=== PATIENT | female | born 1945 | race Caucasian/White ===

== ENCOUNTER 2017-07-11 16:09 | Inpatient (IN) | payer OTHER ==
[~2017-07-11] VITALS: Ht 157.5 cm; Wt 78.7 kg
[~2017-07-11 16:09] MED LIST: CIPR-255 PO; METR-163 PO; PRLSR20 PO; RANI300T2 PO
[2017-07-11] MEDS ORDERED: DILTIAZEM HCL 5 MG/ML 5 ML VIAL IV STA (16:34)
[2017-07-11] MEDS ORDERED: ALBUT/IPRATROP 3MG/0.5MG NEB 3 ML VIAL INH STA ×2 (16:34→17:53)
[2017-07-11] MEDS ORDERED: SODIUM CHLORIDE 0.9% 500ML 500 ML IV STA ×2 (16:34→17:53)
[2017-07-11] MEDS ORDERED: AZITHROMYCIN 250 MG TAB PO STA (16:34)
--- NOTE | 2017-07-11 16:36 | EMERGENCY ROOM VISIT NOTE ---
History Report prepared by Jeri: Corona Ruby Under the Supervision of: Dr. Eder Del Cid M.D. First contact with patient: 16:23 Chief Complaint: SHORTNESS OF BREATH Stated Complaint: OTHER Nursing Triage Summary: Patient presents to triage via wheelchair, states "Two weeks ago, I had a bacterial infection in my sinuses. I was on an antibiotic, I think amoxicillin, and it gave me the diarrhea. I finished that and started coughing and feeling short of breath. I saw my doctor on Monday a week ago, and he put me on steriods and cough medication. I took all of that and I still don't feel good. I am still short of breath. I am bringing up white phlegm when I cough. I am nauseated and burping a lot. I have a headache, body aches and my chest feels very heavy. Sometimes, when I am coughing or moving around, I almost feel like I could pass out." EKG completed in triage; patient is in A.Fib. Patient denies a history of A.Fib. History of Present Illness The patient is a 72 year old white female with a past medical history of an abdominal aneurysm, diverticulosis, GERD, hypokalemia, tobacco abuse who presents to the ED with a cc of worsening shortness of breath beginning earlier today. Positive nausea, headache, dizziness, cough. Negative abdominal pain, vomiting, bowel movement problems, urinary symptoms, leg swelling. She notes that she has been short of breath "for days", but today the shortness of breath got much worse and has been constant, and she is short of breath with laying flat. The patient states that her breathing difficulties are not worsened with exertion. She adds that she has been having a cough with white phlegm. She notes that she was on an antibiotic recently for a sinus infection, and was on a regiment of steroids that she just finished a few days ago. The patient notes no recent travels, or any history of blood clots in her legs or lungs. She states that she only takes reflux medications daily. She has smoked for most of her life, and states that she smokes a pack a day, but over the past week she has decreased her number of cigarettes. Source of History: patient Onset: Earlier today Position: other (global) Symptom Intensity: "can't breathe" Quality: other (shortness of breath) Timing: worsening Associated Symptoms: + headache, + nausea, No vomiting, No abdominal pain, No urinary symptoms Note: Positive dizziness. Negative leg swelling, bowel movement problems. Review of Systems See HPI for pertinent positives and negatives. A total of ten systems were reviewed and were otherwise negative. Past Medical & Surgical Medical Problems: (1) Abdominal aneurysm (2) Carpal tunnel syndrome (3) Colon polyp (4) Diverticulosis (5) GERD (gastroesophageal reflux disease) (6) Sciatica (7) Tobacco abuse Surgical Problems: (1) H/O tubal ligation Family History Diabetes mellitus FATHER SISTER FH: colon cancer MOTHER FH: heart disease FATHER SISTER Social History Smoking Status: Current Every Day Smoker Marital Status: Housing Status: lives with significant other Occupation Status: retired Current/Historical Medications Scheduled Omeprazole (Prilosec), 20 MG PO BID Ranitidine (Zantac), 300 MG PO HS Allergies Coded Allergies: Adhesives (Verified Allergy, Mild, BLISTERS, 07/11/17) NO KNOWN DRUG ALLERGIES (Verified Allergy, Mild, ., 07/11/17) Physical Exam Vital Signs Date Time Temp Pulse Resp B/P (MAP) Pulse Ox O2 Delivery O2 Flow Rate FiO2 07/11/17 18:34 118 23 114/63 93 Room Air 07/11/17 16:50 104 29 119/72 100 Mask 6.0 Nebulizer 07/11/17 16:47 100 Mask 6.0 07/11/17 16:20 95 Room Air 07/11/17 16:11 36.7 137 20 104/71 95 Room Air Physical Exam GENERAL: Awake, alert, well-appearing, mild distress, wearing glasses HENT: Normocephalic, atraumatic. Edentulous. EYES: Normal conjunctiva. Sclera non-icteric. NECK: Supple. No nuchal rigidity. FROM. RESPIRATORY: Diffuse inspiratory and expiratory wheezing throughout. Mild tachypnea. CARDIAC: Tachy and irregular, no MRG ABDOMEN: Soft, NTND, BS+ MSK: No chest wall TTP, no LE edema. Negative Homans sign, no calf pain. NEURO: GCS 15, CN 2-12 intact, moves all 4s on command SKIN: No rash or jaundice noted. Medical Decision & Procedures ER Provider Diagnostic Interpretation: X-ray: Per my interpretation, radiologist review. CHEST ONE VIEW PORTABLE CLINICAL HISTORY: EVALUATE RESPIRATORY DISTRESS.DYSPNEA COMPARISON STUDY: Chest radiograph June 05, 2015. FINDINGS: Lung volumes are normal. No pneumothorax or pleural effusion is noted. There is no consolidation or evidence for pulmonary edema. Cardiac size is normal. Mediastinal contours are normal. IMPRESSION: No acute cardiopulmonary findings. Electronically signed by: Sunil Kramer M.D. 07/11/2017 5:05 PM Dictated Date/Time: 07/11/2017 5:05 PM Laboratory Results 07/11/17 16:47 Red Blood Count 5.60, Mean Corpuscular Volume 85.2, Mean Corpuscular Hemoglobin 29.6, Mean Corpuscular Hemoglobin Concent 34.8, Mean Platelet Volume 11.4, Neutrophils (%) (Auto) 55.4, Lymphocytes (%) (Auto) 33.9, Monocytes (%) (Auto) 8.1, Eosinophils (%) (Auto) 2.0, Basophils (%) (Auto) 0.2, Neutrophils # (Auto) 6.97, Lymphocytes # (Auto) 4.26, Monocytes # (Auto) 1.02, Eosinophils # (Auto) 0.25, Basophils # (Auto) 0.02 07/11/17 16:47 Test 07/11/17 16:47 07/11/17 18:11 White Blood Count 12.57 K/uL (4.8-10.8) Red Blood Count 5.60 M/uL (4.2-5.4) Hemoglobin 16.6 g/dL (12.0-16.0) Hematocrit 47.7 % (37-47) Mean Corpuscular Volume 85.2 fL (80-100) Mean Corpuscular Hemoglobin 29.6 pg (25-34) Mean Corpuscular Hemoglobin Concent 34.8 g/dl (32-36) Platelet Count 303 K/uL (130-400) Mean Platelet Volume 11.4 fL (7.4-10.4) Neutrophils (%) (Auto) 55.4 % Lymphocytes (%) (Auto) 33.9 % Monocytes (%) (Auto) 8.1 % Eosinophils (%) (Auto) 2.0 % Basophils (%) (Auto) 0.2 % Neutrophils # (Auto) 6.97 K/uL (1.4-6.5) Lymphocytes # (Auto) 4.26 K/uL (1.2-3.4) Monocytes # (Auto) 1.02 K/uL (0.11-0.59) Eosinophils # (Auto) 0.25 K/uL (0-0.5) Basophils # (Auto) 0.02 K/uL (0-0.2) RDW Standard Deviation 42.8 fL (36.4-46.3) RDW Coefficient of Variation 13.7 % (11.5-14.5) Immature Granulocyte % (Auto) 0.4 % Immature Granulocyte # (Auto) 0.05 K/uL (0.00-0.02) Prothrombin Time 10.0 SECONDS (9.0-12.0) Prothromb Time International Ratio 1.0 (0.9-1.1) Activated Partial Thromboplast Time 25.2 SECONDS (21.0-31.0) Partial Thromboplastin Ratio 1.0 Anion Gap 9.0 mmol/L (3-11) Est Creatinine Clear Calc Drug Dose 53.3 ml/min Estimated GFR () 69.4 Estimated GFR (Non- 59.9 BUN/Creatinine Ratio 15.3 (10-20) Calcium Level 8.8 mg/dl (8.5-10.1) Phosphorus Level 2.9 mg/dl (2.5-4.9) Magnesium Level 2.3 mg/dl (1.8-2.4) Total Bilirubin 0.7 mg/dl (0.2-1) Aspartate Amino Transf (AST/SGOT) 22 U/L (15-37) Alanine Aminotransferase (ALT/SGPT) 47 U/L (12-78) Alkaline Phosphatase 155 U/L (45-117) Troponin I < 0.015 ng/ml (0-0.045) Pro-B-Type Natriuretic Peptide 268 pg/ml (0-900) Total Protein 7.4 gm/dl (6.4-8.2) Albumin 3.3 gm/dl (3.4-5.0) Globulin 4.1 gm/dl (2.5-4.0) Albumin/Globulin Ratio 0.8 (0.9-2) Venous Blood pH 7.45 (7.36-7.41) Venous Blood Partial Pressure CO2 34 mmHg (38.0-50.0) Venous Blood Partial Pressure O2 43 mmHg Venous Blood HCO3 23 mmol/L Venous Blood Oxygen Saturation 79.2 % Venous Blood Base Excess -0.2 mEq/L Laboratory results reviewed by me Medications Administered Medications (Trade) Dose Ordered Sig/Nataliya Route Start Time Stop Time Status Last Admin Dose Admin Albuterol/ Ipratropium (Duoneb) 6 ml NOW STAT INH 07/11/17 16:34 07/11/17 16:39 DC 07/11/17 16:46 6 ML Azithromycin (Zithromax Tab) 500 mg NOW STAT PO 07/11/17 16:34 07/11/17 16:39 DC 07/11/17 16:46 500 MG Sodium Chloride 500 ml @ 999 mls/hr Q31M STAT IV 07/11/17 16:34 07/11/17 17:04 DC 07/11/17 16:46 999 MLS/HR Diltiazem HCl (Cardizem Inj) 20 mg NOW STAT IV 07/11/17 16:34 07/11/17 16:39 DC 07/11/17 16:43 20 MG Potassium Chloride (Klor-Con Tab) 40 meq NOW STAT PO 07/11/17 17:34 07/11/17 17:35 DC 07/11/17 17:50 40 MEQ Sodium Chloride 500 ml @ 999 mls/hr Q31M STAT IV 07/11/17 17:53 07/11/17 18:23 DC 07/11/17 18:34 999 MLS/HR Albuterol/ Ipratropium (Duoneb) 6 ml ONE STAT INH 07/11/17 17:53 07/11/17 17:54 DC 07/11/17 18:33 6 ML Magnesium Sulfate (Magnesium Sulfate) 1 gm NOW STAT IV 07/11/17 17:53 07/11/17 17:54 DC 07/11/17 18:33 1 GM ECG Per My Interpretation Indication: SOB/dyspnea Rate (beats per minute): 134 Rhythm: atrial fibrillation (with RVR) Findings: other (normal qrs, normal axis, questionable twi in avl) ED Course 162: The patient was evaluated in room B8. A complete history and physical exam was performed. 1737: Upon reexamination, the patient is still wheezing but feels a little better. I discussed the test results and treatment plan with her. The patient will be evaluated for further management. 1747: Discussed the patient's case with Marge Guillen. The patient will be evaluated for further treatment and disposition. Medical Decision Nursing notes reviewed. Ancillary studies and prior records reviewed. The patient is a 72 year old white female with a past medical history of an abdominal aneurysm, diverticulosis, GERD, hypokalemia, tobacco abuse who presents to the ED with a cc of worsening shortness of breath beginning earlier today. Positive nausea, headache, dizziness, cough. Negative abdominal pain, vomiting, bowel movement problems, urinary symptoms, leg swelling. Differential diagnosis: Etiologies such as infections, reactive airway disease, pneumonia, pneumothorax , COPD, CHF, cardiac ischemia, pulmonary embolism, musculoskeletal, gastrointestinal, as well as others were entertained. Patient was seen and evaluated the bedside. She was presenting with some shortness of breath. Patient has had an upper respiratory infection for which she was being treated with antibiotics and then had finished a course of steroids for some respiratory issues. Patient does have a significant smoking history of approximately 50 pack years. Patient was counseled on smoking cessation. Patient was told that this along with likely undiagnosed COPD given her inspiratory and expiratory wheezing, as well as her irregular heart rate is rapid or probably all contributing. Patient does not have any lower extremity swelling patient and has no calf pain. Patient did have blood work completed, EKG, troponin, BNP, chest x-ray. Patient also had a VBG ordered. The patient was given to duo nebs. She was also given IV fluids as well as some diltiazem. Diltiazem was given instead of beta-debbie given her likely concomitant COPD exacerbation and need for beta agonist. Upon reassessment the patient is feeling mildly improved. Patient's tachycardia had improved. Patient does still have expiratory wheezes. The patient was ordered some additional duo nebs, IV fluids, and some magnesium. Patient does have a chads vascular score of 4. I did discuss that the patient would likely need to be anticoagulated given patient's A. fib. I am unsure as to when she would have started to have the A. fib and the patient is also unsure. Patient's blood work was otherwise fairly unremarkable. Patient blood cell count was at the high end of normal. Patient had normal kidney function although did have some likely prerenal azotemia. Patient was given fluids. Patient was given the azithromycin given the possible COPD exacerbation and productive sputum. Patient's troponin was undetectable. Patient's BNP was not elevated. I did discuss the patient's case with the on-call hospitalist who agreed to further evaluate and treat the patient. Medication Reconcilliation Current Medication List: was personally reviewed by me Blood Pressure Screening Patient's blood pressure: Normal blood pressure Consults Time Called: 1743 Consulting Physician: Marge Guillen Returned Call: [phone] Discussed the patient's case with Marge Guillen. The patient will be evaluated for further treatment and disposition. Impression Primary Impression: Atrial fibrillation with RVR Additional Impressions: COPD exacerbation Encounter for smoking cessation counseling Hypokalemia Critical Care I have personally spent greater than 50 minutes of critical care time in the direct management of this patient. This includes bedside care, interpretation of diagnostic studies, and testing, discussion with consultants, patient, and family members, and other required patient management activities. This 50 minutes is in excess of all separately billable procedures. Scribe Attestation The scribe's documentation has been prepared under my direction and personally reviewed by me in its entirety. I confirm that the note above accurately reflects all work, treatment, procedures, and medical decision making performed by me. Departure Information Dispostion Being Evaluated By Hospitalist Referrals No Doctor, Assigned (PCP) Patient Instructions My [facility] Problem Qualifiers
[2017-07-11 17:01] LABS: BASO % 0.2 %; BASO ABS # 0.02 K/uL (0-0.2); EOS ABS # 0.25 K/uL (0-0.5); HEMATOCRIT 47.7 % (37-47); HEMOGLOBIN 16.6 g/dL (12.0-16.0); IG# 0.05 K/uL (0.00-0.02); LYMPH % 33.9 %; LYMPH ABS # 4.26 K/uL (1.2-3.4); MEAN CELL VOLUME 85.2 fL (80-100); MEAN CORPUSCULAR HEMOGLOBIN 29.6 pg (25-34); MEAN CORPUSCULAR HGB CONC 34.8 g/dl (32-36); MEAN PLATELET VOLUME 11.4 fL (7.4-10.4); MONO % 8.1 %; MONO ABS # 1.02 K/uL (0.11-0.59); NEUT % 55.4 %; NEUT ABS # 6.97 K/uL (1.4-6.5); PLATELET COUNT 303 K/uL (130-400); RED CELL DISTRIBUTION WIDTH CV 13.7 % (11.5-14.5); RED CELL DISTRIBUTION WIDTH SD 42.8 fL (36.4-46.3); WHITE BLOOD COUNT 12.57 K/uL (4.8-10.8)
--- NOTE | 2017-07-11 17:06 | DIAGNOSTIC IMAGING REPORT ---
CHEST ONE VIEW PORTABLE CLINICAL HISTORY: EVALUATE RESPIRATORY DISTRESS.DYSPNEA COMPARISON STUDY: Chest radiograph June 05, 2015. FINDINGS: Lung volumes are normal. No pneumothorax or pleural effusion is noted. There is no consolidation or evidence for pulmonary edema. Cardiac size is normal. Mediastinal contours are normal. IMPRESSION: No acute cardiopulmonary findings. Electronically signed by: Sunil Kramer M.D. 07/11/2017 5:05 PM Dictated Date/Time: 07/11/2017 5:05 PM
[2017-07-11 17:07] LABS: PTT PATIENT 25.2 SECONDS (21.0-31.0)
[2017-07-11 17:18] LABS: ALBUMIN 3.3 gm/dl (3.4-5.0); AST/SGOT 22 U/L (15-37); BLOOD UREA NITROGEN 15 mg/dl (7-18); CALCIUM 8.8 mg/dl (8.5-10.1); CARBON DIOXIDE 22 mmol/L (21-32); CREATININE 0.96 mg/dl (0.60-1.20); GLUCOSE 185 mg/dl (70-99); POTASSIUM 3.4 mmol/L (3.5-5.1); SODIUM 137 mmol/L (136-145)
[2017-07-11 17:23] LABS: ALKALINE PHOSPHATASE 155 U/L (45-117); ALT/SGPT 47 U/L (12-78); PHOSPHORUS 2.9 mg/dl (2.5-4.9); TOTAL PROTEIN 7.4 gm/dl (6.4-8.2)
[2017-07-11] MEDS ORDERED: POTASSIUM CHLORIDE 20 MEQ TABCR PO STA (17:34)
[2017-07-11] MEDS ORDERED: MAGNESIUM SULFATE 1GM / D5W 1 GM BAG IV STA (17:53)
[2017-07-11] MEDS ORDERED: ACETAMINOPHEN 325 MG TAB PO PRN (19:15)
[2017-07-11] MEDS ORDERED: ONDANSETRON INJ 2 MG/ML 2 ML VIAL IV PRN (19:15)
[2017-07-11] MEDS ORDERED: NITROGLYCERIN 0.4 MG SL PER TAB CHARGE SL PRN (19:15)
[2017-07-11] MEDS ORDERED: ASPIRIN 81 MG ECTAB PO STA (19:34)
[2017-07-11] MEDS ORDERED: LEVALBUTEROL 0.63MG/3 ML NEB INH PRN (19:45)
[2017-07-11] MEDS ORDERED: METOPROLOL TARTRATE 1 MG/ML VIAL IV PRN (19:45)
[2017-07-11] MEDS ORDERED: LEVALBUTEROL/IPRATROPIUM NEB INH PRN (19:45)
[2017-07-11] MEDS ORDERED: IPRATROPIUM BROMIDE NEB SOLN 0.02% 2.5 ML VIAL INH PRN (19:45)
--- NOTE | 2017-07-11 20:07 | History and Physical ---
History & Physical Date & Time of Service: Jul 11, 2017 at 19:41 Chief Complaint: OTHER Primary Care Physician: Venu Olivera D.O. History of Present Illness Source: patient, clinic records, hospital records Pt is 72 y/o F with PMH diverticulitis s/p sigmoid colectomy, GERD, hiatal hernia presented to ER with c/o SOB x 1 week. States a couple of weeks ago had sinus congestion/MITCHELL and was treated for sinusitis. States was feeling a little better then one week ago started with nausea, SOB, anterior chest tightness and heaviness and cough productive white sputum. Hasn't been eating or drinking well past week. Seen at urgent care and was started on prednisone x 6 days. Pt states finished on 07/08/17. Symptoms of SOB, chest tightness worse today prompting ER visit. Seen by PCP 05/08/17 for chest pain with cough and had negative PE CT scan at that time and pt states was feeling well after until the sinus symptoms started. Pt denies previous dx COPD in past. Is 1ppd smoker x 30 years. Reports grandson had URI symptoms recently also. Denies fever/chills, diaphoresis, V/D/C, dizziness, syncope, vision changes, neck pain, orthopnea, palpitations, choking, abdominal pain, paresthesias, weakness, extremity weakness, extremity edema, rashes, urinary symptoms, or night sweats. In ER found to be in a-fib. HR in reported in 150's. Also reported significant wheezing. Was given Cardizem 20mg, 500ml bolus NSS, duoneb x 2 and additional NSS 500ml bolus, zithromax 500mg po. HR down to 104-118. Past Medical/Surgical History Medical Problems: (1) Abdominal aneurysm Status: Chronic (2) Carpal tunnel syndrome Status: Chronic (3) Colon polyp Status: Resolved (4) Colonic diverticular abscess Status: Resolved (5) Diverticulitis Status: Resolved (6) Diverticulosis Status: Chronic (7) Encounter for smoking cessation counseling Status: Resolved (8) GERD (gastroesophageal reflux disease) Status: Chronic (9) Sciatica Status: Chronic (10) Tobacco abuse Status: Chronic Surgical Problems: (1) H/O tubal ligation Status: Chronic (2) Hx of colectomy Permanent Comment: 12/2015 - diverticulitis - hx sigmoid colectomy - [facility] Status: Resolved Family History Diabetes mellitus FATHER SISTER FH: colon cancer MOTHER FH: heart disease FATHER SISTER Social History Smoking Status: Current Every Day Smoker (1ppd x 30 years) Smokeless Tobacco Use: No Alcohol Use: none Drug Use: none Marital Status: Housing status: lives with family Occupational Status: retired Allergies Coded Allergies: Adhesives (Verified Allergy, Mild, BLISTERS, 07/11/17) NO KNOWN DRUG ALLERGIES (Verified Allergy, Mild, ., 07/11/17) Home Medications Scheduled Omeprazole (Prilosec), 20 MG PO BID Ranitidine (Zantac), 300 MG PO HS Review of Systems See HPI for pertinent positives & negatives. All other systems reviewed and were otherwise negative Physical Exam Vital Signs Date Time Temp Pulse Resp B/P (MAP) Pulse Ox O2 Delivery O2 Flow Rate FiO2 07/11/17 18:34 118 23 114/63 93 Room Air 07/11/17 16:50 104 29 119/72 100 Mask 6.0 Nebulizer 07/11/17 16:47 100 Mask 6.0 07/11/17 16:20 95 Room Air 07/11/17 16:11 36.7 137 20 104/71 95 Room Air General Appearance: WD/WN, no apparent distress Head: normocephalic, atraumatic Eyes: normal inspection, sclerae normal ENT: hearing grossly normal, pharynx normal, + pertinent finding (mucous membranes dry) Neck: supple, trachea midline Respiratory/Chest: no respiratory distress, no accessory muscle use, + decreased breath sounds, + wheezing (scattered throughout) Cardiovascular: no murmur, + tachycardia, + irregularly irregular Abdomen/GI: normal bowel sounds, non tender, soft Extremities/Musculoskelatal: normal capillary refill, no pedal edema, non- tender Neurologic/Psych: alert, normal mood/affect, oriented x 3 Skin: normal color, warm/dry Diagnostics Laboratory Results Results Past 24 Hours Test 07/11/17 16:47 07/11/17 18:11 Range/Units White Blood Count 12.57 4.8-10.8 K/uL Red Blood Count 5.60 4.2-5.4 M/uL Hemoglobin 16.6 12.0-16.0 g/dL Hematocrit 47.7 37-47 % Mean Corpuscular Volume 85.2 80-100 fL Mean Corpuscular Hemoglobin 29.6 25-34 pg Mean Corpuscular Hemoglobin Concent 34.8 32-36 g/dl Platelet Count 303 130-400 K/uL Mean Platelet Volume 11.4 7.4-10.4 fL Neutrophils (%) (Auto) 55.4 % Lymphocytes (%) (Auto) 33.9 % Monocytes (%) (Auto) 8.1 % Eosinophils (%) (Auto) 2.0 % Basophils (%) (Auto) 0.2 % Neutrophils # (Auto) 6.97 1.4-6.5 K/uL Lymphocytes # (Auto) 4.26 1.2-3.4 K/uL Monocytes # (Auto) 1.02 0.11-0.59 K/uL Eosinophils # (Auto) 0.25 0-0.5 K/uL Basophils # (Auto) 0.02 0-0.2 K/uL RDW Standard Deviation 42.8 36.4-46.3 fL RDW Coefficient of Variation 13.7 11.5-14.5 % Immature Granulocyte % (Auto) 0.4 % Immature Granulocyte # (Auto) 0.05 0.00-0.02 K/uL Prothrombin Time 10.0 9.0-12.0 SECONDS Prothromb Time International Ratio 1.0 0.9-1.1 Activated Partial Thromboplast Time 25.2 21.0-31.0 SECONDS Partial Thromboplastin Ratio 1.0 Sodium Level 137 136-145 mmol/L Potassium Level 3.4 3.5-5.1 mmol/L Chloride Level 106 98-107 mmol/L Carbon Dioxide Level 22 21-32 mmol/L Anion Gap 9.0 3-11 mmol/L Blood Urea Nitrogen 15 7-18 mg/dl Creatinine 0.96 0.60-1.20 mg/dl Est Creatinine Clear Calc Drug Dose 53.3 ml/min Estimated GFR () 69.4 Estimated GFR (Non- 59.9 BUN/Creatinine Ratio 15.3 10-20 Random Glucose 185 70-99 mg/dl Calcium Level 8.8 8.5-10.1 mg/dl Phosphorus Level 2.9 2.5-4.9 mg/dl Magnesium Level 2.3 1.8-2.4 mg/dl Total Bilirubin 0.7 0.2-1 mg/dl Aspartate Amino Transf (AST/SGOT) 22 15-37 U/L Alanine Aminotransferase (ALT/SGPT) 47 12-78 U/L Alkaline Phosphatase 155 45-117 U/L Troponin I < 0.015 0-0.045 ng/ml Pro-B-Type Natriuretic Peptide 268 0-900 pg/ml Total Protein 7.4 6.4-8.2 gm/dl Albumin 3.3 3.4-5.0 gm/dl Globulin 4.1 2.5-4.0 gm/dl Albumin/Globulin Ratio 0.8 0.9-2 Venous Blood pH 7.45 7.36-7.41 Venous Blood Partial Pressure CO2 34 38.0-50.0 mmHg Venous Blood Partial Pressure O2 43 mmHg Venous Blood HCO3 23 mmol/L Venous Blood Oxygen Saturation 79.2 % Venous Blood Base Excess -0.2 mEq/L Diagnostic Radiology CXR: IMPRESSION: No acute cardiopulmonary findings. EKG EKG: a-fib rvr, rate 134, non-specific t-wave abnormality Impression Assessment and Plan A-FIB RVR New onset. In ER found to be in a-fib. HR in reported in 150's upon initial ER. Was given Cardizem 20mg, total 1L NSS. HR down to 104-118. Negative initial troponin. Pt was recently on prednisone for URI and cough symptoms. Pt clinically appears dehydrated. Probable secondary to dehydration, recent illness -TSH added -IVF -heparin IV -trend troponin -echo -lopressor 5mg IV HR>110 -metoprolol 25mg po BID -cardiology consult COPD EXACERBATION Pt finished 6 day course prednisone on 07/08/17. Pt with probable COPD with hx 1ppd x 30 year smoker. URI symptoms and diffuse wheezing on exam today. Afebrile. Given duoneb x 2 and Zithromax 500mg po in ER. -influenza swab -Xopenex/Atrovent -doxycycline -Prednisone 40mg po -O2 per protocol -IVF -repeat CBC, PRP in am LEUKOCYTOSIS WBC: 12. Pt finished prednisone 6 day course on 07/08/17. Probable elevation from steroids. Negative CXR -repeat CBC -doxycycline HYPOKALEMIA K: 3.4. Pt given 40meq K in ER. Probable secondary to poor oral intake. -monitor electrolytes HYPERGLYCEMIA Glucose: 185. No hx DM. probable steroid induced HA1c added -Novolog sliding scale GERD -continue PPI, H2 debbie Hx DIVERTICULITIS S/P SIGMOID COLECTOMY No diarrhea or abdominal pain DVT Prophylaxis -Heparin IV Disposition admit tele DNR/DNI as per discussion with pt Follows with Dr Olivera for routine care Pt was seen with Dr Loyola. See addendum Attending Note: Patient is a 72 yr female presents with history of SOB, nausea, dizziness, chest heaviness/tightness, poor appetite and productive cough as per HPI. Patient had recent URI and recently completed prednisone course. Patient was found to be in Atrial Fibrillation with HR in 140s. Please review HPI for complete details. Physical Exam: Vitals signs as noted above General Appearance:Moderately built and nourished, no apparent distress Head: normocephalic, Atraumatic Eyes: normal inspection, EOMI, PERRL Neck: supple, Trachea midline Respiratory/Chest: Coarse breath sounds, B/L wheezing Cardiovascular: Irregularly Irregular, No murmur Abdomen/GI:Soft, Non tender, Bowel sounds present Extremities/Musculoskelatal:normal inspection, no edema Neurologic/Psych:AAOX3, grossly no focal neurological deficits Skin:normal color,warm Assessment and Plan: New Onset Afib RVR: CHDS2 score:2 Started on IV Heparin ggt for anticoagulation TSH: normal Check ECHO CXR: no acte process Monitor electrolytes Start on metoprolol Lopressor PRN Cardiology consulted Trend cardiac enzymes replace electrolytes Acute on Chronic [employer] exacerbation: Agree with above management I personally reviewed the record. Patient is interviewed and examined at bedside. Patient's care is coordinated with Marge Blanchard PA-C. Please refer to the documentation above for details of patient's presentation and for discussion of other issues. Resuscitation Status DNR/DNI VTE Prophylaxis Will order VTE Prophylaxis: Yes Additional Copies To Venu Olivera D.O.
[2017-07-11] MEDS: IPRATROPIUM BROMIDE NEB SOLN 0.02% 2.5 ML VIAL INH SCH (20:11)
[2017-07-11] MEDS: LEVALBUTEROL 1.25MG/0.5ML NEB INH SCH (20:12)
[2017-07-11] MEDS ORDERED: GLUCOSE 40% GEL 15 GM TUBE PO PRN (20:15)
[2017-07-11] MEDS ORDERED: GLUCOSE 10 TABS/TUBE PO PRN (20:15)
[2017-07-11] MEDS ORDERED: DEXTROSE 50% 50 ML SYR IV PRN (20:15)
[2017-07-11] MEDS ORDERED: GLUCAGON FOR INJ 1 MG VIAL SQ PRN (20:15)
[2017-07-11] MEDS ORDERED: HEPARIN 25000 UNIT/500 ML D5W ONE (20:24)
[2017-07-11] MEDS ORDERED: HEPARIN SOD 5000 UNIT/0.5 ML CARP ONE (20:24)
[2017-07-11 20:38] VITALS: BP 119/78; PULSE 130; TEMP 36.4; O2SAT 98; Ht 157.5 cm; Wt 78.7 kg
[2017-07-11] MEDS ORDERED: LEVALBUTEROL/IPRATROPIUM NEB INH SCH (21:00)
[2017-07-11] MEDS ORDERED: SODIUM CHLORIDE 0.9% 1000ML 1,000 ML IV SCH (21:15)
[2017-07-11] MEDS ORDERED: HEPARIN IV BOLUS 5,000 UNIT in SYRINGE 0 ML IV ONE (21:30)
[2017-07-11] MEDS: PANTOprazole SOD 40 MG TAB PO SCH (21:39)
[2017-07-11] MEDS: METOPROLOL TARTRATE 25 MG TAB PO SCH (21:39)
[2017-07-11] MEDS: RANITIDINE HCL 150 MG TAB PO SCH (21:40)
[2017-07-11] MEDS: DOXYCYCLINE HYCLATE 100 MG CAP PO SCH (21:40)
[2017-07-11] MEDS: INSULIN ASPART 100 UNITS/ML 3 ML PEN SC SCH (21:42)
[2017-07-11] MEDS: HEPARIN 25,000 UNIT/500ML D5W 500 ML IV SCH (21:46)
[2017-07-11 22:54] LABS: INFLUENZA A PCR Neg for Influ A (NEG); INFLUENZA B PCR Neg for Influ B (NEG)
[2017-07-11] MEDS ORDERED: POTASSIUM CHLORIDE 10 MEQ TABCR PO STA (23:17)
[2017-07-11 23:20] VITALS: BP 97/60; PULSE 74; TEMP 37; O2SAT 96
[2017-07-12] VITALS (9 sets, daily range): BP systolic 98–115; BP diastolic 61–69; PULSE 60–85; TEMP 36.4–37; O2SAT 92–98
[2017-07-12] MEDS: IPRATROPIUM BROMIDE NEB SOLN 0.02% 2.5 ML VIAL INH SCH ×4 (01:58→19:55)
[2017-07-12] MEDS: LEVALBUTEROL 1.25MG/0.5ML NEB INH SCH ×4 (01:59→19:55)
[2017-07-12 02:50] LABS: HEMOGLOBIN 13.4 g/dL (12.0-16.0); MEAN CELL VOLUME 86.5 fL (80-100); MEAN CORPUSCULAR HEMOGLOBIN 29.7 pg (25-34); MEAN CORPUSCULAR HGB CONC 34.4 g/dl (32-36); MEAN PLATELET VOLUME 10.8 fL (7.4-10.4); PLATELET COUNT 242 K/uL (130-400); RED CELL DISTRIBUTION WIDTH CV 14.2 % (11.5-14.5); RED CELL DISTRIBUTION WIDTH SD 44.3 fL (36.4-46.3); WHITE BLOOD COUNT 11.57 K/uL (4.8-10.8)
[2017-07-12 03:04] LABS: CALCIUM 8.2 mg/dl (8.5-10.1); CREATININE 0.83 mg/dl (0.60-1.20); POTASSIUM 5.4 mmol/L (3.5-5.1)
[2017-07-12] MEDS ORDERED: INSULIN GLARGINE SOLOSTAR 100 UNITS/ML 3 ML PEN SC ONE (03:09)
[2017-07-12] MEDS: HEPARIN 25,000 UNIT/500ML D5W 500 ML IV SCH ×2 (04:07→18:59)
[2017-07-12 07:28] LABS: HEMOGLOBIN A1C 6.2 % (4.5-5.6)
[2017-07-12] MEDS: PANTOprazole SOD 40 MG TAB PO SCH ×2 (08:11→20:46)
[2017-07-12] MEDS: DOXYCYCLINE HYCLATE 100 MG CAP PO SCH ×2 (08:11→20:46)
[2017-07-12] MEDS: METOPROLOL TARTRATE 25 MG TAB PO SCH ×2 (08:11→20:46)
[2017-07-12] MEDS: INSULIN ASPART 100 UNITS/ML 3 ML PEN SC SCH ×4 (08:13→20:45)
--- NOTE | 2017-07-12 09:59 | Clinical Documentation Query ---
DINA Mata : CLINICAL DOCUMENTATION QUERY Patient is a 72 year old female admitted for evaluation and treatment of atrial fibrillation with RVR and COPD exacerbation. Initially treated with IV Cardizem and IVF boluses. Initial HR of 150's down to 110's with these measures. Heparin infusion was initiated. Serum troponin of 0.103 ng/ml, with 0.093 ng/ml this a.m. Admission EKG with non-specific T wave abnormality. Patient has since converted to NSR with resolution of T wave abnormality. As appropriate, consider documentation as suggested below. Thank you. In your clinical opinion is this patient being managed for: ( x ) (Possible/Suspected) Myocardial demand ischemia ( ) Not Agree ( ) Other explanation of clinical findings (Please Explain) ( ) Unable to determine (Please Define) ( ) Need to Discuss The medical record reflects the following clinical findings, treatment, and risk factors. Clinical Indicators: As above Treatment: Initially treated with IV Cardizem and IVF boluses. Initial HR of 150's down to 110's with these measures. Heparin infusion was initiated. Serial EKG's and troponin's. Cardiology consultation, telemetry Risk Factors: Age, atrial fibrillation with RVR. smoker Please clarify and document your clinical opinion in the progress notes and discharge summary. Terms such as "probable", "suspected", "likely", "questionable", "possible", or "still to be ruled out" are acceptable. IF IN AGREEMENT, YOU MUST DOCUMENT ABOVE DIAGNOSTIC STATEMENT IN DAILY PROGRESS NOTES AND DISCHARGE SUMMARY. This document is not part of the patient's record. Thank You, Rafy Bella, BAKARI [phone]
--- NOTE | 2017-07-12 10:15 | Cardiology Consultation ---
Cardiology Consultation Date of Consultation: Jul 12, 2017 Requesting Physician: Milla Attending [employer] Mechanic: Lloyd (Price De PA-C) History of Present Illness History of Present Illness: Ms. iSmmons is a 72-year-old female who is being seen at the request of Ms. Marge Blanchard PA-C/Dr. Kole Loyola MD. reason for consultation is atrial fibrillation. Patient describes having a recent sinus infection that was treated at the [facility]. A couple days later she developed what she describes as a severe chest cold that was treated with a 6 day course of prednisone (completed on Monday). Thereafter she continued to have a cough and feel poorly. She notes not being able to get her breath, nausea, no appetite. Yesterday she went to [facility] to pay her bills where she was very tired and dyspneic with minimal activity. She left [facility] and went back home to rest. She later returned to [facility] and continued to feel poorly. She then called her niece who transported her to the [facility] Emergency Room where she was seen and evaluated. EKG on presentation revealed new onset atrial fibrillation with rapid ventricular response. She was given 20 mg IV Cardizem, Duoneb x 2, fluid resuscitation, and zithromax. She was then admitted to telemetry. At 23:01:30 the patient converted from atrial fibrillation with a rapid ventricular response to sinus bradycardia with a 5.1 second conversion pause that was symptomatic. (Price De PA-C) Past Medical/Surgical History Problem List: Splenic artery aneurysm Colonic diverticular abscess status post partial colectomy. Chronic tobacco abuse GERD. Hiatal hernia Sciatica Carpal tunnel syndrome Tubal ligation (Price De PA-C) Family History Mother had a history of colon cancer, passing at the age of 81 with a myocardial infarction. Father with an CO at 69. Brother with an CO 53. Sister status post mitral valve surgery. (Price De PA-C) Diabetes mellitus FATHER SISTER FH: colon cancer MOTHER FH: heart disease FATHER SISTER (Irving Desai D.O.) Social History Smoker, currently 1 pack per day. She smoked for approximately 40 years. No significant alcohol use. No illegal drug use. . 2 children, 1 son and 1 daughter. Daughter with Retired, working for [employer] in [place] in the [employer] department. Resides in [place] (Price De PA-C) Review Of Systems Complete review of systems: Glasses. Cataracts. Floaters. GERD. Reflux. Hiatal hernia. Nausea. Vomiting last night 1. Diarrhea. Decreased appetite. History of colonic polyps. Partial colectomy for diverticulitis. Sciatica. Osteoarthritis. Diverticulosis. Carpal tunnel status post release. No current fevers or chills. No headaches. No head trauma. Stable exertional dyspnea. No orthopnea or PND. No lower extremity peripheral edema. No hemoptysis. No history of TIA, CVA, or seizure. The patient denies prior cardiac history. She specifically denies history of arrhythmias, heart murmur, rheumatic fever, scarlet fever, congestive heart failure, coronary artery disease, or myocardial infarction. Complete review of systems is otherwise as stated above, negative, noncontributory. (Price De PA-C) Allergies Coded Allergies: Adhesives (Verified Allergy, Mild, BLISTERS, 07/11/17) NO KNOWN DRUG ALLERGIES (Verified Allergy, Mild, ., 07/11/17) Medications Reported Home Medications Medications Dose Route/Sig Max Daily Dose Days Date Category Zantac (Ranitidine HCl) 300 Mg Tab 300 Mg PO HS 06/05/15 Reported Prilosec (Omeprazole) 20 Mg Capcr 20 Mg PO BID 06/05/15 Reported (Price De PA-C) Physical Exam Vital Signs (Last 8hrs): Last 8 Hrs Date Time Temp Pulse Resp B/P (MAP) Pulse Ox O2 Delivery O2 Flow Rate FiO2 07/12/17 08:00 Room Air 07/12/17 07:42 36.7 72 19 98/61 (73) 98 Nasal Cannula 2.0 07/12/17 07:20 69 18 98 Nasal Cannula 2.0 07/12/17 04:00 Nasal Cannula 07/12/17 03:38 37.0 61 17 103/62 (76) 95 Nasal Cannula 2.0 07/12/17 01:59 71 18 96 Nasal Cannula 2.0 General: Alert and Oriented x3. NAD. HEENT: Normocephalic Atraumatic. PER, EOMI, conjunctiva and sclera clear Neck: Supple. No carotid bruits noted. No JVD. No HJD. Respiratory: Decreased breath sounds. Diminished. Faint right upper expiratory wheeze. No rales. No rhonchi. Cardiovascular: Regular rate and rhythm, 74 bpm. Grade 2 systolic ejection murmur. No diastolic murmur. No rub. No gallop. PMI is nondisplaced. Abdomen: Normal bowel sounds, soft nontender. no abdominal bruits. Extremities: No edema, no clubbing or cyanosis. distal pulses 2/4 bilaterally. Neuro: No focal deficits. Psychiatric: Normal affect. (Price De PA-C) Data Last 24 Hours Test 07/11/17 16:47 07/11/17 18:11 07/11/17 21:36 07/11/17 21:53 White Blood Count 12.57 K/uL Red Blood Count 5.60 M/uL Hemoglobin 16.6 g/dL Hematocrit 47.7 % Mean Corpuscular Volume 85.2 fL Mean Corpuscular Hemoglobin 29.6 pg Mean Corpuscular Hemoglobin Concent 34.8 g/dl Platelet Count 303 K/uL Mean Platelet Volume 11.4 fL Neutrophils (%) (Auto) 55.4 % Lymphocytes (%) (Auto) 33.9 % Monocytes (%) (Auto) 8.1 % Eosinophils (%) (Auto) 2.0 % Basophils (%) (Auto) 0.2 % Neutrophils # (Auto) 6.97 K/uL Lymphocytes # (Auto) 4.26 K/uL Monocytes # (Auto) 1.02 K/uL Eosinophils # (Auto) 0.25 K/uL Basophils # (Auto) 0.02 K/uL RDW Standard Deviation 42.8 fL RDW Coefficient of Variation 13.7 % Immature Granulocyte % (Auto) 0.4 % Immature Granulocyte # (Auto) 0.05 K/uL Prothrombin Time 10.0 SECONDS Prothromb Time International Ratio 1.0 Activated Partial Thromboplast Time 25.2 SECONDS Partial Thromboplastin Ratio 1.0 Sodium Level 137 mmol/L Potassium Level 3.4 mmol/L Chloride Level 106 mmol/L Carbon Dioxide Level 22 mmol/L Anion Gap 9.0 mmol/L Blood Urea Nitrogen 15 mg/dl Creatinine 0.96 mg/dl Est Creatinine Clear Calc Drug Dose 53.3 ml/min Estimated GFR () 69.4 Estimated GFR (Non- 59.9 BUN/Creatinine Ratio 15.3 Random Glucose 185 mg/dl Calcium Level 8.8 mg/dl Phosphorus Level 2.9 mg/dl Magnesium Level 2.3 mg/dl Total Bilirubin 0.7 mg/dl Aspartate Amino Transf (AST/SGOT) 22 U/L Alanine Aminotransferase (ALT/SGPT) 47 U/L Alkaline Phosphatase 155 U/L Troponin I < 0.015 ng/ml Pro-B-Type Natriuretic Peptide 268 pg/ml Total Protein 7.4 gm/dl Albumin 3.3 gm/dl Globulin 4.1 gm/dl Albumin/Globulin Ratio 0.8 Thyroid Stimulating Hormone (TSH) 1.370 uIu/ml Venous Blood pH 7.45 Venous Blood Partial Pressure CO2 34 mmHg Venous Blood Partial Pressure O2 43 mmHg Venous Blood HCO3 23 mmol/L Venous Blood Oxygen Saturation 79.2 % Venous Blood Base Excess -0.2 mEq/L Bedside Glucose 172 mg/dl Influenza Type A (RT-PCR) Neg for Influ A Influenza Type B (RT-PCR) Neg for Influ B Test 07/11/17 23:04 07/12/17 02:17 07/12/17 03:21 07/12/17 06:13 Troponin I 0.103 ng/ml 0.093 ng/ml White Blood Count 11.57 K/uL Red Blood Count 4.51 M/uL Hemoglobin 13.4 g/dL Hematocrit 39.0 % Mean Corpuscular Volume 86.5 fL Mean Corpuscular Hemoglobin 29.7 pg Mean Corpuscular Hemoglobin Concent 34.4 g/dl RDW Standard Deviation 44.3 fL RDW Coefficient of Variation 14.2 % Platelet Count 242 K/uL Mean Platelet Volume 10.8 fL Activated Partial Thromboplast Time 106.0 SECONDS 69.0 SECONDS Partial Thromboplastin Ratio 4.1 2.7 Sodium Level 139 mmol/L Potassium Level 5.4 mmol/L Chloride Level 110 mmol/L Carbon Dioxide Level 23 mmol/L Anion Gap 6.0 mmol/L Blood Urea Nitrogen 11 mg/dl Creatinine 0.83 mg/dl Est Creatinine Clear Calc Drug Dose 61.3 ml/min Estimated GFR () 82.8 Estimated GFR (Non- 71.4 BUN/Creatinine Ratio 13.5 Random Glucose 167 mg/dl Lactic Acid Level 1.6 mmol/L Calcium Level 8.2 mg/dl Magnesium Level 2.4 mg/dl Bedside Glucose 166 mg/dl Estimated Average Glucose 131 mg/dl Hemoglobin A1c 6.2 % Test 07/12/17 07:17 Bedside Glucose 155 mg/dl Admission chest x-ray showed no acute cardiopulmonary findings. EKG on presentation revealed atrial fibrillation with a rapid ventricular response. Ventricular rate was 134 bpm. Nonspecific T-wave abnormality in the lateral leads. QTc 471 ms. EKG shortly after spontaneous conversion revealed normal sinus rhythm at 74 bpm with a first-degree AV block, low voltage QRS. QTC 444 ms. EKG this morning reveals sinus bradycardia with sinus arrhythmia, first-degree AV block. Ventricular rate is 55 bpm. PA interval is 240 ms. QTc is 438 ms. Continuous case monitor revealed atrial fibrillation with a rapid ventricular response until spontaneous conversion to sinus bradycardia at 23:01: 30 with a 5.1 second conversion pause. (Price De PA-C) Assessment & Plan Admission with new onset symptomatic atrial fibrillation with a rapid ventricular response of unknown duration status post spontaneous conversion back to sinus with 5.1 second symptomatic conversion pause. Recent COPD exacerbation. Mild hypokalemia and probable dehydration noted on presentation. [id number] Score of 4 points. Recommendations: Resting echocardiogram, RE: Mild elevated troponin (no symptoms suggestive of an ACS) and undiagnosed systolic ejection murmur Metoprolol tartrate 25 mg twice per day. Eliquis 5 mg twice a day Probable outpatient stress testing Outpatient ambulatory electrocardiogram. Further recommendations pending the above, evaluation by Dr. Desai, and her ongoing hospitalization. (Price De PA-C) Cardiology attending: Pt seen and examined, agree with findings and assessment as per Price Rachel. Pt spontaneously converted to sinus rhythm this AM with a profound sinus pause of 5.4 s. Currently asymptomatic, tolerating meds well. Would like to observe overnight given the continued pauses that she's been experiencing. (Irving Desai, Larry.O.)
[2017-07-12 10:25] LABS: PTT PATIENT 71.4 SECONDS (21.0-31.0)
--- NOTE | 2017-07-12 13:17 | ECHOCARDIOGRAM REPORT ---
*NOTICE TO RECEIVING CONSTITUTION PARTY AGENCY This information is strictly Confidential and protected under [place] law. [place] law prohibits you from making any further disclosure of this information unless further disclosure is expressly permitted by the written consent of the person to whom it pertains or is authorized by law. A general authorization for the release of medical or other information is not sufficient for this purpose. Hospital accepts no responsibility if the information is made available to any other person, INCLUDING THE PATIENT. Interpretation Summary * Name: MARLEE GALOLWAY Study Date: 07/12/2017 06:42 AM BP: 98/61 mmHg * Patient Location: C.2T\S\S239\S\1 HR: 63 * : 1945 (M/d/yyyy) Gender: Female Height: 62 in * Age: 72 yrs Ethnicity: CA Weight: 175 lb * Ordering Physician: Marge Blanchard * Referring Physician: Self, Referred * Performed By: Jaida Breen, [facility] * * Reason For Study: A-FIB * BSA: 1.8 m2 * -- Conclusions -- * Normal LV chamber size with mild concentric LVH. * Normal LV systolic function, EF 60-65%. * No segmental left ventricular wall motion abnormalities are noted. * Grade II diastolic dysfunction. * Aortic valve sclerosis mild, without significant aortic valvular stenosis. * Mild left atrial enlargement. Procedure Details * A complete two-dimensional transthoracic echocardiogram was performed (2D, M-mode, Doppler and color flow Doppler). Left Ventricle * The left ventricle is normal in size. * There is mild concentric left ventricular hypertrophy. * Left ventricular systolic function is normal. * No segmental left ventricular wall motion abnormalities are noted. * Ejection Fraction = 60-65%. * The left ventricular wall motion is normal. Right Ventricle * The right ventricular cavity size is normal (basal dimension <4.2 cm in right ventricular apical 4-chamber view). * The right ventricular systolic function is normal as assessed by tricuspid annular plane systolic excursion (TAPSE) (normal >1.5 cm). Atria * The left atrium is mildly dilated. * Right atrial size is normal. * No ASD detected; PFO is not assessed. Mitral Valve * There is mild mitral annular calcification. * There is no mitral valve stenosis. * There is no mitral regurgitation noted. Tricuspid Valve * The tricuspid valve is normal in structure and function. Aortic Valve * The aortic valve is trileaflet. * Aortic valve sclerosis mild, without significant aortic valvular stenosis. * There is no significant aortic regurgitation. Pulmonic Valve * The pulmonary valve is not well seen, but the Doppler examination is normal without significant regurgitation or stenosis. Great Vessels * The aortic root is normal size. Pericardium/Pleural * There is no pericardial effusion. Left Ventricular Diastolic Function * Diastolic dysfunction, Grade II (pseudonormalization pattern). MMode 2D Measurements and Calculations IVSd 1.4 cm IVSs 1.7 cm LVIDd 4.0 cm LVIDs 2.6 cm LVPWd 1.2 cm LVPWs 1.4 cm IVS/LVPW 1.1 FS 33.4 % EDV(Teich) 68.6 ml ESV(Teich) 25.6 ml EF(Teich) 62.7 % EDV(cubed) 62.4 ml ESV(cubed) 18.4 ml EF(cubed) 70.4 % % IVS thick 25.5 % % LVPW thick 11.0 % LV mass(C)d 183.5 grams LV mass(C)dI 101.6 grams/m\S\2 LV mass(C)s 140.8 grams LV mass(C)sI 78.0 grams/m\S\2 SV(Teich) 43.0 ml SI(Teich) 23.8 ml/m\S\2 SV(cubed) 43.9 ml SI(cubed) 24.3 ml/m\S\2 Ao root diam 3.0 cm Ao root area 6.9 cm\S\2 LA dimension 3.7 cm LA/Ao 1.3 LVOT diam 1.8 cm LVOT area 2.5 cm\S\2 LVAd ap4 26.9 cm\S\2 LVLd ap4 7.0 cm EDV(MOD-sp4) 83.2 ml EDV(sp4-el) 88.0 ml LVAs ap4 12.5 cm\S\2 LVLs ap4 5.0 cm ESV(MOD-sp4) 25.8 ml ESV(sp4-el) 26.3 ml EF(MOD-sp4) 69.0 % EF(sp4-el) 70.2 % LVAd ap2 28.1 cm\S\2 LVLd ap2 7.5 cm EDV(MOD-sp2) 87.5 ml EDV(sp2-el) 89.2 ml LVAs ap2 18.0 cm\S\2 LVLs ap2 6.7 cm ESV(MOD-sp2) 41.3 ml ESV(sp2-el) 40.9 ml EF(MOD-sp2) 52.7 % EF(sp2-el) 54.2 % LVLd %diff 7.0 % EDV(MOD-bp) 88.0 ml LVLs %diff 25.0 % ESV(MOD-bp) 37.4 ml EF(MOD-bp) 57.5 % SV(MOD-sp4) 57.4 ml SI(MOD-sp4) 31.8 ml/m\S\2 SV(MOD-sp2) 46.1 ml SI(MOD-sp2) 25.5 ml/m\S\2 SV(MOD-bp) 50.6 ml SI(MOD-bp) 28.0 ml/m\S\2 SV(sp4-el) 61.8 ml SI(sp4-el) 34.2 ml/m\S\2 SV(sp2-el) 48.3 ml SI(sp2-el) 26.8 ml/m\S\2 Doppler Measurements and Calculations MV E max am[place] 118.1 cm/sec MV A max am[place] 66.3 cm/sec MV E/A 1.8 MV dec time 0.30 sec Ao V2 max 187.3 cm/sec Ao max PG 14.0 mmHg Ao max PG (full) 9.6 mmHg CATRACHITO(V,A) 1.4 cm\S\2 CATRACHITO(V,D) 1.4 cm\S\2 AI max am[place] 379.0 cm/sec AI max PG 57.5 mmHg AI dec slope 302.2 cm/sec\S\2 AI P1/2t 367.3 msec LV V1 max PG 4.5 mmHg LV V1 max 105.7 cm/sec PA V2 max 81.1 cm/sec PA max PG 2.6 mmHg TR max america 248.5 cm/sec
[2017-07-12 18:05] LABS: PTT PATIENT 55.4 SECONDS (21.0-31.0)
--- NOTE | 2017-07-12 18:31 | Progress Note ---
Internal Med Progress Note Date of Service: Jul 12, 2017. Provider Documentation: SUBJECTIVE: Denies of any feeling of palpitation, no chest pain or discomfort, no shortness of breath Monitor shows normal sinus rhythm Patient had approximate 5 seconds of pause Mentions of having transient feeling of dizzy spell No syncope OBJECTIVE: Vital Signs-as noted below Exam: General-very pleasant, no sign of distress ENT--sclera nonicteric Neck-no JVD Lungs-clear to auscultate Heart-regular S1-S2 Abdomen-soft nontender Extremities-no lower extremity edema Neuro-alert awake oriented 3, no focal neurological deficit Lab data as noted below. ASSESSMENT & PLAN: NEW ONSET OF SYMPTOMATIC RAPID A. FIB: Presented with symptom of palpitation Found to be in rapid A. fib, no prior diagnosis Converted to sinus rhythm after 5.1 second of symptomatic conversions pause Appreciate input from cardiology Patient is continued with metoprolol tartrate 25 mg twice daily Will be observed in telemetry for another 24 hours Calculate [id number] score 4 Started with Eliquis for stroke prophylaxis Resting echo Will need continued outpatient cardiology follow-up Possible outpatient cardiac stress testing HYPOKALEMIA: Corrected MILD ELEVATION OF TROPONIN Possible demand ischemia due to rapid A. fib Echo shows no new wall motion abnormality RECENT COPD EXACERBATION Respiratory status improved to approximate baseline Continue orals prednisone, nebulizer treatment CODE STATUS: Full code DVT PROPHYLAXIS Eliquis DISPOSITION Expected to be discharged home tomorrow will need cardiology follow-up as outpatient Vital Signs: Date Time Temp Pulse Resp B/P (MAP) Pulse Ox O2 Delivery O2 Flow Rate FiO2 07/13/17 04:00 36.7 60 16 117/72 (87) 94 Room Air 07/13/17 04:00 Room Air 07/13/17 02:01 68 16 94 Room Air 07/13/17 00:16 36.5 70 16 111/62 (78) 96 Room Air 07/13/17 00:01 Room Air 07/12/17 20:00 Room Air 07/12/17 19:55 72 18 95 Room Air 07/12/17 19:07 36.4 69 22 115/67 (83) 92 Room Air 07/12/17 16:00 Room Air 07/12/17 14:55 36.5 85 18 114/66 (82) 93 Room Air 07/12/17 14:23 65 18 95 Room Air 07/12/17 12:00 Room Air 07/12/17 10:00 36.5 60 20 114/69 (84) 92 Room Air 07/12/17 08:00 Room Air 07/12/17 07:42 36.7 72 19 98/61 (73) 98 Nasal Cannula 2.0 07/12/17 07:20 69 18 98 Nasal Cannula 2.0 Lab Results: Results Past 24 Hours Test 07/12/17 07:17 07/12/17 09:55 07/12/17 11:31 07/12/17 16:14 Range/Units Bedside Glucose 155 133 160 70-90 mg/dl Activated Partial Thromboplast Time 71.4 21.0-31.0 SECONDS Partial Thromboplastin Ratio 2.7 Potassium Level 4.7 3.5-5.1 mmol/L Test 07/12/17 17:07 07/12/17 20:23 07/13/17 04:44 Range/Units Activated Partial Thromboplast Time 55.4 21.0-31.0 SECONDS Partial Thromboplastin Ratio 2.1 Bedside Glucose 161 70-90 mg/dl
[2017-07-12] MEDS: RANITIDINE HCL 150 MG TAB PO SCH (20:46)
[2017-07-13] VITALS (7 sets, daily range): BP systolic 107–119; BP diastolic 62–72; PULSE 56–70; TEMP 36.3–36.7; O2SAT 94–100
[2017-07-13] MEDS: IPRATROPIUM BROMIDE NEB SOLN 0.02% 2.5 ML VIAL INH SCH ×2 (02:01→07:20)
[2017-07-13] MEDS: LEVALBUTEROL 1.25MG/0.5ML NEB INH SCH ×2 (02:01→07:20)
[2017-07-13] MEDS ORDERED: ~HEPARIN DRIP~STOP ORDER SCH (07:10)
[2017-07-13 07:33] LABS: PTT PATIENT 63.6 SECONDS (21.0-31.0)
[2017-07-13] MEDS: PANTOprazole SOD 40 MG TAB PO SCH (08:19)
[2017-07-13] MEDS: METOPROLOL TARTRATE 25 MG TAB PO SCH (08:19)
[2017-07-13] MEDS: DOXYCYCLINE HYCLATE 100 MG CAP PO SCH (08:19)
[2017-07-13] MEDS: INSULIN ASPART 100 UNITS/ML 3 ML PEN SC SCH ×2 (08:22→12:57)
[2017-07-13] MEDS ORDERED: INSULIN GLARGINE SOLOSTAR 100 UNITS/ML 3 ML PEN SC SCH (09:00)
[2017-07-13] MEDS ORDERED: APIXABAN 2.5 MG TAB PO SCH (09:00)
--- NOTE | 2017-07-13 09:32 | Cardiology Follow-Up ---
Subjective General Date of Service: Jul 13, 2017. Chief Complaint: PAF Pt evaluation today including: conversation w/ patient, physical exam, chart review, lab review, review of studies, review of inpatient medication list History of Present Illness Patient seen and examined. She states that she feels 100% better than when she came in to the hospital. Denies chest pain, palpitations, dyspnea, orthopnea, PND, or peripheral edema. Telemetry: Currently since at 63 bpm. One short episode of sinus bradycardia down to 40 bpm early this morning. No significant pauses. No further atrial fibrillation since conversion. July 12, 2017 TTE Interpretation Summary ([facility], Dr. Desai): Normal LV chamber size with mild concentric LVH. Normal LV systolic function, EF 60-65%. No segmental left ventricular wall motion abnormalities are noted. Grade II diastolic dysfunction. Aortic valve sclerosis mild, without significant aortic valvular stenosis. Mild left atrial enlargement. Allergies Coded Allergies: Adhesives (Verified Allergy, Mild, BLISTERS, 07/11/17) NO KNOWN DRUG ALLERGIES (Verified Allergy, Mild, ., 07/11/17) Social History Hx Tobacco Use In Past Year?: Yes Hx Alcohol Use - Type And Amou: No Hx Substance Use - Type And Am: No Problem List Medical Problems: (1) Atrial fibrillation with RVR Status: Acute (2) COPD exacerbation Status: Acute (3) Hypokalemia Status: Acute Physical Exam Vital Signs Last Vital Signs Documentation Date Time Temp Pulse Resp B/P (MAP) Pulse Ox O2 Delivery O2 Flow Rate FiO2 07/13/17 08:00 Room Air 07/13/17 07:22 36.3 56 18 119/69 (86) 100 07/12/17 07:42 2.0 Physical Exam Constitutional: Level of Distress: NAD Psychiatric: Mental Status: active & alert Orientation: to time, to place, to person Memory: recent memory normal, remote memory normal Head: normocephalic, atraumatic Neck: pertinent finding (Normal JVP) Lungs: Auscultation: no wheezing, no rales/crackles, no rhonchi, deminished air movement, decreased breath sounds Cardiovascular: Heart Auscultation: RRR, normal S1, normal S2, no rubs, II/ AYESHA Peripheral Pulses: Radial Pulse: normal on the left, normal on the right Dorsalis Pedis Pulse: normal on the left, normal on the right Abdomen: Bowel Sounds: normal Inspection & Palpation: soft Extremities: no cyanosis, no edema, no clubbing Neurologic: Cranial Nerves: grossly intact Assessment and Plan Assessment and Plan Admission with new onset symptomatic atrial fibrillation with a rapid ventricular response of unknown duration Status post spontaneous conversion back to sinus with ~5.1 second symptomatic conversion pause at 23:01:30 on 07/11/2017. [id number] Score of 4 points. Recent COPD exacerbation. Mild hypokalemia and intravascular volume depletion noted on presentation. RECOMMENDATIONS: Metoprolol tartrate 25 mg twice per day. Eliquis 5 mg twice a day Outpatient ambulatory electrocardiogram. Probable outpatient stress testing, RE: Atrial fibrillation. Elevated troponin ( no symptoms suggestive of an ACS) Outpatient Cardiology follow-up at the [facility] on July at 9:45 AM Cardiology attending: Pt seen and examined, agree with findings and assessment as per Price Rachel. No symptom free. Anxious for discharge. Unfortunately, NOAC is cost prohibitive, will start coumadin. Since she is in sinus, no need for bridging. Cont metoprolol. F/u as above. Laboratory Results Last 24 Hours Test 07/12/17 09:55 07/12/17 11:31 07/12/17 16:14 07/12/17 17:07 Activated Partial Thromboplast Time 71.4 SECONDS 55.4 SECONDS Partial Thromboplastin Ratio 2.7 2.1 Potassium Level 4.7 mmol/L Bedside Glucose 133 mg/dl 160 mg/dl Test 07/12/17 20:23 07/13/17 06:28 07/13/17 06:47 Bedside Glucose 161 mg/dl 102 mg/dl Activated Partial Thromboplast Time 63.6 SECONDS Partial Thromboplastin Ratio 2.4
[2017-07-13] MEDS ORDERED: ELQ25 PO (10:57)
[2017-07-13] MEDS ORDERED: LPR25 PO (10:57)
--- NOTE | 2017-07-13 10:59 | Discharge Instructions ---
Discharge Instructions Date of Service Jul 13, 2017. Admission Reason for Admission: Atrial Fibrillation With Rvr, Copd Exacerbation Discharge Discharge Diagnosis / Problem: Afib RVR /COPD exacerbation Discharge Goals Goal(s): Increase independence, Improve disease control, Diagnostic testing, Therapeutic intervention Activity Recommendations Activity Limitations: resume your previous activity . Instructions / Follow-Up Instructions / Follow-Up HOSPITAL FOLLOW UP 07/18/2017 @ 1:15 PM Linda Diallo PA-C Internal Medicine [facility] CARDIOLOGY FOLLOW UP :07/20/2017 at 9:45 AM Price De PA-C Cardiology [facility] YOU ARE DISCHARGED ON COUMADIN 5 MG TABLET DAILY A BLOOD THINNER MEDICATION TO PREVENT YOU HAVE BLOOD CLOT IN YOUR HEART CHAMBER AND CAUSING STROKE TAKE THE MEDICATION SAME TIME EVERY DAY DO NOT TAKE EXTRA DOSE OR SKIP ONE DOSE UNTIL INSTRUCTED BY YOUR DOCTOR OR COUMADIN CLINIC YOU WILL NEED TO HAVE BLOOD WORK CHECKED PERIODICALLY TO ASSESS THE BLOOD LEVEL ( PRO TIME /PT/INR ) AND COUMADIN DOSE ADJUSTMENT YOUR NEXT BLOOD DRAW IN ON Monday07/17/17 PLEASE HAVE THE BLOOD WORK DONE AT THE [facility] COUMADIN WILL MAKE YOU HIGH RISK FOR BLEEDING EVEN FOR SMALL CUTS -NEED TO PUT EXTRA PRESSURE FOR LONGER TIME TO STOP BLEEDING IF YOU NOTICE NOSE BLEEDING, DARK STOOL , BLOOD IN YOUR URINE -THOSE COULD BE SERIOUS BLEEDING SIDE EFFECTS OF COUMADIN DO NOT TAKE COUMADIN CALL YOUR PHYSICIAN CLINIC IMMEDIATELY IF IT IS AFTER HOUR , PLEASE COME TO NEAREST EMERGENCY CENTER Current Hospital Diet Patient's current hospital diet: AHA Diet (Heart Healthy), Diabetes Type 2 Diet Discharge Diet Recommended Diet: AHA Diet (Heart Healthy), Diabetes Type 2 Diet Pending Studies Studies pending at discharge: yes List of pending studies: CARDIAC STRESS TEST [facility] Laboratory Results Hemoglobin A1c Test 07/12/17 06:13 Range/Units Estimated Average Glucose 131 mg/dl Hemoglobin A1c 6.2 H 4.5-5.6 % Medical Emergencies . Who to Call and When: Medical Emergencies: If at any time you feel your situation is an emergency, please call 911 immediately. . Non-Emergent Contact Non-Emergency issues call your: Primary Care Provider . . "Provider Documentation" section prepared by Eileen Reno. .
[2017-07-13] MEDS ORDERED: DXY100 PO (11:15)
[2017-07-13] MEDS ORDERED: PRD20 PO (11:15)
--- NOTE | 2017-07-13 11:35 | Progress Note ---
Progress Note Date of Service Jul 13, 2017. Progress Note ATTENDING NOTE: Per cardiology patient is stable to be discharged home today With Lopressor 25 mg twice daily Anticoagulation with Eliquis 5 mg twice daily Patient's pharmacy: [facility] [place] Co-pay for Eliquis is more than $300 Similar co-pay with Xarelto Patient's Medicare part D prescription -has a high co-pay for NOAC's D/w Cardiology pt will be discharged on Coumadin only will be followed at the Coag clinic for Coumadin dosing and PT/INR monitoring
[2017-07-13] MEDS ORDERED: CMD5 PO (13:33)
--- NOTE | 2017-07-13 13:36 | Discharge Summary ---
Discharge Summary Date of Service Jul 13, 2017. Discharge Summary Admission Date: Jul 11, 2017 at 19:05 Discharge Date: Jul 13, 2017 Discharge Disposition: Home Principal Diagnosis: Afib RVR /COPD exacerbation Consultations: [facility] CARDIOLOGY Medication Reconciliation New Medications: Warfarin Sod (Coumadin) 5 Mg Tab 1 TAB PO DAILY for 30 Days, #30 TABS 3 Refills Doxycycline Hyclate (Doxycycline Hyclate) 100 Mg Cap 100 MG PO BID for 1 Day, #2 CAP Metoprolol Tartrate (Lopressor) 25 Mg Tab 25 MG PO BID for 30 Days, #60 TAB 2 Refills Prednisone (Prednisone) 20 Mg Tab 40 MG PO DAILY for 2 Days, #4 TAB Continued Medications: Omeprazole (Prilosec) 20 Mg Capcr 20 MG PO BID, CAP Ranitidine (Zantac) 300 Mg Tab 300 MG PO HS, TAB Referrals At Discharge Follow up Referrals: Tour Consultant Referral - 07/20/17 with Price De PA-C Admission Information HPI (per Admitting provider): Pt is 72 y/o F with PMH diverticulitis s/p sigmoid colectomy, GERD, hiatal hernia presented to ER with c/o SOB x 1 week. States a couple of weeks ago had sinus congestion/MITCHELL and was treated for sinusitis. States was feeling a little better then one week ago started with nausea, SOB, anterior chest tightness and heaviness and cough productive white sputum. Hasn't been eating or drinking well past week. Seen at urgent care and was started on prednisone x 6 days. Pt states finished on 07/08/17. Symptoms of SOB, chest tightness worse today prompting ER visit. Seen by PCP 05/08/17 for chest pain with cough and had negative PE CT scan at that time and pt states was feeling well after until the sinus symptoms started. Pt denies previous dx COPD in past. Is 1ppd smoker x 30 years. Reports grandson had URI symptoms recently also. Denies fever/chills, diaphoresis, V/D/C, dizziness, syncope, vision changes, neck pain, orthopnea, palpitations, choking, abdominal pain, paresthesias, weakness, extremity weakness, extremity edema, rashes, urinary symptoms, or night sweats. In ER found to be in a-fib. HR in reported in 150's. Also reported significant wheezing. Was given Cardizem 20mg, 500ml bolus NSS, duoneb x 2 and additional NSS 500ml bolus, zithromax 500mg po. HR down to 104-118. Physical Exam (per Admitting): General Appearance: WD/WN, no apparent distress Head: normocephalic, atraumatic Eyes: normal inspection, sclerae normal ENT: hearing grossly normal, pharynx normal, + pertinent finding (mucous membranes dry) Neck: supple, trachea midline Respiratory/Chest: no respiratory distress, no accessory muscle use, + decreased breath sounds, + wheezing (scattered throughout) Cardiovascular: no murmur, + tachycardia, + irregularly irregular Abdomen/GI: normal bowel sounds, non tender, soft Extremities/Musculoskelatal: normal capillary refill, no pedal edema, non- tender Neurologic/Psych: alert, normal mood/affect, oriented x 3 Skin: normal color, warm/dry Hospital Course NEW ONSET OF SYMPTOMATIC RAPID A. FIB: Presented with symptom of palpitation Found to be in rapid A. fib, no prior diagnosis Converted to sinus rhythm after 5.1 second of symptomatic conversions pause Appreciate input from cardiology Patient is continued with metoprolol tartrate 25 mg twice daily Will be observed in telemetry for another 24 hours Calculate [id number] score 4 does not have adequate insurance coverage for NOAC's will be discharged with Coumadin stroke prophylaxis need to follow up with coag clinic as out pt Resting echo Will need continued outpatient cardiology follow-up Possible outpatient cardiac stress testing HYPOKALEMIA: Corrected MILD ELEVATION OF TROPONIN Possible demand ischemia due to rapid A. fib Echo shows no new wall motion abnormality RECENT COPD EXACERBATION Respiratory status improved to approximate baseline Continue orals prednisone, nebulizer treatment CODE STATUS: Full code DVT PROPHYLAXIS Coumadin DISPOSITION stable to be discharged home today scheduled for cardiology follow-up as outpatient Total time spent on discharge = 35 MINS This includes examination of the patient, discharge planning, medication reconciliation, and communication with other providers. Discharge Instructions Discharge Instructions Date of Service Jul 13, 2017. Admission Reason for Admission: Atrial Fibrillation With Rvr, Copd Exacerbation Discharge Discharge Diagnosis / Problem: Afib RVR /COPD exacerbation Discharge Goals Goal(s): Increase independence, Improve disease control, Diagnostic testing, Therapeutic intervention Activity Recommendations Activity Limitations: resume your previous activity . Instructions / Follow-Up Instructions / Follow-Up HOSPITAL FOLLOW UP 07/18/2017 @ 1:15 PM Linda Diallo PA-C Internal Medicine [facility] CARDIOLOGY FOLLOW UP :07/20/2017 at 9:45 AM Price De PA-C Cardiology [facility] YOU ARE DISCHARGED ON COUMADIN 5 MG TABLET DAILY A BLOOD THINNER MEDICATION TO PREVENT YOU HAVE BLOOD CLOT IN YOUR HEART CHAMBER AND CAUSING STROKE TAKE THE MEDICATION SAME TIME EVERY DAY DO NOT TAKE EXTRA DOSE OR SKIP ONE DOSE UNTIL INSTRUCTED BY YOUR DOCTOR OR COUMADIN CLINIC YOU WILL NEED TO HAVE BLOOD WORK CHECKED PERIODICALLY TO ASSESS THE BLOOD LEVEL ( PRO TIME /PT/INR ) AND COUMADIN DOSE ADJUSTMENT YOUR NEXT BLOOD DRAW IN ON Monday07/17/17 PLEASE HAVE THE BLOOD WORK DONE AT THE [facility] COUMADIN WILL MAKE YOU HIGH RISK FOR BLEEDING EVEN FOR SMALL CUTS -NEED TO PUT EXTRA PRESSURE FOR LONGER TIME TO STOP BLEEDING IF YOU NOTICE NOSE BLEEDING, DARK STOOL , BLOOD IN YOUR URINE -THOSE COULD BE SERIOUS BLEEDING SIDE EFFECTS OF COUMADIN DO NOT TAKE COUMADIN CALL YOUR PHYSICIAN CLINIC IMMEDIATELY IF IT IS AFTER HOUR , PLEASE COME TO NEAREST EMERGENCY CENTER Current Hospital Diet Patient's current hospital diet: AHA Diet (Heart Healthy), Diabetes Type 2 Diet Discharge Diet Recommended Diet: AHA Diet (Heart Healthy), Diabetes Type 2 Diet Pending Studies Studies pending at discharge: yes List of pending studies: CARDIAC STRESS TEST [facility] Laboratory Results Hemoglobin A1c Test 07/12/17 06:13 Range/Units Estimated Average Glucose 131 mg/dl Hemoglobin A1c 6.2 H 4.5-5.6 % Medical Emergencies . Who to Call and When: Medical Emergencies: If at any time you feel your situation is an emergency, please call 911 immediately. . Non-Emergent Contact Non-Emergency issues call your: Primary Care Provider . . "Provider Documentation" section prepared by Eileen Reno. .
[2017-07-13] MEDS ORDERED: WARFARIN SOD 10 MG TAB PO ONE (14:00)
== END 2017-07-13 15:00 | disposition home or self-care (01) | DRG 191 ==
LOC: C.EDB 16:10 → C.2T 19:05 → CANRESERV 19:33 → ENRESERV 19:33
PROVIDERS: ADMIT Internal Medicine; ATTEND Hospitalist
DX: J44.1 Chronic obstructive pulmonary disease with (acute) exacerbation (principal); I24.8 Other forms of acute ischemic heart disease; I48.91 Unspecified atrial fibrillation; R00.1 Bradycardia, unspecified; E86.0 Dehydration; E87.6 Hypokalemia; R73.9 Hyperglycemia, unspecified; D72.829 Elevated white blood cell count, unspecified; T38.0X5A Adverse effect of glucocorticoids and synthetic analogues, initial encounter; K21.9 Gastro-esophageal reflux disease without esophagitis; F17.210 Nicotine dependence, cigarettes, uncomplicated; Z66 Do not resuscitate; Z71.6 Tobacco abuse counseling; Z82.49 Family history of ischemic heart disease and other diseases of the circulatory system; Z79.899 Other long term (current) drug therapy; Z91.048 Other nonmedicinal substance allergy status

== ENCOUNTER 2017-08-08 01:19 | Emergency (ER) | payer OTHER ==
[~2017-08-08] VITALS: Ht 157.5 cm; Wt 83.6 kg
[~2017-08-08 01:19] MED LIST changes: -CIPR-255 PO; +CMD5 PO; +DXY100 PO; +LPR25 PO; -METR-163 PO; +PRD20 PO
[2017-08-08] MEDS ORDERED: ASPIRIN 81 MG CHEW PO STA (01:23)
[2017-08-08 01:29] VITALS: TEMP 36.6; Ht 157.5 cm; Wt 83.6 kg
[2017-08-08 01:34] VITALS: O2SAT 98
[2017-08-08 01:44] LABS: BASO % 0.2 %; BASO ABS # 0.03 K/uL (0-0.2); EOS % 1.6 %; EOS ABS # 0.21 K/uL (0-0.5); HEMATOCRIT 39.9 % (37-47); HEMOGLOBIN 13.2 g/dL (12.0-16.0); IG# 0.05 K/uL (0.00-0.02); LYMPH % 31.6 %; LYMPH ABS # 4.25 K/uL (1.2-3.4); MEAN CELL VOLUME 88.3 fL (80-100); MEAN CORPUSCULAR HEMOGLOBIN 29.2 pg (25-34); MEAN CORPUSCULAR HGB CONC 33.1 g/dl (32-36); MEAN PLATELET VOLUME 10.5 fL (7.4-10.4); MONO % 6.6 %; MONO ABS # 0.88 K/uL (0.11-0.59); NEUT % 59.6 %; NEUT ABS # 8.01 K/uL (1.4-6.5); PLATELET COUNT 407 K/uL (130-400); RED CELL DISTRIBUTION WIDTH CV 14.9 % (11.5-14.5); RED CELL DISTRIBUTION WIDTH SD 47.7 fL (36.4-46.3); WHITE BLOOD COUNT 13.43 K/uL (4.8-10.8)
[2017-08-08] MEDS ORDERED: WARF2TAB8 PO ×2 (01:49→01:51)
--- NOTE | 2017-08-08 01:50 | EMERGENCY ROOM VISIT NOTE ---
History Report prepared by Jeri: Yasmin Staton Under the Supervision of: Dr. Montserrat Monzon M.D. First contact with patient: 01:20 Chief Complaint: CARDIAC ASSESSMENT Stated Complaint: CHEST PAIN History of Present Illness The patient is a 72 year old female who presents to the Emergency Room brought in by EMS with complaints of resolved chest pain since 2099 yesterday. She states that she was sleeping on her couch and woke up with fluttering chest pain. She notes that she went into atrial fibrillation and is very familiar with the sensation. She denies any shortness of breath or sweating. She states that she took her medications after she developed the chest pain. She notes that she recorded her heart rate was 150 at 2300. She reports feeling dizzy. She notes the sensation in her chest went away before the ambulance arrived. She states EMS administered three baby Aspirin, though did not provide NTG. She denies any current chest pain or fluttering sensation. She notes the chest pain did not radiate. She notes that she was recently given Lasix for persistent ankle swelling that she had over the weekend, though reports the swelling went away. She notes that the swelling was new for her. She denies any new swelling. She is a current smoker of 1 ppd. Source of History: patient Onset: 2099 yesterday Position: chest Quality: other (fluttering) Timing: resolved Associated Symptoms: + LOC, + fevers, + chills, + headache, + sorethroat, + cough, + neck pain, + chest pain, + nausea, + vomiting, + abdominal pain, + back pain, + melena, + hematochezia, + diarrhea, + urinary symptoms, + fatigue, + weakness, + numbness, + rash, + lymphadenopathy, No diaphoresis (sweating), No SOB Note: Denies new swelling. Notes dizziness. Review of Systems See HPI for pertinent positives & negatives. A total of 10 systems reviewed and were otherwise negative. Past Medical & Surgical Medical Problems: (1) Abdominal aneurysm (2) Carpal tunnel syndrome (3) Colon polyp (4) Colonic diverticular abscess (5) Diverticulitis (6) Diverticulosis (7) Encounter for smoking cessation counseling (8) GERD (gastroesophageal reflux disease) (9) Sciatica (10) Tobacco abuse Surgical Problems: (1) H/O tubal ligation (2) Hx of colectomy Family History Diabetes mellitus FATHER SISTER FH: colon cancer MOTHER FH: heart disease FATHER SISTER Social History Smoking Status: Current Every Day Smoker Drug Use: none Marital Status: single Housing Status: lives with family Occupation Status: unemployed Current/Historical Medications Scheduled Metoprolol Succinate (Metoprolol Succinate ER), 12.5 MG PO DAILY Omeprazole (Prilosec), 20 MG PO BID Ranitidine (Zantac), 300 MG PO HS Warfarin Sod (Jantoven), 2 MG PO 5XWK Warfarin Sod (Jantoven), 1 MG PO 2XWK Allergies Coded Allergies: Adhesives (Verified Allergy, Mild, BLISTERS, 07/11/17) NO KNOWN DRUG ALLERGIES (Verified Allergy, Mild, ., 07/11/17) Physical Exam Vital Signs Date Time Temp Pulse Resp B/P (MAP) Pulse Ox O2 Delivery O2 Flow Rate FiO2 08/08/17 07:18 16 125/74 08/08/17 07:10 59 125/74 94 Room Air 08/08/17 05:58 61 18 120/64 94 Room Air 08/08/17 04:46 61 18 143/64 96 Room Air 08/08/17 03:20 57 18 117/66 94 Room Air 08/08/17 02:19 63 18 99/55 96 Room Air 08/08/17 01:39 63 08/08/17 01:34 98 Room Air 08/08/17 01:29 98 Room Air 08/08/17 01:29 36.6 98 20 120/63 98 Room Air Physical Exam Vital signs reviewed. General: Well-appearing, in no significant distress. HEENT: No scleral icterus, PERRLA, neck supple. Atraumatic. Edentulous. Cardiovascular: Regular rate and rhythm, no extra sounds. Pulmonary: Coarse breath sounds bilaterally, normal work of breathing. Abdomen: Soft, nontender, nondistended, positive bowel sounds. Musculoskeletal: Atraumatic, no peripheral edema. Neurologic: Patient awake alert and oriented x 3, full strength in all 4 extremities. Cranial nerves 2 through 12 grossly intact. Skin: Warm, dry, no rash Medical Decision & Procedures ER Provider Diagnostic Interpretation: Radiology results as stated below per my review and interpretation: CHEST XR: Slight interstitial prominence of right lower lung field. No focal consolidation. No failure. Normal mediastinal silhouette. Laboratory Results 08/08/17 00:54 Red Blood Count 4.52, Mean Corpuscular Volume 88.3, Mean Corpuscular Hemoglobin 29.2, Mean Corpuscular Hemoglobin Concent 33.1, Mean Platelet Volume 10.5, Neutrophils (%) (Auto) 59.6, Lymphocytes (%) (Auto) 31.6, Monocytes (%) (Auto) 6.6, Eosinophils (%) (Auto) 1.6, Basophils (%) (Auto) 0.2, Neutrophils # (Auto) 8.01, Lymphocytes # (Auto) 4.25, Monocytes # (Auto) 0.88, Eosinophils # (Auto) 0.21, Basophils # (Auto) 0.03 08/08/17 00:54 Test 08/08/17 00:54 08/08/17 03:15 White Blood Count 13.43 K/uL (4.8-10.8) Red Blood Count 4.52 M/uL (4.2-5.4) Hemoglobin 13.2 g/dL (12.0-16.0) Hematocrit 39.9 % (37-47) Mean Corpuscular Volume 88.3 fL (80-100) Mean Corpuscular Hemoglobin 29.2 pg (25-34) Mean Corpuscular Hemoglobin Concent 33.1 g/dl (32-36) Platelet Count 407 K/uL (130-400) Mean Platelet Volume 10.5 fL (7.4-10.4) Neutrophils (%) (Auto) 59.6 % Lymphocytes (%) (Auto) 31.6 % Monocytes (%) (Auto) 6.6 % Eosinophils (%) (Auto) 1.6 % Basophils (%) (Auto) 0.2 % Neutrophils # (Auto) 8.01 K/uL (1.4-6.5) Lymphocytes # (Auto) 4.25 K/uL (1.2-3.4) Monocytes # (Auto) 0.88 K/uL (0.11-0.59) Eosinophils # (Auto) 0.21 K/uL (0-0.5) Basophils # (Auto) 0.03 K/uL (0-0.2) RDW Standard Deviation 47.7 fL (36.4-46.3) RDW Coefficient of Variation 14.9 % (11.5-14.5) Immature Granulocyte % (Auto) 0.4 % Immature Granulocyte # (Auto) 0.05 K/uL (0.00-0.02) Anion Gap 8.0 mmol/L (3-11) Est Creatinine Clear Calc Drug Dose 65.6 ml/min Estimated GFR () 86.6 Estimated GFR (Non- 74.7 BUN/Creatinine Ratio 11.4 (10-20) Calcium Level 8.7 mg/dl (8.5-10.1) Total Bilirubin 0.3 mg/dl (0.2-1) Direct Bilirubin < 0.1 mg/dl (0-0.2) Aspartate Amino Transf (AST/SGOT) 15 U/L (15-37) Alanine Aminotransferase (ALT/SGPT) 14 U/L (12-78) Alkaline Phosphatase 161 U/L (45-117) Total Protein 7.2 gm/dl (6.4-8.2) Albumin 3.0 gm/dl (3.4-5.0) Troponin I < 0.015 ng/ml (0-0.045) Laboratory results per my review. ECG Per My Interpretation Indication: chest pain Rate (beats per minute): 66 Rhythm: normal sinus Findings: no acute ischemic change, no ectopy ED Course 0134: Past medical records reviewed. The patient was evaluated in room B7. A complete history and physical examination was performed. 0123: Ordered Aspirin 324 mg PO 0610: I reassessed the patient at this time. She is feeling better and resting comfortably. She is calling her niece to take her home. I discussed the results and treatment plan with the patient. I answered all pertaining questions that she had. She expressed understanding and verbalized agreement. The patient will be discharged home. 0725: I reassessed the patient at this time. She is awaiting for her niece to arrive. Medical Decision Differential diagnoses includes acute coronary syndrome, pulmonary embolus, aortic dissection, musculoskeletal pain, pneumonia, pleural effusion, pneumothorax, gastritis, peptic ulcer disease. This pt was evaluated and appeared to be in no distress. IV access was obtained and lab work was drawn. Pt was given aspirin 324 mg po. CXR was obtained and is clear to my interpretation. Patient's laboratory work is fairly unrevealing. Troponin is negative 2. I suspect the patient had an episode of atrial fibrillation with RVR that broke after her p.o. metoprolol. Patient is anticoagulated and has had no further recurrence. She will be discharged to follow-up with her PCP and waiter/waitress. The patient will return to the ER for worsening symptoms or any medical concerns. Medication Reconcilliation Current Medication List: was personally reviewed by me Blood Pressure Screening Patient's blood pressure: Normal blood pressure Impression Primary Impression: Chest pain Additional Impressions: Atrial fibrillation Heart palpitations Scribe Attestation The scribe's documentation has been prepared under my direction and personally reviewed by me in its entirety. I confirm that the note above accurately reflects all work, treatment, procedures, and medical decision making performed by me. Departure Information Dispostion Home / Self-Care Referrals Venu Olivera D.OYimi (PCP) Forms IMPORTANT VISIT INFORMATION Patient Instructions My [facility] Additional Instructions Diagnosis: Chest pain, atrial fibrillation, heart palpitations Please continue your medications as prescribed. Follow-up with your waiter/waitress and primary care physician this week if symptoms continue. Return to the emergency department for worsening of symptoms or any medical concerns. Problem Qualifiers
[2017-08-08] MEDS ORDERED: TPRSR/25 PO (01:53)
[2017-08-08 02:03] LABS: ALT/SGPT 14 U/L (12-78); AST/SGOT 15 U/L (15-37); BLOOD UREA NITROGEN 9 mg/dl (7-18); CALCIUM 8.7 mg/dl (8.5-10.1); CARBON DIOXIDE 25 mmol/L (21-32); GLUCOSE 95 mg/dl (70-99); POTASSIUM 3.7 mmol/L (3.5-5.1); SODIUM 141 mmol/L (136-145)
[2017-08-08 02:07] LABS: ALKALINE PHOSPHATASE 161 U/L (45-117); TOTAL PROTEIN 7.2 gm/dl (6.4-8.2)
--- NOTE | 2017-08-08 06:30 | DIAGNOSTIC IMAGING REPORT ---
CHEST ONE VIEW PORTABLE CLINICAL HISTORY: Chest pain. Atrial fibrillation. COMPARISON STUDY: Chest radiograph July 11, 2017. FINDINGS: Lung volumes are normal. Lungs are clear. No pneumothorax or pleural effusion is noted. There is no evidence for pulmonary edema. Cardiac size is normal. Mediastinal contours are normal. The appearance of the chest is unchanged. IMPRESSION: No acute cardiopulmonary findings. Electronically signed by: Sunil Kramer M.D. 08/08/2017 6:28 AM Dictated Date/Time: 08/08/2017 6:27 AM
[2017-08-08 07:10] VITALS: PULSE 59; O2SAT 94
[2017-08-08 07:18] VITALS: BP 125/74
== END 2017-08-08 07:19 | disposition home or self-care (01) ==
LOC: C.EDB 01:19 → EDBD 01:19 → C.EDB 07:19
DX: I48.91 Unspecified atrial fibrillation (principal); K08.109 Complete loss of teeth, unspecified cause, unspecified class; F17.200 Nicotine dependence, unspecified, uncomplicated; K21.9 Gastro-esophageal reflux disease without esophagitis; Z79.01 Long term (current) use of anticoagulants; Z91.048 Other nonmedicinal substance allergy status

== ENCOUNTER 2017-11-28 18:44 | Emergency (ER) | payer OTHER ==
[~2017-11-28] VITALS: Ht 157.5 cm; Wt 82.4 kg
[~2017-11-28 18:44] MED LIST changes: +AMIO200T4 PO; -CMD5 PO; -DXY100 PO; +FURO-85 PO; +LISI-725 PO; -LPR25 PO; +OXYC-57 PO; -PRD20 PO; +TPRSR/25 PO; +WARF2TAB8 PO; +albuterol inhaler PO
[2017-11-28 18:51] VITALS: TEMP 36.6; Ht 157.5 cm; Wt 82.4 kg
[2017-11-28 19:18] LABS: BASO % 0.6 %; BASO ABS # 0.06 K/uL (0-0.2); EOS % 4.7 %; EOS ABS # 0.48 K/uL (0-0.5); HEMATOCRIT 46.4 % (37-47); HEMOGLOBIN 15.5 g/dL (12.0-16.0); IG# 0.03 K/uL (0.00-0.02); LYMPH ABS # 2.75 K/uL (1.2-3.4); MEAN CELL VOLUME 87.4 fL (80-100); MEAN CORPUSCULAR HEMOGLOBIN 29.2 pg (25-34); MEAN CORPUSCULAR HGB CONC 33.4 g/dl (32-36); MEAN PLATELET VOLUME 10.2 fL (7.4-10.4); MONO % 10.4 %; MONO ABS # 1.06 K/uL (0.11-0.59); NEUT ABS # 5.82 K/uL (1.4-6.5); PLATELET COUNT 284 K/uL (130-400); RED CELL DISTRIBUTION WIDTH CV 15.3 % (11.5-14.5); RED CELL DISTRIBUTION WIDTH SD 48.9 fL (36.4-46.3)
--- NOTE | 2017-11-28 19:18 | EMERGENCY ROOM VISIT NOTE ---
History Report prepared by Jeri: Noemy Sher Under the Supervision of: Dr. Sam Almanzar M.D. First contact with patient: 18:59 Chief Complaint: ABNORMAL LABS Stated Complaint: POTASSIUM TOO HIGH History of Present Illness The patient is a 72 year old female who presents to the Emergency Room with a referral from [facility] with high potassium levels prior to arrival. The patient states that she was getting outpatient blood work done because of a pacemaker she got put in about two months ago. She states that she currently has an infection because of the pacemaker. The patient states that she was on 500 mg of Bactrim but is now on 800 mg to get rid of the infection. She denies any recent fevers but states that the area around the pacemaker is very painful. The patient denies any other pain, but states that she has had nausea, headaches, and her nose has been running constantly for the past few weeks. The patient states that she has been eating and drinking normally. She states that she takes lisinopril and metoprolol daily. Source of History: patient Onset: prior to arrival Position: other (generalized) Quality: other (high potassium levels) Associated Symptoms: + headache, + nausea Review of Systems See HPI for pertinent positives and negatives. A total of ten systems were reviewed and were otherwise negative. Past Medical & Surgical Medical Problems: (1) Abdominal aneurysm (2) Afib (3) Carpal tunnel syndrome (4) Colon polyp (5) Colonic diverticular abscess (6) COPD (chronic obstructive pulmonary disease) (7) Diverticulitis (8) Diverticulosis (9) Encounter for smoking cessation counseling (10) GERD (gastroesophageal reflux disease) (11) Hypertension (12) Sciatica (13) Tachy-silvestre syndrome (14) Tobacco abuse Surgical Problems: (1) H/O tubal ligation (2) Hx of colectomy Family History Diabetes mellitus FATHER SISTER FH: colon cancer MOTHER FH: heart disease FATHER SISTER Social History Smoking Status: Current Every Day Smoker Drug Use: none Marital Status: single Housing Status: lives with family Occupation Status: unemployed Current/Historical Medications Scheduled Amlodipine Besylate (Amlodipine Besylate), 5 MG PO DAILY Lisinopril (Zestril), 20 MG PO DAILY Metoprolol Succinate (Metoprolol Succinate ER), 25 MG PO DAILY Omeprazole (Prilosec), 40 MG PO DAILY Ranitidine (Zantac), 300 MG PO HS Sulfa/Trimethoprim (Bactrim Ds 800MG/160MG), 1 TAB PO BID Warfarin Sod (Jantoven), 1 MG PO DAILY Allergies Coded Allergies: Adhesives (Verified Allergy, Mild, BLISTERS, 10/04/17) NO KNOWN DRUG ALLERGIES (Verified Allergy, Mild, ., 10/04/17) Physical Exam Vital Signs Date Time Temp Pulse Resp B/P (MAP) Pulse Ox O2 Delivery O2 Flow Rate FiO2 11/28/17 20:28 63 16 108/62 98 Room Air 11/28/17 19:26 95 Room Air 11/28/17 19:26 96 Room Air 11/28/17 19:26 60 22 102/51 95 Room Air 11/28/17 19:07 73 11/28/17 18:51 36.6 69 18 97/63 97 Room Air Physical Exam GENERAL: Awake, alert, well-appearing, in no distress HENT: Normocephalic, atraumatic. Oropharynx unremarkable. EYES: Normal conjunctiva. Sclera non-icteric. NECK: Supple. No nuchal rigidity. RESPIRATORY: Clear to auscultation. No wheezes. Normal respiratory effort. CARDIAC: Normal rate. Normal rhythm. Extremities warm and well perfused. Right upper chest wall pacemaker wound with slight erythema, no discharge, mild tenderness. GI: Soft, non-distended. No tenderness to palpation. No rebound or guarding. RECTAL: Deferred. MUSCULOSKELETAL: Atraumatic. Chest examination reveals no tenderness. LOWER EXTREMITIES: Calves are equal size bilaterally and non-tender. No edema NEURO: Normal sensorium. No sensory or motor deficits noted. No facial droop. SKIN: Warm and dry. No rash or jaundice noted. Medical Decision & Procedures ER Provider Diagnostic Interpretation: Radiology results as stated below per my review and radiologist interpretation: SINGLE VIEW CHEST CLINICAL HISTORY: Atypical chest pain. FINDINGS: An AP, portable, upright chest radiograph is compared to study dated 10/05/2017 and correlated with chest CT dated 09/27/2017. The examination is degraded by portable technique and patient rotation. A 2-lead cardiac pacemaker is unchanged in position. The heart is top normal for projection and there is atherosclerotic calcification of the thoracic aorta. The pulmonary vasculature is noncongested. Emphysema and chronic interstitial thickening are similar to previous. There is mild bibasilar atelectasis. The lungs and pleural spaces are otherwise clear. No pneumothorax is seen. The skeletal structures are osteopenic. The bony thorax is grossly intact. IMPRESSION: No acute cardiopulmonary abnormality. Electronically signed by: Mayank Calvin M.D. 11/28/2017 7:35 PM Dictated Date/Time: 11/28/2017 7:33 PM Laboratory Results 11/28/17 19:07 Red Blood Count 5.31, Mean Corpuscular Volume 87.4, Mean Corpuscular Hemoglobin 29.2, Mean Corpuscular Hemoglobin Concent 33.4, Mean Platelet Volume 10.2, Neutrophils (%) (Auto) 57.0, Lymphocytes (%) (Auto) 27.0, Monocytes (%) (Auto) 10.4, Eosinophils (%) (Auto) 4.7, Basophils (%) (Auto) 0.6, Neutrophils # (Auto ) 5.82, Lymphocytes # (Auto) 2.75, Monocytes # (Auto) 1.06, Eosinophils # (Auto ) 0.48, Basophils # (Auto) 0.06 11/28/17 19:07 Test 11/28/17 19:07 White Blood Count 10.20 K/uL (4.8-10.8) Red Blood Count 5.31 M/uL (4.2-5.4) Hemoglobin 15.5 g/dL (12.0-16.0) Hematocrit 46.4 % (37-47) Mean Corpuscular Volume 87.4 fL (80-100) Mean Corpuscular Hemoglobin 29.2 pg (25-34) Mean Corpuscular Hemoglobin Concent 33.4 g/dl (32-36) Platelet Count 284 K/uL (130-400) Mean Platelet Volume 10.2 fL (7.4-10.4) Neutrophils (%) (Auto) 57.0 % Lymphocytes (%) (Auto) 27.0 % Monocytes (%) (Auto) 10.4 % Eosinophils (%) (Auto) 4.7 % Basophils (%) (Auto) 0.6 % Neutrophils # (Auto) 5.82 K/uL (1.4-6.5) Lymphocytes # (Auto) 2.75 K/uL (1.2-3.4) Monocytes # (Auto) 1.06 K/uL (0.11-0.59) Eosinophils # (Auto) 0.48 K/uL (0-0.5) Basophils # (Auto) 0.06 K/uL (0-0.2) RDW Standard Deviation 48.9 fL (36.4-46.3) RDW Coefficient of Variation 15.3 % (11.5-14.5) Immature Granulocyte % (Auto) 0.3 % Immature Granulocyte # (Auto) 0.03 K/uL (0.00-0.02) Anion Gap 10.0 mmol/L (3-11) Est Creatinine Clear Calc Drug Dose 37.7 ml/min Estimated GFR () 44.8 Estimated GFR (Non- 38.6 BUN/Creatinine Ratio 16.3 (10-20) Calcium Level 9.1 mg/dl (8.5-10.1) Magnesium Level 2.2 mg/dl (1.8-2.4) Total Bilirubin 0.3 mg/dl (0.2-1) Direct Bilirubin < 0.1 mg/dl (0-0.2) Aspartate Amino Transf (AST/SGOT) 20 U/L (15-37) Alanine Aminotransferase (ALT/SGPT) 28 U/L (12-78) Alkaline Phosphatase 211 U/L (45-117) Troponin I < 0.015 ng/ml (0-0.045) Total Protein 7.8 gm/dl (6.4-8.2) Albumin 3.9 gm/dl (3.4-5.0) Lipase 433 U/L (73-393) Laboratory results reviewed by me Medications Administered Medications (Trade) Dose Ordered Sig/Nataliya Route Start Time Stop Time Status Last Admin Dose Admin Sodium Chloride 500 ml @ 999 mls/hr Q31M ONCE IV 11/28/17 19:54 11/28/17 20:24 DC 11/28/17 19:58 999 MLS/HR ECG Per My Interpretation Indication: other (electrolyte abnormality ) Rate (beats per minute): 84 Rhythm: other (atrially paced ) Findings: other (normal QRS and QT interval, no peaked T waves, no ST elevation ) Comparison ECG Date: 10/04/2017 Change: no significant change ED Course 1904: The patient was evaluated in room C9. A complete history and physical exam was performed. 1953: Ordered Sodium Chloride 500 ml @ 999 mls/hr. I reevaluated the patient. Discussed results and discharge instructions: She verbalized understanding and agreement. The patient is ready for discharge. Medical Decision Possible differential diagnoses include: Hyperkalemia, SANDRA, lab abnormality, lab error, infection, others were also considered. Patient presents with report of elevated potassium of 6.3 and outpatient labs today. States that she is recovering from the pacemaker placement several months ago with a pacemaker pocket infection. Currently on Bactrim. Additionally on amlodipine and lisinopril. States little bit queasy earlier and mild headache with no other symptoms. Denies syncope. Denies decreased oral intake. Pacemaker infection reported improving and no signs of sepsis. EKG without acute signs of hyperkalemia. Likely lisinopril and bactrim interaction causing hyper K. Repeat labs here do show very mild hyperkalemia 5.3. Evidence of slight SANDRA with creatinine 1.3. Patient given some fluid rehydration. Had extensive discussion with her about discharge home versus observation. She wished to go home. Feel this is reasonable. Discussed with the importance of following up in the next 1-2 days with your regular doctor for repeat blood testing and to discuss her medications. She already has cardiology follow-up within the next week but again this needs to be take place first. Discussed return criteria. Medication Reconcilliation Current Medication List: was personally reviewed by me Blood Pressure Screening Patient's blood pressure: Normal blood pressure Impression Primary Impression: Hyperkalemia Additional Impression: SANDRA (acute kidney injury) Scribe Attestation The scribe's documentation has been prepared under my direction and personally reviewed by me in its entirety. I confirm that the note above accurately reflects all work, treatment, procedures, and medical decision making performed by me. Departure Information Dispostion Home / Self-Care Referrals Venu Olivera D.O. (PCP) Forms HOME CARE DOCUMENTATION FORM, IMPORTANT VISIT INFORMATION, WORK / SCHOOL INSTRUCTIONS Patient Instructions My [facility] [employer] Additional Instructions Please maintain good hydration. Call your doctor tomorrow to discuss repeat kidney and potassium level testing along with discussing your blood pressure medicine and antibiotic possibly interacting. If at any time you have concerns or new or concerning symptoms please return here for reevaluation sooner. Problem Qualifiers
[2017-11-28 19:26] VITALS: O2SAT 96
--- NOTE | 2017-11-28 19:36 | DIAGNOSTIC IMAGING REPORT ---
SINGLE VIEW CHEST CLINICAL HISTORY: Atypical chest pain. FINDINGS: An AP, portable, upright chest radiograph is compared to study dated 10/05/2017 and correlated with chest CT dated 09/27/2017. The examination is degraded by portable technique and patient rotation. A 2-lead cardiac pacemaker is unchanged in position. The heart is top normal for projection and there is atherosclerotic calcification of the thoracic aorta. The pulmonary vasculature is noncongested. Emphysema and chronic interstitial thickening are similar to previous. There is mild bibasilar atelectasis. The lungs and pleural spaces are otherwise clear. No pneumothorax is seen. The skeletal structures are osteopenic. The bony thorax is grossly intact. IMPRESSION: No acute cardiopulmonary abnormality. Electronically signed by: Mayank Calvin M.D. 11/28/2017 7:35 PM Dictated Date/Time: 11/28/2017 7:33 PM
[2017-11-28 19:51] LABS: ALBUMIN 3.9 gm/dl (3.4-5.0); ALKALINE PHOSPHATASE 211 U/L (45-117); ALT/SGPT 28 U/L (12-78); AST/SGOT 20 U/L (15-37); BLOOD UREA NITROGEN 23 mg/dl (7-18); CALCIUM 9.1 mg/dl (8.5-10.1); CARBON DIOXIDE 20 mmol/L (21-32); CREATININE 1.38 mg/dl (0.60-1.20); GLUCOSE 82 mg/dl (70-99); LIPASE 433 U/L (73-393); POTASSIUM 5.3 mmol/L (3.5-5.1); SODIUM 134 mmol/L (136-145); TOTAL PROTEIN 7.8 gm/dl (6.4-8.2)
[2017-11-28] MEDS ORDERED: SODIUM CHLORIDE 0.9% 1000ML 500 ML IV ONE (19:54)
[2017-11-28 20:28] VITALS: BP 108/62; PULSE 63; O2SAT 98
[2017-11-28] MEDS ORDERED: SULF800T23 PO (20:33)
[2017-11-28] MEDS ORDERED: NRV/5 PO (20:33)
[2017-12-03] MEDS ORDERED: NICO21DI4 TD (11:16)
[2017-12-03] MEDS ORDERED: DXY100 PO (11:16)
== END 2017-11-28 20:30 | disposition home or self-care (01) ==
LOC: C.EDB 18:46 → C.EDC 20:30
DX: E87.5 Hyperkalemia (principal); N17.9 Acute kidney failure, unspecified; T82.7XXA Infection and inflammatory reaction due to other cardiac and vascular devices, implants and grafts, initial encounter; Y71.0 Diagnostic and monitoring cardiovascular devices associated with adverse incidents; I48.91 Unspecified atrial fibrillation; I10 Essential (primary) hypertension; J44.9 Chronic obstructive pulmonary disease, unspecified; K21.9 Gastro-esophageal reflux disease without esophagitis; F17.200 Nicotine dependence, unspecified, uncomplicated; Z79.01 Long term (current) use of anticoagulants; Z79.899 Other long term (current) drug therapy; Z91.048 Other nonmedicinal substance allergy status; Z82.49 Family history of ischemic heart disease and other diseases of the circulatory system

== ENCOUNTER 2017-12-01 09:19 | Inpatient (IN) | payer OTHER ==
[~2017-12-01] VITALS: Ht 157.5 cm; Wt 81.3 kg
[~2017-12-01 09:19] MED LIST changes: -AMIO200T4 PO; -FURO-85 PO; +NRV/5 PO; -OXYC-57 PO; +SULF800T23 PO; -albuterol inhaler PO
--- NOTE | 2017-12-01 09:39 | EMERGENCY ROOM VISIT NOTE ---
History Report prepared by Jeri: Rafael Mancuso Under the Supervision of: Dr. Estiven Street M.D. First contact with patient: 09:35 Chief Complaint: ABNORMAL LABS Stated Complaint: 6.5 POTASSIUM History of Present Illness The patient is a 72 year old female who presents to the Emergency Room with complaints of abnormal potassium levels in her lab work. She states she had lab work done on Monday, 3 days ago, at the [facility] and her potassium was 6.3 so she was sent to [facility] for repeat lab work and her potassium came back at 5.3. She then had lab work done again and her potassium was 6.5, so she was sent here again today. The lab work also shows that her kidney function is up at 1.3, which is new for her. The patient is also experiencing a cough and diarrhea but denies chest pain, shortness of breath, and vomiting. Although she also reports that she does not feel any different overall than she did on Monday. She notes that she recently had a pacemaker implanted on October 04 of this year and it got infected. She is on 800mg of Bactrim for the infection, but it is still erythematous and has slight drainage. Source of History: patient Onset: 3 days ago Position: other (Genralized) Quality: other (Abnormal Lab Work) Timing: waxes/wanes (Potassium levels) Associated Symptoms: + cough, + diarrhea, No chest pain, No SOB, No vomiting Review of Systems See HPI for pertinent positives and negatives. A total of ten systems were reviewed and were otherwise negative. Past Medical & Surgical Medical Problems: (1) Abdominal aneurysm (2) Afib (3) Atrial fibrillation (4) Colon polyp (5) Colonic diverticular abscess (6) COPD (chronic obstructive pulmonary disease) (7) Diverticulitis (8) Diverticulosis (9) Encounter for smoking cessation counseling (10) GERD (gastroesophageal reflux disease) (11) Hypertension (12) Sciatica (13) Tachy-silvestre syndrome (14) Tobacco abuse Surgical Problems: (1) H/O tubal ligation (2) History of cardiac pacemaker (3) History of colonoscopy with polypectomy (4) History of lumpectomy of left breast (5) History of partial colectomy (6) History of tubal ligation (7) Hx of colectomy Family History Diabetes mellitus FATHER SISTER FH: colon cancer MOTHER FH: heart disease FATHER SISTER Social History Smoking Status: Current Every Day Smoker Drug Use: none Marital Status: single Housing Status: lives with family Occupation Status: unemployed Current/Historical Medications Scheduled Amiodarone HCl (Amiodarone HCl), 200 MG PO DAILY Amlodipine Besylate (Amlodipine Besylate), 5 MG PO DAILY Lisinopril (Zestril), 10 MG PO DAILY Metoprolol Succinate (Metoprolol Succinate ER), 12.5 MG PO DAILY Omeprazole (Prilosec), 40 MG PO DAILY Ranitidine (Zantac), 300 MG PO HS Sulfa/Trimethoprim (Bactrim Ds 800MG/160MG), 1 TAB PO BID Warfarin Sod (Jantoven), 1 MG PO DAILY Scheduled PRN Furosemide (Lasix), 20 MG PO DAILY PRN for Blood Pressure Allergies Coded Allergies: Adhesives (Verified Allergy, Mild, BLISTERS, 10/04/17) NO KNOWN DRUG ALLERGIES (Verified Allergy, Mild, ., 10/04/17) Physical Exam Vital Signs Date Time Temp Pulse Resp B/P (MAP) Pulse Ox O2 Delivery O2 Flow Rate FiO2 12/01/17 11:54 60 16 84/50 97 Room Air 12/01/17 10:30 96 18 91/56 97 Room Air 12/01/17 10:09 60 12/01/17 10:06 97 Room Air 12/01/17 09:26 36.7 79 20 110/75 98 Room Air Physical Exam GENERAL: Awake, alert, well-appearing, in no distress HENT: Normocephalic, atraumatic. Oropharynx unremarkable. Mucous membranes are dry. EYES: Normal conjunctiva. Sclera non-icteric. NECK: Supple. No nuchal rigidity. FROM. No JVD. RESPIRATORY: Clear to auscultation. CARDIAC: Regular rate, normal rhythm. Extremities warm and well perfused. Pulses equal. ABDOMEN: Soft, non-distended. No tenderness to palpation. No rebound or guarding. No masses. CHEST: Chronically healing pacemaker placement wound on left upper chest wall with no evidence of active infection, no erythema, warmth, or purulence RECTAL: Deferred. MUSCULOSKELETAL: Chest examination reveals no tenderness. The back is symmetrical on inspection without obvious abnormality. There is no CVA tenderness to palpation. No joint edema. LOWER EXTREMITIES: Calves are equal size bilaterally and non-tender. No edema. No discoloration. NEURO: Normal sensorium. No sensory or motor deficits noted. SKIN: No rash or jaundice noted. Medical Decision & Procedures ER Provider Diagnostic Interpretation: Radiology results as stated below per my review and radiologist interpretation: SINGLE VIEW CHEST CLINICAL HISTORY: Cough FINDINGS: An AP, portable, upright chest radiograph is compared to study dated 11/28/2017. The examination is degraded by portable technique and patient rotation. The heart is mildly enlarged and there is atherosclerotic calcification of the thoracic aorta. The pulmonary vasculature is noncongested. Emphysema and chronic interstitial thickening are similar to previous. There is no airspace consolidation or large pleural effusion. No pneumothorax is seen. The skeletal structures are osteopenic. The bony thorax is grossly intact. IMPRESSION: 1. Cardiomegaly and cardiac pacemaker. There is no radiographic evidence of congestive failure. 2. No airspace consolidation or pleural effusion is identified. Electronically signed by: Mayank Calvin M.D. 12/01/2017 10:08 AM Dictated Date/Time: 12/01/2017 10:04 AM Laboratory Results 12/01/17 10:20 Red Blood Count 5.08, Mean Corpuscular Volume 86.8, Mean Corpuscular Hemoglobin 28.9, Mean Corpuscular Hemoglobin Concent 33.3, Mean Platelet Volume 10.4, Neutrophils (%) (Auto) 70.0, Lymphocytes (%) (Auto) 18.5, Monocytes (%) (Auto) 7.5, Eosinophils (%) (Auto) 3.1, Basophils (%) (Auto) 0.6, Neutrophils # (Auto) 8.33, Lymphocytes # (Auto) 2.20, Monocytes # (Auto) 0.89, Eosinophils # (Auto) 0.37, Basophils # (Auto) 0.07 Test 12/01/17 10:05 12/01/17 10:20 12/01/17 10:36 Urine Color YELLOW Urine Appearance CLEAR (CLEAR) Urine pH 7.0 (4.5-7.5) Urine Specific [employer] 1.011 (1.000-1.030) Urine Protein NEG (NEG) Urine Glucose (UA) NEG (NEG) Urine Ketones NEG (NEG) Urine Occult Blood NEG (NEG) Urine Nitrite NEG (NEG) Urine Bilirubin NEG (NEG) Urine Urobilinogen NEG (NEG) Urine Leukocyte Esterase MODERATE (NEG) Urine WBC (Auto) 1-5 /hpf (0-5) Urine RBC (Auto) 0-4 /hpf (0-4) Urine Hyaline Casts (Auto) 1-5 /lpf (0-5) Urine Epithelial Cells (Auto) 20-30 /lpf (0-5) Urine Bacteria (Auto) NEG (NEG) White Blood Count 11.89 K/uL (4.8-10.8) Red Blood Count 5.08 M/uL (4.2-5.4) Hemoglobin 14.7 g/dL (12.0-16.0) Hematocrit 44.1 % (37-47) Mean Corpuscular Volume 86.8 fL (80-100) Mean Corpuscular Hemoglobin 28.9 pg (25-34) Mean Corpuscular Hemoglobin Concent 33.3 g/dl (32-36) Platelet Count 285 K/uL (130-400) Mean Platelet Volume 10.4 fL (7.4-10.4) Neutrophils (%) (Auto) 70.0 % Lymphocytes (%) (Auto) 18.5 % Monocytes (%) (Auto) 7.5 % Eosinophils (%) (Auto) 3.1 % Basophils (%) (Auto) 0.6 % Neutrophils # (Auto) 8.33 K/uL (1.4-6.5) Lymphocytes # (Auto) 2.20 K/uL (1.2-3.4) Monocytes # (Auto) 0.89 K/uL (0.11-0.59) Eosinophils # (Auto) 0.37 K/uL (0-0.5) Basophils # (Auto) 0.07 K/uL (0-0.2) RDW Standard Deviation 48.7 fL (36.4-46.3) RDW Coefficient of Variation 15.2 % (11.5-14.5) Immature Granulocyte % (Auto) 0.3 % Immature Granulocyte # (Auto) 0.03 K/uL (0.00-0.02) Phosphorus Level 3.7 mg/dl (2.5-4.9) Magnesium Level 2.1 mg/dl (1.8-2.4) Total Bilirubin 0.3 mg/dl (0.2-1) Direct Bilirubin 0.1 mg/dl (0-0.2) Aspartate Amino Transf (AST/SGOT) 22 U/L (15-37) Alanine Aminotransferase (ALT/SGPT) 27 U/L (12-78) Alkaline Phosphatase 210 U/L (45-117) Total Protein 8.0 gm/dl (6.4-8.2) Albumin 3.6 gm/dl (3.4-5.0) Lipase 966 U/L (73-393) Prothrombin Time 12.7 SECONDS (9.0-12.0) Prothromb Time International Ratio 1.2 (0.9-1.1) Laboratory results reviewed by me Medications Administered Medications (Trade) Dose Ordered Sig/Nataliya Route Start Time Stop Time Status Last Admin Dose Admin Calcium Gluconate 2000 mg/Sodium Chloride 70 ml @ 240 mls/hr NOW STAT IV 12/01/17 11:57 12/01/17 12:14 DC 12/01/17 12:21 240 MLS/HR Insulin Human Regular 10 units/ Syringe 10 ml @ 20 mls/min NOW STAT IV 12/01/17 11:57 12/01/17 12:00 DC 12/01/17 12:27 20 MLS/MIN Dextrose (Dextrose 50% 50ML Syringe) 50 ml NOW STAT IV 12/01/17 11:57 12/01/17 12:00 DC 12/01/17 12:22 50 ML Sodium Polystyrene Sulfonate (Kayexalate Susp) 15 gm NOW STAT PO 12/01/17 11:57 12/01/17 12:00 DC 12/01/17 11:57 15 GM Albuterol Sulfate (Ventolin 0.083% 2.5MG/3ML Neb) 2.5 mg NOW STAT INH 12/01/17 12:48 12/01/17 13:24 DC 12/01/17 12:48 2.5 MG ECG Per My Interpretation Indication: other (Abnormal Labs) Rate (beats per minute): 64 Rhythm: other (Atrial Paced) Findings: no acute ischemic change, other (Normal axis, No peaked T waves ) ED Course 0939: The patient was evaluated in room B10. A complete history and physical exam was performed. 1216: I reevaluated the patient and updated her on her test results. 1300: Upon reexamination, the patient was resting in bed. I discussed the test results and treatment plan with Samantha Guillen PA-C. The patient will be evaluated for further management. Medical Decision I reviewed the patient's past medical history, medications, and the nursing notes as described above. Differential diagnosis: Etiologies such as metabolic, infection, hypo/hyperglycemia, electrolyte abnormalities, cardiac sources, intracerebral event, toxicologic, neurologic, as well as others were entertained. The patient is a 72 y/o woman with a pmhx of afib on coumadin, s/p PPM 09/2017 complicated by infection on Bactrim presents to the emergency department for evaluation for potassium of 6.5 on outpatient labs in the setting of similar referral several days ago with repeat potassium ED of 5.1 and so d/c'd with outpatient f/u per HPI. Patient denies f/c, n/v, diarrhea, CP, SOB, urinary sx/ changes in output. On arrival the patient is relatively well-appearing in NAD, AFVSS. EKG shows atrial paced rhythm with no peaked TW. CXR unremarkable. K 7.9 in ED with Cr. 1.27 similar to several days ago. Lipase 900s but no sx c/w pancreatitis. WBC 11, nonspecific. Patient continued to appear well in ED however given patient's significant hyperkalemia of unclear etiology treatment/ admission is reasonable. Patient was given calcium, insulin dextrose, Kayexalate. INR subtherapeutic, will defer correction to admitting team. Case was d/w Wilmer Cardoza PAC who will evaluate the patient for admission. Medication Reconcilliation Current Medication List: was personally reviewed by me Blood Pressure Screening Patient's blood pressure: Normal blood pressure Consults Time Called: 1257 Consulting Physician: Samantha Guillen PA-C Returned Call: 1300 I discussed the patient with Samantha Guillen PA-C. She will evaluate the patient for further treatment. Impression Primary Impression: Hyperkalemia Critical Care I have personally spent greater than 35 minutes of critical care time in the direct management of this patient. This includes bedside care, interpretation of diagnostic studies, and testing, discussion with consultants, patient, and family members, and other required patient management activities. This 35 minutes is in excess of all separately billable procedures. Scribe Attestation The scribe's documentation has been prepared under my direction and personally reviewed by me in its entirety. I confirm that the note above accurately reflects all work, treatment, procedures, and medical decision making performed by me. Departure Information Dispostion Being Evaluated By Hospitalist Referrals Venu Olivera D.O. (PCP) Forms HOME CARE DOCUMENTATION FORM, IMPORTANT VISIT INFORMATION, WORK / SCHOOL INSTRUCTIONS Patient Instructions My [facility]
--- NOTE | 2017-12-01 10:09 | DIAGNOSTIC IMAGING REPORT ---
SINGLE VIEW CHEST CLINICAL HISTORY: Cough FINDINGS: An AP, portable, upright chest radiograph is compared to study dated 11/28/2017. The examination is degraded by portable technique and patient rotation. The heart is mildly enlarged and there is atherosclerotic calcification of the thoracic aorta. The pulmonary vasculature is noncongested. Emphysema and chronic interstitial thickening are similar to previous. There is no airspace consolidation or large pleural effusion. No pneumothorax is seen. The skeletal structures are osteopenic. The bony thorax is grossly intact. IMPRESSION: 1. Cardiomegaly and cardiac pacemaker. There is no radiographic evidence of congestive failure. 2. No airspace consolidation or pleural effusion is identified. Electronically signed by: Mayank Calvin M.D. 12/01/2017 10:08 AM Dictated Date/Time: 12/01/2017 10:04 AM
[2017-12-01 10:35] LABS: BASO % 0.6 %; BASO ABS # 0.07 K/uL (0-0.2); EOS % 3.1 %; EOS ABS # 0.37 K/uL (0-0.5); HEMATOCRIT 44.1 % (37-47); HEMOGLOBIN 14.7 g/dL (12.0-16.0); IG# 0.03 K/uL (0.00-0.02); LYMPH % 18.5 %; MEAN CELL VOLUME 86.8 fL (80-100); MEAN CORPUSCULAR HEMOGLOBIN 28.9 pg (25-34); MEAN CORPUSCULAR HGB CONC 33.3 g/dl (32-36); MEAN PLATELET VOLUME 10.4 fL (7.4-10.4); MONO % 7.5 %; MONO ABS # 0.89 K/uL (0.11-0.59); NEUT ABS # 8.33 K/uL (1.4-6.5); PLATELET COUNT 285 K/uL (130-400); RED CELL DISTRIBUTION WIDTH CV 15.2 % (11.5-14.5); RED CELL DISTRIBUTION WIDTH SD 48.7 fL (36.4-46.3); WHITE BLOOD COUNT 11.89 K/uL (4.8-10.8)
[2017-12-01 11:03] LABS: INR 1.2 (0.9-1.1)
[2017-12-01 11:54] LABS: ALBUMIN 3.6 gm/dl (3.4-5.0); CALCIUM 9.2 mg/dl (8.5-10.1); CREATININE 1.26 mg/dl (0.60-1.20); PHOSPHORUS 3.7 mg/dl (2.5-4.9); POTASSIUM 7.9 mmol/L (3.5-5.1)
[2017-12-01] MEDS ORDERED: SODIUM POLYST. SULF SUSP 15G/60ML PO STA (11:57)
[2017-12-01] MEDS ORDERED: DEXTROSE 50% 50 ML SYR IV STA (11:57)
[2017-12-01] MEDS ORDERED: INSULIN HUMAN REGULAR PER UNIT 10 UNITS in SYRINGE 9.9 ML IV STA (11:57)
[2017-12-01] MEDS ORDERED: CALCIUM GLUCONATE 10% 2,000 MG in SODIUM CHLORIDE 0.9% 50ML 50 ML IV STA (11:57)
[2017-12-01] MEDS ORDERED: ALBUTEROL 0.083% NEBU SOLN 3 ML VIAL INH STA (12:48)
[2017-12-01] MEDS ORDERED: SODIUM CHLORIDE 0.9% 1000ML 1,000 ML IV SCH (13:00)
[2017-12-01 13:12] VITALS: O2SAT 97; Ht 157.5 cm; Wt 81.3 kg
[2017-12-01 14:08] LABS: CALCIUM 9.7 mg/dl (8.5-10.1); CREATININE 1.27 mg/dl (0.60-1.20); POTASSIUM 5.2 mmol/L (3.5-5.1)
[2017-12-01] MEDS: ALBUTEROL 0.083% NEBU SOLN 3 ML VIAL INH SCH ×2 (15:00→19:04)
[2017-12-01 16:14] VITALS: BP 109/74; PULSE 66; TEMP 36.7; O2SAT 100
--- NOTE | 2017-12-01 16:23 | History and Physical ---
History & Physical Date & Time of Service: Dec 01, 2017 at ~11:30 Chief Complaint: 6.5 Potassium Primary Care Physician: Venu Olivera D.O. 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 She was recently seen in ED on 11/29/17 secondary to hyperkalemia found in outpatient setting, in ED K was noted to be 5.2. She presents today with potassium of 7.9. Her only complaint is paresthesias of hands and below knees 2 weeks, nausea, diarrhea 3 days resolved yesterday. She denies fever, chills, sweats, chest pain, shortness of breath, palpitations, emesis, abdominal pain. Of note she has recently been treated with Bactrim, initially single strength, for 2 week course postoperatively from pacemaker. She was off antibiotic for 2 weeks in which Bactrim was restarted at double strength secondary to continued pacemaker infection per Dr. De. In ED patient was given IV regular insulin 10 units , Kayexalate, calcium gluconate. She had no EKG changes. Lab work revealed leukocytosis 11.89, INR 1.2, BUN 18, creatinine 1.26, lipase 966. She is admitted for further evaluation and treatment of hyperkalemia. Past Medical/Surgical History Medical Problems: (1) Abdominal aneurysm Status: Chronic (2) Atrial fibrillation Status: Chronic (3) Colon polyp Status: Resolved (4) Colonic diverticular abscess Status: Resolved (5) COPD (chronic obstructive pulmonary disease) Status: Chronic (6) Diverticulitis Status: Resolved (7) Diverticulosis Status: Chronic (8) Encounter for smoking cessation counseling Status: Resolved (9) GERD (gastroesophageal reflux disease) Status: Chronic (10) Hypertension Status: Chronic (11) Sciatica Status: Chronic (12) Tachy-silvestre syndrome Status: Chronic (13) Tobacco abuse Status: Chronic Surgical Problems: (1) H/O tubal ligation Status: Chronic (2) History of cardiac pacemaker Permanent Comment: 10/04/17 Dr. De Status: Chronic (3) History of colonoscopy with polypectomy Status: Chronic (4) History of lumpectomy of left breast Status: Chronic (5) History of partial colectomy Permanent Comment: secondary to diverticulitis Status: Chronic (6) History of tubal ligation Status: Chronic (7) Hx of colectomy Permanent Comment: 12/2015 - diverticulitis - hx sigmoid colectomy - [facility] Status: Resolved Family History Diabetes mellitus FATHER SISTER FH: colon cancer MOTHER FH: heart disease FATHER SISTER Social History Smoking Status: Current Every Day Smoker (40 pack year history, "I will smoke til I , I don't care if I from it.") Smokeless Tobacco Use: No Drug Use: none Marital Status: single Housing status: lives with family (grandson) Immunizations History of Influenza Vaccine: Unknown History of Tetanus Vaccine?: Yes Tetanus Immunization Date: Apr 21, 2016 History of Pneumococcal: Unknown History of Hepatitis B Vaccine: Unknown Allergies Coded Allergies: Adhesives (Verified Allergy, Mild, BLISTERS, 10/04/17) NO KNOWN DRUG ALLERGIES (Verified Allergy, Mild, ., 10/04/17) Home Medications Scheduled Amiodarone HCl (Amiodarone HCl), 200 MG PO DAILY Amlodipine Besylate (Amlodipine Besylate), 5 MG PO DAILY Lisinopril (Zestril), 10 MG PO DAILY Metoprolol Succinate (Metoprolol Succinate ER), 12.5 MG PO DAILY Omeprazole (Prilosec), 40 MG PO DAILY Ranitidine (Zantac), 300 MG PO HS Sulfa/Trimethoprim (Bactrim Ds 800MG/160MG), 1 TAB PO BID Warfarin Sod (Jantoven), 1 MG PO DAILY Scheduled PRN Furosemide (Lasix), 20 MG PO DAILY PRN for Blood Pressure Review of Systems As noted per HPI, 10 systems reviewed and negative unless noted above. Physical Exam Vital Signs Date Time Temp Pulse Resp B/P (MAP) Pulse Ox O2 Delivery O2 Flow Rate FiO2 12/01/17 15:17 68 16 110/60 98 12/01/17 13:15 60 12 110/62 97 Room Air 12/01/17 13:12 97 Room Air 12/01/17 11:54 60 16 84/50 97 Room Air 12/01/17 10:30 96 18 91/56 97 Room Air 12/01/17 10:09 60 12/01/17 10:06 97 Room Air 12/01/17 09:26 36.7 79 20 110/75 98 Room Air General Appearance: WD/WN, no apparent distress, + obese Head: normocephalic, atraumatic Eyes: normal inspection, PERRL, sclerae normal ENT: normal ENT inspection, hearing grossly normal, pharynx normal, + pertinent finding (mild hoarseness) Neck: supple, no adenopathy, thyroid normal, no JVD Respiratory/Chest: chest non-tender, lungs clear, normal breath sounds, no respiratory distress, no accessory muscle use Cardiovascular: regular rate, rhythm, no edema, no gallop, no JVD, no murmur, normal peripheral pulses, + pertinent finding (+LACW Pacer incision with midline open wound. Around wound, no erythema or warmth. No drainage noted. She had dry dressing) Abdomen/GI: normal bowel sounds, non tender, soft, no organomegaly Back: normal inspection, no muscle spasm Extremities/Musculoskelatal: normal inspection, no calf tenderness, normal capillary refill, no pedal edema Neurologic/Psych: alert, normal mood/affect, oriented x 3 Skin: normal color, warm/dry, no rash Diagnostics Laboratory Results Results Past 24 Hours Test 12/01/17 10:05 12/01/17 10:20 12/01/17 10:36 12/01/17 13:32 Range/Units Urine Color YELLOW Urine Appearance CLEAR CLEAR Urine pH 7.0 4.5-7.5 Urine Specific [place] 1.011 1.000-1.030 Urine Protein NEG NEG Urine Glucose (UA) NEG NEG Urine Ketones NEG NEG Urine Occult Blood NEG NEG Urine Nitrite NEG NEG Urine Bilirubin NEG NEG Urine Urobilinogen NEG NEG Urine Leukocyte Esterase MODERATE NEG Urine WBC (Auto) 1-5 0-5 /hpf Urine RBC (Auto) 0-4 0-4 /hpf Urine Hyaline Casts (Auto) 1-5 0-5 /lpf Urine Epithelial Cells (Auto) 20-30 0-5 /lpf Urine Bacteria (Auto) NEG NEG White Blood Count 11.89 4.8-10.8 K/uL Red Blood Count 5.08 4.2-5.4 M/uL Hemoglobin 14.7 12.0-16.0 g/dL Hematocrit 44.1 37-47 % Mean Corpuscular Volume 86.8 80-100 fL Mean Corpuscular Hemoglobin 28.9 25-34 pg Mean Corpuscular Hemoglobin Concent 33.3 32-36 g/dl Platelet Count 285 130-400 K/uL Mean Platelet Volume 10.4 7.4-10.4 fL Neutrophils (%) (Auto) 70.0 % Lymphocytes (%) (Auto) 18.5 % Monocytes (%) (Auto) 7.5 % Eosinophils (%) (Auto) 3.1 % Basophils (%) (Auto) 0.6 % Neutrophils # (Auto) 8.33 1.4-6.5 K/uL Lymphocytes # (Auto) 2.20 1.2-3.4 K/uL Monocytes # (Auto) 0.89 0.11-0.59 K/uL Eosinophils # (Auto) 0.37 0-0.5 K/uL Basophils # (Auto) 0.07 0-0.2 K/uL RDW Standard Deviation 48.7 36.4-46.3 fL RDW Coefficient of Variation 15.2 11.5-14.5 % Immature Granulocyte % (Auto) 0.3 % Immature Granulocyte # (Auto) 0.03 0.00-0.02 K/uL Sodium Level 133 137 136-145 mmol/L Potassium Level 7.9 5.2 3.5-5.1 mmol/L Chloride Level 105 107 98-107 mmol/L Carbon Dioxide Level 23 23 21-32 mmol/L Anion Gap 5.0 7.0 3-11 mmol/L Blood Urea Nitrogen 18 18 7-18 mg/dl Creatinine 1.26 1.27 0.60-1.20 mg/dl Est Creatinine Clear Calc Drug Dose 41.2 40.9 ml/min Estimated GFR () 50.0 49.5 Estimated GFR (Non- 43.1 42.7 BUN/Creatinine Ratio 14.3 13.8 10-20 Random Glucose 93 62 70-99 mg/dl Calcium Level 9.2 9.7 8.5-10.1 mg/dl Phosphorus Level 3.7 2.5-4.9 mg/dl Magnesium Level 2.1 1.8-2.4 mg/dl Total Bilirubin 0.3 0.2-1 mg/dl Direct Bilirubin 0.1 0-0.2 mg/dl Aspartate Amino Transf (AST/SGOT) 22 15-37 U/L Alanine Aminotransferase (ALT/SGPT) 27 12-78 U/L Alkaline Phosphatase 210 45-117 U/L Total Protein 8.0 6.4-8.2 gm/dl Albumin 3.6 3.4-5.0 gm/dl Lipase 966 73-393 U/L Prothrombin Time 12.7 9.0-12.0 SECONDS Prothromb Time International Ratio 1.2 0.9-1.1 Microbiology Results 12/01/17 Blood Culture, Ordered Pending 12/01/17 Blood Culture, Ordered Pending Diagnostic Radiology CXR: 1. Cardiomegaly and cardiac pacemaker. There is no radiographic evidence of congestive failure. 2. No airspace consolidation or pleural effusion is identified. EKG Atrial paced rhythm, no St T wave changes, no change from previous Rate 64bpm Impression Assessment and Plan This is a 72-year-old white female with significant past medical history of PAF , history of tachy-silvestre syndrome status post PPM on 10/04/[address] De, COPD, Tobacco abuse, Gerd, diverticulosis, hx of diverticulitis s/p colectomy, chronic diastolic heart failure who presents to [facility] referred from PCP secondary to hyperkalemia, K of 6.5. She was on Bactrim single strength for 2 weeks due to, "pacer infection." She further required additional course of Bactrim at Double Strength two weeks later. She last took dose of bactrim in ER today. In ED patient was given IV regular insulin 10 units, Kayexalate, calcium gluconate. She had no EKG changes. Lab work revealed leukocytosis 11.89, INR 1.2, BUN 18, creatinine 1.26, lipase 966. Repeat K now 5.2. She is admitted for further evaluation and treatment of hyperkalemia. Hyperkalemia secondary to Bactrim -In ED received IV regular insulin 10 units, calcium gluconate, Kayexalate -Admit to telemetry to monitor for arrhythmia secondary to hyperkalemia -Stop Bactrim and Stop Lisinopril -Low K diet -Repeat K 5.2 -Kayexalate 3 times daily, can discontinue if 3rd K level WNL -Albuterol nebulizer treatment every 6 hours -Serial BMP every 8 hours -Consult nephrology Dr. Goyal -Per Dr. Goyal's recommendations we will start D5W with bicarb 150 at 100ml/ hr Elevated Lipase -Patient is asymptomatic, no abdominal pain -Trend lipase 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 De on 10/04 -spoke with Dr. De -Stop Bactrim, Start Doxycycline 100mg po bid -Blood cultures x 2 -Picture of wound sent to her via [employer] -She wishes to be updated on condition on Monday12/04/17 at phone number . She is out of hospital until Monday. Patient may need pacer extracted per Dr. De PAF -amiodarone, Metoprolol, and pacer for rate/rhythm control -INR sub therapeutic -Was taking 1mg coumadin daily -Will give 2mg this evening. Dose on daily basis. -INR in a.m. HTN -bp on low side. -hold amlodipine, lisinopril and lasix -continue metoprolol Chronic Diastolic CHF -continue BB. -ANGELA on hold secondary to hyperkalemia -Lasix on hold secondary to hypotension. -monitor volume status closely, currently euvolemic; however on IVF. -daily weights, I and Os. COPD Tobacco Abuse -add nicotine patch -albuterol nebs for hyperkalemia -not on any ICS/LABA GERD -asymptomatic -continue PPI, Zantac Dr. Adair attending physician addendum: I have seen and assessed the patient without our medical team's physician pest controller assistant and agree with the assessment and plan as above and would like to comment that patient's hyperkalemia likely secondary to bactrim use. Her repeat serum potassium level went down from 7.9 to 5.2. A third serum potassium level has been drawn and lab results pending. Will continue Kayexalate for now but if serum potassium remains in low 5 ranges or less then can likely discontinue Kayexalate. Also continuing with nebulizer treatments and Iv fluids with serum bicarbonate also as measures to reduce potassium levels. In place of Bactrim, will have patient on doxycycline. Will follow up blood culture results. On physical exam patient is not in distress Lungs are clear to auscultation Heart rate: bradycardic Abdomen: soft, nontender, positive bowel sounds Extremities: no edema, moves all extremities Advanced Directives Existing Living Will: No Existing Power of Employment Officer: No Resuscitation Status DNR Discussed with patient at bedside she wishes to be DNR VTE Prophylaxis Will order VTE Prophylaxis: Yes (SCDS, Coumadin currently on hold secondary to hyperkalemia, awaiting if further intervention needs to be done to remove K, like HD.)
[2017-12-01] MEDS ORDERED: FURO20TA PO (16:30)
[2017-12-01] MEDS ORDERED: CRD200 PO (16:30)
[2017-12-01] MEDS ORDERED: SODIUM POLYST. SULF SUSP 15G/60ML PO SCH (16:30)
[2017-12-01] MEDS: SODIUM BICARBONATE 8.4% INJ 150 MEQ in DEXTROSE 5% 1000ML 1,000 ML IV SCH (17:06)
[2017-12-01] MEDS: WARFARIN SOD 2 MG TAB PO SCH (18:11)
[2017-12-01 18:56] VITALS: BP 106/67; PULSE 60; TEMP 36.6; O2SAT 94
[2017-12-01 19:04] VITALS: PULSE 60; O2SAT 95
[2017-12-01 19:30] LABS: CALCIUM 8.9 mg/dl (8.5-10.1); CREATININE 1.49 mg/dl (0.60-1.20); POTASSIUM 5.7 mmol/L (3.5-5.1)
[2017-12-01 20:05] VITALS: O2SAT 95
--- NOTE | 2017-12-01 20:05 | Nephrology Consultation ---
Nephrology Consultation Date of Consultation: Dec 01, 2017. Attending Physician: Dr Adair Requesting Physician: Dr Adair Reason for Consultation: hyperkalemia History of Present Illness 72 year old female whom I'm asked to evaluate for presenting K of 7.9 today on bactrim as outpatient at 1020 this am. Her K was medically managed w/ IV insulin, kayexalate, calcium gluconate; repeat K at 1330 was 5.2. I discussed her care w/ Dr. Adair earlier this afternoon. PMH as below, including 09/2017 pacer placement for tachy/silvestre syndrome. She has had issues w/ infected pacer pocket, managed w/ bactrim which was recently changed to DS. She was seen here on 11/29 for elevated k 6.3 on outpt labs which was 5.2 on presentation to ER here. At PCP ER f/u visit yesterday, repeat K came back at 6.5 and she was sent here. Her baseline creatinine is 0.8-0.9. She also takes lisinopril 10 mg daily as outpt. She has been having ongoing diarrhea for past weeks and intermittent N as well. No f/c. She had a large bm w/ kayexalate and has had a second kayexalate dose at about 1700; has tid kayexalate ordered. BG after IV insulin earlier today was 62; on last check was 126. has been having MITCHELL recently as well but no nsaids to tx this. Past Medical/Surgical History -chronic diastolic HF -pAF and tachy/silvestre syndrome s/p pacer on 09/2017 -COPD -active tobacco abuse -GERD -diverticulitis s/p colectomy Family History Diabetes mellitus FATHER SISTER FH: colon cancer MOTHER FH: heart disease FATHER SISTER Social History Smoking Status: Current Every Day Smoker (40 pack year history, "I will smoke til I , I don't care if I from it.") Drug Use: none Marital Status: single Housing Status: lives with family Allergies Coded Allergies: Adhesives (Verified Allergy, Mild, BLISTERS, 10/04/17) NO KNOWN DRUG ALLERGIES (Verified Allergy, Mild, ., 10/04/17) Medications Current Inpatient Medications Medications (Trade) Dose Ordered Sig/Nataliya Route Start Time Stop Time Status Last Admin Dose Admin Albuterol Sulfate (Ventolin 0.083% 2.5MG/3ML Neb) 2.5 mg Q6R INH 12/01/17 15:00 12/31/17 14:59 Sodium Polystyrene Sulfonate (Kayexalate Susp) 15 gm TID PO 12/01/17 16:30 12/31/17 16:29 12/01/17 17:08 15 GM Sodium Bicarbonate 150 meq/Dextrose 1,150 ml @ 100 mls/hr [id number] IV 12/01/17 16:30 12/31/17 16:29 12/01/17 17:06 100 MLS/HR Doxycycline Hyclate (Vibramycin Cap) 100 mg BID PO 12/01/17 21:00 12/11/17 20:59 Nicotine (Nicoderm Cq 21MG Patch) 1 patch QAM TD 12/02/17 09:00 01/01/18 08:59 Miscellaneous (Remove Nicoderm Patch) 1 ea HS N/A 12/01/17 21:00 12/31/17 20:59 Warfarin Sodium (Coumadin Tab) 2 mg DAILY@16 PO 12/01/17 17:00 12/31/17 16:59 12/01/17 18:11 2 MG Amiodarone HCl (Cordarone Tab) 200 mg DAILY PO 12/02/17 09:00 01/01/18 08:59 Metoprolol Succinate (Toprol Xl Tab) 12.5 mg DAILY PO 12/02/17 09:00 01/01/18 08:59 Pantoprazole Sodium (Protonix Tab) 40 mg DAILY PO 12/02/17 09:00 01/01/18 08:59 Ranitidine HCl (zANTac TAB) 150 mg HS PO 12/01/17 21:00 12/31/17 20:59 Home Meds and Scripts Medications Dose Route/Sig Max Daily Dose Days Date Category Dose Instructions Lasix (Furosemide) 20 Mg Tab 20 Mg PO DAILY PRN 12/01/17 Reported for swelling Amiodarone HCl 200 Mg Tab 200 Mg PO DAILY 12/01/17 Reported Bactrim Ds 800MG/160MG (Trimethoprim/Sulfamethoxazole) Tab 1 Tab PO BID 11/28/17 Reported PRESCRIBED 11/23/2017, TAKE DIRECTED UNTIL GONE Amlodipine Besylate 5 Mg Tab 5 Mg PO DAILY 11/28/17 Reported Zestril (Lisinopril) 20 Mg Tab 10 Mg PO DAILY 09/08/17 Reported Metoprolol Succinate ER (Metoprolol Succinate) 25 Mg Tabcr 12.5 Mg PO DAILY 08/08/17 Reported Jantoven (Warfarin Sodium) 2 Mg Tab 1 Mg PO DAILY 08/08/17 Reported TAKE 1/2 TABLET (1 MG) EVERY DAY OR OTHERWISE DIRECTED TO TAKE BY ANTICOAGULATION CLINIC/MD Zantac (Ranitidine HCl) 300 Mg Tab 300 Mg PO HS 06/05/15 Reported Prilosec (Omeprazole) 20 Mg Capcr 40 Mg PO DAILY 06/05/15 Reported Review of Systems Constitutional: + fatigue, No fever, No weight loss, No weakness Eyes: No worsening of vision ENT: No hearing loss Respiratory: No cough, No shortness of breath Cardiac: + chest pain (some pain over pacer pocket), No edema, No palpitations Abdomen: + nausea (chronic past weeks), + diarrhea (chronic past weeks), No pain, No vomiting, No GI bleeding Musculoskeletal: No joint pain Female : No dysuria, No urinary frequency, No hematuria Neuro: No memory loss, No weakness, No numbness/tingling Psych: No depression symptoms, No anxiety Heme: No abnormal bleeding/bruising Endo: + fatigue Skin: No rash, No itch Physical Exam Date Time Temp Pulse Resp B/P (MAP) Pulse Ox O2 Delivery O2 Flow Rate FiO2 12/01/17 16:14 36.7 66 18 109/74 (86) 100 Room Air 12/01/17 15:17 68 16 110/60 98 12/01/17 13:15 60 12 110/62 97 Room Air 12/01/17 13:12 97 Room Air 12/01/17 11:54 60 16 84/50 97 Room Air 12/01/17 10:30 96 18 91/56 97 Room Air 12/01/17 10:09 60 12/01/17 10:06 97 Room Air 12/01/17 09:26 36.7 79 20 110/75 98 Room Air General Appearance: WD/WN, no apparent distress, + pertinent finding (on ra, maneuvers readily) Eyes: EOMI ENT: hearing grossly normal Neck: supple Respiratory/Chest: no respiratory distress, + wheezing (slight occasional insp ) Cardiovascular: regular rate, rhythm, no edema Abdomen: normal bowel sounds, non tender, soft, + pertinent finding (no mir) Extremities: no pedal edema Neurologic/Psych: no motor/sensory deficits, alert, normal mood/affect, oriented x 3 Skin: no jaundice, warm/dry, + pertinent finding (pacer pocket w/ eschar no pus ) Diagnostics Last 24 Hours Test 12/01/17 10:05 12/01/17 10:20 12/01/17 10:36 12/01/17 13:32 Urine Color YELLOW Urine Appearance CLEAR Urine pH 7.0 Urine Specific [place] 1.011 Urine Protein NEG Urine Glucose (UA) NEG Urine Ketones NEG Urine Occult Blood NEG Urine Nitrite NEG Urine Bilirubin NEG Urine Urobilinogen NEG Urine Leukocyte Esterase MODERATE Urine WBC (Auto) 1-5 /hpf Urine RBC (Auto) 0-4 /hpf Urine Hyaline Casts (Auto) 1-5 /lpf Urine Epithelial Cells (Auto) 20-30 /lpf Urine Bacteria (Auto) NEG White Blood Count 11.89 K/uL Red Blood Count 5.08 M/uL Hemoglobin 14.7 g/dL Hematocrit 44.1 % Mean Corpuscular Volume 86.8 fL Mean Corpuscular Hemoglobin 28.9 pg Mean Corpuscular Hemoglobin Concent 33.3 g/dl Platelet Count 285 K/uL Mean Platelet Volume 10.4 fL Neutrophils (%) (Auto) 70.0 % Lymphocytes (%) (Auto) 18.5 % Monocytes (%) (Auto) 7.5 % Eosinophils (%) (Auto) 3.1 % Basophils (%) (Auto) 0.6 % Neutrophils # (Auto) 8.33 K/uL Lymphocytes # (Auto) 2.20 K/uL Monocytes # (Auto) 0.89 K/uL Eosinophils # (Auto) 0.37 K/uL Basophils # (Auto) 0.07 K/uL RDW Standard Deviation 48.7 fL RDW Coefficient of Variation 15.2 % Immature Granulocyte % (Auto) 0.3 % Immature Granulocyte # (Auto) 0.03 K/uL Sodium Level 133 mmol/L 137 mmol/L Potassium Level 7.9 mmol/L 5.2 mmol/L Chloride Level 105 mmol/L 107 mmol/L Carbon Dioxide Level 23 mmol/L 23 mmol/L Anion Gap 5.0 mmol/L 7.0 mmol/L Blood Urea Nitrogen 18 mg/dl 18 mg/dl Creatinine 1.26 mg/dl 1.27 mg/dl Est Creatinine Clear Calc Drug Dose 41.2 ml/min 40.9 ml/min Estimated GFR () 50.0 49.5 Estimated GFR (Non- 43.1 42.7 BUN/Creatinine Ratio 14.3 13.8 Random Glucose 93 mg/dl 62 mg/dl Calcium Level 9.2 mg/dl 9.7 mg/dl Phosphorus Level 3.7 mg/dl Magnesium Level 2.1 mg/dl Total Bilirubin 0.3 mg/dl Direct Bilirubin 0.1 mg/dl Aspartate Amino Transf (AST/SGOT) 22 U/L Alanine Aminotransferase (ALT/SGPT) 27 U/L Alkaline Phosphatase 210 U/L Total Protein 8.0 gm/dl Albumin 3.6 gm/dl Lipase 966 U/L Prothrombin Time 12.7 SECONDS Prothromb Time International Ratio 1.2 Diagnostic Radiology: cxr 1. Cardiomegaly and cardiac pacemaker. There is no radiographic evidence of congestive failure. 2. No airspace consolidation or pleural effusion is identified. EKG: atrial paced; low voltage Assessment & Plan 72 y/o F w/ infected pacer pocket after 09/2017 placement and baseline creatinine 0.8 treated recently w/ DS bactrim and on outpt lisinopril with K 7.9 and creat 1.3 on presentation; her hyperkalemia improved w/ medical management to 5.2 at 1330 today. I discussed her care w/ Dr Adair earlier this afternoon and recommended bicarb gtt since she is not floridly overloaded or w/ DM. her urine sediment is bland. She does have elevated WBC > her abtx were changed to doxycycline. her other chemistries are acceptable except for low BG of 62 on 1330 labs. -cont to hold ACEI -continue bicarb gtt for now at 100 mL hourly -on RTC nebs for copd/wheeze -repeat labs ordered for now stat >> based on result will decide if she needs another lab before morning labs; she may well have rebound hyperkalemia after medical tx earlier today >> has had second kayexalate dose; will give dextrose and 5 units IV insulin w/ D50 as well for K 5.7; worsening harriett on labs also noted -bmp ordered for am -f/u pending blood cxs -agree w/ low K, low Na diet > may be able to liberalize soon in terms of K though Appreciate consult; will follow with you. Care coordinated w/ Dr. Adair
[2017-12-01] MEDS ORDERED: INSULIN HUMAN REGULAR PER UNIT 5 UNITS in SYRINGE 4.95 ML IV ONE (20:15)
[2017-12-01] MEDS ORDERED: DEXTROSE 50% 50 ML SYR IV ONE (20:15)
[2017-12-01] MEDS: DOXYCYCLINE HYCLATE 100 MG CAP PO SCH (20:53)
[2017-12-01] MEDS: RANITIDINE HCL 150 MG TAB PO SCH (20:53)
[2017-12-01 23:00] VITALS: BP 95/59; PULSE 59; TEMP 37; O2SAT 92
[2017-12-02] VITALS (8 sets, daily range): BP systolic 87–116; BP diastolic 55–66; PULSE 59–67; TEMP 36.3–37; O2SAT 94–95
[2017-12-02] MEDS: ALBUTEROL 0.083% NEBU SOLN 3 ML VIAL INH SCH ×2 (02:07→07:17)
[2017-12-02] MEDS: SODIUM BICARBONATE 8.4% INJ 150 MEQ in DEXTROSE 5% 1000ML 1,000 ML IV SCH (03:32)
[2017-12-02 08:52] LABS: HEMATOCRIT 40.1 % (37-47); HEMOGLOBIN 13.2 g/dL (12.0-16.0); MEAN CELL VOLUME 86.4 fL (80-100); MEAN CORPUSCULAR HEMOGLOBIN 28.4 pg (25-34); MEAN CORPUSCULAR HGB CONC 32.9 g/dl (32-36); MEAN PLATELET VOLUME 10.6 fL (7.4-10.4); PLATELET COUNT 206 K/uL (130-400); RED CELL DISTRIBUTION WIDTH CV 15.1 % (11.5-14.5); RED CELL DISTRIBUTION WIDTH SD 48.5 fL (36.4-46.3)
[2017-12-02 08:59] LABS: INR 1.2 (0.9-1.1)
[2017-12-02] MEDS: NICOTINE 21 MG/24 HR TDSY TD SCH (09:00)
[2017-12-02] MEDS: PANTOprazole SOD 40 MG TAB PO SCH (09:27)
[2017-12-02] MEDS: DOXYCYCLINE HYCLATE 100 MG CAP PO SCH ×2 (09:27→20:53)
[2017-12-02] MEDS: METOPROLOL SUCC 25MG EXT REL TAB PO SCH (09:28)
[2017-12-02] MEDS: AMIODARONE 200 MG TAB PO SCH (09:28)
[2017-12-02 09:50] LABS: CALCIUM 8.5 mg/dl (8.5-10.1); CREATININE 1.41 mg/dl (0.60-1.20); POTASSIUM 4.1 mmol/L (3.5-5.1)
--- NOTE | 2017-12-02 13:01 | Nephrology Progress Note ---
Nephrology Progress Note Date of Service: Dec 02, 2017. Subjective no interval events; K improved; not sob Objective Date Time Temp Pulse Resp B/P (MAP) Pulse Ox O2 Delivery O2 Flow Rate FiO2 12/02/17 11:09 36.3 61 18 106/63 (77) 94 Room Air 12/02/17 08:00 Room Air 12/02/17 07:17 63 18 94 Room Air 12/02/17 06:50 36.6 61 16 99/60 (73) 94 Room Air 12/02/17 03:40 67 97/64 (75) 12/02/17 02:50 37.0 65 16 87/55 (66) 94 Room Air 12/01/17 23:00 37.0 59 17 95/59 (71) 92 Room Air 12/01/17 20:05 95 Room Air 12/01/17 19:04 60 18 95 Room Air 12/01/17 18:56 36.6 60 18 106/67 (80) 94 Room Air 12/01/17 16:14 36.7 66 18 109/74 (86) 100 Room Air 12/01/17 15:17 68 16 110/60 98 12/01/17 13:15 60 12 110/62 97 Room Air 12/01/17 13:12 97 Room Air Physical Exam: General Appearance: WD/WN, no apparent distress, + pertinent finding (on ra, maneuvers readily for exam) Eyes: EOMI ENT: hearing grossly normal Neck: supple Respiratory/Chest: no respiratory distress, diminished air entry but clear Cardiovascular: regular rate, rhythm, no edema Abdomen: normal bowel sounds, non tender, soft, + pertinent finding (no mir) Extremities: no pedal edema Neurologic/Psych: no motor/sensory deficits, alert, normal mood/affect, oriented x 3 Skin: no jaundice, warm/dry, + pertinent finding (pacer pocket w/ eschar no pus ) Current Inpatient Medications Medications (Trade) Dose Ordered Sig/Nataliya Route Start Time Stop Time Status Last Admin Dose Admin Doxycycline Hyclate (Vibramycin Cap) 100 mg BID PO 12/01/17 21:00 12/11/17 20:59 12/02/17 09:27 100 MG Nicotine (Nicoderm Cq 21MG Patch) 1 patch QAM TD 12/02/17 09:00 01/01/18 08:59 Miscellaneous (Remove Nicoderm Patch) 1 ea HS N/A 12/01/17 21:00 12/31/17 20:59 Warfarin Sodium (Coumadin Tab) 2 mg DAILY@16 PO 12/01/17 17:00 12/31/17 16:59 12/01/17 18:11 2 MG Amiodarone HCl (Cordarone Tab) 200 mg DAILY PO 12/02/17 09:00 01/01/18 08:59 12/02/17 09:28 200 MG Metoprolol Succinate (Toprol Xl Tab) 12.5 mg DAILY PO 12/02/17 09:00 01/01/18 08:59 12/02/17 09:28 12.5 MG Pantoprazole Sodium (Protonix Tab) 40 mg DAILY PO 12/02/17 09:00 01/01/18 08:59 12/02/17 09:27 40 MG Ranitidine HCl (zANTac TAB) 150 mg HS PO 12/01/17 21:00 12/31/17 20:59 12/01/17 20:53 150 MG Last 24 Hours Test 12/01/17 13:32 12/01/17 18:52 12/02/17 08:24 Sodium Level 137 mmol/L 136 mmol/L 138 mmol/L Potassium Level 5.2 mmol/L 5.7 mmol/L 4.1 mmol/L Chloride Level 107 mmol/L 105 mmol/L 101 mmol/L Carbon Dioxide Level 23 mmol/L 21 mmol/L 25 mmol/L Anion Gap 7.0 mmol/L 9.0 mmol/L 12.0 mmol/L Blood Urea Nitrogen 18 mg/dl 20 mg/dl 18 mg/dl Creatinine 1.27 mg/dl 1.49 mg/dl 1.41 mg/dl Est Creatinine Clear Calc Drug Dose 40.9 ml/min 34.9 ml/min 37.1 ml/min Estimated GFR () 49.5 40.8 43.6 Estimated GFR (Non- 42.7 35.2 37.6 BUN/Creatinine Ratio 13.8 13.2 12.6 Random Glucose 62 mg/dl 126 mg/dl 190 mg/dl Calcium Level 9.7 mg/dl 8.9 mg/dl 8.5 mg/dl White Blood Count 10.90 K/uL Red Blood Count 4.64 M/uL Hemoglobin 13.2 g/dL Hematocrit 40.1 % Mean Corpuscular Volume 86.4 fL Mean Corpuscular Hemoglobin 28.4 pg Mean Corpuscular Hemoglobin Concent 32.9 g/dl RDW Standard Deviation 48.5 fL RDW Coefficient of Variation 15.1 % Platelet Count 206 K/uL Mean Platelet Volume 10.6 fL Prothrombin Time 12.8 SECONDS Prothromb Time International Ratio 1.2 Lipase 955 U/L Date/Time Source Procedure Growth Status 12/01/17 16:48 Blood Blood Culture Pending Received 12/01/17 16:41 Blood Blood Culture Pending Received Assessment & Plan 72 y/o F w/ infected pacer pocket after 09/2017 placement and baseline creatinine 0.8 treated recently w/ DS bactrim and on outpt lisinopril with K 7.9 and creat 1.3 on presentation 12/01; her hyperkalemia improved w/ medical management, including bicarb gtt now off Acute renal failure (atn versus prerenal from bm) and hyperkalemia (resolved) -urine sediment not inflamed -cont to hold ACEI until renal function normalizes -reasonable to hold bicarb gtt for now -on RTC nebs for copd/wheeze -repeat bmp for 1500 >>recommend repeat bmp early next week and following week as outpt; hold ACEI if d/c until renal function back to nl -no f/u in CKD clinic needed unless pt /providers desire -f/u pending blood cxs -agree w/ low K, low Na diet > may be able to liberalize soon in terms of K though Appreciate consult; will follow with you.
[2017-12-02] MEDS: WARFARIN SOD 2 MG TAB PO SCH (15:29)
--- NOTE | 2017-12-02 17:55 | Progress Note ---
Progress Note Date of Service Dec 02, 2017. Progress Note Subjective Patient denies chest pain or palpitations of shortness of breath. Patient denies abdominal pain. Physical exam General Appearance: no apparent distress Head: normocephalic, atraumatic Eyes: normal inspection, sclerae normal ENT: normal ENT inspection, hearing grossly normal, pharynx normal Neck: no JVD Respiratory/Chest: chest non-tender, lungs clear, normal breath sounds, no respiratory distress, no accessory muscle use Cardiovascular: bradycardia, dressing over LACW Pacer incision with midline open wound Abdomen/GI: normal bowel sounds, non tender, soft, no organomegaly Back: normal inspection, no muscle spasm Extremities/Musculoskelatal: normal inspection, no calf tenderness, normal capillary refill, no pedal edema Neurologic/Psych: alert, normal mood/affect, oriented x 3 Skin: normal color, warm/dry, no rash Assessment and Plan Hyperkalemia secondary to Bactrim -In ED received IV regular insulin 10 units, calcium gluconate, Kayexalate -during hospital course so fair she has received additional Kayexalate, insulin , albuterol nebulizer and D5W with bicarb 150 at 100ml/hr -potassium levels went down from 7.9 to 5.2 to 5.7 to 4.1 -repeat afternoon potassium after holding off treatments with potassium still within normal limits but rising to 4.6 -will repeat potassium level at 9PM on 12/02/17m if continues to be elevated then should resume Kayexalate and D5W with bicarb 150 at 100ml/hr -nephrology service continues to be following the patient Acute kidney injury on chronic kidney disease has received IV fluids during this amdission Elevated Lipase -Patient is asymptomatic, no abdominal pain 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 De on 10/04 -medical team contacted Dr. De on admission. She wishes to be updated on condition on Monday12/04/17 at phone number [phone]. She is out of hospital until Monday. Patient may need pacer extracted per Dr. De. -alternatively patient has original pacemaker clinic follow up appointment on 2:00 PM Pacer Clinic [facility], [facility] -off Bactrim -continue Doxycycline 100mg po bid -Blood cultures pending results PAF -amiodarone, Metoprolol, and pacer for rate/rhythm control -INR sub therapeutic -Was taking 1mg coumadin daily -Was given 2mg daily starting on admission date, continue coumadin dose HTN history however blood pressure low normotensive without blood pressure medications -continue holding the amlodipine, lisinopril and lasix -continue metoprolol Chronic Diastolic CHF -continue metoprolol -Lisinopril on hold secondary to hyperkalemia and low normotension -Lasix on hold secondary to hypotension. COPD Tobacco Abuse nicotine patch no respiratory exacerbations GERD -asymptomatic -continue PPI, Zantac DVT ppx
[2017-12-02] MEDS: RANITIDINE HCL 150 MG TAB PO SCH (20:53)
[2017-12-03 00:01] VITALS: BP 123/70; PULSE 61; TEMP 36.6; O2SAT 93
[2017-12-03 03:21] VITALS: BP 117/71; PULSE 63; TEMP 36.4; O2SAT 94
[2017-12-03 06:39] LABS: HEMOGLOBIN 13.8 g/dL (12.0-16.0); MEAN CELL VOLUME 86.2 fL (80-100); MEAN CORPUSCULAR HEMOGLOBIN 28.3 pg (25-34); MEAN CORPUSCULAR HGB CONC 32.9 g/dl (32-36); MEAN PLATELET VOLUME 10.4 fL (7.4-10.4); PLATELET COUNT 223 K/uL (130-400); RED CELL DISTRIBUTION WIDTH SD 48.2 fL (36.4-46.3); WHITE BLOOD COUNT 10.09 K/uL (4.8-10.8)
[2017-12-03 06:55] VITALS: BP 133/77; PULSE 62; TEMP 36.9; O2SAT 96
[2017-12-03 07:19] LABS: CALCIUM 8.7 mg/dl (8.5-10.1); CREATININE 1.22 mg/dl (0.60-1.20); POTASSIUM 4.5 mmol/L (3.5-5.1); TOTAL PROTEIN 6.9 gm/dl (6.4-8.2)
[2017-12-03] MEDS: NICOTINE 21 MG/24 HR TDSY TD SCH (08:26)
[2017-12-03] MEDS: AMIODARONE 200 MG TAB PO SCH (08:27)
[2017-12-03] MEDS: PANTOprazole SOD 40 MG TAB PO SCH (08:27)
[2017-12-03] MEDS: DOXYCYCLINE HYCLATE 100 MG CAP PO SCH (08:27)
[2017-12-03] MEDS: METOPROLOL SUCC 25MG EXT REL TAB PO SCH (08:27)
--- NOTE | 2017-12-03 08:53 | Progress Note ---
Internal Med Progress Note Date of Service: Dec 03, 2017. Provider Documentation: Patient denies chest pain or palpitations of shortness of breath. Patient denies abdominal pain. Patient's hyperkalemia appears resolved with repeated labs showing potassium levels within normal limits without interventions Physical exam General Appearance: no apparent distress Head: normocephalic, atraumatic Eyes: normal inspection, sclerae normal ENT: normal ENT inspection, hearing grossly normal, pharynx normal Neck: no JVD Respiratory/Chest: chest non-tender, lungs clear, normal breath sounds, no respiratory distress, no accessory muscle use Cardiovascular: bradycardia, dressing over LACW Pacer incision with midline open wound Abdomen/GI: normal bowel sounds, non tender, soft, no organomegaly Back: normal inspection, no muscle spasm Extremities/Musculoskelatal: normal inspection, no calf tenderness, normal capillary refill, no pedal edema Neurologic/Psych: alert, normal mood/affect, oriented x 3 Skin: normal color, warm/dry, no rash ASSESSMENT & PLAN: Hospital Course and Discharge Plans Bactrim induced hyperkalemia secondary to treatment of pacemaker incision site infection History of Tachy-silvestre syndrome with pacemaker and placement was done Dr. De on 10/04/17 and there was with incision infection for which patient from on chronic Bactrim Outpatient Culture & Susceptibility 10/20/17 for pansensitive ENTEROBACTER CLOACAE COMPLEX (sensitive to Cefepime, Ciprofloxacin, Gentamicin, Meropenem) Patient was found to have Hyperkalemia secondary to Bactrim -In ED received IV regular insulin 10 units, calcium gluconate, Kayexalate -during hospital course so fair she has received additional Kayexalate, insulin , albuterol nebulizer and D5W with bicarb 150 at 100ml/hr as assessed by nephrology service -potassium levels went down from 7.9 to 5.2 to 5.7 to 4.1 to 4.6 to 4.1 to 4.5 -On admission medical team contacted Dr. De in regards for switching antibiotic from bactrim to doxycycline during the hospital stay -Blood cultures have been negative; patient has been afebrile on admission and continues to be afebrile on doxycycline -at this time, it is unclear whether pacer needs to be extracted -with the hyperkalemia controlled, patient prefers for outpatient pacemaker clinic appointment on 12/05/2017 2:00 PM Pacer Clinic [facility], [facility] rather than to be assessed further as inpatient for possible pacer extraction -will plan on discharging patient with doxycycline prescription and have close follow up with primary care doctor and pacemaker clinic -patient will need to be re-assessed by primary care doctor for hyperkalemia labs and when to resume lisinopril which can also also induce hyperkalemia and when to resume amlodipine because patient's blood pressure has been low normotensive to normal without blood pressure medications Paroxysmal Atrial Fibrillation; heart rate is ventricular paced -amiodarone, Metoprolol, and pacer for rate/rhythm control -Was taking 1mg coumadin daily and INR sub therapeutic -Was given 2mg daily starting on admission date, and then daily however INR remains 1.2 -given that it is unclear whether pacer needs to be extracted, will have patient hold off on further coumadin until follow up with pacer clinic Acute kidney injury on chronic kidney disease has received IV fluids during this admission acute kidney injury resolving HTN history however blood pressure was low normotensive without blood pressure medications -blood pressure improving today -can resume home dose Lasix -hold off amlodipine and lisinopril until follow up with primary care doctor -patient will need to be re-assessed by primary care doctor for hyperkalemia labs and when to resume lisinopril which can also also induce hyperkalemia and when to resume amlodipine because patient's blood pressure has been low normotensive to normal without blood pressure medications -continue metoprolol Chronic Diastolic CHF -continue metoprolol -Lisinopril on hold secondary to hyperkalemia and low normotension -can resume home dose Lasix Elevated Lipase -Patient is asymptomatic, no abdominal pain -monitor as outpatient GERD -asymptomatic -continue PPI, Zantac COPD Tobacco Abuse nicotine patch no respiratory exacerbations Discharge Instructions hold off amlodipine and lisinopril until follow up with primary care doctor patient will need to be re-assessed by primary care doctor for hyperkalemia labs and when to resume lisinopril which can also also induce hyperkalemia and when to resume amlodipine because patient's blood pressure has been low normotensive to normal without blood pressure medications 12/04/2017 3:00 PM Fly Esteves MD Internal Medicine [facility] given that it is unclear whether pacer needs to be extracted, will have patient hold off on further coumadin until follow up with pacer clinic 12/05/2017 2:00 PM Pacer Clinic [facility] Card[facility], [facility] 12/14/2017 1:15 PM [facility] Clinic [facility], [facility] 01/04/2018 1:00 PM Venu Olivera, Internal Medicine [facility] Vital Signs: Date Time Temp Pulse Resp B/P (MAP) Pulse Ox O2 Delivery O2 Flow Rate FiO2 12/03/17 08:00 Room Air 12/03/17 06:55 36.9 62 19 133/77 (95) 96 Room Air 12/03/17 03:21 36.4 63 17 117/71 (86) 94 Room Air 12/03/17 00:01 Room Air 12/03/17 00:01 36.6 61 22 123/70 (87) 93 Room Air 12/02/17 19:55 36.6 59 17 116/66 (83) 94 Room Air 12/02/17 16:00 95 Room Air 12/02/17 15:34 36.5 60 19 114/66 (82) 95 Room Air Lab Results: Results Past 24 Hours Test 12/02/17 14:48 12/02/17 20:48 12/03/17 05:57 Range/Units Potassium Level 4.6 4.1 4.5 3.5-5.1 mmol/L White Blood Count 10.09 4.8-10.8 K/uL Red Blood Count 4.87 4.2-5.4 M/uL Hemoglobin 13.8 12.0-16.0 g/dL Hematocrit 42.0 37-47 % Mean Corpuscular Volume 86.2 80-100 fL Mean Corpuscular Hemoglobin 28.3 25-34 pg Mean Corpuscular Hemoglobin Concent 32.9 32-36 g/dl RDW Standard Deviation 48.2 36.4-46.3 fL RDW Coefficient of Variation 15.0 11.5-14.5 % Platelet Count 223 130-400 K/uL Mean Platelet Volume 10.4 7.4-10.4 fL Sodium Level 137 136-145 mmol/L Chloride Level 105 98-107 mmol/L Carbon Dioxide Level 23 21-32 mmol/L Anion Gap 9.0 3-11 mmol/L Blood Urea Nitrogen 22 7-18 mg/dl Creatinine 1.22 0.60-1.20 mg/dl Est Creatinine Clear Calc Drug Dose 42.4 ml/min Estimated GFR () 52.0 Estimated GFR (Non- 44.8 BUN/Creatinine Ratio 18.2 10-20 Random Glucose 105 70-99 mg/dl Calcium Level 8.7 8.5-10.1 mg/dl Total Bilirubin 0.2 0.2-1 mg/dl Aspartate Amino Transf (AST/SGOT) 14 15-37 U/L Alanine Aminotransferase (ALT/SGPT) 22 12-78 U/L Alkaline Phosphatase 163 45-117 U/L Total Protein 6.9 6.4-8.2 gm/dl Albumin 3.0 3.4-5.0 gm/dl Globulin 3.9 2.5-4.0 gm/dl Albumin/Globulin Ratio 0.8 0.9-2
[2017-12-03] MEDS ORDERED: NICO21DI4 TD (11:16)
[2017-12-03] MEDS ORDERED: DXY100 PO (11:16)
--- NOTE | 2017-12-03 11:35 | Discharge Instructions ---
Discharge Instructions Date of Service Dec 03, 2017. Admission Reason for Admission: Hyperkalmia Discharge Discharge Diagnosis / Problem: Bactrim induced hyperkalemia, pacemaker incision site infection Discharge Goals Goal(s): Improve disease control Activity Recommendations Activity Limitations: per Instructions/Follow-up section . Instructions / Follow-Up Instructions / Follow-Up Hospital Course and Discharge Plans Bactrim induced hyperkalemia secondary to treatment of pacemaker incision site infection History of Tachy-silvestre syndrome with pacemaker and placement was done Dr. De on 10/04/17 and there was with incision infection for which patient from on chronic Bactrim Outpatient Culture & Susceptibility 10/20/17 for pansensitive ENTEROBACTER CLOACAE COMPLEX (sensitive to Cefepime, Ciprofloxacin, Gentamicin, Meropenem) Patient was found to have Hyperkalemia secondary to Bactrim -In ED received IV regular insulin 10 units, calcium gluconate, Kayexalate -during hospital course so fair she has received additional Kayexalate, insulin , albuterol nebulizer and D5W with bicarb 150 at 100ml/hr as assessed by nephrology service -potassium levels went down from 7.9 to 5.2 to 5.7 to 4.1 to 4.6 to 4.1 to 4.5 -On admission medical team contacted Dr. De in regards for switching antibiotic from bactrim to doxycycline during the hospital stay -Blood cultures have been negative; patient has been afebrile on admission and continues to be afebrile on doxycycline -at this time, it is unclear whether pacer needs to be extracted -with the hyperkalemia controlled, patient prefers for outpatient pacemaker clinic appointment on 12/05/2017 2:00 PM Pacer Clinic [facility] Cardiology, [facility] rather than to be assessed further as inpatient for possible pacer extraction -will plan on discharging patient with doxycycline prescription and have close follow up with primary care doctor and pacemaker clinic -patient will need to be re-assessed by primary care doctor for hyperkalemia labs and when to resume lisinopril which can also also induce hyperkalemia and when to resume amlodipine because patient's blood pressure has been low normotensive to normal without blood pressure medications Paroxysmal Atrial Fibrillation; heart rate is ventricular paced -amiodarone, Metoprolol, and pacer for rate/rhythm control -Was taking 1mg coumadin daily and INR sub therapeutic -Was given 2mg daily starting on admission date, and then daily however INR remains 1.2 -given that it is unclear whether pacer needs to be extracted, will have patient hold off on further coumadin until follow up with pacer clinic Acute kidney injury on chronic kidney disease has received IV fluids during this admission acute kidney injury resolving HTN history however blood pressure was low normotensive without blood pressure medications -blood pressure improving today -can resume home dose Lasix -hold off amlodipine and lisinopril until follow up with primary care doctor -patient will need to be re-assessed by primary care doctor for hyperkalemia labs and when to resume lisinopril which can also also induce hyperkalemia and when to resume amlodipine because patient's blood pressure has been low normotensive to normal without blood pressure medications -continue metoprolol Chronic Diastolic CHF -continue metoprolol -Lisinopril on hold secondary to hyperkalemia and low normotension -can resume home dose Lasix Elevated Lipase -Patient is asymptomatic, no abdominal pain -monitor as outpatient GERD -asymptomatic -continue PPI, Zantac COPD Tobacco Abuse nicotine patch no respiratory exacerbations Discharge Instructions hold off amlodipine and lisinopril until follow up with primary care doctor patient will need to be re-assessed by primary care doctor for hyperkalemia labs and when to resume lisinopril which can also also induce hyperkalemia and when to resume amlodipine because patient's blood pressure has been low normotensive to normal without blood pressure medications 12/04/2017 3:00 PM Fly Esteves MD Internal Medicine [facility] given that it is unclear whether pacer needs to be extracted, will have patient hold off on further coumadin until follow up with pacer clinic 12/05/2017 2:00 PM Pacer Clinic [facility], [facility] 12/14/2017 1:15 PM [facility]/04/2018 1:00 PM Venu Olivera DO Internal Medicine [facility] Current Hospital Diet Patient's current hospital diet: Low Potassium Diet (2g K), Low Sodium Diet ( 2gm Na), AHA Diet (Heart Healthy) Discharge Diet Recommended Diet: AHA Diet (Heart Healthy), Low Sodium Diet (2gm Na), Low Potassium Diet (2g K) Pending Studies Studies pending at discharge: no Laboratory Results 12/03/17 05:57 12/03/17 05:57 Test 12/01/17 10:05 12/01/17 10:20 12/02/17 08:24 12/03/17 05:57 Urine Color YELLOW Urine Appearance CLEAR (CLEAR) Urine pH 7.0 (4.5-7.5) Urine Specific Tichnor 1.011 (1.000-1.030) Urine Protein NEG (NEG) Urine Glucose (UA) NEG (NEG) Urine Ketones NEG (NEG) Urine Occult Blood NEG (NEG) Urine Nitrite NEG (NEG) Urine Bilirubin NEG (NEG) Urine Urobilinogen NEG (NEG) Urine Leukocyte Esterase MODERATE (NEG) Urine WBC (Auto) 1-5 /hpf (0-5) Urine RBC (Auto) 0-4 /hpf (0-4) Urine Hyaline Casts (Auto) 1-5 /lpf (0-5) Urine Epithelial Cells (Auto) 20-30 /lpf (0-5) Urine Bacteria (Auto) NEG (NEG) Immature Granulocyte % (Auto) 0.3 % White Blood Count 11.89 K/uL (4.8-10.8) Red Blood Count 5.08 M/uL (4.2-5.4) 4.87 M/uL (4.2-5.4) Hemoglobin 14.7 g/dL (12.0-16.0) Hematocrit 44.1 % (37-47) Mean Corpuscular Volume 86.8 fL (80-100) 86.2 fL (80-100) Mean Corpuscular Hemoglobin 28.9 pg (25-34) 28.3 pg (25-34) Mean Corpuscular Hemoglobin Concent 33.3 g/dl (32-36) 32.9 g/dl (32-36) Platelet Count 285 K/uL (130-400) Mean Platelet Volume 10.4 fL (7.4-10.4) 10.4 fL (7.4-10.4) Neutrophils (%) (Auto) 70.0 % Lymphocytes (%) (Auto) 18.5 % Monocytes (%) (Auto) 7.5 % Eosinophils (%) (Auto) 3.1 % Basophils (%) (Auto) 0.6 % Neutrophils # (Auto) 8.33 K/uL (1.4-6.5) Lymphocytes # (Auto) 2.20 K/uL (1.2-3.4) Monocytes # (Auto) 0.89 K/uL (0.11-0.59) Eosinophils # (Auto) 0.37 K/uL (0-0.5) Basophils # (Auto) 0.07 K/uL (0-0.2) Immature Granulocyte # (Auto) 0.03 K/uL (0.00-0.02) Phosphorus Level 3.7 mg/dl (2.5-4.9) Magnesium Level 2.1 mg/dl (1.8-2.4) Direct Bilirubin 0.1 mg/dl (0-0.2) Prothrombin Time 12.8 SECONDS (9.0-12.0) Prothromb Time International Ratio 1.2 (0.9-1.1) Lipase 955 U/L (73-393) RDW Standard Deviation 48.2 fL (36.4-46.3) RDW Coefficient of Variation 15.0 % (11.5-14.5) Anion Gap 9.0 mmol/L (3-11) Est Creatinine Clear Calc Drug Dose 42.4 ml/min Estimated GFR () 52.0 Estimated GFR (Non- 44.8 BUN/Creatinine Ratio 18.2 (10-20) Calcium Level 8.7 mg/dl (8.5-10.1) Total Bilirubin 0.2 mg/dl (0.2-1) Aspartate Amino Transf (AST/SGOT) 14 U/L (15-37) Alanine Aminotransferase (ALT/SGPT) 22 U/L (12-78) Alkaline Phosphatase 163 U/L (45-117) Total Protein 6.9 gm/dl (6.4-8.2) Albumin 3.0 gm/dl (3.4-5.0) Globulin 3.9 gm/dl (2.5-4.0) Albumin/Globulin Ratio 0.8 (0.9-2) Date/Time Source Procedure Growth Status 12/01/17 16:48 Blood Blood Culture - Preliminary NO GROWTH TO DATE. Resulted Medical Emergencies . Who to Call and When: Medical Emergencies: If at any time you feel your situation is an emergency, please call 911 immediately. . Non-Emergent Contact Non-Emergency issues call your: Primary Care Provider, Technology Risk Intern Call Non-Emergent contact if: you have any medication questions . . "Provider Documentation" section prepared by Mika Adair. .
--- NOTE | 2017-12-03 11:38 | Discharge Summary ---
Discharge Summary Date of Service Dec 03, 2017. Discharge Summary Admission Date: Dec 01, 2017 at 12:54 Discharge Date: Dec 03, 2017 Discharge Disposition: Home Principal Diagnosis: Bactrim induced hyperkalemia secondary to treatment of pacemaker incision site infection Secondary Diagnoses/Problems: Paroxysmal Atrial Fibrillation; heart rate is ventricular paced acute kidney injury on chronic kidney disease elevated lipase Medication Reconciliation New Medications: Doxycycline Hyclate (Doxycycline Hyclate) 100 Mg Cap 100 MG PO BID for 14 Days, #28 CAP Nicotine (Nicoderm Cq) 21 Mg/24 Hr Dis 1 PATCH TD QAM for 30 Days, #30 PATCH Continued Medications: Amiodarone HCl (Amiodarone HCl) 200 Mg Tab 200 MG PO DAILY, TAB Furosemide (Lasix) 20 Mg Tab 20 MG PO DAILY PRN for Blood Pressure for swelling Metoprolol Succinate (Metoprolol Succinate ER) 25 Mg Tabcr 12.5 MG PO DAILY Omeprazole (Prilosec) 20 Mg Capcr 40 MG PO DAILY, CAP Ranitidine (Zantac) 300 Mg Tab 300 MG PO HS, TAB Discontinued Medications: Amlodipine Besylate (Amlodipine Besylate) 5 Mg Tab 5 MG PO DAILY Lisinopril (Zestril) 20 Mg Tab 10 MG PO DAILY Sulfa/Trimethoprim (Bactrim Ds 800MG/160MG) Tab 1 TAB PO BID, #20 TAB PRESCRIBED 11/23/2017, TAKE DIRECTED UNTIL GONE Warfarin Sod (Jantoven) 2 Mg Tab 1 MG PO DAILY, TAB TAKE 1/2 TABLET (1 MG) EVERY DAY OR OTHERWISE DIRECTED TO TAKE BY ANTICOAGULATION CLINIC/MD Admission Information HPI (per Admitting provider): This is a 72-year-old white female with significant past medical history of PAF , 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 She was recently seen in ED on 11/29/17 secondary to hyperkalemia found in outpatient setting, in ED K was noted to be 5.2. She presents today with potassium of 7.9. Her only complaint is paresthesias of hands and below knees 2 weeks, nausea, diarrhea 3 days resolved yesterday. She denies fever, chills, sweats, chest pain, shortness of breath, palpitations, emesis, abdominal pain. Of note she has recently been treated with Bactrim, initially single strength, for 2 week course postoperatively from pacemaker. She was off antibiotic for 2 weeks in which Bactrim was restarted at double strength secondary to continued pacemaker infection per Dr. De. In ED patient was given IV regular insulin 10 units , Kayexalate, calcium gluconate. She had no EKG changes. Lab work revealed leukocytosis 11.89, INR 1.2, BUN 18, creatinine 1.26, lipase 966. She is admitted for further evaluation and treatment of hyperkalemia. Physical Exam (per Admitting): General Appearance: WD/WN, no apparent distress, + obese Head: normocephalic, atraumatic Eyes: normal inspection, PERRL, sclerae normal ENT: normal ENT inspection, hearing grossly normal, pharynx normal, + pertinent finding (mild hoarseness) Neck: supple, no adenopathy, thyroid normal, no JVD Respiratory/Chest: chest non-tender, lungs clear, normal breath sounds, no respiratory distress, no accessory muscle use Cardiovascular: regular rate, rhythm, no edema, no gallop, no JVD, no murmur , normal peripheral pulses, + pertinent finding (+LACW Pacer incision with midline open wound. Around wound, no erythema or warmth. No drainage noted. She had dry dressing) Abdomen/GI: normal bowel sounds, non tender, soft, no organomegaly Back: normal inspection, no muscle spasm Extremities/Musculoskelatal: normal inspection, no calf tenderness, normal capillary refill, no pedal edema Neurologic/Psych: alert, normal mood/affect, oriented x 3 Skin: normal color, warm/dry, no rash Hospital Course Hospital Course and Discharge Plans Bactrim induced hyperkalemia secondary to treatment of pacemaker incision site infection History of Tachy-silvestre syndrome with pacemaker and placement was done Dr. De on 10/04/17 and there was with incision infection for which patient from on chronic Bactrim Outpatient Culture & Susceptibility 10/20/17 for pansensitive ENTEROBACTER CLOACAE COMPLEX (sensitive to Cefepime, Ciprofloxacin, Gentamicin, Meropenem) Patient was found to have Hyperkalemia secondary to Bactrim -In ED received IV regular insulin 10 units, calcium gluconate, Kayexalate -during hospital course so fair she has received additional Kayexalate, insulin , albuterol nebulizer and D5W with bicarb 150 at 100ml/hr as assessed by nephrology service -potassium levels went down from 7.9 to 5.2 to 5.7 to 4.1 to 4.6 to 4.1 to 4.5 -On admission medical team contacted Dr. De in regards for switching antibiotic from bactrim to doxycycline during the hospital stay -Blood cultures have been negative; patient has been afebrile on admission and continues to be afebrile on doxycycline -at this time, it is unclear whether pacer needs to be extracted -with the hyperkalemia controlled, patient prefers for outpatient pacemaker clinic appointment on 12/05/2017 2:00 PM Pacer Clinic [facility] rather than to be assessed further as inpatient for possible pacer extraction -will plan on discharging patient with doxycycline prescription and have close follow up with primary care doctor and pacemaker clinic -patient will need to be re-assessed by primary care doctor for hyperkalemia labs and when to resume lisinopril which can also also induce hyperkalemia and when to resume amlodipine because patient's blood pressure has been low normotensive to normal without blood pressure medications Paroxysmal Atrial Fibrillation; heart rate is ventricular paced -amiodarone, Metoprolol, and pacer for rate/rhythm control -Was taking 1mg coumadin daily and INR sub therapeutic -Was given 2mg daily starting on admission date, and then daily however INR remains 1.2 -given that it is unclear whether pacer needs to be extracted, will have patient hold off on further coumadin until follow up with pacer clinic Acute kidney injury on chronic kidney disease has received IV fluids during this admission acute kidney injury resolving HTN history however blood pressure was low normotensive without blood pressure medications -blood pressure improving today -can resume home dose Lasix -hold off amlodipine and lisinopril until follow up with primary care doctor -patient will need to be re-assessed by primary care doctor for hyperkalemia labs and when to resume lisinopril which can also also induce hyperkalemia and when to resume amlodipine because patient's blood pressure has been low normotensive to normal without blood pressure medications -continue metoprolol Chronic Diastolic CHF -continue metoprolol -Lisinopril on hold secondary to hyperkalemia and low normotension -can resume home dose Lasix Elevated Lipase -Patient is asymptomatic, no abdominal pain -monitor as outpatient GERD -asymptomatic -continue PPI, Zantac COPD Tobacco Abuse nicotine patch no respiratory exacerbations Discharge Instructions hold off amlodipine and lisinopril until follow up with primary care doctor patient will need to be re-assessed by primary care doctor for hyperkalemia labs and when to resume lisinopril which can also also induce hyperkalemia and when to resume amlodipine because patient's blood pressure has been low normotensive to normal without blood pressure medications 12/04/2017 3:00 PM Fly Esteves MD Internal Medicine [facility] given that it is unclear whether pacer needs to be extracted, will have patient hold off on further coumadin until follow up with pacer clinic 12/05/2017 2:00 PM Pacer Clinic [facility] 12/14/2017 1:15 PM [facility] 01/04/2018 1:00 PM Venu Olivera DO Internal Medicine [facility] Total time spent on discharge = 40 minutes This includes examination of the patient, discharge planning, medication reconciliation, and communication with other providers. Discharge Instructions see above
[2017-12-03 11:56] VITALS: BP 133/77; PULSE 62; TEMP 36.9; O2SAT 96
== END 2017-12-03 13:15 | disposition home or self-care (01) | DRG 641 ==
LOC: C.EDB 09:20 → C.2T 12:54 → ENRESERV 13:28
PROVIDERS: ADMIT Hospitalist; ATTEND Hospitalist
DX: E87.5 Hyperkalemia (principal); N17.9 Acute kidney failure, unspecified; I13.0 Hypertensive heart and chronic kidney disease with heart failure and stage 1 through stage 4 chronic kidney disease, or unspecified chronic kidney disease; I50.32 Chronic diastolic (congestive) heart failure; T36.8X5A Adverse effect of other systemic antibiotics, initial encounter; E87.6 Hypokalemia; I71.4 Abdominal aortic aneurysm, without rupture; I48.0 Paroxysmal atrial fibrillation; Z86.010 Personal history of colon polyps; J44.9 Chronic obstructive pulmonary disease, unspecified; K21.9 Gastro-esophageal reflux disease without esophagitis; F17.210 Nicotine dependence, cigarettes, uncomplicated; Z95.0 Presence of cardiac pacemaker; Y92.009 Unspecified place in unspecified non-institutional (private) residence as the place of occurrence of the external cause; N18.9 Chronic kidney disease, unspecified

== ENCOUNTER 2020-07-13 19:50 | Inpatient (IN) ==
--- OUTSIDE RECORDS SUMMARY | 2020-07-13 19:53 | External Medical Summary | Continuity of Care Document ---
:1945 Author Name Juan R Matthews, Provider Address Unavailable Unavailable , Care Team Providers Name Role Phone Unavailable Unavailable Unavailable PCP, UNKNOWN Unavailable Unavailable Assessments Assessed Problems:AfibHTN (hypertension)SnoringSmokerFamily history of malignant neoplasmFamily history of diabetes mellitus Problems Snoring (786.09) (R06.83) HTN (hypertension) (401.9) (I10) Afib (427.31) (I48.91) Allergies and Adverse Reactions Allergy history not documented Medications Amiodarone HCl - 200 MG Oral Tablet , M.DYimi Star t: 19-Oct-2017 Refills: 0 Warfarin Sodium 2 MG Oral Tablet; as Byron romeo Start: 19-Oct-2017 Refills: 0 Triamcinolone Acetonide 0.1 % External Ointment; as bertha pérez M.D. Start: 19-Oct-2017 Refills: 0 raNITIdine HCl 300 MG TABS; TAKE 1 TABLET DAILY DIRECTED. Byron Start: 19-Oct-2017 Refills: 0 Omeprazole 20 MG Oral Capsule Delayed Release; Take 1 tablet BID , M.DYimi Start: 19-Oct-2017 Refills: 5 Metoprolol Succinate ER 25 MG Oral Table t Extended Release 24 Hour; TAKE 1/2 TABLET DAILY. Byron Start: 19-Oct-2017 Refills: 0 100 Tablet Bottle Lisinopril 20 MG Oral Tablet; TAKE 1 TABLET DAILY. JustusDYimi Start: 19-Oct-2017 Refills: 0 15 Tablet Bottle Lactaid 3000 UNIT Oral Tablet; TAKE 1 TO 3 TABLETS WITH FIRST BITE OF DAIRY FOOD. Byron Start: 19-Oct-2017 Refills: 0 Ketoconazole 2 % External Shampoo; APPLY DIRECTED. Byron Start: 19-Oct-2017 Refills: 0 120 ML Bottle Furosemide 20 MG Oral Tablet; TAKE 1 TABLET DAILY NEEDED. Byron Start: 19-Oct-2017 Quantity: 90 Refills: 3 Clindagel 1 % External Gel; APPLY AND GE NTLY MASSAGE INTO AFFECTED AREA(S) TWICE DAILY. Byron Start: 19-Oct-2017 Refills: 0 75 ML Bottle Tessalon Perles 100 MG Oral Capsule; TAKE 1 CAPSULE 3 TIMES DAILY NEEDED. Clay.DYimi Start: 19-Oct-2017 Refills: 0 amLODIPine Besylate 5 MG Oral Tablet; TAKE 2 TABLETS DAILY. M.DYimi Start: 19-Oct-2017 Refills: 0 90 Tablet Bottle ProAir HFA 108 (90 Base) MCG/ACT Inhalat ion Aerosol Solution; INHALE 1 PUFF EVERY 4 HOURS NEEDED. M.DYimi Start: 19-Oct-2017 Refills: 0 8.5 GM Inhaler Procedures History of colonoscopy Status: Completed History of sigmoidectomy Status: Complet ed History of esophagogastroduodenoscopy St atus: Completed Immunizations Immunizations not documented Family History Father Family history of cardiac disorder (V17.49) (Z82.49) Status: Active Family history of diabetes mellitus (V18.0) (Z83.3) Status: Active Sister Family history of cardiac disorder (V17.49) (Z82.49) Status: Active Family history of diabetes mellitus (V18.0) (Z83.3) Status: Active Family history of malignant neoplasm (V16.9) (Z80.9) Status: Active Brother Family history of (799.9) (R99) Status: Active natural son Family history of gout (V18.19) (Z82.69) Status: Active Mother Family history of malignant neoplasm (V16.9) (Z80.9) Status: Active Plan of Treatment Planned Observations Planned Goals not documented Results No Known Results Results not documented
[2020-07-13] MEDS ORDERED: HYDROmorphone INJ 0.5 MG/0.5 ML SYR IV STA (19:58)
[2020-07-13] MEDS ORDERED: ONDANSETRON INJ 2 MG/ML 2 ML VIAL IV STA (19:58)
--- NOTE | 2020-07-13 20:04 | Emergency Department Note ---
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 She describes it as sharp. It started 2 days ago when she rolled in bed and felt a pop in her back. Her pain is worse when she moves. Today she went shopping but when she came home her back and leg hurt her so much that she could not walk and her son had to carry her in. She had some tingling intermittently of her toes but denies any numbness to the leg. She does not feel she has weakness other than from the pain. She denies any fecal urinary incontinence or saddle anesthesia. She denies fever, chest pain, abdominal pain, vomiting, or urinary symptoms. She did have some diarrhea 2 days ago. She does have a chronic cough and shortness of breath from her COPD. The symptoms are unchanged. Home Medications Medication Instructions Recorded Confirmed Type warfarin [Jantoven] See Rx Instructions .ROUTE .COMPLEX 12/12/17 07/13/20 History albuterol sulfate [Ventolin HFA] 1 - 2 puff INHALATION DIRECTED 07/13/20 07/13/20 History PRN amiodarone 200 mg PO DAILY 07/13/20 07/13/20 History amlodipine 2.5 mg PO QAM 07/13/20 07/13/20 History cyanocobalamin (vitamin B-12) 500 mcg PO DAILY 07/13/20 07/13/20 History [Vitamin B-12] famotidine 20 mg PO QAM 07/13/20 07/13/20 History fluticasone propionate [Flonase] 2 spray INTRANASAL DAILY PRN 07/13/20 07/13/20 History furosemide 20 mg PO QAM 07/13/20 07/13/20 History levothyroxine 50 mcg PO QAM 07/13/20 07/13/20 History metoprolol succinate 25 mg PO HS 07/13/20 07/13/20 History omeprazole 20 mg PO BID 07/13/20 07/13/20 History omeprazole 40 mg PO HS 07/13/20 07/13/20 History umeclidinium-vilanterol [Anoro 1 inh INHALATION BID 07/13/20 07/13/20 History Ellipta] Allergies Allergy/AdvReac Type Severity Reaction Status Date / Time sulfamethoxazole AdvReac Severe CAUSED Verified 07/13/20 21:53 [From Bactrim] KIDNEY PROBLEMS trimethoprim [From Bactrim] AdvReac Severe CAUSED Verified 07/13/20 21:53 KIDNEY PROBLEMS adhesive AdvReac Mild BLISTERS Verified 07/13/20 21:53 Past Med/Surg History Medical History Atrial fibrillation Diverticulosis Tachy-silvestre syndrome Social History Smoking Status: Current every day smoker Hx Alcohol Use: No Hx Substance Use: No Preferred Language: Citizen Of [place] Communication Ability: Effective Tester Regulator Required: No Beliefs That Will Affect Care: None Current Living Situation: Other Current Living Situation Comment: Grandson Feels Safe at Home: Yes Assistive Devices: Denture - Upper, Denture - Lower and Glasses Review of Systems See HPI for pertinent positives & negatives. and A total of 10 systems reviewed and were otherwise negative Physical Exam Vital Signs Vital Signs - 24 hr 07/13/20 20:01 Temperature 36.5 C Temperature Source Oral Pulse Rate 80 Pulse Rate [Apical] 80 Respiratory Rate 20 Respiratory Effort / Characteristics Non-Labored Spontaneous Respiratory Depth Normal Respiratory Pattern Regular Blood Pressure 142/71 H Blood Pressure [Right Arm] 142/71 H Blood Pressure Mean 94 Blood Pressure Mean [Right Arm] 94 Pulse Oximetry 97 Oxygen Delivery Method Room Air Sepsis Recent Fever Within 48 Hours No Sepsis New/Unexplained Change in Mental Status No Sepsis Action Taken by Nursing No Action Required Constitutional: Vital signs reviewed. Eyes: Pupils are equal round reactive to light. Conjunctiva are noninjected. ENT: Pharynx is clear without erythema or exudate. Mucous membranes are moist. Neck supple without meningeal signs. Respiratory: Clear to auscultation bilaterally. Breath sounds are equal bilaterally. Cardiovascular: Regular rate and rhythm. No rubs or gallops. GI: Soft, nondistended and nontender. Bowel sounds are present. Musculoskeletal: No peripheral edema. Mild calf tenderness. Left hip tenderness without deformity. No erythema or increased warmth. Integumentary: No cyanosis. or jaundice. Neurological: The patient is awake and alert. Sensation is intact throughout the lower extremities. Motor strength is 5 out of 5 in the left ankle. Cannot test approximately secondary to pain. Normal distal pulses bilaterally. Psychiatric: Normal affect. Not anxious appearing. Course Administered Medications Discontinued Medications Hydromorphone HCl (Hydromorphone Inj 0.5 Mg/0.5 Ml Syr) 0.5 mg IV NOW STA Stop: 07/13/20 19:59 Last Admin: 07/13/20 20:12 Dose: 0.5 mg Documented by: [id number] Ondansetron HCl (Ondansetron Inj 2 Mg/Ml 2 Ml Vial) 4 mg IV NOW STA Stop: 07/13/20 19:59 Last Admin: 07/13/20 20:12 Dose: 4 mg Documented by: [id number] Medical Decision Making Differential Diagnosis Lumbar disc disease, lumbar radiculopathy, pathologic fracture, DVT, strain Medical Records Attestation: I reviewed the patient's medical records. I did perform a limited focused review of portions of the patient's old chart on the electronic medical record. The patient has had no recent pertinent visits to this hospital. Home Medications Current Medication List: was personally reviewed by me Laboratory Data Attestation: I reviewed the patient's lab results. Result diagrams: 07/13/20 20:06 07/13/20 20:06 Lab Results 07/13/20 07/13/20 07/13/20 Range/Units 20:06 20:06 20:06 WBC 12.35 H (4.8-10.8) K/uL RBC 4.56 (4.2-5.4) M/uL Hgb 14.3 (12.0-16.0) g/dL Hct 42.2 (37-47) % MCV 92.5 (80-100) fL MCH 31.4 (25-34) pg MCHC 33.9 (32-36) g/dL RDW Std Deviation 50.3 H (36.4-46.3) fL RDW Coeff of Cindy 14.9 H (11.5-14.5) % Plt Count 299 (130-400) K/uL MPV 10.9 H (7.4-10.4) fL Immature Gran % (Auto) 0.2 % Neut % (Auto) 67.9 % Lymph % (Auto) 19.1 % [place] % (Auto) 10.7 % Eos % (Auto) 1.9 % Baso % (Auto) 0.2 % Neut # (Auto) 8.39 H (1.4-6.5) K/uL Lymph # (Auto) 2.36 (1.2-3.4) K/uL [place] # (Auto) 1.32 H (0.11-0.59) K/uL Eos # (Auto) 0.23 (0-0.5) K/uL Baso # (Auto) 0.03 (0-0.2) K/uL Immature Gran # (Auto) 0.02 (0.00-0.02) K/uL PT 23.1 H (9.0-12.0) Seconds INR 2.4 H (0.9-1.1) APTT 38.1 H (21.0-31.0) Seconds PTT Ratio 1.4 Sodium 141 (136-145) mmol/L Potassium 3.7 (3.5-5.1) mmol/L Chloride 110 H (98-107) mmol/L Carbon Dioxide 25 (21-32) mmol/L Anion Gap 6.0 (3-11) BUN 18 (7-18) mg/dl Creatinine 1.04 (0.6-1.2) mg/dl Est Cr Clr Drug Dosing 50.9 ml/min Est GFR ( Amer) 61.7 Est GFR (Non-Af Amer) 53.3 BUN/Creatinine Ratio 16.9 (10-20) Glucose 105 H (70-99) mg/dl Calcium 8.7 (8.5-10.1) mg/dl Total Bilirubin 0.3 (0.2-1) mg/dl AST 15 (15-37) U/L ALT 21 (12-78) U/L Alkaline Phosphatase 192 H (45-117) U/L Total Protein 7.1 (6.4-8.2) gm/dl Albumin 3.3 L (3.4-5.0) gm/dl Globulin 3.8 (2.5-4.0) gm/dl Albumin/Globulin Ratio 0.9 (0.9-2) COVID-19 Eval Order SARS-CoV-2 (PCR) (Negative) Influenza Type A (PCR) (Neg) Influenza Type B (PCR) (Neg) RSV (RT-PCR) (Neg) 07/13/20 07/13/20 Range/Units 21:27 21:27 WBC (4.8-10.8) K/uL RBC (4.2-5.4) M/uL Hgb (12.0-16.0) g/dL Hct (37-47) % MCV (80-100) fL MCH (25-34) pg MCHC (32-36) g/dL RDW Std Deviation (36.4-46.3) fL RDW Coeff of Cindy (11.5-14.5) % Plt Count (130-400) K/uL MPV (7.4-10.4) fL Immature Gran % (Auto) % Neut % (Auto) % Lymph % (Auto) % [place] % (Auto) % Eos % (Auto) % Baso % (Auto) % Neut # (Auto) (1.4-6.5) K/uL Lymph # (Auto) (1.2-3.4) K/uL [place] # (Auto) (0.11-0.59) K/uL Eos # (Auto) (0-0.5) K/uL Baso # (Auto) (0-0.2) K/uL Immature Gran # (Auto) (0.00-0.02) K/uL PT (9.0-12.0) Seconds INR (0.9-1.1) APTT (21.0-31.0) Seconds PTT Ratio Sodium (136-145) mmol/L Potassium (3.5-5.1) mmol/L Chloride (98-107) mmol/L Carbon Dioxide (21-32) mmol/L Anion Gap (3-11) BUN (7-18) mg/dl Creatinine (0.6-1.2) mg/dl Est Cr Clr Drug Dosing ml/min Est GFR ( Amer) Est GFR (Non-Af Amer) BUN/Creatinine Ratio (10-20) Glucose (70-99) mg/dl Calcium (8.5-10.1) mg/dl Total Bilirubin (0.2-1) mg/dl AST (15-37) U/L ALT (12-78) U/L Alkaline Phosphatase (45-117) U/L Total Protein (6.4-8.2) gm/dl Albumin (3.4-5.0) gm/dl Globulin (2.5-4.0) gm/dl Albumin/Globulin Ratio (0.9-2) COVID-19 Eval Order CovFluRsv at [facility] SARS-CoV-2 (PCR) NEGATIVE (Negative) Influenza Type A (PCR) Negative (Neg) Influenza Type B (PCR) Negative (Neg) RSV (RT-PCR) Negative (Neg) Imaging Data Attestation: I personally reviewed and interpreted this imaging study as follows: My Impression: X-ray of the lumbar spine demonstrates age-indeterminate compression deformity at L1 and L2. There is degenerative disc disease. X-ray of the pelvis and left hip per my interpretation shows no acute fracture or dislocation. Radiologist's Impression: Preliminary Findings Only See Final Report For Complete Findings US VENOUS LEFT LOWER EXTREMITY: No evidence of acute DVT. Radiologist: Melva Lora M.D. Study ready at 21:12 and initial results transmitted at 21:19 [facility] Narrative I did evaluate the patient as noted above. The patient is presenting with left- sided low back pain rating into her leg. She states it has been going on for 2 days but she has a prior history of lumbar disc disease. She denies any injury but states that today her pain got so bad she has been unable to walk since. IV access was established. I did place an order for continuous cardiac monitoring. The monitor showed normal sinus rhythm at a rate of 80 bpm. I did treat her with Dilaudid and Zofran IV. I did order and personally reviewed the images of the patient's left hip and pelvis and lumbar spine x-rays as described above. She has compression deformities at L1 and L2. No acute fracture dislocation in the pelvis or hip. I did order a urine analysis. I did order and review the patient's blood work as noted in the electronic medical record. Her white count is slightly elevated at 12.3. INR is 2.4. Electrolytes are unremarkable. I did order a Doppler ultrasound of the left lower extremity. I did review the images myself as well as the radiology report as described above. There is no evidence of DVT. I did reassess the patient. She states her pain is not significantly improved. She is, however, able to move her leg better. She is able to lift it off the bed. This does elicit significant pain. She is unable to go home due to the inability to ambulate. She declines any further pain medication at this time. I did order a screening Covid test. I did discuss the case with the hospitalist and manager wastewater. Impression & Plan Acute left lumbar radiculopathy, Ambulatory dysfunction, Intractable low back pain, Anticoagulated on warfarin Discharge Plan Visit Data Chief Complaint: Leg Injury/Pain Stated Complaint: LEG PAIN ED Provider: Avelino Rios Discharge Problem: Acute left lumbar radiculopathy, Ambulatory dysfunction, Intractable low back pain, Anticoagulated on warfarin Patient Disposition: Being Evaluated by Hospitalist Forms Stand Alone Forms: My [facility] Prescriptions Prescriptions: No Action warfarin [Jantoven] 2 mg Tablet See Rx Instructions .ROUTE .COMPLEX RF: 0 amiodarone 200 mg tablet 200 mg PO DAILY RF: 0 amlodipine 2.5 mg tablet 2.5 mg PO QAM RF: 0 omeprazole 40 mg capsule,delayed release(DR/EC) 40 mg PO HS RF: 0 famotidine 20 mg tablet 20 mg PO QAM RF: 0 levothyroxine 50 mcg tablet 50 mcg PO QAM RF: 0 omeprazole 20 mg capsule,delayed release(DR/EC) 20 mg PO BID RF: 0 furosemide 20 mg tablet 20 mg PO QAM RF: 0 metoprolol succinate 25 mg tablet extended release 24 hr 25 mg PO HS RF: 0 albuterol sulfate [Ventolin HFA] 90 mcg/actuation HFA aerosol inhaler 1 - 2 puff INHALATION DIRECTED PRN (Reason: Shortness Of Breath Or Wheezing) RF: 0 fluticasone propionate [Flonase] 50 mcg/actuation [place],Suspension 2 spray INTRANASAL DAILY PRN (Reason: Nasal Congestion) RF: 0 Anoro Ellipta 62.5-25 mcg/actuation blister with device 1 inh INHALATION BID RF: 0 cyanocobalamin (vitamin B-12) [Vitamin B-12] 500 mcg Tablet 500 mcg PO DAILY RF: 0 Referrals Referrals: Venu Olivera, [Primary Care Provider] -
[2020-07-13 20:23] LABS: Basophils # (auto) 0.03 K/uL (0-0.2); Basophils % (auto) 0.2 %; Eosinophils # (auto) 0.23 K/uL (0-0.5); Eosinophils % (auto) 1.9 %; Hematocrit (blood only) 42.2 % (37-47); Hemoglobin 14.3 g/dL (12.0-16.0); Immature Granulocytes # (auto) 0.02 K/uL (0.00-0.02); Immature Granulocytes % (auto) 0.2 %; Lymphocytes # (auto) 2.36 K/uL (1.2-3.4); Lymphocytes % (auto) 19.1 %; Mean Corpuscular Hemoglobin 31.4 pg (25-34); Mean Corpuscular Hgb Conc 33.9 g/dL (32-36); Mean Corpuscular Volume 92.5 fL (80-100); Mean Platelet Volume 10.9 fL (7.4-10.4); Monocytes # (auto) 1.32 K/uL (0.11-0.59); Monocytes % (auto) 10.7 %; Neutrophils # (auto) 8.39 K/uL (1.4-6.5); Neutrophils % (auto) 67.9 %; Platelet Count 299 K/uL (130-400); RDW Coefficient of Variation 14.9 % (11.5-14.5); RDW Standard Deviation 50.3 fL (36.4-46.3); Red Blood Count 4.56 M/uL (4.2-5.4); White Blood Count 12.35 K/uL (4.8-10.8)
[2020-07-13 20:36] LABS: INR 2.4 (0.9-1.1); Partial Thromboplastin Ratio 1.4; Partial Thromboplastin Time 38.1 Seconds (21.0-31.0); Prothrombin Time 23.1 Seconds (9.0-12.0)
[2020-07-13 20:47] LABS: Albumin Level 3.3 gm/dl (3.4-5.0); BUN Creatinine Ratio 16.9 (10-20); Calcium 8.7 mg/dl (8.5-10.1); Creatinine Clr Calc Pharmacy 50.9 ml/min; Est GFR (African American) 61.7; Est GFR (Non-African American) 53.3; Potassium 3.7 mmol/L (3.5-5.1)
[2020-07-13 20:49] LABS: Albumin Globulin Ratio 0.9 (0.9-2); Bilirubin,Total 0.3 mg/dl (0.2-1); Globulin 3.8 gm/dl (2.5-4.0); Total Protein 7.1 gm/dl (6.4-8.2)
[2020-07-13 22:12] LABS: Influenza A virus by PCR Negative (Neg); Influenza B virus by PCR Negative (Neg); RSV by PCR Negative (Neg); SARS CoV2 RNA(COVID-19) InHosp NEGATIVE (Negative)
[2020-07-13] MEDS ORDERED: HYDROmorphone INJ 0.5 MG/0.5 ML SYR IV PRN (23:33)
[2020-07-13] MEDS ORDERED: ACETAMINOPHEN 325 MG TAB PO PRN (23:33)
[2020-07-13] MEDS ORDERED: ALBUTEROL HFA 8 GM INHALER INH PRN (23:33)
[2020-07-13] MEDS ORDERED: FLUTICASONE PROPIONATE NA SPR 16 GM BTL PRN (23:33)
[2020-07-13] MEDS ORDERED: ONDANSETRON INJ 2 MG/ML 2 ML VIAL IV PRN (23:33)
[2020-07-13] MEDS ORDERED: POLYETHYLENE (MIRALAX) 17 GM PACK PO PRN (23:33)
[2020-07-14] MEDS: oxyCODONE HCL IR 5 MG TAB (IMMEDIATE RELEASE) PO PRN (00:03)
[2020-07-14] MEDS ORDERED: PANTOprazole 40 MG TAB PO SCH (00:15)
[2020-07-14] MEDS ORDERED: Nursing to Pharmacy Communication SCH (00:15)
[2020-07-14] MEDS ORDERED: dexAMETHasone 6 MG in SYRINGE 0 ML IV ONE (00:15)
[2020-07-14] MEDS: OMEPRAZOLE 20 MG CAPCR PO SCH ×3 (00:35→21:26)
[2020-07-14] MEDS: METOPROLOL SUCC 25MG EXT REL TAB PO SCH ×2 (00:36→21:27)
[2020-07-14] MEDS: AMIODARONE 200 MG TAB PO SCH ×2 (00:36→21:27)
--- NOTE | 2020-07-14 00:47 | History and Physical Report ---
DATE OF ADMISSION: 07/13/2020 CHIEF COMPLAINT: Severe back pain. HISTORY OF PRESENT ILLNESS: A 75-year-old female with past medical history significant for prediabetes, hypothyroidism, COPD, atrial fibrillation, tachybrady syndrome, diastolic dysfunction, paroxysmal atrial fibrillation, GERD, diverticulosis of colon, chronic kidney disease stage III, general osteoarthrosis, sciatica, carpal tunnel syndrome, family history of colon cancer, status post pacemaker, who lives with her grandson, comes with severe back pain. The patient states she has chronic back pain with sciatica, but 4 days ago it got severe. Two days ago, she went for shopping and when she came back she could not ambulate. She rested whole day yesterday and again she went for shopping for a couple of hours today. When she came home, she could not walk. Her grandson had to lift her up, help her into the house. That is the reason she came in. She is saying she could not put any weight on the leg because of severe pain in the left leg. No incontinence of urine or stool. Denies any other complaints. No headache, no blurred vision, no earache, no runny nose, no sore throat, no cough. She has chronic COPD cough. She gets on and off some shortness of breath from her COPD. Denies any chest pain. Appetite is okay. No dysphagia, no nausea, no vomiting, no abdominal pain. Normal bowel and bladder movements. ALLERGIES: BACTRIM. PAST MEDICAL HISTORY: As mentioned above. PAST SURGICAL HISTORY: Colonoscopy, EGDs, sigmoid colectomy, cataracts, sigmoidoscopy. MEDICATIONS: The patient is on albuterol 2 puffs inhalation p.r.n., amiodarone 200 mg p.o. daily, amlodipine 2.5 mg p.o. a.m., vitamin B12 500 mcg p.o. daily, famotidine 20 mg p.o. a.m., Flonase 2 sprays intranasal daily p.r.n., Lasix 20 mg p.o. a.m., levothyroxine 50 mcg p.o. a.m., metoprolol succinate 25 mg p.o. at bedtime, omeprazole 40 mg p.o. at bedtime, Anoro Ellipta 1 inhalation b.i.d., Coumadin as directed. FAMILY HISTORY: Significant for mother had colon cancer, sister has skin cancer, mother has heart attack. SOCIAL HISTORY: Lives with her grandson. Smokes half pack a day for last 50 years. No alcohol use, no drug use. REVIEW OF SYSTEMS: As per HPI. Rest of the review of systems negative. PHYSICAL EXAMINATION: GENERAL: The patient is of moderate build, not in acute distress. VITAL SIGNS: Temperature 36.5, pulse 68, respiratory rate 22, blood pressure 121/88, oxygen 94% on room air. HEENT: Pupils are equal, round, and reactive to light. Oral mucosa moist. NECK: No JVD, no neck masses. CARDIOVASCULAR: S1, S2 heard. Regular rate and rhythm, no murmur, no gallop. RESPIRATORY SYSTEM: Normal AP diameter. No accessory muscle use. No wheezing, no crackles. ABDOMEN: Soft, bowel sounds present, nontender. No distention. CENTRAL NERVOUS SYSTEM: Alert and oriented. Speech clear, no facial droop. Obeys commands. Moves extremities. EXTREMITIES: No edema, no erythema. MUSCULOSKELETAL: Painful movements of the left lower extremity. LABORATORY DATA: WBC 12.3, hemoglobin 14.3, hematocrit 42.1, platelets 299. PT 23.1, INR 2.4, APTT 38.1. Sodium 141, potassium 3.7, chloride 110, bicarbonate 25, BUN 18, creatinine 1.04, serum glucose 105, calcium 8.7, total bilirubin 0.3, AST 15, ALT 21, alkaline phosphatase 192. SARS-CoV-2 PCR negative. Influenza A and B PCR negative. RSV PCR negative. ASSESSMENT AND PLAN: This is a 75-year-old female who presents with severe back pain. 1. Severe back pain, ambulatory dysfunction: Imaging studies of lumbar spine x-ray and pelvis x-ray done. Await the results. Venous Doppler studies done. We will follow the results. The patient has history of sciatica. We will control pain with IV Dilaudid and p.o. oxycodone p.r.n. We will give a dose of Decadron. Admit to medical floor. Consult orthopedics in a.m. for further recommendations. 2. History of atrial fibrillation, tachybrady syndrome: Status post pacemaker, on Coumadin. INR is therapeutic at 2.4. We will follow the PT/INR. 3. History of chronic obstructive pulmonary disease: Currently not in exacerbation. Continue her home inhalers, currently stable. 4. History of hypothyroidism: Continue levothyroxine. 5. History of hypertension: Continue amlodipine, Toprol-XL. We will monitor the blood pressure. 6. Gastroesophageal reflux disease: On Pepcid and omeprazole. 7. Chronic diastolic congestive heart failure: On Toprol-XL and Lasix. We will monitor. 8. Prediabetes: Follow hemoglobin A1c levels. 9. Chronic kidney disease stage III: Baseline creatinine around 0.9 to 1, presently with creatinine of 1. We will follow the labs. 10. Deep venous thrombosis prophylaxis: On Coumadin. Follow PT/INR. DISPOSITION: Admit to medical floor. PT, OT prior to discharge. Social service to help with discharge planning. Level 1 full code. MTDD
[2020-07-14 04:09] LABS: Appearance Urine Cloudy (Clear); Bacteria Urine Automated 4+ (Negative); Bilirubin Urine Negative (Negative); Blood Urine Trace (Negative); Color Urine Yellow; Epithelial Cell Urine Auto >30 /lpf (0-5); Glucose Urine UA Negative (Negative); Ketones Urine Trace (Negative); Leukocyte Esterase Urine 2+ (Negative); Nitrite Urine Positive (Negative); Protein Urine Negative (Negative); Specific Gravity Urine 1.024 (1.000-1.030); Urobilinogen Urine Negative (Negative); WBC Urine Automated >30 /hpf (0-5)
[2020-07-14] MEDS: LEVOTHYROXINE SODIUM 50 MCG TABLET PO SCH (05:44)
[2020-07-14 06:01] LABS: Basophils # (auto) 0.01 K/uL (0-0.2); Basophils % (auto) 0.1 %; Eosinophils # (auto) 0.03 K/uL (0-0.5); Eosinophils % (auto) 0.2 %; Hematocrit (blood only) 42.4 % (37-47); Hemoglobin 13.7 g/dL (12.0-16.0); Immature Granulocytes # (auto) 0.04 K/uL (0.00-0.02); Immature Granulocytes % (auto) 0.3 %; Lymphocytes # (auto) 1.04 K/uL (1.2-3.4); Lymphocytes % (auto) 8.6 %; Mean Corpuscular Hemoglobin 30.4 pg (25-34); Mean Corpuscular Hgb Conc 32.3 g/dL (32-36); Monocytes # (auto) 0.17 K/uL (0.11-0.59); Monocytes % (auto) 1.4 %; Neutrophils # (auto) 10.75 K/uL (1.4-6.5); Neutrophils % (auto) 89.4 %; Platelet Count 265 K/uL (130-400); RDW Standard Deviation 51.7 fL (36.4-46.3); Red Blood Count 4.51 M/uL (4.2-5.4); White Blood Count 12.04 K/uL (4.8-10.8)
[2020-07-14 06:29] LABS: INR 2.5 (0.9-1.1)
[2020-07-14 06:38] LABS: BUN Creatinine Ratio 16.5 (10-20); Calcium 8.4 mg/dl (8.5-10.1); Creatinine Clr Calc Pharmacy 52.4 ml/min; Est GFR (African American) 65.5; Est GFR (Non-African American) 56.5; Magnesium 2.3 mg/dl (1.8-2.4); Potassium 4.9 mmol/L (3.5-5.1)
[2020-07-14 06:40] LABS: Estimated Average Glucose 128 mg/dl; Hemoglobin A1C 6.1 % (4.5-5.6)
--- NOTE | 2020-07-14 06:50 | Ultrasound Report ---
US venous doppler LE LT CLINICAL HISTORY: Left leg pain COMPARISON STUDY: No previous studies for comparison. FINDINGS: Real-time and color flow Doppler imaging were performed. Flow was seen within the femoral, popliteal and calf veins with no intraluminal thrombus demonstrated. The saphenous vein is patent. IMPRESSION: No evidence of left lower extremity DVT. ACT 112: Negative or not required by law. Electronically signed by: Vince Crane M.D. 07/14/2020 6:49 AM
--- NOTE | 2020-07-14 07:54 | XRay Report ---
LUMBAR SPINE 3 VIEWS CLINICAL HISTORY: Atraumatic low back pain. FINDINGS: 3 views of the lumbar spine are correlated with abdominal CT dated 06/10/2015. The skeletal s tructures are osteopenic. There is no radiographic evidence of acute fracture or malalignment. There is minimal anterolisthesis at L4-L5. Alignment is otherwise preserved. Anterior and lateral marginal osteophytes are seen throughout. The transverse and spinous processes appear intact. Advanced facet a rthropathy is seen in the mid to lower lumbar region. There is mild multilevel degenerative disc spac e narrowing with endplate sclerosis seen at L1-L2. The visualized bony pelvis appears intact. Surgica l clips and suture material project over the pelvis. No bowel obstruction is seen. There is moderate colonic fecal retention. A calcified splenic artery aneurysm is again seen in the left upper quadrant measuring up to 1.4 cm. IMPRESSION: 1. No acute bony abnormality is seen involving the lumbar spine. 2. Osteopenia and spondylotic change as above. Electronically signed by: Mayank Calvin M.D. 07/14/2020 7:53 AM
--- NOTE | 2020-07-14 07:54 | XRay Report ---
SINGLE VIEW PELVIS; 2 VIEWS LEFT HIP CLINICAL HISTORY: Atraumatic left hip pain. FINDINGS: 2 AP views of the pelvis with AP and frog-leg views of the left hip are correlated with pel jennifer CT dated 06/10/2015. The skeletal structures are osteopenic. There is no radiographic evidence of a cute fracture involving the hips or bony pelvis. Minimal degenerative joint space narrowing is seen i n the hips. Mild sclerosis is noted in the sacroiliac joints. Lumbosacral spondylosis is partially im aged. Large enthesophytes arise from the anterior superior iliac spines. There is a nonobstructed bow el gas pattern. Moderate fecal retention is seen throughout the colon. Surgical clips and suture mate rial project over the pelvis. The overlying soft tissues are normal as visualized. IMPRESSION: No acute bony abnormality is identified. Electronically signed by: Mayank Calvin M.D. 07/14/2020 7:53 AM
[2020-07-14] MEDS: amLODIPine BESYLATE 5 MG TAB PO SCH (08:16)
[2020-07-14] MEDS: FAMOTIDINE 20 MG TAB PO SCH (08:16)
[2020-07-14] MEDS: FUROSEMIDE 20 MG TAB PO SCH (08:16)
[2020-07-14] MEDS: CYANOCOBALAMIN 500 MCG TABLET (VITAMIN B-12) PO SCH (08:17)
[2020-07-14] MEDS: UMECLIDINIUM/VILANTEROL 62.5/25MCG 7 PUFFS/INHALER INH SCH (08:49)
[2020-07-14] MEDS ORDERED: UMECLIDINIUM/VILANTEROL 62.5/25MCG 7 PUFFS/INHALER INH SCH (09:00)
[2020-07-14] MEDS ORDERED: AMIODARONE 200 MG TAB PO SCH (09:00)
--- NOTE | 2020-07-14 11:06 | Consultation ---
Date of Consultation July 14, 2020 Assessment & Plan (1) Acute left lumbar radiculopathy: X-rays show a spondylolisthesis of L4-5. This certainly could be part of her left lower extremity pain acute. We do need further imaging though. Ideally we would get an MRI but she has a pacemaker therefore unable to obtain this study. Therefore we will pursue CT scan without contrast of the lumbar spine. We will make further recommendations based upon CT scan review. All questions were answered in detail. History of Present Illness This is a 75-year-old female that we are asked to see in consultation regarding acute left lower extremity pain. Symptoms started 5 days ago without specific accident, trauma, fall. A few days prior she did quite a bit of ambulating with her cane to do some shopping. This was uneventful. Normally she ambulates independently. Denies bowel or bladder dysfunction. Denies perineal numbness. Right leg is asymptomatic. Pain involves left lumbar area rating down the left groin, anterior lateral and posterior thigh, posterior calf to her foot. She has been taking ibuprofen only for pain control. Attending Physician: Aj Forman MD Allergies Allergy/AdvReac Type Severity Reaction Status Date / Time sulfamethoxazole AdvReac Severe CAUSED Verified 07/13/20 21:53 [From Bactrim] KIDNEY PROBLEMS trimethoprim [From Bactrim] AdvReac Severe CAUSED Verified 07/13/20 21:53 KIDNEY PROBLEMS adhesive AdvReac Mild BLISTERS Verified 07/13/20 21:53 Home Medications Medication Instructions Recorded Confirmed Type warfarin [Jantoven] See Rx Instructions .ROUTE .COMPLEX 12/12/17 07/13/20 History albuterol sulfate [Ventolin HFA] 1 - 2 puff INHALATION DIRECTED 07/13/20 07/13/20 History PRN amiodarone 200 mg PO HS 07/13/20 07/14/20 History amlodipine 2.5 mg PO QAM 07/13/20 07/13/20 History cyanocobalamin (vitamin B-12) 500 mcg PO DAILY 07/13/20 07/13/20 History [Vitamin B-12] famotidine 20 mg PO QAM 07/13/20 07/13/20 History fluticasone propionate [Flonase] 2 spray INTRANASAL DAILY PRN 07/13/20 07/13/20 History furosemide 20 mg PO QAM 07/13/20 07/13/20 History levothyroxine 50 mcg PO QAM 07/13/20 07/13/20 History metoprolol succinate 25 mg PO HS 07/13/20 07/13/20 History omeprazole 20 mg PO BID 07/13/20 07/13/20 History umeclidinium-vilanterol [Anoro 1 inh INHALATION DAILY 07/13/20 07/14/20 History Ellipta] Patient History Medical History Atrial fibrillation Diverticulosis Tachy-silvestre syndrome Social History Smoking Status: Current every day smoker Cigarettes Per Day: 10; Second Hand Exposure: Yes; Do You Dip or Chew Tobacco: No; Hx Alcohol Use: No Hx Substance Use: No Preferred Language: Turkmen Communication Ability: Effective Wire Communications Engineer Required: No Beliefs That Will Affect Care: None marital status: Current Living Situation: Alone and Family Current Living Situation Comment: Grandson and Son Other Information That Helps Us Care for You: No Feels Safe at Home: Yes Safety Concerns: Feels Safe At This Time Assistive Devices: Walker Review of Systems Review of Systems: All systems reviewed & are unremarkable except as noted in HPI & below Physical Exam Physical Exam: She is lying in bed in room 307. She is alert and oriented x3 no acute distress Cooperative with exam Tension sign on the left reproduces back pain only. Negative contralateral straight leg raise. She has positive left logroll. Negative on the right. Motor testing reveals breakaway weakness of the left EHL, hamstring, quadricep. Otherwise strength is intact bilaterally. In general left lower extremity does appear to be more edematous than right lower extremity. Constitutional: WD/WN, vitals as above Eyes: normal visual hardy by confrontation ENMT: external ear and nose normal, oropharynx normal Neck: normal visual inspection Respiratory: normal respiratory effort Cardiovascular: Extremities: normal capillary refill Chest (Breasts): Chest: normal inspection of chest Gastrointestinal (Abdomen): Inspection/Auscultation: abdomen normal to inspection Musculoskeletal: Extremities: + limited ROM of extremities Hip: + log roll test positive Skin: no rashes, warm and dry Neurologic: normal touch/pain/proprioception and moves all extremities Psychiatric: A+Ox3, euthymic affect Results & Data ([facility]) Vital Signs (Past 12 Hours) Vital Signs Temp Pulse Pulse Resp BP Pulse Ox 07/14/20 07:41 36.6 C 64 16 109/69 94 07/14/20 00:34 63 112/65 07/13/20 23:41 36.5 C 65 18 131/76 96
--- NOTE | 2020-07-14 15:21 | Magnetic Resonance Report ---
MRI OF THE LUMBAR SPINE WITHOUT IV CONTRAST CLINICAL HISTORY: Low back pain. Left lower extremity radiculopathy. COMPARISON STUDY: Radiographs of the lumbar spine dated 07/13/2020. Abdominal CT dated 06/10/2015. TECHNIQUE: MRI of the lumbar spine is performed utilizing various T1 and T2-weighted sequences in the axial and sagittal planes. IV contrast was not administered for this examination. FINDINGS: Lumbar spine: Marrow signal intensity is mildly heterogeneous. Vertebral body height and alignment ar e maintained throughout the lumbar spine. Tiny anterior osteophytes are seen throughout. The transver se and spinous processes appear intact. There is no evidence of spondylolysis. No destructive bony le mini is seen. Intervertebral discs: Degenerative disc desiccation and mild loss of height is seen throughout the cinda mbar spine. Loss of height is greatest at L1-L2. Spinal cord: The visualized spinal cord is normal in morphology and signal intensity. The conus medul bandar terminates at the L1-L2 interspace. The nerve roots of the cauda equina are normal in morpholog y. L1-L2: There is mild left lateral disc bulge. This contributes to mild subarticular stenosis and may abut the exiting left L1 nerve root. There is no acquired compromise of the central canal. The neural foramina are patent. L2-L3: There is minimal disc bulge with annular fissure. The central canal is clear, as are the neura l foramina. L3-L4: There is mild posterior disc bulge. In conjunction with hypertrophy of the ligamentum flavum t here is mild acquired compromise of the central canal at this level. The minimum AP diameter measures 7.5 mm. There is mild bilateral subarticular stenosis. Facet arthropathy is of no consequence. The n eural foramina are patent. L4-L5: There is minimal posterior disc bulge. In conjunction with hypertrophy of the ligamentum flavu m there is moderate central canal stenosis at this level with a minimum AP diameter of 5 mm. The disc bulge abuts the transiting nerve roots. Facet arthropathy is of no consequence. The neural foramina are patent. L5-S1: Mild facet arthropathy is of no consequence. The central canal and neural foramina are patent. Sacrum: The visualized sacrum is normal in morphology and signal intensity. Soft tissues: The paraspinous soft tissues are normal in appearance. The visualized retroperitoneal s tructures are grossly unremarkable but incompletely assessed. IMPRESSION: 1. There is moderate central canal stenosis at L4-L5 as detailed above. 2. Mild spondylotic change is seen at the remaining lumbar levels. See discussion for detailed level by level analysis. 3. No destructive bony process is identified. Dictated: 07/14/2020 2:50 PM Transcribed: 07/14/2020 3:14 PM Priscilla [id number] Marie Electronically signed by: Mayank Calvin M.D. 07/14/2020 3:20 PM
[2020-07-14] MEDS: WARFARIN SOD 2 MG TAB PO SCH (15:49)
[2020-07-14] MEDS ORDERED: dexAMETHasone 4 MG TAB PO ONE (17:30)
--- NOTE | 2020-07-14 18:11 | Hospitalist Progress Note ---
Date of Service July 14, 2020 Assessment & Plan (1) Ambulatory dysfunction: (2) Acute left lumbar radiculopathy: (3) Intractable low back pain: Present on admission with severe back pain radiated to left lower extremity MRI lumbar spine ordered by ortho, pt just had done Doppler of LLE obtained on admission, no evidence of DVT Continue pain control w/ opioids, also- received steroid in ED, will give decadron now again as pt is somewhat uncomfortable from MRI, will also provide lidoacine patch Ortho consulted PT/OT eval UTI Urine cx grew Ecoli on Rocephin IV daily started on 07/15 Atrial fibrillation Tachybrady syndrome Status post pacemaker Continue Toprol Continue Coumadin, INR is therapeutic Follow up with the [facility] History of chronic obstructive pulmonary disease: Continue her home inhalers Currently stable. History of hypothyroidism: Continue levothyroxine. Hypertension: Continue amlodipine and Toprol-XL. Gastroesophageal reflux disease: Continue pepcid and omeprazole. Chronic diastolic congestive heart failure: Continue Toprol-XL and Lasix. DVT px On Coumadin Dispo: depends on ortho eval, PT/OT Admission and Anticipated Discharge Date Admission Date: July 13, 2020 Subjective Pt was seen and examined for follow up back pain and left leg pain Lying in bed in no acute distress but reports back and L leg discomfort She just underwent MRI Denies any chest pain, palpitation, dizziness, dysuria and fever Review of Systems Review of Systems: All systems reviewed & are unremarkable except as noted in HPI & below Constitutional: no fever and no chills Respiratory: no cough and no dyspnea Cardiovascular: no chest pain and no palpitations Gastrointestinal: no abdominal pain, no nausea and no vomiting Musculoskeletal: + back pain (radiating to LLE) Physical Exam Physical Exam: GENERAL: The patient is of moderate build, not in acute distress. HEENT: NC/AT, Pupils are equal, round, and reactive to light. Oral mucosa moist. NECK: No JVD, no neck masses. CARDIOVASCULAR: S1, S2 heard. Regular rate and rhythm, no murmur, no gallop. RESPIRATORY SYSTEM: Normal AP diameter. No accessory muscle use. No wheezing, no crackles. ABDOMEN: Soft, bowel sounds present, nontender. No distention. NEURO: Alert and oriented and answering questions appropriately, Speech clear, no facial droop. Moves extremities. EXTREMITIES: No edema, no erythema. MUSCULOSKELETAL: Painful movements of the left lower extremity. Results & Data Results & Data ([facility]) Vital Signs (Past 12 Hours) Vital Signs Temp Pulse Resp BP Pulse Ox 07/14/20 07:41 36.6 C 64 16 109/69 94 Laboratory Results 07/14/20 07/14/20 07/14/20 Range/Units 05:30 05:30 05:30 WBC 12.04 H (4.8-10.8) K/uL RBC 4.51 (4.2-5.4) M/uL Hgb 13.7 (12.0-16.0) g/dL Hct 42.4 (37-47) % MCV 94.0 (80-100) fL MCH 30.4 (25-34) pg MCHC 32.3 (32-36) g/dL RDW Std Deviation 51.7 H (36.4-46.3) fL RDW Coeff of Cindy 15.0 H (11.5-14.5) % Plt Count 265 (130-400) K/uL MPV 11.0 H (7.4-10.4) fL Immature Gran % (Auto) 0.3 % Neut % (Auto) 89.4 % Lymph % (Auto) 8.6 % Meriwether % (Auto) 1.4 % Eos % (Auto) 0.2 % Baso % (Auto) 0.1 % Neut # (Auto) 10.75 H (1.4-6.5) K/uL Lymph # (Auto) 1.04 L (1.2-3.4) K/uL Meriwether # (Auto) 0.17 (0.11-0.59) K/uL Eos # (Auto) 0.03 (0-0.5) K/uL Baso # (Auto) 0.01 (0-0.2) K/uL Immature Gran # (Auto) 0.04 H (0.00-0.02) K/uL PT (9.0-12.0) Seconds INR (0.9-1.1) APTT (21.0-31.0) Seconds PTT Ratio Sodium 140 (136-145) mmol/L Potassium 4.9 D (3.5-5.1) mmol/L Chloride 110 H (98-107) mmol/L Carbon Dioxide 27 (21-32) mmol/L Anion Gap 3.0 (3-11) BUN 16 (7-18) mg/dl Creatinine 0.99 (0.6-1.2) mg/dl Est Cr Clr Drug Dosing 52.4 ml/min Est GFR ( Amer) 65.5 Est GFR (Non-Af Amer) 56.5 BUN/Creatinine Ratio 16.5 (10-20) Glucose 145 H (70-99) mg/dl Estimat Average Glucose 128 mg/dl Hemoglobin A1c 6.1 H (4.5-5.6) % Calcium 8.4 L (8.5-10.1) mg/dl Magnesium 2.3 (1.8-2.4) mg/dl Total Bilirubin (0.2-1) mg/dl AST (15-37) U/L ALT (12-78) U/L Alkaline Phosphatase (45-117) U/L Total Protein (6.4-8.2) gm/dl Albumin (3.4-5.0) gm/dl Globulin (2.5-4.0) gm/dl Albumin/Globulin Ratio (0.9-2) Urine Color Urine Appearance (Clear) Urine pH (4.5-7.5) Ur Specific [place] (1.000-1.030) Urine Protein (Negative) Urine Glucose (UA) (Negative) Urine Ketones (Negative) Urine Blood (Negative) Urine Nitrite (Negative) Urine Bilirubin (Negative) Urine Urobilinogen (Negative) Ur Leukocyte Esterase (Negative) Urine WBC (Auto) (0-5) /hpf Urine RBC (Auto) (0-4) /hpf U Hyaline Cast (Auto) (0-5) /lpf U Epithel Cells (Auto) (0-5) /lpf Urine Bacteria (Auto) (Negative) COVID-19 Eval Order SARS-CoV-2 (PCR) (Negative) Influenza Type A (PCR) (Neg) Influenza Type B (PCR) (Neg) RSV (RT-PCR) (Neg) 07/14/20 07/14/20 07/13/20 Range/Units 05:30 03:50 21:27 WBC (4.8-10.8) K/uL RBC (4.2-5.4) M/uL Hgb (12.0-16.0) g/dL Hct (37-47) % MCV (80-100) fL MCH (25-34) pg MCHC (32-36) g/dL RDW Std Deviation (36.4-46.3) fL RDW Coeff of Cindy (11.5-14.5) % Plt Count (130-400) K/uL MPV (7.4-10.4) fL Immature Gran % (Auto) % Neut % (Auto) % Lymph % (Auto) % Meriwether % (Auto) % Eos % (Auto) % Baso % (Auto) % Neut # (Auto) (1.4-6.5) K/uL Lymph # (Auto) (1.2-3.4) K/uL [place] # (Auto) (0.11-0.59) K/uL Eos # (Auto) (0-0.5) K/uL Baso # (Auto) (0-0.2) K/uL Immature Gran # (Auto) (0.00-0.02) K/uL PT 24.0 H (9.0-12.0) Seconds INR 2.5 H (0.9-1.1) APTT (21.0-31.0) Seconds PTT Ratio Sodium (136-145) mmol/L Potassium (3.5-5.1) mmol/L Chloride (98-107) mmol/L Carbon Dioxide (21-32) mmol/L Anion Gap (3-11) BUN (7-18) mg/dl Creatinine (0.6-1.2) mg/dl Est Cr Clr Drug Dosing ml/min Est GFR ( Amer) Est GFR (Non-Af Amer) BUN/Creatinine Ratio (10-20) Glucose (70-99) mg/dl Estimat Average Glucose mg/dl Hemoglobin A1c (4.5-5.6) % Calcium (8.5-10.1) mg/dl Magnesium (1.8-2.4) mg/dl Total Bilirubin (0.2-1) mg/dl AST (15-37) U/L ALT (12-78) U/L Alkaline Phosphatase (45-117) U/L Total Protein (6.4-8.2) gm/dl Albumin (3.4-5.0) gm/dl Globulin (2.5-4.0) gm/dl Albumin/Globulin Ratio (0.9-2) Urine Color Yellow Urine Appearance Cloudy A (Clear) Urine pH 5.0 (4.5-7.5) Ur Specific [place] 1.024 (1.000-1.030) Urine Protein Negative (Negative) Urine Glucose (UA) Negative (Negative) Urine Ketones Trace H (Negative) Urine Blood Trace H (Negative) Urine Nitrite Positive A (Negative) Urine Bilirubin Negative (Negative) Urine Urobilinogen Negative (Negative) Ur Leukocyte Esterase 2+ H (Negative) Urine WBC (Auto) >30 H (0-5) /hpf Urine RBC (Auto) 5-10 H (0-4) /hpf U Hyaline Cast (Auto) 5-10 H (0-5) /lpf U Epithel Cells (Auto) >30 H (0-5) /lpf Urine Bacteria (Auto) 4+ H (Negative) COVID-19 Eval Order SARS-CoV-2 (PCR) NEGATIVE (Negative) Influenza Type A (PCR) Negative (Neg) Influenza Type B (PCR) Negative (Neg) RSV (RT-PCR) Negative (Neg) 07/13/20 07/13/20 07/13/20 Range/Units 21:27 20:06 20:06 WBC 12.35 H (4.8-10.8) K/uL RBC 4.56 (4.2-5.4) M/uL Hgb 14.3 (12.0-16.0) g/dL Hct 42.2 (37-47) % MCV 92.5 (80-100) fL MCH 31.4 (25-34) pg MCHC 33.9 (32-36) g/dL RDW Std Deviation 50.3 H (36.4-46.3) fL RDW Coeff of Cindy 14.9 H (11.5-14.5) % Plt Count 299 (130-400) K/uL MPV 10.9 H (7.4-10.4) fL Immature Gran % (Auto) 0.2 % Neut % (Auto) 67.9 % Lymph % (Auto) 19.1 % Meriwether % (Auto) 10.7 % Eos % (Auto) 1.9 % Baso % (Auto) 0.2 % Neut # (Auto) 8.39 H (1.4-6.5) K/uL Lymph # (Auto) 2.36 (1.2-3.4) K/uL [place] # (Auto) 1.32 H (0.11-0.59) K/uL Eos # (Auto) 0.23 (0-0.5) K/uL Baso # (Auto) 0.03 (0-0.2) K/uL Immature Gran # (Auto) 0.02 (0.00-0.02) K/uL PT (9.0-12.0) Seconds INR (0.9-1.1) APTT (21.0-31.0) Seconds PTT Ratio Sodium 141 (136-145) mmol/L Potassium 3.7 (3.5-5.1) mmol/L Chloride 110 H (98-107) mmol/L Carbon Dioxide 25 (21-32) mmol/L Anion Gap 6.0 (3-11) BUN 18 (7-18) mg/dl Creatinine 1.04 (0.6-1.2) mg/dl Est Cr Clr Drug Dosing 50.9 ml/min Est GFR ( Amer) 61.7 Est GFR (Non-Af Amer) 53.3 BUN/Creatinine Ratio 16.9 (10-20) Glucose 105 H (70-99) mg/dl Estimat Average Glucose mg/dl Hemoglobin A1c (4.5-5.6) % Calcium 8.7 (8.5-10.1) mg/dl Magnesium (1.8-2.4) mg/dl Total Bilirubin 0.3 (0.2-1) mg/dl AST 15 (15-37) U/L ALT 21 (12-78) U/L Alkaline Phosphatase 192 H (45-117) U/L Total Protein 7.1 (6.4-8.2) gm/dl Albumin 3.3 L (3.4-5.0) gm/dl Globulin 3.8 (2.5-4.0) gm/dl Albumin/Globulin Ratio 0.9 (0.9-2) Urine Color Urine Appearance (Clear) Urine pH (4.5-7.5) Ur Specific [place] (1.000-1.030) Urine Protein (Negative) Urine Glucose (UA) (Negative) Urine Ketones (Negative) Urine Blood (Negative) Urine Nitrite (Negative) Urine Bilirubin (Negative) Urine Urobilinogen (Negative) Ur Leukocyte Esterase (Negative) Urine WBC (Auto) (0-5) /hpf Urine RBC (Auto) (0-4) /hpf U Hyaline Cast (Auto) (0-5) /lpf U Epithel Cells (Auto) (0-5) /lpf Urine Bacteria (Auto) (Negative) COVID-19 Eval Order [facility]FluRsv at [facility] SARS-CoV-2 (PCR) (Negative) Influenza Type A (PCR) (Neg) Influenza Type B (PCR) (Neg) RSV (RT-PCR) (Neg) 07/13/20 Range/Units 20:06 WBC (4.8-10.8) K/uL RBC (4.2-5.4) M/uL Hgb (12.0-16.0) g/dL Hct (37-47) % MCV (80-100) fL MCH (25-34) pg MCHC (32-36) g/dL RDW Std Deviation (36.4-46.3) fL RDW Coeff of Cindy (11.5-14.5) % Plt Count (130-400) K/uL MPV (7.4-10.4) fL Immature Gran % (Auto) % Neut % (Auto) % Lymph % (Auto) % [place] % (Auto) % Eos % (Auto) % Baso % (Auto) % Neut # (Auto) (1.4-6.5) K/uL Lymph # (Auto) (1.2-3.4) K/uL [place] # (Auto) (0.11-0.59) K/uL Eos # (Auto) (0-0.5) K/uL Baso # (Auto) (0-0.2) K/uL Immature Gran # (Auto) (0.00-0.02) K/uL PT 23.1 H (9.0-12.0) Seconds INR 2.4 H (0.9-1.1) APTT 38.1 H (21.0-31.0) Seconds PTT Ratio 1.4 Sodium (136-145) mmol/L Potassium (3.5-5.1) mmol/L Chloride (98-107) mmol/L Carbon Dioxide (21-32) mmol/L Anion Gap (3-11) BUN (7-18) mg/dl Creatinine (0.6-1.2) mg/dl Est Cr Clr Drug Dosing ml/min Est GFR ( Amer) Est GFR (Non-Af Amer) BUN/Creatinine Ratio (10-20) Glucose (70-99) mg/dl Estimat Average Glucose mg/dl Hemoglobin A1c (4.5-5.6) % Calcium (8.5-10.1) mg/dl Magnesium (1.8-2.4) mg/dl Total Bilirubin (0.2-1) mg/dl AST (15-37) U/L ALT (12-78) U/L Alkaline Phosphatase (45-117) U/L Total Protein (6.4-8.2) gm/dl Albumin (3.4-5.0) gm/dl Globulin (2.5-4.0) gm/dl Albumin/Globulin Ratio (0.9-2) Urine Color Urine Appearance (Clear) Urine pH (4.5-7.5) Ur Specific [place] (1.000-1.030) Urine Protein (Negative) Urine Glucose (UA) (Negative) Urine Ketones (Negative) Urine Blood (Negative) Urine Nitrite (Negative) Urine Bilirubin (Negative) Urine Urobilinogen (Negative) Ur Leukocyte Esterase (Negative) Urine WBC (Auto) (0-5) /hpf Urine RBC (Auto) (0-4) /hpf U Hyaline Cast (Auto) (0-5) /lpf U Epithel Cells (Auto) (0-5) /lpf Urine Bacteria (Auto) (Negative) COVID-19 Eval Order SARS-CoV-2 (PCR) (Negative) Influenza Type A (PCR) (Neg) Influenza Type B (PCR) (Neg) RSV (RT-PCR) (Neg) Medications Administered Current Inpatient Medications Acetaminophen (Acetaminophen 325 Mg Tab) 650 mg PO Q4H PRN PRN Reason: pain/fever Stop: 08/12/20 23:32 Albuterol (Albuterol Hfa 8 Gm Inhaler) 1 - 2 puffs INH Q6H PRN PRN Reason: Shortness Of Breath Or Wheezing Stop: 08/12/20 23:32 Amiodarone HCl (Amiodarone 200 Mg Tab) 200 mg PO HS [facility] Stop: 08/13/20 00:29 Last Admin: 07/14/20 00:36 Dose: 200 mg Documented by: Amlodipine Besylate (Amlodipine Besylate 5 Mg Tab) [facility] Stop: 08/13/20 08:59 Last Admin: 07/14/20 08:16 Dose: 2.5 mg Documented by: Cyanocobalamin (Cyanocobalamin 500 Mcg Tablet (Vitamin B-12)) 500 mcg PO DAILY [facility] Stop: 08/13/20 08:59 Last Admin: 07/14/20 08:17 Dose: 500 mcg Documented by: Famotidine (Famotidine 20 Mg Tab) 20 mg PO QAM [facility] Stop: 08/13/20 08:59 Last Admin: 07/14/20 08:16 Dose: 20 mg Documented by: Fluticasone Propionate (Fluticasone Propionate Na Spr 16 Gm Btl) 2 sprays NA DAILY PRN PRN Reason: Nasal Congestion Stop: 08/12/20 23:32 Furosemide (Furosemide 20 Mg Tab) [facility] Stop: 08/13/20 08:59 Last Admin: 07/14/20 08:16 Dose: 20 mg Documented by: Hydromorphone HCl (Hydromorphone Inj 0.5 Mg/0.5 Ml Syr) 0.5 mg IV Q3H PRN PRN Reason: Pain Stop: 07/27/20 23:32 Last Admin: 07/14/20 00:41 Dose: 0.5 mg Documented by: Levothyroxine Sodium (Levothyroxine Sodium 50 Mcg Tablet) 50 mcg PO DAILYBB [facility] Stop: 08/13/20 06:29 Last Admin: 07/14/20 05:44 Dose: 50 mcg Documented by: Metoprolol Succinate (Metoprolol Succ 25mg Ext Rel Tab) 25 mg PO HS [facility] Stop: 08/13/20 00:14 Last Admin: 07/14/20 00:36 Dose: 25 mg Documented by: Omeprazole (Omeprazole 20 Mg Capcr) 20 mg PO BID [facility] Stop: 08/13/20 00:29 Last Admin: 07/14/20 08:17 Dose: 20 mg Documented by: Ondansetron HCl (Ondansetron Inj 2 Mg/Ml 2 Ml Vial) 4 mg IV Q6H PRN PRN Reason: Nausea Stop: 08/12/20 23:32 Oxycodone HCl (Oxycodone Hcl Ir 5 Mg Tab (Immediate Release)) 5 mg PO Q6H PRN PRN Reason: Pain Stop: 07/27/20 23:32 Last Admin: 07/14/20 00:03 Dose: 5 mg Documented by: Polyethylene Glycol (Polyethylene (Miralax) 17 Gm Pack) 17 gm PO DAILY PRN PRN Reason: Constipation Stop: 08/12/20 23:32 Umeclidinium/Vilanterol (Umeclidinium/Vilanterol 62.5/25mcg 7 Puffs/Inhaler) 1 puffs INH DAILY [facility] Stop: 08/13/20 08:59 Last Admin: 07/14/20 08:49 Dose: 1 puffs Documented by: Warfarin Sodium (Warfarin Sod 2 Mg Tab) 2 mg PO [id number]@1600 [facility] Stop: 08/13/20 15:59 Last Admin: 07/14/20 15:49 Dose: 2 mg Documented by: Warfarin Sodium (Warfarin Sod 1 Mg Tab) 1 mg PO [id number]@1600 [facility] Stop: 08/14/20 15:59
[2020-07-15] MEDS: LEVOTHYROXINE SODIUM 50 MCG TABLET PO SCH (05:53)
[2020-07-15 06:03] LABS: Hematocrit (blood only) 40.5 % (37-47); Hemoglobin 13.2 g/dL (12.0-16.0); Mean Corpuscular Hemoglobin 30.3 pg (25-34); Mean Corpuscular Hgb Conc 32.6 g/dL (32-36); Mean Corpuscular Volume 92.9 fL (80-100); Platelet Count 276 K/uL (130-400); RDW Coefficient of Variation 14.5 % (11.5-14.5); RDW Standard Deviation 49.3 fL (36.4-46.3); Red Blood Count 4.36 M/uL (4.2-5.4); White Blood Count 14.41 K/uL (4.8-10.8)
[2020-07-15 06:09] LABS: Prothrombin Time 27.7 Seconds (9.0-12.0)
[2020-07-15 06:39] LABS: BUN Creatinine Ratio 16.3 (10-20); Calcium 8.5 mg/dl (8.5-10.1); Creatinine Clr Calc Pharmacy 47.6 ml/min; Est GFR (African American) 58.3; Est GFR (Non-African American) 50.3; Potassium 4.4 mmol/L (3.5-5.1)
--- NOTE | 2020-07-15 07:03 | XRay Report ---
XR knee LT 1 or 2V routine CLINICAL HISTORY: Left knee pain COMPARISON: None. DISCUSSION: No acute fractures or dislocations are visualized. There is quadriceps insertional calcif ication into the patella. There are mild degenerative changes. There are no erosive or destructive ch anges. IMPRESSION: 1. Mild degenerative change 2. No fractures identified ACT 112: Negative or not required by law. Electronically signed by: Vince Crane M.D. 07/15/2020 7:01 AM
[2020-07-15] MEDS: amLODIPine BESYLATE 5 MG TAB PO SCH (09:14)
[2020-07-15] MEDS: FUROSEMIDE 20 MG TAB PO SCH (09:14)
[2020-07-15] MEDS: FAMOTIDINE 20 MG TAB PO SCH (09:14)
[2020-07-15] MEDS: CYANOCOBALAMIN 500 MCG TABLET (VITAMIN B-12) PO SCH (09:14)
[2020-07-15] MEDS: OMEPRAZOLE 20 MG CAPCR PO SCH ×2 (09:14→20:34)
[2020-07-15] MEDS: UMECLIDINIUM/VILANTEROL 62.5/25MCG 7 PUFFS/INHALER INH SCH (09:15)
--- NOTE | 2020-07-15 11:30 | Orthopedic Progress Note ---
Date of Service July 15, 2020 Assessment & Plan (1) Acute left lumbar radiculopathy: Dr. Cruz has reviewed MRI as well as her clinical findings. While it is possible that her left lower extremity pain is radicular from her spondylolisthesis at the L4-5 level, MRI shows only modest findings. No significant degree of stenosis noted. Would therefore not recommend any type of urgent surgical intervention. This can be managed conservatively. If pain is unable to be controlled with oral/IV medication would consider consult with pain management. Gali is on anticoagulation which would obviously have to be held if going to pursue epidural injections. I will leave this up to the pain management team if they end up being consulted. Activity is as tolerated. Admission and Anticipated Discharge Date Admission Date: July 13, 2020 Supervising Physician Co-Signing Physician Notes Dr. Kalen Cruz Subjective Patient is resting this morning. I did not disturb. Appears to have had an uneventful evening. MRI was completed yesterday. Knee x-rays were also performed. Hip x-rays were performed on initial admission. Both rather benign. Review of Systems Review of Systems: All systems reviewed & are unremarkable except as noted in HPI & below Physical Exam Physical Exam: Unchanged Results & Data [facility]) Vital Signs (Past 12 Hours) Vital Signs Temp Pulse Resp BP Pulse Ox 07/15/20 08:01 36.5 C 62 16 115/65 96 Diagnostic Findings [facility], [id number] Magnetic Resonance Report Patient: GALI GALLOWAY Date: 07/13/20#: [id number]: [id number] [facility] ID:[id number]: Date: 1945[facility] Zip: [place], [place] [address]Frt: 75Location: 3ESex: FRoom/Bed: [id number] Phy: Aj Forman, MDDiagnosis: Back pain, Ambulatory DysfunctionPri Phy: Venu Olivera, DOService Date: 07/14/20Fam Phy:Interpreting Phy: Mayank Calvin [facility] Phy: Michael Barone MD Ordering Phy: Shelbi Reardon cc: ~ MRI OF THE LUMBAR SPINE WITHOUT IV CONTRAST CLINICAL HISTORY: Low back pain. Left lower extremity radiculopathy. COMPARISON STUDY: Radiographs of the lumbar spine dated 07/13/2020. Abdominal CT dated 06/10/2015. TECHNIQUE: MRI of the lumbar spine is performed utilizing various T1 and T2- weighted sequences in the axial and sagittal planes. IV contrast was not administered for this examination. FINDINGS: Lumbar spine: Marrow signal intensity is mildly heterogeneous. Vertebral body height and alignment are maintained throughout the lumbar spine. Tiny anterior osteophytes are seen throughout. The transverse and spinous processes appear intact. There is no evidence of spondylolysis. No destructive bony lesion is seen. Intervertebral discs: Degenerative disc desiccation and mild loss of height is seen throughout the lumbar spine. Loss of height is greatest at L1-L2. Spinal cord: The visualized spinal cord is normal in morphology and signal intensity. The conus medullaris terminates at the L1-L2 interspace. The nerve roots of the cauda equina are normal in morphology. L1-L2: There is mild left lateral disc bulge. This contributes to mild subarticular stenosis and may abut the exiting left L1 nerve root. There is no acquired compromise of the central canal. The neural foramina are patent. L2-L3: There is minimal disc bulge with annular fissure. The central canal is clear, as are the neural foramina. L3-L4: There is mild posterior disc bulge. In conjunction with hypertrophy of the ligamentum flavum there is mild acquired compromise of the central canal at this level. The minimum AP diameter measures 7.5 mm. There is mild bilateral subarticular stenosis. Facet arthropathy is of no consequence. The neural foramina are patent. L4-L5: There is minimal posterior disc bulge. In conjunction with hypertrophy of the ligamentum flavum there is moderate central canal stenosis at this level with a minimum AP diameter of 5 mm. The disc bulge abuts the transiting nerve roots. Facet arthropathy is of no consequence. The neural foramina are patent. L5-S1: Mild facet arthropathy is of no consequence. The central canal and neural foramina are patent. Sacrum: The visualized sacrum is normal in morphology and signal intensity. Soft tissues: The paraspinous soft tissues are normal in appearance. The visualized retroperitoneal structures are grossly unremarkable but incompletely assessed. IMPRESSION: 1. There is moderate central canal stenosis at L4-L5 as detailed above. 2. Mild spondylotic change is seen at the remaining lumbar levels. See discussion for detailed level by level analysis. 3. No destructive bony process is identified. Dictated: 07/14/2020 2:50 PM Transcribed: 07/14/2020 3:14 PM Priscilla [id number] [id number] Marie Electronically signed by: Mayank Calvin M.D. 07/14/2020 3:20 PM Dictated: 07/14/20 1450Transcribed: 07/14/20 1514
--- NOTE | 2020-07-15 13:42 | Hospitalist Progress Note ---
Date of Service July 15, 2020 Assessment & Plan (1) Ambulatory dysfunction: (2) Acute left lumbar radiculopathy: (3) Intractable low back pain: Present on admission with severe back pain radiated to left lower extremity MRI lumbar spine showed moderate central canal stenosis at L4-L5 Doppler of LLE showed no evidence of DVT Ortho on board - No surgical intervention at this time Recommended conservative management Continue pain control Pt is not interested in epidural injection since he had 2 injection in the past PT/OT eval UTI Urine cx grew Ecoli Started on Rocephin IV daily Will follow urine sensitivity . Atrial fibrillation Tachybrady syndrome Status post pacemaker Continue Coumadin, INR is therapeutic at 3. History of chronic obstructive pulmonary disease: Continue her home inhalers Currently stable. History of hypothyroidism: Continue levothyroxine. Hypertension: Continue amlodipine, Toprol-XL. Gastroesophageal reflux disease: Continue pepcid and omeprazole. Chronic diastolic congestive heart failure: Continue Toprol-XL and Lasix. DVT px On Coumadin Admission and Anticipated Discharge Date Admission Date: July 13, 2020 Subjective Pt was seen and examined for follow up of left leg pain Lying in bed comfortable with no distress Pt said that pain improves Denies any chest pain, palpitation, dizziness, dysuria and fever Review of Systems Review of Systems: All systems reviewed & are unremarkable except as noted in Subjective Physical Exam Physical Exam: General- No acute distress Head- atraumatic Eyes- PERRL, EOMI, ENT- oropharynx clear Neck- supple, no JVD Lungs- clear to auscultation Heart- regular rhythm Abdomen- normal bowel sounds, soft, nontender Extremities- no calf tenderness, left lower extremities weakness Neuro- alert, oriented x 3; PERRL, EOMI; no facial palsy; no dysarthria Skin- warm & dry Results & Data Results & Data ([facility]) Vital Signs (Past 12 Hours) Vital Signs Temp Pulse Resp BP Pulse Ox 07/15/20 08:01 36.5 C 62 16 115/65 96
[2020-07-15] MEDS ORDERED: WARFARIN SOD 1 MG TAB PO SCH (16:00)
[2020-07-15] MEDS: WARFARIN SOD 2 MG TAB PO SCH (16:03)
[2020-07-15] MEDS: oxyCODONE HCL IR 5 MG TAB (IMMEDIATE RELEASE) PO PRN (19:21)
[2020-07-15] MEDS: cefTRIAXone SODIUM 2,000 MG in DEXTROSE 5% 50 ML IV SCH (20:28)
[2020-07-15] MEDS: AMIODARONE 200 MG TAB PO SCH (20:33)
[2020-07-15] MEDS: METOPROLOL SUCC 25MG EXT REL TAB PO SCH (20:34)
[2020-07-16] MEDS: LEVOTHYROXINE SODIUM 50 MCG TABLET PO SCH (04:52)
[2020-07-16 06:19] LABS: Hematocrit (blood only) 41.6 % (37-47); Hemoglobin 13.6 g/dL (12.0-16.0); Mean Corpuscular Hemoglobin 30.2 pg (25-34); Mean Corpuscular Hgb Conc 32.7 g/dL (32-36); Mean Corpuscular Volume 92.2 fL (80-100); Mean Platelet Volume 11.1 fL (7.4-10.4); Platelet Count 308 K/uL (130-400); RDW Coefficient of Variation 14.6 % (11.5-14.5); RDW Standard Deviation 49.5 fL (36.4-46.3); Red Blood Count 4.51 M/uL (4.2-5.4); White Blood Count 13.47 K/uL (4.8-10.8)
[2020-07-16] MEDS: FAMOTIDINE 20 MG TAB PO SCH (08:56)
[2020-07-16] MEDS: FUROSEMIDE 20 MG TAB PO SCH (08:56)
[2020-07-16] MEDS: CYANOCOBALAMIN 500 MCG TABLET (VITAMIN B-12) PO SCH (08:56)
[2020-07-16] MEDS: amLODIPine BESYLATE 5 MG TAB PO SCH (08:56)
[2020-07-16] MEDS: UMECLIDINIUM/VILANTEROL 62.5/25MCG 7 PUFFS/INHALER INH SCH (08:56)
[2020-07-16] MEDS: OMEPRAZOLE 20 MG CAPCR PO SCH ×2 (08:57→17:19)
[2020-07-16] MEDS: oxyCODONE HCL IR 5 MG TAB (IMMEDIATE RELEASE) PO PRN (09:00)
[2020-07-16] MEDS ORDERED: LIDOCAINE 4% CREAM 15 GM TUBE EXT SCH (13:00)
[2020-07-16] MEDS: WARFARIN SOD 2 MG TAB PO SCH (15:14)
[2020-07-16] MEDS: cefTRIAXone SODIUM 2,000 MG in DEXTROSE 5% 50 ML IV SCH (18:01)
--- NOTE | 2020-07-16 18:58 | Hospitalist Progress Note ---
Date of Service July 16, 2020 Assessment & Plan (1) Ambulatory dysfunction: (2) Acute left lumbar radiculopathy: (3) Intractable low back pain: Present on admission with severe back pain radiated to left lower extremity MRI lumbar spine showed moderate central canal stenosis at L4-L5 Doppler of LLE showed no evidence of DVT Ortho on board - No surgical intervention at this time Recommended conservative management Continue pain control Pt is not interested in epidural injection since he had 2 injection in the past PT/OT eval UTI Urine cx grew Ecoli on Rocephin IV daily Will transition to PO Keflex . Atrial fibrillation Tachybrady syndrome Status post pacemaker Continue Coumadin, INR is therapeutic at 3. History of chronic obstructive pulmonary disease: Continue her home inhalers Currently stable. History of hypothyroidism: Continue levothyroxine. Hypertension: Continue amlodipine, Toprol-XL. Gastroesophageal reflux disease: Continue pepcid and omeprazole. Chronic diastolic congestive heart failure: Continue Toprol-XL and Lasix. DVT px On Coumadin Disposition Possible discharge tomorrow with services Admission and Anticipated Discharge Date Admission Date: July 13, 2020 Subjective Pt was seen and examined for follow up of left leg pain Sitting at the edge of the bed with no distress Pt said that she continues to have the knee pain Denies any chest pain, palpitation, dizziness, dysuria and fever Physical Exam Physical Exam: General- No acute distress Head- atraumatic Eyes- PERRL, EOMI, ENT- oropharynx clear Neck- supple, no JVD Lungs- clear to auscultation Heart- regular rhythm Abdomen- normal bowel sounds, soft, nontender Extremities- no calf tenderness, left lower extremities weakness Neuro- alert, oriented x 3; PERRL, EOMI; no facial palsy; no dysarthria Skin- warm & dry Results & Data Results & Data ([facility]) Vital Signs (Past 12 Hours) Vital Signs Temp Pulse Resp BP Pulse Ox 07/16/20 15:00 36.5 C 74 16 148/79 H 95 07/16/20 07:57 36.5 C 60 16 125/72 98
[2020-07-16] MEDS: METOPROLOL SUCC 25MG EXT REL TAB PO SCH (20:35)
[2020-07-16] MEDS: AMIODARONE 200 MG TAB PO SCH (20:35)
[2020-07-17 06:27] LABS: Hematocrit (blood only) 45.9 % (37-47); Hemoglobin 15.5 g/dL (12.0-16.0); Mean Corpuscular Hemoglobin 30.9 pg (25-34); Mean Corpuscular Hgb Conc 33.8 g/dL (32-36); Mean Corpuscular Volume 91.4 fL (80-100); Mean Platelet Volume 11.1 fL (7.4-10.4); Platelet Count 319 K/uL (130-400); RDW Coefficient of Variation 14.7 % (11.5-14.5); RDW Standard Deviation 49.6 fL (36.4-46.3); Red Blood Count 5.02 M/uL (4.2-5.4); White Blood Count 12.89 K/uL (4.8-10.8)
[2020-07-17 06:41] LABS: INR 2.8 (0.9-1.1); Prothrombin Time 26.4 Seconds (9.0-12.0)
[2020-07-17] MEDS: LEVOTHYROXINE SODIUM 50 MCG TABLET PO SCH (06:43)
[2020-07-17] MEDS: CYANOCOBALAMIN 500 MCG TABLET (VITAMIN B-12) PO SCH (08:10)
[2020-07-17] MEDS: UMECLIDINIUM/VILANTEROL 62.5/25MCG 7 PUFFS/INHALER INH SCH (08:10)
[2020-07-17] MEDS: FAMOTIDINE 20 MG TAB PO SCH (08:10)
[2020-07-17] MEDS: FUROSEMIDE 20 MG TAB PO SCH (08:10)
[2020-07-17] MEDS: amLODIPine BESYLATE 5 MG TAB PO SCH (08:10)
[2020-07-17] MEDS: OMEPRAZOLE 20 MG CAPCR PO SCH (08:11)
[2020-07-17] MEDS ORDERED: LIDOCAINE 5% 1 PATCH TD SCH (09:00)
--- NOTE | 2020-07-17 13:55 | Hospitalist Progress Note ---
Date of Service July 17, 2020 Assessment & Plan (1) Ambulatory dysfunction: (2) Acute left lumbar radiculopathy: (3) Intractable low back pain: Present on admission with severe back pain radiated to left lower extremity MRI lumbar spine showed moderate central canal stenosis at L4-L5 Doppler of LLE showed no evidence of DVT Ortho on board - No surgical intervention at this time Recommended conservative management Continue pain control Pt is not interested in epidural injection since he had 2 injection in the past Not interested to go to rehab PT/OT eval UTI Urine cx grew Ecoli on Rocephin IV daily started on 07/15 Will transition to PO Keflex on discharge . Atrial fibrillation Tachybrady syndrome Status post pacemaker Continue Tprolol Continue Coumadin, INR is therapeutic at 2.8 Follow up with the coag clinic History of chronic obstructive pulmonary disease: Continue her home inhalers Currently stable. History of hypothyroidism: Continue levothyroxine. Hypertension: Continue amlodipine and Toprol-XL. Gastroesophageal reflux disease: Continue pepcid and omeprazole. Chronic diastolic congestive heart failure: Continue Toprol-XL and Lasix. DVT px On Coumadin Disposition Discharge today with services Admission and Anticipated Discharge Date Admission Date: July 13, 2020 Subjective Pt was seen and examined for follow up of left leg pain Lying in bed with no acute distress watching TV She said that her pain improves with the lidocaine patch She is not interested to go to rehab She said that her family just got a walker waiting for her to use once discharge from the hospital Denies any chest pain, palpitation, dizziness, dysuria and fever Review of Systems Review of Systems: All systems reviewed & are unremarkable except as noted in Subjective Physical Exam Physical Exam: General- No acute distress Head- atraumatic Eyes- PERRL, EOMI, ENT- oropharynx clear Neck- supple, no JVD Lungs- clear to auscultation Heart- regular rhythm Abdomen- normal bowel sounds, soft, nontender Extremities- no calf tenderness, left lower extremities weakness Neuro- alert, oriented x 3; PERRL, EOMI; no facial palsy; no dysarthria Skin- warm & dry Results & Data Results & Data ([facility]) Vital Signs (Past 12 Hours) Vital Signs Temp Pulse Resp BP Pulse Ox 07/17/20 06:23 36.4 C L 65 16 121/76 96
[2020-07-17] MEDS ORDERED: WARFARIN SOD 1 MG TAB PO SCH (16:00)
--- NOTE | 2020-07-20 08:50 | Discharge Summary ---
Date of Service July 17, 2020 Admission HPI Per Admitting Provider CHIEF COMPLAINT: Severe back pain. HISTORY OF PRESENT ILLNESS: A 75-year-old female with past medical history significant for prediabetes, hypothyroidism, COPD, atrial fibrillation, tachybrady syndrome, diastolic dysfunction, paroxysmal atrial fibrillation, GERD, diverticulosis of colon, chronic kidney disease stage III, general osteoarthrosis, sciatica, carpal tunnel syndrome, family history of colon cancer, status post pacemaker, who lives with her grandson, comes with severe back pain. The patient states she has chronic back pain with sciatica, but 4 days ago it got severe. Two days ago, she went for shopping and when she came back she could not ambulate. She rested whole day yesterday and again she went for shopping for a couple of hours today. When she came home, she could not walk. Her grandson had to lift her up, help her into the house. That is the reason she came in. She is saying she could not put any weight on the leg because of severe pain in the left leg. No incontinence of urine or stool. Denies any other complaints. No headache, no blurred vision, no earache, no runny nose, no sore throat, no cough. She has chronic COPD cough. She gets on and off some shortness of breath from her COPD. Denies any chest pain. Appetite is okay. No dysphagia, no nausea, no vomiting, no abdominal pain. Normal bowel and bladder movements. Admission Exam Per Admitting Provider GENERAL: The patient is of moderate build, not in acute distress. VITAL SIGNS: Temperature 36.5, pulse 68, respiratory rate 22, blood pressure 121/88, oxygen 94% on room air. HEENT: Pupils are equal, round, and reactive to light. Oral mucosa moist. NECK: No JVD, no neck masses. CARDIOVASCULAR: S1, S2 heard. Regular rate and rhythm, no murmur, no gallop. RESPIRATORY SYSTEM: Normal AP diameter. No accessory muscle use. No wheezing, no crackles. ABDOMEN: Soft, bowel sounds present, nontender. No distention. CENTRAL NERVOUS SYSTEM: Alert and oriented. Speech clear, no facial droop. Obeys commands. Moves extremities. EXTREMITIES: No edema, no erythema. MUSCULOSKELETAL: Painful movements of the left lower extremity. Principal Diagnosis Ambulatory dysfunction: Acute left lumbar radiculopathy: Intractable low back pain: Urinary tract infection Atrial fibrillation Tachybrady syndrome History of chronic obstructive pulmonary disease: History of hypothyroidism: Hypertension: Gastroesophageal reflux disease: Chronic diastolic congestive heart failure: Discharge Exam General- No acute distress Head- atraumatic Eyes- PERRL, EOMI, ENT- oropharynx clear Neck- supple, no JVD Lungs- clear to auscultation Heart- regular rhythm Abdomen- normal bowel sounds, soft, nontender Extremities- no calf tenderness, left lower extremities weakness Neuro- alert, oriented x 3; PERRL, EOMI; no facial palsy; no dysarthria Skin- warm & dry Discharge Data Allergies Allergy/AdvReac Type Severity Reaction Status Date / Time sulfamethoxazole AdvReac Severe CAUSED Verified 07/18/20 01:19 [From Bactrim] KIDNEY PROBLEMS trimethoprim [From Bactrim] AdvReac Severe CAUSED Verified 07/18/20 01:19 KIDNEY PROBLEMS adhesive AdvReac Mild BLISTERS Verified 07/18/20 01:19 Consultations 07/13/20 21:24 ED Decision to Admit Stat 07/14/20 08:00 Consult Orthopedic Surgery Routine Ordered Studies 07/13/20 19:58 US venous doppler LE LT Urgent 07/14/20 13:11 MR lumbar spine wo con Routine XR knee LT 1 or 2V routine CLINICAL HISTORY: Left knee pain COMPARISON: None. DISCUSSION: No acute fractures or dislocations are visualized. There is quadriceps insertional calcification into the patella. There are mild degenerative changes. There are no erosive or destructive changes. IMPRESSION: 1. Mild degenerative change 2. No fractures identified ACT 112: Negative or not required by law. Electronically signed by: Vince Crane M.D. 07/15/2020 7:01 AM Dictated: 07/15/20 0701Transcribed: 07/15/20 0701 MRI OF THE LUMBAR SPINE WITHOUT IV CONTRAST CLINICAL HISTORY: Low back pain. Left lower extremity radiculopathy. COMPARISON STUDY: Radiographs of the lumbar spine dated 07/13/2020. Abdominal CT dated 06/10/2015. TECHNIQUE: MRI of the lumbar spine is performed utilizing various T1 and T2- weighted sequences in the axial and sagittal planes. IV contrast was not administered for this examination. FINDINGS: Lumbar spine: Marrow signal intensity is mildly heterogeneous. Vertebral body height and alignment are maintained throughout the lumbar spine. Tiny anterior osteophytes are seen throughout. The transverse and spinous processes appear intact. There is no evidence of spondylolysis. No destructive bony lesion is seen. Intervertebral discs: Degenerative disc desiccation and mild loss of height is seen throughout the lumbar spine. Loss of height is greatest at L1-L2. Spinal cord: The visualized spinal cord is normal in morphology and signal intensity. The conus medullaris terminates at the L1-L2 interspace. The nerve roots of the cauda equina are normal in morphology. L1-L2: There is mild left lateral disc bulge. This contributes to mild subarticular stenosis and may abut the exiting left L1 nerve root. There is no acquired compromise of the central canal. The neural foramina are patent. L2-L3: There is minimal disc bulge with annular fissure. The central canal is clear, as are the neural foramina. L3-L4: There is mild posterior disc bulge. In conjunction with hypertrophy of the ligamentum flavum there is mild acquired compromise of the central canal at this level. The minimum AP diameter measures 7.5 mm. There is mild bilateral subarticular stenosis. Facet arthropathy is of no consequence. The neural foramina are patent. L4-L5: There is minimal posterior disc bulge. In conjunction with hypertrophy of the ligamentum flavum there is moderate central canal stenosis at this level with a minimum AP diameter of 5 mm. The disc bulge abuts the transiting nerve roots. Facet arthropathy is of no consequence. The neural foramina are patent. L5-S1: Mild facet arthropathy is of no consequence. The central canal and neural foramina are patent. Sacrum: The visualized sacrum is normal in morphology and signal intensity. Soft tissues: The paraspinous soft tissues are normal in appearance. The visualized retroperitoneal structures are grossly unremarkable but incompletely assessed. IMPRESSION: 1. There is moderate central canal stenosis at L4-L5 as detailed above. 2. Mild spondylotic change is seen at the remaining lumbar levels. See discussion for detailed level by level analysis. 3. No destructive bony process is identified. Dictated: 07/14/2020 2:50 PM Transcribed: 07/14/2020 3:14 PM Priscilla [id number] VAIBHAV_Jean Marie Electronically signed by: Mayank Calvin M.D. 07/14/2020 3:20 PM Dictated: 07/14/20 1450Transcribed: 07/14/20 1514 US venous doppler LE CLINICAL HISTORY: Left leg pain COMPARISON STUDY: No previous studies for comparison. FINDINGS: Real-time and color flow Doppler imaging were performed. Flow was seen within the femoral, popliteal and calf veins with no intraluminal thrombus demonstrated. The saphenous vein is patent. IMPRESSION: No evidence of left lower extremity DVT. ACT 112: Negative or not required by law. Electronically signed by: Vince Crane M.D. 07/14/2020 6:49 AM Dictated: 07/14/20 0649Transcribed: 07/14/20 0649 LUMBAR SPINE 3 VIEWS CLINICAL HISTORY: Atraumatic low back pain. FINDINGS: 3 views of the lumbar spine are correlated with abdominal CT dated 06/10/2015. The skeletal structures are osteopenic. There is no radiographic evidence of acute fracture or malalignment. There is minimal anterolisthesis at L4-L5. Alignment is otherwise preserved. Anterior and lateral marginal osteophytes are seen throughout. The transverse and spinous processes appear intact. Advanced facet arthropathy is seen in the mid to lower lumbar region. There is mild multilevel degenerative disc space narrowing with endplate sclerosis seen at L1-L2. The visualized bony pelvis appears intact. Surgical clips and suture material project over the pelvis. No bowel obstruction is seen. There is moderate colonic fecal retention. A calcified splenic artery aneurysm is again seen in the left upper quadrant measuring up to 1.4 cm. IMPRESSION: 1. No acute bony abnormality is seen involving the lumbar spine. 2. Osteopenia and spondylotic change as above. Electronically signed by: Mayank Calvin M.D. 07/14/2020 7:53 AM Dictated: 07/14/20 0724Transcribed: 07/14/20 0724 SINGLE VIEW PELVIS; 2 VIEWS LEFT HIP CLINICAL HISTORY: Atraumatic left hip pain. FINDINGS: 2 AP views of the pelvis with AP and frog-leg views of the left hip are correlated with pelvic CT dated 06/10/2015. The skeletal structures are osteopenic. There is no radiographic evidence of acute fracture involving the hips or bony pelvis. Minimal degenerative joint space narrowing is seen in the hips. Mild sclerosis is noted in the sacroiliac joints. Lumbosacral spondylosis is partially imaged. Large enthesophytes arise from the anterior superior iliac spines. There is a nonobstructed bowel gas pattern. Moderate fecal retention is seen throughout the colon. Surgical clips and suture material project over the pelvis. The overlying soft tissues are normal as visualized. IMPRESSION: No acute bony abnormality is identified. Electronically signed by: Mayank Calvin M.D. 07/14/2020 7:53 AM Dictated: 07/14/20750Transcribed: 07/14/20750 Hospital Course (1) Ambulatory dysfunction: (2) Acute left lumbar radiculopathy: (3) Intractable low back pain: Present on admission with severe back pain radiated to left lower extremity MRI lumbar spine ordered by ortho, pt just had done Doppler of LLE obtained on admission, no evidence of DVT Continue pain control w/ opioids, also- received steroid in ED, will give decadron now again as pt is somewhat uncomfortable from MRI, will also provide lidoacine patch Ortho consulted PT/OT eval UTI Urine cx grew Ecoli on Rocephin IV daily started on 07/15 Atrial fibrillation Tachybrady syndrome Status post pacemaker Continue Toprol Continue Coumadin, INR is therapeutic Follow up with the coag clinic History of chronic obstructive pulmonary disease: Continue her home inhalers Currently stable. History of hypothyroidism: Continue levothyroxine. Hypertension: Continue amlodipine and Toprol-XL. Gastroesophageal reflux disease: Continue pepcid and omeprazole. Chronic diastolic congestive heart failure: Continue Toprol-XL and Lasix. DVT px On Coumadin Dispo: depends on ortho eval, PT/OT Total Time Total Time Spent Total Time Spent (In Minutes): 35 minutes Total Time Includes: Examination of the Patient, Discharge Planning, Medication Reconciliation, Communication With Other Providers and Other Discharge Plan Discharge Items Patient Disposition: Home - Home Health Services Reason For Visit: Back pain, Ambulatory Dysfunction Discharge Diagnosis: Ambulatory dysfunction: Acute left lumbar radiculopathy: Intractable low back pain: Urinary tract infection Atrial fibrillation Tachybrady syndrome History of chronic obstructive pulmonary disease: History of hypothyroidism: Hypertension: Gastroesophageal reflux disease: Chronic diastolic congestive heart failure: Activity: Resume your previous activity Non-emergency contact: Primary Care Provider Call non-emergency contact if: you have any medication questions Follow-up/Referrals: Venu Olivera DO [Primary Care Provider] - (Date & Time 07/22/2020 3:00 PM Provider Fly Esteves MD Department Internal Medicine [facility] ) Diet: Heart Healthy [facility] Attending Provider Instructions: Follow up with your primary care provider Dr. Esteves on 07/22/2020 at 3:00 PM Continue physical and occupational therapy with home health services Follow up with the coumadin clinic to monitor your PT/INR Activity as tolerate and use a walker to ambulate fall precaution Complete the course of the antibiotic with keflex Do not drive or operate any machine after taking the oxycodone Please hold the next dose if you become drowsy and lethargy Pending Studies at Discharge: No Stand-Alone Forms: My [facility] [employer], Smoking Cessation Medications and DC Order Prescriptions: New lidocaine 5 % Adhesive Patch,Medicated 1 patch transdermal QAM PRN (Reason: pain ) Qty: 10 RF: 0 oxycodone 5 mg Tablet 2.5 mg PO Q12H PRN (Reason: pain, severe) Qty: 10 RF: 0 Continued warfarin [Jantoven] 2 mg Tablet See Rx Instructions .ROUTE .COMPLEX RF: 0 amiodarone 200 mg tablet 200 mg PO HS RF: 0 amlodipine 2.5 mg tablet 2.5 mg PO QAM RF: 0 famotidine 20 mg tablet 20 mg PO QAM RF: 0 levothyroxine 50 mcg tablet 50 mcg PO QAM RF: 0 omeprazole 20 mg capsule,delayed release(DR/EC) 20 mg PO BID RF: 0 furosemide 20 mg tablet 20 mg PO QAM RF: 0 metoprolol succinate 25 mg tablet extended release 24 hr 25 mg PO HS RF: 0 albuterol sulfate [Ventolin HFA] 90 mcg/actuation HFA aerosol inhaler 1 - 2 puff INHALATION DIRECTED PRN (Reason: Shortness Of Breath Or Wheezing) RF: 0 fluticasone propionate 50 mcg/actuation [place],Suspension 2 spray INTRANASAL DAILY PRN (Reason: Nasal Congestion) RF: 0 Anoro Ellipta 62.5-25 mcg/actuation blister with device 1 inh INHALATION DAILY RF: 0 cyanocobalamin (vitamin B-12) [Vitamin B-12] 500 mcg Tablet 500 mcg PO DAILY RF: 0 No Action ciprofloxacin HCl 500 mg tablet 500 mg PO BID Qty: 10 RF: 0 Discharge Orders: Discharge Order (Routine); Ordered 07/17/20 Ordered By: Tanya Arthur/Other Patient Handouts: Prediabetes, What to Know When TakingWarfarin, 5 Steps for Eating Healthier, A1C Admission Data Admit Date/Time: 07/13/20 22:45 Attending Provider: Tanya Moffett Admit Provider: Michael Barone Primary Care Provider: Venu Olivera Other Providers: Michael Barone ; Kalen Cruz ; Aj Forman ; Karrie Walnut ShadeGraciela ; Nawaf Kulkarni [facility] Other Interventions: Discharge Summary Assessment (RN) Last Done: 07/17/20 14:49
== END 2020-07-17 15:46 | disposition home health service (06) | DRG 552 ==
LOC: ED 19:50 → 3E 22:45 → SUATTDRO 22:45 → 3E 23:16

== ENCOUNTER 2021-03-13 11:47 | Inpatient (IN) ==
[2021-03-13] MEDS ORDERED: ALUMINUM/MAGNESIUM SUSP 50 ML, diphenhydrAMINE Syrup 125 MG, LIDOCAINE VISCOUS 2% SOLN ... PO PRN (12:17)
[2021-03-13] MEDS ORDERED: SODIUM CHLORIDE 0.9% 500 ML IV SCH (12:30)
--- NOTE | 2021-03-13 12:41 | XRay Report ---
XR chest 1V portable CLINICAL HISTORY: weakness COMPARISON STUDY: Chest CT September 08, 2017. Chest radiograph December 01, 2017. FINDINGS: Dual lead left subclavian pacemaker is in place. There is no pneumothorax or pleural effusi on. Cardiomediastinal silhouette is stable. Moderate right upper lung airspace opacity is present. Th ere is mild right lower lung opacity. IMPRESSION: Moderate right lung airspace opacities which favor an infectious process. Radiographic f ollow-up to ensure resolution is recommended. ACT 112: Negative or not required by law. Electronically signed by: Sunil Kramer M.D. 03/13/2021 12:39 PM
--- NOTE | 2021-03-13 12:41 | Emergency Department Note ---
Impression & Plan Pneumonia due to COVID-19 virus, Transaminitis, Hypoxia, Acute UTI ED Provider Note Provider: Sma Almanzar MD DATE OF SERVICE: 03/13/2021 CHIEF COMPLAINT: Weakness, shortness of breath HISTORY OF PRESENT ILLNESS: Patient is a 75-year-old female history of COPD, CKD, and atrial fibrillation with pacemaker on warfarin and amiodarone presenting here via ambulance from home reporting increased weakness and shortness of breath. Not vaccinated for Covid. Several illnesses at home with family members. Evidently was desatting on room air and been placed on oxygen but does normally wear. Patient does have a history of smoking. Denies significant chest pain or abdominal pain at this point. States she has had decreased appetite and her taste and smell have been affected. No trauma or falls reported. Patient states she took her medicines till a day or 2 ago as then she just could not eat much since then. Reports feeling short of breath. Denies significant leg swelling at this time. Patient states her illness started approximately 1 week ago. REVIEW OF SYSTEMS: A total of 10 review of systems was obtained and negative except as stated above in the HPI. PAST MEDICAL HISTORY: As noted above MEDICATIONS: Reviewed home medications SOCIAL HISTORY: Smoker, lives at home PHYSICAL EXAM: GENERAL: alert and oriented in no acute distress on stretcher fatigued in appearance Head: normocephalic and atraumatic EYES: No injection, discharge or icterus. NECK: Trachea midline. ENT: Mucous membranes pink and moist. LUNGS: Airway patent. No retractions. Breath sounds clear HEART: Regular rate and rhythm. No chest wall tenderness ABDOMEN: Soft and non-tender, without guarding or rebound. SKIN: Acyanotic, warm, dry, without rashes EXTREMITIES: Without swelling, tenderness or deformity NEUROLOGICAL: No focal deficits. No aphasia. No facial droop or slurred speech. EK bpm atrially paced rhythm without PVC or PAC. Some baseline artifact but no acute ST segment elevation or depression. QTC 482 CONTINUOUS CARDIAC MONITORING: was ordered and showed a heart rate of 60-80s bpm in atrially paced rhythm Patient's laboratory studies and imaging reviewed. Differential includes Infection, dehydration, metabolic abnormality, hypo/hyperglycemia, electrolyte disturbance, anemia, hypoxia, cardiac sources, intracerebral event, toxicologic, neurologic, as well as other pathologies. IMPRESSION/MEDICAL DECISION MAKING: Patient with increased fatigue and weakness and URI symptoms. Covid test returns positive and she is not vaccinated. No significant leukocytosis or anemia. INR subtherapeutic at 1.5. No troponin elevation. Transaminitis noted without bilirubin elevation likely related to her viral illness. Urinalysis is somewhat concerning for infection especially with positive nitrates. Negative influenza testing. Covered empirically with Rocephin. Oxygen supplemented here. Lower suspicion for acute PE given the use of warfarin although she is slightly subtherapeutic at this point; will defer to hospitalist bridging anticoagulation. Does have some significant oropharyngeal erythema but not clearly the white plaques consistent with thrush on my evaluation. Given some topical treatment to help soothe this. Given dose of steroids with hypoxic Covid presentation. Advised patient is a finding and she is agree with the plan to stay for further care here. Hospitalist team alerted. DIAGNOSIS: Hypoxia, COVID-19 pneumonia, weakness, UTI, transaminitis DISPOSITION: Hospitalist will evaluate Patient was agreeable with this plan. Past Med/Surg History Medical History Abdominal aneurysm Acute left lumbar radiculopathy Ambulatory dysfunction Anticoagulated on warfarin Atrial fibrillation CKD (chronic kidney disease) stage 3, GFR 30-59 ml/min Colonic diverticular abscess COPD (chronic obstructive pulmonary disease) Diverticulosis GERD (gastroesophageal reflux disease) Hypertension Intractable low back pain Tachy-silvestre syndrome Tobacco abuse Surgical History H/O tubal ligation History of cardiac pacemaker "10/04/17 Dr. De" History of colonoscopy with polypectomy History of lumpectomy of left breast History of partial colectomy "secondary to diverticulitis" History of tubal ligation Family History Mother Colorectal cancer Myocardial infarction Diabetes Father Diabetes Sister Skin cancer Social History (Updated 03/13/21 @ 15:11 by Samantha Freeman PA-C) Smoking Status: Current every day smoker Tobacco Type: Cigarettes Years Smoked: 60; Cigarettes Per Day: 10; Second Hand Exposure: Yes; Hx Alcohol Use: No Hx Substance Use: No Preferred Language: Sinhala Communication Ability: Effective Stopping Builder Required: No Beliefs That Will Affect Care: None marital status: Current Living Situation: Family Current Living Situation Comment: Grandson and Son Feels Safe at Home: Yes Assistive Devices: Denture - Upper, Denture - Lower, Glasses and Walker Allergies Allergies Allergy/AdvReac Type Severity Reaction Status Date / Time ciprofloxacin Allergy Severe Itching Unverified 03/13/21 13:13 sulfamethoxazole AdvReac Severe CAUSED Verified 07/18/20 01:19 [From Bactrim] KIDNEY PROBLEMS trimethoprim [From Bactrim] AdvReac Severe CAUSED Verified 07/18/20 01:19 KIDNEY PROBLEMS adhesive AdvReac Mild BLISTERS Verified 07/18/20 01:19 Home Meds Home Medications Medication Instructions Recorded Confirmed warfarin 2 mg tablet (Jantoven) See Rx Instructions .ROUTE .COMPLEX 12/12/17 03/13/21 albuterol sulfate 90 mcg/actuation 1 - 2 puff INHALATION DIRECTED 07/13/20 03/13/21 aerosol inhaler (Ventolin HFA) PRN amiodarone 200 mg tablet 200 mg PO HS 07/13/20 03/13/21 amlodipine 2.5 mg tablet 2.5 mg PO QAM 07/13/20 03/13/21 cyanocobalamin (vitamin B-12) 500 500 mcg PO QAM 07/13/20 03/13/21 mcg tablet (Vitamin B-12) famotidine 20 mg tablet 20 mg PO QAM 07/13/20 03/13/21 fluticasone propionate 50 2 spray INTRANASAL DAILY PRN 07/13/20 03/13/21 mcg/actuation nasal spray,suspension furosemide 20 mg tablet 20 mg PO QAM PRN 07/13/20 03/13/21 levothyroxine 50 mcg tablet 50 mcg PO QAM 07/13/20 03/13/21 metoprolol succinate 25 mg 25 mg PO HS 07/13/20 03/13/21 tablet,extended release 24 hr omeprazole 20 mg capsule,delayed 20 mg PO BID 07/13/20 03/13/21 release umeclidinium 62.5 mcg-vilanterol 1 inh INHALATION QAM 07/13/20 03/13/21 25 mcg/actuation powdr for inhalation (Anoro Ellipta) Results & Data (ED) Vital Signs Vital Signs - 24 hr 03/13/21 12:01 03/13/21 12:05 03/13/21 12:30 Temperature 36.6 C Temperature Source Oral Pulse Rate 68 68 62 Pulse Rate [Apical] Pulse Rate from SpO2 Sensor 68 61 Pulse Rhythm [Apical] Respiratory Rate 16 25 H 15 Respiratory Effort / Characteristics Respiratory Depth Respiratory Pattern Blood Pressure 114/55 L Blood Pressure [Left Arm] Blood Pressure Mean 74 Blood Pressure Mean [Left Arm] Pulse Oximetry 94 94 96 Oxygen Delivery Method Nasal Cannula Oxygen Flow Rate 2 Sepsis Recent Fever Within 48 Hours No Sepsis New/Unexplained Change in Mental Status No Sepsis Action Taken by Nursing No Action Required 03/13/21 12:57 03/13/21 13:00 03/13/21 13:04 Temperature Temperature Source Pulse Rate 83 Pulse Rate [Apical] Pulse Rate from SpO2 Sensor Pulse Rhythm [Apical] Respiratory Rate 29 H Respiratory Effort / Characteristics Non-Labored Spontaneous Respiratory Depth Normal Respiratory Pattern Regular Blood Pressure 110/64 Blood Pressure [Left Arm] Blood Pressure Mean 79 Blood Pressure Mean [Left Arm] Pulse Oximetry 96 Oxygen Delivery Method Room Air Nasal Cannula Oxygen Flow Rate 2 Sepsis Recent Fever Within 48 Hours Sepsis New/Unexplained Change in Mental Status Sepsis Action Taken by Nursing 03/13/21 13:30 03/13/21 14:00 03/13/21 14:30 Temperature Temperature Source Pulse Rate 60 60 60 Pulse Rate [Apical] Pulse Rate from SpO2 Sensor 60 60 60 Pulse Rhythm [Apical] Respiratory Rate 22 24 24 Respiratory Effort / Characteristics Respiratory Depth Respiratory Pattern Blood Pressure 98/56 L Blood Pressure [Left Arm] Blood Pressure Mean 70 Blood Pressure Mean [Left Arm] Pulse Oximetry 94 93 93 Oxygen Delivery Method Oxygen Flow Rate Sepsis Recent Fever Within 48 Hours Sepsis New/Unexplained Change in Mental Status Sepsis Action Taken by Nursing 03/13/21 15:00 03/13/21 15:30 03/13/21 16:53 Temperature Temperature Source Pulse Rate 60 60 72 Pulse Rate [Apical] 68 Pulse Rate from SpO2 Sensor 60 60 Pulse Rhythm [Apical] Regular Respiratory Rate 23 21 28 H Respiratory Effort / Characteristics Respiratory Depth Normal Respiratory Pattern Blood Pressure Blood Pressure [Left Arm] 121/59 L Blood Pressure Mean Blood Pressure Mean [Left Arm] 79 Pulse Oximetry 94 96 94 Oxygen Delivery Method Nasal Cannula Oxygen Flow Rate 3 Sepsis Recent Fever Within 48 Hours Sepsis New/Unexplained Change in Mental Status Sepsis Action Taken by Nursing Laboratory Data Result diagrams: 03/13/21 12:50 03/13/21 14:01 Lab Results 03/13/21 03/13/21 03/13/21 Range/Units 12:50 12:50 12:50 WBC 8.37 (4.8-10.8) K/uL RBC 5.29 (4.2-5.4) M/uL Hgb 16.2 H (12.0-16.0) g/dL Hct 47.5 H (37-47) % MCV 89.8 (80-100) fL MCH 30.6 (25-34) pg MCHC 34.1 (32-36) g/dL RDW Std Deviation 49.2 H (36.4-46.3) fL RDW Coeff of Cindy 14.8 H (11.5-14.5) % Plt Count 195 (130-400) K/uL MPV 11.9 H (7.4-10.4) fL Immature Gran % (Auto) 0.2 % Neut % (Auto) 81.1 % Lymph % (Auto) 13.0 % [facility] % (Auto) 5.6 % Eos % (Auto) 0.0 % Baso % (Auto) 0.1 % Neut # (Auto) 6.78 H (1.4-6.5) K/uL Lymph # (Auto) 1.09 L (1.2-3.4) K/uL [facility] # (Auto) 0.47 (0.11-0.59) K/uL Eos # (Auto) 0.00 (0-0.5) K/uL Baso # (Auto) 0.01 (0-0.2) K/uL Immature Gran # (Auto) 0.02 (0.00-0.02) K/uL PT Cancelled INR Cancelled Sodium Cancelled Potassium Cancelled Chloride Cancelled Carbon Dioxide Cancelled Anion Gap Cancelled BUN Cancelled Creatinine Cancelled Est Cr Clr Drug Dosing Cancelled Est GFR ( Amer) Cancelled Est GFR (Non-Af Amer) Cancelled BUN/Creatinine Ratio Cancelled Glucose Cancelled Lactate (0.4-2.0) mmol/L Calcium Cancelled Magnesium Cancelled Total Bilirubin Cancelled AST Cancelled ALT Cancelled Alkaline Phosphatase Cancelled Total Creatine Kinase Cancelled Troponin I Cancelled C-Reactive Protein Cancelled Total Protein Cancelled Albumin Cancelled Globulin Cancelled Albumin/Globulin Ratio Cancelled Procalcitonin (0-0.5) ng/ml TSH Cancelled Urine Color Urine Appearance (Clear) Urine pH (4.5-7.5) Ur Specific [place] (1.000-1.030) Urine Protein (Negative) Urine Glucose (UA) (Negative) Urine Ketones (Negative) Urine Blood (Negative) Urine Nitrite (Negative) Urine Bilirubin (Negative) Urine Urobilinogen (Negative) Ur Leukocyte Esterase (Negative) Urine WBC (Auto) (0-5) /hpf Urine RBC (Auto) (0-4) /hpf U Hyaline Cast (Auto) (0-5) /lpf U Epithel Cells (Auto) (0-5) /lpf Urine Bacteria (Auto) (Negative) WBC Casts (0) /lpf SARS-CoV-2 (PCR) (Negative) Influenza Type A (PCR) (Neg) Influenza Type B (PCR) (Neg) RSV (RT-PCR) (Neg) 03/13/21 03/13/21 03/13/21 Range/Units 12:50 12:50 12:50 WBC (4.8-10.8) K/uL RBC (4.2-5.4) M/uL Hgb (12.0-16.0) g/dL Hct (37-47) % MCV (80-100) fL MCH (25-34) pg MCHC (32-36) g/dL RDW Std Deviation (36.4-46.3) fL RDW Coeff of Cindy (11.5-14.5) % Plt Count (130-400) K/uL MPV (7.4-10.4) fL Immature Gran % (Auto) % Neut % (Auto) % Lymph % (Auto) % [facility] % (Auto) % Eos % (Auto) % Baso % (Auto) % Neut # (Auto) (1.4-6.5) K/uL Lymph # (Auto) (1.2-3.4) K/uL [facility] # (Auto) (0.11-0.59) K/uL Eos # (Auto) (0-0.5) K/uL Baso # (Auto) (0-0.2) K/uL Immature Gran # (Auto) (0.00-0.02) K/uL PT INR Sodium Potassium Chloride Carbon Dioxide Anion Gap BUN Creatinine Est Cr Clr Drug Dosing Est GFR ( Amer) Est GFR (Non-Af Amer) BUN/Creatinine Ratio Glucose Lactate (0.4-2.0) mmol/L Calcium Magnesium Total Bilirubin AST ALT Alkaline Phosphatase Total Creatine Kinase Troponin I C-Reactive Protein Cancelled Total Protein Albumin Globulin Albumin/Globulin Ratio Procalcitonin 0.07 (0-0.5) ng/ml TSH Urine Color Urine Appearance (Clear) Urine pH (4.5-7.5) Ur Specific [place] (1.000-1.030) Urine Protein (Negative) Urine Glucose (UA) (Negative) Urine Ketones (Negative) Urine Blood (Negative) Urine Nitrite (Negative) Urine Bilirubin (Negative) Urine Urobilinogen (Negative) Ur Leukocyte Esterase (Negative) Urine WBC (Auto) (0-5) /hpf Urine RBC (Auto) (0-4) /hpf U Hyaline Cast (Auto) (0-5) /lpf U Epithel Cells (Auto) (0-5) /lpf Urine Bacteria (Auto) (Negative) WBC Casts (0) /lpf SARS-CoV-2 (PCR) POSITIVE A* (Negative) Influenza Type A (PCR) Negative (Neg) Influenza Type B (PCR) Negative (Neg) RSV (RT-PCR) Negative (Neg) 03/13/21 03/13/21 03/13/21 Range/Units 14:01 14:01 14:01 WBC (4.8-10.8) K/uL RBC (4.2-5.4) M/uL Hgb (12.0-16.0) g/dL Hct (37-47) % MCV (80-100) fL MCH (25-34) pg MCHC (32-36) g/dL RDW Std Deviation (36.4-46.3) fL RDW Coeff of Cindy (11.5-14.5) % Plt Count (130-400) K/uL MPV (7.4-10.4) fL Immature Gran % (Auto) % Neut % (Auto) % Lymph % (Auto) % [facility] % (Auto) % Eos % (Auto) % Baso % (Auto) % Neut # (Auto) (1.4-6.5) K/uL Lymph # (Auto) (1.2-3.4) K/uL [facility] # (Auto) (0.11-0.59) K/uL Eos # (Auto) (0-0.5) K/uL Baso # (Auto) (0-0.2) K/uL Immature Gran # (Auto) (0.00-0.02) K/uL PT 14.8 H INR 1.5 H Sodium 133 L Potassium 4.0 Chloride 104 Carbon Dioxide 21 Anion Gap 8.0 BUN 25 H Creatinine 1.00 Est Cr Clr Drug Dosing 50.4 Est GFR ( Amer) 64.7 Est GFR (Non-Af Amer) 55.8 BUN/Creatinine Ratio 25.3 H Glucose 109 H Lactate 1.7 (0.4-2.0) mmol/L Calcium 8.4 L Magnesium 2.4 Total Bilirubin 0.9 AST 344 H ALT 149 H Alkaline Phosphatase 160 H Total Creatine Kinase 283 H Troponin I < 0.015 C-Reactive Protein 9.89 H Total Protein 6.9 Albumin 2.6 L Globulin 4.3 H Albumin/Globulin Ratio 0.6 L Procalcitonin (0-0.5) ng/ml TSH 1.190 Urine Color Urine Appearance (Clear) Urine pH (4.5-7.5) Ur Specific [place] (1.000-1.030) Urine Protein (Negative) Urine Glucose (UA) (Negative) Urine Ketones (Negative) Urine Blood (Negative) Urine Nitrite (Negative) Urine Bilirubin (Negative) Urine Urobilinogen (Negative) Ur Leukocyte Esterase (Negative) Urine WBC (Auto) (0-5) /hpf Urine RBC (Auto) (0-4) /hpf U Hyaline Cast (Auto) (0-5) /lpf U Epithel Cells (Auto) (0-5) /lpf Urine Bacteria (Auto) (Negative) WBC Casts (0) /lpf SARS-CoV-2 (PCR) (Negative) Influenza Type A (PCR) (Neg) Influenza Type B (PCR) (Neg) RSV (RT-PCR) (Neg) 03/13/21 Range/Units 15:55 WBC (4.8-10.8) K/uL RBC (4.2-5.4) M/uL Hgb (12.0-16.0) g/dL Hct (37-47) % MCV (80-100) fL MCH (25-34) pg MCHC (32-36) g/dL RDW Std Deviation (36.4-46.3) fL RDW Coeff of Cindy (11.5-14.5) % Plt Count (130-400) K/uL MPV (7.4-10.4) fL Immature Gran % (Auto) % Neut % (Auto) % Lymph % (Auto) % [facility] % (Auto) % Eos % (Auto) % Baso % (Auto) % Neut # (Auto) (1.4-6.5) K/uL Lymph # (Auto) (1.2-3.4) K/uL [facility] # (Auto) (0.11-0.59) K/uL Eos # (Auto) (0-0.5) K/uL Baso # (Auto) (0-0.2) K/uL Immature Gran # (Auto) (0.00-0.02) K/uL PT INR Sodium Potassium Chloride Carbon Dioxide Anion Gap BUN Creatinine Est Cr Clr Drug Dosing Est GFR ( Amer) Est GFR (Non-Af Amer) BUN/Creatinine Ratio Glucose Lactate (0.4-2.0) mmol/L Calcium Magnesium Total Bilirubin AST ALT Alkaline Phosphatase Total Creatine Kinase Troponin I C-Reactive Protein Total Protein Albumin Globulin Albumin/Globulin Ratio Procalcitonin (0-0.5) ng/ml TSH Urine Color Dark Yellow Urine Appearance Cloudy A (Clear) Urine pH 5.5 (4.5-7.5) Ur Specific [place] 1.023 (1.000-1.030) Urine Protein 1+ H (Negative) Urine Glucose (UA) Negative (Negative) Urine Ketones 2+ H (Negative) Urine Blood Negative (Negative) Urine Nitrite Positive A (Negative) Urine Bilirubin Negative (Negative) Urine Urobilinogen Positive H (Negative) Ur Leukocyte Esterase Trace H (Negative) Urine WBC (Auto) 5-10 H (0-5) /hpf Urine RBC (Auto) 0-4 (0-4) /hpf U Hyaline Cast (Auto) 0 (0-5) /lpf U Epithel Cells (Auto) >30 H (0-5) /lpf Urine Bacteria (Auto) 4+ H (Negative) WBC Casts 5-10 H (0) /lpf SARS-CoV-2 (PCR) (Negative) Influenza Type A (PCR) (Neg) Influenza Type B (PCR) (Neg) RSV (RT-PCR) (Neg) Administered Medications Discontinued Medications Dexamethasone Sodium Phosphate (DexamethasonePf 10 Mg/Ml Vial) 6 mg IV NOW ONE Stop: 03/13/21 14:13 Last Admin: 03/13/21 15:33 Dose: 6 mg Documented by: [id number] Sodium Chloride (Nss) 500 mls @ 999 mls/hr IV .Q31M [place] Stop: 03/13/21 13:00 Last Infusion: 03/13/21 17:03 Dose: 0 mls/hr Documented by: [id number] Admin: 03/13/21 13:06 Dose: 999 mls/hr Documented by: [id number] Imaging Data Radiologist's Impression: Chest X-Ray 03/13/21 12:18 XR chest 1V portable CLINICAL HISTORY: weakness COMPARISON STUDY: Chest CT September 08, 2017. Chest radiograph December 01, 2017. FINDINGS: Dual lead left subclavian pacemaker is in place. There is no pneumothorax or pleural effusion. Cardiomediastinal silhouette is stable. Moderate right upper lung airspace opacity is present. There is mild right lower lung opacity. IMPRESSION: Moderate right lung airspace opacities which favor an infectious process. Radiographic follow-up to ensure resolution is recommended. ACT 112: Negative or not required by law. Electronically signed by: Sunil Kramer M.D. 03/13/2021 12:39 PM Discharge Plan Visit Data Chief Complaint: Shortness of Breath/Dyspnea ED Provider: Sam Almanzar Discharge Problem: Pneumonia due to COVID-19 virus, Transaminitis, Hypoxia, Acute UTI Patient Disposition: Being Evaluated by Hospitalist Forms Stand Alone Forms: My [facility] Prescriptions Prescriptions: No Action warfarin [Jantoven] 2 mg Tablet See Rx Instructions .ROUTE .COMPLEX RF: 0 amiodarone 200 mg tablet 200 mg PO HS RF: 0 amlodipine 2.5 mg tablet 2.5 mg PO QAM RF: 0 famotidine 20 mg tablet 20 mg PO QAM RF: 0 levothyroxine 50 mcg tablet 50 mcg PO QAM RF: 0 omeprazole 20 mg capsule,delayed release(DR/EC) 20 mg PO BID RF: 0 furosemide 20 mg tablet 20 mg PO QAM PRN (Reason: Edema) RF: 0 metoprolol succinate 25 mg tablet extended release 24 hr 25 mg PO HS RF: 0 albuterol sulfate [Ventolin HFA] 90 mcg/actuation HFA aerosol inhaler 1 - 2 puff INHALATION DIRECTED PRN (Reason: Shortness Of Breath Or Wheezing) RF: 0 fluticasone propionate 50 mcg/actuation [place],Suspension 2 spray INTRANASAL DAILY PRN (Reason: Nasal Congestion) RF: 0 Anoro Ellipta 62.5-25 mcg/actuation blister with device 1 inh INHALATION QAM RF: 0 cyanocobalamin (vitamin B-12) [Vitamin B-12] 500 mcg Tablet 500 mcg PO QAM RF: 0 Referrals Referrals: Venu Olivera DO [Physician] -
[2021-03-13 13:09] LABS: Basophils # (auto) 0.01 K/uL (0-0.2); Basophils % (auto) 0.1 %; Hematocrit (blood only) 47.5 % (37-47); Hemoglobin 16.2 g/dL (12.0-16.0); Immature Granulocytes # (auto) 0.02 K/uL (0.00-0.02); Immature Granulocytes % (auto) 0.2 %; Lymphocytes # (auto) 1.09 K/uL (1.2-3.4); Mean Corpuscular Hemoglobin 30.6 pg (25-34); Mean Corpuscular Hgb Conc 34.1 g/dL (32-36); Mean Corpuscular Volume 89.8 fL (80-100); Mean Platelet Volume 11.9 fL (7.4-10.4); Monocytes # (auto) 0.47 K/uL (0.11-0.59); Monocytes % (auto) 5.6 %; Neutrophils # (auto) 6.78 K/uL (1.4-6.5); Neutrophils % (auto) 81.1 %; Platelet Count 195 K/uL (130-400); RDW Coefficient of Variation 14.8 % (11.5-14.5); RDW Standard Deviation 49.2 fL (36.4-46.3); Red Blood Count 5.29 M/uL (4.2-5.4); White Blood Count 8.37 K/uL (4.8-10.8)
[2021-03-13 13:44] LABS: Influenza A virus by PCR Negative (Neg); Influenza B virus by PCR Negative (Neg); RSV by PCR Negative (Neg)
[2021-03-13] MEDS ORDERED: dexAMETHasone**PF** 10 MG/ML VIAL IV ONE (14:12)
[2021-03-13 14:32] LABS: INR 1.5 (0.9-1.1); Prothrombin Time 14.8 Seconds (9.0-12.0)
[2021-03-13 14:49] LABS: Alanine Aminotransferase 149 (12-78); Albumin Level 2.6 gm/dl (3.4-5.0); Aspartate Aminotransferase 344 U/L (15-37); BUN Creatinine Ratio 25.3 (10-20); Blood Urea Nitrogen 25 mg/dl (7-18); Calcium 8.4 mg/dl (8.5-10.1); Carbon Dioxide 21 mmol/L (21-32); Chloride 104 mmol/L (98-107); Creatinine Clr Calc Pharmacy 50.4 ml/min; Est GFR (African American) 64.7 ml/min; Est GFR (Non-African American) 55.8 ml/min; Glucose 109 mg/dl (70-99); Magnesium 2.4 mg/dl (1.8-2.4); Sodium 133 mmol/L (136-145)
[2021-03-13 14:57] LABS: Albumin Globulin Ratio 0.6 (0.9-2); Alkaline Phosphatase 160 U/L (45-117); Bilirubin,Total 0.9 mg/dl (0.2-1); C Reactive Protein 9.89 mg/dl (0-0.29); Creatine Kinase 283 U/L (26-192); Globulin 4.3 gm/dl (2.5-4.0); Total Protein 6.9 gm/dl (6.4-8.2); Troponin I < 0.015 ng/ml (0-0.045)
--- NOTE | 2021-03-13 15:07 | History & Physical Report ---
Date of Service March 13, 2021 Assessment & Plan (1) Hypoxia: (2) Pneumonia due to COVID-19 virus: (3) COPD (chronic obstructive pulmonary disease): (4) Transaminitis: (5) Thrush: (6) Atrial fibrillation: (7) Tachy-silvestre syndrome: (8) Hypertension: (9) Tobacco abuse: (10) CKD (chronic kidney disease) stage 3, GFR 30-59 ml/min: Plan: This is a 75-year-old female who has known past medical history of atrial fibrillation anticoagulated on warfarin, TBS status post PPM, chronic diastolic CHF, COPD, chronic tobacco abuse here, aortic valve stenosis, CKD stage III who presents to ED secondary to ill feeling and short of breath x1 week. Hypoxia Pneumonia due to COVID-19 COPD Admit to medical Dexamethasone IV 6 mg daily Does not meet criteria for remdesivir secondary to LFTs No acute COPD exacerbation Pulmonary toilet with incentive spirometry, flutter valve and nebs Encourage frequent position change in self proning, patient states unable to lie on belly Covid precautions CRP 9.89, pro-Bharathi 0.07 give gentle IVF x 1 L due to dehydration Transaminitis AST 344, ALT 149, alkaline phosphatase 160, CK 283 Possibly in setting of Covid No GI complaints Repeat LFT in a.m., monitor closely in setting of amiodarone use Hepatitis panel Thrush clotrimazole troch prn magic swizzle swish and spit for pain Afib TBS s/p ppm continue amio, metoprolol INR subtherapeutic Supplement with Lovenox 1mg/kg twice daily until INR greater than 2 Give warfarin 2 mg daily Home regimen is 1mg mwf, 2mg all other days; has not taken in 2 days due to ill feeling Abnormal UA pt is w/o symptoms, wbc wnl received rocephin in ED follow urine culture HTN continue metoprolol hold amlodipine given lower bp, resume when able Hx of DCHF Aortic valve stenosis monitor daily weight, strict intake/outpt takes lasix prn at home currently on dry side monitor closely CKD-3 baseline cr stable monitor give 1L gentle IVF due to appearing dry Tobacco abuse has not smoked in 1-1.5 week due to ill feeling does not require nicotine patch DVT ppx: SQ Lovenox 1mg/kg q12hr and warfarin until INR > 2 Dispo:admit to med/surg PCP: [facility] Conditional code: no CPR/mech vent; cpap/bipap ok Pt was seen and examined in collaboration with Dr. Ramirez, please see addendum The chart was completed utilizing [employer] Speech voice recognition software. Grammatical errors, random word insertions, pronoun errors, and incomplete sentences are an occasional consequence of this system due to software limitations, ambient noise, and hardware issues. Any formal questions or concerns about the content, text, or information contained within the body of this dictation should be directly addressed to the provider for clarification.. History of Present Illness Chief Complaint: Ill feeling and SOB x 1 week. Primary Care Provider: Fly Esteves MD This is a 75-year-old female who has known past medical history of atrial fibrillation anticoagulated on warfarin, TBS status post PPM, chronic diastolic CHF, COPD, chronic tobacco abuse here, aortic valve stenosis, CKD stage III who presents to ED secondary to ill feeling and short of breath x1 week. She began to develop symptoms of dry cough, chills, shortness of breath, poor appetite, sore tongue and mouth and lightheadedness approximately 1 week ago. Her symptoms persistently worsen especially her shortness of breath. Today she had difficulty catching breath and therefore presented to ED. She is unvaccinated. Known sick contacts at home with son and grandson. Denies documented fever, sweats, dizziness, syncope, chest pain, palpitations, abdominal pain, dysuria, increased urgency or frequency of urination, melena or hematochezia. When symptoms first started she did have episode of diarrhea as well as nausea and vomiting but this has since resolved. In ED patient was hypoxic requiring 2 to 3 L of oxygen. Her lab work was significant for H&H 16.2 and 47.5, platelet 195, INR 1.5, sodium 133, BUN 25, creatinine 1.0, AST 344, ALT 149, alk phos 160, CK 283, CRP 9.89 and positive for SARS-CoV-2.Her chest x-ray was consistent with moderate right lung airspace opacities favoring an infectious process. She received IV fluids, oral Magic swizzle and IV dexamethasone. Allergies Allergy/AdvReac Type Severity Reaction Status Date / Time ciprofloxacin Allergy Severe Itching Unverified 03/13/21 13:13 sulfamethoxazole AdvReac Severe CAUSED Verified 07/18/20 01:19 [From Bactrim] KIDNEY PROBLEMS trimethoprim [From Bactrim] AdvReac Severe CAUSED Verified 07/18/20 01:19 KIDNEY PROBLEMS adhesive AdvReac Mild BLISTERS Verified 07/18/20 01:19 Home Medications Medication Instructions Recorded Confirmed Type warfarin 2 mg tablet (Jantoven) See Rx Instructions .ROUTE .COMPLEX 12/12/17 03/13/21 History albuterol sulfate 90 mcg/actuation 1 - 2 puff INHALATION DIRECTED 07/13/20 03/13/21 History aerosol inhaler (Ventolin HFA) PRN amiodarone 200 mg tablet 200 mg PO HS 07/13/20 03/13/21 History amlodipine 2.5 mg tablet 2.5 mg PO QAM 07/13/20 03/13/21 History cyanocobalamin (vitamin B-12) 500 500 mcg PO QAM 07/13/20 03/13/21 History mcg tablet (Vitamin B-12) famotidine 20 mg tablet 20 mg PO QAM 07/13/20 03/13/21 History fluticasone propionate 50 2 spray INTRANASAL DAILY PRN 07/13/20 03/13/21 History mcg/actuation nasal spray,suspension furosemide 20 mg tablet 20 mg PO QAM PRN 07/13/20 03/13/21 History levothyroxine 50 mcg tablet 50 mcg PO QAM 07/13/20 03/13/21 History metoprolol succinate 25 mg 25 mg PO HS 07/13/20 03/13/21 History tablet,extended release 24 hr omeprazole 20 mg capsule,delayed 20 mg PO BID 07/13/20 03/13/21 History release umeclidinium 62.5 mcg-vilanterol 1 inh INHALATION QAM 07/13/20 03/13/21 History 25 mcg/actuation powdr for inhalation (Anoro Ellipta) Past Med/Surg History Medical History Abdominal aneurysm Acute left lumbar radiculopathy Ambulatory dysfunction Anticoagulated on warfarin Atrial fibrillation CKD (chronic kidney disease) stage 3, GFR 30-59 ml/min Colonic diverticular abscess COPD (chronic obstructive pulmonary disease) Diverticulosis GERD (gastroesophageal reflux disease) Hypertension Intractable low back pain Tachy-silvestre syndrome Tobacco abuse Surgical History H/O tubal ligation History of cardiac pacemaker "10/04/17 Dr. De" History of colonoscopy with polypectomy History of lumpectomy of left breast History of partial colectomy "secondary to diverticulitis" History of tubal ligation Family History Mother Colorectal cancer Myocardial infarction Diabetes Father Diabetes Sister Skin cancer Social History (Updated 03/13/21 @ 15:11 by Samantha Freeman PA-C) Smoking Status: Current every day smoker Tobacco Type: Cigarettes Years Smoked: 60; Cigarettes Per Day: 10; Second Hand Exposure: Yes; Hx Alcohol Use: No Hx Substance Use: No Preferred Language: Yi Communication Ability: Effective Security Door Installer Required: No Beliefs That Will Affect Care: None marital status: Current Living Situation: Family Current Living Situation Comment: Grandson and Son Feels Safe at Home: Yes Assistive Devices: Denture - Upper, Denture - Lower, Glasses and Walker Review of Systems Review of Systems: All systems reviewed & are unremarkable except as noted in HPI & below Physical Exam Physical Exam: Constitutional: WD/WN, appears older than stated age, appears weak, ill but nontoxic appearing, vitals as above, NAD, sitting up in bed, pleasant, conversing easily Head: Normocephalic, Atraumatic Eyes: PERRL, conjunctivae normal, anicteric sclerae ENMT: external ear and nose normal, oropharynx dry membranes, +thrush, erythematous beefy red tongue with white patches Neck: trachea midline, no thyromegaly normal visual inspection Respiratory: normal respiratory effort, lungs clear to auscultation, decreased BS at bases, no wheeze, rales, rhonchi. Normal insp/exp effort, no accessory muscle use Cardiovascular: RRR, no murmur, no edema Vessels: no JVD or carotid bruit Chest: normal inspection of chest Abdomen: normal bowel sounds, soft, nontender, no hepatosplenomegaly Musculoskeletal: no cyanosis or clubbing, extremities motor strength 5/5 Skin: no rashes, warm and dry normal turgor Neurologic: PERRL, EOMI, accommodation nl, no face palsy, no dysarthria CN's II-XI intact bilaterally and moves all extremities Psychiatric: A+Ox3, euthymic affect Lymphatic: no cervical or axillary lymphadenopathy : deferred Results & Data Results & Data ([place]) Vital Signs (Past 12 Hours) Vital Signs Temp Pulse Resp BP Pulse Ox 03/13/21 14:00 60 24 93 03/13/21 13:30 60 22 98/56 L 94 03/13/21 13:04 96 03/13/21 13:00 83 29 H 110/64 03/13/21 12:30 62 15 96 03/13/21 12:05 68 25 H 94 03/13/21 12:01 36.6 C 68 16 114/55 L 94 Diagnostic Findings Chest X-Ray 03/13/21 12:18 XR chest 1V portable CLINICAL HISTORY: weakness COMPARISON STUDY: Chest CT September 08, 2017. Chest radiograph December 01, 2017. FINDINGS: Dual lead left subclavian pacemaker is in place. There is no pneumothorax or pleural effusion. Cardiomediastinal silhouette is stable. Moderate right upper lung airspace opacity is present. There is mild right lower lung opacity. IMPRESSION: Moderate right lung airspace opacities which favor an infectious process. Radiographic follow-up to ensure resolution is recommended. ACT 112: Negative or not required by law. Electronically signed by: Sunil Kramer M.D. 03/13/2021 12:39 PM Medications Administered Medication List Discontinued Medications Sodium Chloride (Nss) 500 mls @ 999 mls/hr IV .Q31M [place] Stop: 03/13/21 13:00 Last Admin: 03/13/21 13:06 Dose: 999 mls/hr Documented by: [id number] ECG Rate (beats per minute): 66 Rhythm: other (atrial paced) COVID-19 Results Results COVID-19 Adm Lab Results: RBC 5.29 M/uL (4.2-5.4) 03/13/21 WBC 8.37 K/uL (4.8-10.8) 03/13/21 Hgb 16.2 g/dL (12.0-16.0) H 03/13/21 Hct 47.5 % (37-47) H 03/13/21 Plt Count 195 K/uL (130-400) 03/13/21 Neutrophils (%) (Auto) 81.1 % 03/13/21 Lymphocytes (%) (Auto) 13.0 % 03/13/21 Monocytes # (Auto) 0.47 K/uL (0.11-0.59) 03/13/21 Eosinophils # (Auto) 0.00 K/uL (0-0.5) 03/13/21 Immature Granulocyte % (Auto) 0.2 % 03/13/21 Neutrophils # (Auto) 6.78 K/uL (1.4-6.5) H 03/13/21 Lymphocytes # (Auto) 1.09 K/uL (1.2-3.4) L 03/13/21 Monocytes # (Auto) 0.47 K/uL (0.11-0.59) 03/13/21 Eosinophils # (Auto) 0.00 K/uL (0-0.5) 03/13/21 Basophils # (Auto) 0.01 K/uL (0-0.2) 03/13/21 Immature Granulocyte # (Auto) 0.02 K/uL (0.00-0.02) 03/13/21 Na 133 mmol/L (136-145) L 03/13/21 K 4.0 mmol/L (3.5-5.1) 03/13/21 Cl 104 mmol/L (98-107) 03/13/21 CO2 21 mmol/L (21-32) 03/13/21 Anion Gap 8.0 (3-11) 03/13/21 BUN 25 mg/dl (7-18) H 03/13/21 Creatinine 1.00 mg/dl (0.6-1.2) 03/13/21 BUN/Creatinine Ratio 25.3 (10-20) H 03/13/21 Glucose Level 109 mg/dl (70-99) H 03/13/21 Ca 8.4 mg/dl (8.5-10.1) L 03/13/21 Total Bilirubin 0.9 mg/dl (0.2-1) 03/13/21 AST/SGOT 344 U/L (15-37) H 03/13/21 ALT/SGPT 149 (12-78) H 03/13/21 Alkaline Phosphatase 160 U/L (45-117) H 03/13/21 Total Protein 6.9 gm/dl (6.4-8.2) 03/13/21 Albumin 2.6 gm/dl (3.4-5.0) L 03/13/21 Globulin 4.3 gm/dl (2.5-4.0) H 03/13/21 Albumin/Globulin Ratio 0.6 (0.9-2) L 03/13/21 Total CK 283 U/L (26-192) H 03/13/21 Troponin I < 0.015 ng/ml (0-0.045) 03/13/21 CRP 9.89 mg/dl (0-0.29) H 03/13/21 Procalcitonin 0.07 ng/ml (0-0.5) 03/13/21 INR 1.5 (0.9-1.1) H 03/13/21 COVID-19 PCR POSITIVE (Negative) A* 03/13/21 Influenza Virus Type A (PCR) Negative (Neg) 03/13/21 Influenza Virus Type B (PCR) Negative (Neg) 03/13/21 Chest X-Ray 03/13/21 Code Status & VTE Plan Code Status Conditional Code No CPR/Mech Ventilation Ok with CPAP/BIPAP, iv antibiotics, fluids VTE Prophylaxis Plan VTE Prophylaxis will be ordered: No Supervising Physician Co-Signing Physician Notes History and physical exam performed by me as detailed by Samantha Freeman PA-C Notable for 75 yo F who presented feeling ill , cough and shortness of breath x 1 week Physical exam notable for elderly woman in no obvious distress, coughing, on 3 L/min nasal oxygen, diminished breath sounds right basis Labs notable for hemoglobin of 16.2, INR of 1.5, AST of 344, ALT of 149, alk phos of 160, CRP of 9.89 Chest x-ray showed moderate right lung airspace opacities. COVID-19 pneumonia Acute hypoxic respiratory failure Transaminitis. Continue oxygen supplementation Educated on self proning. Incentive spirometry flutter Continue dexamethasone. Hold off remdesivir for now in view of elevated LFTs Monitor LFTs. INR is subtherapeutic. We will do Lovenox warfarin bridge for now. UA suggest possible UTI. However, patient has no symptoms. Got ceftriaxone in ER. Follow-up urine culture Agree with other plans as detailed by Samantha Freeman PA-C
[2021-03-13 16:10] LABS: Appearance Urine Cloudy (Clear); Bacteria Urine Automated 4+ (Negative); Bilirubin Urine Negative (Negative); Blood Urine Negative (Negative); Color Urine Dark Yellow; Epithelial Cell Urine Auto >30 /lpf (0-5); Glucose Urine UA Negative (Negative); Ketones Urine 2+ (Negative); Leukocyte Esterase Urine Trace (Negative); Nitrite Urine Positive (Negative); Protein Urine 1+ (Negative); RBC Urine Automated 0-4 /hpf (0-4); Specific Gravity Urine 1.023 (1.000-1.030); Urobilinogen Urine Positive (Negative); pH Urine 5.5 (4.5-7.5)
[2021-03-13 16:19] LABS: Cast Urine Automated 0 /lpf (0-5)
[2021-03-13] MEDS ORDERED: cefTRIAXone SODIUM 2,000 MG/70 ML BAG IV STA (17:17)
[2021-03-13] MEDS ORDERED: ACETAMINOPHEN 325 MG TAB PO PRN (17:51)
[2021-03-13] MEDS ORDERED: ONDANSETRON INJ 2 MG/ML 2 ML VIAL IV PRN (17:51)
[2021-03-13] MEDS ORDERED: ALUMINUM/MAGNESIUM SUSP 30 ML UDC PO PRN (17:51)
[2021-03-13] MEDS ORDERED: POLYETHYLENE (MIRALAX) 17 GM PACK PO PRN (17:51)
[2021-03-13] MEDS ORDERED: MAGNESIUM HYDROXIDE SUSP 30 ML UDC PO PRN (17:51)
[2021-03-13] MEDS ORDERED: SODIUM CHLORIDE 0.9% 1000ML 1,000 ML IV SCH (17:51)
[2021-03-13] MEDS ORDERED: guaiFENesin/DEXTROM SYRUP 200MG/20MG 10ML UDC PO PRN (17:51)
[2021-03-13] MEDS: ALBUT/IPRATROP 3MG/0.5MG NEB 3 ML VIAL NEB SCH (18:08)
[2021-03-13] MEDS: CLOTRIMAZOLE 10 MG TROCHE BUCCAL SCH ×2 (22:16→22:24)
[2021-03-13] MEDS: AMIODARONE 200 MG TAB PO SCH (22:16)
[2021-03-13] MEDS: ENOXAPARIN 80 MG/0.8 ML SYR SQ SCH (22:17)
[2021-03-13] MEDS: BENZONATATE 100 MG CAPSULE PO SCH (22:24)
[2021-03-13] MEDS: PANTOprazole 40 MG TAB PO SCH (22:48)
[2021-03-13] MEDS: METOPROLOL SUCC 25MG EXT REL TAB PO SCH (22:48)
[2021-03-13] MEDS: WARFARIN SOD 2 MG TAB PO SCH (22:49)
[2021-03-13] MEDS: ALUMINUM/MAGNESIUM SUSP 50 ML, diphenhydrAMINE Syrup 125 MG, LIDOCAINE VISCOUS 2% SOLN ... PO PRN (22:51)
[2021-03-14] MEDS: LEVOTHYROXINE SODIUM 50 MCG TABLET PO SCH (05:37)
[2021-03-14] MEDS: ALUMINUM/MAGNESIUM SUSP 50 ML, diphenhydrAMINE Syrup 125 MG, LIDOCAINE VISCOUS 2% SOLN ... PO PRN ×2 (05:39→14:49)
[2021-03-14] MEDS: ALBUT/IPRATROP 3MG/0.5MG NEB 3 ML VIAL NEB SCH ×4 (07:33→20:39)
[2021-03-14] MEDS: PANTOprazole 40 MG TAB PO SCH ×2 (08:57→20:59)
[2021-03-14] MEDS: CYANOCOBALAMIN 500 MCG TABLET (VITAMIN B-12) PO SCH (08:57)
[2021-03-14] MEDS: CLOTRIMAZOLE 10 MG TROCHE BUCCAL SCH ×5 (08:57→22:23)
[2021-03-14] MEDS: FAMOTIDINE 20 MG TAB PO SCH (08:57)
[2021-03-14] MEDS: ENOXAPARIN 80 MG/0.8 ML SYR SQ SCH ×2 (08:58→21:00)
[2021-03-14] MEDS: dexAMETHasone 6 MG in SYRINGE 0 ML IV SCH (09:00)
[2021-03-14] MEDS: UMECLIDINIUM/VILANTEROL 62.5/25MCG 7 PUFFS/INHALER INH SCH (10:25)
[2021-03-14] MEDS: BENZONATATE 100 MG CAPSULE PO SCH ×3 (10:32→20:59)
[2021-03-14 11:28] LABS: Basophils # (auto) 0.01 K/uL (0-0.2); Basophils % (auto) 0.2 %; Hemoglobin 14.6 g/dL (12.0-16.0); Immature Granulocytes # (auto) 0.02 K/uL (0.00-0.02); Immature Granulocytes % (auto) 0.3 %; Lymphocytes # (auto) 0.83 K/uL (1.2-3.4); Lymphocytes % (auto) 13.5 %; Mean Corpuscular Hgb Conc 33.2 g/dL (32-36); Mean Corpuscular Volume 90.3 fL (80-100); Mean Platelet Volume 11.5 fL (7.4-10.4); Monocytes # (auto) 0.54 K/uL (0.11-0.59); Monocytes % (auto) 8.8 %; Neutrophils # (auto) 4.73 K/uL (1.4-6.5); Neutrophils % (auto) 77.2 %; Platelet Count 191 K/uL (130-400); RDW Coefficient of Variation 14.5 % (11.5-14.5); RDW Standard Deviation 48.3 fL (36.4-46.3); Red Blood Count 4.87 M/uL (4.2-5.4); White Blood Count 6.13 K/uL (4.8-10.8)
[2021-03-14 11:40] LABS: INR 1.8 (0.9-1.1); Prothrombin Time 17.2 Seconds (9.0-12.0)
[2021-03-14 12:18] LABS: Albumin Globulin Ratio 0.6 (0.9-2); Albumin Level 2.4 gm/dl (3.4-5.0); BUN Creatinine Ratio 25.7 (10-20); Bilirubin,Total 0.8 mg/dl (0.2-1); Calcium 8.4 mg/dl (8.5-10.1); Est GFR (African American) 100.1 ml/min; Est GFR (Non-African American) 86.4 ml/min; Total Protein 6.4 gm/dl (6.4-8.2)
--- NOTE | 2021-03-14 12:55 | Electrocardiogram Report ---
Test Reason : Blood Pressure : / mmHG Vent. Rate : 066 BPM Atrial Rate : 300 BPM P-R Int : 000 ms QRS Dur : 074 ms QT Int : 460 ms P-R-T Axes : 063 010 058 degrees QTc Int : 482 ms Atrial-paced rhythm Abnormal ECG When compared with ECG of 03-DEC-2017 06:42, No significant change was found Confirmed by Darshan Beaver ([id number]) on 03/14/2021 12:54:45 PM Referred By: REFERRED SELF Confirmed By:Darshan Beaver
--- NOTE | 2021-03-14 15:15 | Hospitalist Progress Note ---
Date of Service March 14, 2021 Assessment & Plan (1) Hypoxia: (2) Pneumonia due to COVID-19 virus: (3) COPD (chronic obstructive pulmonary disease): (4) Transaminitis: (5) Thrush: (6) Atrial fibrillation: (7) Tachy-silvestre syndrome: (8) Hypertension: (9) Tobacco abuse: (10) CKD (chronic kidney disease) stage 3, GFR 30-59 ml/min: Plan: Patient is a 75 yr female who has known past medical history of atrial fibrillation anticoagulated on warfarin, TBS status post PPM, chronic diastolic CHF, COPD, chronic tobacco abuse here, aortic valve stenosis, CKD stage III who presents to ED secondary to ill feeling and short of breath x1 week. Pneumonia due to COVID-19 Hypoxia H/O COPD --CXR:Moderate right lung airspace opacities which favor an infectious process. Radiographic follow-up to ensure resolution is recommended. Continue Dexamethasone Day #2 No remdesivir secondary to elevated LFTs No acute COPD exacerbation Pulmonary toilet Encourage to prone CRP 9.89, pro-Bharathi 0.07 Continue supplemental oxygen as needed Lasix as needed Transaminitis Possibly due to Covid LFTs trending down Hepatitis panel pending Monitor LFTs Thrush Continue clotrimazole troch Afib TBS s/p ppm continue amiodarone, metoprolol INR subtherapeutic: 1.8 Continue Lovenox until INR is therapeutic Continue Coumadin Monitor INR Urinary tract infection Urine culture growing gram-negative bacilli Continue Rocephin #2 HTN continue metoprolol hold amlodipine for now H/O diastolic CHF Aortic valve stenosis monitor volume status on lasix prn at home Resume Lasix as able CKD III Creatinine at baseline Monitor renal function Tobacco abuse has not smoked in 1-1.5 week due to ill feeling 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 DVT px: SQ Lovenox, Coumadin CODE STATUS Conditional code: no CPR/mech vent; Agrees with cpap/bipap use Admission and Anticipated Discharge Date Admission Date: March 13, 2021 Subjective Patient is seen and examined bedside States feeling better today Reports cough with expectoration Denies any dyspnea, chest pain, dizziness, nausea, abdominal pain Offers no other complaints Currently on 3 L supplemental oxygen Review of Systems Review of Systems: All systems reviewed & are unremarkable except as noted in Subjective Physical Exam Physical Exam: Physical Exam: Vitals signs as noted above General Appearance:Moderately built and nourished, no apparent distress Head: normocephalic, Atraumatic Eyes: normal inspection, EOMI Neck: supple, Trachea midline Respiratory/Chest: Decreased breath sounds, CTA Cardiovascular: S1, S2, No murmur Abdomen/GI:Soft, Non tender, Bowel sounds present Extremities/Musculoskeletal:normal inspection, no edema Neurologic/Psych:AAOX3, grossly no focal neurological deficits Skin: normal color, warm Results & Data Results & Data ([facility]) Vital Signs (Past 12 Hours) Vital Signs Temp Pulse Resp BP Pulse Ox 03/14/21 14:30 80 20 94 03/14/21 10:30 91 H 20 92 03/14/21 07:43 36.5 C 91 H 20 119/70 92 03/14/21 07:35 91 H 18 92 Laboratory Results Short CBC 03/14/21 Range/Units 10:50 WBC 6.13 (4.8-10.8) K/uL Hgb 14.6 (12.0-16.0) g/dL Hct 44.0 (37-47) % Plt Count 191 (130-400) K/uL BMP 03/14/21 10:50 Sodium 138 Potassium 4.0 Chloride 108 H Carbon Dioxide 21 BUN 18 Creatinine 0.69 D Glucose 159 H Calcium 8.4 L Liver Function 03/14/21 Range/Units 10:50 Total Bilirubin 0.8 (0.2-1) mg/dl AST 210 H (15-37) U/L ALT 117 H (12-78) Alkaline Phosphatase 138 H (45-117) U/L Albumin 2.4 L (3.4-5.0) gm/dl Urine 03/13/21 Range/Units 15:55 Urine Color Dark Yellow Urine Appearance Cloudy A (Clear) Urine pH 5.5 (4.5-7.5) Ur Specific [place] 1.023 (1.000-1.030) Urine Protein 1+ H (Negative) Urine Glucose (UA) Negative (Negative)
[2021-03-14] MEDS: cefTRIAXone SODIUM 2,000 MG in DEXTROSE 5% 50 ML IV SCH (16:14)
[2021-03-14] MEDS: WARFARIN SOD 2 MG TAB PO SCH (16:19)
[2021-03-14] MEDS: METOPROLOL SUCC 25MG EXT REL TAB PO SCH (20:59)
[2021-03-14] MEDS: AMIODARONE 200 MG TAB PO SCH (21:00)
[2021-03-15] MEDS: LEVOTHYROXINE SODIUM 50 MCG TABLET PO SCH (05:46)
[2021-03-15 06:49] LABS: INR 2.8 (0.9-1.1); Prothrombin Time 26.1 Seconds (9.0-12.0)
[2021-03-15 07:29] LABS: Basophils # (auto) 0.02 K/uL (0-0.2); Basophils % (auto) 0.2 %; Hematocrit (blood only) 42.8 % (37-47); Hemoglobin 14.5 g/dL (12.0-16.0); Immature Granulocytes # (auto) 0.03 K/uL (0.00-0.02); Immature Granulocytes % (auto) 0.3 %; Lymphocytes # (auto) 0.98 K/uL (1.2-3.4); Lymphocytes % (auto) 11.2 %; Mean Corpuscular Hemoglobin 30.2 pg (25-34); Mean Corpuscular Hgb Conc 33.9 g/dL (32-36); Mean Corpuscular Volume 89.2 fL (80-100); Mean Platelet Volume 11.1 fL (7.4-10.4); Neutrophils # (auto) 7.04 K/uL (1.4-6.5); Neutrophils % (auto) 80.3 %; Platelet Count 226 K/uL (130-400); RDW Coefficient of Variation 14.5 % (11.5-14.5); RDW Standard Deviation 47.9 fL (36.4-46.3); White Blood Count 8.77 K/uL (4.8-10.8)
[2021-03-15 07:34] LABS: Albumin Globulin Ratio 0.6 (0.9-2); Albumin Level 2.4 gm/dl (3.4-5.0); BUN Creatinine Ratio 19.9 (10-20); Bilirubin,Total 0.6 mg/dl (0.2-1); C Reactive Protein 4.18 mg/dl (0-0.29); Calcium 8.7 mg/dl (8.5-10.1); Creatinine Clr Calc Pharmacy 57.9 ml/min; Est GFR (African American) 76.6 ml/min; Est GFR (Non-African American) 66.1 ml/min; Potassium 3.6 mmol/L (3.5-5.1); Total Protein 6.4 gm/dl (6.4-8.2)
[2021-03-15] MEDS: ALBUT/IPRATROP 3MG/0.5MG NEB 3 ML VIAL NEB SCH ×4 (07:52→19:49)
[2021-03-15] MEDS: CLOTRIMAZOLE 10 MG TROCHE BUCCAL SCH ×5 (08:20→22:05)
[2021-03-15] MEDS: FAMOTIDINE 20 MG TAB PO SCH (08:21)
[2021-03-15] MEDS: PANTOprazole 40 MG TAB PO SCH ×2 (08:21→20:17)
[2021-03-15] MEDS: CYANOCOBALAMIN 500 MCG TABLET (VITAMIN B-12) PO SCH (08:21)
[2021-03-15] MEDS: dexAMETHasone 6 MG in SYRINGE 0 ML IV SCH (08:22)
[2021-03-15] MEDS: FLUTICASONE PROPIONATE NA SPR 16 GM BTL PRN (08:22)
[2021-03-15] MEDS: UMECLIDINIUM/VILANTEROL 62.5/25MCG 7 PUFFS/INHALER INH SCH (08:22)
[2021-03-15] MEDS: ENOXAPARIN 80 MG/0.8 ML SYR SQ SCH (08:23)
[2021-03-15] MEDS: ALUMINUM/MAGNESIUM SUSP 50 ML, diphenhydrAMINE Syrup 125 MG, LIDOCAINE VISCOUS 2% SOLN ... PO PRN ×2 (08:35→14:13)
[2021-03-15] MEDS: BENZONATATE 100 MG CAPSULE PO SCH ×3 (08:37→20:17)
[2021-03-15 09:45] LABS: Hepatitis B Surf Ag Rflx Conf Neg (Neg)
[2021-03-15 10:17] LABS: Hepatitis C IgG 13Yrs+Old_Rflx Neg (Neg)
[2021-03-15] MEDS: cefTRIAXone SODIUM 2,000 MG in DEXTROSE 5% 50 ML IV SCH (15:24)
[2021-03-15] MEDS: WARFARIN SOD 1 MG TAB PO SCH (16:14)
[2021-03-15 18:16] LABS: SARS CoV2 RNA(COVID-19) InHosp POSITIVE (Negative)
--- NOTE | 2021-03-15 19:28 | Hospitalist Progress Note ---
Date of Service March 15, 2021 Assessment & Plan (1) Hypoxia: (2) Pneumonia due to COVID-19 virus: (3) COPD (chronic obstructive pulmonary disease): (4) Transaminitis: (5) Thrush: (6) Atrial fibrillation: (7) Tachy-silvestre syndrome: (8) Hypertension: (9) Tobacco abuse: (10) CKD (chronic kidney disease) stage 3, GFR 30-59 ml/min: Plan: Patient is a 75 yr female who has known past medical history of atrial fibrillation anticoagulated on warfarin, TBS status post PPM, chronic diastolic CHF, COPD, chronic tobacco abuse here, aortic valve stenosis, CKD stage III who presents to ED secondary to ill feeling and short of breath x1 week. Pneumonia due to COVID-19 Hypoxia H/O COPD --CXR:Moderate right lung airspace opacities which favor an infectious process. Radiographic follow-up to ensure resolution is recommended. Continue Dexamethasone No remdesivir secondary to elevated LFTs No acute COPD exacerbation Pulmonary toilet Encourage to prone CRP 9.89, pro-Bharathi 0.07 Continue supplemental oxygen as needed Lasix as needed Continue current management Transaminitis Possibly due to Covid LFTs trending down Hepatitis panel pending Monitor LFTs Thrush Continue clotrimazole troch Afib TBS s/p ppm continue amiodarone, metoprolol INR subtherapeutic: 1.8>2.8 DC Lovenox Continue Coumadin 1 mg today Monitor INR Urinary tract infection Urine culture growing E coli Continue Rocephin #3 HTN continue metoprolol hold amlodipine for now H/O diastolic CHF Aortic valve stenosis monitor volume status on lasix prn at home Resume Lasix tomorrow CKD III Creatinine at baseline Monitor renal function Tobacco abuse has not smoked in 1-1.5 week due to ill feeling Rn Perinatal to quit DVT px: Coumadin CODE STATUS Conditional code: no CPR/mech vent; Agrees with cpap/bipap use Admission and Anticipated Discharge Date Admission Date: March 13, 2021 Subjective Patient is seen and examined bedside States feeling more dyspneic earlier today but better during my encounter Also reports dry cough Denies chest pain, dizziness, nausea, abdominal pain Review of Systems Review of Systems: All systems reviewed & are unremarkable except as noted in Subjective Physical Exam Physical Exam: Physical Exam: Vitals signs as noted above General Appearance:Moderately built and nourished, no apparent distress Head: normocephalic, Atraumatic Eyes: normal inspection, EOMI Neck: supple, Trachea midline Respiratory/Chest: Decreased breath sounds, scattered wheezes Cardiovascular: S1, S2, No murmur Abdomen/GI:Soft, Non tender, Bowel sounds present Extremities/Musculoskeletal:normal inspection, no edema Neurologic/Psych:AAOX3, grossly no focal neurological deficits Skin: normal color, warm Results & Data Results & Data ([facility]) Vital Signs (Past 12 Hours) Vital Signs Temp Pulse Resp BP Pulse Ox 03/15/21 17:24 36.9 C 76 18 111/59 L 92 03/15/21 14:47 66 22 94 03/15/21 10:49 59 L 20 94 03/15/21 07:53 67 20 90 03/15/21 07:42 36.5 C 60 18 99/57 L 90 Laboratory Results Short CBC 03/15/21 Range/Units 06:24 WBC 8.77 (4.8-10.8) K/uL Hgb 14.5 (12.0-16.0) g/dL Hct 42.8 (37-47) % Plt Count 226 (130-400) K/uL BMP 03/15/21 06:24 Sodium 138 Potassium 3.6 Chloride 109 H Carbon Dioxide 23 BUN 17 Creatinine 0.87 Glucose 136 H Calcium 8.7 Liver Function 03/15/21 Range/Units 06:24 Total Bilirubin 0.6 (0.2-1) mg/dl AST 130 H (15-37) U/L ALT 100 H (12-78) Alkaline Phosphatase 141 H (45-117) U/L Albumin 2.4 L (3.4-5.0) gm/dl
[2021-03-15] MEDS: METOPROLOL SUCC 25MG EXT REL TAB PO SCH (20:17)
[2021-03-15] MEDS: AMIODARONE 200 MG TAB PO SCH (20:17)
[2021-03-16 05:03] LABS: Hepatitis A Antibody IgM NON-REACTIVE (NON-REACTIVE); Hepatitis B Core Antibody IgM NON-REACTIVE (NON-REACTIVE)
[2021-03-16] MEDS: LEVOTHYROXINE SODIUM 50 MCG TABLET PO SCH (05:53)
[2021-03-16] MEDS: CLOTRIMAZOLE 10 MG TROCHE BUCCAL SCH ×5 (06:00→22:01)
[2021-03-16 06:17] LABS: Basophils # (auto) 0.02 K/uL (0-0.2); Basophils % (auto) 0.2 %; Hematocrit (blood only) 44.3 % (37-47); Hemoglobin 14.9 g/dL (12.0-16.0); Immature Granulocytes # (auto) 0.08 K/uL (0.00-0.02); Immature Granulocytes % (auto) 0.8 %; Lymphocytes % (auto) 11.6 %; Mean Corpuscular Hemoglobin 30.2 pg (25-34); Mean Corpuscular Hgb Conc 33.6 g/dL (32-36); Mean Corpuscular Volume 89.9 fL (80-100); Mean Platelet Volume 11.6 fL (7.4-10.4); Monocytes # (auto) 0.58 K/uL (0.11-0.59); Monocytes % (auto) 6.1 %; Neutrophils # (auto) 7.71 K/uL (1.4-6.5); Neutrophils % (auto) 81.3 %; Platelet Count 240 K/uL (130-400); RDW Coefficient of Variation 14.7 % (11.5-14.5); RDW Standard Deviation 48.5 fL (36.4-46.3); Red Blood Count 4.93 M/uL (4.2-5.4); White Blood Count 9.49 K/uL (4.8-10.8)
[2021-03-16 06:33] LABS: INR 3.7 (0.9-1.1); Prothrombin Time 33.7 Seconds (9.0-12.0)
[2021-03-16 06:56] LABS: Albumin Level 2.4 gm/dl (3.4-5.0); BUN Creatinine Ratio 15.7 (10-20); Calcium 8.7 mg/dl (8.5-10.1); Creatinine Clr Calc Pharmacy 58.5 ml/min; Est GFR (African American) 77.7 ml/min; Potassium 3.4 mmol/L (3.5-5.1)
[2021-03-16 06:58] LABS: Albumin Globulin Ratio 0.6 (0.9-2); Bilirubin,Total 0.5 mg/dl (0.2-1); Globulin 3.8 gm/dl (2.5-4.0); Total Protein 6.2 gm/dl (6.4-8.2)
[2021-03-16] MEDS: ALBUT/IPRATROP 3MG/0.5MG NEB 3 ML VIAL NEB SCH ×4 (08:00→17:49)
[2021-03-16] MEDS: FAMOTIDINE 20 MG TAB PO SCH (08:49)
[2021-03-16] MEDS: FUROSEMIDE 20 MG TAB PO SCH (08:49)
[2021-03-16] MEDS: CYANOCOBALAMIN 500 MCG TABLET (VITAMIN B-12) PO SCH (08:50)
[2021-03-16] MEDS: BENZONATATE 100 MG CAPSULE PO SCH ×3 (08:50→20:09)
[2021-03-16] MEDS: ALUMINUM/MAGNESIUM SUSP 50 ML, diphenhydrAMINE Syrup 125 MG, LIDOCAINE VISCOUS 2% SOLN ... PO PRN ×2 (08:50→12:56)
[2021-03-16] MEDS: PANTOprazole 40 MG TAB PO SCH ×2 (08:50→20:08)
[2021-03-16] MEDS: UMECLIDINIUM/VILANTEROL 62.5/25MCG 7 PUFFS/INHALER INH SCH (08:51)
[2021-03-16] MEDS: dexAMETHasone 6 MG in SYRINGE 0 ML IV SCH (08:51)
[2021-03-16] MEDS ORDERED: POTASSIUM CHLORIDE CRTAB 20 MEQ TABCR PO SCH (10:36)
[2021-03-16] MEDS ORDERED: FUROSEMIDE INJ 20 MG/2 ML VIAL IV ONE (15:54)
[2021-03-16] MEDS: cefTRIAXone SODIUM 2,000 MG in DEXTROSE 5% 50 ML IV SCH (16:25)
--- NOTE | 2021-03-16 18:11 | Hospitalist Progress Note ---
Date of Service March 16, 2021 Assessment & Plan (1) Hypoxia: (2) Pneumonia due to COVID-19 virus: (3) COPD (chronic obstructive pulmonary disease): (4) Transaminitis: (5) Thrush: (6) Atrial fibrillation: (7) Tachy-silvestre syndrome: (8) Hypertension: (9) Tobacco abuse: (10) CKD (chronic kidney disease) stage 3, GFR 30-59 ml/min: Plan: Patient is a 75 yr female who has known past medical history of atrial fibrillation anticoagulated on warfarin, TBS status post PPM, chronic diastolic CHF, COPD, chronic tobacco abuse here, aortic valve stenosis, CKD stage III who presents to ED secondary to ill feeling and short of breath x1 week. Pneumonia due to COVID-19 Hypoxia H/O COPD --CXR:Moderate right lung airspace opacities which favor an infectious process. Radiographic follow-up to ensure resolution is recommended. Continue Dexamethasone No remdesivir secondary to elevated LFTs No acute COPD exacerbation Pulmonary toilet Encourage to prone CRP 9.89, pro-Bharathi 0.07 Continue supplemental oxygen as needed Lasix as needed We will give 1 dose of Lasix today Currently on 8 L supplemental oxygen Repeat chest x-ray tomorrow Check CRP tomorrow Transaminitis Possibly due to Covid Hepatitis panel negative Monitor LFTs LFTs trending down Thrush Continue clotrimazole troch Afib TBS s/p ppm continue amiodarone, metoprolol INR subtherapeutic: 1.8>2.8>3.7 DC Lovenox Hold Coumadin today Monitor INR Urinary tract infection Urine culture growing E coli Continue Rocephin #4 HTN continue metoprolol hold amlodipine for now H/O diastolic CHF Aortic valve stenosis monitor volume status on lasix prn at home Continue Lasix CKD III Creatinine at baseline Monitor renal function Tobacco abuse has not smoked in 1-1.5 week due to 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 DVT px: Coumadin-On Hold CODE STATUS Conditional code: no CPR/mech vent; Agrees with cpap/bipap use Admission and Anticipated Discharge Date Admission Date: March 13, 2021 Subjective Patient is seen and examined bedside Shortness of breath slightly worse today Poor appetite Minimal cough No other complaints Currently requiring 8 L of supplemental oxygen to maintain saturation Denies chest pain, dizziness, nausea, abdominal pain Review of Systems Review of Systems: All systems reviewed & are unremarkable except as noted in Subjective Physical Exam Physical Exam: Physical Exam: Vitals signs as noted above General Appearance:Moderately built and nourished, no apparent distress Head: normocephalic, Atraumatic Eyes: normal inspection, EOMI Neck: supple, Trachea midline Respiratory/Chest: Decreased breath sounds, scattered wheezes, crackles Cardiovascular: S1, S2, No murmur Abdomen/GI:Soft, Non tender, Bowel sounds present Extremities/Musculoskeletal:normal inspection, no edema Neurologic/Psych:AAOX3, grossly no focal neurological deficits Skin: normal color, warm Results & Data Results & Data ([facility]) Vital Signs (Past 12 Hours) Vital Signs Temp Pulse Resp BP Pulse Ox 03/16/21 17:49 68 23 98 03/16/21 15:17 37.2 C 70 18 106/63 93 03/16/21 13:43 64 20 93 03/16/21 12:00 36.7 C 78 20 105/63 90 03/16/21 10:39 63 22 93 03/16/21 08:02 36.9 C 62 22 139/77 91 03/16/21 08:00 68 24 90 Laboratory Results Short CBC 03/16/21 Range/Units 05:43 WBC 9.49 (4.8-10.8) K/uL Hgb 14.9 (12.0-16.0) g/dL Hct 44.3 (37-47) % Plt Count 240 (130-400) K/uL BMP 03/16/21 05:43 Sodium 139 Potassium 3.4 L Chloride 107 Carbon Dioxide 25 BUN 14 Creatinine 0.86 Glucose 102 H Calcium 8.7 Liver Function 03/16/21 Range/Units 05:43 Total Bilirubin 0.5 (0.2-1) mg/dl AST 83 H (15-37) U/L ALT 84 H (12-78) Alkaline Phosphatase 137 H (45-117) U/L Albumin 2.4 L (3.4-5.0) gm/dl
[2021-03-16] MEDS: METOPROLOL SUCC 25MG EXT REL TAB PO SCH (20:08)
[2021-03-16] MEDS: AMIODARONE 200 MG TAB PO SCH (20:09)
[2021-03-17] MEDS: LEVOTHYROXINE SODIUM 50 MCG TABLET PO SCH (06:10)
[2021-03-17] MEDS: CLOTRIMAZOLE 10 MG TROCHE BUCCAL SCH ×4 (06:10→21:32)
[2021-03-17 06:58] LABS: Hematocrit (blood only) 44.3 % (37-47); Hemoglobin 14.9 g/dL (12.0-16.0); Mean Corpuscular Hemoglobin 30.5 pg (25-34); Mean Corpuscular Hgb Conc 33.6 g/dL (32-36); Mean Corpuscular Volume 90.8 fL (80-100); Mean Platelet Volume 11.8 fL (7.4-10.4); Platelet Count 268 K/uL (130-400); RDW Standard Deviation 50.6 fL (36.4-46.3); Red Blood Count 4.88 M/uL (4.2-5.4)
[2021-03-17 07:06] LABS: INR 3.4 (0.9-1.1); Prothrombin Time 31.4 Seconds (9.0-12.0)
[2021-03-17] MEDS: ALBUT/IPRATROP 3MG/0.5MG NEB 3 ML VIAL NEB SCH ×4 (07:38→19:15)
[2021-03-17 07:40] LABS: Albumin Level 2.3 gm/dl (3.4-5.0); Calcium 8.6 mg/dl (8.5-10.1); Creatinine Clr Calc Pharmacy 56.9 ml/min; Est GFR (African American) 76.6 ml/min; Est GFR (Non-African American) 66.1 ml/min; Potassium 3.7 mmol/L (3.5-5.1)
[2021-03-17 07:43] LABS: Albumin Globulin Ratio 0.5 (0.9-2); Bilirubin,Total 0.7 mg/dl (0.2-1); C Reactive Protein 12.7 mg/dl (0-0.29); Globulin 4.2 gm/dl (2.5-4.0); Total Protein 6.5 gm/dl (6.4-8.2)
[2021-03-17] MEDS: dexAMETHasone 6 MG in SYRINGE 0 ML IV SCH (08:36)
[2021-03-17] MEDS: CYANOCOBALAMIN 500 MCG TABLET (VITAMIN B-12) PO SCH (08:37)
[2021-03-17] MEDS: FUROSEMIDE 20 MG TAB PO SCH (08:37)
[2021-03-17] MEDS: BENZONATATE 100 MG CAPSULE PO SCH ×3 (08:37→21:32)
[2021-03-17] MEDS: UMECLIDINIUM/VILANTEROL 62.5/25MCG 7 PUFFS/INHALER INH SCH (08:37)
[2021-03-17] MEDS: FAMOTIDINE 20 MG TAB PO SCH (08:38)
[2021-03-17] MEDS: PANTOprazole 40 MG TAB PO SCH ×2 (08:38→21:33)
--- NOTE | 2021-03-17 08:56 | XRay Report ---
XR chest 1V portable CLINICAL HISTORY: covid. Follow-up bilateral airspace opacities COMPARISON STUDY: 03/13/2021 TECHNIQUE: 1 view of the chest FINDINGS: Single frontal view of the chest demonstrates the cardiomediastinal silhouette to be within normal li mits. Permanent cardiac pacer is in place. Compared to the previous examination, there are again patc hy interstitial and alveolar opacities present bilaterally. The findings are most characteristic of a viral type pneumonitis and Covid 19 pneumonia. There is no evidence for pleural effusion. There is n o evidence for vascular congestion. There is no acute osseous pathology. IMPRESSION: Patchy interstitial and alveolar opacities are again seen bilaterally characteristic of a viral type pneumonitis and Covid 19 pneumonia. ACT 112: Negative or not required by law. Electronically signed by: Aung Gonzalez M.D. 03/17/2021 8:55 AM
[2021-03-17] MEDS: cefTRIAXone SODIUM 2,000 MG in DEXTROSE 5% 50 ML IV SCH (15:52)
--- NOTE | 2021-03-17 19:04 | Hospitalist Progress Note ---
Date of Service March 17, 2021 Assessment & Plan (1) Hypoxia: (2) Pneumonia due to COVID-19 virus: (3) COPD (chronic obstructive pulmonary disease): (4) Transaminitis: (5) Thrush: (6) Atrial fibrillation: (7) Tachy-silvestre syndrome: (8) Hypertension: (9) Tobacco abuse: (10) CKD (chronic kidney disease) stage 3, GFR 30-59 ml/min: Plan: Patient is a 75 yr female who has known past medical history of atrial fibrillation anticoagulated on warfarin, TBS status post PPM, chronic diastolic CHF, COPD, chronic tobacco abuse here, aortic valve stenosis, CKD stage III who presents to ED secondary to ill feeling and 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 Pneumonia due to COVID-19 #. Hypoxia #. H/O COPD --CXR:Moderate right lung airspace opacities which favor an infectious process. Radiographic follow-up to ensure resolution is recommended. Not vaccinated, signs and symptoms started a day after Thanksgiving. Continue Dexamethasone No remdesivir secondary to elevated LFTs No acute COPD exacerbation Pulmonary toilet Encourage to prone CRP 9.89, pro-Bharathi 0.07 Continue supplemental oxygen as needed Lasix as needed Currently on 10 L supplemental oxygen #. Transaminitis Possibly due to Covid Hepatitis panel negative Monitor LFTs LFTs trending down #. Thrush Continue clotrimazole troch #. Afib TBS s/p ppm continue amiodarone, metoprolol INR subtherapeutic: 1.8>2.8>3.7 DC Lovenox Hold Coumadin today Monitor INR #. Urinary tract infection Urine culture growing E coli Status post Rocephin #. 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 On 10 L nasal cannula oxygen, NAD, no new acute events overnight. Patient reports eating and bowel movements improving. Patient denies fever/headache/chills/increased shortness of breath/other review of symptoms. Physical Exam Physical Exam: GENERAL: Alert and oriented x3. NAD, on 10L HEENT: No pallor, no icterus. Pupils equal, round and reactive to light. Oral mucosa moist. NECK: No JVD, no neck masses. HEART: S1 and S2 heard. Regular rate and rhythm. No murmur, no gallop. RESPIRATORY SYSTEM: Normal AP diameter. No accessory muscle use. No wheezing, bilateral crackles and decreased breath sounds. ABDOMEN: Soft, bowel sounds present, nontender, no distention. CENTRAL NERVOUS SYSTEM: No facial droop. Speech is clear. Obeys simple commands. Moves extremities. EXTREMITIES: No edema, no erythema seen. Results & Data Results & Data ([facility]) Vital Signs (Past 12 Hours) Vital Signs Temp Pulse Resp BP Pulse Ox 03/17/21 15:53 36.5 C 64 20 112/68 90 03/17/21 15:20 62 22 89 L 03/17/21 10:51 64 20 92 03/17/21 08:00 36.8 C 71 18 113/70 92 03/17/21 07:38 63 20 90
[2021-03-17] MEDS: METOPROLOL SUCC 25MG EXT REL TAB PO SCH (21:33)
[2021-03-17] MEDS: AMIODARONE 200 MG TAB PO SCH (21:33)
[2021-03-18] MEDS: CLOTRIMAZOLE 10 MG TROCHE BUCCAL SCH ×7 (00:11→22:39)
[2021-03-18] MEDS: LEVOTHYROXINE SODIUM 50 MCG TABLET PO SCH (06:25)
[2021-03-18 06:29] LABS: Hematocrit (blood only) 41.3 % (37-47); Hemoglobin 13.8 g/dL (12.0-16.0); Mean Corpuscular Hemoglobin 30.4 pg (25-34); Mean Corpuscular Hgb Conc 33.4 g/dL (32-36); Mean Platelet Volume 11.5 fL (7.4-10.4); Platelet Count 217 K/uL (130-400); RDW Coefficient of Variation 14.9 % (11.5-14.5); RDW Standard Deviation 50.5 fL (36.4-46.3); Red Blood Count 4.54 M/uL (4.2-5.4); White Blood Count 10.49 K/uL (4.8-10.8)
[2021-03-18 06:37] LABS: INR 2.9 (0.9-1.1); Prothrombin Time 27.3 Seconds (9.0-12.0)
[2021-03-18 07:21] LABS: Albumin Level 2.1 gm/dl (3.4-5.0); Calcium 8.6 mg/dl (8.5-10.1); Creatinine Clr Calc Pharmacy 81.1 ml/min; Est GFR (African American) 104.2 ml/min; Est GFR (Non-African American) 89.9 ml/min; Potassium 3.3 mmol/L (3.5-5.1)
[2021-03-18 07:24] LABS: Albumin Globulin Ratio 0.5 (0.9-2); Bilirubin,Total 0.6 mg/dl (0.2-1); Globulin 3.9 gm/dl (2.5-4.0)
[2021-03-18] MEDS: dexAMETHasone 6 MG in SYRINGE 0 ML IV SCH (07:52)
[2021-03-18] MEDS: UMECLIDINIUM/VILANTEROL 62.5/25MCG 7 PUFFS/INHALER INH SCH (07:53)
[2021-03-18] MEDS: FAMOTIDINE 20 MG TAB PO SCH (07:53)
[2021-03-18] MEDS: BENZONATATE 100 MG CAPSULE PO SCH ×3 (07:53→21:10)
[2021-03-18] MEDS: CYANOCOBALAMIN 500 MCG TABLET (VITAMIN B-12) PO SCH (07:53)
[2021-03-18] MEDS: FUROSEMIDE 20 MG TAB PO SCH (07:53)
[2021-03-18] MEDS: PANTOprazole 40 MG TAB PO SCH ×2 (07:54→21:10)
[2021-03-18] MEDS: ALBUT/IPRATROP 3MG/0.5MG NEB 3 ML VIAL NEB SCH ×4 (08:01→19:10)
[2021-03-18] MEDS ORDERED: POTASSIUM CHLORIDE CRTAB 20 MEQ TABCR PO STA (09:49)
[2021-03-18] MEDS: WARFARIN SOD 1 MG TAB PO SCH (16:45)
--- NOTE | 2021-03-18 17:25 | Hospitalist Progress Note ---
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 Pneumonia due to COVID-19 #. Hypoxia #. H/O COPD --CXR:Moderate right lung airspace opacities which favor an infectious process. Radiographic follow-up to ensure resolution is recommended. Not vaccinated, signs and symptoms started a day after Thanksgiving. Continue Dexamethasone No remdesivir secondary to elevated LFTs No acute COPD exacerbation Pulmonary toilet Encourage to prone CRP 9.89, pro-Bharathi 0.07 Continue supplemental oxygen as needed Lasix as needed Currently on 10 L supplemental oxygen, Pt reporting feeling better. #. Transaminitis Possibly due to Covid Hepatitis panel negative Monitor LFTs LFTs trending down #. Thrush Continue clotrimazole troch #. Afib TBS s/p ppm continue amiodarone, metoprolol INR subtherapeutic: 1.8>2.8>3.7>2.9 DC Lovenox resume Coumadin 03/18 Monitor INR #. Urinary tract infection Urine culture growing E coli Status post Rocephin #. 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 On 10 L nasal cannula oxygen, NAD, no new acute events overnight. Patient reports cough getting better. Patient reports eating and moving bowels okay. Patient does say that she feels better. Patient denies fever/headache/chills/increased shortness of breath/other review of symptoms. Per RN, patient has more wheezes today. Physical Exam Physical Exam: GENERAL: Alert and oriented x3. NAD, on 10L HEENT: No pallor, no icterus. Pupils equal, round and reactive to light. Oral mucosa moist. NECK: No JVD, no neck masses. HEART: S1 and S2 heard. Regular rate and rhythm. No murmur, no gallop. RESPIRATORY SYSTEM: Normal AP diameter. No accessory muscle use. No wheezing, bilateral crackles diffuse and bilateral. ABDOMEN: Soft, bowel sounds present, nontender, no distention. CENTRAL NERVOUS SYSTEM: No facial droop. Speech is clear. Obeys simple commands. Moves extremities. EXTREMITIES: No edema, no erythema seen. Results & Data Results & Data ([facility]) Vital Signs (Past 12 Hours) Vital Signs Temp Pulse Resp BP Pulse Ox 03/18/21 16:05 66 20 94 03/18/21 15:05 36.5 C 65 16 111/68 90 03/18/21 11:34 63 20 94 03/18/21 08:17 36.6 C 67 20 108/57 L 95 03/18/21 08:01 65 20 94
[2021-03-18] MEDS: AMIODARONE 200 MG TAB PO SCH (21:11)
[2021-03-18] MEDS: METOPROLOL SUCC 25MG EXT REL TAB PO SCH (21:11)
[2021-03-19] MEDS: ALBUT/IPRATROP 3MG/0.5MG NEB 3 ML VIAL NEB SCH ×4 (05:51→19:16)
[2021-03-19] MEDS: LEVOTHYROXINE SODIUM 50 MCG TABLET PO SCH (06:11)
[2021-03-19 07:26] LABS: INR 2.9 (0.9-1.1); Prothrombin Time 27.4 Seconds (9.0-12.0)
[2021-03-19 07:42] LABS: BUN Creatinine Ratio 24.4 (10-20); Calcium 8.6 mg/dl (8.5-10.1); Creatinine Clr Calc Pharmacy 77.3 ml/min; Est GFR (African American) 102.6 ml/min; Est GFR (Non-African American) 88.5 ml/min; Potassium 3.3 mmol/L (3.5-5.1)
[2021-03-19] MEDS: CYANOCOBALAMIN 500 MCG TABLET (VITAMIN B-12) PO SCH (08:24)
[2021-03-19] MEDS: BENZONATATE 100 MG CAPSULE PO SCH ×3 (08:24→20:43)
[2021-03-19] MEDS: FUROSEMIDE 20 MG TAB PO SCH (08:25)
[2021-03-19] MEDS: PANTOprazole 40 MG TAB PO SCH ×2 (08:25→20:43)
[2021-03-19] MEDS: UMECLIDINIUM/VILANTEROL 62.5/25MCG 7 PUFFS/INHALER INH SCH (08:25)
[2021-03-19] MEDS: FAMOTIDINE 20 MG TAB PO SCH (08:25)
[2021-03-19] MEDS: CLOTRIMAZOLE 10 MG TROCHE BUCCAL SCH ×5 (08:25→22:24)
[2021-03-19] MEDS: dexAMETHasone 6 MG in SYRINGE 0 ML IV SCH (09:25)
[2021-03-19] MEDS ORDERED: POTASSIUM CHLORIDE CRTAB 20 MEQ TABCR PO STA ×2 (09:37→13:27)
[2021-03-19] MEDS ORDERED: FUROSEMIDE 40 MG/4 ML VIAL IV ONE (14:31)
[2021-03-19] MEDS: WARFARIN SOD 1 MG TAB PO SCH (15:21)
--- NOTE | 2021-03-19 18:10 | Hospitalist Progress Note ---
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 Pneumonia due to COVID-19 #. Hypoxia #. H/O COPD --CXR:Moderate right lung airspace opacities which favor an infectious process. Radiographic follow-up to ensure resolution is recommended. Not vaccinated, signs and symptoms started a day after Thanksgiving. 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 Transaminitis Possibly due to Covid Hepatitis panel negative Monitor LFTs LFTs trending down #. Thrush Continue clotrimazole troch #. Afib TBS s/p ppm continue amiodarone, metoprolol INR subtherapeutic: 1.8>2.8>3.7>2.9 DC Lovenox resume Coumadin 03/18 Monitor INR-remains therapeutic #. Urinary tract infection Urine culture growing E coli Status post Rocephin #. 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 DVT px: Coumadin-On Hold CODE STATUS Conditional code: no CPR/mech vent; Agrees with cpap/bipap use Admission and Anticipated Discharge Date Admission Date: March 13, 2021 Subjective 03/19/2021 The patient was seen and examined in the Covid unit She has been feeling better but he still requires about 15 L of oxygen to maintain saturation Review of Systems Review of Systems: All systems reviewed and are unremarkable except as noted below Physical Exam Physical Exam: Lying in bed with minimal respiratory distress Constitutional: well developed, well nourished, + ill appearing and + obese Eyes: PERRL, conjunctivae normal, anicteric sclerae ENMT: external ear and nose normal, oropharynx normal Neck: trachea midline, no thyromegaly Respiratory: + respiratory distress Auscultation: + diminished lung sounds and + crackles (Minimal at the bases) Cardiovascular: Rate/Rhythm: regular rate and regular rhythm; not tachycardic Heart Sounds: normal S1 and normal S2; no murmur Extremities: + edema (Trace edema bilaterally) Gastrointestinal (Abdomen): Inspection/Auscultation: normal bowel sounds; abdomen not distended Percussion/Palpation: abdomen soft; abdomen nontender Musculoskeletal: No acute arthritis in any joint Neurologic: Alert, awake and oriented x3. Generally weak Lymphatic: no cervical or axillary lymphadenopathy Results & Data Results & Data ([facility]) Vital Signs (Past 12 Hours) Vital Signs Temp Pulse Resp BP Pulse Ox 03/19/21 14:58 36.4 C L 73 18 106/69 92 03/19/21 10:41 60 22 93 03/19/21 08:02 36.5 C 66 18 108/68 92 Laboratory Results [facility] 03/19/21 06:44 Sodium 137 Potassium 3.3 L Chloride 104 Carbon Dioxide 28 BUN 16 Creatinine 0.64 Glucose 103 H Calcium 8.6 Medications Administered Current Inpatient Medications Acetaminophen (Acetaminophen 325 Mg Tab) 650 mg PO Q4H PRN PRN Reason: Pain or Fever Stop: 04/12/21 17:50 Al Hydrox/Mg Hydrox/Simethicone (Aluminum/Magnesium Susp 30 Ml Udc) 15 ml PO Q4H PRN PRN Reason: Dyspepsia Stop: 04/12/21 17:50 Albuterol (Albut/Ipratrop 3mg/0.5mg Neb 3 Ml Vial) 3 ml NEB QIDR [place] Stop: 04/12/21 18:59 Last Admin: 03/19/21 14:58 Dose: 3 ml Documented by: Amiodarone HCl (Amiodarone 200 Mg Tab) 200 mg PO HS [facility] Stop: 04/12/21 20:59 Last Admin: 03/18/21 21:11 Dose: 200 mg Documented by: Benzonatate (Benzonatate 100 Mg Capsule) 100 mg PO TID [facility] Stop: 04/12/21 20:59 Last Admin: 03/19/21 15:20 Dose: 100 mg Documented by: Clotrimazole (Clotrimazole 10 Mg Pérez) 10 mg BUCCAL [id number] [facility] Stop: 03/23/21 18:59 Last Admin: 03/19/21 15:21 Dose: 10 mg Documented by: Al Hydrox/Mg Hydrox/Simethicone 50 ml/Diphenhydramine HCl 125 mg/Lidocaine HCl 40 ml/Sucralfate 10,000 mg/ BARCODE IDENTIFIER 1 ea 0 ml PO Q4H PRN PRN Reason: sore mouth Stop: 04/12/21 17:50 Last Admin: 03/16/21 12:56 Dose: 5 ml Documented by: Cyanocobalamin (Cyanocobalamin 500 Mcg Tablet (Vitamin B-12)) 500 mcg PO QAM [facility] Stop: 04/13/21 08:59 Last Admin: 03/19/21 08:24 Dose: 500 mcg Documented by: Famotidine (Famotidine 20 Mg Tab) 20 mg PO QAM [facility] Stop: 04/13/21 08:59 Last Admin: 03/19/21 08:25 Dose: 20 mg Documented by: Fluticasone Propionate (Fluticasone Propionate Na Spr 16 Gm Btl) 2 sprays NA DAILY PRN PRN Reason: Nasal Congestion Stop: 04/12/21 17:50 Last Admin: 03/15/21 08:22 Dose: 2 sprays Documented by: Furosemide (Furosemide 20 Mg Tab) 20 mg PO QAM [facility] Stop: 04/15/21 08:59 Last Admin: 03/19/21 08:25 Dose: 20 mg Documented by: Guaifenesin/Dextromethorphan (Guaifenesin/Dextrom Syrup 200mg/20mg 10ml Udc) 10 ml PO Q6H PRN PRN Reason: Cough Stop: 04/12/21 17:50 Dexamethasone 6 mg/ Syringe 1.5 mls @ 1 mls/min IV DAILY [facility] Stop: 03/22/21 09:02 Last Admin: 03/19/21 09:25 Dose: 1 mls/min Documented by: Levothyroxine Sodium (Levothyroxine Sodium 50 Mcg Tablet) 50 mcg PO DAILYBB [facility] Stop: 04/13/21 06:29 Last Admin: 03/19/21 06:11 Dose: 50 mcg Documented by: Magnesium Hydroxide (Magnesium Hydroxide Susp 30 Ml Udc) 30 ml PO Q12H PRN PRN Reason: Constipation Stop: 04/12/21 17:50 Metoprolol Succinate (Metoprolol Succ 25mg Ext Rel Tab) 25 mg PO [facility] Stop: 04/12/21 20:59 Last Admin: 03/18/21 21:11 Dose: 25 mg Documented by: Ondansetron HCl (Ondansetron Inj 2 Mg/Ml 2 Ml Vial) 4 mg IV Q6H PRN PRN Reason: Nausea Stop: 04/12/21 17:50 Pantoprazole Sodium (Pantoprazole 40 Mg Tab) 40 mg PO BID [facility]; Protocol Stop: 04/12/21 20:59 Last Admin: 03/19/21 08:25 Dose: 40 mg Documented by: Polyethylene Glycol (Polyethylene (Miralax) 17 Gm Pack) 17 gm PO DAILY PRN PRN Reason: Constipation Stop: 04/12/21 17:50 Umeclidinium/Vilanterol (Umeclidinium/Vilanterol 62.5/25mcg 7 Puffs/Inhaler) 1 puffs INH QAM [facility] Stop: 04/13/21 08:59 Last Admin: 03/19/21 08:25 Dose: 1 puffs Documented by: Warfarin Sodium (Warfarin Sod 1 Mg Tab) 1 mg PO DAILY@1600 [facility] Stop: 04/14/21 15:59 Last Admin: 03/19/21 15:21 Dose: 1 mg Documented by:
[2021-03-19] MEDS: METOPROLOL SUCC 25MG EXT REL TAB PO SCH (20:43)
[2021-03-19] MEDS: AMIODARONE 200 MG TAB PO SCH (20:43)
[2021-03-20] MEDS: CLOTRIMAZOLE 10 MG TROCHE BUCCAL SCH ×5 (06:07→23:11)
[2021-03-20] MEDS: LEVOTHYROXINE SODIUM 50 MCG TABLET PO SCH (06:07)
[2021-03-20] MEDS: ALBUT/IPRATROP 3MG/0.5MG NEB 3 ML VIAL NEB SCH ×4 (06:16→20:39)
[2021-03-20 08:01] LABS: Calcium 8.3 mg/dl (8.5-10.1); Creatinine Clr Calc Pharmacy 75.6 ml/min; Est GFR (African American) 102.1 ml/min; Est GFR (Non-African American) 88.1 ml/min; Magnesium 1.8 mg/dl (1.8-2.4); Phosphorus 3.3 mg/dl (2.5-4.9); Potassium 4.1 mmol/L (3.5-5.1)
[2021-03-20] MEDS: UMECLIDINIUM/VILANTEROL 62.5/25MCG 7 PUFFS/INHALER INH SCH (08:50)
[2021-03-20] MEDS: BENZONATATE 100 MG CAPSULE PO SCH ×3 (08:51→20:22)
[2021-03-20] MEDS: FLUTICASONE PROPIONATE NA SPR 16 GM BTL PRN (08:51)
[2021-03-20] MEDS: FUROSEMIDE 20 MG TAB PO SCH (08:52)
[2021-03-20] MEDS: PANTOprazole 40 MG TAB PO SCH ×2 (08:52→20:22)
[2021-03-20] MEDS: dexAMETHasone 6 MG in SYRINGE 0 ML IV SCH (08:52)
[2021-03-20] MEDS: FAMOTIDINE 20 MG TAB PO SCH (08:52)
[2021-03-20] MEDS: CYANOCOBALAMIN 500 MCG TABLET (VITAMIN B-12) PO SCH (08:53)
[2021-03-20] MEDS: SODIUM CHLORIDE 0.65% NA SOLN 45 ML (OCEAN) PRN (11:54)
[2021-03-20] MEDS ORDERED: FUROSEMIDE 40 MG/4 ML VIAL IV ONE (14:15)
--- NOTE | 2021-03-20 15:56 | Hospitalist Progress Note ---
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 Pneumonia due to COVID-19 #. Hypoxia #. H/O COPD --CXR:Moderate right lung airspace opacities which favor an infectious process. Radiographic follow-up to ensure resolution is recommended. Not vaccinated, signs and symptoms started a day after Thanksgiving. Continue Dexamethasone No remdesivir secondary to elevated LFTs No acute COPD exacerbation Pulmonary toilet ,Encourage to prone , using spirometer and flutter valve CRP 9.89, pro-Bharathi 0.07 Clinically not any better and has been requiring 15 L to maintain saturation Clinically better with less cough and less shortness of breath We will give another dose of Lasix today #. Transaminitis Possibly due to Covid Hepatitis panel negative Monitor LFTs LFTs trending down-we will check tomorrow 03/21/2021 #. Thrush Continue clotrimazole troch #. Afib TBS s/p ppm continue amiodarone, metoprolol INR subtherapeutic: 1.8>2.8>3.7>2.9 DC Lovenox resume Coumadin 03/18 Monitor INR-remains therapeutic #. Urinary tract infection Urine culture growing E coli Status post Rocephin #. 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 DVT px: Coumadin-On Hold CODE STATUS Conditional code: no CPR/mech vent; Agrees with cpap/bipap use Admission and Anticipated Discharge Date Admission Date: March 13, 2021 Subjective 03/19/2021 The patient was seen and examined in the Covid unit She has been feeling better but he still requires about 15 L of oxygen to maintain saturation 03/20/2021 Patient was seen and examined in the Covid unit She has been feeling much better today but is still requiring about 15 L to maintain saturation Has cough Review of Systems Review of Systems: All systems reviewed and are unremarkable except as noted below Physical Exam Physical Exam: Lying in bed with minimal respiratory distress Constitutional: well developed, well nourished, + ill appearing and + obese Eyes: PERRL, conjunctivae normal, anicteric sclerae ENMT: external ear and nose normal, oropharynx normal Neck: trachea midline, no thyromegaly Respiratory: + respiratory distress Auscultation: + diminished lung sounds and + crackles (Minimal at the bases) Cardiovascular: Rate/Rhythm: regular rate and regular rhythm; not tachycardic Heart Sounds: normal S1 and normal S2; no murmur Extremities: + edema (Trace edema bilaterally) Gastrointestinal (Abdomen): Inspection/Auscultation: normal bowel sounds; abdomen not distended Percussion/Palpation: abdomen soft; abdomen nontender Musculoskeletal: No acute arthritis in any joint. Neurologic: Alert, awake and oriented x3. No focal sensory no motor deficit appreciated Lymphatic: no cervical or axillary lymphadenopathy Results & Data Results & Data ([facility]) Vital Signs (Past 12 Hours) Vital Signs Temp Pulse Resp BP Pulse Ox 03/20/21 15:25 60 20 94 03/20/21 11:36 36.5 C 76 20 118/73 99 03/20/21 10:23 60 18 97 03/20/21 08:12 36.5 C 60 20 111/72 90 03/20/21 06:17 67 90 Laboratory Results BMP 03/20/21 06:04 Sodium 139 Potassium 4.1 D Chloride 103 Carbon Dioxide 29 BUN 20 H Creatinine 0.65 Glucose 103 H Calcium 8.3 L Medications Administered Current Inpatient Medications Acetaminophen (Acetaminophen 325 Mg Tab) 650 mg PO Q4H PRN PRN Reason: Pain or Fever Stop: 04/12/21 17:50 Al Hydrox/Mg Hydrox/Simethicone (Aluminum/Magnesium Susp 30 Ml Udc) 15 ml PO Q4H PRN PRN Reason: Dyspepsia Stop: 04/12/21 17:50 Albuterol (Albut/Ipratrop 3mg/0.5mg Neb 3 Ml Vial) 3 ml NEB QIDR [facility] Stop: 04/12/21 18:59 Last Admin: 03/20/21 15:25 Dose: 3 ml Documented by: Amiodarone HCl (Amiodarone 200 Mg Tab) 200 mg PO HS [facility] Stop: 04/12/21 20:59 Last Admin: 03/19/21 20:43 Dose: 200 mg Documented by: Benzonatate (Benzonatate 100 Mg Capsule) 100 mg PO TID [facility] Stop: 04/12/21 20:59 Last Admin: 03/20/21 14:05 Dose: 100 mg Documented by: Clotrimazole (Clotrimazole 10 Mg Pérez) 10 mg BUCCAL [id number] [facility] Stop: 03/23/21 18:59 Last Admin: 03/20/21 14:05 Dose: 10 mg Documented by: Al Hydrox/Mg Hydrox/Simethicone 50 ml/Diphenhydramine HCl 125 mg/Lidocaine HCl 40 ml/Sucralfate 10,000 mg/ [employer]CODE IDENTIFIER 1 ea 0 ml PO Q4H PRN PRN Reason: sore mouth Stop: 04/12/21 17:50 Last Admin: 03/16/21 12:56 Dose: 5 ml Documented by: Cyanocobalamin (Cyanocobalamin 500 Mcg Tablet (Vitamin B-12)) 500 mcg PO [facility] Stop: 04/13/21 08:59 Last Admin: 03/20/21 08:53 Dose: 500 mcg Documented by: Famotidine (Famotidine 20 Mg Tab) 20 mg PO [facility] Stop: 04/13/21 08:59 Last Admin: 03/20/21 08:52 Dose: 20 mg Documented by: Fluticasone Propionate (Fluticasone Propionate Na Spr 16 Gm Btl) 2 sprays NA DAILY PRN PRN Reason: Nasal Congestion Stop: 04/12/21 17:50 Last Admin: 03/20/21 08:51 Dose: 2 sprays Documented by: Furosemide (Furosemide 20 Mg Tab) 20 mg PO [facility] Stop: 04/15/21 08:59 Last Admin: 03/20/21 08:52 Dose: 20 mg Documented by: Guaifenesin/Dextromethorphan (Guaifenesin/Dextrom Syrup 200mg/20mg 10ml Udc) 10 ml PO Q6H PRN PRN Reason: Cough Stop: 04/12/21 17:50 Dexamethasone 6 mg/ Syringe 1.5 mls @ 1 mls/min IV DAILY [facility] Stop: 03/22/21 09:02 Last Admin: 03/20/21 08:52 Dose: 1 mls/min Documented by: Levothyroxine Sodium (Levothyroxine Sodium 50 Mcg Tablet) 50 mcg PO DAILYBB [facility] Stop: 04/13/21 06:29 Last Admin: 03/20/21 06:07 Dose: 50 mcg Documented by: Magnesium Hydroxide (Magnesium Hydroxide Susp 30 Ml Udc) 30 ml PO Q12H PRN PRN Reason: Constipation Stop: 04/12/21 17:50 Metoprolol Succinate (Metoprolol Succ 25mg Ext Rel Tab) 25 mg PO [facility] Stop: 04/12/21 20:59 Last Admin: 03/19/21 20:43 Dose: 25 mg Documented by: Ondansetron HCl (Ondansetron Inj 2 Mg/Ml 2 Ml Vial) 4 mg IV Q6H PRN PRN Reason: Nausea Stop: 04/12/21 17:50 Pantoprazole Sodium (Pantoprazole 40 Mg Tab) 40 mg PO BID [facility]; Protocol Stop: 04/12/21 20:59 Last Admin: 03/20/21 08:52 Dose: 40 mg Documented by: Polyethylene Glycol (Polyethylene (Miralax) 17 Gm Pack) 17 gm PO DAILY PRN PRN Reason: Constipation Stop: 04/12/21 17:50 Sodium Chloride (Sodium Chloride 0.65% Na Soln 45 Ml ([place])) 0 sprays NA NOW PRN PRN Reason: Nasal Congestion Stop: 04/19/21 11:12 Last Admin: 03/20/21 11:54 Dose: 2 sprays Documented by: Umeclidinium/Vilanterol (Umeclidinium/Vilanterol 62.5/25mcg 7 Puffs/Inhaler) 1 puffs INH QAM [facility] Stop: 04/13/21 08:59 Last Admin: 03/20/21 08:50 Dose: 1 puffs Documented by: Warfarin Sodium (Warfarin Sod 1 Mg Tab) 1 mg PO DAILY@1600 [facility] Stop: 04/14/21 15:59 Last Admin: 03/19/21 15:21 Dose: 1 mg Documented by:
[2021-03-20] MEDS: WARFARIN SOD 1 MG TAB PO SCH (16:25)
[2021-03-20] MEDS: METOPROLOL SUCC 25MG EXT REL TAB PO SCH (20:22)
[2021-03-20] MEDS: AMIODARONE 200 MG TAB PO SCH (20:22)
[2021-03-21] MEDS: LEVOTHYROXINE SODIUM 50 MCG TABLET PO SCH (05:43)
[2021-03-21] MEDS: CLOTRIMAZOLE 10 MG TROCHE BUCCAL SCH ×4 (05:46→18:23)
[2021-03-21 08:17] LABS: Albumin Globulin Ratio 0.5 (0.9-2); Albumin Level 2.1 gm/dl (3.4-5.0); BUN Creatinine Ratio 29.6 (10-20); Bilirubin,Total 0.6 mg/dl (0.2-1); Calcium 8.5 mg/dl (8.5-10.1); Est GFR (African American) 90.2 ml/min; Est GFR (Non-African American) 77.8 ml/min; Potassium 3.5 mmol/L (3.5-5.1); Total Protein 6.1 gm/dl (6.4-8.2)
[2021-03-21] MEDS: UMECLIDINIUM/VILANTEROL 62.5/25MCG 7 PUFFS/INHALER INH SCH (08:36)
[2021-03-21] MEDS: CYANOCOBALAMIN 500 MCG TABLET (VITAMIN B-12) PO SCH (08:37)
[2021-03-21] MEDS: FUROSEMIDE 20 MG TAB PO SCH (08:37)
[2021-03-21] MEDS: PANTOprazole 40 MG TAB PO SCH ×2 (08:37→20:28)
[2021-03-21] MEDS: BENZONATATE 100 MG CAPSULE PO SCH ×3 (08:37→20:28)
[2021-03-21] MEDS: FAMOTIDINE 20 MG TAB PO SCH (08:37)
[2021-03-21] MEDS: dexAMETHasone 6 MG in SYRINGE 0 ML IV SCH (08:38)
[2021-03-21] MEDS: ALBUT/IPRATROP 3MG/0.5MG NEB 3 ML VIAL NEB SCH (08:44)
[2021-03-21] MEDS: SODIUM CHLORIDE 0.65% NA SOLN 45 ML (OCEAN) PRN (09:15)
[2021-03-21] MEDS ORDERED: POTASSIUM CHLORIDE CRTAB 20 MEQ TABCR PO STA ×2 (09:50→14:56)
[2021-03-21] MEDS ORDERED: FUROSEMIDE 40 MG/4 ML VIAL IV ONE ×2 (10:00→14:56)
[2021-03-21] MEDS ORDERED: ALBUT/IPRATROP 3MG/0.5MG NEB 3 ML VIAL NEB PRN (10:23)
--- NOTE | 2021-03-21 10:30 | XRay Report ---
XR chest 1V portable CLINICAL HISTORY: Covid pneumonia TECHNIQUE: Single frontal radiograph of the chest was obtained. Comparison: Comparison is made to chest one view 03/17/2021 FINDINGS: No lines and tubes are seen. The cardiomediastinal silhouette is normal. Prominence and cephalization of the vasculature is seen. There are ill-defined airspace opacities in the lateral lungs. No eviden ce of pleural effusion or pneumothorax. IMPRESSION: 1. Mild pulmonary edema. 2. Ill-defined airspace opacities compatible with history of pneumonia. ACT 112: Negative or not required by law. Electronically signed by: Nithin Tripp M.D. 03/21/2021 10:28 AM
--- NOTE | 2021-03-21 13:13 | Hospitalist Progress Note ---
Date of Service March 21, 2021 Assessment & Plan (1) Hypoxia: (2) Pneumonia due to COVID-19 virus: (3) COPD (chronic obstructive pulmonary disease): (4) Transaminitis: (5) Thrush: (6) Atrial fibrillation: (7) Tachy-silvestre syndrome: (8) Hypertension: (9) Tobacco abuse: (10) CKD (chronic kidney disease) stage 3, GFR 30-59 ml/min: Plan: Patient is a 75 yr female who has known past medical history of atrial fibrillation anticoagulated on warfarin, TBS status post PPM, chronic diastolic CHF, COPD, chronic tobacco abuse here, aortic valve stenosis, CKD stage III who presents to ED secondary to ill feeling and 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 Pneumonia due to COVID-19 #. Hypoxia #. H/O COPD --CXR:Moderate right lung airspace opacities which favor an infectious process. Radiographic follow-up to ensure resolution is recommended. Not vaccinated, signs and symptoms started a day after Thanksgiving. Continue Dexamethasone No remdesivir secondary to elevated LFTs No acute COPD exacerbation Pulmonary toilet ,Encourage to prone , using spirometer and flutter valve CRP 9.89, pro-Bharathi 0.07 Clinically not any better and has been requiring 15 L to maintain saturation Clinically better with less cough and less shortness of breath Repeat chest x-ray showed worsening of pneumonia with possible congestive change We'll give Lasix 40 mg 2 times today with potassium supplement and monitor PRP #. Transaminitis Possibly due to Covid Hepatitis panel negative Monitor LFTs LFTs trending down-we will check tomorrow 03/21/2021 LFTs are mildly elevated but stable #. Thrush Continue clotrimazole troch #. Afib TBS s/p ppm continue amiodarone, metoprolol INR subtherapeutic: 1.8>2.8>3.7>2.9 DC Lovenox resume Coumadin 03/18 Monitor INR-remains therapeutic We'll check INR tomorrow that is 03/22/21 #. Urinary tract infection Urine culture growing E coli Status post Rocephin #. 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 DVT px: Coumadin-On Hold CODE STATUS Conditional code: no CPR/mech vent; Agrees with cpap/bipap use Admission and Anticipated Discharge Date Admission Date: March 13, 2021 Subjective 03/19/2021 The patient was seen and examined in the Covid unit She has been feeling better but he still requires about 15 L of oxygen to maintain saturation 03/20/2021 Patient was seen and examined in the Covid unit She has been feeling much better today but is still requiring about 15 L to maintain saturation Has cough 03/21/21 The patient was seen and examined in the Covid unit She has been feeling better but her x-ray looks worse with possible mild congestion Cough is better and remains shortness of breath at rest Review of Systems Review of Systems: All systems reviewed and are unremarkable except as noted below Respiratory: Cough with mild shortness of breath at rest Physical Exam Physical Exam: Lying in bed with minimal respiratory distress Constitutional: well developed, well nourished, + ill appearing and + obese Eyes: PERRL, conjunctivae normal, anicteric sclerae ENMT: external ear and nose normal, oropharynx normal Neck: trachea midline, no thyromegaly Respiratory: + respiratory distress Auscultation: + diminished lung sounds and + crackles (Minimal at the bases) Cardiovascular: Rate/Rhythm: regular rate and regular rhythm; not tachycardic Heart Sounds: normal S1 and normal S2; no murmur Extremities: + edema (Trace edema bilaterally) Gastrointestinal (Abdomen): Inspection/Auscultation: normal bowel sounds; abdo men not distended Percussion/Palpation: abdomen soft; abdomen nontender Musculoskeletal: No acute arthritis in any joint Neurologic: Alert, awake and oriented x3. Generally weak Lymphatic: no cervical or axillary lymphadenopathy Results & Data Results & Data ([facility]) Vital Signs (Past 12 Hours) Vital Signs Temp Pulse Resp BP BP Pulse Ox 03/21/21 11:19 36.6 C 88 16 120/73 92 03/21/21 10:18 82 L 03/21/21 10:17 77 L 03/21/21 08:44 61 18 94 03/21/21 07:32 36.6 C 64 20 126/75 94 Laboratory Results [facility] 03/21/21 07:17 Sodium 138 Potassium 3.5 Chloride 100 Carbon Dioxide 30 BUN 23 H Creatinine 0.76 Glucose 108 H Calcium 8.5 Liver Function 03/21/21 Range/Units 07:17 Total Bilirubin 0.6 (0.2-1) mg/dl AST 57 H (15-37) U/L ALT 87 H (12-78) Alkaline Phosphatase 103 (45-117) U/L Albumin 2.1 L (3.4-5.0) gm/dl Medications Administered Current Inpatient Medications Acetaminophen (Acetaminophen 325 Mg Tab) 650 mg PO Q4H PRN PRN Reason: Pain or Fever Stop: 04/12/21 17:50 Al Hydrox/Mg Hydrox/Simethicone (Aluminum/Magnesium Susp 30 Ml Udc) 15 ml PO Q4H PRN PRN Reason: Dyspepsia Stop: 04/12/21 17:50 Albuterol (Albut/Ipratrop 3mg/0.5mg Neb 3 Ml Vial) 3 ml NEB Q4 PRN PRN Reason: Shortness Of Breath Or Wheezing Stop: 04/20/21 10:22 Amiodarone HCl (Amiodarone 200 Mg Tab) 200 mg PO HS [facility] Stop: 04/12/21 20:59 Last Admin: 03/20/21 20:22 Dose: 200 mg Documented by: Benzonatate (Benzonatate 100 Mg Capsule) 100 mg PO TID [facility] Stop: 04/12/21 20:59 Last Admin: 03/21/21 08:37 Dose: 100 mg Documented by: Clotrimazole (Clotrimazole 10 Mg Pérez) 10 mg BUCCAL [id number] [facility] Stop: 03/23/21 18:59 Last Admin: 03/21/21 11:12 Dose: 10 mg Documented by: Al Hydrox/Mg Hydrox/Simethicone 50 ml/Diphenhydramine HCl 125 mg/Lidocaine HCl 40 ml/Sucralfate 10,000 mg/ [employer] IDENTIFIER 1 ea 0 ml PO Q4H PRN PRN Reason: sore mouth Stop: 04/12/21 17:50 Last Admin: 03/16/21 12:56 Dose: 5 ml Documented by: Cyanocobalamin (Cyanocobalamin 500 Mcg Tablet (Vitamin B-12)) 500 mcg PO QAM [facility] Stop: 04/13/21 08:59 Last Admin: 03/21/21 08:37 Dose: 500 mcg Documented by: Famotidine (Famotidine 20 Mg Tab) 20 mg PO QAM [facility] Stop: 04/13/21 08:59 Last Admin: 03/21/21 08:37 Dose: 20 mg Documented by: Fluticasone Propionate (Fluticasone Propionate Na Spr 16 Gm Btl) 2 sprays NA DAILY PRN PRN Reason: Nasal Congestion Stop: 04/12/21 17:50 Last Admin: 03/20/21 08:51 Dose: 2 sprays Documented by: Furosemide (Furosemide 20 Mg Tab) 20 mg PO QAM [facility] Stop: 04/15/21 08:59 Last Admin: 03/21/21 08:37 Dose: 20 mg Documented by: Guaifenesin/Dextromethorphan (Guaifenesin/Dextrom Syrup 200mg/20mg 10ml Udc) 10 ml PO Q6H PRN PRN Reason: Cough Stop: 04/12/21 17:50 Dexamethasone 6 mg/ Syringe 1.5 mls @ 1 mls/min IV DAILY [facility] Stop: 03/22/21 09:02 Last Admin: 03/21/21 08:38 Dose: 1 mls/min Documented by: Levothyroxine Sodium (Levothyroxine Sodium 50 Mcg Tablet) 50 mcg PO DAILYBB [facility] Stop: 04/13/21 06:29 Last Admin: 03/21/21 05:43 Dose: 50 mcg Documented by: Magnesium Hydroxide (Magnesium Hydroxide Susp 30 Ml Udc) 30 ml PO Q12H PRN PRN Reason: Constipation Stop: 04/12/21 17:50 Metoprolol Succinate (Metoprolol Succ 25mg Ext Rel Tab) 25 mg PO HS [facility] Stop: 04/12/21 20:59 Last Admin: 03/20/21 20:22 Dose: 25 mg Documented by: Ondansetron HCl (Ondansetron Inj 2 Mg/Ml 2 Ml Vial) 4 mg IV Q6H PRN PRN Reason: Nausea Stop: 04/12/21 17:50 Pantoprazole Sodium (Pantoprazole 40 Mg Tab) 40 mg PO BID [facility]; Protocol Stop: 04/12/21 20:59 Last Admin: 03/21/21 08:37 Dose: 40 mg Documented by: Polyethylene Glycol (Polyethylene (Miralax) 17 Gm Pack) 17 gm PO DAILY PRN PRN Reason: Constipation Stop: 04/12/21 17:50 Sodium Chloride (Sodium Chloride 0.65% Na Soln 45 Ml ([place])) 0 sprays NA NOW PRN PRN Reason: Nasal Congestion Stop: 04/19/21 11:12 Last Admin: 03/20/21 11:54 Dose: 2 sprays Documented by: Umeclidinium/Vilanterol (Umeclidinium/Vilanterol 62.5/25mcg 7 Puffs/Inhaler) 1 puffs INH QAM [facility] Stop: 04/13/21 08:59 Last Admin: 03/21/21 08:36 Dose: 1 puffs Documented by: Warfarin Sodium (Warfarin Sod 1 Mg Tab) 1 mg PO DAILY@1600 [facility] Stop: 04/14/21 15:59 Last Admin: 03/20/21 16:25 Dose: 1 mg Documented by:
[2021-03-21] MEDS ORDERED: OXYMETAZOLINE 0.05% 30 ML BTL NAE ONE (14:27)
--- NOTE | 2021-03-21 14:49 | XRay Report ---
XR chest 1V portable CLINICAL HISTORY: r/o pneumothorax TECHNIQUE: Single frontal radiograph of the chest was obtained. Comparison: Comparison is made to chest one view 03/21/2021 FINDINGS: No lines and tubes are seen. The cardiomediastinal silhouette is normal. There is prominence and ceph alization of the vasculature with Oscar B lines seen. There is suggestion of ill-defined airspace op acities. No evidence of pleural effusion or pneumothorax. IMPRESSION: Moderate pulmonary edema with ill-defined airspace opacities compatible with history of pneumonia. No pneumothorax is seen. ACT 112: Negative or not required by law. Electronically signed by: Nithin Tripp M.D. 03/21/2021 2:47 PM
[2021-03-21] MEDS: WARFARIN SOD 1 MG TAB PO SCH (15:27)
[2021-03-21] MEDS: METOPROLOL SUCC 25MG EXT REL TAB PO SCH (20:29)
[2021-03-21] MEDS: AMIODARONE 200 MG TAB PO SCH (20:29)
[2021-03-21] MEDS: OXYMETAZOLINE 0.05% 30 ML BTL NAE SCH (20:30)
[2021-03-22] MEDS: CLOTRIMAZOLE 10 MG TROCHE BUCCAL SCH ×6 (00:45→22:55)
[2021-03-22] MEDS: LEVOTHYROXINE SODIUM 50 MCG TABLET PO SCH (05:59)
[2021-03-22 06:49] LABS: INR 2.5 (0.9-1.1); Prothrombin Time 23.3 Seconds (9.0-12.0)
[2021-03-22 07:07] LABS: Magnesium 2.1 mg/dl (1.8-2.4)
[2021-03-22 07:22] LABS: BUN Creatinine Ratio 38.4 (10-20); Calcium 8.9 mg/dl (8.5-10.1); Creatinine Clr Calc Pharmacy 69.6 ml/min; Est GFR (African American) 97.9 ml/min; Est GFR (Non-African American) 84.5 ml/min; Potassium 4.4 mmol/L (3.5-5.1)
[2021-03-22] MEDS: dexAMETHasone 6 MG in SYRINGE 0 ML IV SCH (08:22)
[2021-03-22] MEDS: BENZONATATE 100 MG CAPSULE PO SCH ×3 (08:23→20:34)
[2021-03-22] MEDS: UMECLIDINIUM/VILANTEROL 62.5/25MCG 7 PUFFS/INHALER INH SCH (08:23)
[2021-03-22] MEDS: FUROSEMIDE 20 MG TAB PO SCH (08:24)
[2021-03-22] MEDS: FAMOTIDINE 20 MG TAB PO SCH (08:24)
[2021-03-22] MEDS: PANTOprazole 40 MG TAB PO SCH ×2 (08:25→20:34)
[2021-03-22] MEDS: CYANOCOBALAMIN 500 MCG TABLET (VITAMIN B-12) PO SCH (08:26)
[2021-03-22] MEDS: OXYMETAZOLINE 0.05% 30 ML BTL NAE SCH ×2 (08:28→20:36)
[2021-03-22] MEDS: WARFARIN SOD 1 MG TAB PO SCH (15:30)
[2021-03-22] MEDS ORDERED: FUROSEMIDE 40 MG/4 ML VIAL IV ONE ×2 (16:00→17:45)
--- NOTE | 2021-03-22 16:00 | Hospitalist Progress Note ---
Date of Service March 22, 2021 Assessment & Plan (1) Hypoxia: (2) Pneumonia due to COVID-19 virus: (3) COPD (chronic obstructive pulmonary disease): (4) Transaminitis: (5) Thrush: (6) Atrial fibrillation: (7) Tachy-silvestre syndrome: (8) Hypertension: (9) Tobacco abuse: (10) CKD (chronic kidney disease) stage 3, GFR 30-59 ml/min: Plan: Patient is a 75 yr female who has known past medical history of atrial fibrillation anticoagulated on warfarin, TBS status post PPM, chronic diastolic CHF, COPD, chronic tobacco abuse here, aortic valve stenosis, CKD stage III who presents to ED secondary to ill feeling and short of breath x1 week [employer] ST[employer]. 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 Pneumonia due to COVID-19 #. Hypoxia #. H/O COPD --CXR:Moderate right lung airspace opacities which favor an infectious process. Radiographic follow-up to ensure resolution is recommended. Not vaccinated, signs and symptoms started a day after Thanksgiving. Continue Dexamethasone No remdesivir secondary to elevated LFTs No acute COPD exacerbation Pulmonary toilet ,Encourage to prone , using spirometer and flutter valve CRP 9.89, pro-Bharathi 0.07 Clinically not any better and has been requiring 15 L to maintain saturation Clinically better with less cough and less shortness of breath Repeat chest x-ray showed worsening of pneumonia with possible congestive change We'll give Lasix 40 mg 2 times today with potassium supplement and monitor PRP Cumulative fluid balance is negative at 1800 mL and she is feeling much better Will give another dose of Lasix today #. Transaminitis Possibly due to Covid Hepatitis panel negative Monitor LFTs LFTs trending down-we will check tomorrow 03/21/2021 LFTs are mildly elevated but stable #. Thrush Continue clotrimazole troch #. Afib TBS s/p ppm continue amiodarone, metoprolol INR subtherapeutic: 1.8>2.8>3.7>2.9 DC Lovenox resume Coumadin 03/18 Monitor INR-remains therapeutic We'll check INR tomorrow that is 03/22/21 #. Urinary tract infection Urine culture growing E coli Status post Rocephin #. 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 DVT px: Coumadin-On Hold CODE STATUS Conditional code: no CPR/mech vent; Agrees with cpap/bipap use Admission and Anticipated Discharge Date Admission Date: March 13, 2021 Subjective 03/19/2021 The patient was seen and examined in the Covid unit She has been feeling better but he still requires about 15 L of oxygen to maintain saturation 03/20/2021 Patient was seen and examined in the Covid unit She has been feeling much better today but is still requiring about 15 L to maintain saturation Has cough 03/21/21 The patient was seen and examined in the Covid unit She has been feeling better but her x-ray looks worse with possible mild congestion Cough is better and remains shortness of breath at rest 03/22/2021 The patient was seen and examined in Covid unit She has had an episode last evening with increasing shortness of breath and requiring more oxygen likely secondary to anxiety Has been feeling much better this morning and requiring less oxygen to maintain saturation Review of Systems Review of Systems: All systems reviewed and are unremarkable except as noted below Respiratory: Cough with mild shortness of breath at rest Physical Exam Physical Exam: Lying in bed with minimal respiratory distress Constitutional: well developed, well nourished, + ill appearing and + obese Eyes: PERRL, conjunctivae normal, anicteric sclerae ENMT: external ear and nose normal, oropharynx normal Neck: trachea midline, no thyromegaly Respiratory: + respiratory distress Auscultation: + diminished lung sounds and + crackles (Minimal at the bases) Cardiovascular: Rate/Rhythm: regular rate and regular rhythm; not tachycardic Heart Sounds: normal S1 and normal S2; no murmur Extremities: + edema (Trace edema bilaterally) Gastrointestinal (Abdomen): Inspection/Auscultation: normal bowel sounds; abdomen not distended Percussion/Palpation: abdomen soft; abdomen nontender Musculoskeletal: No acute arthritis in any joint Neurologic: Alert, awake and oriented x3. No focal sensory and motor deficit appreciated Lymphatic: no cervical or axillary lymphadenopathy Results & Data Results & Data ([facility]) Vital Signs (Past 12 Hours) Vital Signs Temp Pulse Resp BP BP Pulse Ox 03/22/21 15:37 35.6 C L 61 20 110/71 93 03/22/21 11:00 36.7 C 62 22 112/70 93 03/22/21 06:37 36.5 C 65 20 120/77 95 Laboratory Results [facility] 03/22/21 05:44 Sodium 134 L Potassium 4.4 D Chloride 97 L Carbon Dioxide 31 BUN 27 H Creatinine 0.71 Glucose 102 H Calcium 8.9 Medications Administered Current Inpatient Medications Acetaminophen (Acetaminophen 325 Mg Tab) 650 mg PO Q4H PRN PRN Reason: Pain or Fever Stop: 04/12/21 17:50 Al Hydrox/Mg Hydrox/Simethicone (Aluminum/Magnesium Susp 30 Ml Udc) 15 ml PO Q4H PRN PRN Reason: Dyspepsia Stop: 04/12/21 17:50 Albuterol (Albut/Ipratrop 3mg/0.5mg Neb 3 Ml Vial) 3 ml NEB Q4 PRN PRN Reason: Shortness Of Breath Or Wheezing Stop: 04/20/21 10:22 Amiodarone HCl (Amiodarone 200 Mg Tab) 200 mg PO HS [facility] Stop: 04/12/21 20:59 Last Admin: 03/21/21 20:29 Dose: 200 mg Documented by: Benzonatate (Benzonatate 100 Mg Capsule) 100 mg PO TID [facility] Stop: 04/12/21 20:59 Last Admin: 03/22/21 13:22 Dose: 100 mg Documented by: Clotrimazole (Clotrimazole 10 Mg Pérez) 10 mg BUCCAL [id number] [facility] Stop: 03/23/21 18:59 Last Admin: 03/22/21 14:18 Dose: 10 mg Documented by: Al Hydrox/Mg Hydrox/Simethicone 50 ml/Diphenhydramine HCl 125 mg/Lidocaine HCl 40 ml/Sucralfate 10,000 mg/ [employer]ENTIFIER 1 ea 0 ml PO Q4H PRN PRN Reason: sore mouth Stop: 04/12/21 17:50 Last Admin: 03/16/21 12:56 Dose: 5 ml Documented by: Cyanocobalamin (Cyanocobalamin 500 Mcg Tablet (Vitamin B-12)) 500 mcg PO QAM [facility] Stop: 04/13/21 08:59 Last Admin: 03/22/21 08:26 Dose: 500 mcg Documented by: Famotidine (Famotidine 20 Mg Tab) 20 mg PO QAM [facility] Stop: 04/13/21 08:59 Last Admin: 03/22/21 08:24 Dose: 20 mg Documented by: Fluticasone Propionate (Fluticasone Propionate Na Spr 16 Gm Btl) 2 sprays NA DAILY PRN PRN Reason: Nasal Congestion Stop: 04/12/21 17:50 Last Admin: 03/20/21 08:51 Dose: 2 sprays Documented by: Furosemide (Furosemide 20 Mg Tab) 20 mg PO QAM [facility] Stop: 04/15/21 08:59 Last Admin: 03/22/21 08:24 Dose: 20 mg Documented by: Guaifenesin/Dextromethorphan (Guaifenesin/Dextrom Syrup 200mg/20mg 10ml Udc) 10 ml PO Q6H PRN PRN Reason: Cough Stop: 04/12/21 17:50 Levothyroxine Sodium (Levothyroxine Sodium 50 Mcg Tablet) 50 mcg PO DAILYBB [facility] Stop: 04/13/21 06:29 Last Admin: 03/22/21 05:59 Dose: 50 mcg Documented by: Magnesium Hydroxide (Magnesium Hydroxide Susp 30 Ml Udc) 30 ml PO Q12H PRN PRN Reason: Constipation Stop: 04/12/21 17:50 Metoprolol Succinate (Metoprolol Succ 25mg Ext Rel Tab) 25 mg PO HS [facility] Stop: 04/12/21 20:59 Last Admin: 03/21/21 20:29 Dose: 25 mg Documented by: Ondansetron HCl (Ondansetron Inj 2 Mg/Ml 2 Ml Vial) 4 mg IV Q6H PRN PRN Reason: Nausea Stop: 04/12/21 17:50 Oxymetazoline HCl (Oxymetazoline 0.05% 30 Ml Btl) 1 sprays YESICA BID [facility] Stop: 04/20/21 20:59 Last Admin: 03/22/21 08:28 Dose: 1 sprays Documented by: Pantoprazole Sodium (Pantoprazole 40 Mg Tab) 40 mg PO BID [facility]; Protocol Stop: 04/12/21 20:59 Last Admin: 03/22/21 08:25 Dose: 40 mg Documented by: Polyethylene Glycol (Polyethylene (Miralax) 17 Gm Pack) 17 gm PO DAILY PRN PRN Reason: Constipation Stop: 04/12/21 17:50 Sodium Chloride (Sodium Chloride 0.65% Na Soln 45 Ml ([place])) 0 sprays NA NOW PRN PRN Reason: Nasal Congestion Stop: 04/19/21 11:12 Last Admin: 03/21/21 09:15 Dose: 2 sprays Documented by: Umeclidinium/Vilanterol (Umeclidinium/Vilanterol 62.5/25mcg 7 Puffs/Inhaler) 1 puffs INH QAM [facility] Stop: 04/13/21 08:59 Last Admin: 03/22/21 08:23 Dose: 1 puffs Documented by: Warfarin Sodium (Warfarin Sod 1 Mg Tab) 1 mg PO DAILY@1600 [facility] Stop: 04/14/21 15:59 Last Admin: 03/22/21 15:30 Dose: 1 mg Documented by:
[2021-03-22] MEDS: AMIODARONE 200 MG TAB PO SCH (20:34)
[2021-03-22] MEDS: METOPROLOL SUCC 25MG EXT REL TAB PO SCH (20:35)
[2021-03-23] MEDS: LEVOTHYROXINE SODIUM 50 MCG TABLET PO SCH (05:49)
[2021-03-23] MEDS: UMECLIDINIUM/VILANTEROL 62.5/25MCG 7 PUFFS/INHALER INH SCH (07:57)
[2021-03-23] MEDS: PANTOprazole 40 MG TAB PO SCH ×2 (07:58→20:04)
[2021-03-23] MEDS: CYANOCOBALAMIN 500 MCG TABLET (VITAMIN B-12) PO SCH (07:58)
[2021-03-23] MEDS: FUROSEMIDE 20 MG TAB PO SCH (07:58)
[2021-03-23] MEDS: CLOTRIMAZOLE 10 MG TROCHE BUCCAL SCH ×3 (07:58→15:17)
[2021-03-23] MEDS: OXYMETAZOLINE 0.05% 30 ML BTL NAE SCH ×2 (07:58→20:05)
[2021-03-23] MEDS: BENZONATATE 100 MG CAPSULE PO SCH ×3 (07:58→20:06)
[2021-03-23] MEDS: FAMOTIDINE 20 MG TAB PO SCH (07:58)
[2021-03-23] MEDS: WARFARIN SOD 1 MG TAB PO SCH (15:17)
--- NOTE | 2021-03-23 15:38 | Hospitalist Progress Note ---
Date of Service March 23, 2021 Assessment & Plan (1) Hypoxia: (2) Pneumonia due to COVID-19 virus: (3) COPD (chronic obstructive pulmonary disease): (4) Transaminitis: (5) Thrush: (6) Atrial fibrillation: (7) Tachy-silvestre syndrome: (8) Hypertension: (9) Tobacco abuse: (10) CKD (chronic kidney disease) stage 3, GFR 30-59 ml/min: Plan: Patient is a 75 yr female who has known past medical history of atrial fibrillation anticoagulated on warfarin, TBS status post PPM, chronic diastolic CHF, COPD, chronic tobacco abuse here, aortic valve stenosis, CKD stage III who presents to ED secondary to ill feeling and short of breath 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 Pneumonia due to COVID-19 #. Hypoxia #. H/O COPD --CXR:Moderate right lung airspace opacities which favor an infectious process. Radiographic follow-up to ensure resolution is recommended. Not vaccinated, signs and symptoms started a day after Thanksgiving. Continue Dexamethasone No remdesivir secondary to elevated LFTs No acute COPD exacerbation Pulmonary toilet ,Encourage to prone , using spirometer and flutter valve CRP 9.89, pro-Bharathi 0.07 Clinically not any better and has been requiring 15 L to maintain saturation Clinically better with less cough and less shortness of breath Repeat chest x-ray showed worsening of pneumonia with possible congestive change We'll give Lasix 40 mg 2 times today with potassium supplement and monitor PRP Cumulative fluid balance is negative at 1800 mL and she is feeling much better Will give another dose of Lasix today 03/23/21 Clinically much better and has been requiring only 5 L to maintain saturation #. Transaminitis Possibly due to Covid Hepatitis panel negative Monitor LFTs LFTs trending down-we will check tomorrow 03/21/2021 LFTs are mildly elevated but stable #. Thrush Continue clotrimazole troch #. Afib TBS s/p ppm continue amiodarone, metoprolol INR subtherapeutic: 1.8>2.8>3.7>2.9 DC Lovenox resume Coumadin 03/18 Monitor INR-remains therapeutic We'll check INR tomorrow that is 03/22/21-2.5 #. Urinary tract infection Urine culture growing E coli Status post Rocephin #. 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 DVT px: Coumadin-On Hold CODE STATUS Conditional code: no CPR/mech vent; Agrees with cpap/bipap use Admission and Anticipated Discharge Date Admission Date: March 13, 2021 Subjective 03/19/2021 The patient was seen and examined in the Covid unit She has been feeling better but he still requires about 15 L of oxygen to maintain saturation 03/20/2021 Patient was seen and examined in the Covid unit She has been feeling much better today but is still requiring about 15 L to maintain saturation Has cough 03/21/21 The patient was seen and examined in the Covid unit She has been feeling better but her x-ray looks worse with possible mild congestion Cough is better and remains shortness of breath at rest 03/22/2021 The patient was seen and examined in Covid unit She has had an episode last evening with increasing shortness of breath and requiring more oxygen likely secondary to anxiety Has been feeling much better this morning and requiring less oxygen to maintain saturation 03/23/2021 The patient was seen and examined in Covid unit She has been feeling little better today and requiring about 5 L of oxygen to maintain saturation Review of Systems Review of Systems: Systems reviewed and are unremarkable except as noted below Physical Exam Physical Exam: Lying in bed with minimal respiratory distress Constitutional: well developed, well nourished, + ill appearing and + obese Eyes: PERRL, conjunctivae normal, anicteric sclerae ENMT: external ear and nose normal, oropharynx normal Neck: trachea midline, no thyromegaly Respiratory: + respiratory distress Auscultation: + diminished lung sounds and + crackles (Minimal at the bases) Cardiovascular: Rate/Rhythm: regular rate and regular rhythm; not tachycardic Heart Sounds: normal S1 and normal S2; no murmur Extremities: + edema (Trace edema bilaterally) Gastrointestinal (Abdomen): Inspection/Auscultation: normal bowel sounds; abdomen not distended Percussion/Palpation: abdomen soft; abdomen nontender Musculoskeletal: No acute arthritis in any joint Neurologic: Alert, awake and oriented x3 Lymphatic: no cervical or axillary lymphadenopathy Results & Data Results & Data ([facility]) Vital Signs (Past 12 Hours) Vital Signs Temp Pulse Resp BP BP Pulse Ox 03/23/21 15:26 36.4 C L 62 16 114/62 91 03/23/21 07:04 36.5 C 63 16 114/70 92 Medications Administered Current Inpatient Medications Acetaminophen (Acetaminophen 325 Mg Tab) 650 mg PO Q4H PRN PRN Reason: Pain or Fever Stop: 04/12/21 17:50 Al Hydrox/Mg Hydrox/Simethicone (Aluminum/Magnesium Susp 30 Ml Udc) 15 ml PO Q4H PRN PRN Reason: Dyspepsia Stop: 04/12/21 17:50 Albuterol (Albut/Ipratrop 3mg/0.5mg Neb 3 Ml Vial) 3 ml NEB Q4 PRN PRN Reason: Shortness Of Breath Or Wheezing Stop: 04/20/21 10:22 Amiodarone HCl (Amiodarone 200 Mg Tab) 200 mg PO HS [facility] Stop: 04/12/21 20:59 Last Admin: 03/22/21 20:34 Dose: 200 mg Documented by: Benzonatate (Benzonatate 100 Mg Capsule) 100 mg PO TID [facility] Stop: 04/12/21 20:59 Last Admin: 03/23/21 13:43 Dose: 100 mg Documented by: Clotrimazole (Clotrimazole 10 Mg Pérez) 10 mg BUCCAL [id number] [facility] Stop: 03/23/21 18:59 Last Admin: 03/23/21 15:17 Dose: 10 mg Documented by: Al Hydrox/Mg Hydrox/Simethicone 50 ml/Diphenhydramine HCl 125 mg/Lidocaine HCl 40 ml/Sucralfate 10,000 mg/ [employer] IDENTIFIER 1 ea 0 ml PO Q4H PRN PRN Reason: sore mouth Stop: 04/12/21 17:50 Last Admin: 03/16/21 12:56 Dose: 5 ml Documented by: Cyanocobalamin (Cyanocobalamin 500 Mcg Tablet (Vitamin B-12)) 500 mcg PO QAM [facility] Stop: 04/13/21 08:59 Last Admin: 03/23/21 07:58 Dose: 500 mcg Documented by: Famotidine (Famotidine 20 Mg Tab) 20 mg PO QAM [facility] Stop: 04/13/21 08:59 Last Admin: 03/23/21 07:58 Dose: 20 mg Documented by: Fluticasone Propionate (Fluticasone Propionate Na Spr 16 Gm Btl) 2 sprays NA DAILY PRN PRN Reason: Nasal Congestion Stop: 04/12/21 17:50 Last Admin: 03/20/21 08:51 Dose: 2 sprays Documented by: Furosemide (Furosemide 20 Mg Tab) 20 mg PO QAM [facility] Stop: 04/15/21 08:59 Last Admin: 03/23/21 07:58 Dose: 20 mg Documented by: Guaifenesin/Dextromethorphan (Guaifenesin/Dextrom Syrup 200mg/20mg 10ml Udc) 10 ml PO Q6H PRN PRN Reason: Cough Stop: 04/12/21 17:50 Levothyroxine Sodium (Levothyroxine Sodium 50 Mcg Tablet) 50 mcg PO DAILYBB [facility] Stop: 04/13/21 06:29 Last Admin: 03/23/21 05:49 Dose: 50 mcg Documented by: Magnesium Hydroxide (Magnesium Hydroxide Susp 30 Ml Udc) 30 ml PO Q12H PRN PRN Reason: Constipation Stop: 04/12/21 17:50 Metoprolol Succinate (Metoprolol Succ 25mg Ext Rel Tab) 25 mg PO [facility] Stop: 04/12/21 20:59 Last Admin: 03/22/21 20:35 Dose: 25 mg Documented by: Ondansetron HCl (Ondansetron Inj 2 Mg/Ml 2 Ml Vial) 4 mg IV Q6H PRN PRN Reason: Nausea Stop: 04/12/21 17:50 Oxymetazoline HCl (Oxymetazoline 0.05% 30 Ml Btl) 1 sprays YESICA BID [facility] Stop: 04/20/21 20:59 Last Admin: 03/23/21 07:58 Dose: 1 sprays Documented by: Pantoprazole Sodium (Pantoprazole 40 Mg Tab) 40 mg PO BID [facility]; Protocol Stop: 04/12/21 20:59 Last Admin: 03/23/21 07:58 Dose: 40 mg Documented by: Polyethylene Glycol (Polyethylene (Miralax) 17 Gm Pack) 17 gm PO DAILY PRN PRN Reason: Constipation Stop: 04/12/21 17:50 Sodium Chloride (Sodium Chloride 0.65% Na Soln 45 Ml ([place])) 0 sprays NA NOW PRN PRN Reason: Nasal Congestion Stop: 04/19/21 11:12 Last Admin: 03/21/21 09:15 Dose: 2 sprays Documented by: Umeclidinium/Vilanterol (Umeclidinium/Vilanterol 62.5/25mcg 7 Puffs/Inhaler) 1 puffs INH QAM [facility] Stop: 04/13/21 08:59 Last Admin: 03/23/21 07:57 Dose: 1 puffs Documented by: Warfarin Sodium (Warfarin Sod 1 Mg Tab) 1 mg PO DAILY@1600 [facility] Stop: 04/14/21 15:59 Last Admin: 03/23/21 15:17 Dose: 1 mg Documented by:
[2021-03-23] MEDS: AMIODARONE 200 MG TAB PO SCH (20:04)
[2021-03-23] MEDS: METOPROLOL SUCC 25MG EXT REL TAB PO SCH (20:04)
[2021-03-24] MEDS: LEVOTHYROXINE SODIUM 50 MCG TABLET PO SCH (05:40)
[2021-03-24 07:20] LABS: BUN Creatinine Ratio 34.5 (10-20); Calcium 9.1 mg/dl (8.5-10.1); Creatinine Clr Calc Pharmacy 57.5 ml/min; Est GFR (African American) 77.7 ml/min; Potassium 4.3 mmol/L (3.5-5.1)
[2021-03-24] MEDS: UMECLIDINIUM/VILANTEROL 62.5/25MCG 7 PUFFS/INHALER INH SCH (07:33)
[2021-03-24] MEDS: OXYMETAZOLINE 0.05% 30 ML BTL NAE SCH ×2 (07:35→20:31)
[2021-03-24] MEDS: FAMOTIDINE 20 MG TAB PO SCH (07:35)
[2021-03-24] MEDS: BENZONATATE 100 MG CAPSULE PO SCH ×3 (07:35→20:32)
[2021-03-24] MEDS: FUROSEMIDE 20 MG TAB PO SCH (07:35)
[2021-03-24] MEDS: CYANOCOBALAMIN 500 MCG TABLET (VITAMIN B-12) PO SCH (07:35)
[2021-03-24] MEDS: PANTOprazole 40 MG TAB PO SCH ×2 (07:35→20:31)
[2021-03-24] MEDS: WARFARIN SOD 1 MG TAB PO SCH (15:03)
--- NOTE | 2021-03-24 16:27 | Hospitalist Progress Note ---
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 Pneumonia due to COVID-19 #. Hypoxia #. H/O COPD --CXR:Moderate right lung airspace opacities which favor an infectious process. Radiographic follow-up to ensure resolution is recommended. Not vaccinated, signs and symptoms started a day after Thanksgiving. Continue Dexamethasone No remdesivir secondary to elevated LFTs No acute COPD exacerbation Pulmonary toilet ,Encourage to prone , using spirometer and flutter valve CRP 9.89, pro-Bharathi 0.07 Clinically not any better and has been requiring 15 L to maintain saturation Clinically better with less cough and less shortness of breath Repeat chest x-ray showed worsening of pneumonia with possible congestive change We'll give Lasix 40 mg 2 times today with potassium supplement and monitor PRP Cumulative fluid balance is negative at 1800 mL and she is feeling much better Will give another dose of Lasix today 03/23/21 Clinically much better and has been requiring only 5 L to maintain saturation Clinically better but is still requiring same amount of oxygen #. Transaminitis Possibly due to Covid Hepatitis panel negative Monitor LFTs LFTs trending down-we will check tomorrow 03/21/2021 LFTs are mildly elevated but stable We will check LFT tomorrow #. Thrush Continue clotrimazole troch #. Afib TBS s/p ppm continue amiodarone, metoprolol INR subtherapeutic: 1.8>2.8>3.7>2.9 DC Lovenox resume Coumadin 03/18 Monitor INR-remains therapeutic We'll check INR tomorrow that is 03/22/21-2.5 Check INR tomorrow #. Urinary tract infection Urine culture growing E coli Status post Rocephin #. 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 DVT px: Coumadin-On Hold CODE STATUS Conditional code: no CPR/mech vent; Agrees with cpap/bipap use Admission and Anticipated Discharge Date Admission Date: March 13, 2021 Subjective 03/19/2021 The patient was seen and examined in the Covid unit She has been feeling better but he still requires about 15 L of oxygen to maintain saturation 03/20/2021 Patient was seen and examined in the Covid unit She has been feeling much better today but is still requiring about 15 L to maintain saturation Has cough 03/21/21 The patient was seen and examined in the Covid unit She has been feeling better but her x-ray looks worse with possible mild congestion Cough is better and remains shortness of breath at rest 03/22/2021 The patient was seen and examined in Covid unit She has had an episode last evening with increasing shortness of breath and requiring more oxygen likely secondary to anxiety Has been feeling much better this morning and requiring less oxygen to maintain saturation 03/23/2021 The patient was seen and examined in Covid unit She has been feeling little better today and requiring about 5 L of oxygen to maintain saturation 03/24/2021 The patient was seen and examined in Covid unit She has been feeling much better and requires about 4 to 5 L of oxygen to maintain saturation Her cough is improved Review of Systems Review of Systems: Systems reviewed and are unremarkable except as noted below Respiratory: Cough with mild shortness of breath at rest Physical Exam Physical Exam: Lying in bed with minimal respiratory distress Constitutional: well developed, well nourished, + ill appearing and + obese Eyes: PERRL, conjunctivae normal, anicteric sclerae ENMT: external ear and nose normal, oropharynx normal Neck: trachea midline, no thyromegaly Respiratory: + respiratory distress Auscultation: + diminished lung sounds and + crackles (Minimal at the bases) Cardiovascular: Rate/Rhythm: regular rate and regular rhythm; not tachycardic Heart Sounds: normal S1 and normal S2; no murmur Extremities: + edema (Trace edema bilaterally) Gastrointestinal (Abdomen): Inspection/Auscultation: normal bowel sounds; abdomen not distended Percussion/Palpation: abdomen soft; abdomen nontender Musculoskeletal: No acute arthritis in any joint Neurologic: Alert, awake and oriented x3. No focal sensory and motor deficit appreciated Lymphatic: no cervical or axillary lymphadenopathy Results & Data Results & Data ([facility]) Vital Signs (Past 12 Hours) Vital Signs Temp Pulse Resp BP Pulse Ox 03/24/21 15:59 36.4 C L 62 18 122/78 94 03/24/21 07:39 36.5 C 62 20 106/70 96 Laboratory Results BMP 03/24/21 05:53 Sodium 131 L Potassium 4.3 Chloride 96 L Carbon Dioxide 28 BUN 30 H Creatinine 0.86 Glucose 89 Calcium 9.1 Medications Administered Current Inpatient Medications Acetaminophen (Acetaminophen 325 Mg Tab) 650 mg PO Q4H PRN PRN Reason: Pain or Fever Stop: 04/12/21 17:50 Al Hydrox/Mg Hydrox/Simethicone (Aluminum/Magnesium Susp 30 Ml Udc) 15 ml PO Q4H PRN PRN Reason: Dyspepsia Stop: 04/12/21 17:50 Albuterol (Albut/Ipratrop 3mg/0.5mg Neb 3 Ml Vial) 3 ml NEB Q4 PRN PRN Reason: Shortness Of Breath Or Wheezing Stop: 04/20/21 10:22 Amiodarone HCl (Amiodarone 200 Mg Tab) 200 mg PO [facility] Stop: 04/12/21 20:59 Last Admin: 03/23/21 20:04 Dose: 200 mg Documented by: Benzonatate (Benzonatate 100 Mg Capsule) 100 mg PO TID [facility] Stop: 04/12/21 20:59 Last Admin: 03/24/21 15:03 Dose: 100 mg Documented by: Al Hydrox/Mg Hydrox/Simethicone 50 ml/Diphenhydramine HCl 125 mg/Lidocaine HCl 40 ml/Sucralfate 10,000 mg/ [employer] IDENTIFIER 1 ea 0 ml PO Q4H PRN PRN Reason: sore mouth Stop: 04/12/21 17:50 Last Admin: 03/16/21 12:56 Dose: 5 ml Documented by: Cyanocobalamin (Cyanocobalamin 500 Mcg Tablet (Vitamin B-12)) [facility] Stop: 04/13/21 08:59 Last Admin: 03/24/21 07:35 Dose: 500 mcg Documented by: Famotidine (Famotidine 20 Mg Tab) [facility] Stop: 04/13/21 08:59 Last Admin: 03/24/21 07:35 Dose: 20 mg Documented by: Fluticasone Propionate (Fluticasone Propionate Na Spr 16 Gm Btl) 2 sprays NA DAILY PRN PRN Reason: Nasal Congestion Stop: 04/12/21 17:50 Last Admin: 03/20/21 08:51 Dose: 2 sprays Documented by: Furosemide (Furosemide 20 Mg Tab) 20 mg PO [facility] Stop: 04/15/21 08:59 Last Admin: 03/24/21 07:35 Dose: 20 mg Documented by: Guaifenesin/Dextromethorphan (Guaifenesin/Dextrom Syrup 200mg/20mg 10ml Udc) 10 ml PO Q6H PRN PRN Reason: Cough Stop: 04/12/21 17:50 Levothyroxine Sodium (Levothyroxine Sodium 50 Mcg Tablet) [facility] Stop: 04/13/21 06:29 Last Admin: 03/24/21 05:40 Dose: 50 mcg Documented by: Magnesium Hydroxide (Magnesium Hydroxide Susp 30 Ml Udc) 30 ml PO Q12H PRN PRN Reason: Constipation Stop: 04/12/21 17:50 Metoprolol Succinate (Metoprolol Succ 25mg Ext Rel Tab) 25 mg PO [facility] Stop: 04/12/21 20:59 Last Admin: 03/23/21 20:04 Dose: 25 mg Documented by: Ondansetron HCl (Ondansetron Inj 2 Mg/Ml 2 Ml Vial) 4 mg IV Q6H PRN PRN Reason: Nausea Stop: 04/12/21 17:50 Oxymetazoline HCl (Oxymetazoline 0.05% 30 Ml Btl) 1 sprays [place] BID [facility] Stop: 04/20/21 20:59 Last Admin: 03/24/21 07:35 Dose: 1 sprays Documented by: Pantoprazole Sodium (Pantoprazole 40 Mg Tab) 40 mg PO BID [facility]; Protocol Stop: 04/12/21 20:59 Last Admin: 03/24/21 07:35 Dose: 40 mg Documented by: Polyethylene Glycol (Polyethylene (Miralax) 17 Gm Pack) 17 gm PO DAILY PRN PRN Reason: Constipation Stop: 04/12/21 17:50 Sodium Chloride (Sodium Chloride 0.65% Na Soln 45 Ml ([place])) 0 sprays NA NOW PRN PRN Reason: Nasal Congestion Stop: 04/19/21 11:12 Last Admin: 03/21/21 09:15 Dose: 2 sprays Documented by: Umeclidinium/Vilanterol (Umeclidinium/Vilanterol 62.5/25mcg 7 Puffs/Inhaler) 1 puffs INH QAM [facility] Stop: 04/13/21 08:59 Last Admin: 03/24/21 07:33 Dose: 1 puffs Documented by: Warfarin Sodium (Warfarin Sod 1 Mg Tab) 1 mg PO DAILY@[address] [place] Stop: 04/14/21 15:59 Last Admin: 03/24/21 15:03 Dose: 1 mg Documented by:
[2021-03-24] MEDS: AMIODARONE 200 MG TAB PO SCH (20:32)
[2021-03-24] MEDS: METOPROLOL SUCC 25MG EXT REL TAB PO SCH (20:32)
[2021-03-25] MEDS: LEVOTHYROXINE SODIUM 50 MCG TABLET PO SCH (05:28)
[2021-03-25 07:05] LABS: Mean Corpuscular Hgb Conc 33.6 g/dL (32-36); Mean Platelet Volume 10.7 fL (7.4-10.4); Platelet Count 318 K/uL (130-400)
[2021-03-25] MEDS: FUROSEMIDE 20 MG TAB PO SCH (07:08)
[2021-03-25] MEDS: CYANOCOBALAMIN 500 MCG TABLET (VITAMIN B-12) PO SCH (07:08)
[2021-03-25] MEDS: FAMOTIDINE 20 MG TAB PO SCH (07:09)
[2021-03-25] MEDS: BENZONATATE 100 MG CAPSULE PO SCH ×3 (07:09→20:36)
[2021-03-25] MEDS: OXYMETAZOLINE 0.05% 30 ML BTL NAE SCH ×2 (07:09→20:36)
[2021-03-25] MEDS: PANTOprazole 40 MG TAB PO SCH ×2 (07:09→20:36)
[2021-03-25] MEDS: UMECLIDINIUM/VILANTEROL 62.5/25MCG 7 PUFFS/INHALER INH SCH (07:09)
[2021-03-25 07:17] LABS: INR 1.8 (0.9-1.1); Prothrombin Time 17.7 Seconds (9.0-12.0)
[2021-03-25 07:33] LABS: ALC (manual) 2.17 K/uL (1.2-3.4); ANC (manual) 17.84 K/uL (1.4-6.5); Hematocrit (blood only) 44.4 % (37-47); Hemoglobin 14.9 g/dL (12.0-16.0); Lymphocytes # (manual) 2.17 K/uL (1.2-3.4); Lymphocytes % (manual) 10.4 %; Mean Corpuscular Hemoglobin 30.3 pg (25-34); Mean Corpuscular Volume 90.4 fL (80-100); Monocytes % (manual) 4.3 %; Neutrophils # (manual) 17.84 K/uL (1.4-6.5); Neutrophils % (manual) 85.3 %; RDW Coefficient of Variation 14.5 % (11.5-14.5); RDW Standard Deviation 48.3 fL (36.4-46.3); Red Blood Count 4.91 M/uL (4.2-5.4); White Blood Count 20.91 K/uL (4.8-10.8)
[2021-03-25 07:43] LABS: Albumin Globulin Ratio 0.5 (0.9-2); Albumin Level 2.1 gm/dl (3.4-5.0); BUN Creatinine Ratio 33.2 (10-20); C Reactive Protein 9.63 mg/dl (0-0.29); Calcium 8.8 mg/dl (8.5-10.1); Creatinine Clr Calc Pharmacy 58.9 ml/min; Est GFR (African American) 79.9 ml/min; Globulin 4.1 gm/dl (2.5-4.0); Potassium 3.6 mmol/L (3.5-5.1); Total Protein 6.2 gm/dl (6.4-8.2)
[2021-03-25] MEDS: diphenhydrAMINE Capsule 25 MG CAP PO PRN ×2 (07:51→20:36)
[2021-03-25] MEDS: WARFARIN SOD 1 MG TAB PO SCH (14:52)
--- NOTE | 2021-03-25 17:13 | Hospitalist Progress Note ---
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 Pneumonia due to COVID-19 #. Hypoxia #. H/O COPD --CXR:Moderate right lung airspace opacities which favor an infectious process. Radiographic follow-up to ensure resolution is recommended. Not vaccinated, signs and symptoms started a day after Thanksgiving. Continue Dexamethasone No remdesivir secondary to elevated LFTs No acute COPD exacerbation Pulmonary toilet ,Encourage to prone , using spirometer and flutter valve CRP 9.89, pro-Bharathi 0.07 Clinically not any better and has been requiring 15 L to maintain saturation Clinically better with less cough and less shortness of breath Repeat chest x-ray showed worsening of pneumonia with possible congestive change We'll give Lasix 40 mg 2 times today with potassium supplement and monitor PRP Cumulative fluid balance is negative at 1800 mL and she is feeling much better Will give another dose of Lasix today 03/23/21 Clinically much better and has been requiring only 4 L of oxygen to maintain saturation Has had physical therapy today CRP remains elevated at 9.63 Likely discharge in a day or 2 following a 2 step O2 saturation test #. Transaminitis Possibly due to Covid Hepatitis panel negative Monitor LFTs LFTs trending down-we will check tomorrow 03/21/2021 LFTs are mildly elevated but stable We will check LFT tomorrow-have been normalized #. Thrush Continue clotrimazole troch #. Afib TBS s/p ppm continue amiodarone, metoprolol INR subtherapeutic: 1.8>2.8>3.7>2.9 DC Lovenox resume Coumadin 03/18 Monitor INR-remains therapeutic We'll check INR tomorrow that is 03/22/21-2.5 Check INR tomorrow-1.8 today We will check it tomorrow #. Urinary tract infection Urine culture growing E coli Status post Rocephin #. 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 DVT px: Coumadin-On Hold CODE STATUS Conditional code: no CPR/mech vent; Agrees with cpap/bipap use Admission and Anticipated Discharge Date Admission Date: March 13, 2021 Subjective 03/19/2021 The patient was seen and examined in the Covid unit She has been feeling better but he still requires about 15 L of oxygen to maintain saturation 03/20/2021 Patient was seen and examined in the Covid unit She has been feeling much better today but is still requiring about 15 L to maintain saturation Has cough 03/21/21 The patient was seen and examined in the Covid unit She has been feeling better but her x-ray looks worse with possible mild congestion Cough is better and remains shortness of breath at rest 03/22/2021 The patient was seen and examined in Covid unit She has had an episode last evening with increasing shortness of breath and requiring more oxygen likely secondary to anxiety Has been feeling much better this morning and requiring less oxygen to maintain saturation 03/23/2021 The patient was seen and examined in Covid unit She has been feeling little better today and requiring about 5 L of oxygen to maintain saturation 03/24/2021 The patient was seen and examined in Covid unit She has been feeling much better and requires about 4 to 5 L of oxygen to maintain saturation Her cough is improved 03/25/2021 The patient was seen and examined in Covid unit She has been feeling much better and has been requiring only 4 L to maintain saturation Has minimal cough and mildly weak and lethargic Review of Systems Review of Systems: Systems reviewed and are unremarkable except as noted below Respiratory: Cough with mild shortness of breath at rest Physical Exam Physical Exam: Lying in bed with minimal respiratory distress Constitutional: well developed, well nourished, + ill appearing and + obese Eyes: PERRL, conjunctivae normal, anicteric sclerae ENMT: external ear and nose normal, oropharynx normal Neck: trachea midline, no thyromegaly Respiratory: + respiratory distress Auscultation: + diminished lung sounds and + crackles (Minimal at the bases) Cardiovascular: Rate/Rhythm: regular rate and regular rhythm; not tachycardic Heart Sounds: normal S1 and normal S2; no murmur Extremities: + edema (Trace edema bilaterally) Gastrointestinal (Abdomen): Inspection/Auscultation: normal bowel sounds; abdomen not distended Percussion/Palpation: abdomen soft; abdomen nontender Musculoskeletal: No acute arthritis in any joint Neurologic: Alert, awake and oriented x3. She is generally weak and lethargic but no focal neuro deficit Lymphatic: no cervical or axillary lymphadenopathy Results & Data Results & Data ([facility]) Vital Signs (Past 12 Hours) Vital Signs Temp Pulse Resp BP Pulse Ox Pulse Ox Pulse Ox 03/25/21 14:23 95 95 03/25/21 14:08 68 16 126/75 88 L 03/25/21 07:48 36.8 C 63 16 106/64 94 Pulse Ox 03/25/21 14:23 89 L 03/25/21 14:08 03/25/21 07:48 Laboratory Results Short CBC 03/25/21 Range/Units 06:11 WBC 20.91 H (4.8-10.8) K/uL Hgb 14.9 (12.0-16.0) g/dL Hct 44.4 (37-47) % Plt Count 318 (130-400) K/uL BMP 03/25/21 06:11 Sodium 133 L Potassium 3.6 D Chloride 97 L Carbon Dioxide 29 BUN 28 H Creatinine 0.84 Glucose 113 H Calcium 8.8 Liver Function 03/25/21 Range/Units 06:11 Total Bilirubin 1.0 (0.2-1) mg/dl AST 37 (15-37) U/L ALT 75 (12-78) Alkaline Phosphatase 107 (45-117) U/L Albumin 2.1 L (3.4-5.0) gm/dl Medications Administered Current Inpatient Medications Acetaminophen (Acetaminophen 325 Mg Tab) 650 mg PO Q4H PRN PRN Reason: Pain or Fever Stop: 04/12/21 17:50 Al Hydrox/Mg Hydrox/Simethicone (Aluminum/Magnesium Susp 30 Ml Udc) 15 ml PO Q4H PRN PRN Reason: Dyspepsia Stop: 04/12/21 17:50 Albuterol (Albut/Ipratrop 3mg/0.5mg Neb 3 Ml Vial) 3 ml NEB Q4 PRN PRN Reason: Shortness Of Breath Or Wheezing Stop: 04/20/21 10:22 Amiodarone HCl (Amiodarone 200 Mg Tab) 200 mg PO [facility] Stop: 04/12/21 20:59 Last Admin: 03/24/21 20:32 Dose: 200 mg Documented by: Benzonatate (Benzonatate 100 Mg Capsule) 100 mg PO TID [facility] Stop: 04/12/21 20:59 Last Admin: 03/25/21 14:52 Dose: 100 mg Documented by: Al Hydrox/Mg Hydrox/Simethicone 50 ml/Diphenhydramine HCl 125 mg/Lidocaine HCl 40 ml/Sucralfate 10,000 mg/ [employer] IDENTIFIER 1 ea 0 ml PO Q4H PRN PRN Reason: sore mouth Stop: 04/12/21 17:50 Last Admin: 03/16/21 12:56 Dose: 5 ml Documented by: Cyanocobalamin (Cyanocobalamin 500 Mcg Tablet (Vitamin B-12)) [address] [facility] Stop: 04/13/21 08:59 Last Admin: 03/25/21 07:08 Dose: 500 mcg Documented by: Diphenhydramine HCl (Diphenhydramine Capsule 25 Mg Cap) 25 mg PO Q6H PRN PRN Reason: Itching Stop: 04/24/21 07:15 Last Admin: 03/25/21 07:51 Dose: 25 mg Documented by: Famotidine (Famotidine 20 Mg Tab) [address] [facility] Stop: 04/13/21 08:59 Last Admin: 03/25/21 07:09 Dose: 20 mg Documented by: Fluticasone Propionate (Fluticasone Propionate Na Spr 16 Gm Btl) 2 sprays NA DAILY PRN PRN Reason: Nasal Congestion Stop: 04/12/21 17:50 Last Admin: 03/20/21 08:51 Dose: 2 sprays Documented by: Furosemide (Furosemide 20 Mg Tab) [address] [facility] Stop: 04/15/21 08:59 Last Admin: 03/25/21 07:08 Dose: 20 mg Documented by: Guaifenesin/Dextromethorphan (Guaifenesin/Dextrom Syrup 200mg/20mg 10ml Udc) 10 ml PO Q6H PRN PRN Reason: Cough Stop: 04/12/21 17:50 Levothyroxine Sodium (Levothyroxine Sodium 50 Mcg Tablet) 50 mcg PO DAILYBB [facility] Stop: 04/13/21 06:29 Last Admin: 03/25/21 05:28 Dose: 50 mcg Documented by: Magnesium Hydroxide (Magnesium Hydroxide Susp 30 Ml Udc) 30 ml PO Q12H PRN PRN Reason: Constipation Stop: 04/12/21 17:50 Metoprolol Succinate (Metoprolol Succ 25mg Ext Rel Tab) 25 mg PO [facility] Stop: 04/12/21 20:59 Last Admin: 03/24/21 20:32 Dose: 25 mg Documented by: Ondansetron HCl (Ondansetron Inj 2 Mg/Ml 2 Ml Vial) 4 mg IV Q6H PRN PRN Reason: Nausea Stop: 04/12/21 17:50 Oxymetazoline HCl (Oxymetazoline 0.05% 30 Ml Btl) 1 sprays YESICA BID [facility] Stop: 04/20/21 20:59 Last Admin: 03/25/21 07:09 Dose: 1 sprays Documented by: Pantoprazole Sodium (Pantoprazole 40 Mg Tab) 40 mg PO BID [facility]; Protocol Stop: 04/12/21 20:59 Last Admin: 03/25/21 07:09 Dose: 40 mg Documented by: Polyethylene Glycol (Polyethylene (Miralax) 17 Gm Pack) 17 gm PO DAILY PRN PRN Reason: Constipation Stop: 04/12/21 17:50 Sodium Chloride (Sodium Chloride 0.65% Na Soln 45 Ml ([place])) 0 sprays NA NOW PRN PRN Reason: Nasal Congestion Stop: 04/19/21 11:12 Last Admin: 03/21/21 09:15 Dose: 2 sprays Documented by: Umeclidinium/Vilanterol (Umeclidinium/Vilanterol 62.5/25mcg 7 Puffs/Inhaler) 1 puffs INH QAM [facility] Stop: 04/13/21 08:59 Last Admin: 03/25/21 07:09 Dose: 1 puffs Documented by: Warfarin Sodium (Warfarin Sod 1 Mg Tab) 1 mg PO DAILY@[address] [place] Stop: 04/14/21 15:59 Last Admin: 03/25/21 14:52 Dose: 1 mg Documented by:
[2021-03-25] MEDS: AMIODARONE 200 MG TAB PO SCH (20:35)
[2021-03-25] MEDS: METOPROLOL SUCC 25MG EXT REL TAB PO SCH (20:36)
[2021-03-26] MEDS: LEVOTHYROXINE SODIUM 50 MCG TABLET PO SCH (05:44)
[2021-03-26 06:50] LABS: INR 1.7 (0.9-1.1); Prothrombin Time 16.4 Seconds (9.0-12.0)
[2021-03-26] MEDS: FUROSEMIDE 20 MG TAB PO SCH (09:03)
[2021-03-26] MEDS: CYANOCOBALAMIN 500 MCG TABLET (VITAMIN B-12) PO SCH (09:03)
[2021-03-26] MEDS: PANTOprazole 40 MG TAB PO SCH (09:03)
[2021-03-26] MEDS: BENZONATATE 100 MG CAPSULE PO SCH ×2 (09:03→14:56)
[2021-03-26] MEDS: FAMOTIDINE 20 MG TAB PO SCH (09:03)
[2021-03-26] MEDS: OXYMETAZOLINE 0.05% 30 ML BTL NAE SCH (09:04)
[2021-03-26] MEDS: UMECLIDINIUM/VILANTEROL 62.5/25MCG 7 PUFFS/INHALER INH SCH (09:05)
[2021-03-26] MEDS: WARFARIN SOD 1 MG TAB PO SCH (14:56)
--- NOTE | 2021-03-26 15:48 | Discharge Summary ---
Date of Service March 26, 2021 Admission HPI Per Admitting Provider This is a 75-year-old female who has known past medical history of atrial fibrillation anticoagulated on warfarin, TBS status post PPM, chronic diastolic CHF, COPD, chronic tobacco abuse here, aortic valve stenosis, CKD stage III who presents to ED secondary to ill feeling and short of breath x1 week. She began to develop symptoms of dry cough, chills, shortness of breath, poor appetite, sore tongue and mouth and lightheadedness approximately 1 week ago. Her symptoms persistently worsen especially her shortness of breath. Today she had difficulty catching breath and therefore presented to ED. She is unvaccinated. Known sick contacts at home with son and grandson. Denies documented fever, sweats, dizziness, syncope, chest pain, palpitations, abdominal pain, dysuria, increased urgency or frequency of urination, melena or hematochezia. When symptoms first started she did have episode of diarrhea as well as nausea and vomiting but this has since resolved. In ED patient was hypoxic requiring 2 to 3 L of oxygen. Her lab work was significant for H&H 16.2 and 47.5, platelet 195, INR 1.5, sodium 133, BUN 25, creatinine 1.0, AST 344, ALT 149, alk phos 160, CK 283, CRP 9.89 and positive for SARS-CoV-2.Her chest x-ray was consistent with moderate right lung airspace opacities favoring an infectious process. She received IV fluids, oral Magic swizzle and IV dexamethasone. Admission Exam Per Admitting Provider Constitutional:� WD/WN, appears older than stated age, appears weak, ill but nontoxic appearing, vitals as above, NAD, sitting up in bed, pleasant, conversing easily Head: Normocephalic, Atraumatic Eyes:� PERRL, conjunctivae normal, anicteric sclerae ENMT:� external ear and nose normal, oropharynx dry membranes, +thrush, erythematous beefy red tongue with white patches Neck:� trachea midline, no thyromegaly� normal visual inspection Respiratory:� normal respiratory effort, lungs clear to auscultation, decreased BS at bases, no wheeze, rales, rhonchi.� Normal insp/exp effort, no accessory muscle use Cardiovascular:� RRR, no murmur, no edema� Vessels: no JVD or carotid bruit Chest: normal inspection of chest Abdomen: normal bowel sounds, soft, nontender, no hepatosplenomegaly Musculoskeletal:� no cyanosis or clubbing, extremities motor strength 5/5 Skin:� no rashes, warm and dry� normal turgor Neurologic:� PERRL, EOMI, accommodation nl, no face palsy, no dysarthria� CN's II-XI intact bilaterally and moves all extremities Psychiatric:� A+Ox3, euthymic affect Lymphatic:� no cervical or axillary lymphadenopathy : deferred Principal Diagnosis covid pneumonia transaminitis likely related to covid-19 infection-resolved thrush-resolved tobacco abuse Discharge Exam CONSTITUTIONAL: WNWD, vitals as above, generally well-appearing, NAD EYES: normal conjunctivae, no scleral icterus ENT: external ear and nose normal,MMM NECK: trachea midline RESPIRATORY: clear to auscultation bilaterally, no crackles, rales or wheezes, normal respiratory effort CARDIOVASCULAR: regular rate and rhythm, S1 and 2 heard without murmurs, gallops or rubs, no JVD, no peripheral edema CHEST: inspection of chest was normal GASTROINTESTINAL: soft, nontender, ND, no guarding MUSCULOSKELETAL: strength 5/5 throughout, head is normocephalic and atraumatic SKIN: warm and dry NEUROLOGIC: CN 2-12 grossly intact, no sensory deficit, normal cognition, normal speech, no tremor PSYCHIATRIC: alert cooperative and oriented to person, place and time. Euthymic mood, makes good eye contact, language grossly intact, recent and remote memory grossly intact. Discharge Data Allergies Allergy/AdvReac Type Severity Reaction Status Date / Time ciprofloxacin Allergy Severe Itching Unverified 03/13/21 13:13 sulfamethoxazole AdvReac Severe CAUSED Verified 07/18/20 01:19 [From Bactrim] KIDNEY PROBLEMS trimethoprim [From Bactrim] AdvReac Severe CAUSED Verified 07/18/20 01:19 KIDNEY PROBLEMS adhesive AdvReac Mild BLISTERS Verified 07/18/20 01:19 Consultations 03/13/21 14:12 ED Decision to Admit Stat Ordered Studies Laboratory Results WBC 20.91 K/uL (4.8-10.8) H 03/25/21 06:11 RBC 4.91 M/uL (4.2-5.4) 03/25/21 06:11 Hgb 14.9 g/dL (12.0-16.0) 03/25/21 06:11 Hct 44.4 % (37-47) 03/25/21 06:11 MCV 90.4 fL (80-100) 03/25/21 06:11 MCH 30.3 pg (25-34) 03/25/21 06:11 MCHC 33.6 g/dL (32-36) 03/25/21 06:11 RDW Std Deviation 48.3 fL (36.4-46.3) H 03/25/21 06:11 RDW Coeff of Cindy 14.5 % (11.5-14.5) 03/25/21 06:11 Plt Count 318 K/uL (130-400) 03/25/21 06:11 MPV 10.7 fL (7.4-10.4) H 03/25/21 06:11 Immature Gran % (Auto) 0.8 % 03/16/21 05:43 Neut % (Auto) 81.3 % 03/16/21 05:43 Lymph % (Auto) 11.6 % 03/16/21 05:43 [place] % (Auto) 6.1 % 03/16/21 05:43 Eos % (Auto) 0.0 % 03/16/21 05:43 Baso % (Auto) 0.2 % 03/16/21 05:43 Neut # (Auto) 7.71 K/uL (1.4-6.5) H 03/16/21 05:43 Lymph # (Auto) 1.10 K/uL (1.2-3.4) L 03/16/21 05:43 [place] # (Auto) 0.58 K/uL (0.11-0.59) 03/16/21 05:43 Eos # (Auto) 0.00 K/uL (0-0.5) 03/16/21 05:43 Baso # (Auto) 0.02 K/uL (0-0.2) 03/16/21 05:43 Immature Gran # (Auto) 0.08 K/uL (0.00-0.02) H 03/16/21 05:43 Neutrophils % (Manual) 85.3 % 03/25/21 06:11 Lymphocytes % (Manual) 10.4 % 03/25/21 06:11 Monocytes % (Manual) 4.3 % 03/25/21 06:11 Neutrophils # (Manual) 17.84 K/uL (1.4-6.5) H 03/25/21 06:11 Total Absolute Neuts 17.84 K/uL (1.4-6.5) H 03/25/21 06:11 Lymphocytes # (Manual) 2.17 K/uL (1.2-3.4) 03/25/21 06:11 Total Abs Lymphocytes 2.17 K/uL (1.2-3.4) 03/25/21 06:11 Monocytes # (Manual) 0.90 K/uL (0.11-0.59) H 03/25/21 06:11 PT 16.4 Seconds (9.0-12.0) H 03/26/21 06:01 INR 1.7 (0.9-1.1) H 03/26/21 06:01 Sodium 133 mmol/L (136-145) L 03/25/21 06:11 Potassium 3.6 mmol/L (3.5-5.1) D 03/25/21 06:11 Chloride 97 mmol/L (98-107) L 03/25/21 06:11 Carbon Dioxide 29 mmol/L (21-32) 03/25/21 06:11 Anion Gap 7.0 (3-11) 03/25/21 06:11 BUN 28 mg/dl (7-18) H 03/25/21 06:11 Creatinine 0.84 mg/dl (0.6-1.2) 03/25/21 06:11 Est Cr Clr Drug Dosing 58.9 ml/min 03/25/21 06:11 Est GFR ( Amer) 79.9 ml/min 03/25/21 06:11 Est GFR (Non-Af Amer) 69.0 ml/min 03/25/21 06:11 BUN/Creatinine Ratio 33.2 (10-20) H 03/25/21 06:11 Glucose 113 mg/dl (70-99) H 03/25/21 06:11 POC Glucose 197 mg/dl (70-99) H 03/15/21 16:36 Lactate 1.7 mmol/L (0.4-2.0) 03/13/21 14:01 Calcium 8.8 mg/dl (8.5-10.1) 03/25/21 06:11 Phosphorus 3.3 mg/dl (2.5-4.9) 03/20/21 06:04 Magnesium 2.1 mg/dl (1.8-2.4) 03/22/21 05:44 Total Bilirubin 1.0 mg/dl (0.2-1) 03/25/21 06:11 AST 37 U/L (15-37) 03/25/21 06:11 ALT 75 (12-78) 03/25/21 06:11 Alkaline Phosphatase 107 U/L (45-117) 03/25/21 06:11 Total Creatine Kinase 283 U/L (26-192) H 03/13/21 14:01 Troponin I < 0.015 ng/ml (0-0.045) 03/13/21 14:01 C-Reactive Protein 9.63 mg/dl (0-0.29) H 03/25/21 06:11 Total Protein 6.2 gm/dl (6.4-8.2) L 03/25/21 06:11 Albumin 2.1 gm/dl (3.4-5.0) L 03/25/21 06:11 Globulin 4.1 gm/dl (2.5-4.0) H 03/25/21 06:11 Albumin/Globulin Ratio 0.5 (0.9-2) L 03/25/21 06:11 Procalcitonin 0.37 ng/ml (0-0.5) 03/25/21 06:11 TSH 1.190 uIu/ml (0.300-4.500) 03/13/21 14:01 Specimen Hemolysis 03/15/21 06:24 Urine Color Dark Yellow 03/13/21 15:55 Urine Appearance Cloudy (Clear) A 03/13/21 15:55 Urine pH 5.5 (4.5-7.5) 03/13/21 15:55 Ur Specific Delta 1.023 (1.000-1.030) 03/13/21 15:55 Urine Protein 1+ (Negative) H 03/13/21 15:55 Urine Glucose (UA) Negative (Negative) 03/13/21 15:55 Urine Ketones 2+ (Negative) H 03/13/21 15:55 Urine Blood Negative (Negative) 03/13/21 15:55 Urine Nitrite Positive (Negative) A 03/13/21 15:55 Urine Bilirubin Negative (Negative) 03/13/21 15:55 Urine Urobilinogen Positive (Negative) H 03/13/21 15:55 Ur Leukocyte Esterase Trace (Negative) H 03/13/21 15:55 Urine WBC (Auto) 5-10 /hpf (0-5) H 03/13/21 15:55 Urine RBC (Auto) 0-4 /hpf (0-4) 03/13/21 15:55 U Hyaline Cast (Auto) 0 /lpf (0-5) 03/13/21 15:55 U Epithel Cells (Auto) >30 /lpf (0-5) H 03/13/21 15:55 Urine Bacteria (Auto) 4+ (Negative) H 03/13/21 15:55 WBC Casts 5-10 /lpf (0) H 03/13/21 15:55 SARS-CoV-2 (PCR) POSITIVE (Negative) A* 03/13/21 12:50 Hepatitis A IgM Ab NON-REACTIVE (NON-REACTIVE) 03/14/21 10:50 Hep Bs Antigen Neg (Neg) 03/14/21 10:50 Hep B Core IgM Ab NON-REACTIVE (NON-REACTIVE) 03/14/21 10:50 Hepatitis C Antibody Neg (Neg) 03/14/21 10:50 Influenza Type A (PCR) Negative (Neg) 03/13/21 12:50 Influenza Type B (PCR) Negative (Neg) 03/13/21 12:50 RSV (RT-PCR) Negative (Neg) 03/13/21 12:50 Impressions Chest X-Ray 03/21/21 13:54 XR chest 1V portable CLINICAL HISTORY: r/o pneumothorax TECHNIQUE: Single frontal radiograph of the chest was obtained. Comparison: Comparison is made to chest one view 03/21/2021 FINDINGS: No lines and tubes are seen. The cardiomediastinal silhouette is normal. There is prominence and cephalization of the vasculature with Oscar B lines seen. There is suggestion of ill-defined airspace opacities. No evidence of pleural effusion or pneumothorax. IMPRESSION: Moderate pulmonary edema with ill-defined airspace opacities compatible with history of pneumonia. No pneumothorax is seen. ACT 112: Negative or not required by law. Electronically signed by: Nithin Tripp M.D. 03/21/2021 2:47 PM Hospital Course (1) Hypoxia: (2) Pneumonia due to COVID-19 virus: (3) COPD (chronic obstructive pulmonary disease): (4) Transaminitis: (5) Thrush: (6) Atrial fibrillation: (7) Tachy-silvestre syndrome: (8) Hypertension: (9) Tobacco abuse: (10) CKD (chronic kidney disease) stage 3, GFR 30-59 ml/min: (11) Acute UTI: Patient is a 75 yr female who has known past medical history of atrial fibrillation anticoagulated on warfarin, tachy-silvestre syndrome status post PPM, chronic diastolic CHF, COPD, chronic tobacco abuse here, aortic valve stenosis, CKD stage III who presents to ED 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 Pneumonia due to COVID-19 #. Hypoxia #. H/O COPD Unvaccinated , started on dexamethasone, remdesivir not offered in setting of elevated transaminases. No acute COPD exacerbation. Lasix was given intermittently throughout her stay to keep an overall net negative fluid balance. A two step test was performed at time of discharged and she required oxygen going home (2LPM with ambulation). #. Transaminitis Likely 2/2 Covid Hepatitis panel negative LFTs normalized prior to discharge. #. Thrush Continue clotrimazole troch #. Urinary tract infection Urine culture growing E coli Completed course of Rocephin Total Time Total Time Spent Total Time Spent (In Minutes): 60 Discharge Plan Discharge Items Patient Disposition: Home - Home Health Services Reason For Visit: COVID PNA Discharge Diagnosis: covid pneumonia transaminitis likely related to covid-19 infection-resolved thrush-resolved tobacco abuse Condition on Discharge: Good Activity: Resume your previous activity Non-emergency contact: Primary Care Provider Call non-emergency contact if: you have any medication questions and your symptoms worsen Follow-up/Referrals: Fly Esteves MD [Primary Care Provider] - (Date & Time 04/01/2021 11:20 AM Provider Fly Esteves MD Department Family Medicine [facility] PLEASE NOTE THAT THIS IS A TELEHEALTH VIDEO APPOINTMENT. PLEASE FOLLOW THE INSTRUCTIONS PROVIDED IN YOUR EMAIL. IF YOU HAVE ANY QUESTIONS REGARDING THIS APPOINTMENT, PLEASE CALL ) Diet: Low Sodium (2gm) Addtl Attending Provider Instructions: Please take all medications as instructed on discharge list below. Please follow-up with your anticoagulation clinic within the next week for an INR check after hospital stay. Please follow-up with your primary care physician as instructed above to ensure you are continuing to do well after returning home. You are being sent home with home health for PT, OT and nursing check of your vitals signs and medications. You are also being sent home with oxygen which should be used with any exertion at 2LPM. A repeat chest xray is recommended in 4-6 weeks to ensure complete resolution of pneumonia. It was a pleasure taking care of you! Please call if you have any questions or problems. You can reach a [facility] hospitalist on duty at [facility] 24 hours a day by calling [phone]. Take care of yourself. Ivania Meza, [facility] Hospitalist Pending Studies at Discharge: No Stand-Alone Forms: My [facility], Smoking Cessation Medications and DC Order Prescriptions: New (DME) Oxygen Home Liters Per Minute See Rx Instructions .Route Qty: 1 RF: 0 Continued warfarin [Jantoven] 2 mg Tablet See Rx Instructions .ROUTE .COMPLEX RF: 0 amiodarone 200 mg tablet 200 mg PO HS RF: 0 famotidine 20 mg tablet 20 mg PO QAM RF: 0 levothyroxine 50 mcg tablet 50 mcg PO QAM RF: 0 omeprazole 20 mg capsule,delayed release(DR/EC) 20 mg PO BID RF: 0 furosemide 20 mg tablet 20 mg PO QAM PRN (Reason: Edema) RF: 0 metoprolol succinate 25 mg tablet extended release 24 hr 25 mg PO HS RF: 0 albuterol sulfate [Ventolin HFA] 90 mcg/actuation HFA aerosol inhaler 1 - 2 puff INHALATION DIRECTED PRN (Reason: Shortness Of Breath Or Wheezing) RF: 0 fluticasone propionate 50 mcg/actuation [place],Suspension 2 spray INTRANASAL DAILY PRN (Reason: Nasal Congestion) RF: 0 Anoro Ellipta 62.5-25 mcg/actuation blister with device 1 inh INHALATION QAM RF: 0 cyanocobalamin (vitamin B-12) [Vitamin B-12] 500 mcg Tablet 500 mcg PO QAM RF: 0 Discontinued amlodipine 2.5 mg tablet 2.5 mg PO QAM RF: 0 Discharge Orders: Discharge Order (Routine); Ordered 03/26/21 Ordered By: Ivania Arthur/Other Patient Handouts: Using an Oxygen Tank at Home Admission Data Admit Date/Time: 03/13/21 15:06 Attending Provider: Ivania Meza Admit Provider: Taina Ramirez I. Primary Care Provider: Fly Esteves Other Providers: Tiana Ramirez I. ; Cindy Maldonado Other Interventions: Discharge Summary Assessment (RN) Last Done: 03/26/21 15:54
== END 2021-03-26 16:53 | disposition home health service (06) | DRG 177 ==
LOC: ED 11:47 → SUATTDRO 15:06 → EDINP 15:06 → 2W 18:40 → 3W 03-22 16:45
DX: J12.82 Pneumonia due to coronavirus disease 2019; Z95.0 Presence of cardiac pacemaker; R74.01 Elevation of levels of liver transaminase levels; B37.0 Candidal stomatitis; Z79.01 Long term (current) use of anticoagulants; E86.0 Dehydration; I35.0 Nonrheumatic aortic (valve) stenosis; F17.210 Nicotine dependence, cigarettes, uncomplicated; I13.0 Hypertensive heart and chronic kidney disease with heart failure and stage 1 through stage 4 chronic kidney disease, or unspecified chronic kidney disease; I50.32 Chronic diastolic (congestive) heart failure; Z79.890 Hormone replacement therapy; U07.1 COVID-19; B96.20 Unspecified Escherichia coli [E. coli] as the cause of diseases classified elsewhere; R09.02 Hypoxemia; Z88.2 Allergy status to sulfonamides; N39.0 Urinary tract infection, site not specified; N18.30 Chronic kidney disease, stage 3 unspecified; Z91.048 Other nonmedicinal substance allergy status; I48.91 Unspecified atrial fibrillation; J44.0 Chronic obstructive pulmonary disease with (acute) lower respiratory infection; Z88.1 Allergy status to other antibiotic agents; Z86.79 Personal history of other diseases of the circulatory system; Z79.899 Other long term (current) drug therapy

== ENCOUNTER 2021-04-14 14:54 | Inpatient (IN) ==
[2021-04-14] MEDS ORDERED: cefTRIAXone SODIUM 1,000 MG/50 ML BAG IV STA (15:13)
--- NOTE | 2021-04-14 15:20 | Emergency Department Note ---
History of Present Illness General Chief complaint: Shortness of Breath/Dyspnea Stated complaint: SOB Time Seen by Provider: 04/14/21 15:01 History of Present Illness Maximum Pain Intensity: 7 75-year-old female presents with chief complaint of shortness of breath. She states she was admitted the hospital in early March for Covid pneumonia. She was discharged on 2 L of oxygen. She states that she has a 30 foot hose for her oxygen cannula and when she gets up and moves about, she feels short of breath and her pulse ox drops. She states that she was told to come in to have this evaluated. She states that this has been going on since she was discharged. She also reports pain in the left leg where she had a bruise. Is becoming increasingly red and tender. This is been going on for several days. Home Medications Medication Instructions Recorded Confirmed Type warfarin 2 mg tablet (Jantoven) See Rx Instructions .ROUTE .COMPLEX 12/12/17 04/14/21 History albuterol sulfate 90 mcg/actuation 1 - 2 puff INHALATION DIRECTED 07/13/20 04/14/21 History aerosol inhaler (Ventolin HFA) PRN amiodarone 200 mg tablet 200 mg PO HS 07/13/20 04/14/21 History cyanocobalamin (vitamin B-12) 500 500 mcg PO QAM 07/13/20 04/14/21 History mcg tablet (Vitamin B-12) famotidine 20 mg tablet 20 mg PO QAM 07/13/20 04/14/21 History fluticasone propionate 50 2 spray INTRANASAL DAILY PRN 07/13/20 04/14/21 History mcg/actuation nasal spray,suspension furosemide 20 mg tablet 20 mg PO QAM PRN 07/13/20 04/14/21 History levothyroxine 50 mcg tablet 50 mcg PO QAM 07/13/20 04/14/21 History metoprolol succinate 25 mg 25 mg PO HS 07/13/20 04/14/21 History tablet,extended release 24 hr umeclidinium 62.5 mcg-vilanterol 1 inh INHALATION QAM 07/13/20 04/14/21 History 25 mcg/actuation powdr for inhalation (Anoro Ellipta) Oxygen Home #1 ea 03/26/21 04/14/21 Rx potassium chloride 10 mEq 10 meq PO DAILY 04/14/21 04/14/21 History tablet,extended release(part/cryst) Allergies Allergy/AdvReac Type Severity Reaction Status Date / Time ciprofloxacin Allergy Severe Itching Unverified 04/14/21 16:23 sulfamethoxazole AdvReac Severe CAUSED Verified 04/14/21 16:23 [From Bactrim] KIDNEY PROBLEMS trimethoprim [From Bactrim] AdvReac Severe CAUSED Verified 04/14/21 16:23 KIDNEY PROBLEMS adhesive AdvReac Mild BLISTERS Verified 04/14/21 16:23 Past Med/Surg History Medical History Abdominal aneurysm Acute left lumbar radiculopathy Ambulatory dysfunction Anticoagulated on warfarin Atrial fibrillation CKD (chronic kidney disease) stage 3, GFR 30-59 ml/min Colonic diverticular abscess COPD (chronic obstructive pulmonary disease) Diverticulosis GERD (gastroesophageal reflux disease) Hypertension Intractable low back pain Tachy-silvestre syndrome Tobacco abuse Surgical History H/O tubal ligation History of cardiac pacemaker "10/04/17 Dr. De" History of colonoscopy with polypectomy History of lumpectomy of left breast History of partial colectomy "secondary to diverticulitis" History of tubal ligation Family History Mother Colorectal cancer Myocardial infarction Diabetes Father Diabetes Sister Skin cancer Social History Smoking Status: Former smoker Tobacco Type: Cigarettes Years Smoked: 60; Cigarettes Per Day: 10; Second Hand Exposure: Yes; Hx Alcohol Use: No Hx Substance Use: No Preferred Language: Syriac Communication Ability: Effective Sample Patternmaker Required: Yes Beliefs That Will Affect Care: None marital status: Current Living Situation: Family Current Living Situation Comment: Grandson and Son Feels Safe at Home: Yes Assistive Devices: Oxygen - Continuous Review of Systems A total of 10 systems reviewed and were otherwise negative Physical Exam Vital Signs Vital Signs - 24 hr 04/14/21 14:59 04/14/21 15:07 04/14/21 15:10 Temperature 37.3 C 37.3 C Temperature Source Oral Oral Pulse Rate 73 68 Pulse Rate [Apical] 81 68 Pulse Rhythm Regular Pulse Rhythm [Apical] Regular Pulse Strength [Apical] Normal Respiratory Rate 21 21 20 Respiratory Effort / Characteristics Non-Labored Spontaneous Non-Labored Spontaneous Non-Labored Respiratory Depth Normal Normal Normal Blood Pressure 154/92 H Blood Pressure [Left Arm] 154/92 H Blood Pressure Mean 112 Blood Pressure Mean [Left Arm] 112 Blood Pressure Position [Left Arm] Pulse Oximetry 97 93 97 Oxygen Delivery Method Nasal Cannula Nasal Cannula Nasal Cannula Oxygen Flow Rate 2 2 4 Sepsis Recent Fever Within 48 Hours No Sepsis New/Unexplained Change in Mental Status No Sepsis Action Taken by Nursing No Action Required 04/14/21 15:13 04/14/21 17:00 Temperature Temperature Source Pulse Rate 60 Pulse Rate [Apical] 70 Pulse Rhythm Pulse Rhythm [Apical] Regular Pulse Strength [Apical] Normal Respiratory Rate 20 Respiratory Effort / Characteristics Non-Labored Respiratory Depth Normal Blood Pressure Blood Pressure [Left Arm] 133/76 Blood Pressure Mean Blood Pressure Mean [Left Arm] 95 Blood Pressure Position [Left Arm] Lying Pulse Oximetry 97 95 Oxygen Delivery Method Nasal Cannula Nasal Cannula Oxygen Flow Rate 4 4 Sepsis Recent Fever Within 48 Hours Sepsis New/Unexplained Change in Mental Status Sepsis Action Taken by Nursing CONSTITUTIONAL/VITAL SIGNS: Reviewed / noted above. GENERAL: Non-toxic in appearance. INTEGUMENTARY: Warm, dry, and [place]. HEAD: Normocephalic. EYES: without scleral icterus or trauma. ENT/OROPHARYNX: clear and moist. LYMPHADENOPATHY/NECK: Is supple without lymphadenopathy or meningismus. RESPIRATORY: Clear to auscultation bilaterally. No increased work of breathing. CARDIOVASCULAR: Regular rate and rhythm. GI/ABDOMEN: Soft and nontender. No organomegaly or pulsatile mass. EXTREMITIES: Warm and well perfused. Contusion with surrounding erythema the left lower tibial region with some increased warmth suggestive of possible infection. BACK: No CVA tenderness. NEUROLOGICAL: Intact without focal deficits. PSYCHIATRIC: normal affect. MUSCULOSKELETAL: Normally developed with good muscle tone. TRIAGE NURSING DOCUMENTATION REVIEWED. Course Administered Medications Discontinued Medications Furosemide (Furosemide 40 Mg/4 Ml Vial) 40 mg IV ONE ONE Stop: 04/14/21 17:40 Last Admin: 04/14/21 17:44 Dose: 40 mg Documented by: [id number] Ceftriaxone Sodium (Rocephin) 1,000 mg in 50 mls @ 100 mls/hr IV NOW STA Stop: 04/14/21 15:42 Last Infusion: 04/14/21 16:25 Dose: 0 mls/hr Documented by: [id number] Admin: 04/14/21 15:50 Dose: 100 mls/hr Documented by: [id number] Phytonadione (Phytonadione 5 Mg Tab) 5 mg PO NOW STA Stop: 04/14/21 16:23 Last Admin: 04/14/21 16:26 Dose: 5 mg Documented by: [id number] Medical Decision Making Differential Diagnosis Differential includes acute coronary syndrome, myocardial infarction, CVA, TIA, anemia, infection, pneumonia, UTI, pyelonephritis, poor nutrition, dehydration, electrolyte disturbance,hypoglycemia. Medical Records Attestation: I reviewed the patient's medical records. Home Medications Current Medication List: was personally reviewed by me Laboratory Data Attestation: I reviewed the patient's lab results. Result diagrams: 04/14/21 16:16 04/14/21 15:34 Lab Results 04/14/21 04/14/21 04/14/21 Range/Units 15:34 15:34 15:34 WBC Cancelled RBC Cancelled Hgb Cancelled Hct Cancelled MCV Cancelled MCH Cancelled MCHC Cancelled RDW Std Deviation Cancelled RDW Coeff of Cindy Cancelled Plt Count Cancelled MPV Cancelled Immature Gran % (Auto) Cancelled Neut % (Auto) Cancelled Lymph % (Auto) Cancelled [place] % (Auto) Cancelled Eos % (Auto) Cancelled Baso % (Auto) Cancelled Neut # (Auto) Cancelled Lymph # (Auto) Cancelled [place] # (Auto) Cancelled Eos # (Auto) Cancelled Baso # (Auto) Cancelled Immature Gran # (Auto) Cancelled Absolute Nucleated RBC Cancelled Nucleated RBC % (auto) Cancelled Neutrophils % (Manual) Cancelled Band Neutrophils % Cancelled Lymphocytes % (Manual) Cancelled Prolymphocyte % Cancelled Reactive Lymphs % (Man) Cancelled Monocytes % (Manual) Cancelled Eosinophils % (Manual) Cancelled Basophils % (Manual) Cancelled Metamyelocytes % (Man) Cancelled Myelocytes % (Man) Cancelled Promyelocytes % (Man) Cancelled Blast Cells % (Manual) Cancelled Plasma Cell % (Manual) Cancelled Other Cells % Cancelled Nucleated RBC % Cancelled Neutrophils # (Manual) Cancelled Band Neutrophils # Cancelled Total Absolute Neuts Cancelled Lymphocytes # (Manual) Cancelled Prolymphocyte # Cancelled Reactive Lymphs # Cancelled Total Abs Lymphocytes Cancelled Monocytes # (Manual) Cancelled Eosinophils # (Manual) Cancelled Basophils # (Manual) Cancelled Metamyelocytes # (Man) Cancelled Myelocytes # (Manual) Cancelled Promyelocytes # (Man) Cancelled Blast Cells # (Man) Cancelled Plasma Cell # (Manual) Cancelled Other Cells # Cancelled Nucleated RBCs # (Man) Cancelled Hypersegmented Neuts Cancelled Hyposegmented Neuts Cancelled Hypogranular Neuts Cancelled Large Granular Lymphs Cancelled # Lrg Granular Lymphs Cancelled Hairy Cells Cancelled Smudge Cells Cancelled Toxic Granulation Cancelled Toxic Vacuolation Cancelled Dohle Bodies Cancelled Brian Rods Cancelled Platelet Estimate Cancelled Hypogranular Platelets Cancelled Clumped Platelets Cancelled Giant Platelets Cancelled Platelet Satelliting Cancelled RBC Morphology Cancelled Polychromasia Cancelled Hypochromasia Cancelled Poikilocytosis Cancelled Basophilic Stippling Cancelled Anisocytosis Cancelled Microcytosis Cancelled Macrocytosis Cancelled Spherocytes Cancelled Pappenheimer Bodies Cancelled Sickle Cells Cancelled Target Cells Cancelled Tear Drop Cells Cancelled Ovalocytes Cancelled Stomatocytes Cancelled Gomez-Centre Hall Bodies Cancelled Echinocytes Cancelled Acanthocytes (Spur) Cancelled Rouleaux Cancelled RBC Agglutinates Cancelled Schistocytes Cancelled RBC Morph Comment Cancelled Sezary Cell Cancelled PT 72.3 H (9.0-12.0) Seconds INR 8.5 H* (0.9-1.1) Sodium 139 (136-145) mmol/L Potassium 3.8 (3.5-5.1) mmol/L Chloride 105 (98-107) mmol/L Carbon Dioxide 28 (21-32) mmol/L Anion Gap 6.0 (3-11) BUN 9 (7-18) mg/dl Creatinine 0.61 (0.6-1.2) mg/dl Est Cr Clr Drug Dosing 81.8 ml/min Est GFR ( Amer) 104.2 ml/min Est GFR (Non-Af Amer) 89.9 ml/min BUN/Creatinine Ratio 14.2 (10-20) Glucose 93 (70-99) mg/dl Calcium 8.3 L (8.5-10.1) mg/dl Total Bilirubin 0.5 (0.2-1) mg/dl AST 20 (15-37) U/L ALT 15 (12-78) Alkaline Phosphatase 155 H D (45-117) U/L Troponin I < 0.015 (0-0.045) ng/ml NT-Pro-B Natriuret Pep (0-900) pg/ml Total Protein 5.9 L (6.4-8.2) gm/dl Albumin 1.9 L (3.4-5.0) gm/dl Globulin 4.0 (2.5-4.0) gm/dl Albumin/Globulin Ratio 0.5 L (0.9-2) SARS-CoV-2 (PCR) (Negative) Influenza Type A (PCR) (Neg) Influenza Type B (PCR) (Neg) RSV (RT-PCR) (Neg) 04/14/21 04/14/21 04/14/21 Range/Units 15:34 16:16 16:34 WBC 12.20 H RBC 3.80 L Hgb 11.3 L Hct 35.2 L MCV 92.6 MCH 29.7 MCHC 32.1 RDW Std Deviation 52.4 H RDW Coeff of Cindy 15.3 H Plt Count 425 H MPV 9.7 Immature Gran % (Auto) 0.2 Neut % (Auto) 77.1 Lymph % (Auto) 14.0 [place] % (Auto) 7.5 Eos % (Auto) 1.0 Baso % (Auto) 0.2 Neut # (Auto) 9.40 H Lymph # (Auto) 1.71 [place] # (Auto) 0.91 H Eos # (Auto) 0.12 Baso # (Auto) 0.03 Immature Gran # (Auto) 0.03 H Absolute Nucleated RBC Nucleated RBC % (auto) Neutrophils % (Manual) Band Neutrophils % Lymphocytes % (Manual) Prolymphocyte % Reactive Lymphs % (Man) Monocytes % (Manual) Eosinophils % (Manual) Basophils % (Manual) Metamyelocytes % (Man) Myelocytes % (Man) Promyelocytes % (Man) Blast Cells % (Manual) Plasma Cell % (Manual) Other Cells % Nucleated RBC % Neutrophils # (Manual) Band Neutrophils # Total Absolute Neuts Lymphocytes # (Manual) Prolymphocyte # Reactive Lymphs # Total Abs Lymphocytes Monocytes # (Manual) Eosinophils # (Manual) Basophils # (Manual) Metamyelocytes # (Man) Myelocytes # (Manual) Promyelocytes # (Man) Blast Cells # (Man) Plasma Cell # (Manual) Other Cells # Nucleated RBCs # (Man) Hypersegmented Neuts Hyposegmented Neuts Hypogranular Neuts Large Granular Lymphs # Lrg Granular Lymphs Hairy Cells Smudge Cells Toxic Granulation Toxic Vacuolation Dohle Bodies Brian Rods Platelet Estimate Hypogranular Platelets Clumped Platelets Giant Platelets Platelet Satelliting RBC Morphology Polychromasia Hypochromasia Poikilocytosis Basophilic Stippling Anisocytosis Microcytosis Macrocytosis Spherocytes Pappenheimer Bodies Sickle Cells Target Cells Tear Drop Cells Ovalocytes Stomatocytes Gomez-Centre Hall Bodies Echinocytes Acanthocytes (Spur) Rouleaux RBC Agglutinates Schistocytes RBC Morph Comment Sezary Cell PT (9.0-12.0) Seconds INR (0.9-1.1) Sodium (136-145) mmol/L Potassium (3.5-5.1) mmol/L Chloride (98-107) mmol/L Carbon Dioxide (21-32) mmol/L Anion Gap (3-11) BUN (7-18) mg/dl Creatinine (0.6-1.2) mg/dl Est Cr Clr Drug Dosing ml/min Est GFR ( Amer) ml/min Est GFR (Non-Af Amer) ml/min BUN/Creatinine Ratio (10-20) Glucose (70-99) mg/dl Calcium (8.5-10.1) mg/dl Total Bilirubin (0.2-1) mg/dl AST (15-37) U/L ALT (12-78) Alkaline Phosphatase (45-117) U/L Troponin I (0-0.045) ng/ml NT-Pro-B Natriuret Pep 1672 H (0-900) pg/ml Total Protein (6.4-8.2) gm/dl Albumin (3.4-5.0) gm/dl Globulin (2.5-4.0) gm/dl Albumin/Globulin Ratio (0.9-2) SARS-CoV-2 (PCR) NEGATIVE (Negative) Influenza Type A (PCR) Negative (Neg) Influenza Type B (PCR) Negative (Neg) RSV (RT-PCR) Negative (Neg) Imaging Data Radiologist's Impression: Chest X-Ray 04/14/21 15:13 SINGLE VIEW CHEST CLINICAL HISTORY: Generalized weakness. FINDINGS: An AP, portable, upright chest radiograph is compared to study dated 03/21/2021. Correlation is made with chest CT dated 09/27/2017. The heart is enlarged. Findings of chronic interstitial lung disease are similar to previous. Extensive multifocal airspace opacities are seen throughout both lungs. This has significantly increased as compared to 03/21/2021. Small pleural effusions are noted. No pneumothorax is seen. The skeletal structures are osteopenic. The bony thorax is grossly intact. IMPRESSION: 1. Multifocal airspace opacities are seen throughout both lungs, and this has significantly increased as compared to 03/21/2021. This could represent pulmonary edema and/or multifocal pneumonia. Clinical correlation will be required and radiographic follow-up to resolution is recommended. 2. Cardiomegaly and cardiac pacemaker. 3. Small pleural effusions. ACT 112: Negative or not required by law. Electronically signed by: Mayank aClvin M.D. 04/14/2021 3:52 PM ECG Data Attestation: I personally reviewed and interpreted this ECG as follows: Additional Comments: Twelve-lead EKG: Per my interpretation shows a paced atrial rhythm at a rate of 72. No ST elevation. No PVCs. Normal QTC MDM Narrative Patient presents with some increased weakness and shortness of breath pain in her left leg where she had a contusion. This appears to be cellulitic at this time. On 2 L here she is saturating 93% and states that her breathing feels comfortable. She has been having exertional dyspnea and decreased oxygen saturations since discharge. This is no different than her baseline. Vital signs are otherwise stable. She is in no respiratory distress. Previous smoker. The patient's chest x-ray today and her BNP suggest congestive heart failure. Multifocal pneumonia could appear similar. Her troponin was negative. Metabolic panel was unremarkable. INR is 8.5. She was given oral vitamin K 5 mg for this. EKG shows a paced atrial rhythm. Covid and flu swab were negative. The patient was treated with IV Rocephin both for possible pneumonia and left leg cellulitis. She was also given IV Zithromax. She was given Lasix 40 mg IV. She will be seen by the hospitalist for further inpatient evaluation and care. Impression & Plan Cellulitis of left leg, Chronic dyspnea, CHF (congestive heart failure), Bilateral pneumonia, Elevated INR Discharge Plan Visit Data Chief Complaint: Shortness of Breath/Dyspnea Stated Complaint: SOB ED Provider: Jose A Penn Discharge Problem: Cellulitis of left leg, Chronic dyspnea, CHF (congestive heart failure), Bilateral pneumonia, Elevated INR Patient Disposition: Being Evaluated by Hospitalist Forms Stand Alone Forms: My [facility], Virtual Emergency Department, Impor tant Visit Information Prescriptions Prescriptions: No Action warfarin [Jantoven] 2 mg Tablet See Rx Instructions .ROUTE .COMPLEX RF: 0 amiodarone 200 mg tablet 200 mg PO HS RF: 0 famotidine 20 mg tablet 20 mg PO QAM RF: 0 levothyroxine 50 mcg tablet 50 mcg PO QAM RF: 0 furosemide 20 mg tablet 20 mg PO QAM PRN (Reason: Edema) RF: 0 metoprolol succinate 25 mg tablet extended release 24 hr 25 mg PO HS RF: 0 albuterol sulfate [Ventolin HFA] 90 mcg/actuation HFA aerosol inhaler 1 - 2 puff INHALATION DIRECTED PRN (Reason: Shortness Of Breath Or Wheezing) RF: 0 fluticasone propionate 50 mcg/actuation [place],Suspension 2 spray INTRANASAL DAILY PRN (Reason: Nasal Congestion) RF: 0 Anoro Ellipta 62.5-25 mcg/actuation blister with device 1 inh INHALATION QAM RF: 0 cyanocobalamin (vitamin B-12) [Vitamin B-12] 500 mcg Tablet 500 mcg PO QAM RF: 0 potassium chloride 10 mEq tablet,ER particles/crystals 10 meq PO DAILY RF: 0 (DME) Oxygen Home Liters Per Minute See Rx Instructions .Route Qty: 1 RF: 0 Referrals Referrals: Fly Esteves MD [Primary Care Provider] -
--- NOTE | 2021-04-14 15:53 | XRay Report ---
SINGLE VIEW CHEST CLINICAL HISTORY: Generalized weakness. FINDINGS: An AP, portable, upright chest radiograph is compared to study dated 03/21/2021. Correlatio n is made with chest CT dated 09/27/2017. The heart is enlarged. Findings of chronic interstitial lung disease are similar to previous. Extensive multifocal airspace opacities are seen throughout both cinda ngs. This has significantly increased as compared to 03/21/2021. Small pleural effusions are noted. N o pneumothorax is seen. The skeletal structures are osteopenic. The bony thorax is grossly intact. IMPRESSION: 1. Multifocal airspace opacities are seen throughout both lungs, and this has significantly increased as compared to 03/21/2021. This could represent pulmonary edema and/or multifocal pneumonia. Clinica l correlation will be required and radiographic follow-up to resolution is recommended. 2. Cardiomegaly and cardiac pacemaker. 3. Small pleural effusions. ACT 112: Negative or not required by law. Electronically signed by: Mayank Calvin M.D. 04/14/2021 3:52 PM
[2021-04-14 16:02] LABS: Prothrombin Time 72.3 Seconds (9.0-12.0)
[2021-04-14 16:06] LABS: INR 8.5 (0.9-1.1)
[2021-04-14 16:07] LABS: Alanine Aminotransferase 15 (12-78); Albumin Level 1.9 gm/dl (3.4-5.0); BUN Creatinine Ratio 14.2 (10-20); Blood Urea Nitrogen 9 mg/dl (7-18); Calcium 8.3 mg/dl (8.5-10.1); Carbon Dioxide 28 mmol/L (21-32); Chloride 105 mmol/L (98-107); Creatinine Clr Calc Pharmacy 81.8 ml/min; Est GFR (African American) 104.2 ml/min; Est GFR (Non-African American) 89.9 ml/min; Glucose 93 mg/dl (70-99); Potassium 3.8 mmol/L (3.5-5.1); Sodium 139 mmol/L (136-145)
[2021-04-14 16:10] LABS: Albumin Globulin Ratio 0.5 (0.9-2); Alkaline Phosphatase 155 U/L (45-117); Aspartate Aminotransferase 20 U/L (15-37); Bilirubin,Total 0.5 mg/dl (0.2-1); Total Protein 5.9 gm/dl (6.4-8.2); Troponin I < 0.015 ng/ml (0-0.045)
--- NOTE | 2021-04-14 16:19 | Electrocardiogram Report ---
Test Reason : Blood Pressure : / mmHG Vent. Rate : 072 BPM Atrial Rate : 072 BPM P-R Int : 218 ms QRS Dur : 080 ms QT Int : 434 ms P-R-T Axes : 068 024 054 degrees QTc Int : 475 ms Atrial-paced rhythm with prolonged AV conduction Low voltage QRS Abnormal ECG When compared with ECG of 13-MAR-2021 12:47, No significant change was found Confirmed by Darshan Beaver ([id number]) on 04/14/2021 4:18:49 PM Referred By: REFERRED SELF Confirmed By:Darshan Beaver
[2021-04-14] MEDS ORDERED: PHYTONADIONE 5 MG TAB PO STA (16:22)
[2021-04-14 16:32] LABS: Basophils # (auto) 0.03 K/uL (0-0.2); Basophils % (auto) 0.2 %; Eosinophils # (auto) 0.12 K/uL (0-0.5); Hematocrit (blood only) 35.2 % (37-47); Hemoglobin 11.3 g/dL (12.0-16.0); Immature Granulocytes # (auto) 0.03 K/uL (0.00-0.02); Immature Granulocytes % (auto) 0.2 %; Lymphocytes # (auto) 1.71 K/uL (1.2-3.4); Mean Corpuscular Hemoglobin 29.7 pg (25-34); Mean Corpuscular Hgb Conc 32.1 g/dL (32-36); Mean Corpuscular Volume 92.6 fL (80-100); Mean Platelet Volume 9.7 fL (7.4-10.4); Monocytes # (auto) 0.91 K/uL (0.11-0.59); Monocytes % (auto) 7.5 %; Neutrophils % (auto) 77.1 %; Platelet Count 425 K/uL (130-400); RDW Coefficient of Variation 15.3 % (11.5-14.5); RDW Standard Deviation 52.4 fL (36.4-46.3)
[2021-04-14 17:22] LABS: Influenza A virus by PCR Negative (Neg); Influenza B virus by PCR Negative (Neg); RSV by PCR Negative (Neg); SARS CoV2 RNA(COVID-19) InHosp NEGATIVE (Negative)
[2021-04-14] MEDS ORDERED: FUROSEMIDE 40 MG/4 ML VIAL IV ONE (17:39)
[2021-04-14] MEDS ORDERED: AZITHROMYCIN 500 MG in DEXTROSE 5% 250 ML IV STA (17:49)
--- NOTE | 2021-04-14 19:14 | History & Physical Report ---
Date of Service April 14, 2021 Assessment & Plan (1) Acute on chronic respiratory failure with hypoxia: (2) Acute on chronic diastolic CHF (congestive heart failure): (3) COPD (chronic obstructive pulmonary disease): (4) History of COVID-19: Plan: -Admit to telemetry -Patient presenting from home with reports of worsening shortness of breath, lower extremity edema, weight gain for the past few weeks. Admitted 03/13 through 03/26 for COVID-19 pneumonia. Discharged home on 2 L of oxygen. Seen in the cardiology clinic on 04/08 and was instructed to increase Lasix to 40 mg daily for acute diastolic CHF. Patient admits to some medication noncompliance. Home health noted patient to be hypoxic with ambulation on 2 L of oxygen, was requiring 4 L of oxygen to maintain saturation. -In the ED, CXR shows signs of volume overload and post COVID-19 changes. pro BNP 1600. -Procalcitonin negative -S/p Lasix 40 mg IV in the ED, continue Lasix 40 mg IV twice daily -Echo 08/2020-EF 63%, grade 2 diastolic dysfunction, mild aortic stenosis. Update echo. -Strict I's and O's, low Na+ diet, daily weights -Cardiology consult -Given negative pro calcitonin, will hold on antibiotics for now -Patient does have wheezing on exam however would avoid steroids in the setting of volume overload. Wheezing likely due to volume overload. Reevaluate after diuresis. -Continue home inhalers for COPD, nebs (5) Atrial fibrillation: (6) Tachy-silvestre syndrome: (7) Elevated INR: Plan: -S/p pacemaker -Rhythm controlled on amiodarone, rate controlled on metoprolol -Anticoagulated on Coumadin, INR 8.2. Received vitamin K 5 mg p.o. in ED -Has a small hematoma on left anterior brown however no other signs of bleeding (8) Hematoma of leg: Plan: -Small, contained -Patient reports dropping a frozen chicken on her leg -Monitor closely for expansion given supratherapeutic INR (9) DVT prophylaxis: Plan: -On Coumadin with supratherapeutic INR History of Present Illness Chief Complaint: Shortness of breath Primary Care Provider: Fly Esteves MD 75-year-old female with PMH COPD, chronic hypoxic respiratory failure, chronic diastolic CHF, tachybradycardia syndrome s/p pacemaker, atrial fibrillation anticoagulated on Coumadin, CKD stage III, hypothyroidism, and other problems to below who presents the ED for evaluation of shortness of breath. Patient recently admitted to [facility] 03/13 through 03/26 for COVID-19 pneumonia. Patient was treated with IV dexamethasone, she did not meet criteria for remdesivir due to transaminitis. Patient required 2 L of oxygen at discharge. Patient reports progressive worsening of shortness of breath since being discharged in the hospital. She was seen in the cardiology clinic on 04/08 and patient was instructed to increase her Lasix to 40 mg daily. Patient admits to some noncompliance with taking his medication daily. She has increasing lower extremity edema. She also reports about a 15 pound weight gain since being admitted to the hospital. Patient reports a cough productive for white/clear sputum. Home health noted that patient was hypoxic with ambulation on 2 L and was requiring 4 L of oxygen to maintain saturations. Patient denies fevers and chills. No chest pain or palpitations. Denies lightheadedness, dizziness, diaphoresis, syncopal events. Reports she is slowly gaining her appetite back from COVID-19. Denies abdominal pain, nausea, vomiting, diarrhea. No urinary symptoms. Patient is noted to have a small hematoma on her left anterior brown. Reports that she was removing a frozen chicken from the freezer which fell onto her leg. In the ED, at the time my exam patient is saturating well on 2 L of oxygen at rest. CXR showed signs of volume overload and post COVID-19 changes. proBNP 1600. Initial troponin negative. INR 8.5. Patient was given IV azithromycin, IV ceftriaxone, IV Lasix 40 mg, vitamin K 5 mg p.o. Allergies Allergy/AdvReac Type Severity Reaction Status Date / Time ciprofloxacin Allergy Severe Itching Unverified 04/14/21 16:23 sulfamethoxazole AdvReac Severe CAUSED Verified 04/14/21 16:23 [From Bactrim] KIDNEY PROBLEMS trimethoprim [From Bactrim] AdvReac Severe CAUSED Verified 04/14/21 16:23 KIDNEY PROBLEMS adhesive AdvReac Mild BLISTERS Verified 04/14/21 16:23 Home Medications Medication Instructions Recorded Confirmed Type warfarin 2 mg tablet (Jantoven) See Rx Instructions .ROUTE .COMPLEX 12/12/17 04/14/21 History albuterol sulfate 90 mcg/actuation 1 - 2 puff INHALATION DIRECTED 07/13/20 04/14/21 History aerosol inhaler (Ventolin HFA) PRN amiodarone 200 mg tablet 200 mg PO HS 07/13/20 04/14/21 History cyanocobalamin (vitamin B-12) 500 500 mcg PO QAM 07/13/20 04/14/21 History mcg tablet (Vitamin B-12) famotidine 20 mg tablet 20 mg PO QAM 07/13/20 04/14/21 History fluticasone propionate 50 2 spray INTRANASAL DAILY PRN 07/13/20 04/14/21 History mcg/actuation nasal spray,suspension furosemide 20 mg tablet 40 mg PO QAM 07/13/20 04/14/21 History levothyroxine 50 mcg tablet 50 mcg PO QAM 07/13/20 04/14/21 History metoprolol succinate 25 mg 25 mg PO HS 07/13/20 04/14/21 History tablet,extended release 24 hr umeclidinium 62.5 mcg-vilanterol 1 inh INHALATION QAM 07/13/20 04/14/21 History 25 mcg/actuation powdr for inhalation (Anoro Ellipta) Oxygen Home #1 ea 03/26/21 04/14/21 Rx omeprazole 40 mg capsule,delayed 40 mg PO DAILY 04/14/21 04/14/21 History release potassium chloride 10 mEq 20 meq PO DAILY 04/14/21 04/14/21 History tablet,extended release(part/cryst) Past Med/Surg History Medical History Abdominal aneurysm Anticoagulated on warfarin Atrial fibrillation Chronic diastolic CHF (congestive heart failure) Chronic respiratory failure with hypoxia CKD (chronic kidney disease) stage 3, GFR 30-59 ml/min COPD (chronic obstructive pulmonary disease) Diverticulosis GERD (gastroesophageal reflux disease) Hypertension Pneumonia due to COVID-19 virus Tachy-silvestre syndrome Tobacco abuse Surgical History H/O tubal ligation History of cardiac pacemaker "10/04/17 Dr. 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 Beliefs That Will Affect Care: None marital status: Current Living Situation: Family Current Living Situation Comment: Grandson and Son Feels Safe at Home: Yes Assistive Devices: Oxygen - Continuous and Walker Review of Systems Review of Systems: ROS per HPI, all other systems reviewed and negative Physical Exam Constitutional: WD/WN, vitals as above Eyes: PERRL, conjunctivae normal, anicteric sclerae ENMT: external ear and nose normal, oropharynx normal Respiratory: normal respiratory effort; no respiratory distress Auscultation: + crackles (Bilateral) and + wheezes (Bilateral, expiratory) Shortness of breath with minimal exertion Cardiovascular: Rate/Rhythm: regular rate and regular rhythm Vessels: normal peripheral pulses Extremities: + edema (+2 pitting edema BLE) Gastrointestinal (Abdomen): normal bowel sounds, soft, nontender, no hepatosplenomegaly Musculoskeletal: no cyanosis or clubbing, extremities motor strength 5/5 Skin: no rashes, warm and dry Hematoma noted to left anterior brown Neurologic: PERRL, EOMI, accommodation nl, no face palsy, no dysarthria Psychiatric: A+Ox3, euthymic affect Results & Data Results & Data ([facility]) Vital Signs (Past 12 Hours) Vital Signs Temp Pulse Pulse Resp BP BP Pulse Ox 04/14/21 17:00 70 20 133/76 95 04/14/21 15:13 60 97 04/14/21 15:10 68 68 20 97 04/14/21 15:07 37.3 C 73 21 154/92 H 93 04/14/21 14:59 37.3 C 81 21 154/92 H 97 Laboratory Results Short CBC 04/14/21 04/14/21 Range/Units 15:34 16:16 WBC Cancelled 12.20 H Hgb Cancelled 11.3 L Hct Cancelled 35.2 L Plt Count Cancelled 425 H BMP 04/14/21 15:34 Sodium 139 Potassium 3.8 Chloride 105 Carbon Dioxide 28 BUN 9 Creatinine 0.61 Glucose 93 Calcium 8.3 L Cardiac Enzymes 04/14/21 Range/Units 15:34 Troponin I < 0.015 (0-0.045) ng/ml Liver Function 04/14/21 Range/Units 15:34 Total Bilirubin 0.5 (0.2-1) mg/dl AST 20 (15-37) U/L ALT 15 (12-78) Alkaline Phosphatase 155 H D (45-117) U/L Albumin 1.9 L (3.4-5.0) gm/dl Diagnostic Findings Chest X-Ray 04/14/21 15:13 SINGLE VIEW CHEST CLINICAL HISTORY: Generalized weakness. FINDINGS: An AP, portable, upright chest radiograph is compared to study dated 03/21/2021. Correlation is made with chest CT dated 09/27/2017. The heart is enlarged. Findings of chronic interstitial lung disease are similar to previous. Extensive multifocal airspace opacities are seen throughout both lungs. This has significantly increased as compared to 03/21/2021. Small pleural effusions are noted. No pneumothorax is seen. The skeletal structures are osteopenic. The bony thorax is grossly intact. IMPRESSION: 1. Multifocal airspace opacities are seen throughout both lungs, and this has significantly increased as compared to 03/21/2021. This could represent pulmonary edema and/or multifocal pneumonia. Clinical correlation will be required and radiographic follow-up to resolution is recommended. 2. Cardiomegaly and cardiac pacemaker. 3. Small pleural effusions. ACT 112: Negative or not required by law. Electronically signed by: Mayank Calvin M.D. 04/14/2021 3:52 PM Code Status & VTE Plan Code Status Patient is a DNR as per my discussion with her. VTE Prophylaxis Plan VTE Prophylaxis will be ordered: No Supervising Physician Co-Signing Physician Notes Attending addendum: The patient was seen and examined in the emergency room She has been complaining of increasing shortness of breath, cough with whitish phlegm, leg swelling and tiredness She denies any chest pain and or palpitation, denies any fever and no chills On examination Lying in bed with minimal shortness of breath Hemodynamically stable Chestdiffuse crackles HeartS1-S2 Abdomenbenign Extremities1+ edema bilaterally Her admission labs, EKG and imaging studies reviewed Likely has CHF exacerbation with recent history of Covid pneumonia Has increasing INR with hematoma left anterior brown Agree with assessment and plan as outlined above by Stacey Franklin
[2021-04-14] MEDS: METOPROLOL SUCC 25MG EXT REL TAB PO SCH (23:13)
[2021-04-14] MEDS: AMIODARONE 200 MG TAB PO SCH (23:13)
[2021-04-14] MEDS: ALBUT/IPRATROP 3MG/0.5MG NEB 3 ML VIAL NEB SCH (23:21)
[2021-04-15] MEDS: ALBUT/IPRATROP 3MG/0.5MG NEB 3 ML VIAL NEB SCH ×7 (00:54→23:28)
[2021-04-15 06:00] LABS: Hematocrit (blood only) 35.4 % (37-47); Hemoglobin 11.3 g/dL (12.0-16.0); Mean Corpuscular Hemoglobin 29.7 pg (25-34); Mean Corpuscular Hgb Conc 31.9 g/dL (32-36); Mean Corpuscular Volume 93.2 fL (80-100); Mean Platelet Volume 9.8 fL (7.4-10.4); Platelet Count 401 K/uL (130-400); RDW Coefficient of Variation 15.6 % (11.5-14.5); RDW Standard Deviation 52.9 fL (36.4-46.3); White Blood Count 10.84 K/uL (4.8-10.8)
[2021-04-15 06:18] LABS: Prothrombin Time 36.6 Seconds (9.0-12.0)
[2021-04-15] MEDS: LEVOTHYROXINE SODIUM 50 MCG TABLET PO SCH (06:23)
[2021-04-15 06:36] LABS: BUN Creatinine Ratio 14.3 (10-20); Calcium 8.2 mg/dl (8.5-10.1); Creatinine Clr Calc Pharmacy 80.5 ml/min; Est GFR (African American) 103.7 ml/min; Est GFR (Non-African American) 89.5 ml/min; Magnesium 1.7 mg/dl (1.8-2.4); Potassium 3.1 mmol/L (3.5-5.1)
[2021-04-15] MEDS: UMECLIDINIUM/VILANTEROL 62.5/25MCG 7 PUFFS/INHALER INH SCH (08:24)
[2021-04-15] MEDS: FUROSEMIDE 40 MG/4 ML VIAL IV SCH ×2 (08:24→17:33)
[2021-04-15] MEDS: POTASSIUM CHLORIDE CRTAB 20 MEQ TABCR PO SCH (08:24)
[2021-04-15] MEDS: PANTOprazole 40 MG TAB PO SCH (08:25)
[2021-04-15] MEDS: FAMOTIDINE 20 MG TAB PO SCH (08:25)
--- NOTE | 2021-04-15 08:34 | Cardiology Consultation ---
Date of Consultation April 15, 2021 Assessment & Plan (1) Acute on chronic respiratory failure with hypoxia: (2) Acute on chronic diastolic CHF (congestive heart failure): (3) History of COVID-19: (4) Paroxysmal atrial fibrillation: Patient admitted for respiratory failure with hypoxia secondary to pneumonia post COVID and acute decompensated HF. Agree with IV furosemide 40 mg BID. Monitor I+O's. Daily weight with standing scale encouraged. Supplement potassium. Fluid restriction of 1500 ml daily Echo results pending Continue antibiotics, oxygen, supportive care per hospitalist to treat pneumonia. She was negative for recurrent COVID infection. This is likely lingering/re current pneumonia from last admission. INR was elevated on arrival. Hold Coumadin. Resume when INR is 2 She is on chronic amiodarone to maintain NSR. Doubtful this is pulm toxcicity form amiodarone, however we may need to discontinue pending her clinical course. Case discussed with Dr. Hairston. Will follow. Supervising Physician Co-Signing Physician Notes I have seen and evaluated the patient. I have reviewed the medical record and discussed the case with Ms. Flynn. Unfortunately the patient is still from damage to the lungs from COVID. She would benefit from diuresis for heart failure. History of Present Illness Reason for Consultation: CHF; Hypoxia; Respiratory Failure; Post COVID Requesting Physician: Dr. Franklin Attending Physician: Dr. Hairston History of Present Illness Patient is a 75 year old female, known to [facility], following with Justus De PA-C as outpatient. History includes: Past Medical History: 1. Symptomatic paroxysmal atrial fibrillation and flutter, prescribed amiodarone following October 04, 2017 pacemaker implantation 2. 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 Left subclavian pacemaker incision/pocket infection initially treated with Bactrim (with resultant significant hyperkalemia requiring hospitalization) then doxycycline, not requiring extraction 4. Chronic coumadin anticoagulation 5. Aortic stenosis 6. Diastolic heart failure 7. Chronic tobacco abuse. COPD/emphysema 8. Hypertension 9. Dyslipidemia In Mar 2021, patient was admitted to [facility] with COVID pneumonia and hypoxia. Unvaccinated. Supplemental O2 provided on discharge for persistent hypoxia. She was evaluated by Justus De PA-C on 04/08 with persistent SOB, and found to have worsening LE edema, weight gain and signs of decompensated CHF. Furosemide was increased from 20 mg PRN to 40 mg daily with potassium supplementation. Chest xray as outpatient at that time demonstrated b/l opacities consistent with prior COVID pneumonia. She was ordered to have echo done today. In the interim, patient admits to non compliance with diuretics over the last few days. She reports progressive weight gain, previously 166 lbs upon hospital discharge last week, and no about 180 lbs. She came to ER for worsening SOB. Chest xray consistent with post COVID pneumonia, worse since Mar 2021 xray. She was started on IV furosemide and antibiotics on admission. This morning, at time of consult, she reports he breathing status "is about the same". She has conversational dyspnea while sitting in bed. She notes signifiant cough and wheezing. SHe was negative for COVID on admission. She notes edema has slightly improved since admission, but still above baseline. She did not sleep well last night due to respiratory status. No chest pain. She has large hematoma on her left pretibial region from dropping a frozen chicken on it earlier this week. Allergies Allergy/AdvReac Type Severity Reaction Status Date / Time ciprofloxacin Allergy Severe Itching Unverified 04/14/21 16:23 sulfamethoxazole AdvReac Severe CAUSED Verified 04/14/21 16:23 [From Bactrim] KIDNEY PROBLEMS trimethoprim [From Bactrim] AdvReac Severe CAUSED Verified 04/14/21 16:23 KIDNEY PROBLEMS adhesive AdvReac Mild BLISTERS Verified 04/14/21 16:23 Home Medications Medication Instructions Recorded Confirmed Type warfarin 2 mg tablet (Joshuatoven) See Rx Instructions .ROUTE .COMPLEX 12/12/17 04/14/21 History albuterol sulfate 90 mcg/actuation 1 - 2 puff INHALATION DIRECTED 07/13/20 04/14/21 History aerosol inhaler (Ventolin HFA) PRN amiodarone 200 mg tablet 200 mg PO HS 07/13/20 04/14/21 History cyanocobalamin (vitamin B-12) 500 500 mcg PO QAM 07/13/20 04/14/21 History mcg tablet (Vitamin B-12) famotidine 20 mg tablet 20 mg PO QAM 07/13/20 04/14/21 History fluticasone propionate 50 2 spray INTRANASAL DAILY PRN 07/13/20 04/14/21 History mcg/actuation nasal spray,suspension furosemide 20 mg tablet 40 mg PO QAM 07/13/20 04/14/21 History levothyroxine 50 mcg tablet 50 mcg PO QAM 07/13/20 04/14/21 History metoprolol succinate 25 mg 25 mg PO HS 07/13/20 04/14/21 History tablet,extended release 24 hr umeclidinium 62.5 mcg-vilanterol 1 inh INHALATION QAM 07/13/20 04/14/21 History 25 mcg/actuation powdr for inhalation (Anoro Ellipta) Oxygen Home #1 ea 03/26/21 04/14/21 Rx omeprazole 40 mg capsule,delayed 40 mg PO DAILY 04/14/21 04/14/21 History release potassium chloride 10 mEq 20 meq PO DAILY 04/14/21 04/14/21 History tablet,extended release(part/cryst) Patient History Medical History Abdominal aneurysm Anticoagulated on warfarin Atrial fibrillation Chronic diastolic CHF (congestive heart failure) Chronic respiratory failure with hypoxia CKD (chronic kidney disease) stage 3, GFR 30-59 ml/min COPD (chronic obstructive pulmonary disease) Diverticulosis GERD (gastroesophageal reflux disease) Hypertension Pneumonia due to COVID-19 virus Tachy-joão syndrome Tobacco abuse Surgical History H/O tubal ligation History of cardiac pacemaker "10/04/17 Dr. 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 Beliefs That Will Affect Care: None marital status: Current Living Situation: Family Current Living Situation Comment: Grandson and Son Feels Safe at Home: Yes Assistive Devices: Oxygen - Continuous Review of Systems Review of Systems: All systems reviewed & are unremarkable except as noted in HPI & below Physical Exam Constitutional: WD/WN, vitals as above + ill appearing and + in distress (conversational dyspnea, labored breathing) ENMT: external ear and nose normal, oropharynx normal Respiratory: + labored breathing, + cough, + tachypneic and + audible wheezes Auscultation: + rhonchi and + wheezes Cardiovascular: Rate/Rhythm: regular rate and regular rhythm Heart Sounds: no murmur Extremities: + edema (1-2 + ankle and pretibial edema) Gastrointestinal (Abdomen): normal bowel sounds, soft, nontender, no hepatosplenomegaly Skin: Trauma: + hematoma (left pretibial area) Neurologic: PERRL, EOMI, accommodation nl, no face palsy, no dysarthria Psychiatric: A+Ox3, euthymic affect Results & Data ([facility]) Vital Signs (Past 12 Hours) Vital Signs Pulse Pulse Resp BP BP Pulse Ox 04/15/21 05:00 80 18 105/71 94 04/15/21 02:57 60 16 92 04/15/21 01:00 60 20 103/42 L 103/62 95 04/15/21 00:50 60 18 04/15/21 00:30 104/55 L 04/15/21 00:10 84 20 04/15/21 00:00 66 28 H 106/73 04/14/21 23:50 60 22 04/14/21 23:40 60 20 04/14/21 23:30 60 19 112/52 L 04/14/21 23:23 60 16 109/78 97 04/14/21 23:00 109/58 L 04/14/21 22:50 60 18 93 04/14/21 22:40 60 19 94 04/14/21 22:30 60 19 113/54 L 93 04/14/21 22:20 61 19 94 04/14/21 22:10 60 17 94 04/14/21 22:02 69 60 20 109/68 98 04/14/21 22:00 101/49 L 04/14/21 21:30 100/51 L 04/14/21 21:20 63 24 94 04/14/21 21:10 77 27 H 94 04/14/21 21:00 76 60 21 101/62 112/78 96 04/14/21 20:50 75 24 92 04/14/21 20:40 80 28 H 90 04/14/21 20:30 112/62 Laboratory Results 04/15/21 04/15/21 04/15/21 Range/Units 05:25 05:25 05:25 WBC 10.84 H RBC 3.80 L Hgb 11.3 L Hct 35.4 L MCV 93.2 MCH 29.7 MCHC 31.9 L RDW Std Deviation 52.9 H RDW Coeff of Cindy 15.6 H Plt Count 401 H MPV 9.8 Immature Gran % (Auto) Neut % (Auto) Lymph % (Auto) [place] % (Auto) Eos % (Auto) Baso % (Auto) Neut # (Auto) Lymph # (Auto) [place] # (Auto) Eos # (Auto) Baso # (Auto) Immature Gran # (Auto) Absolute Nucleated RBC Nucleated RBC % (auto) Neutrophils % (Manual) Band Neutrophils % Lymphocytes % (Manual) Prolymphocyte % Reactive Lymphs % (Man) Monocytes % (Manual) Eosinophils % (Manual) Basophils % (Manual) Metamyelocytes % (Man) Myelocytes % (Man) Promyelocytes % (Man) Blast Cells % (Manual) Plasma Cell % (Manual) Other Cells % Nucleated RBC % Neutrophils # (Manual) Band Neutrophils # Total Absolute Neuts Lymphocytes # (Manual) Prolymphocyte # Reactive Lymphs # Total Abs Lymphocytes Monocytes # (Manual) Eosinophils # (Manual) Basophils # (Manual) Metamyelocytes # (Man) Myelocytes # (Manual) Promyelocytes # (Man) Blast Cells # (Man) Plasma Cell # (Manual) Other Cells # Nucleated RBCs # (Man) Hypersegmented Neuts Hyposegmented Neuts Hypogranular Neuts Large Granular Lymphs # Lrg Granular Lymphs Hairy Cells Smudge Cells Toxic Granulation Toxic Vacuolation Dohle Bodies Brian Rods Platelet Estimate Hypogranular Platelets Clumped Platelets Giant Platelets Platelet Satelliting RBC Morphology Polychromasia Hypochromasia Poikilocytosis Basophilic Stippling Anisocytosis Microcytosis Macrocytosis Spherocytes Pappenheimer Bodies Sickle Cells Target Cells Tear Drop Cells Ovalocytes Stomatocytes Gomez-Murtaugh Bodies Echinocytes Acanthocytes (Spur) Rouleaux RBC Agglutinates Schistocytes RBC Morph Comment Sezary Cell PT 36.6 H (9.0-12.0) Seconds INR 4.0 H (0.9-1.1) Sodium 139 (136-145) mmol/L Potassium 3.1 L D (3.5-5.1) mmol/L Chloride 103 (98-107) mmol/L Carbon Dioxide 32 (21-32) mmol/L Anion Gap 4.0 (3-11) BUN 9 (7-18) mg/dl Creatinine 0.62 (0.6-1.2) mg/dl Est Cr Clr Drug Dosing 80.5 ml/min Est GFR ( Amer) 103.7 ml/min Est GFR (Non-Af Amer) 89.5 ml/min BUN/Creatinine Ratio 14.3 (10-20) Glucose 84 (70-99) mg/dl Calcium 8.2 L (8.5-10.1) mg/dl Magnesium 1.7 L (1.8-2.4) mg/dl Total Bilirubin (0.2-1) mg/dl AST (15-37) U/L ALT (12-78) Alkaline Phosphatase (45-117) U/L Troponin I (0-0.045) ng/ml NT-Pro-B Natriuret Pep (0-900) pg/ml Total Protein (6.4-8.2) gm/dl Albumin (3.4-5.0) gm/dl Globulin (2.5-4.0) gm/dl Albumin/Globulin Ratio (0.9-2) Procalcitonin (0-0.5) ng/ml SARS-CoV-2 (PCR) (Negative) Influenza Type A (PCR) (Neg) Influenza Type B (PCR) (Neg) RSV (RT-PCR) (Neg) 04/14/21 04/14/21 04/14/21 Range/Units 16:58 16:34 16:16 WBC 12.20 H RBC 3.80 L Hgb 11.3 L Hct 35.2 L MCV 92.6 MCH 29.7 MCHC 32.1 RDW Std Deviation 52.4 H RDW Coeff of Cindy 15.3 H Plt Count 425 H MPV 9.7 Immature Gran % (Auto) 0.2 Neut % (Auto) 77.1 Lymph % (Auto) 14.0 Madison % (Auto) 7.5 Eos % (Auto) 1.0 Baso % (Auto) 0.2 Neut # (Auto) 9.40 H Lymph # (Auto) 1.71 Madison # (Auto) 0.91 H Eos # (Auto) 0.12 Baso # (Auto) 0.03 Immature Gran # (Auto) 0.03 H Absolute Nucleated RBC Nucleated RBC % (auto) Neutrophils % (Manual) Band Neutrophils % Lymphocytes % (Manual) Prolymphocyte % Reactive Lymphs % (Man) Monocytes % (Manual) Eosinophils % (Manual) Basophils % (Manual) Metamyelocytes % (Man) Myelocytes % (Man) Promyelocytes % (Man) Blast Cells % (Manual) Plasma Cell % (Manual) Other Cells % Nucleated RBC % Neutrophils # (Manual) Band Neutrophils # Total Absolute Neuts Lymphocytes # (Manual) Prolymphocyte # Reactive Lymphs # Total Abs Lymphocytes Monocytes # (Manual) Eosinophils # (Manual) Basophils # (Manual) Metamyelocytes # (Man) Myelocytes # (Manual) Promyelocytes # (Man) Blast Cells # (Man) Plasma Cell # (Manual) Other Cells # Nucleated RBCs # (Man) Hypersegmented Neuts Hyposegmented Neuts Hypogranular Neuts Large Granular Lymphs # Lrg Granular Lymphs Hairy Cells Smudge Cells Toxic Granulation Toxic Vacuolation Dohle Bodies Brian Rods Platelet Estimate Hypogranular Platelets Clumped Platelets Giant Platelets Platelet Satelliting RBC Morphology Polychromasia Hypochromasia Poikilocytosis Basophilic Stippling Anisocytosis Microcytosis Macrocytosis Spherocytes Pappenheimer Bodies Sickle Cells Target Cells Tear Drop Cells Ovalocytes Stomatocytes Gomez-Murtaugh Bodies Echinocytes Acanthocytes (Spur) Rouleaux RBC Agglutinates Schistocytes RBC Morph Comment Sezary Cell PT (9.0-12.0) Seconds INR (0.9-1.1) Sodium (136-145) mmol/L Potassium (3.5-5.1) mmol/L Chloride (98-107) mmol/L Carbon Dioxide (21-32) mmol/L Anion Gap (3-11) BUN (7-18) mg/dl Creatinine (0.6-1.2) mg/dl Est Cr Clr Drug Dosing ml/min Est GFR ( Amer) ml/min Est GFR (Non-Af Amer) ml/min BUN/Creatinine Ratio (10-20) Glucose (70-99) mg/dl Calcium (8.5-10.1) mg/dl Magnesium (1.8-2.4) mg/dl Total Bilirubin (0.2-1) mg/dl AST (15-37) U/L ALT (12-78) Alkaline Phosphatase (45-117) U/L Troponin I (0-0.045) ng/ml NT-Pro-B Natriuret Pep (0-900) pg/ml Total Protein (6.4-8.2) gm/dl Albumin (3.4-5.0) gm/dl Globulin (2.5-4.0) gm/dl Albumin/Globulin Ratio (0.9-2) Procalcitonin < 0.05 (0-0.5) ng/ml SARS-CoV-2 (PCR) NEGATIVE (Negative) Influenza Type A (PCR) Negative (Neg) Influenza Type B (PCR) Negative (Neg) RSV (RT-PCR) Negative (Neg) 04/14/21 04/14/21 04/14/21 Range/Units 15:34 15:34 15:34 WBC RBC Hgb Hct MCV MCH MCHC RDW Std Deviation RDW Coeff of Cindy Plt Count MPV Immature Gran % (Auto) Neut % (Auto) Lymph % (Auto) Madison % (Auto) Eos % (Auto) Baso % (Auto) Neut # (Auto) Lymph # (Auto) [place] # (Auto) Eos # (Auto) Baso # (Auto) Immature Gran # (Auto) Absolute Nucleated RBC Nucleated RBC % (auto) Neutrophils % (Manual) Band Neutrophils % Lymphocytes % (Manual) Prolymphocyte % Reactive Lymphs % (Man) Monocytes % (Manual) Eosinophils % (Manual) Basophils % (Manual) Metamyelocytes % (Man) Myelocytes % (Man) Promyelocytes % (Man) Blast Cells % (Manual) Plasma Cell % (Manual) Other Cells % Nucleated RBC % Neutrophils # (Manual) Band Neutrophils # Total Absolute Neuts Lymphocytes # (Manual) Prolymphocyte # Reactive Lymphs # Total Abs Lymphocytes Monocytes # (Manual) Eosinophils # (Manual) Basophils # (Manual) Metamyelocytes # (Man) Myelocytes # (Manual) Promyelocytes # (Man) Blast Cells # (Man) Plasma Cell # (Manual) Other Cells # Nucleated RBCs # (Man) Hypersegmented Neuts Hyposegmented Neuts Hypogranular Neuts Large Granular Lymphs # Lrg Granular Lymphs Hairy Cells Smudge Cells Toxic Granulation Toxic Vacuolation Dohle Bodies Brian Rods Platelet Estimate Hypogranular Platelets Clumped Platelets Giant Platelets Platelet Satelliting RBC Morphology Polychromasia Hypochromasia Poikilocytosis Basophilic Stippling Anisocytosis Microcytosis Macrocytosis Spherocytes Pappenheimer Bodies Sickle Cells Target Cells Tear Drop Cells Ovalocytes Stomatocytes Gomez-Murtaugh Bodies Echinocytes Acanthocytes (Spur) Rouleaux RBC Agglutinates Schistocytes RBC Morph Comment Sezary Cell PT 72.3 H (9.0-12.0) Seconds INR 8.5 H* (0.9-1.1) Sodium 139 (136-145) mmol/L Potassium 3.8 (3.5-5.1) mmol/L Chloride 105 (98-107) mmol/L Carbon Dioxide 28 (21-32) mmol/L Anion Gap 6.0 (3-11) BUN 9 (7-18) mg/dl Creatinine 0.61 (0.6-1.2) mg/dl Est Cr Clr Drug Dosing 81.8 ml/min Est GFR ( Amer) 104.2 ml/min Est GFR (Non-Af Amer) 89.9 ml/min BUN/Creatinine Ratio 14.2 (10-20) Glucose 93 (70-99) mg/dl Calcium 8.3 L (8.5-10.1) mg/dl Magnesium (1.8-2.4) mg/dl Total Bilirubin 0.5 (0.2-1) mg/dl AST 20 (15-37) U/L ALT 15 (12-78) Alkaline Phosphatase 155 H D (45-117) U/L Troponin I < 0.015 (0-0.045) ng/ml NT-Pro-B Natriuret Pep 1672 H (0-900) pg/ml Total Protein 5.9 L (6.4-8.2) gm/dl Albumin 1.9 L (3.4-5.0) gm/dl Globulin 4.0 (2.5-4.0) gm/dl Albumin/Globulin Ratio 0.5 L (0.9-2) Procalcitonin (0-0.5) ng/ml SARS-CoV-2 (PCR) (Negative) Influenza Type A (PCR) (Neg) Influenza Type B (PCR) (Neg) RSV (RT-PCR) (Neg) 04/14/21 Range/Units 15:34 WBC Cancelled RBC Cancelled Hgb Cancelled Hct Cancelled MCV Cancelled MCH Cancelled MCHC Cancelled RDW Std Deviation Cancelled RDW Coeff of Cindy Cancelled Plt Count Cancelled MPV Cancelled Immature Gran % (Auto) Cancelled Neut % (Auto) Cancelled Lymph % (Auto) Cancelled Madison % (Auto) Cancelled Eos % (Auto) Cancelled Baso % (Auto) Cancelled Neut # (Auto) Cancelled Lymph # (Auto) Cancelled Madison # (Auto) Cancelled Eos # (Auto) Cancelled Baso # (Auto) Cancelled Immature Gran # (Auto) Cancelled Absolute Nucleated RBC Cancelled Nucleated RBC % (auto) Cancelled Neutrophils % (Manual) Cancelled Band Neutrophils % Cancelled Lymphocytes % (Manual) Cancelled Prolymphocyte % Cancelled Reactive Lymphs % (Man) Cancelled Monocytes % (Manual) Cancelled Eosinophils % (Manual) Cancelled Basophils % (Manual) Cancelled Metamyelocytes % (Man) Cancelled Myelocytes % (Man) Cancelled Promyelocytes % (Man) Cancelled Blast Cells % (Manual) Cancelled Plasma Cell % (Manual) Cancelled Other Cells % Cancelled Nucleated RBC % Cancelled Neutrophils # (Manual) Cancelled Band Neutrophils # Cancelled Total Absolute Neuts Cancelled Lymphocytes # (Manual) Cancelled Prolymphocyte # Cancelled Reactive Lymphs # Cancelled Total Abs Lymphocytes Cancelled Monocytes # (Manual) Cancelled Eosinophils # (Manual) Cancelled Basophils # (Manual) Cancelled Metamyelocytes # (Man) Cancelled Myelocytes # (Manual) Cancelled Promyelocytes # (Man) Cancelled Blast Cells # (Man) Cancelled Plasma Cell # (Manual) Cancelled Other Cells # Cancelled Nucleated RBCs # (Man) Cancelled Hypersegmented Neuts Cancelled Hyposegmented Neuts Cancelled Hypogranular Neuts Cancelled Large Granular Lymphs Cancelled # Lrg Granular Lymphs Cancelled Hairy Cells Cancelled Smudge Cells Cancelled Toxic Granulation Cancelled Toxic Vacuolation Cancelled Dohle Bodies Cancelled Brian Rods Cancelled Platelet Estimate Cancelled Hypogranular Platelets Cancelled Clumped Platelets Cancelled Giant Platelets Cancelled Platelet Satelliting Cancelled RBC Morphology Cancelled Polychromasia Cancelled Hypochromasia Cancelled Poikilocytosis Cancelled Basophilic Stippling Cancelled Anisocytosis Cancelled Microcytosis Cancelled Macrocytosis Cancelled Spherocytes Cancelled Pappenheimer Bodies Cancelled Sickle Cells Cancelled Target Cells Cancelled Tear Drop Cells Cancelled Ovalocytes Cancelled Stomatocytes Cancelled Gomez-Murtaugh Bodies Cancelled Echinocytes Cancelled Acanthocytes (Spur) Cancelled Rouleaux Cancelled RBC Agglutinates Cancelled Schistocytes Cancelled RBC Morph Comment Cancelled Sezary Cell Cancelled PT (9.0-12.0) Seconds INR (0.9-1.1) Sodium (136-145) mmol/L Potassium (3.5-5.1) mmol/L Chloride (98-107) mmol/L Carbon Dioxide (21-32) mmol/L Anion Gap (3-11) BUN (7-18) mg/dl Creatinine (0.6-1.2) mg/dl Est Cr Clr Drug Dosing ml/min Est GFR ( Amer) ml/min Est GFR (Non-Af Amer) ml/min BUN/Creatinine Ratio (10-20) Glucose (70-99) mg/dl Calcium (8.5-10.1) mg/dl Magnesium (1.8-2.4) mg/dl Total Bilirubin (0.2-1) mg/dl AST (15-37) U/L ALT (12-78) Alkaline Phosphatase (45-117) U/L Troponin I (0-0.045) ng/ml NT-Pro-B Natriuret Pep (0-900) pg/ml Total Protein (6.4-8.2) gm/dl Albumin (3.4-5.0) gm/dl Globulin (2.5-4.0) gm/dl Albumin/Globulin Ratio (0.9-2) Procalcitonin (0-0.5) ng/ml SARS-CoV-2 (PCR) (Negative) Influenza Type A (PCR) (Neg) Influenza Type B (PCR) (Neg) RSV (RT-PCR) (Neg) Diagnostic Findings Telemetry reviewed - atrial paced rhythm. HR's 60's EKG on admission: Atrial-paced rhythm with prolonged AV conduction Low voltage QRS Abnormal ECG When compared with ECG of 13-MAR-2021 12:47, No significant change was found Chest xray reviewed from admission: IMPRESSION: 1. Multifocal airspace opacities are seen throughout both lungs, and this has significantly increased as compared to 03/21/2021. This could represent pulmonary edema and/or multifocal pneumonia. Clinical correlation will be required and radiographic follow-up to resolution is recommended. 2. Cardiomegaly and cardiac pacemaker. 3. Small pleural effusions Outpatient chest xray on 04/08/21: IMPRESSION Diffuse bilateral airspace opacities throughout the lungs, likely sequela of prior COVID 19 pneumonia. Device interrogation report reviewed dated Dec 2020: DEVICE EVALUATION: AtrialR V Autothreshold:0.75volts at 0.4msec1.0volts at 0.4msec Sensing: Paced at 30 bpm15.8 mV Pacing impedance:342ohms 399ohms Pacing burden:100% 0% Mode switch episodes:0 Oral anticoagulant therapy: Jantoven Rate/Rhythm medication:Amiodarone Metoprolol Battery:3.01volts with an estimated longevity of 10.1years. Magnet rate of 85bpm. Elective Replacement Indicator:2.63volts and/or magnet rate of 65bpm. Echo in August 2020 reviewed: The primary indication after review was deemed appropriate and the examination was performed. Compared to last available study, there has been no interval change. Normal LV chamber size with mild concentric LVH. Normal LV systolic function without regional wall motion abnormalities. Calculated LV ejection Fraction = 63% (bi-plane method of discs). Grade 2 diastolic dysfunction. The aortic valve has three leaflets. The aortic valve is mildly calcified. Mild aortic valve stenosis is present. There is no significant aortic regurgitation. Mild left atrial enlargement. Medications Administered Current Inpatient Medications Acetaminophen (Acetaminophen 325 Mg Tab) 650 mg PO Q4H PRN PRN Reason: Pain or Fever Stop: 05/14/21 22:01 Last Admin: 04/15/21 09:55 Dose: 650 mg Documented by: Albuterol (Albut/Ipratrop 3mg/0.5mg Neb 3 Ml Vial) 3 ml NEB Q4R [facility]; Protocol Stop: 05/14/21 22:01 Last Admin: 04/15/21 10:28 Dose: 3 ml Documented by: Amiodarone HCl (Amiodarone 200 Mg Tab) [address] [facility] Stop: 05/14/21 22:01 Last Admin: 04/14/21 23:13 Dose: 200 mg Documented by: Famotidine (Famotidine 20 Mg Tab) 20 mg PO QAM [place] Stop: 05/15/21 08:59 Last Admin: 04/15/21 08:25 Dose: 20 mg Documented by: Furosemide (Furosemide 40 Mg/4 Ml Vial) 40 mg IV [id number] [place] Stop: 05/15/21 08:59 Last Admin: 04/15/21 08:24 Dose: 40 mg Documented by: Levothyroxine Sodium (Levothyroxine Sodium 50 Mcg Tablet) [address] [facility] Stop: 05/15/21 06:29 Last Admin: 04/15/21 06:23 Dose: 50 mcg Documented by: Metoprolol Succinate (Metoprolol Succ 25mg Ext Rel Tab) [address] [facility] Stop: 05/14/21 22:01 Last Admin: 04/14/21 23:13 Dose: 25 mg Documented by: Pantoprazole Sodium (Pantoprazole 40 Mg Tab) 40 mg PO DAILY [place] Stop: 05/15/21 08:59 Last Admin: 04/15/21 08:25 Dose: 40 mg Documented by: Potassium Chloride (Potassium Chloride Crtab 20 Meq Tabcr) [address] [facility] Stop: 05/15/21 08:59 Last Admin: 04/15/21 08:24 Dose: 20 meq Documented by: Umeclidinium/Vilanterol (Umeclidinium/Vilanterol 62.5/25mcg 7 Puffs/Inhaler) [address] [facility] Stop: 05/15/21 08:59 Last Admin: 04/15/21 08:24 Dose: 1 puffs Documented by:
[2021-04-15] MEDS ORDERED: POTASSIUM CHLORIDE CRTAB 20 MEQ TABCR PO STA (09:06)
[2021-04-15] MEDS: ACETAMINOPHEN 325 MG TAB PO PRN (09:55)
[2021-04-15 11:46] LABS: Appearance Urine Cloudy (Clear); Bacteria Urine Automated Negative (Negative); Bilirubin Urine Negative (Negative); Blood Urine Negative (Negative); Cast Urine Automated 0 /lpf (0-5); Color Urine Yellow; Glucose Urine UA Negative (Negative); Ketones Urine Negative (Negative); Leukocyte Esterase Urine Negative (Negative); Nitrite Urine Negative (Negative); Protein Urine Negative (Negative); Specific Gravity Urine 1.007 (1.000-1.030); Urobilinogen Urine Negative (Negative); pH Urine 6.5 (4.5-7.5)
[2021-04-15 11:56] LABS: RBC Urine Automated 0-4 /hpf (0-4)
--- NOTE | 2021-04-15 17:02 | Hospitalist Progress Note ---
Date of Service April 15, 2021 Assessment & Plan (1) Acute on chronic respiratory failure with hypoxia: (2) Acute on chronic diastolic CHF (congestive heart failure): (3) COPD (chronic obstructive pulmonary disease): (4) History of COVID-19: Plan: -Patient presenting from home with reports of worsening shortness of breath, lower extremity edema, weight gain for the past few weeks. Admitted 03/13 through 03/26 for COVID-19 pneumonia. Discharged home on 2 L of oxygen. Seen in the cardiology clinic on 04/08 and was instructed to increase Lasix to 40 mg daily for acute diastolic CHF. Patient admits to some medication noncompliance. Home health noted patient to be hypoxic with ambulation on 2 L of oxygen, was requiring 4 L of oxygen to maintain saturation. -In the ED, CXR shows signs of volume overload and post COVID-19 changes. proBNP 1600. -Procalcitonin negative -S/p Lasix 40 mg IV in the ED, continue Lasix 40 mg IV twice daily -Echo 08/2020-EF 63%, grade 2 diastolic dysfunction, mild aortic stenosis. Update echo. -Strict I's and O's, low Na+ diet, daily weights -Cardiology consult-appreciate input and recommendation -Given negative pro calcitonin, will hold on antibiotics for now -Patient does have wheezing on exam however would avoid steroids in the setting of volume overload. Wheezing likely due to volume overload. Reevaluate after diuresis. -Continue home inhalers for COPD, nebs -Clinically better and has been diuresing enough -We will continue current dose of Lasix (5) Atrial fibrillation: Plan: Rate is controlled (6) Tachy-silvestre syndrome: (7) Elevated INR: Plan: -S/p pacemaker -Rhythm controlled on amiodarone, rate controlled on metoprolol -Anticoagulated on Coumadin, INR 8.2. Received vitamin K 5 mg p.o. in ED -Has a small hematoma on left anterior brown however no other signs of bleeding -INR is 4.0 today and Coumadin is on hold (8) Hematoma of leg: Plan: -Small, contained -Patient reports dropping a frozen chicken on her leg -Monitor closely for expansion given supratherapeutic INR (9) DVT prophylaxis: Plan: -On Coumadin with supratherapeutic INR Admission and Anticipated Discharge Date Admission Date: April 14, 2021 Subjective 04/15/2021 The patient was seen and examined in emergency room in the [facility] area She has been feeling much better today Remains weak and lethargic and denies any chest pain and/or palpitation Review of Systems Review of Systems: All systems reviewed and are unremarkable except as noted below Respiratory: Minimal shortness of breath at rest Physical Exam Physical Exam: Lying in bed comfortably Constitutional: well developed, well nourished, + ill appearing and + obese Eyes: PERRL, conjunctivae normal, anicteric sclerae ENMT: external ear and nose normal, oropharynx normal Neck: trachea midline, no thyromegaly Respiratory: + respiratory distress (Mild to moderate) Auscultation: + diminished lung sounds and + crackles (All over) Cardiovascular: Rate/Rhythm: regular rate and regular rhythm; not tachycardic Heart Sounds: normal S1 and normal S2; no murmur Extremities: + edema (1+ edema bilaterally) Gastrointestinal (Abdomen): Inspection/Auscultation: normal bowel sounds; abdomen not distended Percussion/Palpation: abdomen soft; abdomen nontender Musculoskeletal: No acute arthritis in any joint. Hematoma over the lower part of the left brown has been improving Neurologic: Alert, awake and oriented x3. No focal sensory and motor deficit appreciated Lymphatic: no cervical or axillary lymphadenopathy Results & Data Results & Data ([facility]) Vital Signs (Past 12 Hours) Vital Signs Pulse Pulse Resp BP BP Pulse Ox 04/15/21 16:00 71 24 107/57 L 04/15/21 15:51 70 18 96 04/15/21 15:30 82 26 H 95 04/15/21 15:00 84 22 96 04/15/21 14:30 61 25 H 95 04/15/21 14:00 64 20 95/51 L 04/15/21 13:30 61 21 97 04/15/21 13:00 73 27 H 96 04/15/21 12:30 70 23 97 04/15/21 12:00 85 19 104/67 98 04/15/21 11:30 88 18 106/56 L 97 04/15/21 11:00 68 26 H 04/15/21 10:30 91 H 38 H 04/15/21 10:28 95 H 16 88 L 04/15/21 10:00 68 24 109/55 L 97 04/15/21 09:48 72 18 112/59 L 97 04/15/21 09:30 61 19 112/59 L 92 04/15/21 09:02 61 19 147/47 H 92 04/15/21 09:00 61 23 93 04/15/21 08:30 77 23 127/70 89 L 04/15/21 08:18 66 24 120/62 98 04/15/21 08:00 60 16 99 04/15/21 07:00 101 H 20 95 04/15/21 06:00 83 18 95 04/15/21 05:30 24 105/71 90 04/15/21 05:00 80 16 114/56 L 105/71 95 Laboratory Results Short CBC 04/15/21 Range/Units 05:25 WBC 10.84 H (4.8-10.8) K/uL Hgb 11.3 L (12.0-16.0) g/dL Hct 35.4 L (37-47) % Plt Count 401 H (130-400) K/uL BMP 04/15/21 05:25 Sodium 139 Potassium 3.1 L D Chloride 103 Carbon Dioxide 32 BUN 9 Creatinine 0.62 Glucose 84 Calcium 8.2 L Urine 04/15/21 Range/Units 11:33 Urine Color Yellow Urine Appearance Cloudy A (Clear) Urine pH 6.5 (4.5-7.5) Ur Specific [place] 1.007 (1.000-1.030) Urine Protein Negative (Negative) Urine Glucose (UA) Negative (Negative) Medications Administered Current Inpatient Medications Acetaminophen (Acetaminophen 325 Mg Tab) 650 mg PO Q4H PRN PRN Reason: Pain or Fever Stop: 05/14/21 22:01 Last Admin: 04/15/21 09:55 Dose: 650 mg Documented by: Albuterol (Albut/Ipratrop 3mg/0.5mg Neb 3 Ml Vial) 3 ml NEB Q4R [facility]; Protocol Stop: 05/14/21 22:01 Last Admin: 04/15/21 15:51 Dose: 3 ml Documented by: Amiodarone HCl (Amiodarone 200 Mg Tab) 200 mg PO HS [facility] Stop: 05/14/21 22:01 Last Admin: 04/14/21 23:13 Dose: 200 mg Documented by: Famotidine (Famotidine 20 Mg Tab) 20 mg PO QAM [facility] Stop: 05/15/21 08:59 Last Admin: 04/15/21 08:25 Dose: 20 mg Documented by: Furosemide (Furosemide 40 Mg/4 Ml Vial) 40 mg IV BID17 [facility] Stop: 05/15/21 08:59 Last Admin: 04/15/21 08:24 Dose: 40 mg Documented by: Levothyroxine Sodium (Levothyroxine Sodium 50 Mcg Tablet) 50 mcg PO DAILYBB [facility] Stop: 05/15/21 06:29 Last Admin: 04/15/21 06:23 Dose: 50 mcg Documented by: Metoprolol Succinate (Metoprolol Succ 25mg Ext Rel Tab) 25 mg PO HS [facility] Stop: 05/14/21 22:01 Last Admin: 04/14/21 23:13 Dose: 25 mg Documented by: Pantoprazole Sodium (Pantoprazole 40 Mg Tab) 40 mg PO DAILY [facility] Stop: 05/15/21 08:59 Last Admin: 04/15/21 08:25 Dose: 40 mg Documented by: Potassium Chloride (Potassium Chloride Crtab 20 Meq Tabcr) 20 meq PO DAILY [facility] Stop: 05/15/21 08:59 Last Admin: 04/15/21 08:24 Dose: 20 meq Documented by: Umeclidinium/Vilanterol (Umeclidinium/Vilanterol 62.5/25mcg 7 Puffs/Inhaler) 1 puffs INH QAM [facility] Stop: 05/15/21 08:59 Last Admin: 04/15/21 08:24 Dose: 1 puffs Documented by:
[2021-04-15] MEDS: AMIODARONE 200 MG TAB PO SCH (19:46)
[2021-04-15] MEDS: METOPROLOL SUCC 25MG EXT REL TAB PO SCH (19:46)
[2021-04-16] MEDS: ALBUT/IPRATROP 3MG/0.5MG NEB 3 ML VIAL NEB SCH ×3 (05:38→11:11)
[2021-04-16] MEDS: LEVOTHYROXINE SODIUM 50 MCG TABLET PO SCH (05:45)
[2021-04-16 07:09] LABS: Basophils # (auto) 0.03 K/uL (0-0.2); Basophils % (auto) 0.3 %; Eosinophils # (auto) 0.18 K/uL (0-0.5); Eosinophils % (auto) 1.8 %; Hematocrit (blood only) 36.7 % (37-47); Hemoglobin 11.7 g/dL (12.0-16.0); Immature Granulocytes # (auto) 0.03 K/uL (0.00-0.02); Immature Granulocytes % (auto) 0.3 %; Lymphocytes # (auto) 2.25 K/uL (1.2-3.4); Mean Corpuscular Hemoglobin 29.5 pg (25-34); Mean Corpuscular Hgb Conc 31.9 g/dL (32-36); Mean Corpuscular Volume 92.7 fL (80-100); Mean Platelet Volume 9.8 fL (7.4-10.4); Monocytes % (auto) 9.8 %; Neutrophils # (auto) 6.76 K/uL (1.4-6.5); Neutrophils % (auto) 65.8 %; Platelet Count 428 K/uL (130-400); RDW Coefficient of Variation 15.5 % (11.5-14.5); Red Blood Count 3.96 M/uL (4.2-5.4); White Blood Count 10.25 K/uL (4.8-10.8)
[2021-04-16 07:17] LABS: INR 1.6 (0.9-1.1); Prothrombin Time 15.6 Seconds (9.0-12.0)
[2021-04-16 07:39] LABS: BUN Creatinine Ratio 13.8 (10-20); Calcium 8.5 mg/dl (8.5-10.1); Creatinine Clr Calc Pharmacy 56.9 ml/min; Est GFR (African American) 78.8 ml/min; Potassium 3.9 mmol/L (3.5-5.1)
--- NOTE | 2021-04-16 09:04 | Cardiology Progress Note ---
Date of Service April 16, 2021 Assessment & Plan (1) Acute on chronic respiratory failure with hypoxia: (2) Acute on chronic diastolic CHF (congestive heart failure): (3) History of COVID-19: (4) Paroxysmal atrial fibrillation: Plan: Patient admitted for respiratory failure with hypoxia secondary to pneumonia post COVID and acute decompensated diastolic HF. Good urine outputs/diuresis over the last 24 hours with IV furosemide 40 mg BID. Continue diuretics today. Monitor I+O's. Daily weight with standing scale encouraged. Down approx 8 lbs since admission. Supplement potassium. Fluid restriction of 1500 ml daily Echo with preserved LV systolic function, diastolic dysfunction, and pulm hypertension. She was negative for recurrent COVID infection. INR was elevated on arrival. Coumadin held yesterday. INR 1.7 and would resume therapy She is on chronic amiodarone to maintain NSR. Doubtful this is pulm toxcicity form amiodarone, however we may need to discontinue pending her clinical course. Case discussed with Dr. Hairston. Will follow. Admission and Anticipated Discharge Date Admission Date: April 14, 2021 Supervising Physician Co-Signing Physician Notes I have seen and examined the patient. I have reviewed the medical record and discussed the case with Ms. Flynn. The patient is clinically better after large diuresis. I agree with the plan as outlined. Subjective Patient resting in bed. Still reports dyspnea with minimal exertion, such as ambulating to restroom. Remains hypoxic and requiring supplemental O2. Cough improved from yesterday. Less dyspneic with conversation. no chest pain. Edema improving. Review of Systems Review of Systems: All systems reviewed & are unremarkable except as noted in HPI & below Physical Exam Constitutional: WD/WN, vitals as above no acute distress ENMT: external ear and nose normal, oropharynx normal Respiratory: + cough; no respiratory distress Auscultation: + crackles and + wheezes Cardiovascular: Rate/Rhythm: regular rate and regular rhythm Heart Sounds: no murmur Extremities: + edema (1+ ankle and pretibial edema) Gastrointestinal (Abdomen): normal bowel sounds, soft, nontender, no hepatosplenomegaly Skin: Trauma: + hematoma (left pretibial area) Neurologic: PERRL, EOMI, accommodation nl, no face palsy, no dysarthria Psychiatric: A+Ox3, euthymic affect Results & Data ([facility]) Vital Signs (Past 12 Hours) Vital Signs Temp Pulse Pulse Resp BP Pulse Ox 04/16/21 07:58 36.6 C 72 20 109/63 82 L 04/16/21 07:25 60 04/16/21 07:16 68 20 94 04/16/21 03:45 36.9 C 71 19 101/61 94 04/15/21 23:51 37.2 C 88 19 97/63 L 88 L 04/15/21 23:29 16 98 04/15/21 22:49 61 Laboratory Results 04/16/21 04/16/21 04/16/21 Range/Units 06:34 06:34 06:34 WBC 10.25 (4.8-10.8) K/uL RBC 3.96 L (4.2-5.4) M/uL Hgb 11.7 L (12.0-16.0) g/dL Hct 36.7 L (37-47) % MCV 92.7 (80-100) fL MCH 29.5 (25-34) pg MCHC 31.9 L (32-36) g/dL RDW Std Deviation 53.0 H (36.4-46.3) fL RDW Coeff of Cindy 15.5 H (11.5-14.5) % Plt Count 428 H (130-400) K/uL MPV 9.8 (7.4-10.4) fL Immature Gran % (Auto) 0.3 % Neut % (Auto) 65.8 % Lymph % (Auto) 22.0 % Dale % (Auto) 9.8 % Eos % (Auto) 1.8 % Baso % (Auto) 0.3 % Neut # (Auto) 6.76 H (1.4-6.5) K/uL Lymph # (Auto) 2.25 (1.2-3.4) K/uL Dale # (Auto) 1.00 H (0.11-0.59) K/uL Eos # (Auto) 0.18 (0-0.5) K/uL Baso # (Auto) 0.03 (0-0.2) K/uL Immature Gran # (Auto) 0.03 H (0.00-0.02) K/uL PT 15.6 H (9.0-12.0) Seconds INR 1.6 H (0.9-1.1) Sodium 140 (136-145) mmol/L Potassium 3.9 D (3.5-5.1) mmol/L Chloride 102 (98-107) mmol/L Carbon Dioxide 32 (21-32) mmol/L Anion Gap 6.0 (3-11) BUN 12 (7-18) mg/dl Creatinine 0.85 (0.6-1.2) mg/dl Est Cr Clr Drug Dosing 56.9 ml/min Est GFR ( Amer) 78.8 ml/min Est GFR (Non-Af Amer) 68.0 ml/min BUN/Creatinine Ratio 13.8 (10-20) Glucose 94 (70-99) mg/dl Calcium 8.5 (8.5-10.1) mg/dl Urine Color Urine Appearance (Clear) Urine pH (4.5-7.5) Ur Specific [place] (1.000-1.030) Urine Protein (Negative) Urine Glucose (UA) (Negative) Urine Ketones (Negative) Urine Blood (Negative) Urine Nitrite (Negative) Urine Bilirubin (Negative) Urine Urobilinogen (Negative) Ur Leukocyte Esterase (Negative) Urine WBC (Auto) (0-5) /hpf Urine RBC (Auto) (0-4) /hpf U Hyaline Cast (Auto) (0-5) /lpf U Epithel Cells (Auto) (0-5) /lpf Urine Bacteria (Auto) (Negative) Urine Crystals Other Crystals (None Prsent) Urine Yeast (None Prsent) 04/15/21 Range/Units 11:33 WBC (4.8-10.8) K/uL RBC (4.2-5.4) M/uL Hgb (12.0-16.0) g/dL Hct (37-47) % MCV (80-100) fL MCH (25-34) pg MCHC (32-36) g/dL RDW Std Deviation (36.4-46.3) fL RDW Coeff of Cindy (11.5-14.5) % Plt Count (130-400) K/uL MPV (7.4-10.4) fL Immature Gran % (Auto) % Neut % (Auto) % Lymph % (Auto) % Dale % (Auto) % Eos % (Auto) % Baso % (Auto) % Neut # (Auto) (1.4-6.5) K/uL Lymph # (Auto) (1.2-3.4) K/uL Dale # (Auto) (0.11-0.59) K/uL Eos # (Auto) (0-0.5) K/uL Baso # (Auto) (0-0.2) K/uL Immature Gran # (Auto) (0.00-0.02) K/uL PT (9.0-12.0) Seconds INR (0.9-1.1) Sodium (136-145) mmol/L Potassium (3.5-5.1) mmol/L Chloride (98-107) mmol/L Carbon Dioxide (21-32) mmol/L Anion Gap (3-11) BUN (7-18) mg/dl Creatinine (0.6-1.2) mg/dl Est Cr Clr Drug Dosing ml/min Est GFR ( Amer) ml/min Est GFR (Non-Af Amer) ml/min BUN/Creatinine Ratio (10-20) Glucose (70-99) mg/dl Calcium (8.5-10.1) mg/dl Urine Color Yellow Urine Appearance Cloudy A (Clear) Urine pH 6.5 (4.5-7.5) Ur Specific [place] 1.007 (1.000-1.030) Urine Protein Negative (Negative) Urine Glucose (UA) Negative (Negative) Urine Ketones Negative (Negative) Urine Blood Negative (Negative) Urine Nitrite Negative (Negative) Urine Bilirubin Negative (Negative) Urine Urobilinogen Negative (Negative) Ur Leukocyte Esterase Negative (Negative) Urine WBC (Auto) 1-5 (0-5) /hpf Urine RBC (Auto) 0-4 (0-4) /hpf U Hyaline Cast (Auto) 0 (0-5) /lpf U Epithel Cells (Auto) 10-20 H (0-5) /lpf Urine Bacteria (Auto) Negative (Negative) Urine Crystals Not Reportable Other Crystals Talc (None Prsent) Urine Yeast Budding A (None Prsent) Diagnostic Findings Telemetry reviewed - atrial paced, ventricular sensed rhythm. No arrhythmias. Medications Administered Current Inpatient Medications Acetaminophen (Acetaminophen 325 Mg Tab) 650 mg PO Q4H PRN PRN Reason: Pain or Fever Stop: 05/14/21 22:01 Last Admin: 04/15/21 09:55 Dose: 650 mg Documented by: Albuterol (Albut/Ipratrop 3mg/0.5mg Neb 3 Ml Vial) 3 ml NEB Q4R [facility]; Protocol Stop: 05/14/21 22:01 Last Admin: 04/16/21 07:15 Dose: 3 ml Documented by: Amiodarone HCl (Amiodarone 200 Mg Tab) 200 mg PO [facility] Stop: 05/14/21 22:01 Last Admin: 04/15/21 19:46 Dose: 200 mg Documented by: Famotidine (Famotidine 20 Mg Tab) 20 mg PO QAM [facility] Stop: 05/15/21 08:59 Last Admin: 04/16/21 09:48 Dose: 20 mg Documented by: Furosemide (Furosemide 40 Mg/4 Ml Vial) 40 mg IV BID17 [facility] Stop: 05/15/21 08:59 Last Admin: 04/16/21 09:50 Dose: 40 mg Documented by: Levothyroxine Sodium (Levothyroxine Sodium 50 Mcg Tablet) 50 mcg PO DAILYBB [facility] Stop: 05/15/21 06:29 Last Admin: 04/16/21 05:45 Dose: 50 mcg Documented by: Metoprolol Succinate (Metoprolol Succ 25mg Ext Rel Tab) 25 mg PO [facility] Stop: 05/14/21 22:01 Last Admin: 04/15/21 19:46 Dose: 25 mg Documented by: Pantoprazole Sodium (Pantoprazole 40 Mg Tab) 40 mg PO DAILY [facility] Stop: 05/15/21 08:59 Last Admin: 04/16/21 09:48 Dose: 40 mg Documented by: Potassium Chloride (Potassium Chloride Crtab 20 Meq Tabcr) 20 meq PO DAILY [facility] Stop: 05/15/21 08:59 Last Admin: 04/16/21 09:48 Dose: 20 meq Documented by: Umeclidinium/Vilanterol (Umeclidinium/Vilanterol 62.5/25mcg 7 Puffs/Inhaler) 1 puffs INH QAM [facility] Stop: 05/15/21 08:59 Last Admin: 04/16/21 09:49 Dose: 1 puffs Documented by:
[2021-04-16] MEDS: PANTOprazole 40 MG TAB PO SCH (09:48)
[2021-04-16] MEDS: POTASSIUM CHLORIDE CRTAB 20 MEQ TABCR PO SCH (09:48)
[2021-04-16] MEDS: FAMOTIDINE 20 MG TAB PO SCH (09:48)
[2021-04-16] MEDS: UMECLIDINIUM/VILANTEROL 62.5/25MCG 7 PUFFS/INHALER INH SCH (09:49)
[2021-04-16] MEDS: FUROSEMIDE 40 MG/4 ML VIAL IV SCH ×2 (09:50→16:53)
[2021-04-16] MEDS ORDERED: MAGNESIUM OXIDE 400 MG TAB PO ONE (10:00)
[2021-04-16] MEDS ORDERED: ALBUT/IPRATROP 3MG/0.5MG NEB 3 ML VIAL NEB PRN (12:19)
--- NOTE | 2021-04-16 13:38 | Hospitalist Progress Note ---
Date of Service April 16, 2021 Assessment & Plan (1) Acute on chronic respiratory failure with hypoxia: Plan: Management as below (2) Acute on chronic diastolic CHF (congestive heart failure): Plan: -Patient presenting from home with reports of worsening shortness of breath, lower extremity edema, weight gain for the past few weeks. Admitted 03/13 through 03/26 for COVID-19 pneumonia. Discharged home on 2 L of oxygen. Seen in the cardiology clinic on 04/08 and was instructed to increase Lasix to 40 mg daily for acute diastolic CHF. Patient admits to some medication noncompliance. Home health noted patient to be hypoxic with ambulation on 2 L of oxygen, was requiring 4 L of oxygen to maintain saturation. -In the ED, CXR shows signs of volume overload and post COVID-19 changes. proBNP 1600. -Procalcitonin negative -S/p Lasix 40 mg IV in the ED, continue Lasix 40 mg IV twice daily -Echo 08/2020-EF 63%, grade 2 diastolic dysfunction, mild aortic stenosis. Update echo. -Strict I's and O's, low Na+ diet, daily weights -Cardiology consult-appreciate input and recommendation -Given negative pro calcitonin, will hold on antibiotics for now -Patient does have wheezing on exam however would avoid steroids in the setting of volume overload. Wheezing likely due to volume overload. Reevaluate after diuresis. -Even better today but is still requiring 6 L of oxygen to maintain saturation -We will continue current dose of Lasix (3) COPD (chronic obstructive pulmonary disease): Plan: COPD is complicating the respiratory failure associated with recent COVID-19 virus infection We will continue bronchodilators (4) History of COVID-19: Plan: Covid is negative this time but is still the chest x-ray showing changes secondary to viral pneumonia (5) Atrial fibrillation: Plan: Rate is controlled INR has been subtherapeutic and Coumadin restarted (6) Tachy-silvestre syndrome: (7) Elevated INR: Plan: -S/p pacemaker -Rhythm controlled on amiodarone, rate controlled on metoprolol -Anticoagulated on Coumadin, INR 8.2. Received vitamin K 5 mg p.o. in ED -Has a small hematoma on left anterior brown however no other signs of bleeding -INR is 4.0 today and Coumadin is on hold -INR is 1.7 as of 04/16/2021 and Coumadin has been restarted (8) Hematoma of leg: Plan: -Small, contained -Patient reports dropping a frozen chicken on her leg -Monitor closely for expansion given supratherapeutic INR (9) DVT prophylaxis: Plan: -On Coumadin with supratherapeutic INR Admission and Anticipated Discharge Date Admission Date: April 14, 2021 Subjective 04/15/2021 The patient was seen and examined in emergency room in the [facility] area She has been feeling much better today Remains weak and lethargic and denies any chest pain and/or palpitation 04/16/2021 The patient was seen and examined in telemetry unit She has been feeling much better Remains weak but denies any chest pain and or palpitation Review of Systems Review of Systems: All systems reviewed and are unremarkable except as noted below Respiratory: Minimal shortness of breath at rest Physical Exam Physical Exam: Lying in bed comfortably Constitutional: well developed, well nourished, + ill appearing and + obese Eyes: PERRL, conjunctivae normal, anicteric sclerae ENMT: external ear and nose normal, oropharynx normal Neck: trachea midline, no thyromegaly Respiratory: + respiratory distress (Mild to moderate) Auscultation: + diminished lung sounds and + crackles (All over) Cardiovascular: Rate/Rhythm: regular rate and regular rhythm; not tachycardic Heart Sounds: normal S1 and normal S2; no murmur Extremities: + edema (1+ edema bilaterally) Gastrointestinal (Abdomen): Inspection/Auscultation: normal bowel sounds; abdomen not distended Percussion/Palpation: abdomen soft; abdomen nontender Musculoskeletal: No acute arthritis in any joint Neurologic: Alert, awake and oriented x3. Generally weak Lymphatic: no cervical or axillary lymphadenopathy Results & Data Results & Data ([facility]) Vital Signs (Past 12 Hours) Vital Signs Temp Pulse Pulse Resp BP Pulse Ox 04/16/21 12:07 36.5 C 88 18 106/68 98 04/16/21 11:12 68 18 94 04/16/21 07:58 36.6 C 72 20 109/63 82 L 04/16/21 07:25 60 04/16/21 07:16 68 20 94 04/16/21 03:45 36.9 C 71 19 101/61 94 Laboratory Results Short CBC 04/16/21 Range/Units 06:34 WBC 10.25 (4.8-10.8) K/uL Hgb 11.7 L (12.0-16.0) g/dL Hct 36.7 L (37-47) % Plt Count 428 H (130-400) K/uL BMP 04/16/21 06:34 Sodium 140 Potassium 3.9 D Chloride 102 Carbon Dioxide 32 BUN 12 Creatinine 0.85 Glucose 94 Calcium 8.5 Medications Administered Current Inpatient Medications Acetaminophen (Acetaminophen 325 Mg Tab) 650 mg PO Q4H PRN PRN Reason: Pain or Fever Stop: 05/14/21 22:01 Last Admin: 04/15/21 09:55 Dose: 650 mg Documented by: Albuterol (Albut/Ipratrop 3mg/0.5mg Neb 3 Ml Vial) 3 ml NEB Q4R PRN; Protocol PRN Reason: Shortness Of Breath Or Wheezing Stop: 05/14/21 22:01 Amiodarone HCl (Amiodarone 200 Mg Tab) 200 mg PO [facility] Stop: 05/14/21 22:01 Last Admin: 04/15/21 19:46 Dose: 200 mg Documented by: Famotidine (Famotidine 20 Mg Tab) 20 mg PO QAM [facility] Stop: 05/15/21 08:59 Last Admin: 04/16/21 09:48 Dose: 20 mg Documented by: Furosemide (Furosemide 40 Mg/4 Ml Vial) 40 mg IV BID17 [facility] Stop: 05/15/21 08:59 Last Admin: 04/16/21 09:50 Dose: 40 mg Documented by: Levothyroxine Sodium (Levothyroxine Sodium 50 Mcg Tablet) 50 mcg PO DAILYBB [facility] Stop: 05/15/21 06:29 Last Admin: 04/16/21 05:45 Dose: 50 mcg Documented by: Metoprolol Succinate (Metoprolol Succ 25mg Ext Rel Tab) 25 mg PO HS [facility] Stop: 05/14/21 22:01 Last Admin: 04/15/21 19:46 Dose: 25 mg Documented by: Pantoprazole Sodium (Pantoprazole 40 Mg Tab) 40 mg PO DAILY [facility] Stop: 05/15/21 08:59 Last Admin: 04/16/21 09:48 Dose: 40 mg Documented by: Potassium Chloride (Potassium Chloride Crtab 20 Meq Tabcr) 20 meq PO DAILY [facility] Stop: 05/15/21 08:59 Last Admin: 04/16/21 09:48 Dose: 20 meq Documented by: Umeclidinium/Vilanterol (Umeclidinium/Vilanterol 62.5/25mcg 7 Puffs/Inhaler) 1 puffs INH QAM [facility] Stop: 05/15/21 08:59 Last Admin: 04/16/21 09:49 Dose: 1 puffs Documented by:
[2021-04-16] MEDS: ACETAMINOPHEN 325 MG TAB PO PRN (21:53)
[2021-04-16] MEDS: METOPROLOL SUCC 25MG EXT REL TAB PO SCH (21:57)
[2021-04-16] MEDS: AMIODARONE 200 MG TAB PO SCH (21:57)
[2021-04-17] MEDS: LEVOTHYROXINE SODIUM 50 MCG TABLET PO SCH (06:23)
[2021-04-17 07:38] LABS: BUN Creatinine Ratio 15.7 (10-20); Calcium 8.7 mg/dl (8.5-10.1); Creatinine Clr Calc Pharmacy 65.5 ml/min; Est GFR (African American) 91.7 ml/min; Est GFR (Non-African American) 79.1 ml/min; Magnesium 2.1 mg/dl (1.8-2.4); Potassium 3.9 mmol/L (3.5-5.1)
[2021-04-17 07:39] LABS: Phosphorus 3.6 mg/dl (2.5-4.9)
[2021-04-17 07:46] LABS: INR 1.3 (0.9-1.1); Prothrombin Time 13.2 Seconds (9.0-12.0)
[2021-04-17] MEDS: UMECLIDINIUM/VILANTEROL 62.5/25MCG 7 PUFFS/INHALER INH SCH (08:16)
[2021-04-17] MEDS: FAMOTIDINE 20 MG TAB PO SCH (08:16)
[2021-04-17] MEDS: PANTOprazole 40 MG TAB PO SCH (08:16)
[2021-04-17] MEDS: POTASSIUM CHLORIDE CRTAB 20 MEQ TABCR PO SCH (08:33)
[2021-04-17] MEDS: FUROSEMIDE 40 MG/4 ML VIAL IV SCH ×2 (08:33→17:19)
--- NOTE | 2021-04-17 11:59 | Hospitalist Progress Note ---
Date of Service April 17, 2021 Assessment & Plan (1) Acute on chronic respiratory failure with hypoxia: Plan: Management as below (2) Acute on chronic diastolic CHF (congestive heart failure): Plan: -Patient presenting from home with reports of worsening shortness of breath, lower extremity edema, weight gain for the past few weeks. Admitted 03/13 through 03/26 for COVID-19 pneumonia. Discharged home on 2 L of oxygen. Seen in the cardiology clinic on 04/08 and was instructed to increase Lasix to 40 mg daily for acute diastolic CHF. Patient admits to some medication noncompliance. Home health noted patient to be hypoxic with ambulation on 2 L of oxygen, was requiring 4 L of oxygen to maintain saturation. -In the ED, CXR shows signs of volume overload and post COVID-19 changes. proBNP 1600. -Procalcitonin negative -S/p Lasix 40 mg IV in the ED, continue Lasix 40 mg IV twice daily -Echo 08/2020-EF 63%, grade 2 diastolic dysfunction, mild aortic stenosis. Update echo. -Strict I's and O's, low Na+ diet, daily weights -Cardiology consult-appreciate input and recommendation -Given negative pro calcitonin, will hold on antibiotics for now -Patient does have wheezing on exam however would avoid steroids in the setting of volume overload. Wheezing likely due to volume overload. Reevaluate after diuresis. -Even better today but is still requiring 6 L of oxygen to maintain saturation -Still complains to have shortness of breath at rest and with exertion and she is requiring 4 L of oxygen to maintain saturation -We will continue current dose of Lasix (3) COPD (chronic obstructive pulmonary disease): Plan: COPD is complicating the respiratory failure associated with recent COVID-19 virus infection We will continue bronchodilators (4) History of COVID-19: Plan: Covid is negative this time but is still the chest x-ray showing changes secon noah to viral pneumonia (5) Atrial fibrillation: Plan: Rate is controlled INR has been subtherapeutic and Coumadin restarted (6) Tachy-silvestre syndrome: (7) Elevated INR: Plan: -S/p pacemaker -Rhythm controlled on amiodarone, rate controlled on metoprolol -Anticoagulated on Coumadin, INR 8.2. Received vitamin K 5 mg p.o. in ED -Has a small hematoma on left anterior brown however no other signs of bleeding -INR is 4.0 today and Coumadin is on hold -INR is 1.7 as of 04/16/2021 and Coumadin has been restarted (8) Hematoma of leg: Plan: -Small, contained -Patient reports dropping a frozen chicken on her leg -Monitor closely for expansion given supratherapeutic INR (9) DVT prophylaxis: Plan: -On Coumadin with supratherapeutic INR Admission and Anticipated Discharge Date Admission Date: April 14, 2021 Subjective 04/15/2021 The patient was seen and examined in emergency room in the [facility] area She has been feeling much better today Remains weak and lethargic and denies any chest pain and/or palpitation 04/16/2021 The patient was seen and examined in telemetry unit She has been feeling much better Remains weak but denies any chest pain and or palpitation 04/17/2021 The patient was seen and examined in telemetry unit She complains today of shortness of breath with minimal exertion Denies any chest pain and/or palpitation Review of Systems 2 Review of Systems: All systems reviewed and are unremarkable except as noted below Respiratory: Minimal shortness of breath at rest Physical Exam Physical Exam: Lying in bed comfortably with minimal shortness of breath though Constitutional: well developed, well nourished, + ill appearing and + obese Eyes: PERRL, conjunctivae normal, anicteric sclerae ENMT: external ear and nose normal, oropharynx normal Neck: trachea midline, no thyromegaly Respiratory: + respiratory distress (Mild to moderate) Auscultation: + diminished lung sounds and + crackles (All over) Cardiovascular: Rate/Rhythm: regular rate and regular rhythm; not tachycardic Heart Sounds: normal S1 and normal S2; no murmur Extremities: + edema (1+ e christie bilaterally) Gastrointestinal (Abdomen): Inspection/Auscultation: normal bowel sounds; abdomen not distended Percussion/Palpation: abdomen soft; abdomen nontender Musculoskeletal: No acute arthritis in any joint Neurologic: Alert, awake and oriented x3, she is very weak generally Lymphatic: no cervical or axillary lymphadenopathy Results & Data Results & Data ([facility]) Vital Signs (Past 12 Hours) Vital Signs Temp Pulse Pulse Resp BP Pulse Ox 04/17/21 11:47 36.8 C 65 18 116/72 95 01/08/22 07:17 36.5 C 77 16 118/70 94 04/17/21 06:46 67 04/17/21 03:55 36.5 C 67 18 101/66 97 Laboratory Results [facility] 04/17/21 06:14 Sodium 140 Potassium 3.9 Chloride 102 Carbon Dioxide 34 H BUN 12 Creatinine 0.75 Glucose 92 Calcium 8.7 Medications Administered Current Inpatient Medications Acetaminophen (Acetaminophen 325 Mg Tab) 650 mg PO Q4H PRN PRN Reason: Pain or Fever Stop: 05/14/21 22:01 Last Admin: 04/16/21 21:53 Dose: 650 mg Documented by: Albuterol (Albut/Ipratrop 3mg/0.5mg Neb 3 Ml Vial) 3 ml NEB Q4R PRN; Protocol PRN Reason: Shortness Of Breath Or Wheezing Stop: 05/14/21 22:01 Amiodarone HCl (Amiodarone 200 Mg Tab) 200 mg PO [facility] Stop: 05/14/21 22:01 Last Admin: 04/16/21 21:57 Dose: 200 mg Documented by: Famotidine (Famotidine 20 Mg Tab) 20 mg PO QAM [facility] Stop: 05/15/21 08:59 Last Admin: 04/17/21 08:16 Dose: 20 mg Documented by: Furosemide (Furosemide 40 Mg/4 Ml Vial) 40 mg IV BID17 [facility] Stop: 05/15/21 08:59 Last Admin: 04/17/21 08:33 Dose: 40 mg Documented by: Levothyroxine Sodium (Levothyroxine Sodium 50 Mcg Tablet) 50 mcg PO DAILYBB [facility] Stop: 05/15/21 06:29 Last Admin: 04/17/21 06:23 Dose: 50 mcg Documented by: Metoprolol Succinate (Metoprolol Succ 25mg Ext Rel Tab) 25 mg PO [facility] Stop: 05/14/21 22:01 Last Admin: 04/16/21 21:57 Dose: 25 mg Documented by: Pantoprazole Sodium (Pantoprazole 40 Mg Tab) 40 mg PO DAILY [facility] Stop: 05/15/21 08:59 Last Admin: 04/17/21 08:16 Dose: 40 mg Documented by: Potassium Chloride (Potassium Chloride Crtab 20 Meq Tabcr) 20 meq PO DAILY [facility] Stop: 05/15/21 08:59 Last Admin: 04/17/21 08:33 Dose: 20 meq Documented by: Umeclidinium/Vilanterol (Umeclidinium/Vilanterol 62.5/25mcg 7 Puffs/Inhaler) 1 puffs INH QAM [facility] Stop: 05/15/21 08:59 Last Admin: 04/17/21 08:16 Dose: 1 puffs Documented by:
--- NOTE | 2021-04-17 14:11 | Cardiology Progress Note ---
Date of Service April 17, 2021 Assessment & Plan (1) Acute on chronic respiratory failure with hypoxia: (2) Acute on chronic diastolic CHF (congestive heart failure): (3) History of COVID-19: (4) Paroxysmal atrial fibrillation: Plan: Continue intravenous furosemide 40 mg twice daily. Follow daily weight, fluid balance, GFR, and electrolytes. Fluid restrict 1500 cc, supplement potassium as indicated. INR subtherapeutic, 1.3 today. INR elevated on presentation. Dose Coumadin for goal INR of 2.0-3.0. Chronic amiodarone therapy for rhythm control. Respiratory insufficiency likely secondary to COVID-19 infection and diastolic heart failure however, discontinue of amiodarone may be considered pending clinical course. Admission and Anticipated Discharge Date Admission Date: April 14, 2021 Subjective Patient seen and examined at the bedside. Respiratory status marginally improved this morning. Reports worsening shortness of breath overnight requiring titration of oxygen to 6 L nasal cannula. Currently back down to 4 L (outpatient dose). No orthopnea or PND. Edema noted on admission has resolved. Denies chest pain or palpitations. Telemetry demonstrates atrial pacing at 60 bpm and sinus rhythm. Review of Systems Review of Systems: All systems reviewed & are unremarkable except as noted in Subjective Physical Exam Constitutional: well developed and well nourished; no acute distress Respiratory: normal respiratory effort; no respiratory distress, no labored breathing and no retractions Auscultation: no crackles, no rales, no rhonchi and no wheezes Cardiovascular: Rate/Rhythm: regular rate and regular rhythm Heart Sounds: normal S1 and normal S2; no murmur Extremities: no edema Gastrointestinal (Abdomen): Inspection/Auscultation: abdomen normal to inspection and normal bowel sounds; abdomen not distended Percussion/Palpation: abdomen soft; abdomen nontender, no guarding and abdomen not rigid Neurologic: CN's II-XI intact bilaterally and moves all extremities; no focal motor deficits Motor/Sensory: no tremor Psychiatric: A+Ox3, euthymic affect Results & Data ([facility]) Vital Signs (Past 12 Hours) Vital Signs Temp Pulse Pulse Resp BP Pulse Ox 04/17/21 11:47 36.8 C 65 18 116/72 95 04/17/21 07:17 36.5 C 77 16 118/70 94 04/17/21 06:46 67 04/17/21 03:55 36.5 C 67 18 101/66 97
[2021-04-17] MEDS: WARFARIN SOD 2 MG TAB PO SCH (17:19)
[2021-04-17] MEDS: AMOXICILLIN 500 MG CAP PO SCH (20:04)
[2021-04-17] MEDS: METOPROLOL SUCC 25MG EXT REL TAB PO SCH (20:05)
[2021-04-17] MEDS: AMIODARONE 200 MG TAB PO SCH (20:05)
[2021-04-17] MEDS ORDERED: AMOXICILLIN 500 MG CAP PO SCH (21:00)
[2021-04-18] MEDS: LEVOTHYROXINE SODIUM 50 MCG TABLET PO SCH (05:59)
[2021-04-18 07:20] LABS: BUN Creatinine Ratio 20.6 (10-20); Calcium 8.3 mg/dl (8.5-10.1); Creatinine Clr Calc Pharmacy 60.5 ml/min; Est GFR (African American) 86.1 ml/min; Est GFR (Non-African American) 74.3 ml/min; Magnesium 2.2 mg/dl (1.8-2.4); Potassium 4.2 mmol/L (3.5-5.1)
[2021-04-18 07:21] LABS: INR 1.3 (0.9-1.1); Prothrombin Time 12.7 Seconds (9.0-12.0)
[2021-04-18] MEDS: PANTOprazole 40 MG TAB PO SCH (09:11)
[2021-04-18] MEDS: UMECLIDINIUM/VILANTEROL 62.5/25MCG 7 PUFFS/INHALER INH SCH (09:12)
[2021-04-18] MEDS: AMOXICILLIN 500 MG CAP PO SCH ×3 (09:12→20:51)
[2021-04-18] MEDS: FAMOTIDINE 20 MG TAB PO SCH (09:12)
[2021-04-18] MEDS: POTASSIUM CHLORIDE CRTAB 20 MEQ TABCR PO SCH (09:13)
[2021-04-18] MEDS: FUROSEMIDE 40 MG/4 ML VIAL IV SCH ×2 (09:14→17:03)
--- NOTE | 2021-04-18 13:09 | Hospitalist Progress Note ---
Date of Service April 18, 2021 Assessment & Plan (1) Acute on chronic respiratory failure with hypoxia: Plan: Management as below (2) Acute on chronic diastolic CHF (congestive heart failure): Plan: -Patient presenting from home with reports of worsening shortness of breath, lower extremity edema, weight gain for the past few weeks. Admitted 03/13 through 03/26 for COVID-19 pneumonia. Discharged home on 2 L of oxygen. Seen in the cardiology clinic on 04/08 and was instructed to increase Lasix to 40 mg daily for acute diastolic CHF. Patient admits to some medication noncompliance. Home health noted patient to be hypoxic with ambulation on 2 L of oxygen, was requiring 4 L of oxygen to maintain saturation. -In the ED, CXR shows signs of volume overload and post COVID-19 changes. proBNP 1600. -Procalcitonin negative -S/p Lasix 40 mg IV in the ED, continue Lasix 40 mg IV twice daily -Echo 08/2020-EF 63%, grade 2 diastolic dysfunction, mild aortic stenosis. Update echo. -Strict I's and O's, low Na+ diet, daily weights -Cardiology consult-appreciate input and recommendation -Given negative pro calcitonin, will hold on antibiotics for now -Patient does have wheezing on exam however would avoid steroids in the setting of volume overload. Wheezing likely due to volume overload. Reevaluate after diuresis. -Even better today but is still requiring 6 L of oxygen to maintain saturation -Still complains to have shortness of breath at rest and with exertion and she is requiring 4 L of oxygen to maintain saturation -We will continue current dose of Lasix -She has been diuresing reasonably -Clinically much better and has been requiring 2 to 4 L of oxygen to maintain saturation -We will get PT and OT evaluation and possible discharge tomorrow-she wants to go to [facility] (3) COPD (chronic obstructive pulmonary disease): Plan: COPD is complicating the respiratory failure associated with recent COVID-19 virus infection We will continue bronchodilators -Clinically much better and has been requiring 2 to 4 L of oxygen to maintain saturation -We will get PT and OT evaluation and possible discharge tomorrow-she wants to go to [facility] (4) History of COVID-19: Plan: Covid is negative this time but is still the chest x-ray showing changes secondary to viral pneumonia (5) Atrial fibrillation: Plan: Rate is controlled INR has been subtherapeutic and Coumadin restarted INR is 1.3-we will give additional dose of Coumadin tonight (6) Tachy-silvestre syndrome: (7) Elevated INR: Plan: -S/p pacemaker -Rhythm controlled on amiodarone, rate controlled on metoprolol -Anticoagulated on Coumadin, INR 8.2. Received vitamin K 5 mg p.o. in ED -Has a small hematoma on left anterior brown however no other signs of bleeding -INR is 4.0 today and Coumadin is on hold -INR is 1.7 as of 04/16/2021 and Coumadin has been restarted -INR is 1.3 as of 04/18/2021, will give additional dose of Coumadin today (8) Hematoma of leg: Plan: -Small, contained -Patient reports dropping a frozen chicken on her leg -Monitor closely for expansion given supratherapeutic INR (9) DVT prophylaxis: Plan: -On Coumadin with supratherapeutic INR Admission and Anticipated Discharge Date Admission Date: April 14, 2021 Subjective 04/15/2021 The patient was seen and examined in emergency room in the holding area She has been feeling much better today Remains weak and lethargic and denies any chest pain and/or palpitation 04/16/2021 The patient was seen and examined in telemetry unit She has been feeling much better Remains weak but denies any chest pain and or palpitation 04/17/2021 The patient was seen and examined in telemetry unit She complains today of shortness of breath with minimal exertion Denies any chest pain and/or palpitation 04/18/2021 The patient was seen and examined in telemetry unit She has had a rough night yesterday Has been feeling much better following her hair done Denies any shortness of breath at rest Review of Systems Review of Systems: All systems reviewed and are unremarkable except as noted below Respiratory: Minimal shortness of breath at rest Physical Exam Physical Exam: Lying in bed comfortably with minimal shortness of breath though Constitutional: well developed, well nourished, + ill appearing and + obese Eyes: PERRL, conjunctivae normal, anicteric sclerae ENMT: external ear and nose normal, oropharynx normal Neck: trachea midline, no thyromegaly Respiratory: + respiratory distress (Mild to moderate) Auscultation: + diminished lung sounds and + crackles (All over) Cardiovascular: Rate/Rhythm: regular rate and regular rhythm; not tachycardic Heart Sounds: normal S1 and normal S2; no murmur Extremities: + edema (1+ edema bilaterally) Gastrointestinal (Abdomen): Inspection/Auscultation: normal bowel sounds; abdomen not distended Percussion/Palpation: abdomen soft; abdomen nontender Musculoskeletal: No acute arthritis in any joint Neurologic: Alert, awake and oriented x3. No focal sensory and motor deficit appreciated Lymphatic: no cervical or axillary lymphadenopathy Results & Data Results & Data ([facility]) Vital Signs (Past 12 Hours) Vital Signs Temp Pulse Resp BP Pulse Ox 04/18/21 11:55 36.9 C 72 17 109/73 93 04/18/21 08:39 36.7 C 63 15 113/72 98 04/18/21 03:13 36.4 C L 62 16 114/72 94 Laboratory Results [facility] 04/18/21 06:32 Sodium 137 Potassium 4.2 Chloride 100 Carbon Dioxide 32 BUN 16 Creatinine 0.79 Glucose 101 H Calcium 8.3 L Medications Administered Current Inpatient Medications Acetaminophen (Acetaminophen 325 Mg Tab) 650 mg PO Q4H PRN PRN Reason: Pain or Fever Stop: 05/14/21 22:01 Last Admin: 04/16/21 21:53 Dose: 650 mg Documented by: Albuterol (Albut/Ipratrop 3mg/0.5mg Neb 3 Ml Vial) 3 ml NEB Q4R PRN; Protocol PRN Reason: Shortness Of Breath Or Wheezing Stop: 05/14/21 22:01 Amiodarone HCl (Amiodarone 200 Mg Tab) 200 mg PO HS [facility] Stop: 05/14/21 22:01 Last Admin: 04/17/21 20:05 Dose: 200 mg Documented by: Amoxicillin (Amoxicillin 500 Mg Cap) 500 mg PO TID [facility] Stop: 04/22/21 20:59 Last Admin: 04/18/21 09:12 Dose: 500 mg Documented by: Famotidine (Famotidine 20 Mg Tab) 20 mg PO QAM [facility] Stop: 05/15/21 08:59 Last Admin: 04/18/21 09:12 Dose: 20 mg Documented by: Furosemide (Furosemide 40 Mg/4 Ml Vial) 40 mg IV BID17 [facility] Stop: 05/15/21 08:59 Last Admin: 04/18/21 09:14 Dose: 40 mg Documented by: Levothyroxine Sodium (Levothyroxine Sodium 50 Mcg Tablet) 50 mcg PO DAILYBB [facility] Stop: 05/15/21 06:29 Last Admin: 04/18/21 05:59 Dose: 50 mcg Documented by: Metoprolol Succinate (Metoprolol Succ 25mg Ext Rel Tab) 25 mg PO HS [facility] Stop: 05/14/21 22:01 Last Admin: 04/17/21 20:05 Dose: 25 mg Documented by: Pantoprazole Sodium (Pantoprazole 40 Mg Tab) 40 mg PO DAILY [facility] Stop: 05/15/21 08:59 Last Admin: 04/18/21 09:11 Dose: 40 mg Documented by: Potassium Chloride (Potassium Chloride Crtab 20 Meq Tabcr) 20 meq PO DAILY [facility] Stop: 05/15/21 08:59 Last Admin: 04/18/21 09:13 Dose: 20 meq Documented by: Umeclidinium/Vilanterol (Umeclidinium/Vilanterol 62.5/25mcg 7 Puffs/Inhaler) 1 puffs INH QAM [facility] Stop: 05/15/21 08:59 Last Admin: 04/18/21 09:12 Dose: 1 puffs Documented by: Warfarin Sodium (Warfarin Sod 2 Mg Tab) 2 mg PO [id number]@1600 [facility] Stop: 05/17/21 15:59 Last Admin: 04/17/21 17:19 Dose: 2 mg Documented by: Warfarin Sodium (Warfarin Sod 1 Mg Tab) 1 mg PO [email or web address]@1600 [facility] Stop: 05/19/21 15:59
--- NOTE | 2021-04-18 14:16 | Cardiology Progress Note ---
Date of Service April 18, 2021 Assessment & Plan (1) Acute on chronic respiratory failure with hypoxia: (2) Acute on chronic diastolic CHF (congestive heart failure): (3) History of COVID-19: (4) Paroxysmal atrial fibrillation: Plan: Continue intravenous furosemide 40 mg twice daily. Transition to oral diuretic therapy (furosemide 40 mg daily) in a.m. Follow daily weight, fluid balance, GFR, and electrolytes. Fluid restrict 1500 cc, supplement potassium as indicated. INR subtherapeutic, 1.3 today. INR elevated on presentation. Dose Coumadin for goal INR of 2.0-3.0. Chronic amiodarone therapy for rhythm control. Respiratory insufficiency likely secondary to COVID-19 infection and diastolic heart failure however, discontinuation of amiodarone may be considered pending clinical course. Admission and Anticipated Discharge Date Admission Date: April 14, 2021 Subjective Patient seen and examined at the bedside. No significant clinical change overnight. Remains on 4 L of supplemental oxygen. Fluid balance -630 cc. Creatinine remained stable. Telemetry reveals atrial paced rhythm at 60 bpm. Denies orthopnea or PND. Cough unchanged. No sputum production. Review of Systems Review of Systems: All systems reviewed & are unremarkable except as noted in Subjective Physical Exam Constitutional: well developed and well nourished; no acute distress Respiratory: normal respiratory effort; no respiratory distress, no labored breathing and no retractions Auscultation: no crackles, no rales, no rhonchi and no wheezes Cardiovascular: Rate/Rhythm: regular rate and regular rhythm Heart Sounds: normal S1 and normal S2; no murmur Extremities: no edema Gastrointestinal (Abdomen): Inspection/Auscultation: abdomen normal to inspection and normal bowel sounds; abdomen not distended Percussion/Palpation: abdomen soft; abdomen nontender, no guarding and abdomen not rigid Neurologic: CN's II-XI intact bilaterally and moves all extremities; no focal motor deficits Motor/Sensory: no tremor Psychiatric: A+Ox3, euthymic affect Results & Data ([facility]) Vital Signs (Past 12 Hours) Vital Signs Temp Pulse Resp BP Pulse Ox 04/18/21 11:55 36.9 C 72 17 109/73 93 04/18/21 08:39 36.7 C 63 15 113/72 98 04/18/21 03:13 36.4 C L 62 16 114/72 94
[2021-04-18] MEDS ORDERED: WARFARIN SOD 2.5 MG TAB PO ONE (16:00)
[2021-04-18] MEDS: WARFARIN SOD 2 MG TAB PO SCH (17:04)
[2021-04-18] MEDS: AMIODARONE 200 MG TAB PO SCH (20:51)
[2021-04-18] MEDS: METOPROLOL SUCC 25MG EXT REL TAB PO SCH (20:51)
[2021-04-19] MEDS: LEVOTHYROXINE SODIUM 50 MCG TABLET PO SCH (06:03)
[2021-04-19 07:17] LABS: INR 1.6 (0.9-1.1); Prothrombin Time 15.8 Seconds (9.0-12.0)
[2021-04-19 07:28] LABS: BUN Creatinine Ratio 17.4 (10-20); Calcium 9.3 mg/dl (8.5-10.1); Creatinine Clr Calc Pharmacy 50.5 ml/min; Est GFR (African American) 67.2 ml/min; Est GFR (Non-African American) 57.9 ml/min; Magnesium 2.4 mg/dl (1.8-2.4); Potassium 4.4 mmol/L (3.5-5.1)
[2021-04-19] MEDS: AMOXICILLIN 500 MG CAP PO SCH ×3 (07:49→20:12)
[2021-04-19] MEDS: PANTOprazole 40 MG TAB PO SCH (07:49)
[2021-04-19] MEDS: FAMOTIDINE 20 MG TAB PO SCH (07:49)
[2021-04-19] MEDS: UMECLIDINIUM/VILANTEROL 62.5/25MCG 7 PUFFS/INHALER INH SCH (07:50)
[2021-04-19] MEDS: FUROSEMIDE 40 MG/4 ML VIAL IV SCH ×2 (07:52→16:18)
[2021-04-19] MEDS: POTASSIUM CHLORIDE CRTAB 20 MEQ TABCR PO SCH (07:52)
--- NOTE | 2021-04-19 10:00 | Cardiology Progress Note ---
Date of Service April 19, 2021 Assessment & Plan (1) Acute on chronic respiratory failure with hypoxia: (2) Acute on chronic diastolic CHF (congestive heart failure): (3) History of COVID-19: (4) Paroxysmal atrial fibrillation: Plan: Discontinue IV furosemide after the second dose today. Initiate oral diuretic therapy, furosemide 40 mg daily in the AM of 04/20/2021 INR subtherapeutic. Dose Coumadin for goal INR of 2.0-3.0. Note: Respiratory insufficiency likely secondary to COVID-19 infection and diastolic heart failure. Continue amiodarone for now, pending clinical course. Admission and Anticipated Discharge Date Admission Date: April 14, 2021 Supervising Physician Co-Signing Physician Notes Supervising Physician Attestation: I have personally performed a history and physical examination on the patient. I agree with the physician permit review assistant's findings and plan as documented with the following additions. Subjective: Patient feeling comfortable currently on 4 L nasal cannula, pulse oximetry 96%. She recounts that when her oxygen supplementation was reduced to 2 L/min, she has difficulty breathing. Chest x-ray performed today reveals mild improvement. Exam: Mildly decreased breath sounds at the bases Data: INR 1.6 Assessment and Plan: Multifactorial respiratory insufficiency with recovering SARS-CoV-2 pneumonia, diastolic dysfunction -Convert to IV diuretic. -Continue Coumadin for goal INR 2-3 DVT prophylaxis: Patient is on Coumadin Main Almeida DO Subjective Patient seen and examined. Chart, medications, and telemetry reviewed. Feeling better overall. Ongoing shortness of breath and cough productive of clear mucous. No chest pain. No palpitations. No PND. No peripheral edema. Telemetry: Paced in the 60's. I's/O's: Negative 5,515 mL's overall INR 1.6. Review of Systems Review of Systems: Complete Review of Systems is as stated above, negative, or noncontributory. Physical Exam Physical Exam: General: A&Ox3. NAD. HENT: Normocephalic. Atraumatic. Eyes: PER. Conjunctiva pink, sclera clear. Neck: Bilateral carotid bruits (versus transmitted systolic murmur). No JVD. Heart: Regular at 60 bpm. Grade II/ systolic ejection murmur. PMI is nondisplaced. Lungs: Absent breath sounds at the bases. Right lower lobe rales. No wheeze. No rhonchi. Abdomen: +BS. Soft. Nontender. No masses or organomegaly. Extremities: No peripheral edema. There is a 6 cm hematoma on the distal left brown. No clubbing. No cyanosis. Limited neurological examination is without focal deficits. Pulses: radial=2/4, posterior tibial=0/4. Results & Data ([facility]) Vital Signs (Past 12 Hours) Vital Signs Temp Pulse Pulse Resp BP Pulse Ox Pulse Ox 04/19/21 07:14 36.6 C 63 19 127/72 98 04/19/21 07:09 60 04/19/21 03:53 36.6 C 66 16 112/72 99 04/19/21 00:02 36.7 C 59 L 16 121/74 96 04/18/21 22:00 96 Laboratory Results Laboratory Results - last 24 hr 04/19/21 04/19/21 06:41 06:41 PT 15.8 H INR 1.6 H Sodium 135 L Potassium 4.4 Chloride 98 Carbon Dioxide 33 H Anion Gap 4.0 BUN 17 Creatinine 0.97 Est Cr Clr Drug Dosing 50.5 Est GFR ( Amer) 67.2 Est GFR (Non-Af Amer) 57.9 BUN/Creatinine Ratio 17.4 Glucose 98 Calcium 9.3 Magnesium 2.4
--- NOTE | 2021-04-19 13:44 | XRay Report ---
XR chest 2V PA/lateral CLINICAL HISTORY: recent covid, off precautions. Follow-up alveolar opacities. COMPARISON STUDY: 04/14/2021 TECHNIQUE: 2 views of the chest FINDINGS: Frontal and lateral radiographs of the chest demonstrate the cardiomediastinal silhouette to be withi n normal limits. Cardiac pacer is again seen. Compared to previous examination, there has been partia l interval resolution of patchy interstitial and alveolar opacities bilaterally. There is no evidence for effusion bilaterally. There is no evidence for vascular congestion. There is no acute osseous pa thology. IMPRESSION: Partial interval resolution of patchy interstitial and alveolar opacities bilaterally. ACT 112: Negative or not required by law. Electronically signed by: Aung Gonzalez M.D. 04/19/2021 1:43 PM
[2021-04-19] MEDS ORDERED: WARFARIN SOD 1 MG TAB PO SCH (16:00)
--- NOTE | 2021-04-19 16:47 | Hospitalist Progress Note ---
Date of Service April 19, 2021 Assessment & Plan (1) Acute on chronic respiratory failure with hypoxia: Plan: Management as below (2) Acute on chronic diastolic CHF (congestive heart failure): Plan: -Patient presenting from home with reports of worsening shortness of breath, lower extremity edema, weight gain for the past few weeks. Admitted 03/13 through 03/26 for COVID-19 pneumonia. Discharged home on 2 L of oxygen. Seen in the cardiology clinic on 04/08 and was instructed to increase Lasix to 40 mg daily for acute diastolic CHF. Patient admits to some medication noncompliance. Home health noted patient to be hypoxic with ambulation on 2 L of oxygen, was requiring 4 L of oxygen to maintain saturation. -In the ED, CXR shows signs of volume overload and post COVID-19 changes. proBNP 1600. -Procalcitonin negative -S/p Lasix 40 mg IV in the ED, continue Lasix 40 mg IV twice daily -Echo 08/2020-EF 63%, grade 2 diastolic dysfunction, mild aortic stenosis. Update echo. -Strict I's and O's, low Na+ diet, daily weights -Cardiology consult-appreciate input and recommendation -Given negative pro calcitonin, will hold on antibiotics for now -Patient does have wheezing on exam however would avoid steroids in the setting of volume overload. Wheezing likely due to volume overload. Reevaluate after diuresis. -Even better today but is still requiring 6 L of oxygen to maintain saturation -Still complains to have shortness of breath at rest and with exertion and she is requiring 4 L of oxygen to maintain saturation -We will continue current dose of Lasix -She has been diuresing reasonably -Clinically much better and has been requiring 2 to 4 L of oxygen to maintain saturation -We will get PT and OT evaluation and possible discharge tomorrow-she wants to go to [facility] -Awaiting placement and clinically much better -We will discontinue intravenous Lasix and will start with oral Lasix as before from tomorrow morning (3) COPD (chronic obstructive pulmonary disease): Plan: COPD is complicating the respiratory failure associated with recent COVID-19 virus infection We will continue bronchodilators -Clinically much better and has been requiring 2 to 4 L of oxygen to maintain saturation -We will get PT and OT evaluation and possible discharge tomorrow-she wants to go to [facility] -Clinically much better (4) History of COVID-19: Plan: Covid is negative this time but is still the chest x-ray showing changes secondary to viral pneumonia (5) Atrial fibrillation: Plan: Rate is controlled INR has been subtherapeutic and Coumadin restarted INR is 1.3-we will give additional dose of Coumadin tonight INR is 1.6 as of 04/19/2021 (6) Tachy-silvestre syndrome: (7) Elevated INR: Plan: -S/p pacemaker -Rhythm controlled on amiodarone, rate controlled on metoprolol -Anticoagulated on Coumadin, INR 8.2. Received vitamin K 5 mg p.o. in ED -Has a small hematoma on left anterior brown however no other signs of bleeding -INR is 4.0 today and Coumadin is on hold -INR is 1.7 as of 04/16/2021 and Coumadin has been restarted -INR is 1.3 as of 04/18/2021, will give additional dose of Coumadin today -INR is 1.6 as of 04/19/2021 (8) Hematoma of leg: Plan: -Small, contained -Patient reports dropping a frozen chicken on her leg -Monitor closely for expansion given supratherapeutic INR (9) DVT prophylaxis: Plan: -On Coumadin with supratherapeutic INR Admission and Anticipated Discharge Date Admission Date: April 14, 2021 Subjective 04/15/2021 The patient was seen and examined in emergency room in the [facility] area She has been feeling much better today Remains weak and lethargic and denies any chest pain and/or palpitation 04/16/2021 The patient was seen and examined in telemetry unit She has been feeling much better Remains weak but denies any chest pain and or palpitation 04/17/2021 The patient was seen and examined in telemetry unit She complains today of shortness of breath with minimal exertion Denies any chest pain and/or palpitation 04/18/2021 The patient was seen and examined in telemetry unit She has had a rough night yesterday Has been feeling much better following her hair done Denies any shortness of breath at rest 04/19/2021 The patient was seen and examined in telemetry unit She has been feeling much better with minimal shortness of breath at rest She wants to be discharged Review of Systems Review of Systems: All systems reviewed and are unremarkable except as noted below Respiratory: Minimal shortness of breath at rest Physical Exam Physical Exam: Lying in bed comfortably with minimal shortness of breath though Constitutional: well developed, well nourished, + ill appearing and + obese Eyes: PERRL, conjunctivae normal, anicteric sclerae ENMT: external ear and nose normal, oropharynx normal Neck: trachea midline, no thyromegaly Respiratory: + respiratory distress (Mild to moderate) Auscultation: + diminished lung sounds, + crackles (Much improved) and + wheezes (Minimal) Cardiovascular: Rate/Rhythm: regular rate and regular rhythm; not tachycardic Heart Sounds: normal S1 and normal S2; no murmur Extremities: + edema (1+ edema bilaterally) Gastrointestinal (Abdomen): Inspection/Auscultation: normal bowel sounds; abdomen not distended Percussion/Palpation: abdomen soft; abdomen nontender Musculoskeletal: No acute arthritis in any joint Neurologic: Alert, awake and oriented x3 Lymphatic: no cervical or axillary lymphadenopathy Results & Data Results & Data ([facility]) Vital Signs (Past 12 Hours) Vital Signs Temp Pulse Pulse Resp BP Pulse Ox 04/19/21 15:14 71 04/19/21 15:06 36.4 C L 63 16 112/70 98 04/19/21 11:11 36.5 C 60 19 125/76 96 04/19/21 07:14 36.6 C 63 19 127/72 98 04/19/21 07:09 60 Laboratory Results [facility] 04/19/21 06:41 Sodium 135 L Potassium 4.4 Chloride 98 Carbon Dioxide 33 H BUN 17 Creatinine 0.97 Glucose 98 Calcium 9.3 Medications Administered Current Inpatient Medications Acetaminophen (Acetaminophen 325 Mg Tab) 650 mg PO Q4H PRN PRN Reason: Pain or Fever Stop: 05/14/21 22:01 Last Admin: 04/16/21 21:53 Dose: 650 mg Documented by: Albuterol (Albut/Ipratrop 3mg/0.5mg Neb 3 Ml Vial) 3 ml NEB Q4R PRN; Protocol PRN Reason: Shortness Of Breath Or Wheezing Stop: 05/14/21 22:01 Amiodarone HCl (Amiodarone 200 Mg Tab) 200 mg PO HS [facility] Stop: 05/14/21 22:01 Last Admin: 04/18/21 20:51 Dose: 200 mg Documented by: Amoxicillin (Amoxicillin 500 Mg Cap) 500 mg PO TID [facility] Stop: 04/22/21 20:59 Last Admin: 04/19/21 15:34 Dose: 500 mg Documented by: Famotidine (Famotidine 20 Mg Tab) 20 mg PO QAM [facility] Stop: 05/15/21 08:59 Last Admin: 04/19/21 07:49 Dose: 20 mg Documented by: Furosemide (Furosemide 40 Mg/4 Ml Vial) 40 mg IV BID17 [facility] Stop: 04/19/21 23:55 Last Admin: 04/19/21 16:18 Dose: 40 mg Documented by: Furosemide (Furosemide 40 Mg Tab) 40 mg PO QAM [facility] Stop: 05/20/21 08:59 Levothyroxine Sodium (Levothyroxine Sodium 50 Mcg Tablet) 50 mcg PO DAILYBB [facility] Stop: 05/15/21 06:29 Last Admin: 04/19/21 06:03 Dose: 50 mcg Documented by: Metoprolol Succinate (Metoprolol Succ 25mg Ext Rel Tab) 25 mg PO HS [facility] Stop: 05/14/21 22:01 Last Admin: 04/18/21 20:51 Dose: 25 mg Documented by: Pantoprazole Sodium (Pantoprazole 40 Mg Tab) 40 mg PO DAILY [facility] Stop: 05/15/21 08:59 Last Admin: 04/19/21 07:49 Dose: 40 mg Documented by: Potassium Chloride (Potassium Chloride Crtab 20 Meq Tabcr) 20 meq PO DAILY [facility] Stop: 05/15/21 08:59 Last Admin: 04/19/21 07:52 Dose: 20 meq Documented by: Umeclidinium/Vilanterol (Umeclidinium/Vilanterol 62.5/25mcg 7 Puffs/Inhaler) 1 puffs INH QAM [facility] Stop: 05/15/21 08:59 Last Admin: 04/19/21 07:50 Dose: 1 puffs Documented by: Warfarin Sodium (Warfarin Sod 2 Mg Tab) 2 mg PO [email or web address]@1600 [facility] Stop: 05/17/21 15:59 Last Admin: 04/18/21 17:04 Dose: 2 mg Documented by: Warfarin Sodium (Warfarin Sod 1 Mg Tab) 1 mg PO [email or web address] [facility] Stop: 05/19/21 15:59
[2021-04-19] MEDS: METOPROLOL SUCC 25MG EXT REL TAB PO SCH (20:12)
[2021-04-19] MEDS: AMIODARONE 200 MG TAB PO SCH (20:12)
[2021-04-20] MEDS: LEVOTHYROXINE SODIUM 50 MCG TABLET PO SCH (05:37)
[2021-04-20 07:30] LABS: INR 2.1 (0.9-1.1); Prothrombin Time 20.3 Seconds (9.0-12.0)
[2021-04-20 07:49] LABS: BUN Creatinine Ratio 21.1 (10-20); Calcium 9.3 mg/dl (8.5-10.1); Creatinine Clr Calc Pharmacy 57.6 ml/min; Est GFR (African American) 78.8 ml/min; Magnesium 2.4 mg/dl (1.8-2.4); Potassium 4.1 mmol/L (3.5-5.1)
[2021-04-20] MEDS ORDERED: FUROSEMIDE 40 MG TAB PO SCH (09:00)
[2021-04-20] MEDS: PANTOprazole 40 MG TAB PO SCH (09:46)
[2021-04-20] MEDS: FAMOTIDINE 20 MG TAB PO SCH (09:46)
[2021-04-20] MEDS: AMOXICILLIN 500 MG CAP PO SCH ×2 (09:46→13:59)
[2021-04-20] MEDS: POTASSIUM CHLORIDE CRTAB 20 MEQ TABCR PO SCH (09:47)
[2021-04-20] MEDS: UMECLIDINIUM/VILANTEROL 62.5/25MCG 7 PUFFS/INHALER INH SCH (09:47)
--- NOTE | 2021-04-20 10:43 | Cardiology Progress Note ---
Date of Service April 20, 2021 Assessment & Plan (1) Acute on chronic respiratory failure with hypoxia: (2) Acute on chronic diastolic CHF (congestive heart failure): (3) History of COVID-19: (4) Paroxysmal atrial fibrillation: Plan: IV furosemide transitioned to oral furosemide this morning. Increase activity as tolerated. Note: Respiratory insufficiency is likely secondary to COVID-19 infection and diastolic heart failure. Patient is notably on amiodarone, prescribed by EP in September 2017 for symptomatic paroxysmal atrial fibrillation/flutter with RVR. Recommend cautious continuation of amiodarone for now, reconsidering reduction then discontinuation with concurrent titration of metoprolol succinate as an outpatient. Admission and Anticipated Discharge Date Admission Date: April 14, 2021 Supervising Physician Co-Signing Physician Notes Supervising Physician Attestation: I have personally performed a history and physical examination on the patient. I agree with the physician pediatric physical therapy assistant's findings and plan as documented with the following additions. Subjective: SOB improving Exam: No edema Data: INR 2.1 Assessment and Plan: Assessment as noted my M NOBLE De * continue supplemental oxygen * transition to oral diuretics * stable for DC to home from cardiology perspective [place], DO Subjective Patient seen and examined. Chart, medications, and telemetry reviewed. Feeling better overall. Ongoing shortness of breath and cough productive of clear mucous. Requiring 4 L/min of supplemental oxygen. No chest pain. No tachypalpitations. No PND. No peripheral edema. Telemetry: Paced in the 60's with rare PVC. INR 2.1 Review of Systems Review of Systems: Complete Review of Systems is as stated above, negative, or noncontributory. Physical Exam Physical Exam: General: A&Ox3. NAD. HENT: Normocephalic. Atraumatic. Eyes: PER. Conjunctiva pink, sclera clear. Neck: Bilateral carotid bruits (versus transmitted systolic murmur). No JVD. Heart: Regular at 60 bpm. Grade II/ systolic ejection murmur. PMI is nondisplaced. Lungs: Decreased breath sounds at the bases. No wheeze. No rhonchi. No rales. Abdomen: +BS. Soft. Nontender. No masses or organomegaly. Extremities: No peripheral edema. Distal left brown hematoma. No clubbing. No cyanosis. Limited neurological examination is without focal deficits. Pulses: radial=2/4, posterior tibial=0/4. Results & Data ([facility]) Vital Signs (Past 12 Hours) Vital Signs Temp Pulse Pulse Resp BP Pulse Ox 04/20/21 07:15 36.5 C 75 16 114/71 96 04/20/21 02:54 36.8 C 78 20 114/73 93 04/19/21 23:41 70 Laboratory Results Laboratory Results - last 24 hr 04/20/21 04/20/21 06:35 06:35 PT 20.3 H INR 2.1 H Sodium 133 L Potassium 4.1 Chloride 97 L Carbon Dioxide 32 Anion Gap 4.0 BUN 18 Creatinine 0.85 Est Cr Clr Drug Dosing 57.6 Est GFR ( Amer) 78.8 Est GFR (Non-Af Amer) 68.0 BUN/Creatinine Ratio 21.1 H Glucose 100 H Calcium 9.3 Magnesium 2.4 Addendum April 20, 2021 12:06
--- NOTE | 2021-04-20 12:04 | Hospitalist Progress Note ---
Date of Service April 20, 2021 Assessment & Plan (1) Acute on chronic respiratory failure with hypoxia: Plan: Management as below (2) Acute on chronic diastolic CHF (congestive heart failure): Plan: -Patient presenting from home with reports of worsening shortness of breath, lower extremity edema, weight gain for the past few weeks. Admitted 03/13 through 03/26 for COVID-19 pneumonia. Discharged home on 2 L of oxygen. Seen in the cardiology clinic on 04/08 and was instructed to increase Lasix to 40 mg daily for acute diastolic CHF. Patient admits to some medication noncompliance. Home health noted patient to be hypoxic with ambulation on 2 L of oxygen, was requiring 4 L of oxygen to maintain saturation. -In the ED, CXR shows signs of volume overload and post COVID-19 changes. proBNP 1600. -Procalcitonin negative -S/p Lasix 40 mg IV in the ED, continue Lasix 40 mg IV twice daily -Echo 08/2020-EF 63%, grade 2 diastolic dysfunction, mild aortic stenosis. Update echo. -Strict I's and O's, low Na+ diet, daily weights -Cardiology consult-appreciate input and recommendation -Given negative pro calcitonin, will hold on antibiotics for now -Patient does have wheezing on exam however would avoid steroids in the setting of volume overload. Wheezing likely due to volume overload. Reevaluate after diuresis. -Even better today but is still requiring 6 L of oxygen to maintain saturation -Still complains to have shortness of breath at rest and with exertion and she is requiring 4 L of oxygen to maintain saturation -We will continue current dose of Lasix -She has been diuresing reasonably -Clinically much better and has been requiring 2 to 4 L of oxygen to maintain saturation -We will get PT and OT evaluation and possible discharge tomorrow-she wants to go to [facility] -Awaiting placement and clinically much better -We will discontinue intravenous Lasix and will start with oral Lasix as before from tomorrow morning -Clinically much better and she does not want to go to rehab -Remains medically stable to be discharged and she is back on her oral furosemide (3) COPD (chronic obstructive pulmonary disease): Plan: COPD is complicating the respiratory failure associated with recent COVID-19 virus infection We will continue bronchodilators -Clinically much better and has been requiring 2 to 4 L of oxygen to maintain saturation -We will get PT and OT evaluation and possible discharge tomorrow-she wants to go to [facility] -Clinically much better -Denies any more shortness of breath and/or wheezing (4) History of COVID-19: Plan: Covid is negative this time but is still the chest x-ray showing changes secondary to viral pneumonia (5) Atrial fibrillation: Plan: Rate is controlled INR has been subtherapeutic and Coumadin restarted INR is 1.3-we will give additional dose of Coumadin tonight INR is 1.6 as of 04/19/2021 Her INR remains therapeutic (6) Tachy-silvestre syndrome: (7) Elevated INR: Plan: -S/p pacemaker -Rhythm controlled on amiodarone, rate controlled on metoprolol -Anticoagulated on Coumadin, INR 8.2. Received vitamin K 5 mg p.o. in ED -Has a small hematoma on left anterior brown however no other signs of bleeding -INR is 4.0 today and Coumadin is on hold -INR is 1.7 as of 04/16/2021 and Coumadin has been restarted -INR is 1.3 as of 04/18/2021, will give additional dose of Coumadin today -INR is 1.6 as of 04/19/2021-2.1 on 04/20/2021 (8) Hematoma of leg: Plan: -Small, contained -Patient reports dropping a frozen chicken on her leg -Monitor closely for expansion given supratherapeutic INR (9) DVT prophylaxis: Plan: -On Coumadin with supratherapeutic INR Admission and Anticipated Discharge Date Admission Date: April 14, 2021 Subjective 04/15/2021 The patient was seen and examined in emergency room in the [facility] area She has been feeling much better today Remains weak and lethargic and denies any chest pain and/or palpitation 04/16/2021 The patient was seen and examined in telemetry unit She has been feeling much better Remains weak but denies any chest pain and or palpitation 04/17/2021 The patient was seen and examined in telemetry unit She complains today of shortness of breath with minimal exertion Denies any chest pain and/or palpitation 04/18/2021 The patient was seen and examined in telemetry unit She has had a rough night yesterday Has been feeling much better following her hair done Denies any shortness of breath at rest 04/19/2021 The patient was seen and examined in telemetry unit She has been feeling much better with minimal shortness of breath at rest She wants to be discharged 04/20/2021 The patient was seen and examined in telemetry unit She wants to go home She has been feeling much better and is back to her baseline Denies any shortness of breath at rest and no chest pain and/or palpitations Review of Systems Review of Systems: All systems reviewed and are unremarkable except as noted below Respiratory: Minimal shortness of breath at rest Physical Exam Physical Exam: Lying in bed comfortably with minimal shortness of breath though Constitutional: well developed, well nourished, + ill appearing and + obese Eyes: PERRL, conjunctivae normal, anicteric sclerae ENMT: external ear and nose normal, oropharynx normal Neck: trachea midline, no thyromegaly Respiratory: no respiratory distress Auscultation: + diminished lung sounds and + crackles (Much improved); no wheezes (Minimal) Cardiovascular: Rate/Rhythm: regular rate and regular rhythm; not tachycardic Heart Sounds: normal S1 and normal S2; no murmur Extremities: + edema (1+ edema bilaterally) Gastrointestinal (Abdomen): Inspection/Auscultation: normal bowel sounds; abdomen not distended Percussion/Palpation: abdomen soft; abdomen nontender Musculoskeletal: No acute arthritis in any joint Neurologic: Alert, awake and oriented x3. No focal sensory or motor deficit appreciated Lymphatic: no cervical or axillary lymphadenopathy Results & Data Results & Data ([facility]) Vital Signs (Past 12 Hours) Vital Signs Temp Pulse Pulse Resp BP Pulse Ox Pulse Ox 04/20/21 11:20 36.5 C 90 18 148/78 H 90 04/20/21 10:59 60 95 04/20/21 07:15 36.5 C 75 16 114/71 96 04/20/21 02:54 36.8 C 78 20 114/73 93 Laboratory Results [facility] 04/20/21 06:35 Sodium 133 L Potassium 4.1 Chloride 97 L Carbon Dioxide 32 BUN 18 Creatinine 0.85 Glucose 100 H Calcium 9.3 Medications Administered Current Inpatient Medications Acetaminophen (Acetaminophen 325 Mg Tab) 650 mg PO Q4H PRN PRN Reason: Pain or Fever Stop: 05/14/21 22:01 Last Admin: 04/16/21 21:53 Dose: 650 mg Documented by: Albuterol (Albut/Ipratrop 3mg/0.5mg Neb 3 Ml Vial) 3 ml NEB Q4R PRN; Protocol PRN Reason: Shortness Of Breath Or Wheezing Stop: 05/14/21 22:01 Amiodarone HCl (Amiodarone 200 Mg Tab) 200 mg PO [facility] Stop: 05/14/21 22:01 Last Admin: 04/19/21 20:12 Dose: 200 mg Documented by: Amoxicillin (Amoxicillin 500 Mg Cap) 500 mg PO TID [facility] Stop: 04/22/21 20:59 Last Admin: 04/20/21 09:46 Dose: 500 mg Documented by: Famotidine (Famotidine 20 Mg Tab) 20 mg PO QAM [facility] Stop: 05/15/21 08:59 Last Admin: 04/20/21 09:46 Dose: 20 mg Documented by: Furosemide (Furosemide 40 Mg Tab) 40 mg PO QAM [facility] Stop: 05/20/21 08:59 Last Admin: 04/20/21 09:47 Dose: 40 mg Documented by: Levothyroxine Sodium (Levothyroxine Sodium 50 Mcg Tablet) [facility] Stop: 05/15/21 06:29 Last Admin: 04/20/21 05:37 Dose: 50 mcg Documented by: Metoprolol Succinate (Metoprolol Succ 25mg Ext Rel Tab) 25 mg PO [facility] Stop: 05/14/21 22:01 Last Admin: 04/19/21 20:12 Dose: 25 mg Documented by: Pantoprazole Sodium (Pantoprazole 40 Mg Tab) 40 mg PO DAILY [facility] Stop: 05/15/21 08:59 Last Admin: 04/20/21 09:46 Dose: 40 mg Documented by: Potassium Chloride (Potassium Chloride Crtab 20 Meq Tabcr) 20 meq PO DAILY [facility] Stop: 05/15/21 08:59 Last Admin: 04/20/21 09:47 Dose: 20 meq Documented by: Umeclidinium/Vilanterol (Umeclidinium/Vilanterol 62.5/25mcg 7 Puffs/Inhaler) [facility] [place] Stop: 05/15/21 08:59 Last Admin: 04/20/21 09:47 Dose: 1 puffs Documented by: Warfarin Sodium (Warfarin Sod 2 Mg Tab) 2 mg PO [email or web address] [facility] Stop: 05/17/21 15:59 Last Admin: 04/18/21 17:04 Dose: 2 mg Documented by: Warfarin Sodium (Warfarin Sod 1 Mg Tab) 1 mg PO [email or web address] [facility] Stop: 05/19/21 15:59 Last Admin: 04/19/21 16:51 Dose: 1 mg Documented by:
--- NOTE | 2021-04-20 17:30 | Discharge Summary ---
Date of Service April 20, 2021 Admission HPI Per Admitting Provider 75-year-old female with PMH COPD, chronic hypoxic respiratory failure, chronic diastolic CHF, tachybradycardia syndrome s/p pacemaker, atrial fibrillation anticoagulated on Coumadin, CKD stage III, hypothyroidism, and other problems to below who presents the ED for evaluation of shortness of breath. Patient recently admitted to [facility] 03/13 through 03/26 for COVID-19 pneumonia. Patient was treated with IV dexamethasone, she did not meet criteria for remdesivir due to transaminitis. Patient required 2 L of oxygen at discharge. Patient reports progressive worsening of shortness of breath since being discharged in the hospital. She was seen in the cardiology clinic on 04/08 and patient was instructed to increase her Lasix to 40 mg daily. Patient admits to some noncompliance with taking his medication daily. She has increasing lower extremity edema. She also reports about a 15 pound weight gain since being admitted to the hospital. Patient reports a cough productive for white/clear sputum. Home health noted that patient was hypoxic with ambulation on 2 L and was requiring 4 L of oxygen to maintain saturations. Patient denies fevers and chills. No chest pain or palpitations. Denies lightheadedness, dizziness, diaphoresis, syncopal events. Reports she is slowly gaining her appetite back from COVID-19. Denies abdominal pain, nausea, vomiting, diarrhea. No urinary symptoms. Patient is noted to have a small hematoma on her left anterior brown. Reports that she was removing a frozen chicken from the freezer which fell onto her leg. In the ED, at the time my exam patient is saturating well on 2 L of oxygen at rest. CXR showed signs of volume overload and post COVID-19 changes. proBNP 1600. Initial troponin negative. INR 8.5. Patient was given IV azithromycin, IV ceftriaxone, IV Lasix 40 mg, vitamin K 5 mg p.o. Admission Exam Per Admitting Provider Constitutional: WD/WN, vitals as above Eyes: PERRL, conjunctivae normal, anicteric sclerae ENMT: external ear and nose normal, oropharynx normal Respiratory: normal respiratory effort; no respiratory distress Auscultation: + crackles (Bilateral) and + wheezes (Bilateral, expiratory) Shortness of breath with minimal exertion Cardiovascular: Rate/Rhythm: regular rate and regular rhythm Vessels: normal peripheral pulses Extremities: + edema (+2 pitting edema BLE) Gastrointestinal (Abdomen): normal bowel sounds, soft, nontender, no hepatosplenomegaly Musculoskeletal: no cyanosis or clubbing, extremities motor strength 5/5 Skin: no rashes, warm and dry Hematoma noted to left anterior brown Neurologic: PERRL, EOMI, accommodation nl, no face palsy, no dysarthria Psychiatric: A+Ox3, euthymic affect Principal Diagnosis Acute on chronic diastolic heart failure, acute on chronic respiratory failure with hypoxia, COPD, recent COVID 19 infection, atrial fibrillation Discharge Exam Lying in bed comfortably with minimal shortness of breath though Constitutional well developed, well nourished, + ill appearing and + obese Eyes PERRL, conjunctivae normal, anicteric sclerae ENMT external ear and nose normal, oropharynx normal Neck trachea midline, no thyromegaly Respiratory no respiratory distress Auscultation: + diminished lung sounds and + crackles (Much improved); no wheezes (Minimal) Cardiovascular Rate/Rhythm: regular rate and regular rhythm; not tachycardic Heart Sounds: normal S1 and normal S2; no murmur Extremities: + edema (1+ edema bilaterally) Gastrointestinal (Abdomen) Inspection/Auscultation: normal bowel sounds; abdomen not distended Percussion/Palpation: abdomen soft; abdomen nontender Lymphatic no cervical or axillary lymphadenopathy Discharge Data Allergies Allergy/AdvReac Type Severity Reaction Status Date / Time ciprofloxacin Allergy Severe Itching Unverified 04/14/21 16:23 sulfamethoxazole AdvReac Severe CAUSED Verified 04/14/21 16:23 [From Bactrim] KIDNEY PROBLEMS trimethoprim [From Bactrim] AdvReac Severe CAUSED Verified 04/14/21 16:23 KIDNEY PROBLEMS adhesive AdvReac Mild BLISTERS Verified 04/14/21 16:23 Consultations 04/14/21 17:51 ED Decision to Admit Stat 04/14/21 22:02 Consult Cardiology Routine Hospital Course (1) Acute on chronic respiratory failure with hypoxia: Management as below (2) Acute on chronic diastolic CHF (congestive heart failure): -Patient presenting from home with reports of worsening shortness of breath, lower extremity edema, weight gain for the past few weeks. Admitted 03/13 through 03/26 for COVID-19 pneumonia. Discharged home on 2 L of oxygen. Seen in the cardiology clinic on 04/08 and was instructed to increase Lasix to 40 mg daily for acute diastolic CHF. Patient admits to some medication noncompliance. Home health noted patient to be hypoxic with ambulation on 2 L of oxygen, was requiring 4 L of oxygen to maintain saturation. -In the ED, CXR shows signs of volume overload and post COVID-19 changes. proBNP 1600. -Procalcitonin negative -S/p Lasix 40 mg IV in the ED, continue Lasix 40 mg IV twice daily -Echo 08/2020-EF 63%, grade 2 diastolic dysfunction, mild aortic stenosis. Update echo. -Strict I's and O's, low Na+ diet, daily weights -Cardiology consult-appreciate input and recommendation -Given negative pro calcitonin, will hold on antibiotics for now -Patient does have wheezing on exam however would avoid steroids in the setting of volume overload. Wheezing likely due to volume overload. Reevaluate after diuresis. -Even better today but is still requiring 6 L of oxygen to maintain saturation -Still complains to have shortness of breath at rest and with exertion and she is requiring 4 L of oxygen to maintain saturation -We will continue current dose of Lasix -She has been diuresing reasonably -Clinically much better and has been requiring 2 to 4 L of oxygen to maintain saturation -We will get PT and OT evaluation and possible discharge tomorrow-she wants to go to [facility] -Awaiting placement and clinically much better -We will discontinue intravenous Lasix and will start with oral Lasix as before from tomorrow morning -Clinically much better and she does not want to go to rehab -Remains medically stable to be discharged and she is back on her oral furosemide (3) COPD (chronic obstructive pulmonary disease): COPD is complicating the respiratory failure associated with recent COVID- 19 virus infection We will continue bronchodilators -Clinically much better and has been requiring 2 to 4 L of oxygen to maintain s aturation -We will get PT and OT evaluation and possible discharge tomorrow-she wants to go to [facility] -Clinically much better -Denies any more shortness of breath and/or wheezing (4) History of COVID-19: Covid is negative this time but is still the chest x-ray showing changes secondary to viral pneumonia (5) Atrial fibrillation: Rate is controlled INR has been subtherapeutic and Coumadin restarted INR is 1.3-we will give additional dose of Coumadin tonight INR is 1.6 as of 04/19/2021 Her INR remains therapeutic (6) Tachy-silvestre syndrome: (7) Elevated INR: -S/p pacemaker -Rhythm controlled on amiodarone, rate controlled on metoprolol -Anticoagulated on Coumadin, INR 8.2. Received vitamin K 5 mg p.o. in ED -Has a small hematoma on left anterior brown however no other signs of bleeding -INR is 4.0 today and Coumadin is on hold -INR is 1.7 as of 04/16/2021 and Coumadin has been restarted -INR is 1.3 as of 04/18/2021, will give additional dose of Coumadin today -INR is 1.6 as of 04/19/2021-2.1 on 04/20/2021 (8) Hematoma of leg: -Small, contained -Patient reports dropping a frozen chicken on her leg -Monitor closely for expansion given supratherapeutic INR (9) DVT prophylaxis: -On Coumadin with supratherapeutic INR Total Time Total Time Spent Total Time Spent (In Minutes): 35 minutes Discharge Plan Discharge Items Patient Disposition: Home - Home Health Services Reason For Visit: HYPOXIA Discharge Diagnosis: Acute on chronic diastolic heart failure, acute on chronic respiratory failure with hypoxia, COPD, recent COVID 19 infection, atrial fibrillation Condition on Discharge: Fair Activity: Resume your previous activity Non-emergency contact: Primary Care Provider Call non-emergency contact if: you have any medication questions and your symptoms worsen Follow-up/Referrals: Main Almeida DO [Lithographers Printer] - (Date & Time 04/29/2021 1:00 PM Provider Main Almeida DO Department Cardiology [facility] ) Fly Esteves MD [Primary Care Provider] - (Date & Time 04/26/2021 3:00 PM Provider lFy Esteves MD Department Family Medicine [facility] ) Diet: Heart Healthy and Low Sodium (2gm) Addtl Attending Provider Instructions: Please take precautions to avoid falls Check your oxygen as advised Take your medications as advised Please keep appointments with your healthcare providers Please finish the course of antibiotic keep appointment with your coagulation clinic Pending Studies at Discharge: No Stand-Alone Forms: My DearLocal, Smoking Cessation Medications and DC Order Prescriptions: New amoxicillin 500 mg Capsule 500 mg PO TID Qty: 7 RF: 0 Continued warfarin [Jantoven] 2 mg Tablet See Rx Instructions .ROUTE .COMPLEX RF: 0 amiodarone 200 mg tablet 200 mg PO HS RF: 0 famotidine 20 mg tablet 20 mg PO QAM RF: 0 levothyroxine 50 mcg tablet 50 mcg PO QAM RF: 0 furosemide 20 mg tablet 40 mg PO QAM RF: 0 metoprolol succinate 25 mg tablet extended release 24 hr 25 mg PO HS RF: 0 albuterol sulfate [Ventolin HFA] 90 mcg/actuation HFA aerosol inhaler 1 - 2 puff INHALATION DIRECTED PRN (Reason: Shortness Of Breath Or Wheezing) RF: 0 fluticasone propionate 50 mcg/actuation [place],Suspension 2 spray INTRANASAL DAILY PRN (Reason: Nasal Congestion) RF: 0 Anoro Ellipta 62.5-25 mcg/actuation blister with device 1 inh INHALATION QAM RF: 0 cyanocobalamin (vitamin B-12) [Vitamin B-12] 500 mcg Tablet 500 mcg PO QAM RF: 0 potassium chloride 10 mEq tablet,ER particles/crystals 20 meq PO DAILY RF: 0 omeprazole 40 mg capsule,delayed release(DR/EC) 40 mg PO DAILY RF: 0 (DME) Oxygen Home Liters Per Minute See Rx Instructions .Route Qty: 1 RF: 0 Discharge Orders: Discharge Order (Routine); Ordered 04/20/21 Ordered By: Mandy Franklin Admission Data Admit Date/Time: 04/14/21 18:22 Attending Provider: Mandy Franklin Admit Provider: Mandy Franklin Primary Care Provider: Fly Etseves Other Providers: Kole Loyola ; Rj Hairston Other Interventions: Discharge Summary Assessment (RN) Last Done: 04/20/21 12:45
== END 2021-04-20 16:53 | disposition home health service (06) | DRG 291 ==
LOC: ED 14:54 → EDINP 18:22 → 2S 04-15 17:28

== ENCOUNTER 2024-06-13 19:55 | Inpatient (IN) ==
--- NOTE | 2024-06-13 20:43 | Emergency Department Note ---
Impression & Plan Acute on chronic respiratory failure with hypoxia, COPD exacerbation, Leukocytosis ED Provider Note NAME: MARLEE GALLOWAY AGE: 79 SEX: F : 1945 ARRIVES VIA: Ambulance INFORMANT: Patient ED PROVIDER(S): Noah Gonzalez DO CHIEF COMPLAINT: Shortness of breath HPI: Patient is a 79-year-old female with a past medical history of paroxysmal A-fib, CHF who presents to the ER for shortness of breath. She notes her symptoms initially started on Monday with cough, congestion, and runny nose. She cannot walk without becoming significantly short of breath. Denies any recorded fevers but admits to feeling hot and cold. No headache or change in vision. No chest pain. No dysuria, urgency, or frequency. No other exacerbating or remitting factors. ADDITIONAL HISTORY OBTAINED: Per HPI Chronic Medical/Social Conditions Affecting Care: Per HPI PAST MEDICAL HISTORY:See Below PAST SURGICAL HISTORY:See Below FAMILY HISTORY:See Below SOCIAL HISTORY:See Below HOME MEDICATIONS:See Below ALLERGIES:See Below VITALS:See Below PHYSICAL EXAMINATION: GENERAL: Sitting up in bed, alert, dyspneic with conversation, chronically ill- appearing EYE EXAM: normal conjunctiva. PERRL and EOM's grossly intact. OROPHARYNX: no exudate, no erythema, lips, buccal mucosa, and tongue normal and mucous membranes are moist NECK: supple, no nuchal rigidity, no adenopathy, non-tender LUNGS: Diffuse wheezing bilaterally. Normal chest wall mechanics HEART: no murmurs, S1 normal and S2 normal ABDOMEN: abdomen soft, non-tender, normo-active bowel sounds, no masses, no rebound or guarding. UPPER EXTREMITIES: upper extremities are grossly normal. LOWER EXTREMITIES: No pitting edema. NEURO EXAM: Normal sensorium, cranial nerves II-XII grossly intact, normal speech, no gross weakness of arms, no gross weakness of legs. No drift. Finger to nose intact. Gross sensation intact. MEDICAL DECISION MAKING: Patient is a 79-year-old female who presents ER for above-stated complaint. IV was established and blood work was obtained. Labs show mild leukocytosis 11,000. INR 1.9. BMP with a creatinine 1.5. LFTs bilirubin was unremarkable. Troponin was negative. Lipase normal. Viral panel was clean. Chest x-ray with some mild cephalization. She did have diffuse wheezing. She was given an hour- long DuoNeb followed by an hour-long albuterol with IV steroids. She was updated bedside. Discussed case with the hospitalist for further evaluation management treatment. Respiratory rate and work of breathing did improve. Consults/Care Managements Discussions: Per MDM Triage Nursing notes reviewed. Limited review of prior medical records performed Vital Signs: reviewed and remarkable for HTN Differential diagnosis: Differential diagnoses includes but is not limited to pneumonia, bronchitis, COPD/Asthma exacerbation, pneumothorax, pulmonary embolism, congestive heart failure, acute coronary syndrome ER treatment provided: See below Diagnostics interpreted by me include EKG and cardiac monitoring as listed below: -Cardiac Monitoring: An order was placed for continuous cardiac monitoring. The monitor shows a rate of 90 with paced rhythm. -ECG: Atrial paced rate 84 Normal axis No PVCs QTc 474 -Laboratory studies:Interpreted by me as stated above in MDM and shown below. Imaging studies: Xrays: As interpreted by me: Portable AP upright 1 view of the chest shows cephalization CTs show: none Procedures:none Critical Care: I have personally spent 33 minutes of critical care time in the direct management of this patient. This includes bedside care, interpretation of diagnostic studies, and testing, discussion with consultants, patient, and family members, and other required patient management activities. This 33 minutes is in excess of all separately billable procedures. Past Med/Surg History Problem List (Updated 06/14/24 @ 00:26 by Noah Gonzalez DO) Leukocytosis (Acute) COPD exacerbation (Acute) Paroxysmal atrial fibrillation DVT prophylaxis History of COVID-19 Hematoma of leg Acute on chronic respiratory failure with hypoxia (Acute) Acute on chronic diastolic CHF (congestive heart failure) Elevated INR (Acute) Diverticulosis (Chronic) Medical History Abdominal aneurysm Anticoagulated on warfarin Atrial fibrillation Chronic diastolic CHF (congestive heart failure) Chronic respiratory failure with hypoxia CKD (chronic kidney disease) stage 3, GFR 30-59 ml/min COPD (chronic obstructive pulmonary disease) Diverticulosis GERD (gastroesophageal reflux disease) Hypertension Pneumonia due to COVID-19 virus Tachy-silvestre syndrome Tobacco abuse Surgical History H/O tubal ligation History of cardiac pacemaker "10/04/17 Dr. De" History of colonoscopy with polypectomy History of lumpectomy of left breast History of partial colectomy "secondary to diverticulitis" History of tubal ligation Family History Mother Colorectal cancer Myocardial infarction Diabetes Father Diabetes Sister Skin cancer Social History Smoking Status: Former smoker Tobacco Type: Cigarettes Cigarettes Per Day: 10; Second Hand Exposure: Yes; Do You Dip or Chew Tobacco: No; Hx Alcohol Use: No Hx Substance Use: No Preferred Language: Indonesian Communication Ability: Effective Captain Waiter Required: Yes Beliefs That Will Affect Care: None marital status: Current Living Situation: Family Current Living Situation Comment: Grandson and Son Feels Safe at Home: Yes Assistive Devices: Walker Allergies Allergies Allergy/AdvReac Type Severity Reaction Status Date / Time ciprofloxacin Allergy Severe Itching Verified 10/24/22 19:40 sulfamethoxazole AdvReac Severe CAUSED Verified 10/24/22 19:40 [From Bactrim] KIDNEY PROBLEMS trimethoprim [From Bactrim] AdvReac Severe CAUSED Verified 10/24/22 19:40 KIDNEY PROBLEMS adhesive AdvReac Mild BLISTERS Verified 10/24/22 19:40 Home Meds Home Medications Medication Instructions Recorded Confirmed warfarin 2 mg tablet (Jantoven) 2 mg PO WK 12/12/17 06/14/24 albuterol sulfate 90 mcg/actuation 2 puff inhalation Q4 PRN Shortness 07/13/20 06/13/24 aerosol inhaler (Ventolin HFA) Of Breath Or Wheezing amiodarone 200 mg tablet 200 mg PO HS 07/13/20 06/14/24 famotidine 20 mg tablet 20 mg PO QAM 07/13/20 06/13/24 fluticasone propionate 50 2 spray intranasal QAM Nasal 07/13/20 06/13/24 mcg/actuation nasal Congestion spray,suspension metoprolol succinate 25 mg 37.5 mg PO QAM 07/13/20 06/14/24 tablet,extended release 24 hr umeclidinium 62.5 mcg-vilanterol 1 inh inhalation QAM 07/13/20 06/13/24 25 mcg/actuation powdr for inhalation (Anoro Ellipta) omeprazole 40 mg capsule,delayed 40 mg PO BID 04/14/21 06/13/24 release warfarin 1 mg tablet 1 mg PO [id number] 10/24/22 06/14/24 ascorbic acid (vitamin C) 500 mg 500 mg PO Q OTHER DAY 06/13/24 06/13/24 tablet (Vitamin C) atorvastatin 10 mg tablet 10 mg PO QAM 06/13/24 06/13/24 cholecalciferol (vitamin D3) 50 50 mcg PO QAM 06/13/24 06/13/24 mcg (2,000 unit) tablet (Vitamin D3) cyanocobalamin (vitamin B-12) 100 100 mcg PO QAM 06/13/24 06/13/24 mcg tablet furosemide 20 mg tablet See Rx Instructions .Route .COMPLEX 06/13/24 06/13/24 gabapentin 100 mg capsule 100 mg PO QAM 06/13/24 06/14/24 gabapentin 300 mg capsule 300 mg PO HS 06/13/24 06/14/24 ketoconazole 2 % shampoo 1 applic topical [id number] 06/13/24 06/13/24 levothyroxine 75 mcg tablet 75 mcg PO DAILYBB 06/13/24 06/13/24 potassium chloride 10 mEq 10 meq PO QAM 06/13/24 06/13/24 tablet,extended release(part/cryst) Previous Rx's Medication Instructions Recorded Oxygen Home #1 ea 03/26/21 Results & Data (ED) Vital Signs Vital Signs - 24 hr 06/13/24 20:11 06/13/24 20:14 06/13/24 20:15 Temperature 36.4 C L Temperature Source Oral Pulse Rate 91 H Pulse Rate [Apical] Respiratory Rate 28 H Respiratory Effort / Characteristics Short of Breath Non-Labored Respiratory Depth Normal Respiratory Pattern Blood Pressure 146/74 H Blood Pressure [Left Arm] Blood Pressure Mean 98 Blood Pressure Mean [Left Arm] Pulse Oximetry 90 Oxygen Delivery Method Room Air Room Air Oxygen Flow Rate Sepsis Recent Fever Within 48 Hours Yes Sepsis New/Unexplained Change in Mental Status No Sepsis Action Taken by Nursing No Action Required 06/13/24 20:15 06/13/24 20:15 06/13/24 21:00 Temperature Temperature Source Pulse Rate 64 Pulse Rate [Apical] Respiratory Rate 18 Respiratory Effort / Characteristics Respiratory Depth Normal Respiratory Pattern Blood Pressure Blood Pressure [Left Arm] Blood Pressure Mean Blood Pressure Mean [Left Arm] Pulse Oximetry 97 97 Oxygen Delivery Method Room Air Room Air Oxygen Flow Rate Sepsis Recent Fever Within 48 Hours Sepsis New/Unexplained Change in Mental Status Sepsis Action Taken by Nursing 06/13/24 22:00 06/13/24 23:00 Temperature Temperature Source Pulse Rate Pulse Rate [Apical] 66 67 Respiratory Rate 24 22 Respiratory Effort / Characteristics Spontaneous Non-Labored Spontaneous Respiratory Depth Shallow Normal Respiratory Pattern Regular Regular Blood Pressure Blood Pressure [Left Arm] 125/65 126/61 Blood Pressure Mean Blood Pressure Mean [Left Arm] 85 82 Pulse Oximetry 98 90 Oxygen Delivery Method Nasal Cannula Nasal Cannula Oxygen Flow Rate 2 2 Sepsis Recent Fever Within 48 Hours Sepsis New/Unexplained Change in Mental Status Sepsis Action Taken by Nursing Laboratory Data 06/13/24 20:52 06/13/24 20:52 Lab Results 06/13/24 06/13/24 Range/Units 20:08 20:52 WBC 11.22 H (4.8-10.8) K/ul RBC 3.93 L (4.20-5.40) M/uL Hgb 11.3 L (12.0-16.0) g/dl Hct 36.3 L (37.0-47.0) % MCV 92.4 (80.0-100.0) fL MCH 28.8 (25.0-34.0) pg MCHC 31.1 L (32.0-36.0) g/dL RDW Std Deviation 50.2 H (36.4-46.3) fL RDW Coeff of Cindy 14.8 H (11.5-14.5) % Plt Count 261 (130-400) K/uL MPV 10.5 (9.4-12.4) fL Immature Gran % (Auto) 0.4 % Neut % (Auto) 68.9 % Lymph % (Auto) 19.3 % [place] % (Auto) 7.8 % Eos % (Auto) 3.1 % Baso % (Auto) 0.5 % Neut # (Auto) 7.72 H (1.40-6.50) K/uL Lymph # (Auto) 2.17 (1.20-3.40) K/uL [place] # (Auto) 0.87 H (0.11-0.59) K/uL Eos # (Auto) 0.35 (0.00-0.50) K/uL Baso # (Auto) 0.06 (0.00-0.20) K/uL Immature Gran # (Auto) 0.05 (0.01-0.20) K/uL PT 19.1 H (9.0-12.0) Seconds INR 1.9 H (0.9-1.1) Sodium 139 (136-145) mmol/L Potassium 4.2 (3.5-5.1) mmol/L Chloride 106 (98-107) mmol/L Carbon Dioxide 29 (21-32) mmol/L Anion Gap 4 (3-11) BUN 15 (6-23) mg/dl Creatinine 1.55 H (0.6-1.2) mg/dl Est Cr Clr Drug Dosing 28.8 ml/min eGFR 34.29 BUN/Creatinine Ratio 9.7 L (10-20) Glucose 113 H (70-99(Fasting)) mg/dl Calcium 8.7 (8.6-10.3) mg/dl Total Bilirubin 0.7 (0.2-1.0) mg/dl AST 26 (13-39) U/L ALT 22 (7-52) U/L Alkaline Phosphatase 155 H (34-104) U/L Troponin I High Sens 5.5 (0-14) pg/ml Total Protein 6.8 (6.0-8.3) gm/dl Albumin 3.5 (3.4-5.0) gm/dl Globulin 3.3 (2.5-4.0) gm/dl Albumin/Globulin Ratio 1.1 (0.9-2) Lipase 7 L (11-82) U/L Adenovirus (PCR) Not Detected (NotDetected) B. pertussis DNA (PCR) Not Detected (NotDetected) B.parapertussis DNA PCR Not Detected (NotDetected) C. pneumoniae DNA (PCR) Not Detected (NotDetected) Coronavirus OC43 (PCR) Not Detected (NotDetected) Coronavirus HKU1 (PCR) Not Detected (NotDetected) Coronavirus 229E (PCR) Not Detected (NotDetected) SARS-CoV-2 (PCR) Not Detected (NotDetected) Coronavirus NL63 (PCR) Not Detected (NotDetected) Human Metapneumovir PCR Not Detected (NotDetected) Influenza Type A (PCR) Not Detected (NotDetected) Influenza Type B (PCR) Not Detected (NotDetected) M. pneumoniae (PCR) Not Detected (NotDetected) Parainfluenza 1 (PCR) Not Detected (NotDetected) Parainfluenza 2 (PCR) Not Detected (NotDetected) Parainfluenza 3 (PCR) Not Detected (NotDetected) Parainfluenza 4 (PCR) Not Detected (NotDetected) RSV (PCR) Not Detected (NotDetected) Entero/Rhino (PCR) Not Detected (NotDetected) Administered Medications Discontinued Medications Albuterol (Albut/Ipratrop 3mg/0.5mg Neb 3 Ml Vial) 9 ml NEB NOW STA; Protocol Stop: 06/13/24 20:42 Last Admin: 06/13/24 20:56 Dose: 9 ml Documented By: JASMYN Albuterol (Albuterol 0.083% Nebu Soln 3 Ml Vial) 5 mg NEB NOW STA; Protocol Stop: 06/13/24 22:33 Last Admin: 06/13/24 22:40 Dose: 5 mg Documented By: JASMYN Methylprednisolone (Methylprednisolone 125 Mg/2 Ml Vial) 40 mg IV NOW STA Stop: 06/13/24 20:42 Last Admin: 06/13/24 20:45 Dose: 40 mg Documented By: JASMYN Discharge Plan Visit Data Chief Complaint: Shortness of Breath/Dyspnea Stated Complaint: SOB, Flu Like Symptoms ED Provider: Noah Gonzalez Discharge Problem: Acute on chronic respiratory failure with hypoxia, COPD exacerbation, Leukocytosis Patient Disposition: Admitted As Inpatient Discharge Instructions Interventions: ED Discharge Assessment Last Done: 06/13/24 23:49 Discharge Problem: Leukocytosis Qualifiers: Leukocytosis type: unspecified Qualified Code(s): D72.829 - Elevated white blood cell count, unspecified
[2024-06-13] MEDS: methylPREDNISolone 125 MG/2 ML VIAL IV STA (20:45)
[2024-06-13] MEDS: ALBUT/IPRATROP 3MG/0.5MG NEB 3 ML VIAL NEB STA (20:56)
[2024-06-13 21:05] LABS: Basophils # (auto) 0.06 K/uL (0.00-0.20); Basophils % (auto) 0.5 %; Eosinophils # (auto) 0.35 K/uL (0.00-0.50); Eosinophils % (auto) 3.1 %; Hematocrit (blood only) 36.3 % (37.0-47.0); Hemoglobin 11.3 g/dl (12.0-16.0); Immature Granulocytes # (auto) 0.05 K/uL (0.01-0.20); Immature Granulocytes % (auto) 0.4 %; Lymphocytes # (auto) 2.17 K/uL (1.20-3.40); Lymphocytes % (auto) 19.3 %; Mean Corpuscular Hemoglobin 28.8 pg (25.0-34.0); Mean Corpuscular Hgb Conc 31.1 g/dL (32.0-36.0); Mean Corpuscular Volume 92.4 fL (80.0-100.0); Mean Platelet Volume 10.5 fL (9.4-12.4); Monocytes # (auto) 0.87 K/uL (0.11-0.59); Monocytes % (auto) 7.8 %; Neutrophils # (auto) 7.72 K/uL (1.40-6.50); Neutrophils % (auto) 68.9 %; Platelet Count 261 K/uL (130-400); RDW Coefficient of Variation 14.8 % (11.5-14.5); RDW Standard Deviation 50.2 fL (36.4-46.3); Red Blood Count 3.93 M/uL (4.20-5.40); White Blood Count 11.22 K/ul (4.8-10.8)
[2024-06-13 21:27] LABS: Albumin Globulin Ratio 1.1 (0.9-2); Albumin Level 3.5 gm/dl (3.4-5.0); BUN Creatinine Ratio 9.7 (10-20); Bilirubin,Total 0.7 mg/dl (0.2-1.0); Calcium 8.7 mg/dl (8.6-10.3); Creatinine Clr Calc Pharmacy 28.8 ml/min; Globulin 3.3 gm/dl (2.5-4.0); Potassium 4.2 mmol/L (3.5-5.1); Total Protein 6.8 gm/dl (6.0-8.3)
[2024-06-13 21:33] LABS: INR 1.9 (0.9-1.1); Prothrombin Time 19.1 Seconds (9.0-12.0); Troponin I High Sensitivity 5.5 pg/ml (0-14)
[2024-06-13 21:35] LABS: Adenovirus PCR Not Detected (NotDetected); Bordetella parapertussis PCR Not Detected (NotDetected); Bordetella pertussis PCR Not Detected (NotDetected); Chlamydia pneumoniae PCR Not Detected (NotDetected); Coronavirus 229E PCR Not Detected (NotDetected); Coronavirus CoV-2 (COVID19)PCR Not Detected (NotDetected); Coronavirus HKU1 PCR Not Detected (NotDetected); Coronavirus NL63 PCR Not Detected (NotDetected); Coronavirus OC43PCR Not Detected (NotDetected); Human Metapneumovirus PCR Not Detected (NotDetected); Influenza A PCR Not Detected (NotDetected); Influenza B PCR Not Detected (NotDetected); Mycoplasma pneumoniae PCR Not Detected (NotDetected); Parainfluenza Virus 1 PCR Not Detected (NotDetected); Parainfluenza Virus 2 PCR Not Detected (NotDetected); Parainfluenza Virus 3 PCR Not Detected (NotDetected); Parainfluenza Virus 4 PCR Not Detected (NotDetected); Respiratory Syncytial VirusPCR Not Detected (NotDetected); Rhinovirus/Enterovirus PCR Not Detected (NotDetected)
[2024-06-13] MEDS: ALBUTEROL 0.083% NEBU SOLN 3 ML VIAL NEB STA (22:40)
--- NOTE | 2024-06-13 22:42 | History & Physical Report ---
Date of Service June 13, 2024 Assessment & Plan (1) Acute on chronic respiratory failure with hypoxia: Plan: Continue oxygen therapy. Patient is only on oxygen at at bedtime. She will need an ambulatory pulse oximetry prior to discharge Consult pulmonary medicine (2) COPD exacerbation: Plan: Patient given IV steroid bolus Start oral steroids 50 mg daily tomorrow Flutter therapy Incentive spirometry DuoNeb treatments Continue outpatient inhalers Establish with pulmonary medicine (3) Chronic diastolic CHF (congestive heart failure): Plan: Awaiting BNP evaluation Continue Lasix Patient appears to be euvolemic at present Patient follows with cardiology (4) CKD (chronic kidney disease) stage 3, GFR 30-59 ml/min: Plan: Trend labs Avoid nephrotoxins (5) Anticoagulated on warfarin: Plan: Patient is mildly subtherapeutic Continue warfarin, consult pharmacy for dosing recommendations (6) Atrial fibrillation: Plan: Patient has a controlled rate Continue metoprolol Continue amiodarone Plan Patient is a DNI/DNR VTE prophylaxis: Continue warfarin A total of 75 minutes spent in review of laboratory data, chest x-ray and care planning History of Present Illness Chief Complaint: Shortness of breath Primary Care Provider: Agnes Saavedra DO Gali hollins is a 79-year-old female with a past medical history significant for paroxysmal A-fib anticoagulated on warfarin, chronic diastolic heart failure, COPD on O2 at at bedtime, GERD, tobacco abuse disorder, hypertension and CKD stage III. She presents to the ED this evening with severe dyspnea on exertion. Her symptoms began approximately 3 to 4 days ago and consisted of cough and congestion. She cannot walk without becoming significantly short of breath. Patient required 2 L of O2 in the ED due to hypoxia. She has a mildly elevated white count. Chest x-ray does not show any obvious infiltrative process. She is wheezing profusely. She was given multiple neb treatments in the ED without relief of her wheezing and shortness of breath. Patient is referred for admission. Allergies Allergy/AdvReac Type Severity Reaction Status Date / Time ciprofloxacin Allergy Severe Itching Verified 10/24/22 19:40 sulfamethoxazole AdvReac Severe CAUSED Verified 10/24/22 19:40 [From Bactrim] KIDNEY PROBLEMS trimethoprim [From Bactrim] AdvReac Severe CAUSED Verified 10/24/22 19:40 KIDNEY PROBLEMS adhesive AdvReac Mild BLISTERS Verified 10/24/22 19:40 Home Medications Medication Instructions Recorded Confirmed Type warfarin 2 mg tablet (Jantoven) 2 mg PO 2XWK 12/12/17 10/24/22 History albuterol sulfate 90 mcg/actuation 1 - 2 puff inhalation DIRECTED 07/13/20 10/24/22 History aerosol inhaler (Ventolin HFA) PRN Shortness Of Breath Or Wheezing amiodarone 200 mg tablet 200 mg PO HS 07/13/20 10/24/22 History cyanocobalamin (vitamin B-12) 500 500 mcg PO QAM 07/13/20 10/24/22 History mcg tablet (Vitamin B-12) famotidine 20 mg tablet 20 mg PO QAM 07/13/20 10/24/22 History fluticasone propionate 50 2 spray intranasal DAILY PRN Nasal 07/13/20 10/24/22 History mcg/actuation nasal Congestion spray,suspension furosemide 20 mg tablet 40 mg PO QAM 07/13/20 10/24/22 History levothyroxine 50 mcg tablet 50 mcg PO QAM 07/13/20 10/24/22 History metoprolol succinate 25 mg 25 mg PO HS 07/13/20 10/24/22 History tablet,extended release 24 hr umeclidinium 62.5 mcg-vilanterol 1 inh inhalation QAM 07/13/20 10/24/22 History 25 mcg/actuation powdr for inhalation (Anoro Ellipta) Oxygen Home #1 ea 03/26/21 04/14/21 Rx omeprazole 40 mg capsule,delayed 40 mg PO DAILY 04/14/21 10/24/22 History release potassium chloride 10 mEq 20 meq PO DAILY 04/14/21 10/24/22 History tablet,extended release(part/cryst) ascorbic acid (vitamin C) 500 mg 500 mg PO QAM 10/24/22 10/24/22 History tablet (Vitamin C) ramipril 2.5 mg capsule 2.5 mg PO QAM 10/24/22 10/24/22 History tramadol 50 mg tablet 50 mg PO BID PRN pain #11 tabs 10/24/22 Rx warfarin 1 mg tablet 1 mg PO 5XWK 10/24/22 10/24/22 History Past Med/Surg History Problem List (Updated 06/13/24 @ 22:42 by Bandar F Pagnotto, DO) COPD exacerbation Paroxysmal atrial fibrillation DVT prophylaxis History of COVID-19 Hematoma of leg Acute on chronic respiratory failure with hypoxia Acute on chronic diastolic CHF (congestive heart failure) Elevated INR (Acute) Diverticulosis (Chronic) Medical History Abdominal aneurysm Anticoagulated on warfarin Atrial fibrillation Chronic diastolic CHF (congestive heart failure) Chronic respiratory failure with hypoxia CKD (chronic kidney disease) stage 3, GFR 30-59 ml/min COPD (chronic obstructive pulmonary disease) Diverticulosis GERD (gastroesophageal reflux disease) Hypertension Pneumonia due to COVID-19 virus Tachy-silvestre syndrome Tobacco abuse Surgical History H/O tubal ligation History of cardiac pacemaker "10/04/17 Dr. 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 Beliefs That Will Affect Care: None marital status: Current Living Situation: Family Current Living Situation Comment: Grandson and Son Feels Safe at Home: Yes Assistive Devices: Walker Review of Systems Review of Systems: Constitutional- no fever; no weight loss Eyes- no acute visual changes ENT- no sinus drainage; no pharyngitis Pulmonary- no cough, no wheezing, no shortness of breath Cardiac- no chest pain, no palpitations, no orthopnea, no dependent edema GI- no nausea, no vomiting, no diarrhea, no melena, no hematochezia - no dysuria, no hematuria Musculoskeletal- no arthralgias, no myalgias Derm- no rashes, no new skin lesions, no changing skin lesions Hematologic- no unusual bruising, no unusual bleeding Lymphatics- no adenopathy Endocrine- no polyuria or polydipsia; no heat or cold intolerance Neuro- no headaches, no focal neurologic symptoms Psych- no anxiety, no depression Physical Exam Physical Exam: General- adult Head- atraumatic Eyes- PERRL, EOMI, anicteric ENT- oropharynx clear Neck- supple, no JVD, no adenopathy, no thyromegaly; carotids +2/2, no bruits appreciated Lungs-bibasilar rhonchi and end expiratory wheezing in all hardy Heart- regular rhythm; no murmur, no gallop, no rub appreciated Abdomen- normal bowel sounds, soft, nontender, no masses or hepatosplenomegaly Extremities- no pretibial edema, no calf tenderness; peripheral pulses intact Neuro- alert, oriented x 3; PERRL, EOMI; no facial palsy; no dysarthria; motor 5/5 bilaterally; no cogwheel rigidity; patellar DTRs +2/2; toes downgoing bilaterally; finger to nose intact bilaterally Skin- warm & dry Results & Data Results & Data Vital Signs (Past 12 Hours) Vital Signs Temp Pulse Pulse Resp BP BP Pulse Ox 06/13/24 22:00 66 24 125/65 98 06/13/24 21:00 97 06/13/24 20:15 64 06/13/24 20:15 18 97 06/13/24 20:15 06/13/24 20:11 36.4 C L 91 H 28 H 146/74 H 90 O2 Del Method O2 Flow Rate 06/13/24 22:00 Nasal Cannula 2 06/13/24 21:00 Room Air 06/13/24 20:15 06/13/24 20:15 Room Air 06/13/24 20:15 Room Air 06/13/24 20:11 Room Air Diagnostic Findings Laboratory Results WBC 11.22 K/ul (4.8-10.8) H 06/13/24 20:52 RBC 3.93 M/uL (4.20-5.40) L 06/13/24 20:52 Hgb 11.3 g/dl (12.0-16.0) L 06/13/24 20:52 Hct 36.3 % (37.0-47.0) L 06/13/24 20:52 MCV 92.4 fL (80.0-100.0) 06/13/24 20:52 MCH 28.8 pg (25.0-34.0) 06/13/24 20:52 MCHC 31.1 g/dL (32.0-36.0) L 06/13/24 20:52 RDW Std Deviation 50.2 fL (36.4-46.3) H 06/13/24 20:52 RDW Coeff of Cindy 14.8 % (11.5-14.5) H 06/13/24:52 Plt Count 261 K/uL (130-400) 06/13/24 20:52 MPV 10.5 fL (9.4-12.4) 06/13/24 20:52 Immature Gran % (Auto) 0.4 % 06/13/24:52 Neut % (Auto) 68.9 % 06/13/24:52 Lymph % (Auto) 19.3 % 06/13/24 20:52 [place] % (Auto) 7.8 % 06/13/24 20:52 Eos % (Auto) 3.1 % 06/13/24:52 Baso % (Auto) 0.5 % 06/13/24:52 Neut # (Auto) 7.72 K/uL (1.40-6.50) H 06/13/24 20:52 Lymph # (Auto) 2.17 K/uL (1.20-3.40) 06/13/24 20:52 [place] # (Auto) 0.87 K/uL (0.11-0.59) H 06/13/24 20:52 Eos # (Auto) 0.35 K/uL (0.00-0.50) 06/13/24 20:52 Baso # (Auto) 0.06 K/uL (0.00-0.20) 06/13/24 20:52 Immature Gran # (Auto) 0.05 K/uL (0.01-0.20) 06/13/24 20:52 PT 19.1 Seconds (9.0-12.0) H 06/13/24 20:52 INR 1.9 (0.9-1.1) H 06/13/24 20:52 Sodium 139 mmol/L (136-145) 06/13/24 20:52 Potassium 4.2 mmol/L (3.5-5.1) 06/13/24 20:52 Chloride 106 mmol/L (98-107) 06/13/24 20:52 Carbon Dioxide 29 mmol/L (21-32) 06/13/24 20:52 Anion Gap 4 (3-11) 06/13/24 20:52 BUN 15 mg/dl (6-23) 06/13/24 20:52 Creatinine 1.55 mg/dl (0.6-1.2) H 06/13/24 20:52 Est Cr Clr Drug Dosing 28.8 ml/min 06/13/24 20:52 eGFR 34.29 06/13/24 20:52 BUN/Creatinine Ratio 9.7 (10-20) L 06/13/24 20:52 Glucose 113 mg/dl (70-99(Fasting)) H 06/13/24 20:52 Calcium 8.7 mg/dl (8.6-10.3) 06/13/24 20:52 Total Bilirubin 0.7 mg/dl (0.2-1.0) 06/13/24 20:52 AST 26 U/L (13-39) 06/13/24 20:52 ALT 22 U/L (7-52) 06/13/24 20:52 Alkaline Phosphatase 155 U/L (34-104) H 06/13/24 20:52 Troponin I High Sens 5.5 pg/ml (0-14) 06/13/24 20:52 Total Protein 6.8 gm/dl (6.0-8.3) 06/13/24 20:52 Albumin 3.5 gm/dl (3.4-5.0) 06/13/24 20:52 Globulin 3.3 gm/dl (2.5-4.0) 06/13/24 20:52 Albumin/Globulin Ratio 1.1 (0.9-2) 06/13/24 20:52 Lipase 7 U/L (11-82) L 06/13/24 20:52 Adenovirus (PCR) Not Detected (NotDetected) 06/13/24 20:08 B. pertussis DNA (PCR) Not Detected (NotDetected) 06/13/24 20:08 B.parapertussis DNA PCR Not Detected (NotDetected) 06/13/24 20:08 C. pneumoniae DNA (PCR) Not Detected (NotDetected) 06/13/24 20:08 Coronavirus OC43 (PCR) Not Detected (NotDetected) 06/13/24 20:08 Coronavirus HKU1 (PCR) Not Detected (NotDetected) 06/13/24 20:08 Coronavirus 229E (PCR) Not Detected (NotDetected) 06/13/24 20:08 SARS-CoV-2 (PCR) Not Detected (NotDetected) 06/13/24 20:08 Coronavirus NL63 (PCR) Not Detected (NotDetected) 06/13/24 20:08 Human Metapneumovir PCR Not Detected (NotDetected) 06/13/24 20:08 Influenza Type A (PCR) Not Detected (NotDetected) 06/13/24 20:08 Influenza Type B (PCR) Not Detected (NotDetected) 06/13/24 20:08 M. pneumoniae (PCR) Not Detected (NotDetected) 06/13/24 20:08 Parainfluenza 1 (PCR) Not Detected (NotDetected) 06/13/24 20:08 Parainfluenza 2 (PCR) Not Detected (NotDetected) 06/13/24 20:08 Parainfluenza 3 (PCR) Not Detected (NotDetected) 06/13/24 20:08 Parainfluenza 4 (PCR) Not Detected (NotDetected) 06/13/24 20:08 RSV (PCR) Not Detected (NotDetected) 06/13/24 20:08 Entero/Rhino (PCR) Not Detected (NotDetected) 06/13/24 20:08
[2024-06-13] MEDS ORDERED: MELATONIN 3 MG TAB PO PRN (23:49)
[2024-06-13] MEDS ORDERED: POLYETHYLENE (MIRALAX) 17 GM PACK PO PRN (23:49)
[2024-06-13] MEDS ORDERED: guaiFENesin/DEXTROM SYRUP 100MG/10MG 5ML UDC PO PRN (23:49)
[2024-06-13] MEDS ORDERED: ALUMINUM/MAGNESIUM SUSP 30 ML UDC PO PRN (23:49)
[2024-06-13] MEDS ORDERED: ONDANSETRON INJ 2 MG/ML 2 ML VIAL IV PRN (23:49)
[2024-06-13] MEDS ORDERED: ACETAMINOPHEN 325 MG TAB PO PRN (23:49)
--- NOTE | 2024-06-14 01:15 | XRay Report ---
Exam(s): XR CXR 1 VIEW EXAM: XR Chest, 1 View CLINICAL HISTORY: Reason for exam: Chest pain, nonspecific. TECHNIQUE: Frontal view of the chest. COMPARISON: Chest radiograph on 04/19/2021 FINDINGS: Hardware: None. Lungs/pleura: Prominence lung markings and hazy opacities. No pleural effusion or pneumothorax. Heart/mediastinum: Borderline size of the cardiac silhouette. Atherosclerotic changes in the aorta. Left-sided pacemaker Soft tissues: Unremarkable. Bones: No acute fracture. Upper abdomen: Normal. IMPRESSION: Prominent lung markings and hazy opacities raise concern for pulmonary vasculature congestion/edema. Electronically signed by: Angel Douglass M.D. 06/14/24 01:14 AM
[2024-06-14] MEDS: WARFARIN SOD 2 MG TAB PO SCH ×2 (01:43→16:42)
[2024-06-14] MEDS: AMIODARONE 200 MG TAB PO ONE (02:06)
[2024-06-14] MEDS: GABAPENTIN 300 MG CAP PO STA (02:06)
[2024-06-14] MEDS: LEVOTHYROXINE SODIUM 75 MCG TABLET PO SCH (06:16)
[2024-06-14 06:50] LABS: Hematocrit (blood only) 35.6 % (37.0-47.0); Hemoglobin 11.3 g/dl (12.0-16.0); Mean Corpuscular Hemoglobin 29.2 pg (25.0-34.0); Mean Corpuscular Hgb Conc 31.7 g/dL (32.0-36.0); Mean Platelet Volume 10.9 fL (9.4-12.4); Platelet Count 247 K/uL (130-400); RDW Standard Deviation 49.9 fL (36.4-46.3); Red Blood Count 3.87 M/uL (4.20-5.40); White Blood Count 9.56 K/ul (4.8-10.8)
[2024-06-14 07:14] LABS: BUN Creatinine Ratio 12.4 (10-20); Calcium 8.8 mg/dl (8.6-10.3); Creatinine Clr Calc Pharmacy 34.4 ml/min; Potassium 4.7 mmol/L (3.5-5.1)
--- NOTE | 2024-06-14 07:24 | Electrocardiogram Report ---
Test Reason : Blood Pressure : */* mmHG Vent. Rate : 84 BPM Atrial Rate : 84 BPM P-R Int : 326 ms QRS Dur : 78 ms QT Int : 400 ms P-R-T Axes : * 48 42 degrees QTcB Int : 472 ms Atrial-paced rhythm with prolonged AV conduction Low voltage QRS Abnormal ECG When compared with ECG of 14-Apr-2021 15:10, No significant change was found Confirmed by Frank Jimenez [id number]) on 06/14/2024 7:23:57 AM Referred By: REFERRED SELF Confirmed By: Frank Jimenez
[2024-06-14 07:25] LABS: INR 1.8 (0.9-1.1); Prothrombin Time 18.7 Seconds (9.0-12.0)
[2024-06-14] MEDS: ALBUT/IPRATROP 3MG/0.5MG NEB 3 ML VIAL NEB SCH (07:33)
[2024-06-14] MEDS: POTASSIUM CHLORIDE CRTAB 20 MEQ TABCR PO SCH (10:14)
[2024-06-14] MEDS: FAMOTIDINE 20 MG TAB PO SCH (10:14)
[2024-06-14] MEDS: UMECLIDINIUM/VILANTEROL 62.5/25MCG 7 PUFFS/INHALER INH SCH (10:15)
[2024-06-14] MEDS: GABAPENTIN 100 MG CAP PO SCH (10:17)
[2024-06-14] MEDS: ATORVASTATIN 10 MG TAB PO SCH (10:17)
[2024-06-14] MEDS: FUROSEMIDE 40 MG TAB PO SCH (10:17)
[2024-06-14] MEDS: PANTOprazole 40 MG TAB PO SCH (10:17)
[2024-06-14] MEDS: FLUTICASONE PROPIONATE NA SPR 16 GM BTL SCH (10:18)
[2024-06-14] MEDS: predniSONE 50 MG TAB PO SCH (10:19)
--- OUTSIDE RECORDS SUMMARY | 2024-06-14 13:29 | External Medical Summary | Summary of Care ---
Author Name Unknown Organization [facility] Address [address] [place] [address] Phone [phone] Care Team Providers Care Director Employee Safety And Health Name Role Phone Agnes Saavedra Gonsalezstiven [employer] Primary Care Provider [phone] Reason for Referral * Precert (Within 10 days (routine)) - Authorized Specialty Diagnoses / Procedures Referred By Luciana t Referred To Contact Radiology Diagnoses Encounter for monitoring amiodarone therapy SOB (shortness of breath) Procedures CT CHEST WO CONTRAST Price De PA-C [address] [place] [address] Phone: tel: fax: Referral ID Status Reason Start Date Expiration Date V isits Requested Visits Authorized [id number] Authorized 05/29/[phone] Reason for Visit * Reason Onset Date Comments Test Results 05/22/2024 Encounter Details Date Type Department Care Team ([facility] st Contact Info) Description 05/22/2024 Telephone Cardiology, [facility] [address] [place] [address] Price De PA-C [address] [place] [address] Test Results Allergies Active Allergy Reactions Criticality Noted Date Comments Amoxicillin 04/13/2022 Severe itching Sulfamethoxazole-Trimethopri m 06/26/2018 Affected Kidneys Cephalexin 07/22/2020 Redness and flushing, diarrhea documented as of this encounter (statuses as of 05/24/2024) Medications CYANOCOBALAMIN (VITAMIN B-12) 100 MCG Tablet Take 1 Tablet by mouth in the morning. Active Vitamin C 500 MG Oral Tablet (Ascorbic Acid) Take 1 Tablet by mouth every other day. Active oxygen IN GASIndications:Ch ronic diastolic congestive heart failure (HCC),COPD, group B, by GOLD 2017 classification ([facility]LY [facility]) Use as directed 2 L/min(Oxygen) at bedtime as needed for Shortness of Breath. 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 18 g 3 01/16/20 24 Active Diclofenac Sodium 1 % External Gel (Voltaren) Apply topically to affected area 4 times a day as needed for Pain. Apply to left knee 100 g 5 01/16/20 24 Active Potassium Chloride Bhavana ER 10 MEQ Oral Tablet Extended Release Take 1 Tablet by mouth in the morning. 90 Tablet 3 01/17/20 24 Active Anoro Ellipta 62.5-25 MCG/ACT Inhalation Aerosol Powder Breath Activated (umeclidinium-riccardo anterol)Indicatio ns:COPD, group B, by GOLD 2017 classification ([facility]) INHALE ONE PUFF BY MOUTH IN THE MORNING 180 Each 1 02/06/20 24 Active Levothyroxine Sodium 75 MCG Oral Tablet (Levoxyl)Indicati ons:Acquired hypothyroidism take 1 tablet in the morning at least 30 minutes before breakfast or other medications. 90 Tablet 1 02/18/20 24 Active Nitrofurantoin Monohyd Macro 100 MG Oral Capsule (Macrobid) Take 1 Capsule by mouth 2 times a day. With meals 10 Capsule 02/19/20 24 Active Sertraline HCl 50 MG Oral Tablet (Zoloft) TAKE ONE TABLET BY MOUTH IN THE MORNING 90 Tablet 1 03/06/20 24 Active Fluticasone Propionate 50 MCG/ACT Nasal Suspension (Flonase)Indicati ons:Seasonal allergies Administer 2 Sprays into each nostril in the morning. 48 g 1 03/08/20 24 Active Famotidine 20 MG Oral Tablet (Pepcid)Indicatio ns:GERD (gastroesophageal reflux disease) Take 1 Tablet by mouth in the morning. 90 Tablet 1 03/08/20 24 Active Clindamycin Phosphate 1 % External GelIndications:Fo lliculitis Apply to each open areas on body and scalp 2x daily (or more when itchy instead of rubbing/picking/sc ratching at areas) 60 g 3 03/11/20 24 Active Ketoconazole 2 % External Shampoo (Nizoral)Indicati ons:H/O seborrheic dermatitis Massage into scalp and rinse out after 5 minutes--do 3 times weekly Strength: 2 % 120 mL 3 03/11/20 24 Active Triamcinolone Acetonide 0.1 % External Ointment (Aristocort)Indic ations:Pruritus,M ultiple excoriations Apply to open and itchy areas instead of scratching at them (2x daily or more if needed) 454 g 03/11/20 24 Active Ramipril 2.5 MG Oral Capsule (Altace)Indicatio ns:Stage 3a chronic kidney disease (HCC) TAKE ONE CAPSULE BY MOUTH EVERY DAY 90 Capsule 1 03/21/20 24 Active Metoprolol Succinate ER 25 MG Oral Tablet Extended Release 24 Hour (toPROL XL)Indications:PA F (paroxysmal atrial fibrillation) ([facility]LY [facility]) TAKE ONE TABLET BY MOUTH EVERY DAY 90 Tablet 3 04/06/20 24 Active Omeprazole 40 MG Oral Capsule Delayed Release (PriLOSEC)Indicat ions:Gastroesopha geal reflux disease without esophagitis TAKE ONE CAPSULE BY MOUTH TWICE DAILY 180 Capsule 1 04/05/20 24 Active Vitamin D3 50 MCG (2000 UT) Oral Capsule Take 1 Capsule by mouth in the morning. 04/15/19 25 Active Amiodarone HCl 200 MG Oral Tablet (Cordarone)Indica tions:Paroxysmal atrial fibrillation (HCC) TAKE ONE TABLET BY MOUTH EVERY DAY 90 Tablet 05/10/19 25 Active Furosemide 20 MG Oral Tablet (Lasix)Indication s:Bilateral lower extremity edema Take 2 Tablets by mouth once a day on Monday, , Monday, and Monday only AND 3 Tablets once a day on Monday, Monday, and Monday only. 200 Tablet 1 05/13/19 25 Active Gabapentin 100 MG Oral Capsule (Neurontin)Indica tions:Post herpetic neuralgia take 1 capsule in the morning 90 Capsule 1 11/28/19 24 2024 Disconti nued(Ref ill) Gabapentin 300 MG Oral Capsule (Neurontin)Indica tions:Post herpetic neuralgia Take 1 Capsule by mouth at bedtime. 90 Capsule 1 11/28/19 24 2024 Disconti nued(Ref ill) documented as of this encounter (statuses as of 05/24/2024) Active Problems Problem Noted Date Diagnosed Date Paroxysmal atrial fibrillation 05/10/2023 Vitamin D deficiency 04/27/2023 Elevated parathyroid hormone 04/27/2023 Immunization not carried out because of patient decision 08/30/2022 Chronic kidney disease, stage 3a 03/21/2022 Overview: Per CKD protocol Old peripheral tear of medial meniscus of left k nee 11/10/2020 Nonrheumatic aortic valve stenosis 08/11/2020 Primary hypertension 08/11/2020 PAF (paroxysmal atrial fibrillation) 06/10/2019 COPD, group B, by GOLD 2017 classification 04/22 Overview: Per COPD GOLD Classification Acquired hypothyroidism 10/15/2018 Overview (10/16/2018): TSH 17 Anticoagulant long-term use 06/21/2018 Chronic diastolic congestive heart failure 01/04 Presence of cardiac pacemaker 10/13/2017 Tachy-silvestre syndrome 10/10/2017 Pulmonary emphysema 09/11/2017 Overview (04/17/2019): In Check dial performed to assess inhaler technique: 04/17/19. Name of inhaler Anoro Elliptical Pass: Yes at 35L/min. Encouraged to take deep breath and rinse after steroid. Test performed by [employer] Diastolic dysfunction 08/01/2017 DIVERTICULOSIS OF COLON Family history of colon cancer Gastroesophageal reflux disease without esophagi tis GENERAL OSTEOARTHROSIS Sciatica Carpal tunnel syndrome documented as of this encounter (statuses as of 05/24/2024) Resolved Problems Problem Noted Date Diagnosed Date Resolved Date Atrial fibrillation, unspecified type 01/18/2022 04/26/2023 CKD (chronic kidney disease), stage II 04/08/2021 03/24/2022 Overview (04/26/2021): EGFR 69 Kidney disease, chronic, sta ge III (GFR 30-59 ml/min) 01/04/2018 11/23/2020 Prediabetes 07/18/2017 12/24/2020 Overview: Per Prediabetes protocol #1 Atrial fibrillation 07/13/2017 04/26/19 24 BENIGN NEOPLASM SKIN NOS 11/27/2002 BENIGN NEOPLASM LG BOWEL documented as of this encounter (statuses as of 05/24/2024) Immunizations Name Administration Dates Next Due TDAP (age 10 and older)(Boostrix) 04/05/2022,03/2017 documented as of this encounter Social History Tobacco Use Types Packs/Day Years Used Date Smoking Tobacco: Former Cigarettes 1 51 1 [birth year]/13/1969 - 03/12/2021 Smokeless Tobacco: Never Alcohol Use Standard Drinks/Week Comments Yes 1 (1 standard drink = 0.6 oz pur e alcohol) a beer ever once in awhile PHQ-2 Answer Date Recorded PHQ Adult Total Score 1 09/06/2023 Hunger Vital Sign Answer Date Recorded Within the past 12 months, y ou worried that your food would run out before you got the money to buy more. Never true 09/06/19 24 Within the past 12 months, t he food you bought just didn't last and you didn't have money to get more. Never true 09/06/2023 Childcare Answer Date Recorded Do you feel overwhelmed with taking care of a child, family member or friend? No 09/06/2023 Does your family need help f inding childcare? (Household - for ages 0-17 years) Not on file 09/06/2023 Clothing Answer Date Recorded Have you been unable to get clothing when it was really needed? No 09/06/2023 Is your family able to get c lothes or diapers when needed? (Household - for ages 0-17 years) Not on file 09/06/2023 Personal Safety Answer Date Recorded Do you feel unsafe or have concerns for your saf ety? No 09/06/2023 Do you have concerns for you r family's safety? (Household - for ages 0-17 years) Not on file 09/06/2023 Utilities Answer Date Recorded Do you have trouble paying y our heating, water, or electric bill? No 09/06/2023 Is your family able to pay t he heat, water, or electric bill? (Household - for ages 0-17 years) Not on file 09/06/2023 Does your family have access to good internet? (Household - for ages 0-17 years) Not on file 09/06/2023 Employment Status Answer Date Recorded Are you unemployed or without regular income? No 09/06/2023 Does the household have a re lar source of income? (Household - for ages 0-17 years) Not on file 09/06/2023 Social Connections Answer Date Recorded How often do you feel lonely or isolated from those around you? Sometimes 09/06/2023 Financial Resource Strain Answer Date R ecorded Do you have any trouble payi ng for your medications, or do you think you might in the future? No 09/06/2023 Does your family have troubl e paying for medicine? (Household - for ages 0-17 years) Not on file 09/06/2023 Transportation Needs Answer Date Record ed READ ONLY Do you have troubl e getting a ride to medical visits or work? Never True 09/06/2023 Does your family have a hard time getting a ride to doctors visits? (Household - for ages 0-17 years) Not on file 09/06/2023 Has lack of transportation k ept you from medical appointments, meetings, work, or from getting things needed for daily living? Check all that apply. (Adult - for ages 18 years and over) Not on file 09/06/2023 Do you (or your family) have trouble finding or paying for a ride (transportation)? (Household - for ages 0-17 years) Not on file 09/06/2023 Housing Stability Answer Date Recorded Do you currently live in a s helter or have no steady place to sleep at night? No 09/06/2023 READ ONLY Do you think you a re at risk of becoming homeless? No 09/06/2023 Does your family worry about paying for your home or becoming homeless? (Household - for ages 0-17 years) Not on file 0 09/06/2023 Are you homeless or worried that you might be in the future? (Adult - for ages 18 years and over) Not on file Are you (or your family) roshni eless or worried that you might be in the future? (Household - for ages 0-17 years) Not on file Food Insecurity Answer Date Recorded Do you need food for this week? No 09/06/2023 Are you able to get enough f ood for your family? (Household - for ages 0-17 years) Not on file 09/06/2023 Does your family need food t his week? (Household - for ages 0-17 years) Not on file 09/06/2023 Do you always have enough fo od for your family? (Household - for ages 0-17 years) Not on file 09/06/2023 Food Insecurity Answer Date Recorded Within the past 12 months, y ou worried that your food would run out before you got the money to buy more. Never true 09/06/19 24 Within the past 12 months, t he food you bought just didn't last and you didn't have money to get more. Never true 09/06/2023 Do you need food for this week? 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 I have sent a letter to the patient, on 05/24/24 so she may setup the appt. * Telephone Encounter - Arnaldo Landa OSA - 05/24/2024 9:10 AM EST LM for patient to call phone# [phone] * Telephone Encounter - Arnaldo Landa OSA - 05/23/2024 8:42 AM EST LM for patient to call the [phone] # to schedule. * Telephone Encounter - Jose A Beltre LPN - 05/22/2024 11:29 AM EST Called patient and informed of Price's message. Patient verbalized understanding. Patient has not noticed and improvement. CT ordered. Scheduling please assist. Lab ordered. ----- Message from Price De sent at 05/22/2024 11:28 AM EST ----- Labs are OK/stable Will need to keep a close eye on the liver tests noting current medications (amiodarone, atorvastatin, others). Check a comprehensive metabolic panel in 6-8 weeks Please see how patient is feeling following titration of furosemide. If no significant improvement,recommend high-resolution chest CT (WITHOUT contrast) to evaluate for amiodarone induced pulmonary toxicity. documented in this encounter Plan of Treatment Upcoming Encounters Date Type Department Care Team (Late st Contact Info) Description 06/20/2024 10:30 AM EDT Anticoagulation Pharmacy, [address] [place] [address] [place] [address] 07/08/2024 2:30 PM EDT Office Visit Cardiology, [facility] [address] [place] [address] Price De PA-C [address] [place] [address] 07/16/2024 8:50 AM EDT Office Visit Family Medicine [address] [place] [phone] Agnes Saavedra[address] [place] [address] 09/09/2024 10:30 AM EDT Nurse Only Ancillary [address] [place] [address] [place], Nurse [address] [place] [address] 09/24/2024 2:00 PM EDT Office Visit Cardiology [address] [place] [address] Price De PA-C [address] [place] [address] 03/19/2025 2:20 PM EST Office Visit Dermatology [address] [place] [address] Stacey Hathaway PA-C [address] [place] [address] [place] [address] Scheduled Orders Name Type Priority Associated Diagnoses Orde r Schedule COMPREHENSIVE METABOLIC PANEL Lab Routine Encounter for monitoring amiodarone therapy SOB (shortness of breath) Encounter for monitoring diuretic therapy Expected: 07/03/2024 (Approximate), Expires: 05/22/2025 CT CHEST WO CONTRAST Medical Imaging Routine Encounter for monitoring amiodarone therapy SOB (shortness of breath) Expected: 05/29/2024 (Approximate), Expires: 06/19/2025 Scheduled Procedures Name Priority Associated Diagnoses Date/Ti me COLONOSCOPY FLEXIBLE PROXIMA L DIAGNOSTIC Recall Encounter for screening colonoscopy Health Maintenance Due Date Last Done Comments DXA Scan 1945 Alpha-1 Antitrypsin 1965 Pneumococcal Vaccine: 50+ Years (1 of 2 - PCV) 1966 Zoster Vaccines (1 of 2) 1997 COVID-19 Vaccine (1 - season) 2023 Influenza Vaccine (FLU shot) (#1) 2023 CKD PHOS USE SMARTSET 55521 12/31/202312/10, 06/10/2019, 04/12/2018 Albumin/Creatinine Ratio 04/26/2024 024, 05/26/2022, 04/26/2021 Adult Wellness Visit 09/05/2024 09/06/2023, 08/31/19 23 Depression Screening 09/05/2024 09/06/2023, 09/06/19 24 GFR 11/18/2024 05/21/2024, 01/09, 01/16/2024, Additional history exists O2 ASSESSMENT COMPLETED IN PAST YEAR FOR COPD 11/27/2024 11/28/2023 CKD HGB USE SMARTSET [id number] 05/21/202505/21, 02/06/2024, 02/06/2024, Additional history exists TSH 05/21/2025 05/21/2024, 11/2023, 06/07/2023, Additional history exists DTap/Tdap Vaccines (3 - Td or Tdap) 04/05/2032 04/05/2022, 04/21/2016 Colonoscopy Discontinued 09/24/2015, 09/24/2015 Colorectal Cancer Screening Discontinued Fecal Occult Blood Test Discontinued 12/09/2020, 10/20 Lung Cancer Screening Completed 02/12/2024, 023 Cologuard Discontinued HPV (Gardasil) Vaccine Aged Out No lo nger eligible based on patient's age to complete this topic Hepatitis B Vaccine Aged Out No longe r eligible based on patient's age to complete this topic MENINGOCOCCAL (MENACTRA/MENVEO) Aged Out No longer eligible based on patient's age to complete this topic Meningitis B Vaccine (Bexsero/Trumemba) Aged Out No longer eligible based on patient's age to complete this topic Sigmoidoscopy Discontinued documented as of this encounter Medical Devices Not on filedocumented as of this encounter Visit Diagnoses Diagnosis SOB (shortness of breath)- Primary Shortness of breath Encounter for monitoring amiodarone therapy Encounter for therapeutic drug monitoring Encounter for monitoring diuretic therapy Encounter for therapeutic drug monitoring documented in this encounter Care Teams Director Employee Safety And Health Relationship Specialty Start Date End Date Agnes Saavedra DO [address] [place] [address] [place] [phone] PCP - General Internal Medicine 04/26/23 documented as of this encounter
--- OUTSIDE RECORDS SUMMARY | 2024-06-14 13:29 | External Medical Summary | Summary of Care ---
Author Name Unknown Organization [facility] Address [address] [place] [address] Phone [phone] Care Team Providers Care Gifted Teacher Name Role Phone Agnes Saavedra DO Primary Care Provider [phone] Reason for Referral * Precert (Within 10 days (routine)) - Authorized Specialty Diagnoses / Procedures Referred By Luciana t Referred To Contact Radiology Diagnoses Encounter for monitoring amiodarone therapy SOB (shortness of breath) Procedures CT CHEST WO CONTRAST Price De PA-C [address] [place] [address] Phone: tel: fax: Referral ID Status Reason Start Date Expiration Date V isits Requested Visits Authorized [id number] Authorized 05/29/[phone] Reason for Visit * Reason Onset Date Comments Test Results 05/22/2024 Encounter Details Date Type Department Care Team ([facility] st Contact Info) Description 05/22/2024 Telephone Cardiology, [facility] [address] [place] [address] Price De PA-C [address] [place] [address] Test Results Allergies Active Allergy Reactions Criticality Noted Date Comments Amoxicillin 04/13/2022 Severe itching Sulfamethoxazole-Trimethopri m 06/26/2018 Affected Kidneys Cephalexin 07/22/2020 Redness and flushing, diarrhea documented as of this encounter (statuses as of 05/23/2024) Medications CYANOCOBALAMIN (VITAMIN B-12) 100 MCG Tablet Take 1 Tablet by mouth in the morning. Active Vitamin C 500 MG Oral Tablet (Ascorbic Acid) Take 1 Tablet by mouth every other day. Active oxygen IN GASIndications:Ch ronic diastolic congestive heart failure (HCC),COPD, group B, by GOLD 2017 classification ([facility]) Use as directed 2 L/min(Oxygen) at bedtime as needed for Shortness of Breath. 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 90 Capsule 1 11/28/19 24 Active Atorvastatin Calcium 10 MG Oral Tablet (Lipitor)Indicati ons:Dyslipidemia TAKE ONE TABLET BY MOUTH IN THE MORNING 90 Tablet 3 12/05/19 24 Active Albuterol Sulfate HFA 108 (90 Base) MCG/ACT Inhalation Aerosol SolutionIndicatio ns:COPD, group B, by GOLD 2017 classification ([facility]) INHALE 2 PUFFS EVERY 4 HOURS NEEDED [...] ns:COPD, group B, by GOLD 2017 classification ([facility]) INHALE ONE PUFF BY MOUTH IN THE [...] Hour (toPROL XL)Indications:PA F (paroxysmal atrial fibrillation) (HCC) TAKE ONE TABLET BY MOUTH EVERY [...] only. 200 Tablet 1 05/13/19 25 Active documented as of this encounter (statuses as of 05/23/2024) Active Problems Problem Noted Date Diagnosed Date [...] rinse after steroid. 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 * Telephone Encounter - [...] Description 06/20/2024 10:30 AM EDT Anticoagulation Pharmacy, [address] [place] [address] [place] [address] 07/08/2024 2:30 PM EDT Office Visit Cardiology, [facility] [address] [place] [address] Price De PA-C [address] [place] [address] 07/16/2024 8:50 AM EDT Office Visit Family Medicine [address] [place] [phone] Agnes Saavedra [address] [place] [address] 09/09/2024 10:30 AM EDT Nurse Only Ancillary [address] [place] [address] [place], Nurse Annual Wellness [address] [place] [address] [place] [address] 09/24/2024 2:00 PM EDT Office Visit Cardiology [address] [place] [address] Price De PA-C [address] [place] [address] 03/19/2025 2:20 PM EST Office Visit Dermatology [address] [place] [address] Stacey Hathaway PA-C [address] [place] [address] [place] [address] Scheduled Orders Name Type Priority Associated Diagnoses [...] of 2) 1997 COVID-19 Vaccine (1 - 2023- season) 2023 Influenza Vaccine (FLU shot) (#1) 2023 CKD PHOS USE SMARTSET [id number] 12/31/202312/10, 06/10/2019, 04/12/2018 Albumin/Creatinine Ratio 04/26/2024 024, 05/26/2022, 04/26/2021 Adult Wellness Visit 09/05/2024 09/06/2023, 08/31/19 23 Depression Screening 09/05/2024 09/06/2023, 09/06/19 24 GFR 11/18/2024 05/21/2024, 01/09, 01/16/2024, Additional history exists O2 ASSESSMENT COMPLETED IN PAST YEAR FOR COPD 11/27/2024 11/28/2023 CKD HGB USE SMARTSET [id number] 05/21/202505/21, 02/06/2024, 02/06/2024, Additional history exists TSH [...] monitoring documented in this encounter Care Teams Gifted Teacher Relationship Specialty Start Date End Date Agnes Saavedra DO [address] [place] [address] [place] [address] PCP - General Internal Medicine 04/26/23 documented as of this encounter
--- OUTSIDE RECORDS SUMMARY | 2024-06-14 13:29 | External Medical Summary | Summary of Care ---
Author Name Unknown Organization [facility] Address [address] [place] [address] Phone [phone] Care Team Providers Care Balancing Machine Set Up Worker Name Role Phone Merle Puga DO Primary Care Provider [phone] Reason for Visit * Reason Onset Date Comments Medication Refill 05/24/2024 Encounter Details Date Type Department Care Team (Late st Contact Info) Description 05/24/2024 Refill Family Medicine [address] [place] [phone] Merle Puga DO [address] [place] [address] [place] [address] Post herpetic neuralgia Allergies Active Allergy Reactions Criticality Noted Date [...] (HCC),COPD, group B, by GOLD 2017 classification (HCC) Use as directed 2 L/min(Oxygen) at bedtime as needed for Shortness of Breath. 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 90 Capsule 1 05/24/19 25 Active Gabapentin 100 MG Oral Capsule (Neurontin)Indica tions:Post herpetic neuralgia take 1 capsule in the morning 90 Capsule 1 05/24/19 25 Active Gabapentin 100 MG Oral Capsule [...] rinse after steroid. 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 Authorizing Provider: MERLE PUGA Gabapentin 100 MG Oral Capsule (Neurontin) 90 Cap*1 Sig: take 1 capsule in the morning Authorizing Provider: MERLE PUGA * Telephone Encounter - Melani Santiago CMA - 05/24/2024 2:51 PM ESTPending Prescriptions: Disp Refills Gabapentin 300 MG Oral Capsule (Neurontin) 90 Cap*1 Sig: Take 1 Capsule by mouth at bedtime. Gabapentin 100 MG Oral Capsule (Neurontin) 90 Cap*1 Sig: take 1 capsule in the morning * Telephone Encounter - Karen Pina OSA - 05/24/2024 2:29 PM EST Did you pend patient's preferred pharmacy and medication before forwarding?yes Pharmacy: [id number] [address] [facility] Pending Prescriptions: Disp Refills Gabapentin 300 MG Oral Capsule (Neurontin)90 Cap*1 Sig: Take 1 Capsule by mouth at bedtime. Gabapentin 100 MG Oral Capsule (Neurontin)90 Cap*1 Sig: take 1 capsule in the morning Last Visit: 11/28/2023 (in office), 04/01/2021 (telemedicine) Next Visit: 07/16/2024 If no future appointments scheduled, and last appointment is greater than a year ago, please schedule patient for a follow-up appointment Last date the medication was ordered: 8.20.24 Is this request for a controlled substance?No Urine Drug Screen:No results found. However, due to the size of the patient record, not all encounters were searched. Please check Results Review for a complete set of results. Patient Phone Numbers Labs: Lab Results Component Value Date/Time CREAT 1.3 (H) 05/21/2024 12:58 PM CREAT 1.00 03/13/2021 12:00 AM CREAT 0.9 08/14/2019 10:21 AM POTASSIUM 4.8 05/21/2024 12:58 PM POTASSIUM 4.0 03/13/2021 12:00 AM POTASSIUM 3.9 08/14/2019 10:21 AM TSH 1.48 05/21/2024 12:58 PM TSH 1.190 03/13/2021 12:00 AM TSH 6.32 (H) 10/14/2019 04:21 PM TSH 1.13 06/20/1996 03:09 PM LDL 63 11/28/2023 03:45 PM LDL 95 10/14/2019 04:21 PM LDL NOT APPLICABLE 10/14/2019 04:21 PM ALT 37 (H) 05/21/2024 12:58 PM ALT 14 08/14/2019 10:21 AM HGBA1C 5.9 (H) 07/22/2020 03:28 PM HGBA1C 6.0 (H) 06/10/2019 01:27 PM documented in this encounter Plan of Treatment Upcoming Encounters Date Type Department Care Team (Late st Contact Info) Description 06/20/2024 10:30 AM EDT Anticoagulation Pharmacy, [address] [place] [address] [place] [address] 07/08/2024 2:30 PM EDT Office Visit Cardiology, [facility] [address] [place] [address] Price De PA-C [address] [place] [address] 07/16/2024 8:50 AM EDT Office Visit Family Medicine [address] [place] [phone] Merle Puga, [address] [place] [address] 09/09/2024 10:30 AM EDT Nurse Only Ancillary [address] [place] [address] [place], Nurse Annual Wellness [address] [place] [address] [place] [address] 09/24/2024 2:00 PM EDT Office Visit Cardiology [address] [place] [address] Price De PA-C [address] [place] [address] 03/19/2025 2:20 PM EST Office Visit Dermatology [address] [place] [address] Stacey Hathaway PA-C [address] [place] [address] [place] [address] Scheduled Procedures Name Priority Associated Diagnoses Date/Ti [...] shot) (#1) 2023 CKD PHOS USE SMARTSET [id number] 12/31/202312/10, 06/10/2019, 04/12/2018 Albumin/Creatinine Ratio 04/26/2024 024, 05/26/2022, 04/26/2021 Adult Wellness Visit 09/05/2024 09/06/2023, 08/31/19 23 Depression Screening 09/05/2024 09/06/2023, 09/06/19 24 GFR 11/18/2024 05/21/2024, 01/09, 01/16/2024, Additional history exists O2 ASSESSMENT COMPLETED IN PAST YEAR FOR COPD 11/27/2024 11/28/2023 CKD HGB USE SMARTSET 21174 05/21/202505/21, 02/06/2024, 02/06/2024, Additional history exists TSH [...] as of this encounter Visit Diagnoses Diagnosis Post herpetic neuralgia Herpes zoster with other nervous system complications documented in this encounter Care Teams Balancing Machine Set Up Worker Relationship Specialty Start Date End Date Merle Puga DO [address] [place] [address] [place] [phone] PCP - General Internal Medicine 04/26/23 documented as of this encounter
--- OUTSIDE RECORDS SUMMARY | 2024-06-14 13:29 | External Medical Summary | Summary of Care ---
Author Name Unknown Organization [facility] Address [address] [place] [address] Phone [phone] Care Team Providers Care Corrugator Helper Name Role Phone Agnes Saavedra Gonsalezstiven MCC[place] Primary Care Provider [phone] Reason for Referral * Precert (Within 10 days (routine)) - Authorized Specialty Diagnoses / Procedures Referred By Luciana t Referred To Contact Radiology Diagnoses Encounter for monitoring amiodarone therapy SOB (shortness of breath) Procedures CT CHEST WO CONTRAST Price De PA-C [address] [place] [address] Phone: tel: fax: Referral ID Status Reason Start Date Expiration Date V isits Requested Visits Authorized [id number] Authorized 05/29/[phone] Reason for Visit * Reason Onset Date Comments Test Results 05/22/2024 Encounter Details Date Type Department Care Team ([facility] st Contact Info) Description 05/22/2024 Telephone Cardiology, [facility] [address] [place] [address] Price De PA-C [address] [place] [address] Test Results Allergies Active Allergy Reactions Criticality [...] (HCC),COPD, group B, by GOLD 2017 classification ([facility]) Use as directed 2 L/min(Oxygen) at bedtime as needed for Shortness of Breath. Use at bedtime as needed and directed 1 Each 07/22/19 Active Additional Information Patient taking differently: 4 L/min(Oxygen)Nasal cannula HS PRN, Shortness of Breath, Use at bedtime as needed and directed, Reported on 03/11/2024 Warfarin Sodium 2 MG Oral Tablet (Coumadin)Indicat ions:Paroxysmal atrial fibrillation ([facility]),Atrial fibrillation, unspecified type (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) INHALE 2 PUFFS EVERY 4 HOURS NEEDED [...] ns:COPD, group B, by GOLD 2017 classification ([facility]) INHALE ONE PUFF BY MOUTH IN THE [...] rinse after steroid. 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 * Telephone Encounter - [...] Description 06/20/2024 10:30 AM EDT Anticoagulation Pharmacy, [address] [place] [address] [place] [address] 07/08/2024 2:30 PM EDT Office Visit Cardiology, [facility] [address] [place] [address] Price De PA-C [address] [place] [address] 07/16/2024 8:50 AM EDT Office Visit Family Medicine [address] [place] [phone] Agnes Saavedra, [address] [place] [address] 09/09/2024 10:30 AM EDT Nurse Only Ancillary [address] [place] [address] [place], Nurse Annual [address] [place] [address] 09/24/2024 2:00 PM EDT Office Visit Cardiology [address] [place] [address] Price De PA-C [address] [place] [address] 03/19/2025 2:20 PM EST Office Visit Dermatology [address] [place] [address] Stacey Hathaway PA-C [address] [place] [address] [place] [address] Scheduled Orders Name Type Priority Associated Diagnoses [...] shot) (#1) 2023 CKD PHOS USE SMARTSET 10430 12/31/202312/10, 06/10/2019, 04/12/2018 Albumin/Creatinine Ratio 04/26/2024 024, 05/26/2022, 04/26/2021 Adult Wellness Visit 09/05/2024 09/06/2023, 08/31/19 23 Depression Screening 09/05/2024 09/06/2023, 09/06/19 24 GFR 11/18/2024 05/21/2024, 01/09, 01/16/2024, Additional history exists O2 ASSESSMENT COMPLETED IN PAST YEAR FOR COPD 11/27/2024 11/28/2023 CKD HGB USE SMARTSET 16261 05/21/202505/21, 02/06/2024, 02/06/2024, Additional history exists TSH 05/21/2025 05/21/2024, 1011/2023, 06/07/2023, Additional history exists DTap/Tdap Vaccines (3 [...] monitoring documented in this encounter Care Teams Corrugator Helper Relationship Specialty Start Date End Date Agnes Saavedra DO [address] [place] [address] [place] [phone] PCP - General Internal Medicine 04/26/23 documented as of this encounter
--- OUTSIDE RECORDS SUMMARY | 2024-06-14 13:30 | External Medical Summary | Summary of Care ---
Author Name Unknown Organization [facility] Address [address] [place] [address] Phone [phone] Care Team Providers Care Welfare Eligibility Worker Name Role Phone Agnes Saavedra DO Primary Care Provider Reason for Visit * Reason Onset Date Comments Medication Refill 05/13/2024 Encounter Details Date Type Department Care Team (Late st Contact Info) Description 05/13/2024 Refill Family Medicine [address] [place] [phone] Agnes Saavedra DO [address] [place] [address] [place] [address] Bilateral lower extremity edema Allergies Active Allergy Reactions Criticality Noted Date Comments Amoxicillin 04/13/2022 Severe itching Sulfamethoxazole-Trimethopri m 06/26/2018 Affected Kidneys Cephalexin 07/22/2020 Redness and flushing, diarrhea documented as of this encounter (statuses as of 05/14/2024) Medications CYANOCOBALAMIN (VITAMIN B-12) 100 MCG Tablet [...] (HCC),Atrial fibrillation, unspecified type (HCC),Anticoagula tion 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,[facility] current use of anticoagulant therapy,Atrial fibrillation (HCC) [...] group B, by GOLD 2017 classification ([facility]) INHALE 2 PUFFS EVERY 4 HOURS [...] group B, by GOLD 2017 classification ([facility]) INHALE ONE PUFF BY MOUTH IN [...] only. 200 Tablet 1 05/13/19 25 Active Furosemide 20 MG Oral Tablet (Lasix)Indication s:Bilateral lower extremity edema Take 2 Tablets by mouth once a day on Monday, , Monday, and Monday only AND 3 Tablets once a day on Monday, Monday, and Monday only. 06/16/19 24 2024 Disconti nued(Ref ill) documented as of this encounter (statuses as of 05/14/2024) Active Problems Problem Noted Date Diagnosed Date [...] rinse after steroid. Test performed by Trudy [facility] CPFT Diastolic dysfunction 08/01/2017 DIVERTICULOSIS OF COLON Family history of colon cancer Gastroesophageal reflux disease without esophagi tis GENERAL OSTEOARTHROSIS Sciatica Carpal tunnel syndrome documented as of this encounter (statuses as of 05/14/2024) Resolved Problems Problem Noted Date Diagnosed Date [...] as of this encounter (statuses as of 05/14/2024) Immunizations Name Administration Dates Next Due TDAP [...] 09/06/2023 Does the household have a re gular source of income? 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 Authorizing Provider: SEPIDEH ROBERTS * Telephone Encounter - Soumya Cardona RN - 05/13/2024 11:06 AM ESTPending Prescriptions: Disp Refills Furosemide 20 MG Oral Tablet (Lasix) 200 Ta*1 Sig: Take 2 Tablets by mouth once a day on Monday, , Monday, and Monday only AND 3 Tablets once a day on Monday, Monday, and Monday only. * Telephone Encounter - Karen Pina OSA - 05/13/2024 10:33 AM EST Did you pend patient's preferred pharmacy and medication before forwarding?yes Pharmacy: [id number] [facility] Pending Prescriptions: Disp Refills Furosemide 20 MG Oral Tablet (Lasix) Sig: Take 2 Tablets by mouth once a day on Monday, , Monday, and Monday only AND 3 Tablets once a day on Monday, Monday, and Monday only. Last Visit: 11/28/2023 (in office), 04/01/2021 (telemedicine) Next Visit: 07/16/2024 If no future appointments scheduled, and last appointment is greater than a year ago, please schedule patient for a follow-up appointment Last date the medication was ordered: 3 Is this request for a controlled substance?No Urine Drug Screen:No results found. However, due to the size of the patient record, not all encounters were searched. Please check Results Review for a complete set of results. Patient Phone Numbers Labs: Lab Results Component Value Date/Time CREAT 1.2 (H) 02/06/2024 11:49 AM CREAT 1.00 03/13/2021 12:00 AM CREAT 0.9 08/14/2019 10:21 AM POTASSIUM 4.8 02/06/2024 11:49 AM POTASSIUM 4.0 03/13/2021 12:00 AM POTASSIUM 3.9 08/14/2019 10:21 AM TSH 1.12 01/16/2024 09:03 AM TSH 1.190 03/13/2021 12:00 AM TSH 6.32 (H) 10/14/2019 04:21 PM TSH 1.13 06/20/1996 03:09 PM LDL 63 11/28/2023 03:45 PM LDL 95 10/14/2019 04:21 PM LDL NOT APPLICABLE 10/14/2019 04:21 PM ALT 34 02/06/2024 11:49 AM ALT 14 08/14/2019 10:21 AM HGBA1C 5.9 (H) 07/22/2020 03:28 PM HGBA1C 6.0 (H) 06/10/2019 01:27 PM documented in this encounter Plan of Treatment Upcoming Encounters Date Type Department Care Team (Late st Contact Info) Description 06/20/2024 10:30 AM EDT Anticoagulation Pharmacy, [address] [place] [address] [place] [address] 07/08/2024 2:30 PM EDT Office Visit Cardiology, [facility] [address] [place] [address] Price De PA-C [address] [place] [address] 07/16/2024 8:50 AM EDT Office Visit Family Medicine [address] [place] [phone] [address] [place] [address] 09/09/2024 10:30 AM EDT Nurse Only Ancillary [address] [place] [address] Kristen, Nurse Annual Wellness [address] [place] [address] [place] [address] 09/24/2024 2:00 PM EDT Office Visit Cardiology [address] [place] [address] Price De PA-C [address] [place] [address] 03/19/2025 2:20 PM EST Office Visit Dermatology [address] [place] [address] Stacey Hathaway PA-C [address] [place] [address] [place] [address] Scheduled Procedures Name Priority Associated Diagnoses Date/Ti me COLONOSCOPY FLEXIBLE PROXIMA L DIAGNOSTIC Recall Encounter for screening colonoscopy Health Maintenance Due Date Last Done Comments DXA Scan 1945 Alpha-1 Antitrypsin 1965 Pneumococcal Vaccine: 50+ Years (1 of 2 - PCV) 1966 Zoster Vaccines (1 of 2) 1997 COVID-19 Vaccine (1 - season) 2023 Influenza Vaccine (FLU shot) (#1) 2023 CKD PHOS USE SMARTSET 16907 12/31/202312/10, 06/10/2019, 04/12/2018 Albumin/Creatinine Ratio 04/26/2024 024, 05/26/2022, 04/26/2021 GFR 08/06/2024 02/06/2024, 1011/2023, 11/28/2023, Additional history exists Adult Wellness Visit 09/05/2024 09/06/2023, 08/31/19 23 Depression Screening 09/05/2024 09/06/2023, 05/29/20 24 O2 ASSESSMENT COMPLETED IN PAST YEAR FOR COPD 11/27/2024 11/28/2023 TSH 01/15/2025 01/16/2024, 05/12, 04/26/2023, Additional history exists CKD HGB USE SMARTSET 63360 02/05/202502/05, 02/06/2024, 01/16/2024, Additional history exists DTap/Tdap Vaccines (3 - [...] as of this encounter Visit Diagnoses Diagnosis Bilateral lower extremity edema Edema documented in this encounter Care Teams Welfare Eligibility Worker Relationship Specialty Start Date End Date Agnes Saavedra DO [address] [place] [address] [place] [address] PCP - General Internal Medicine 04/26/23 documented as of this encounter
--- OUTSIDE RECORDS SUMMARY | 2024-06-14 13:30 | External Medical Summary | Summary of Care ---
Author Name Unknown Organization [facility] Address [address] [place] [address] Phone [phone] Care Team Providers Care Staffing Rn Name Role Phone Agnes Saavedra DO Primary Care Provider [phone] Reason for Referral * Precert (Within 10 days (routine)) - Authorized Specialty Diagnoses / Procedures Referred By Luciana t Referred To Contact Radiology Diagnoses Encounter for monitoring amiodarone therapy SOB (shortness of breath) Procedures CT CHEST WO CONTRAST Price De PA-C [address] [place] [address] Phone: tel: fax: Referral ID Status Reason Start Date Expiration Date V isits Requested Visits Authorized [id number] Authorized 05/29/2024 999 999 Reason for Visit * Reason Onset Date Comments Test Results 05/22/2024 Encounter Details Date Type Department Care Team ([facility] st Contact Info) Description 05/22/2024 Telephone Cardiology, [facility] [address] [place] [address] Price De PA-C [address] [place] [address] Test Results Allergies Active Allergy Reactions Criticality Noted Date Comments Amoxicillin 04/13/2022 Severe itching Sulfamethoxazole-Trimethopri m 06/26/2018 Affected Kidneys Cephalexin 07/22/2020 Redness and flushing, diarrhea documented as of this encounter (statuses as of 05/22/2024) Medications CYANOCOBALAMIN (VITAMIN B-12) 100 MCG Tablet Take 1 Tablet by mouth in the morning. Active Vitamin C 500 MG Oral Tablet (Ascorbic Acid) Take 1 Tablet by mouth every other day. Active oxygen IN GASIndications:Ch ronic diastolic congestive heart failure (HCC),COPD, group B, by GOLD 2017 classification ([facility]) Use as directed 2 L/min(Oxygen) at bedtime as needed for Shortness of Breath. Use at bedtime as needed and directed 1 Each 07/22/19 Active Additional Information Patient taking differently: 4 L/min(Oxygen)Nasal cannula HS PRN, Shortness of Breath, Use at bedtime as needed and directed, Reported on 03/11/2024 Warfarin Sodium 2 MG Oral Tablet (Coumadin)Indicat ions:Paroxysmal atrial fibrillation ([facility]),Atrial fibrillation, unspecified type (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) INHALE 2 PUFFS EVERY 4 HOURS [...] ns:COPD, group B, by GOLD 2017 classification ([facility]) INHALE ONE PUFF BY MOUTH IN [...] as of this encounter (statuses as of 05/22/2024) Active Problems Problem Noted Date Diagnosed Date [...] rinse after steroid. 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 Not on file Not on file documented as of this encounter Miscellaneous Notes * Telephone Encounter - Jose A Beltre [...] Description 06/20/2024 10:30 AM EDT Anticoagulation Pharmacy, [address] [place] [address] [place] [address] 07/08/2024 2:30 PM EDT Office Visit Cardiology, [facility] [address] [address] Price De PA-C [address] [place] [address] 07/16/2024 8:50 AM EDT Office Visit Family Medicine [address] [place] [phone] [address] [place] [address] 09/09/2024 10:30 AM EDT Nurse Only Ancillary [address] [place] [address] [place], Nurse Annual Wellness [address] [place] [address] [place] [address] 09/24/2024 2:00 PM EDT Office Visit Cardiology [address] [place] [address] Price De, [place] [address] [place] [address] 03/19/2025 2:20 PM EST Office Visit Dermatology [address] [place] [address] Stacey Hathaway PA-C [address] [place] [address] [place] [address] Scheduled Orders Name Type Priority Associated Diagnoses [...] shot) (#1) 2023 CKD PHOS USE SMARTSET 12079 12/31/202312/10, 06/10/2019, 04/12/2018 Albumin/Creatinine Ratio 04/26/2024 024, 05/26/2022, 04/26/2021 Adult Wellness Visit 09/05/2024 09/06/2023, 08/31/19 23 Depression Screening 09/05/2024 09/06/2023, 09/06/19 24 GFR 11/18/2024 05/21/2024, 01/09, 01/16/2024, Additional history exists O2 ASSESSMENT COMPLETED IN PAST YEAR FOR COPD 11/27/2024 11/28/2023 CKD HGB USE SMARTSET 40835 05/21/202505/21, 02/06/2024, 02/06/2024, Additional history exists TSH [...] monitoring documented in this encounter Care Teams Staffing Rn Relationship Specialty Start Date End Date Agnes Saavedra DO [address] [place] [address] [place] [address] PCP - General Internal Medicine 04/26/23 documented as of this encounter
--- OUTSIDE RECORDS SUMMARY | 2024-06-14 13:30 | External Medical Summary ---
Author Name Unknown Address Unknown Organization K01:[facility] - [address] [place] [address] Laboratory Report Ordering Provider Test Date Status ZEYAD PRO 05/21/2024 12:58:37 Final Exclude Heart Failure: <300 pg/mL
Diagnose Heart Failure:
Age <50 yr: >450 pg/mL
50-75 yr: >900 pg/mL
>75 yr: >1800 pg/mL
GFR is 30-59 mL/min: >1200 pg/mL or Age- adjusted values
GFR <30 mL/min: do not use, not reliable

Prognostic threshold: 1000 pg/mL Observation Date Value Abnormality Reference (Units ) Status BNP, Pro-hormone 05/21/2024 12:58:37 628 Above high no rmal <300 (pg/mL) Final Performing Location [facility] - [address] [place] [address]
--- OUTSIDE RECORDS SUMMARY | 2024-06-14 13:30 | External Medical Summary | Summary of Care ---
Author Name Unknown Organization [facility] Address [address] [facility] [address] Phone [phone] Care Team Providers Care Reports Analysis Manager Name Role Phone Jammie Saavedrathony Gonsalez Primary Care Provider Reason for Visit * Reason Comments Outpatient Testing Encounter Details Date Type Department Care Team (Late st Contact Info) Description 05/21/2024 1:00 PM EST Laboratory Laboratory [address] [place] [phone] [place] [address] Shortness of breath; Encounter for monitoring amiodarone therapy; Encounter for monitoring diuretic therapy Allergies Active Allergy Reactions Criticality Noted Date Comments Amoxicillin 04/13/2022 Severe itching Sulfamethoxazole-Trimethopri m 06/26/2018 Affected Kidneys Cephalexin 07/22/2020 Redness and flushing, diarrhea documented as of this encounter (statuses as of 05/21/2024) Medications CYANOCOBALAMIN (VITAMIN B-12) 100 MCG Tablet [...] (HCC),Atrial fibrillation, unspecified type (HCC),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 Not on file Not on file documented as of this encounter Plan of Treatment Upcoming Encounters Date Type Department Care Team (Late st Contact Info) Description 06/20/2024 10:30 AM EDT Anticoagulation Pharmacy, [address] [place] [address] [place] [address] 07/08/2024 2:30 PM EDT Office Visit Cardiology, [facility] [address] [place] [address] Price De PA-C [address] [place] [place] [address] 07/16/2024 8:50 AM EDT Office Visit Family Medicine [address] [place] [phone] Agnes Saavedra[address] [place] [address] 09/09/2024 10:30 AM EDT Nurse Only Ancillary [address] [place] [address] [place], Nurse Annual Wellness [address] [place] [address] [place] [address] 09/24/2024 2:00 PM EDT Office Visit Cardiology [address] [place] [address] Price De PA-C [address] [place] [address] 03/19/2025 2:20 PM EST Office Visit Dermatology [address] [place] [address] Stacey Hathaway PA-C [address] [place] [address] [place] [address] Pending Results Name Type Priority Associated Diagnoses Date /Time CBC Lab Routine Shortness of breath 05/21/2024 12:58 PM EST BNP, NT-PRO Lab Routine Shortness of breath 05/21/2024 12:58 PM EST COMPREHENSIVE METABOLIC PANEL Lab Routine Shortness of breath Encounter for monitoring amiodarone therapy 05/21/2024 12:58 PM EST TSH Lab Routine Encounter for monitoring amiodarone therapy 05/21/2024 12:58 PM EST Scheduled Procedures Name Priority Associated Diagnoses Date/Ti [...] shot) (#1) 2023 CKD PHOS USE SMARTSET 47874 12/31/202312/10, 06/10/2019, 04/12/2018 Albumin/Creatinine Ratio 04/26/2024 024, 05/26/2022, 04/26/2021 GFR 08/06/2024 02/06/2024, 11/2023, 11/28/2023, Additional history exists Adult Wellness Visit 09/05/2024 09/06/2023, 08/31/19 23 Depression Screening 09/05/2024 09/06/2023, 09/06/19 24 O2 ASSESSMENT COMPLETED IN PAST YEAR FOR COPD 11/27/2024 11/28/2023 TSH 01/15/2025 01/16/2024, 05/12, 04/26/2023, Additional history exists CKD HGB USE SMARTSET 91472 02/05/202502/05, 02/06/2024, 01/16/2024, Additional history exists DTap/Tdap [...] as of this encounter Visit Diagnoses Diagnosis Shortness of breath Encounter for monitoring amiodarone therapy Encounter for therapeutic drug monitoring Encounter for monitoring diuretic therapy Encounter for therapeutic drug monitoring documented in this encounter Care Teams Reports Analysis Manager Relationship Specialty Start Date End Date Agnes Saavedra DO [address] [place] [address] [place] [phone] PCP - General Internal Medicine 04/26/23 documented as of this encounter
--- OUTSIDE RECORDS SUMMARY | 2024-06-14 13:30 | External Medical Summary | Summary of Care ---
Author Name Unknown Organization [facility] Address [address] [place] [address] Phone [phone] Care Team Providers Care Window Covering Sales Consultant Name Role Phone Agnes Saavedra Primary Care Provider Reason for Visit * Reason Onset Date Comments Follow Up 05/02/2024 Encounter Details Date Type Department Care Team (Late st Contact Info) Description 05/02/2024 Telephone Cardiology, [facility] [address] [facility] [place] [address] Main Almeida DO [address] [facility] [place] [address] Follow Up Allergies Active Allergy Reactions Criticality Noted Date [...] mouth every other day. Active oxygen IN GASIndications:C hronic diastolic congestive heart failure (HCC),COPD, group B, by GOLD 2017 classification (HCC) Use as directed 2 L/min(Oxygen) at bedtime as needed for Shortness of Breath. 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 90 Capsule 1 024 Active Atorvastatin Calcium 10 MG Oral Tablet (Lipitor)Indicat ions:Dyslipidemi a TAKE ONE TABLET BY MOUTH IN THE MORNING 90 Tablet 3 024 Active Albuterol Sulfate HFA 108 (90 Base) MCG/ACT Inhalation Aerosol SolutionIndicati ons:COPD, group B, by GOLD 2017 classification ([facility]) INHALE 2 PUFFS EVERY 4 HOURS NEEDED SHORTNESS OF BREATH OR WHEEZING. 18 g 3 024 Active Diclofenac Sodium 1 % External Gel (Voltaren) Apply topically to affected area 4 times a day as needed for Pain. Apply to left knee 100 g 5 024 Active Potassium Chloride Bhavana ER 10 MEQ Oral Tablet Extended Release Take 1 Tablet by mouth in the morning. 90 Tablet 3 024 Active Anoro Ellipta 62.5-25 MCG/ACT Inhalation Aerosol Powder Breath Activated (umeclidinium-vi lanterol)Indicat ions:COPD, group B, by GOLD 2017 classification ([facility]) INHALE ONE PUFF BY MOUTH IN THE MORNING 180 Each 1 024 Active Levothyroxine Sodium 75 MCG Oral Tablet (Levoxyl)Indicat ions:Acquired hypothyroidism take 1 tablet in the morning at least 30 minutes before breakfast or other medications. 90 Tablet 1 024 Active Nitrofurantoin Monohyd Macro 100 MG Oral Capsule (Macrobid) Take 1 Capsule by mouth 2 times a day. With meals 10 Capsule 024 Active Sertraline HCl 50 MG Oral Tablet (Zoloft) TAKE ONE TABLET BY MOUTH IN THE MORNING 90 Tablet 1 024 Active Fluticasone Propionate 50 MCG/ACT Nasal Suspension (Flonase)Indicat ions:Seasonal allergies Administer 2 Sprays into each nostril in the morning. 48 g 1 024 Active Famotidine 20 MG Oral Tablet (Pepcid)Indicati ons:GERD (gastroesophagea l reflux disease) Take 1 Tablet by mouth in the morning. 90 Tablet 1 024 Active Clindamycin Phosphate 1 % External GelIndications:F olliculitis Apply to each open areas on body and scalp 2x daily (or more when itchy instead of rubbing/picking/s cratching at areas) 60 g 3 024 Active Ketoconazole 2 % External Shampoo (Nizoral)Indicat ions:H/O seborrheic dermatitis Massage into scalp and rinse out after 5 minutes--do 3 times weekly Strength: 2 % 120 mL 3 024 Active Triamcinolone Acetonide 0.1 % External Ointment (Aristocort)Chel cations:Pruritus ,Multiple excoriations Apply to open and itchy areas instead of scratching at them (2x daily or more if needed) 454 g 024 Active Ramipril 2.5 MG Oral Capsule (Altace)Indicati ons:Stage 3a chronic kidney disease (HCC) TAKE ONE CAPSULE BY MOUTH EVERY DAY 90 Capsule 1 024 Active Metoprolol Succinate ER 25 MG Oral Tablet Extended Release 24 Hour (toPROL XL)Indications:P AF (paroxysmal atrial fibrillation) ([facility]) TAKE ONE TABLET BY MOUTH EVERY DAY 90 Tablet 3 024 Active Omeprazole 40 MG Oral Capsule Delayed Release (PriLOSEC)Indica tions:Gastroesop hageal reflux disease without esophagitis TAKE ONE CAPSULE BY MOUTH TWICE DAILY 180 Capsule 1 024 Active Vitamin D3 50 MCG (2000 UT) Oral Capsule Take 1 Capsule by mouth in the morning. 025 Active Amiodarone HCl 200 MG Oral Tablet (Cordarone)Indic ations:Paroxysma l atrial fibrillation (HCC) TAKE ONE TABLET BY MOUTH EVERY DAY 90 Tablet 3 024 2024 Discontinued Furosemide 20 MG Oral Tablet (Lasix)Indicatio ns:Bilateral lower extremity edema Take 2 Tablets by mouth once a day on Monday, , Monday, and Monday only AND 3 Tablets once a day on Monday, Monday, and Monday only. 024 2024 Discontinued( Refill) documented as of this encounter (statuses as [...] rinse after steroid. 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 Patient is scheduled on: RETURN CARDIOLOGY at 2:30 PM (30 min)Arrive by 2:15 PM Monday July 08, 2024 Appointment Provider:Inocencia Jeffers PA-C in CARDIOLOGY [facility] * Telephone Encounter - Inocencia Jeffers PA-C - 05/10/2024 4:44 PM EST [place], ? Mid May Inocencia Jeffers PA-C Department of Cardiology * Result Encounter Note - Inocencia Jeffers PA-C - 05/10/2024 4:32 PM EST Increase furosemide to 80 mg/day x 3 days then 60 mg daily thereafter Basic metabolic panel in 7-10 days If no improvement with the above would recommend high-resolution chest CT without contrast to evaluate for amiodarone induced pulmonary toxicity. * Telephone Encounter - Arnaldo Landa OSA - 05/10/2024 4:16 PM EST Please advise, patient does not have transportation to due to her being "broken-down". If she isunable to be seen here at , I do not have any openings at [facility] either. Is the appt in September okfor now? Thank you. * Addendum Note - Inocencia Jeffers PA-C - 05/08/2024 4:43 PM ESTAddended by: INOCENCIA JEFFERS on: 05/08/2024 04:43 PM Modules accepted: Orders * Telephone Encounter - Inocencia Jeffers PA-C - 05/08/2024 4:34 PM EST Patient called personally. Attributes dyspnea to lung disease and being overweight. Notes a dry annoying cough as well as dizziness, occasional palpitations, increased fatigue. Fluid seems controlledto patient. Options of management discussed. Plan as outlined below: Start with PA and lateral chest x-ray and laboratory work, in [place]. Hold ramipril, RE: Cough, dizziness Increase metoprolol succinate to 37.5 mg/day Please schedule a sooner appointment in [place] Future considerations include but are not limited to high-resolution chest CT without contrast, to evaluate for amiodarone induced pulmonary issues Inocencia Jeffers PA-C Department of Cardiology * Telephone Encounter - Mary Kraft LPN - 05/08/2024 12:26 PM EST Spoke with pt by phone, dry cough, occasional abdominal edema comes and goes. Does not have a scaleto weigh daily. Pt does notice increased palpitations, SOB and fatigue is worse with palpitations. Pt is noticing more frequent episodes of afib, this is reflected in 05/02 pacemaker remote. Attempted to schedule with Inocencia Jeffers PA-C offered 06/10/24 at [facility], pt is unable to get to [facility] due to car/transportation. Would like visit in [facility]. * Telephone Encounter - Main Almeida DO - 05/06/2024 4:49 PM EST Cardiology nursing and scheduling, please help move up patient's follow-up visit. Main Almeida DO * Telephone Encounter - Sofia Shankar LPN - 05/02/2024 3:31 PM EST Spoke with Pt-states she is just more tired and gets out of breath fast. She is still taking the eliquis and metprolol. She hasn't missed any. She is very out of breath on the phone. * Telephone Encounter - Main Almeida DO - 05/02/2024 3:15 PM EST Cardiology nursing: Please reach out to patient by phone. Remote interrogation of her pacemaker reveals more frequent episodes of paroxysmal atrial fibrillation in the last calendar month. Please askher how she is feeling with regards to palpitations. Please ensure compliance with her Eliquis and m etoprolol. Main Almeida DO documented in this encounter Plan of Treatment Upcoming Encounters Date Type Department Care Team (Late st Contact Info) Description 06/20/2024 10:30 AM EDT Anticoagulation Pharmacy, [address] [place] [address] [place] [address] 07/08/2024 2:30 PM EDT Office Visit Cardiology, [facility] [address] [place] [address] Inocencia Jeffers PA-C [address] [place] [address] 07/16/2024 8:50 AM EDT Office Visit Family Medicine [address] [place] [phone] Agnes Saavedra[address] [place] [address] 09/09/2024 10:30 AM EDT Nurse Only Ancillary [address] [place] [address] [place], Nurse [address] [place] [address] 09/24/2024 2:00 PM EDT Office Visit Cardiology [address] [place] [address] Inocencia Jeffers PA-C [address] [address] 03/19/2025 2:20 PM EST Office Visit Dermatology [address] [place] [address] Stacey Hathaway PA-C [address] [place] [address] [place] [address] Scheduled Orders Name Type Priority Associated Diagnoses Orde r Schedule CBC Lab Routine Shortness of breath Expected: 05/08/2024, Expires: 05/08/2025 BNP, NT-PRO Lab Routine Shortness of breath Expected: 05/08/2024, Expires: 05/08/2025 COMPREHENSIVE METABOLIC PANEL Lab Routine Shortness of breath Encounter for monitoring amiodarone therapy Expected: 05/08/2024, Expires: 05/08/2025 TSH Lab Routine Encounter for monitoring amiodarone therapy Expected: 05/08/2024, Expires: 05/08/2025 Scheduled Procedures Name Priority Associated Diagnoses Date/Ti me COLONOSCOPY FLEXIBLE PROXIMA L DIAGNOSTIC Recall Encounter for screening colonoscopy Health Maintenance Due Date Last Done Comments DXA Scan 1945 Alpha-1 Antitrypsin 1965 Pneumococcal Vaccine: 50+ Years (1 of 2 - PCV) 1966 Zoster Vaccines (1 of 2) 1997 COVID-19 Vaccine (1 - season) 2023 Influenza Vaccine (FLU shot) (#1) 2023 CKD PHOS USE SMARTSET 05229 12/31/202312/10, 06/10/2019, 04/12/2018 Albumin/Creatinine Ratio 04/26/2024 024, 05/26/2022, 04/26/2021 GFR 08/06/2024 02/06/2024, 11/2023, 11/28/2023, Additional history exists Adult Wellness Visit 09/05/2024 09/06/2023, 08/31/19 23 Depression Screening 09/05/2024 09/06/2023, 09/06/19 24 O2 ASSESSMENT COMPLETED IN PAST YEAR FOR COPD 11/27/2024 11/28/2023 TSH 01/15/2025 01/16/2024, 05/12, 04/26/2023, Additional history exists CKD HGB USE SMARTSET 45298 02/05/202502/05, 02/06/2024, 01/16/2024, Additional history exists DTap/Tdap [...] Not on filedocumented as of this encounter Procedures Procedure Name Priority Date/Time Associated Diagnosis Comments XR CHEST 2 VIEWS Routine 05/10/2024 2:23 PM EST Shortness of breath documented in this encounter Results * XR CHEST 2 VIEWS (05/10/2024 2:23 PM EST) Anatomical Region Laterality Modality Chest Computed Radiogr aphy 05/10/2024 2:36 PM EST Impressions 05/10/2024 2:34 PM EST IMPRESSION 1. Mild/Moderate pulmonary edema. 2. Additional findings as above. Narrative 05/10/2024 2:34 PM EST EXAM XR CHEST 2 VIEWS-05/10/2024 2:23 pm HISTORY Shortness of breath COMPARISON CT CHEST LOW DOSE SCAN LUNG CANCER SCREEN INITIAL, ACC: [id number], dated 2024-02-12 10:49:01; XR CHEST 2 VIEWS, ACC: [id number], dated 2023-01-04 10:47:03; CT CHEST WO CONTRAST, ACC: [id number], dated 2022-04-15 10:57:56 TECHNIQUE Radiography of the chest. XR CHEST 2 VIEWS FINDINGS No acute focal consolidation. Lower lung ground-glass and septal thickening likely reflecting mild/moderate pulmonary edema. No pneumothorax observed. Stable cardiomediastinal silhouette with left atrial enlargement. Left chest wall pacemaker as before..No acute osseous abnormality. Small bilateral pleural effusions. Procedure Note Rafy Moss MD - 05/10/2024 EXAM XR CHEST 2 VIEWS-05/10/2024 2:23 pm HISTORY Shortness of breath COMPARISON CT CHEST LOW DOSE SCAN LUNG CANCER SCREEN INITIAL, ACC: [id number], [id number] 10:49:01; XR CHEST 2 VIEWS, ACC: [id number], dated 2023-01-04 10:47:03; CT CHEST WO CONTRAST, ACC: [id number], dated 2022-04-15 10:57:56 TECHNIQUE Radiography of the chest. XR CHEST 2 VIEWS FINDINGS No acute focal consolidation. Lower lung ground-glass and septalthickening likely reflecting mild/moderate pulmonary edema. Nopneumothorax observed. Stable cardiomediastinal silhouette with leftatrial enlargement. Left chest wall pacemaker as before..No acute osseousabnormality. Small bilateral pleural effusions. IMPRESSION IMPRESSION 1. Mild/Moderate pulmonary edema. 2. Additional findings as above. Inocencia Jeffers PA-C RADIOLOGY ([facility]) Fin al Result documented in this encounter Visit Diagnoses Diagnosis Shortness of breath- Primary Encounter for monitoring amiodarone therapy Encounter for therapeutic drug monitoring documented in this encounter Care Teams Window Covering Sales Consultant Relationship Specialty Start Date End Date Agnes Saavedra DO [address] [place] [address] [place] [address] PCP - General Internal Medicine 04/26/23 documented as of this encounter
--- OUTSIDE RECORDS SUMMARY | 2024-06-14 13:30 | External Medical Summary | Summary of Care ---
Author Name Unknown Organization [facility] Address [address] [place] [address] Phone [phone] Care Team Providers Care Guide Tour Name Role Phone Agnes Saavedra Primary Care Provider [phone] Reason for Visit * Reason Onset Date Comments Follow Up 05/02/2024 Encounter Details Date Type Department Care Team (Late st Contact Info) Description 05/02/2024 Telephone Cardiology, 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 Mid May Inocencia Jeffers PA-C Department [...] I do not have any openings at [facility] either. Is the appt in September [...] lateral chest x-ray and laboratory work, in [place]. Hold ramipril, RE: Cough, dizziness Increase metoprolol succinate to 37.5 mg/day Please schedule a sooner appointment in [place] Future considerations include but are not limited [...] with Inocencia Jeffers PA-C offered 06/10/[facility] at [facility], pt is unable to get to [facility] due to car/transportation. Would like visit in [facility]. * Telephone Encounter - Main Almeida DO [...] Description 06/20/2024 10:30 AM EDT Anticoagulation Pharmacy, [address] [place] [address] [place] [address] 07/08/2024 2:30 PM EDT Office Visit Cardiology, [facility] [address] [place] [address] Inocencia Jeffers PA-C [address] [place] [address] 07/16/2024 8:50 AM EDT Office Visit Family Medicine [address] [place] [phone] Agnes Sa[address] [place] [address] 09/09/2024 10:30 AM EDT Nurse Only Ancillary [address] [place] [address] [place], Nurse [address] [place] [address] 09/24/2024 2:00 PM EDT Office Visit Cardiology [address] [place] [address] Inocencia Jeffers PA-C [address] [address] 03/19/2025 2:20 PM EST Office Visit Dermatology [address] [place] [address] Stacey Hathaway PA-C [address] [place] [address] [place] [address] Scheduled Orders Name Type Priority Associated Diagnoses [...] shot) (#1) 2023 CKD PHOS USE SMARTSET 70542 12/31/202312/10, 06/10/2019, 04/12/2018 Albumin/Creatinine Ratio 04/26/2024 024, 05/26/2022, 04/26/2021 GFR 08/06/2024 02/06/2024, 11/2023, 11/28/2023, Additional history exists Adult Wellness Visit 09/05/2024 09/06/2023, 08/31/19 23 Depression Screening 09/05/2024 09/06/2023, 09/06/19 24 O2 ASSESSMENT COMPLETED IN PAST YEAR FOR COPD 11/27/2024 11/28/2023 TSH 01/15/2025 01/16/2024, 05/12, 04/26/2023, Additional history exists CKD HGB USE SMARTSET 29628 02/05/202502/05, 02/06/2024, 01/16/2024, Additional history exists DTap/Tdap [...] DOSE SCAN LUNG CANCER SCREEN INITIAL, ACC: [id number], dated 2024-02-12 10:49:01; XR CHEST 2 VIEWS, ACC: [id number], dated 2023-01-04 10:47:03; CT CHEST WO CONTRAST, ACC: [id number], dated 2022-04-15 10:57:56 TECHNIQUE Radiography of the [...] DOSE SCAN LUNG CANCER SCREEN INITIAL, ACC: [id number], [id number] 10:49:01; XR CHEST 2 VIEWS, ACC: [id number], dated 2023-01-04 10:47:03; CT CHEST WO CONTRAST, ACC: [id number], dated 2022-04-15 10:57:56 TECHNIQUE Radiography of the [...] monitoring documented in this encounter Care Teams Guide Tour Relationship Specialty Start Date End Date Agnes Saavedra DO [address] [place] [address] [place] [address] PCP - General Internal Medicine 04/26/23 documented as of this encounter
--- OUTSIDE RECORDS SUMMARY | 2024-06-14 13:30 | External Medical Summary | Summary of Care ---
Author Name Unknown Organization [facility] Address [address] [place] [address] Phone [phone] Care Team Providers Care Dyehouse Worker Name Role Phone Agnes Saavedra Primary Care Provider Reason for Visit * Reason Onset Date Comments Follow Up 05/02/2024 Encounter Details Date Type Department Care Team (Late st Contact Info) Description 05/02/2024 Telephone Cardiology, [facility] [address] [facility] [place] [address] Main Almeida DO [address] [place] [address] Follow Up Allergies Active Allergy Reactions Criticality [...] fibrillation, unspecified type (HCC),Anticoagul ation 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,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 Mid May Inocencia Jeffers PA-C Department [...] I do not have any openings at [facility] either. Is the appt in [...] lateral chest x-ray and laboratory work, in [place]. Hold ramipril, RE: Cough, dizziness Increase metoprolol succinate to 37.5 mg/day Please schedule a sooner appointment in [place] Future considerations include but are not limited [...] pacemaker remote. Attempted to schedule with Inocencia eJffers PA-C offered 06/10/24 at [facility], pt is unable to get to [facility] due to car/transportation. Would like visit in [facility]. * Telephone Encounter - Main Almeida [...] Description 06/20/2024 10:30 AM EDT Anticoagulation Pharmacy, [address] [place] [address] [address] [place] [address] 07/08/2024 2:30 PM EDT Office Visit Cardiology, [facility] [address] [place] [address] Inocencia Jeffers PA-C [address] [place] [address] 07/16/2024 8:50 AM EDT Office Visit Family Medicine [address] [place] [phone] Agnes [address] [place] [address] 09/09/2024 10:30 AM EDT Nurse Only Ancillary [address] [place] [address] [place], Nurse [address] [place] [address] 09/24/2024 2:00 PM EDT Office Visit Cardiology [address] [place] [address] Inocencia Jeffers PA-C [address] [address] 03/19/2025 2:20 PM EST Office Visit Dermatology [address] [place] [address] Stacey Hathaway PA-C [address] [place] [address] [place] [address] Scheduled Orders Name Type Priority Associated Diagnoses [...] shot) (#1) 2023 CKD PHOS USE SMARTSET 61453 12/31/202312/10, 06/10/2019, 04/12/2018 Albumin/Creatinine Ratio 04/26/2024 024, 05/26/2022, 04/26/2021 GFR 08/06/2024 02/06/2024, 11/2023, 11/28/2023, Additional history exists Adult Wellness Visit 09/05/2024 09/06/2023, 08/31/19 23 Depression Screening 09/05/2024 09/06/2023, 09/06/19 24 O2 ASSESSMENT COMPLETED IN PAST YEAR FOR COPD 11/27/2024 11/28/2023 TSH 01/15/2025 01/16/2024, 05/12, 04/26/2023, Additional history exists CKD HGB USE SMARTSET 332[address] 02/05/202502/05, 02/06/2024, 01/16/2024, Additional history exists DTap/Tdap [...] DOSE SCAN LUNG CANCER SCREEN INITIAL, ACC: [id number], dated 2024-02-12 10:49:01; XR CHEST 2 VIEWS, ACC: [id number], dated 2023-01-04 10:47:03; CT CHEST WO CONTRAST, ACC: [id number], dated 2022-04-15 10:57:56 TECHNIQUE Radiography of the [...] DOSE SCAN LUNG CANCER SCREEN INITIAL, ACC: [id number], [id number] 10:49:01; XR CHEST 2 VIEWS, ACC: [id number], dated 2023-01-04 10:47:03; CT CHEST WO CONTRAST, ACC: [id number], dated 2022-04-15 10:57:56 TECHNIQUE Radiography of the [...] monitoring documented in this encounter Care Teams Dyehouse Worker Relationship Specialty Start Date End Date Agnes Saavedra DO [address] [place] [address] [place] [address] PCP - General Internal Medicine 04/26/23 documented as of this encounter
--- OUTSIDE RECORDS SUMMARY | 2024-06-14 13:30 | External Medical Summary | Summary of Care ---
Author Name Unknown Organization [facility] Address [address] [place] [address] Phone [phone] Care Team Providers Care Dial Refinisher Name Role Phone Agnes Saavedra DO Primary Care Provider [phone] Reason for Referral * Precert (Within 10 days (routine)) - Authorized Specialty Diagnoses / Procedures Referred By Luciana t Referred To Contact Radiology Diagnoses Encounter for monitoring amiodarone therapy SOB (shortness of breath) Procedures CT CHEST WO CONTRAST Price De PA-C [address] [place] [address] Phone: tel: fax: Referral ID Status Reason Start Date Expiration Date V isits Requested Visits Authorized [id number] Authorized 05/29/2024 999 999 Reason for Visit * Reason Onset Date Comments Test Results 05/22/2024 Encounter Details Date Type Department Care Team ([facility] st Contact Info) Description 05/22/2024 Telephone Cardiology, [facility] [address] [place] [address] Price De PA-C [address] [place] [address] Test Results Allergies Active Allergy Reactions Criticality [...] (HCC),COPD, group B, by GOLD 2017 classification ([facility]) Use as directed 2 L/min(Oxygen) at bedtime as needed for Shortness of Breath. 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 Not on file [...] 06/20/2024 10:30 AM EDT Anticoagulation Pharmacy, [address] [place] [address] [place] [address] 07/08/2024 2:30 PM EDT Office Visit Cardiology, [facility] [address] [place] [address] Price De PA-C [address] [place] [address] 07/16/2024 8:50 AM EDT Office Visit Family Medicine [address] [place] [phone] [address]nes [address] [place] [address] 09/09/2024 10:30 AM EDT Nurse Only Ancillary [address] [place] [address] [place], Nurse Annual Wellness [address] [place] [address] [place] [address] 09/24/2024 2:00 PM EDT Office Visit Cardiology [address] [place] [address] Price De, NO[place] [address] [place] [address] 03/19/2025 2:20 PM EST Office Visit Dermatology [address] [place] [address] Stacey Hathaway PA-C [address] [place] [address] [place] [address] Scheduled Orders Name Type Priority Associated Diagnoses [...] shot) (#1) 2023 CKD PHOS USE SMARTSET 34540 12/31/202312/10, 06/10/2019, 04/12/2018 Albumin/Creatinine Ratio 04/26/2024 024, 05/26/2022, 04/26/2021 Adult Wellness Visit 09/05/2024 09/06/2023, 08/31/19 23 Depression Screening 09/05/2024 09/06/2023, 09/06/19 24 GFR 11/18/2024 05/21/2024, 01/09, 01/16/2024, Additional history exists O2 ASSESSMENT COMPLETED IN PAST YEAR FOR COPD 11/27/2024 11/28/2023 CKD HGB USE SMARTSET 09476 05/21/202505/21, 02/06/2024, 02/06/2024, Additional history exists TSH [...] monitoring documented in this encounter Care Teams Dial Refinisher Relationship Specialty Start Date End Date Agnes Saavedra DO [address] [place] [address] [place] [address] PCP - General Internal Medicine 04/26/23 documented as of this encounter
--- OUTSIDE RECORDS SUMMARY | 2024-06-14 13:30 | External Medical Summary | Summary of Care ---
Author Name Unknown Organization [facility] Address [address] [place] [address] Phone [phone] Care Team Providers Care English As A Second Language Instructor Name Role Phone Agnes Saavedra DO Primary Care Provider Reason for Referral * Precert (Within 10 days (routine)) - Authorized Specialty Diagnoses / Procedures Referred By Luciana t Referred To Contact Radiology Diagnoses Encounter for monitoring amiodarone therapy SOB (shortness of breath) Procedures CT CHEST WO CONTRAST Price De PA-C [address] [place] [address] Phone: tel: fax: Referral ID Status Reason Start Date Expiration Date V isits Requested Visits Authorized [id number] Authorized 05/29/2024 999 999 Reason for Visit * Reason Onset Date Comments Test Results 05/22/2024 Encounter Details Date Type Department Care Team ([facility] st Contact Info) Description 05/22/2024 Telephone Cardiology, [facility] [address] [place] [address] Price De PA-C [address] [place] [address] Test Results Allergies Active Allergy Reactions Criticality [...] (HCC),COPD, group B, by GOLD 2017 classification ([facility]) Use as directed 2 L/min(Oxygen) at bedtime as needed for Shortness of Breath. 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 * Telephone Encounter - [...] 06/20/2024 10:30 AM EDT Anticoagulation Pharmacy, [address] [place] [address] [place] [address] 07/08/2024 2:30 PM EDT Office Visit Cardiology, [facility] [address] [place] [address] Price De PA-C [address] [address] 07/16/2024 8:50 AM EDT Office Visit Family Medicine [address] [place] [phone] Agnes Saavedra [address] [place] [address] 09/09/2024 10:30 AM EDT Nurse Only Ancillary [address] [place] [address] [place], Nurse Annual Wellness [address] [place] [address] [place] [address] 09/24/2024 2:00 PM EDT Office Visit Cardiology [address] [place] [address] Price De PA-C [address] [place] [address] 03/19/2025 2:20 PM EST Office Visit Dermatology [address] [place] [address] Stacey Hathaway PA-C [address] [place] [address] [place] [address] Scheduled Orders Name Type Priority Associated Diagnoses [...] shot) (#1) 2023 CKD PHOS USE SMARTSET 25672 12/31/202312/10, 06/10/2019, 04/12/2018 Albumin/Creatinine Ratio 04/26/2024 024, 05/26/2022, 04/26/2021 Adult Wellness Visit 09/05/2024 09/06/2023, 08/31/19 23 Depression Screening 09/05/2024 09/06/2023, 09/06/19 24 GFR 11/18/2024 05/21/2024, 01/09, 01/16/2024, Additional history exists O2 ASSESSMENT COMPLETED IN PAST YEAR FOR COPD 11/27/2024 11/28/2023 CKD HGB USE SMARTSET 32365 05/21/202505/21, 02/06/2024, 02/06/2024, Additional history exists TSH [...] monitoring documented in this encounter Care Teams English As A Second Language Instructor Relationship Specialty Start Date End Date Agnes Saavedra DO [address] [place] [address] [place] [address] PCP - General Internal Medicine 04/26/23 documented as of this encounter
--- OUTSIDE RECORDS SUMMARY | 2024-06-14 13:30 | External Medical Summary ---
Author Name Unknown Address Unknown Organization K01:[facility] [place] [facility] [place] [address] Laboratory Report Ordering Provider Test Date Status ZEYAD PRO 05/21/2024 12:58:37 Final Observation Date Value Abnormality Reference (Units ) Status WBC, Total 05/21/2024 12:58:37 11.35 Above high normal 4.00-10.80 (K/uL) Final RBC 05/21/2024 12:58:37 4.33 3.85-5.15 (M/uL) Final Hemoglobin 05/21/2024 12:58:37 12.6 12.0-15.3 (g/dL) Final HCT 05/21/2024 12:58:37 41.5 36.0-45.2 (%) Final MCV 05/21/2024 12:58:37 95.8 81.5-97.5 (fL) Final MCH 05/21/2024 12:58:37 29.1 27.0-34.0 (pg) Final MCHC 05/21/2024 12:58:37 30.4 32.0-36.0 (g/dL) Final RDW 05/21/2024 12:58:37 14.6 11.5-15.5 (%) Final Platelets 05/21/2024 12:58:37 283 140-400 (K/uL) Final MPV 05/21/2024 12:58:37 12.5 6.6-11.1 (fL) Final Nucleated erythrocytes/100 leukocytes [Ratio] in Blood by Automated count 05/21/2024 12:58:37 0 <=0 (/100 WBCs) Final Performing Location [facility] [place] [address] [place] [address]
--- OUTSIDE RECORDS SUMMARY | 2024-06-14 13:30 | External Medical Summary ---
Author Name Unknown Address Unknown Organization K01:[facility] [place] - [address] [place] [address] Laboratory Report Ordering Provider Test Date Status ZEYAD PRO 05/21/2024 12:58:37 Final Observation Date Value Abnormality Reference (Units ) Status BUN 05/21/2024 12:58:37 17 6-20 (mg/dL) Final Creatinine 05/21/2024 12:58:37 1.3 Above high normal 0.5-1.0 (mg/dL) Final Glomerular filtration rate/1.73 sq M.predicted [Volume Rate/Area] in Serum, Plasma or Blood by Creatinine-based formula (CKD-EPI) 05/21/2024 12:58:37 43 Below low normal >=60 (mL/min) Final eGFR is calculated based on the CKD-EPI 2020 equation. Sodium 05/21/2024 12:58:37 140 135-146 (m mol/L) Final Potassium 05/21/2024 12:58:37 4.8 3.5-5.1 (m mol/L) Final Cl 05/21/2024 12:58:37 101 98-107 (mm ol/L) Final CO2 05/21/2024 12:58:37 27 22-32 (mmo l/L) Final Anion gap 05/21/2024 12:58:37 12 7-15 (mmol /L) Final Glucose 05/21/2024 12:58:37 105 70-120 (mg /dL) Final Albumin 05/21/2024 12:58:37 4.0 3.8-5.0 (g /dL) Final AST (Aspartate aminotransferase) 05/21/2024 12:58:37 52 Above high normal 10-35 (U/L) Final Alk Phos 05/21/2024 12:58:37 197 Above high normal 35 -130 (U/L) Final Bilirubin, Total 05/21/2024 12:58:37 0.5 <=1 .2 (mg/dL) Final Calcium 05/21/2024 12:58:37 9.4 8.4-10.2 ( mg/dL) Final Protein 05/21/2024 12:58:37 6.7 6.0-8.3 (g /dL) Final ALT (Alanine aminotransferase) 05/21/2024 12:58:37 37 Above high normal 10-35 (U/L) Final Performing Location LAB[facility] [place] - [facility] [address] [facility] [address]
--- OUTSIDE RECORDS SUMMARY | 2024-06-14 13:30 | External Medical Summary ---
Author Name Unknown Address Unknown Organization K01:[facility] [place] [address] [place] [address] Laboratory Report Ordering Provider Test Date Status ZEYAD PRO 05/21/2024 12:58:37 Final Observation Date Value Abnormality Reference (Units ) Status TSH 05/21/2024 12:58:37 1.48 0.27-4.20 (uIU/mL) Final Performing Location LABORATORY [facility] - [address] [place] [address]
--- OUTSIDE RECORDS SUMMARY | 2024-06-14 13:31 | External Medical Summary | Summary of Care ---
Author Name Unknown Organization [facility] Address [address] [place] [address] Phone [phone] Care Team Providers Care Jewelry Cutter Name Role Phone Agnes Saavedra Primary Care Provider [phone] Reason for Visit * Reason Onset Date Comments Follow Up 05/02/2024 Encounter Details Date Type Department Care Team (Late st Contact Info) Description 05/02/2024 Telephone Cardiology, [facility] [address] [facility] [place] [address] Main Alme[place] DO [address] [place] [address] Follow Up Allergies Active Allergy Reactions Criticality Noted Date Comments Amoxicillin 04/13/2022 Severe itching Sulfamethoxazole-Trimethopri m 06/26/2018 Affected Kidneys Cephalexin 07/22/2020 Redness and flushing, diarrhea documented as of this encounter (statuses as of 05/10/2024) Medications CYANOCOBALAMIN (VITAMIN B-12) 100 MCG Tablet [...] as needed and directed, Reported on 03/11/2024 Furosemide 20 MG Oral Tablet (Lasix)Indicatio ns:Bilateral lower extremity edema Take 2 Tablets by mouth once a day on Monday, , Monday, and Monday only AND 3 Tablets once a day on Monday, Monday, and Monday only. 024 Active Warfarin Sodium 2 MG Oral Tablet (Coumadin)Indica tions:Paroxysmal atrial fibrillation (HCC),Atrial fibrillation, unspecified type (HCC),Anticoagul ation 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,FCI current use of anticoagulant therapy,Atrial fibrillation (HCC) [...] ons:COPD, group B, by GOLD 2017 classification ([facility]) INHALE 2 PUFFS EVERY 4 [...] ions:COPD, group B, by GOLD 2017 classification ([facility]) INHALE ONE PUFF BY MOUTH [...] times a day. With meals 10 Capsule Active Sertraline HCl 50 MG Oral Tablet [...] Hour (toPROL XL)Indications:P AF (paroxysmal atrial fibrillation) ([facility]) TAKE ONE TABLET BY MOUTH [...] DAY 90 Tablet 3 024 2024 Discontinued documented as of this encounter (statuses as of 05/10/2024) Active Problems Problem Noted Date Diagnosed Date [...] rinse after steroid. 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 Mid May Inocencia Jeffers PA-C Department [...] I do not have any openings at [facility] either. Is the appt in September okfor [...] lateral chest x-ray and laboratory work, in [place]. Hold ramipril, RE: Cough, dizziness Increase metoprolol succinate to 37.5 mg/day Please schedule a sooner appointment in [place] Future considerations include but are not limited [...] with Inocencia Jeffers PA-C offered 06/10/24 at [facility], pt is unable to get to [facility] due to car/transportation. Would like visit in [facility]. * Telephone Encounter - Main Almeida [...] Description 06/20/2024 10:30 AM EDT Anticoagulation Pharmacy, [address] [place] [address] [place] [address] 07/16/2024 8:50 AM EDT Office Visit Family Medicine [address] [place] [phone] Agnes Saavedra, [address] [place] [address] 09/09/2024 10:30 AM EDT Nurse Only Ancillary [address] [place] [address] [place], Nurse Annual Wellness [address] [place] [address] [place] [address] 09/24/2024 2:00 PM EDT Office Visit Cardiology [address] [place] [address] Inocencia Jeffers PA-C [address] [place] [address] 03/19/2025 2:20 PM EST Office Visit Dermatology [address] [place] [address] Stacey Hathaway PA-C [address] [place] [address] [place] [address] Scheduled Orders Name Type Priority Associated Diagnoses [...] Vaccines (1 of 2) 1997 COVID-19 Vaccine ( season) 2023 Influenza Vaccine (FLU shot) (#1) 2023 CKD PHOS USE SMARTSET 03685 12/31/202312/10, 06/10/2019, 04/12/2018 Albumin/Creatinine Ratio 04/26/2024 024, 05/26/2022, 04/26/2021 GFR 08/06/2024 02/06/2024, 11/2023, 11/28/2023, Additional history exists Adult Wellness Visit 09/05/2024 09/06/2023, 08/31/19 23 Depression Screening 09/05/2024 09/06/2023, 09/06/19 24 O2 ASSESSMENT COMPLETED IN PAST YEAR FOR COPD 11/27/2024 11/28/2023 TSH 01/15/2025 01/16/2024, 05/12, 04/26/2023, Additional history exists CKD HGB USE SMARTSET 41407 02/05/202502/05, 02/06/2024, 01/16/2024, Additional history exists DTap/Tdap [...] DOSE SCAN LUNG CANCER SCREEN INITIAL, ACC: [id number], dated 2024-02-12 10:49:01; XR CHEST 2 VIEWS, ACC: [id number], dated 2023-01-04 10:47:03; CT CHEST WO CONTRAST, ACC: [id number], dated 2022-04-15 10:57:56 TECHNIQUE Radiography of the [...] DOSE SCAN LUNG CANCER SCREEN INITIAL, ACC: [id number], [id number] 10:49:01; XR CHEST 2 VIEWS, ACC: [id number], dated 2023-01-04 10:47:03; CT CHEST WO CONTRAST, ACC: [id number], dated 2022-04-15 10:57:56 TECHNIQUE Radiography of the chest. XR CHEST 2 VIEWS FINDINGS No acute focal consolidation. Lower lung ground-glass and septalthickening likely reflecting mild/moderate pulmonary edema. Nopneumothorax observed. Stable cardiomediastinal silhouette with leftatrial enlargement. Left chest wall pacemaker as before..No acute osseousabnormality. Small bilateral pleural effusions. IMPRESSION IMPRESSION 1. Mild/Moderate pulmonary edema. 2. Additional findings as above. us Inocencia Jeffers PA-C RADIOLOGY (RAD GENERAL) Fin al Result documented in this encounter Visit Diagnoses Diagnosis Shortness of breath- Primary Encounter for monitoring amiodarone therapy Encounter for therapeutic drug monitoring documented in this encounter Care Teams Jewelry Cutter Relationship Specialty Start Date End Date Agnes Saavedra DO [address] [place] [address] [place] [phone] PCP - General Internal Medicine 04/26/23 documented as of this encounter
--- OUTSIDE RECORDS SUMMARY | 2024-06-14 13:31 | External Medical Summary | Summary of Care ---
Author Name Unknown Organization [facility] Address [address] [place] [address] Phone [phone] Care Team Providers Care Application Counselor Name Role Phone Agnes Saavedra Primary Care Provider [phone] Reason for Visit * Reason Onset Date Comments Follow Up 05/02/2024 Encounter Details Date Type Department Care Team (Late st Contact Info) Description 05/02/2024 Telephone Cardiology, [facility] [address] [facility] [place] [address] Main Almeida DO [address] [facility] [place] [address] Follow Up Allergies Active Allergy Reactions Criticality Noted Date Comments Amoxicillin 04/13/2022 Severe itching Sulfamethoxazole-Trimethopri m 06/26/2018 Affected Kidneys Cephalexin 07/22/2020 Redness and flushing, diarrhea documented as of this encounter (statuses as of 05/11/2024) Medications CYANOCOBALAMIN (VITAMIN B-12) 100 MCG Tablet [...] (HCC),Atrial fibrillation, unspecified type (HCC),Anticoagul ation 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,shelter current use of anticoagulant therapy,Atrial fibrillation (HCC) [...] ons:COPD, group B, by GOLD 2017 classification ([facility]) INHALE 2 PUFFS EVERY 4 [...] ions:COPD, group B, by GOLD 2017 classification ([facility]) INHALE ONE PUFF BY MOUTH [...] Hour (toPROL XL)Indications:P AF (paroxysmal atrial fibrillation) ([facility]) TAKE ONE TABLET BY MOUTH [...] as of this encounter (statuses as of 05/11/2024) Active Problems Problem Noted Date Diagnosed Date [...] rinse after steroid. 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 Mid May Inocencia Jeffers PA-C Department [...] I do not have any openings at [facility] either. Is the appt in September [...] lateral chest x-ray and laboratory work, in [place]. Hold ramipril, RE: Cough, dizziness Increase metoprolol succinate to 37.5 mg/day Please schedule a sooner appointment in [place] Future considerations include but are not limited [...] with Inocencia Jeffers PA-C offered 06/10/24 at [facility], pt is unable to get to [facility] due to car/transportation. Would like visit in [facility]. * Telephone Encounter - Main [...] Description 06/20/2024 10:30 AM EDT Anticoagulation Pharmacy, [address] [place] [address] [place] [address] 07/16/2024 8:50 AM EDT Office Visit Family Medicine [address] [place] [phone] Agnes Saavedra, [address] [place] [address] 09/09/2024 10:30 AM EDT Nurse Only Ancillary [address] [place] [address] [place], Nurse Annual Wellness [address] [place] [address] [place] [address] 09/24/2024 2:00 PM EDT Office Visit Cardiology [address] [place] [address] Inocencia Jeffers PA-C [address] [place] [address] 03/19/2025 2:20 PM EST Office Visit Dermatology [address] [place] [address] Stacey Hathaway PA-C [address] [place] [address] [place] [address] Scheduled Orders Name Type Priority Associated Diagnoses [...] shot) (#1) 2023 CKD PHOS USE SMARTSET 75458 12/31/202312/10, 06/10/2019, 04/12/2018 Albumin/Creatinine Ratio 04/26/2024 024, 05/26/2022, 04/26/2021 GFR 08/06/2024 02/06/2024, 11/2023, 11/28/2023, Additional history exists Adult Wellness Visit 09/05/2024 09/06/2023, 08/31/19 23 Depression Screening 09/05/2024 09/06/2023, 09/06/19 24 O2 ASSESSMENT COMPLETED IN PAST YEAR FOR COPD 11/27/2024 11/28/2023 TSH 01/15/2025 01/16/2024, 05/12, 04/26/2023, Additional history exists CKD HGB USE SMARTSET 53270 02/05/202502/05, 02/06/2024, 01/16/2024, Additional history exists DTap/Tdap [...] DOSE SCAN LUNG CANCER SCREEN INITIAL, ACC: [id number], dated 2024-02-12 10:49:01; XR CHEST 2 VIEWS, ACC: [id number], dated 2023-01-04 10:47:03; CT CHEST WO CONTRAST, ACC: [id number], dated 2022-04-15 10:57:56 TECHNIQUE Radiography of the [...] DOSE SCAN LUNG CANCER SCREEN INITIAL, ACC: [id number], [id number] 10:49:01; XR CHEST 2 VIEWS, ACC: [id number], dated 2023-01-04 10:47:03; CT CHEST WO CONTRAST, ACC: [id number], dated 2022-04-15 10:57:56 TECHNIQUE Radiography of the [...] monitoring documented in this encounter Care Teams Application Counselor Relationship Specialty Start Date End Date Agnes Saavedra DO [address] [place] [address] [place] [phone] PCP - General Internal Medicine 04/26/23 documented as of this encounter
--- OUTSIDE RECORDS SUMMARY | 2024-06-14 13:31 | External Medical Summary | Summary of Care ---
Author Name Unknown Organization [facility] Address [address] [place] [address] Phone [phone] Care Team Providers Care Chemist Organic Name Role Phone Agnes Saavedra Primary Care Provider [phone] Reason for Visit * Reason Onset Date Comments Follow Up 05/02/2024 Encounter Details Date Type Department Care Team (Late st Contact Info) Description 05/02/2024 Telephone Cardiology, [facility] [address] [facility] [place] [address] Main Almeida DO [address] [place] [address] Follow Up Allergies Active Allergy Reactions Criticality [...] (HCC),Atrial fibrillation, unspecified type (HCC),Anticoagul ation 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,FDC current use of anticoagulant therapy,Atrial [...] ons:COPD, group B, by GOLD 2017 classification ([facility]) INHALE 2 PUFFS EVERY 4 HOURS NEEDED [...] ions:COPD, group B, by GOLD 2017 classification ([facility]) INHALE ONE PUFF BY MOUTH IN THE [...] Hour (toPROL XL)Indications:P AF (paroxysmal atrial fibrillation) ([facility]) TAKE ONE TABLET BY MOUTH EVERY DAY [...] rinse after steroid. 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 Mid May Inocencia Jeffers PA-C Department [...] I do not have any openings at [facility] either. Is the appt in September okfor [...] lateral chest x-ray and laboratory work, in [place]. Hold ramipril, RE: Cough, dizziness Increase metoprolol succinate to 37.5 mg/day Please schedule a sooner appointment in [place] Future considerations include but are not limited [...] with Inocencia Jeffers PA-C offered 06/10/24 at [facility], pt is unable to get to [facility] due to car/transportation. Would like visit in [facility]. * Telephone Encounter - Main Almeida [...] Description 06/20/2024 10:30 AM EDT Anticoagulation Pharmacy, [address] [place] [address] [place] [address] 07/16/2024 8:50 AM EDT Office Visit Family Medicine [address] [place] [phone] Agnes Saavedra, [address] [place] [address] 09/09/2024 10:30 AM EDT Nurse Only Ancillary [address] [place] [address] [place], Nurse Annual Wellness [address] [place] [address] [place] [address] 09/24/2024 2:00 PM EDT Office Visit Cardiology [address] [place] [address] Inocencia Jeffers PA-C [address] [place] [address] 03/19/2025 2:20 PM EST Office Visit Dermatology [address] [place] [address] Stacey Hathaway PA-C [address] [place] [address] [place] [address] Scheduled Orders Name Type Priority Associated Diagnoses [...] shot) (#1) 2023 CKD PHOS USE SMARTSET 01597 12/31/202312/10, 06/10/2019, 04/12/2018 Albumin/Creatinine Ratio 04/26/2024 024, 05/26/2022, 04/26/2021 GFR 08/06/2024 02/06/2024, 11/2023, 11/28/2023, Additional history exists Adult Wellness Visit 09/05/2024 09/06/2023, 08/31/19 23 Depression Screening 09/05/2024 09/06/2023, 09/06/19 24 O2 ASSESSMENT COMPLETED IN PAST YEAR FOR COPD 11/27/2024 11/28/2023 TSH 01/15/2025 01/16/2024, 05/12, 04/26/2023, Additional history exists CKD HGB USE SMARTSET 73568 02/05/202502/05, 02/06/2024, 01/16/2024, Additional history exists DTap/Tdap [...] DOSE SCAN LUNG CANCER SCREEN INITIAL, ACC: [id number], dated 2024-02-12 10:49:01; XR CHEST 2 VIEWS, ACC: [id number], dated 2023-01-04 10:47:03; CT CHEST WO CONTRAST, ACC: [id number], dated 2022-04-15 10:57:56 TECHNIQUE Radiography of the [...] DOSE SCAN LUNG CANCER SCREEN INITIAL, ACC: [id number], [id number] 10:49:01; XR CHEST 2 VIEWS, ACC: [id number], dated 2023-01-04 10:47:03; CT CHEST WO CONTRAST, ACC: [id number], dated 2022-04-15 10:57:56 TECHNIQUE Radiography of the [...] monitoring documented in this encounter Care Teams Chemist Organic Relationship Specialty Start Date End Date Anges Saavedra DO [address] [place] [address] [place] [phone] PCP - General Internal Medicine 04/26/23 documented as of this encounter
--- OUTSIDE RECORDS SUMMARY | 2024-06-14 13:31 | External Medical Summary | Summary of Care ---
Author Name Unknown Organization [facility] Address [address] [place] [address] Phone [phone] Care Team Providers Care Joint Supervisor Name Role Phone Agnes Saavedra DO Primary Care Provider [phone] Reason for Visit * Reason Onset Date Comments Test Results 05/10/2024 Encounter Details Date Type Department Care Team (Late st Contact Info) Description 05/10/2024 Telephone Cardiology, [facility] [address] [facility] [place] [address] Price De PA-C [address] [facility] [place] [address] Test Results Allergies Active Allergy Reactions Criticality [...] every other day. Active oxygen IN GASIndications:Ch remingtonic diastolic congestive heart failure (HCC),COPD, group B, [...] on 03/11/2024 Furosemide 20 MG Oral Tablet (Lasix)Indication s:Bilateral lower extremity edema Take 2 Tablets by mouth once a day on Monday, , Monday, and Monday only AND 3 Tablets once a day on Monday, Monday, and Monday only. 06/16/19 24 Active Warfarin Sodium 2 MG Oral Tablet (Coumadin)Indicat ions:Paroxysmal atrial fibrillation (HCC),Atrial fibrillation, unspecified type (HCC),Anticoagula tion 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,alf current use of anticoagulant therapy,Atrial fibrillation (HCC) [...] by GOLD 2017 classification ([facility]) INHALE 2 PUFFS EVERY 4 HOURS [...] by GOLD 2017 classification ([facility]) INHALE ONE PUFF BY MOUTH IN [...] Hour (toPROL XL)Indications:PA F (paroxysmal atrial fibrillation) ([facility]) TAKE ONE TABLET BY MOUTH EVERY [...] EVERY DAY 90 Tablet 05/10/19 25 Active documented as of this encounter [...] rinse after steroid. 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 ----- Message from Price De sent at 05/10/2024 4:32 PM EST ----- Increase furosemide to 80 mg/day x 3 [...] Description 06/20/2024 10:30 AM EDT Anticoagulation Pharmacy, [address] [place] [address] [place] [address] 07/16/2024 8:50 AM EDT Office Visit Family Medicine [address] [phone] [address] [place] [address] 09/09/2024 10:30 AM EDT Nurse Only Ancillary [address] [place] [address] [place], Nurse Annual [address] [place] [address] 09/24/2024 2:00 PM EDT Office Visit Cardiology [address] [place] [address] Price De PA-C [address] [place] [address] 03/19/2025 2:20 PM EST Office Visit Dermatology [address] [place] [address] Stacey Hathaway PA-C [address] [place] [address] [place] [address] Scheduled Orders Name Type Priority Associated Diagnoses Orde r Schedule BASIC METABOLIC PANEL Lab Routine Encounter for monitoring diuretic therapy Expected: 05/17/2024 (Approximate), Expires: 05/10/2025 Scheduled Procedures Name Priority Associated Diagnoses Date/Ti [...] shot) (#1) 2023 CKD PHOS USE SMARTSET 29809 12/31/202312/10, 06/10/2019, 04/12/2018 Albumin/Creatinine Ratio 04/26/2024 024, 05/26/2022, 04/26/2021 GFR 08/06/2024 02/06/2024, 10/11/2023, 11/28/2023, Additional history exists Adult Wellness Visit 09/05/2024 09/06/2023, 08/31/19 23 Depression Screening 09/05/2024 09/06/2023, 09/06/19 24 O2 ASSESSMENT COMPLETED IN PAST YEAR FOR COPD 11/27/2024 11/28/2023 TSH 01/15/2025 01/16/2024, 05/12, 04/26/2023, Additional history exists CKD HGB USE SMARTSET 58255 02/05/202502/05, 02/06/2024, 01/16/2024, Additional history exists DTap/Tdap [...] as of this encounter Visit Diagnoses Diagnosis Encounter for monitoring diuretic therapy- Primary Encounter for therapeutic drug monitoring documented in this encounter Care Teams Joint Supervisor Relationship Specialty Start Date End Date Agnes Saavedra DO [address] [place] [address] [place] [address] PCP - General Internal Medicine 04/26/23 documented as of this encounter
--- OUTSIDE RECORDS SUMMARY | 2024-06-14 13:31 | External Medical Summary ---
Author Name Unknown Address Unknown Organization : Laboratory Report Ordering Provider Test Date Status KAYLEE CHIU 05/08/2024 10:33:34 Final Therapeutic ranges for non-o perative patients:
Prophylaxsis/treatment of DVT: (Range:2.0-3.0)
Treatment of pulmonary embolism:(Range:2.0-3.0)
Prevention of systemic embolism from:
-tissue heart valves
-acute myocardial infarction
-valvular heart disease
-atrial fibrillation
(Range: 2.0-3.0)
Mechanical prosthetic valves: (Range: 2.5-3.5) Observation Date Value Abnormality Reference (Units ) Status INR in Capillary blood by Coagulation assay 05/08/2024 10:33:34 2.6 (INR) Final Performing Location
--- OUTSIDE RECORDS SUMMARY | 2024-06-14 13:31 | External Medical Summary | Summary of Care ---
Author Name Unknown Organization [facility] Address [address] [place] [address] Phone [phone] Care Team Providers Care Fine Grade Operator Name Role Phone Agnes Saavedra Primary Care Provider [phone] Encounter Details Date Type Department Care Team ([facility] st Contact Info) Description 05/02/2024 Population Health External Data Unspecified Department Allergies Active Allergy Reactions Criticality Noted Date Comments Amoxicillin 04/13/2022 Severe itching Sulfamethoxazole-Trimethopri m 06/26/2018 Affected Kidneys Cephalexin 07/22/2020 Redness and flushing, diarrhea documented as of this encounter (statuses as of 05/02/2024) Medications CYANOCOBALAMIN (VITAMIN B-12) 100 MCG Tablet [...] as needed and directed, Reported on 03/11/2024 Amiodarone HCl 200 MG Oral Tablet (Cordarone)Indica tions:Paroxysmal atrial fibrillation (HCC) TAKE ONE TABLET BY MOUTH EVERY DAY 90 Tablet 3 05/08/19 24 Active Furosemide 20 MG Oral Tablet (Lasix)Indication s:Bilateral lower extremity edema Take 2 Tablets by mouth once a day on Monday, , Monday, and Monday only AND 3 Tablets once a day on Monday, Monday, and Monday only. 06/16/19 24 Active Warfarin Sodium 2 MG Oral Tablet (Coumadin)Indicat ions:Paroxysmal atrial fibrillation (HCC),Atrial fibrillation, unspecified type (HCC),Anticoagula tion 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,live in companion current use of anticoagulant therapy,Atrial fibrillation (HCC) [...] group B, by GOLD 2017 classification ([facility]) INHALE 2 PUFFS EVERY 4 HOURS [...] group B, by GOLD 2017 classification ([facility]) INHALE ONE PUFF BY MOUTH IN [...] Hour (toPROL XL)Indications:PA F (paroxysmal atrial fibrillation) ([facility]) TAKE ONE TABLET BY MOUTH EVERY DAY 90 Tablet 3 04/06/20 24 Active Omeprazole 40 MG Oral Capsule Delayed Release (PriLOSEC)Indicat ions:Gastroesopha geal reflux disease without esophagitis TAKE ONE CAPSULE BY MOUTH TWICE DAILY 180 Capsule 1 04/05/20 24 Active Vitamin D3 50 MCG (1999 UT) Oral Capsule Take 1 Capsule by mouth in the morning. 04/15/19 25 Active documented as of this encounter (statuses as of 05/02/2024) Active Problems Problem Noted Date Diagnosed Date [...] rinse after steroid. Test performed by Trudy CUSTOMER SOLUTIONS COORDINATOR CPFT Diastolic dysfunction 08/01/2017 DIVERTICULOSIS OF COLON Family history of colon cancer Gastroesophageal reflux disease without esophagi tis GENERAL OSTEOARTHROSIS Sciatica Carpal tunnel syndrome documented as of this encounter (statuses as of 05/02/2024) Resolved Problems Problem Noted Date Diagnosed Date Resolved Date Atrial fibrillation, unspecified type 01/18/2022 04/26/2023 CKD (chronic kidney disease), stage II 04/08/2021 03/24/2022 Overview (04/26/2021): EGFR 69 Kidney disease, chronic, sta ge III (GFR 30-59 ml/min) 01/04/2018 11/23/2020 Prediabetes 07/18/2017 12/24/2020 Overview: Per Prediabetes protocol #1 Atrial fibrillation 07/13/2017 01/17/20 24 BENIGN NEOPLASM SKIN NOS 11/27/2002 BENIGN NEOPLASM LG BOWEL documented as of this encounter (statuses as of 05/02/2024) Immunizations Name Administration Dates Next Due TDAP [...] 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 Not on file Not on file documented as of this encounter Plan of Treatment Upcoming Encounters Date Type Department Care Team (Late st Contact Info) Description 05/08/2024 10:30 AM EST Anticoagulation Pharmacy, [address] [place] [address] [place] [address] 07/16/2024 8:50 AM EDT Office Visit Family Medicine [address] [place] [phone] Agnes Saavedra[address] [place] [address] 09/09/2024 10:30 AM EDT Nurse Only Ancillary [address] [place] [address] [place], Nurse Annual [address] [place] [address] 09/24/2024 2:00 PM EDT Office Visit Cardiology [address] [place] [address] Price De PA-C [address] [place] [address] 03/19/2025 2:20 PM EST Office Visit Dermatology [place] [address] [place] [address] Stacey Hathaway PA-C [address] [place] [address] [place] [address] Scheduled Procedures Name Priority Associated Diagnoses Date/Ti [...] shot) (#1) 2023 CKD PHOS USE SMARTSET 03140 12/31/202312/10, 06/10/2019, 04/12/2018 Albumin/Creatinine Ratio 04/26/2024 024, 05/26/2022, 04/26/2021 GFR 08/06/2024 02/06/2024, 11/2023, 11/28/2023, Additional history exists Adult Wellness Visit 09/05/2024 09/06/2023, 08/31/19 23 Depression Screening 09/05/2024 09/06/2023, 09/06/19 24 O2 ASSESSMENT COMPLETED IN PAST YEAR FOR COPD 11/27/2024 11/28/2023 TSH 01/15/2025 01/16/2024, 05/12, 04/26/2023, Additional history exists CKD HGB USE SMARTSET 07606 02/05/202502/05, 02/06/2024, 01/16/2024, Additional history exists DTap/Tdap [...] Not on filedocumented as of this encounter Care Teams Fine Grade Operator Relationship Specialty Start Date End Date Agnes Saavedra DO [address] [place] [address] [place] [address] PCP - General Internal Medicine 04/26/23 documented as of this encounter
--- OUTSIDE RECORDS SUMMARY | 2024-06-14 13:31 | External Medical Summary | Summary of Care ---
Author Name Unknown Organization [facility] Address [address] [place] [address] Phone [phone] Care Team Providers Care Radiology Assistant Name Role Phone Saavedra Agnes Gonsalez Primary Care Provider [phone] Encounter Details Date Type Department Care Team (Late st Contact Info) Description 05/02/2024 Result Scan Unspecified Department Main [place], DO [address] [place] [phone] <No scans attached> Allergies Active Allergy Reactions Criticality Noted Date [...] (HCC),Atrial fibrillation, unspecified type (HCC),Anticoagula tion 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,assisted current use of anticoagulant therapy,Atrial fibrillation (HCC) [...] ns:COPD, group B, by GOLD 2017 classification ([facility]) INHALE 2 PUFFS EVERY 4 [...] ns:COPD, group B, by GOLD 2017 classification ([facility]) INHALE ONE PUFF BY MOUTH [...] Hour (toPROL XL)Indications:PA F (paroxysmal atrial fibrillation) ([facility]) TAKE ONE TABLET BY MOUTH EVERY [...] rinse after steroid. 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 Not on file Not on file documented as of this encounter Plan of Treatment Upcoming Encounters Date Type Department Care Team (Late st Contact Info) Description 05/08/2024 10:30 AM EST Anticoagulation Pharmacy, [address] [place] [address] [place] [address] 07/16/2024 8:50 AM EDT Office Visit Family Medicine [address] [place] [phone] Agnes Saavedra, [address] [place] [address] 09/09/2024 10:30 AM EDT Nurse Only Ancillary [address] [place] [address] Kristen, Nurse [address] [place] [address] 09/24/2024 2:00 PM EDT Office Visit Cardiology [address] [place] [address] Price De PA-C [address] [place] [address] 03/19/2025 2:20 PM EST Office Visit Dermatology [address] [place] [address] Stacey Hathaway PA-C [address] [place] [address] [place] [address] Scheduled Procedures Name Priority Associated Diagnoses Date/Ti me COLONOSCOPY FLEXIBLE PROXIMA L DIAGNOSTIC Recall Encounter for screening colonoscopy Health Maintenance Due Date Last Done Comments DXA Scan 1945 Alpha-1 Antitrypsin 1965 Pneumococcal Vaccine: 50+ Years (1 of 2 - PCV) 1966 Zoster Vaccines (1 of 2) 1997 COVID-19 Vaccine ( - season) 2023 Influenza Vaccine (FLU shot) (#1) 2023 CKD PHOS USE SMARTSET 22962 12/31/202312/10, 06/10/2019, 04/12/2018 Albumin/Creatinine Ratio 04/26/2024 024, 05/26/2022, 04/26/2021 GFR 08/06/2024 02/06/2024, 11/2023, 11/28/2023, Additional history exists Adult Wellness Visit 09/05/2024 09/06/2023, 08/31/19 23 Depression Screening 09/05/2024 09/06/2023, 09/06/19 24 O2 ASSESSMENT COMPLETED IN PAST YEAR FOR COPD 11/27/2024 11/28/2023 TSH 01/15/2025 01/16/2024, 05/12, 04/26/2023, Additional history exists CKD HGB USE SMARTSET 23318 02/05/202502/05, 02/06/2024, 01/16/2024, Additional history exists DTap/Tdap [...] Procedure Name Priority Date/Time Associated Diagnosis Comments CARDIOLOGY SCANNED RESULT 05/02/2024 documented in this encounter Results * CARDIOLOGY SCANNED RESULT (05/02/2024) 05/02/2024 us Main Almeida DO OTHER Final Result documented in this encounter Care Teams Radiology Assistant Relationship Specialty Start Date End Date Agnes Saavedra DO [address] [place] [address] [place] [phone] PCP - General Internal Medicine 04/26/23 documented as of this encounter
--- OUTSIDE RECORDS SUMMARY | 2024-06-14 13:31 | External Medical Summary | Summary of Care ---
Author Name Unknown Organization [facility] Address [address] [place] [address] Phone [phone] Care Team Providers Care Etl Lead Name Role Phone Agnes Saavedra Primary Care Provider [phone] Reason for Visit * Reason Onset Date Comments Follow Up 05/02/2024 Encounter Details Date Type Department Care Team (Late st Contact Info) Description 05/02/2024 Telephone Cardiology, [facility] [address] [facility] [place] [address] Main Almeida DO [address] [place] [address] Follow Up Allergies Active Allergy Reactions Criticality [...] (HCC),Atrial fibrillation, unspecified type (HCC),Anticoagul ation 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,snf current use of anticoagulant therapy,Atrial fibrillation (HCC) [...] B, by GOLD 2017 classification ([facility]) INHALE 2 PUFFS EVERY 4 HOURS NEEDED [...] B, by GOLD 2017 classification ([facility]) INHALE ONE PUFF BY MOUTH IN THE [...] XL)Indications:P AF (paroxysmal atrial fibrillation) ([facility]) TAKE ONE TABLET BY MOUTH EVERY DAY [...] rinse after steroid. 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 Mid May Inocencia Jeffers PA-C Department [...] I do not have any openings at [facility] either. Is the appt in [...] lateral chest x-ray and laboratory work, in [place]. Hold ramipril, RE: Cough, dizziness Increase metoprolol succinate to 37.5 mg/day Please schedule a sooner appointment in [place] Future considerations include but are not limited [...] with Inocencia Jeffers PA-C offered 06/10/24 at [facility], pt is unable to get to [facility] due to car/transportation. Would like visit in [facility]. * Telephone Encounter - Main Almeida [...] Description 06/20/2024 10:30 AM EDT Anticoagulation Pharmacy, [address] [place] [address] [place] [address] 07/16/2024 8:50 AM EDT Office Visit Family Medicine [address] [place] [phone] Agnes Saavedra, [address] [place] [address] 09/09/2024 10:30 AM EDT Nurse Only Ancillary [address] [place] [address] [place], Nurse Annual Wellness [address] [place] [address] [place] [address] 09/24/2024 2:00 PM EDT Office Visit Cardiology [address] [place] [address] Inocencia Jeffers PA-C [address] [place] [address] 03/19/2025 2:20 PM EST Office Visit Dermatology [address] [place] [address] Stacey Hathaway PA-C [address] [place] [address] [place] [address] Scheduled Orders Name Type Priority Associated Diagnoses [...] shot) (#1) 2023 CKD PHOS USE SMARTSET 38257 12/31/202312/10, 06/10/2019, 04/12/2018 Albumin/Creatinine Ratio 04/26/2024 024, 05/26/2022, 04/26/2021 GFR 08/06/2024 02/06/2024, 11/2023, 11/28/2023, Additional history exists Adult Wellness Visit 09/05/2024 09/06/2023, 08/31/19 23 Depression Screening 09/05/2024 09/06/2023, 09/06/19 24 O2 ASSESSMENT COMPLETED IN PAST YEAR FOR COPD 11/27/2024 11/28/2023 TSH 01/15/2025 01/16/2024, 05/12, 04/26/2023, Additional history exists CKD HGB USE SMARTSET 33980 02/05/202502/05, 02/06/2024, 01/16/2024, Additional history exists DTap/Tdap [...] DOSE SCAN LUNG CANCER SCREEN INITIAL, ACC: [id number], dated 2024-02-12 10:49:01; XR CHEST 2 VIEWS, ACC: [id number], dated 2023-01-04 10:47:03; CT CHEST WO CONTRAST, ACC: [id number], dated 2022-04-15 10:57:56 TECHNIQUE Radiography of the [...] DOSE SCAN LUNG CANCER SCREEN INITIAL, ACC: [id number], [id number] 10:49:01; XR CHEST 2 VIEWS, ACC: [id number], dated 2023-01-04 10:47:03; CT CHEST WO CONTRAST, ACC: [id number], dated 2022-04-15 10:57:56 TECHNIQUE Radiography of the [...] monitoring documented in this encounter Care Teams Etl Lead Relationship Specialty Start Date End Date Agnes Saavedra DO [address] [place] [address] [place] [phone] PCP - General Internal Medicine 04/26/23 documented as of this encounter
--- OUTSIDE RECORDS SUMMARY | 2024-06-14 13:31 | External Medical Summary | Summary of Care ---
Author Name Unknown Organization [facility] Address [address] [place] [address] Phone [phone] Care Team Providers Care Miner Helper Name Role Phone Agnes Saavedra Primary Care Provider Reason for Visit * Reason Comments eRx-Medication Refill Encounter Details Date Type Department Care Team (Late st Contact Info) Description 05/10/2024 Refill Cardiology, [facility] [address] [place] [address] Inocencia Jeffers PA-C [address] [place] [address] Paroxysmal atrial fibrillation (HCC) Allergies Active Allergy Reactions Criticality Noted Date [...] (HCC),Atrial fibrillation, unspecified type (HCC),Anticoagul ation 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,senior living current use of anticoagulant therapy,Atrial fibrillation (HCC) [...] (toPROL XL)Indications:P AF (paroxysmal atrial fibrillation) ([facility]) TAKE ONE TABLET BY MOUTH EVERY DAY 90 Tablet 3 024 Active Omeprazole 40 MG Oral Capsule Delayed Release (PriLOSEC)Indica tions:Gastroesop hageal reflux disease without esophagitis TAKE ONE CAPSULE BY MOUTH TWICE DAILY 180 Capsule 1 024 Active Vitamin D3 50 MCG (1999) Oral Capsule Take 1 Capsule by mouth in the morning. 025 Active Amiodarone HCl 200 MG Oral Tablet (Cordarone)Indic ations:Paroxysma l atrial fibrillation (HCC) TAKE ONE TABLET BY MOUTH EVERY DAY 90 Tablet 025 Active Amiodarone HCl 200 MG Oral [...] rinse after steroid. 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 Not on file Not on file documented as of this encounter Miscellaneous Notes * Telephone Encounter - Inocencia Jeffers PA-C - 05/10/2024 4:36 PM ESTSigned Prescriptions: Disp Refills Amiodarone HCl 200 MG Oral Tablet (Cordaro*90 Tab*0 Sig: TAKE ONE TABLET BY MOUTH EVERY DAY Authorizing Provider: INOCENCIA JEFFERS * Telephone Encounter - Kaitlin Mills [facility] - 05/10/2024 1:48 PM ESTPending Prescriptions: Disp Refills Amiodarone HCl 200 MG Oral Tablet (Cordaro*90 Tab*0 Sig: TAKE ONE TABLET BY MOUTH EVERY DAY * Telephone Encounter - Kaitlin Mills [facility] - 05/10/2024 1:47 PM EST Did you pend patient's preferred pharmacy and medication before forwarding?yes Pharmacy: [id number] [address] [facility] Pending Prescriptions: Disp Refills Amiodarone HCl 200 MG Oral Tablet (Cordar*90 Tab*0 Sig: TAKE ONE TABLET BY MOUTH EVERY DAY Last Visit: 11/16/2022 (in office), Visit date not found (telemedicine) Next Visit: 06/20/24 If no future appointments scheduled, and last appointment is greater than a year ago, please schedule patient for a follow-up appointment Last date the medication was ordered: 05/08/23 Is this request for a controlled substance?No [...] Description 06/20/2024 10:30 AM EDT Anticoagulation Pharmacy, [address] [place] [address] [place] [address] 07/16/2024 8:50 AM EDT Office Visit Family Medicine [address] [place] [phone] Agnes Saavedra[address] [place] [address] 09/09/2024 10:30 AM EDT Nurse Only Ancillary [address] [place] [address] [place], Nurse [address] [place] [address] 09/24/2024 2:00 PM EDT Office Visit Cardiology [address] [place] [address] Inocencia Jeffers PA-C [address] [place] [address] 03/19/2025 2:20 PM EST Office Visit Dermatology [address] [place] [address] Stacey Hathaway PA-C [address] [place] [address] [place] [address] Scheduled Procedures Name Priority Associated Diagnoses Date/Ti me COLONOSCOPY FLEXIBLE PROXIMA L DIAGNOSTIC Recall Encounter for screening colonoscopy Health Maintenance Due Date Last Done Comments DXA Scan 1945 Alpha-1 Antitrypsin 1965 Pneumococcal Vaccine: 50+ Years (1 of 2 - PCV) 1966 Zoster Vaccines (1 of 2) 1997 COVID-19 Vaccine (1 - season) 2023 Influenza Vaccine (FLU shot) (#1) 2023 CKD PHOS USE SMARTSET 34334 12/31/202312/10, 06/10/2019, 04/12/2018 Albumin/Creatinine Ratio 04/26/2024 024, 05/26/2022, 04/26/2021 GFR 08/06/2024 02/06/2024, 11/2023, 11/28/2023, Additional history exists Adult Wellness Visit 09/05/2024 09/06/2023, 08/31/19 23 Depression Screening 09/05/2024 09/06/2023, 09/06/19 24 O2 ASSESSMENT COMPLETED IN PAST YEAR FOR COPD 11/27/2024 11/28/2023 TSH 01/15/2025 01/16/2024, 05/12, 04/26/2023, Additional history exists CKD HGB USE SMARTSET 33558 02/05/202502/05, 02/06/2024, 01/16/2024, Additional history exists DTap/Tdap [...] as of this encounter Visit Diagnoses Diagnosis Paroxysmal atrial fibrillation (HCC) Atrial fibrillation documented in this encounter Care Teams Miner Helper Relationship Specialty Start Date End Date Agens Saavedra DO [address] [place] [address] [place] [phone] PCP - General Internal Medicine 04/26/23 documented as of this encounter
--- OUTSIDE RECORDS SUMMARY | 2024-06-14 13:32 | External Medical Summary | Summary of Care ---
Author Name Unknown Organization [facility] Address [address] [place] [place] [place] [address] Phone [phone] Care Team Providers Care Novelty Maker Name Role Phone SaavedraAgnes matthew Primary Care Provider Reason for Visit * Reason Comments Skin Check Pt presents for rout ine skin check, no hx of skin cancer. Pt c/o intermittent tingling sensation to left side of scalp following shingles. Encounter Details Date Type Department Care Team (Late st Contact Info) Description 03/11/2024 11:00 AM EST Office Visit Dermatology [address] [place] [address] Stacey Hathaway PA-C [address] [place] [address] [place] [address] Multiple excoriations*; Pruritus; Folliculitis; Skin exam, screening for cancer; H/O seborrheic dermatitis; Pollock angioma; H/O herpes zoster Allergies Active Allergy Reactions Criticality Noted Date Comments Amoxicillin 04/13/2022 Severe itching Sulfamethoxazole-Trimethopri m 06/26/2018 Affected Kidneys Cephalexin 07/22/2020 Redness and flushing, diarrhea documented as of this encounter (statuses as of 03/11/2024) Medications CYANOCOBALAMIN (VITAMIN B-12) 100 MCG Tablet [...] as needed and directed, Reported on 03/11/2024 Metoprolol Succinate ER 25 MG Oral Tablet Extended Release 24 Hour (toPROL XL)Indications:PA F (paroxysmal atrial fibrillation) (HCC) TAKE ONE TABLET BY MOUTH EVERY DAY 90 Tablet 3 04/06/20 23 Active Amiodarone HCl 200 MG Oral Tablet [...] (HCC),Atrial fibrillation, unspecified type (HCC),Anticoagula tion 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,skilled nursing current use of anticoagulant therapy,Atrial fibrillation (HCC) Take 1-2 tablet by mouth daily as directed by anticoagulation clinic 90 Tablet 1 07/20/19 24 Active Omeprazole 40 MG Oral Capsule Delayed Release (PriLOSEC)Indicat ions:Gastroesopha geal reflux disease without esophagitis TAKE ONE CAPSULE BY MOUTH TWICE DAILY 180 Capsule 1 10/05/19 24 Active Ramipril 2.5 MG Oral Capsule (Altace)Indicatio ns:Stage 3a chronic kidney disease (HCC) TAKE ONE CAPSULE BY MOUTH EVERY DAY 90 Capsule 1 10/05/19 24 Active Gabapentin 100 MG Oral Capsule [...] B, by GOLD 2017 classification ([facility]) INHALE 2 PUFFS EVERY 4 HOURS NEEDED SHORTNESS OF BREATH OR WHEEZING. 18 g 3 01/16/20 24 Active Diclofenac Sodium 1 % External Gel (Voltaren) Apply topically to affected area 4 times a day as needed for Pain. Apply to left knee 100 g 5 01/16/20 24 Active Vitamin D3 1.25 MG (60333 UT) Oral Capsule Take 1 Capsule by mouth once a week. 12 Capsule 01/17/20 24 2024 Active Potassium Chloride Bhavana ER 10 MEQ Oral Tablet Extended Release Take 1 Tablet by mouth in the morning. 90 Tablet 3 01/17/20 24 Active Anoro Ellipta 62.5-25 MCG/ACT Inhalation Aerosol Powder Breath Activated (umeclidinium-riccardo anterol)Indicatio ns:COPD, group B, by GOLD 2017 classification ([facility]) INHALE ONE PUFF BY MOUTH IN [...] if needed) 454 g 03/11/20 24 Active Ketoconazole 2 % External Shampoo (Nizoral)Indicati ons:Seborrheic dermatitis of scalp Massage into scalp and rinse out after 5 minutes--do 3 times weekly Strength: 2 % 120 mL 3 02/24/20 22 2023 Disconti nued(Ref ill) Clindamycin Phosphate 1 % External GelIndications:H/ O folliculitis Apply to each open areas on body and scalp 2x daily (or more when itchy instead of rubbing/picking/sc ratching at areas) 60 g 3 02/24/20 22 2023 Disconti nued(Ref ill) Triamcinolone Acetonide 0.1 % External Ointment (Aristocort)Indic ations:Pruritus Apply to open and itchy areas instead of scratching at them (2x daily or more if needed) 454 g 02/24/20 22 2023 Disconti nued(Ref ill) documented as of this encounter (statuses as of 03/11/2024) Active Problems Problem Noted Date Diagnosed Date [...] rinse after steroid. 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 The best protection is sun avoidance. Seek shade if you can, especially between 10am to 4pm (peak sun hours). 2. Use sunscreen with an SPF (Sun Protection Factor - the number on most sunscreen bottles) of 30 or more that protects from Ultraviolet A (UVA) and Ultraviolet B (UVB) wavelength light (strongly recommend SPF 50). This is referred to as broad spectrum sun protection because it protects from most wa velengths in both spectrums of UVA and UVB light. Unfortunately, even though the protection is broad it is not complete, therefore making sun avoidance the best protection. UVB and UVA have both beenimplicated in causing skin cancers. Older sunscreens only protected from UVB and sunscreens with added UVA protection should contain Titanium dioxide, Zinc oxide, or Avobenzone. Other oil free, non-comedogenic lotion with SPF 30 or greater is fine. 3. Use sun protection if outside for 15 minutes or more. Apply 20-30 minutes before going out and reapply every 1-2 hours. No sunscreen is truly water ''proof'' and it will wash away with sweat, swimming and rubbing. 4. Wear tightly woven, loose fitting (cooler) long sleeved clothing, UV-blocking sun glasses (eyes need protection as well) and wide-brimmed hatwear (no straw hats with holes because light still getsthrough). Strongly recommended *Neutrogena Pure and Free Baby SPF 60 (have separate face and body lotions) orCeraVe AM facial lotion (with SPF 30). If looking for non toxic alternatives-look for non-collette particle zinc. Product examples; Think sport, Think baby, [place], Babo botanicals, [place] botanicals, [place] baby. "Baby" products can be used for all ages. documented in this encounter Progress Notes * Mayank Juarez MD - 03/11/2024 11:46 AM EST I have seen and examined the patient via teledermatology review of chart note and photos with Stacey Hathaway PA-C. I have reviewed and agree with the assessment and plan. Mayank Juarez MD * Stacey Hathaway PA-C - 03/11/2024 11:00 AM EST SUBJECTIVE: History of Present Illness: Gali Simmons is a 78 year old female seen today for follow up of full skin exam. Previous office visit: 03/02/2023 Last attempted treatments include: triamcinolone 0.1% cream prn for excoriations (not using), ketoconazole 2% shampoo BIW and clindamycin gel prn for anibal derm/acne necrotica flaring No vulvar exams performed, no vulvar discoloration and/or lesions to be assessed per pt. No new or changing lesions, per pt. Some PHN (tingling and itch) s/p Zoster at last office visit, has discussed with pcp and optometry. Curing Finisher Documentation Patient offered manager house and declined. REVIEW OF SYSTEMS: SKIN: No other new or changing moles. HEME/LYMPH: No new or enlarging lumps or bumps. CONSTITUTIONAL: No nausea, vomiting, fevers, chills, diarrhea. No recent unintended weight loss, night sweats, appetite or malaise. RESP: negative MSK/EXT: Negative or as per HPI GI: negative CV: Negative or as per HPI Rest of systems are negative or as per HPI SKIN CANCER HX: NONE Reviewed, same day as visit, 0 [facility] Dermatology lab work(s)/pathology report(s) as well as those sent by referring provider prior to seeing pt. MEDICA TIONS: Current Outpatient Medications Medication Sig Dispense Refill CYANOCOBALAMIN (VITAMIN B-12) 100 MCG Tablet Take 1 Tablet by mouth in the morning. Vitamin C 500 MG Oral Tablet (Ascorbic Acid) Take 1 Tablet by mouth every other day. oxygen IN GAS Use as directed 2 L/min(Oxygen) at bedtime as needed for Shortness of Breath. Use at bedtime as needed and directed (Patient taking differently: Use 4 L/min(Oxygen) as directed at bedtime as needed for Shortness of Breath. Use at bedtime as needed and directed) 1 Each 0 Ketoconazole 2 % External Shampoo (Nizoral) Massage into scalp and rinse out after 5 minutes--do 3 times weekly Strength: 2 % 120 mL 3 Clindamycin Phosphate 1 % External Gel Apply to each open areas on body and scalp 2x daily (or morewhen itchy instead of rubbing/picking/scratching at areas) 60 g 3 Triamcinolone Acetonide 0.1 % External Ointment (Aristocort) Apply to open and itchy areas instead of scratching at them (2x daily or more if needed) 454 g 0 Metoprolol Succinate ER 25 MG Oral Tablet Extended Release 24 Hour (toPROL XL) TAKE ONE TABLET BY MOUTH EVERY DAY 90 Tablet 3 Amiodarone HCl 200 MG Oral Tablet (Cordarone) TAKE ONE TABLET BY MOUTH EVERY DAY 90 Tablet 3 Furosemide 20 MG Oral Tablet (Lasix) Take 2 Tablets by mouth once a day on Monday, , Monday, and Monday only AND 3 Tablets once a day on Monday, Monday, and Monday only. Warfarin Sodium 2 MG Oral Tablet (Coumadin) Take 1-2 tablet by mouth daily as directed by anticoagulation clinic 90 Tablet 1 Omeprazole 40 MG Oral Capsule Delayed Release (PriLOSEC) TAKE ONE CAPSULE BY MOUTH TWICE DAILY 180 Capsule 1 Ramipril 2.5 MG Oral Capsule (Altace) TAKE ONE CAPSULE BY MOUTH EVERY DAY 90 Capsule 1 Gabapentin 100 MG Oral Capsule (Neurontin) take 1 capsule in the morning 90 Capsule 1 Gabapentin 300 MG Oral Capsule (Neurontin) Take 1 Capsule by mouth at bedtime. 90 Capsule 1 Atorvastatin Calcium 10 MG Oral Tablet (Lipitor) TAKE ONE TABLET BY MOUTH IN THE MORNING 90 Tablet 3 Albuterol Sulfate HFA 108 (90 Base) MCG/ACT Inhalation Aerosol Solution INHALE 2 PUFFS EVERY 4 HOURS NEEDED SHORTNESS OF BREATH OR WHEEZING. 18 g 3 Diclofenac Sodium 1 % External Gel (Voltaren) Apply topically to affected area 4 times a day as needed for Pain. Apply to left knee 100 g 5 Vitamin D3 1.25 MG (31574 UT) Oral Capsule Take 1 Capsule by mouth once a week. 12 Capsule 0 Potassium Chloride Bhavana ER 10 MEQ Oral Tablet Extended Release Take 1 Tablet by mouth in the morning. 90 Tablet 3 Anoro Ellipta 62.5-25 MCG/ACT Inhalation Aerosol Powder Breath Activated (umeclidinium-vilanterol) INHALE ONE PUFF BY MOUTH IN THE MORNING 180 Each 1 Levothyroxine Sodium 75 MCG Oral Tablet (Levoxyl) take 1 tablet in the morning at least 30 minutes before breakfast or other medications. 90 Tablet 1 Nitrofurantoin Monohyd Macro 100 MG Oral Capsule (Macrobid) Take 1 Capsule by mouth 2 times a day. With meals 10 Capsule 0 Sertraline HCl 50 MG Oral Tablet (Zoloft) TAKE ONE TABLET BY MOUTH IN THE MORNING 90 Tablet 1 Fluticasone Propionate 50 MCG/ACT Nasal Suspension (Flonase) Administer 2 Sprays into each nostril in the morning. 48 g 1 Famotidine 20 MG Oral Tablet (Pepcid) Take 1 Tablet by mouth in the morning. 90 Tablet 1 No current facility-administered medications for this visit. ALLERG IES: Amoxicillin, Bactrim [sulfamethoxazole-trimethoprim], and Cephalexin OBJECT LYNDA: GEN: alert, no distress, appears oriented, pleasant, and cooperative. SKIN: Detailed exam of hair, face including lids and lips, neck, chest, abdomen, back, bilateral upper ext. (arm, hand, fingers), bilateral lower ext. (leg, foot, toes), palpation of scalp, fingernails, toenails, inguinal areas, groin (mons pubis), buttocks, and anus completed: 1. L forehead-Well defined white and hyperpigmented patches. 2. Upper back/chest/upper arms-Extensive white atrophic scarring on upper back/shoulders with few excoriated inflammatory papules on upper back/chest. 3. Scalp-2 pink-red excoriations nor evidence of white greasy scaled areas throughout scalp. 4. Face/trunk-Some scattered bright red to purple well defined 1-3mm macules and papules. ASSESS MENT/PLAN: 1. Post inflammatory hyperpigmentation secondary to Zoster on L forehead/ocular region-Was seen by optometry and pcp. Still having some post herpetic neuralgia, reached out to pcp after last visit todiscuss treatment options; pt is on gabapentin 400mg currently. -Explained to patient that she should be sure to discuss with her pcp her gabapentin dose if area is still symptomatic. 2. Secondary excoraited lesions on upper back and arms-Continue rehydration needed with limited soap, triamcinolone ointment BID prn to itchy and excoriated areas, and when itchy instead of scratching, and cerave cream BID. 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 3. Seborrheic dermatitis/acne necrotica, mild flare-Continue ketoconazole 2% shampoo BIW and use clindamycin gel BID or more when itchy (instead of rubbing, picking or scratching at areas). 4. Angiomas on face/trunk/bilat arms and legs-no tx needed, pt given reassurance. Patient alone today. Photo(s) of #1-4 taken, pt verbally consented to having photo(s) taken. Follow-up: 1 year for full skin exam Applicable photos (if any) and chart reviewed by Dr. Mayank Juarez. Presumed diagnoses, expected natural histories, and management options discussed with the patient at length. Questions were addressed and anticipatory guidance provided. They were instructed to contact me if additional questions, concerns, or problems develop in the interim. -There were no barriers to learning and no other pain was related to today's visit. The patient and/or person accompanying patient demonstrates understanding of the visit and treatment. Stacey Hathaway PA-C 03/11/2024 10:58 AM Dermatology [address] [place] [phone] documented in this encounter Nursing Notes * Ayaka Meléndez CMA - 03/11/2024 10:54 AM EST Chief Complaint Patient presents with Skin Check Pt presents for routine skin check, no hx of skin cancer. Pt c/o intermittent tingling sensation toleft side of scalp following shingles. documented in this encounter Plan of Treatment Upcoming Encounters Date Type Department Care Team (Late st Contact Info) Description 03/27/2024 10:00 AM EST Anticoagulation Pharmacy, [address] [place] [address] [place] [address] 07/16/2024 8:50 AM EDT Office Visit Family Medicine [address] [place] [phone] [address]nes [address] [place] [address] 09/09/2024 10:30 AM EDT Nurse Only Ancillary [address] [place] [address] [place], Nurse Annual Wellness [address] [place] [address] [place] [address] 09/24/2024 2:00 PM EDT Office Visit Cardiology [address] [place] [address] Price De PA-C [address] [place] [address] 03/19/2025 2:20 PM EST Office Visit Dermatology [address] [place] [address] Stacey Hathaway PA-C [address] [place] [address] [place] [address] Scheduled Procedures Name Priority Associated Diagnoses Date/Ti me COLONOSCOPY FLEXIBLE PROXIMA L DIAGNOSTIC Recall Encounter for screening colonoscopy Health Maintenance Due Date Last Done Comments DXA Scan 1945 Pneumococcal Vaccine: 65+ Years (1 of 2 - PCV) 1953 Alpha-1 Antitrypsin 1965 Zoster Vaccines (1 of 2) 1997 COVID-19 Vaccine (1 - season) 2023 Influenza Vaccine (FLU shot) (#1) 2023 CKD PHOS USE SMARTSET 22927 12/31/202312/10, 06/10/2019, 04/12/2018 Albumin/Creatinine Ratio 04/26/2024 024, 05/26/2022, 04/26/2021 GFR 08/06/2024 02/06/2024, 11/2023, 11/28/2023, Additional history exists Adult Wellness Visit 09/05/2024 09/06/2023, 08/31/19 23 Depression Screening 09/05/2024 09/06/2023, 09/06/19 24 O2 ASSESSMENT COMPLETED IN PAST YEAR FOR COPD 11/27/2024 11/28/2023 TSH 01/15/2025 01/16/2024, 05/12, 04/26/2023, Additional history exists CKD HGB USE SMARTSET 79555 02/05/202502/05, 02/06/2024, 01/16/2024, Additional history exists DTap/Tdap [...] Procedure Name Priority Date/Time Associated Diagnosis Comments DERM EXAM - DERM (IMAGES ONLY, NO REPORT) Routine 03/11/2024 11:11 AM EST Pruritus Folliculitis Skin exam, screening for cancer H/O seborrheic dermatitis Pollock angioma H/O herpes zoster Multiple excoriations documented in this encounter Results * DERM EXAM - DERM (IMAGES ONLY, NO REPORT) (03/11/2024 11:11 AM EST) Narrative Scheduling, Silent - 03/11/2024 11:11 AM EST This is an imaging study not interpreted or resulted by a [employer] or [employer] contracted radiologist. us Stacey Hathaway PA-C RADIOLOGY ([facility] ) Final Result documented in this encounter Visit Diagnoses Diagnosis Multiple excoriations- Primary Other and unspecified superficial injury of other, multiple, and unspecified sites, without mention of infection Pruritus Unspecified pruritic disorder Folliculitis Other specified disease of hair and hair follicles Skin exam, screening for cancer Screening for malignant neoplasm of the skin H/O seborrheic dermatitis Personal history of diseases of skin and subcutaneous tissue Pollock angioma Nevus, non-neoplastic H/O herpes zoster Personal history of other infectious and parasitic disease documented in this encounter Care Teams Novelty Maker Relationship Specialty Start Date End Date Agnes Saavedra DO [address] [place] [address] [place] [address] PCP - General Internal Medicine 04/26/23 documented as of this encounter
--- OUTSIDE RECORDS SUMMARY | 2024-06-14 13:32 | External Medical Summary ---
Author Name Unknown Address Unknown Organization : Laboratory Report Ordering Provider Test Date Status KAYLEE CHIU 03/27/2024 10:03:50 Final Therapeutic ranges for non-o perative patients:
Prophylaxsis/treatment of DVT: (Range:2.0-3.0)
Treatment of pulmonary embolism:(Range:2.0-3.0)
Prevention of systemic embolism from:
-tissue heart valves
-acute myocardial infarction
-valvular heart disease
-atrial fibrillation
(Range: 2.0-3.0)
Mechanical prosthetic valves: (Range: 2.5-3.5) Observation Date Value Abnormality Reference (Units ) Status INR in Capillary blood by Coagulation assay 03/27/2024 10:03:50 2.4 (INR) Final Performing Location
--- OUTSIDE RECORDS SUMMARY | 2024-06-14 13:32 | External Medical Summary | Summary of Care ---
Author Name Unknown Organization [facility] Address [address] [facility] [place] [place] [address] Phone [phone] Care Team Providers Care Oncology Nurse Navigator Name Role Phone Saavedra Agnes Gonsalez Primary Care Provider [phone] Reason for Visit * Reason Comments Dosage Adjustment In Person (Anticoag Cl inic) Encounter Details Date Type Department Care Team (Latest Contact Info) Description 03/27/2024 10:00 AM [facility] Anticoagulation Pharmacy, [address] [place] [address] [place] [address] Anticoagulation 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*; Paroxysmal atrial fibrillation (HCC) Allergies Active Allergy Reactions Criticality Noted Date Comments Amoxicillin 04/13/2022 Severe itching Sulfamethoxazole-Trimethopri m 06/26/2018 Affected Kidneys Cephalexin 07/22/2020 Redness and flushing, diarrhea documented as of this encounter (statuses as of 03/27/2024) Medications CYANOCOBALAMIN (VITAMIN B-12) 100 MCG Tablet Take 1 Tablet by mouth in the morning. Active Vitamin C 500 MG Oral Tablet (Ascorbic Acid) Take 1 Tablet by mouth every other day. Active oxygen IN GASIndications:Michel amos diastolic congestive heart failure (HCC),COPD, group B, by GOLD 2017 classification ([facility]) Use as directed 2 L/min(Oxygen) at bedtime as needed for Shortness of Breath. 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 18 g 3 01/16/20 24 Active Diclofenac Sodium 1 % External Gel (Voltaren) Apply topically to affected area 4 times a day as needed for Pain. Apply to left knee 100 g 5 01/16/20 24 Active Vitamin D3 1.25 MG (43946 UT) Oral Capsule Take 1 Capsule by mouth once a week. 12 Capsule 01/17/20 24 025 Active Potassium Chloride Bhavana ER 10 MEQ Oral Tablet Extended Release Take 1 Tablet by mouth in the morning. 90 Tablet 3 01/17/20 24 Active Anoro Ellipta 62.5-25 MCG/ACT Inhalation Aerosol Powder Breath Activated (umeclidinium-riccardo anterol)Indicatio ns:COPD, group B, by GOLD 2017 classification ([facility]) INHALE ONE PUFF BY MOUTH IN THE [...] DAY 90 Capsule 1 03/21/20 24 Active documented as of this encounter (statuses as of 03/27/2024) Active Problems Problem Noted Date Diagnosed Date [...] rinse after steroid. 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 Not on file Not on file Not on file documented as of this encounter Progress Notes * Elizabeth Macdonald, [facility] - 03/27/2024 10:01 AM EST Medication Therapy Disease Management - Anticoagulation Patient: Gali Simmons | : 1945 Subjective Patient-Reported Symptoms: Patient Findings Negatives: Signs/symptoms of thrombosis, Signs/symptoms of bleeding, Change in health, Change in alcohol use, Change in activity, Upcoming invasive procedure, Missed doses, Extra doses, Change in medications, Change in diet/appetite, Bruising Objective Current Warfarin Dose As of 03/27/2024 Warfarin maintenance plan: 2 mg (2 mg x 1) every Tue; 1 mg (2 mg x 0.5) all other days INR Result As of 03/27/2024 INR goal: 2.0-3.0 INR used for dosin.4 (03/27/2024) Assessment & Plan Warfarin Plan As of 03/27/2024 Full warfarin instructions: 2 mg every Tue; 1 mg all other days No change documented: Elizabeth Macdonald alma Next INR check: 05/08/2024 Repeat PT/INR in 6 week(s) Weekly dose: not changed Additional Dosing Information: Description Amiodarone 200 mg daily I spent a total of 10-19 minutes (exact time 10 mins) on the date of service in preparation, delivery, and documentation of the care provided to Gali Simmons excluding any time spent in the performance of separately billed services or time spent by another provider/QHP. Elizabeth Macdonald [facility] Clinical Pharmacist 03/27/2024, 10:01 AM documented in this encounter Plan of Treatment Upcoming Encounters Date Type Department Care Team (Late st Contact Info) Description 05/08/2024 10:30 AM EST Anticoagulation Pharmacy, [address] [place] [address] [place] [address] 07/16/2024 8:50 AM EDT Office Visit Family Medicine [address] [place] [phone] Agnes Saavedra[address] [place] [address] 09/09/2024 10:30 AM EDT Nurse Only Ancillary [address] [place] [address] [place], Nurse [address] [place] [address] 09/24/2024 2:00 PM EDT Office Visit Cardiology [address] [place] [address] Price De PA-C [address] [place] [address] 03/19/2025 2:20 PM EST Office Visit Dermatology [address] [place] [address] Stacey Hathaway PA-C [address] [place] [address] [place] [address] Scheduled Procedures Name Priority Associated Diagnoses Date/Ti me COLONOSCOPY FLEXIBLE PROXIMA L DIAGNOSTIC Recall Encounter for screening colonoscopy Health Maintenance Due Date Last Done Comments DXA Scan 1945 Pneumococcal Vaccine: 65+ Years (1 of 2 - PCV) 1951 Alpha-1 Antitrypsin 1965 Zoster Vaccines (1 of 2) 1997 COVID-19 Vaccine ( season) 2023 Influenza Vaccine (FLU shot) (#1) 2023 CKD PHOS USE SMARTSET 47606 12/31/202312/10, 06/10/2019, 04/12/2018 Albumin/Creatinine Ratio 04/26/2024 024, 05/26/2022, 04/26/2021 GFR 08/06/2024 02/06/2024, 11/2023, 11/28/2023, Additional history exists Adult Wellness Visit 09/05/2024 09/06/2023, 08/31/19 23 Depression Screening 09/05/2024 09/06/2023, 09/06/19 24 O2 ASSESSMENT COMPLETED IN PAST YEAR FOR COPD 11/27/2024 11/28/2023 TSH 01/15/2025 01/16/2024, 05/12, 04/26/2023, Additional history exists CKD HGB USE SMARTSET 70100 02/05/202502/05, 02/06/2024, 01/16/2024, Additional history exists DTap/Tdap [...] Procedure Name Priority Date/Time Associated Diagnosis Comments INR FINGERSTICK, POINT OF CARE STAT 03/27/2024 10:03 AM EST Paroxysmal atrial fibrillation (HCC) Anticoagulation 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 documented in this encounter Results * INR FINGERSTICK, POINT OF CARE (03/27/2024 10:03 AM EST) Fingerstick INR 2.4 INR 4 10:05 AM EST [facility] 00 Blood 03/27/2024 10:0 3 AM EST 03/27/2024 10:05 AM EST Narrative [facility] 55-00 - 03/27/2024 10:05 AM EST Therapeutic ranges for non-operative patients: Prophylaxsis/treatment of DVT: (Range:2.0-3.0) Treatment of pulmonary embolism:(Range:2.0-3.0) Prevention of systemic embolism from: -tissue heart valves -acute myocardial infarction -valvular heart disease -atrial fibrillation (Range: 2.0-3.0) Mechanical prosthetic valves: (Range: 2.5-3.5) Elizabeth Macdonald [facility] POINT OF CARE TEST DOCKED DEVICE UNSOLICITED RESULTS Final Result [facility] [address] [place] [address] Drive [place] [address] documented in this encounter Visit Diagnoses Diagnosis Anticoagulation 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- Primary Encounter for therapeutic drug monitoring Paroxysmal atrial fibrillation (HCC) Atrial fibrillation documented in this encounter Care Teams Oncology Nurse Navigator Relationship Specialty Start Date End Date Agnes Saavedra DO [address] [place] [address] [place] [phone] PCP - General Internal Medicine 04/26/23 documented as of this encounter"
--- OUTSIDE RECORDS SUMMARY | 2024-06-14 13:32 | External Medical Summary | Summary of Care ---
Author Name Unknown Organization [facility] Address [address] [place] [address] Phone [phone] Care Team Providers Care Special Systems Technician Name Role Phone Agnes Saavedra Primary Care Provider Reason for Visit * Reason Comments eRx-Medication Refill Encounter Details Date Type Department Care Team (Late st Contact Info) Description 03/20/2024 Refill Family Medicine [address] [phone] Geo Mitchell MD [address] [place] [address] [place] [address] Stage 3a chronic kidney disease (HCC) Allergies Active Allergy Reactions Criticality Noted Date Comments Amoxicillin 04/13/2022 Severe itching Sulfamethoxazole-Trimethopri m 06/26/2018 Affected Kidneys Cephalexin 07/22/2020 Redness and flushing, diarrhea documented as of this encounter (statuses as of 03/21/2024) Medications CYANOCOBALAMIN (VITAMIN B-12) 100 MCG Tablet [...] Hour (toPROL XL)Indications:P AF (paroxysmal atrial fibrillation) (HCC) TAKE ONE TABLET BY MOUTH EVERY DAY 90 Tablet 3 023 Active Amiodarone HCl 200 MG Oral Tablet (Cordarone)Indic ations:Paroxysma l atrial fibrillation (HCC) TAKE ONE TABLET BY MOUTH EVERY DAY 90 Tablet 3 024 Active Furosemide 20 MG Oral Tablet (Lasix)Indicatio ns:Bilateral lower extremity edema Take 2 Tablets by mouth once a day on Monday, , Monday, and Monday only AND 3 Tablets once a day on Monday, Monday, and Monday only. 024 Active Warfarin Sodium 2 MG Oral Tablet (Coumadin)Indica tions:Paroxysmal atrial fibrillation (HCC),Atrial fibrillation, unspecified type (HCC),Anticoagul ation 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,intermediate current use of anticoagulant therapy,Atrial fibrillation (HCC) Take 1-2 tablet by mouth daily as directed by anticoagulation clinic 90 Tablet 1 024 Active Omeprazole 40 MG Oral Capsule Delayed Release (PriLOSEC)Indica tions:Gastroesop hageal reflux disease without esophagitis TAKE ONE CAPSULE BY MOUTH TWICE DAILY 180 Capsule 1 024 Active Gabapentin 100 MG Oral [...] ons:COPD, group B, by GOLD 2017 classification ([facility]) INHALE 2 PUFFS EVERY 4 HOURS NEEDED SHORTNESS OF BREATH OR WHEEZING. 18 g 3 024 Active Diclofenac Sodium 1 % External Gel (Voltaren) Apply topically to affected area 4 times a day as needed for Pain. Apply to left knee 100 g 5 Active Vitamin D3 1.25 MG (63927 UT) Oral Capsule Take 1 Capsule by mouth once a week. 12 Capsule 024 2024 Active Potassium Chloride Bhavana ER 10 MEQ Oral Tablet Extended Release Take 1 Tablet by mouth in the morning. 90 Tablet 3 Active Anoro Ellipta 62.5-25 MCG/ACT Inhalation Aerosol Powder Breath Activated (umeclidinium-vi lanterol)Indicat ions:COPD, group B, by GOLD 2017 classification ([facility]) INHALE ONE PUFF BY MOUTH IN THE MORNING 180 Each 1 Active Levothyroxine Sodium 75 MCG Oral Tablet (Levoxyl)Indicat ions:Acquired hypothyroidism take 1 tablet in the morning at least 30 minutes before breakfast or other medications. 90 Tablet 1 Active Nitrofurantoin Monohyd Macro 100 MG Oral [...] EVERY DAY 90 Capsule 1 024 Active Ramipril 2.5 MG Oral Capsule (Altace)Indicati ons:Stage 3a chronic kidney disease (HCC) TAKE ONE CAPSULE BY MOUTH EVERY DAY 90 Capsule 1 024 2023 Discontinued documented as of this encounter (statuses as of 03/21/2024) Active Problems Problem Noted Date Diagnosed Date [...] rinse after steroid. 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 Not on file Not on file documented as of this encounter Miscellaneous Notes * Telephone Encounter - Lashawn Cohen RPh - 03/21/2024 8:12 AM ESTSigned Prescriptions: Disp Refills Ramipril 2.5 MG Oral Capsule (Altace) 90 Cap*1 Sig: TAKE ONE CAPSULE BY MOUTH EVERY DAYAuthorizing Provider: Ellie MITCHELL User: LASHAWN COHEN MA documented in this encounter Plan of Treatment Upcoming Encounters Date Type Department Care Team (Late st Contact Info) Description 03/27/2024 10:00 AM EST Anticoagulation Pharmacy, [address] [place] [phone] [place] [address] 07/16/2024 8:50 AM EDT Office Visit Family Medicine [address] [place] [phone] Agnes Saavedra [address] [place] [address] 09/09/2024 10:30 AM EDT Nurse Only Ancillary [address] [place] [address] [place], Nurse Annual [address] [place] [address] 09/24/2024 2:00 PM EDT Office Visit Cardiology [address] [place] [address] Price De PA-C [address] [place] [address] 03/19/2025 2:20 PM EST Office Visit Dermatology [address] [place] [address] Stacey Hathaway PA-C [address] [place] [address] [place] [address] Scheduled Procedures Name Priority Associated Diagnoses Date/Ti me COLONOSCOPY FLEXIBLE PROXIMA L DIAGNOSTIC Recall Encounter for screening colonoscopy Health Maintenance Due Date Last Done Comments DXA Scan 1945 Pneumococcal Vaccine: 65+ Years (1 of 2 - PCV) 1951 Alpha-1 Antitrypsin 1965 Zoster Vaccines (1 of 2) 1997 COVID-19 Vaccine (1 - 2024-25 season) 2023 Influenza Vaccine (FLU shot) (#1) 2023 CKD PHOS USE SMARTSET 38804 12/31/202312/10, 06/10/2019, 04/12/2018 Albumin/Creatinine Ratio 04/26/2024 024, 05/26/2022, 04/26/2021 GFR 08/06/2024 02/06/2024, 11/2023, 11/28/2023, Additional history exists Adult Wellness Visit 09/05/2024 09/06/2023, 08/31/19 23 Depression Screening 09/05/2024 09/06/2023, 09/06/19 24 O2 ASSESSMENT COMPLETED IN PAST YEAR FOR COPD 11/27/2024 11/28/2023 TSH 01/15/2025 01/16/2024, 05/12, 04/26/2023, Additional history exists CKD HGB USE SMARTSET 39885 02/05/202502/05, 02/06/2024, 01/16/2024, Additional history exists DTap/Tdap [...] as of this encounter Visit Diagnoses Diagnosis Stage 3a chronic kidney disease (HCC) documented in this encounter Care Teams Special Systems Technician Relationship Specialty Start Date End Date Agnes Saavedra DO [address] [place] [address] [place] [phone] PCP - General Internal Medicine 04/26/23 documented as of this encounter
--- OUTSIDE RECORDS SUMMARY | 2024-06-14 13:32 | External Medical Summary | Summary of Care ---
Author Name Unknown Organization [facility] Address [address] [facility] [place] [address] Phone [phone] Care Team Providers Care Middle Card Tender Name Role Phone SaavedraAgnes matthew Primary Care Provider [phone] Reason for Visit * Reason Comments Skin Check Pt presents for rout ine skin check, no hx of skin cancer. Pt c/o intermittent tingling sensation to left side of scalp following shingles. Encounter Details Date Type Department Care Team (Late st Contact Info) Description 03/11/2024 11:00 AM EST Office Visit Dermatology [address] [place] [address] Stacey Hathaway PA-C [address] [place] [address] [place] [address] Multiple excoriations*; Pruritus; Folliculitis; Skin exam, screening [...] (HCC),Atrial fibrillation, unspecified type (HCC),Anticoagula tion 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,senior care current use of anticoagulant therapy,Atrial fibrillation (HCC) [...] ns:COPD, group B, by GOLD 2017 classification ([facility]) INHALE 2 PUFFS EVERY 4 HOURS NEEDED SHORTNESS OF BREATH OR WHEEZING. 18 g 3 01/16/20 24 Active Diclofenac Sodium 1 % External Gel (Voltaren) Apply topically to affected area 4 times a day as needed for Pain. Apply to left knee 100 g 5 01/16/20 24 Active Vitamin D3 1.25 MG (62931 UT) Oral Capsule Take 1 Capsule by mouth once a week. 12 Capsule 01/17/20 24 2024 Active Potassium Chloride Bhavana ER 10 MEQ Oral Tablet Extended Release Take 1 Tablet by mouth in the morning. 90 Tablet 3 01/17/20 24 Active Anoro Ellipta 62.5-25 MCG/ACT Inhalation Aerosol Powder Breath Activated (umeclidinium-riccardo anterol)Indicatio ns:COPD, group B, by GOLD 2017 classification ([facility]) INHALE ONE PUFF BY MOUTH IN THE [...] rinse after steroid. 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 Family Readiness Support Assistant Documentation Patient offered bingo usher and declined. REVIEW OF SYSTEMS: SKIN: No [...] NONE Reviewed, same day as visit, 0 [facility] Dermatology lab work(s)/pathology report(s) as well as [...] 100 g 5 Vitamin D3 1.25 MG (98621 UT) Oral Capsule Take 1 Capsule by [...] that she should call with any new outside sales representative insurance lesions and will cover with a bandage [...] Stacey Hathaway PA-C 03/11/2024 10:58 AM Dermatology [address] [place] [phone] documented in this encounter Nursing Notes * [...] Description 03/27/2024 10:00 AM EST Anticoagulation Pharmacy, [address] [place] [address] [place] [address] 07/16/2024 8:50 AM EDT Office Visit Family Medicine [address] [place] [phone] Agnes [address] [place] [address] 09/09/2024 10:30 AM EDT Nurse Only Ancillary [address] [place] [address] [place], Nurse [address] [place] [address] 09/24/2024 2:00 PM EDT Office Visit Cardiology [address] [place] [address] Price De PA-C [address] [place] [address] Scheduled Procedures Name Priority Associated Diagnoses Date/Ti me COLONOSCOPY FLEXIBLE PROXIMA L DIAGNOSTIC Recall Encounter for screening colonoscopy Health Maintenance Due Date Last Done Comments DXA Scan 1945 Pneumococcal Vaccine: 65+ Years (1 of 2 - PCV) 1951 Alpha-1 Antitrypsin 1965 Zoster Vaccines (1 of 2) 1997 COVID-19 Vaccine ( - season) 2023 Influenza Vaccine (FLU shot) (#1) 2023 CKD PHOS USE SMARTSET 77802 12/31/202312/10, 06/10/2019, 04/12/2018 Albumin/Creatinine Ratio 04/26/2024 024, 05/26/2022, 04/26/2021 GFR 08/06/2024 02/06/2024, 10/0 11/2023, 11/28/2023, Additional history exists Adult Wellness Visit 09/05/2024 09/06/2023, 08/31/19 23 Depression Screening 09/05/2024 09/06/2023, 09/06/19 24 O2 ASSESSMENT COMPLETED IN PAST YEAR FOR COPD 11/27/2024 11/28/2023 TSH 01/15/2025 01/16/2024, 05/12, 04/26/2023, Additional history exists CKD HGB USE SMARTSET 89302 02/05/202502/05, 02/06/2024, 01/16/2024, Additional history exists DTap/Tdap [...] study not interpreted or resulted by a [facility] or [facility] contracted radiologist. Stacey Hathaway PA-C RADIOLOGY (RAD GENERAL ) Final Result documented in this [...] disease documented in this encounter Care Teams Middle Card Tender Relationship Specialty Start Date End Date Agnes Saavedra DO [address] [place] [address] [place] [address] PCP - General Internal Medicine 04/26/23 documented as of this encounter
--- OUTSIDE RECORDS SUMMARY | 2024-06-14 13:32 | External Medical Summary | Summary of Care ---
Author Name Unknown Organization [facility] Address [address] [place] [address] Phone [phone] Care Team Providers Care Vice Chancellor Name Role Phone Merle Puga DO Primary Care Provider [phone] Reason for Visit * Reason Onset Date Comments Medication Refill 03/08/2024 Encounter Details Date Type Department Care Team (Late st Contact Info) Description 03/08/2024 Refill Family Medicine [address] [phone] Merle Puga DO [address] [place] [address] [place] [address] Seasonal allergies; GERD (gastroesophageal reflux disease) Allergies Active Allergy Reactions Criticality Noted Date Comments Amoxicillin 04/13/2022 Severe itching Sulfamethoxazole-Trimethopri m 06/26/2018 Affected Kidneys Cephalexin 07/22/2020 Redness and flushing, diarrhea documented as of this encounter (statuses as of 03/08/2024) Medications CYANOCOBALAMIN (VITAMIN B-12) 100 MCG Tablet [...] bedtime as needed and directed, Reported on 09/06/2023 Ketoconazole 2 % External Shampoo (Nizoral)Indicati ons:Seborrheic dermatitis of scalp Massage into scalp and rinse out after 5 minutes--do 3 times weekly Strength: 2 % 120 mL 3 02/24/20 22 Active Clindamycin Phosphate 1 % External GelIndications:H/ O folliculitis Apply to each open areas on body and scalp 2x daily (or more when itchy instead of rubbing/picking/sc ratching at areas) 60 g 3 02/24/20 22 Active Triamcinolone Acetonide 0.1 % External Ointment (Aristocort)Indic ations:Pruritus Apply to open and itchy areas instead of scratching at them (2x daily or more if needed) 454 g 02/24/20 22 Active Metoprolol Succinate ER 25 MG Oral [...] 01/16/20 24 Active Vitamin D3 1.25 MG (15015 UT) Oral Capsule Take 1 Capsule by [...] morning. 90 Tablet 1 03/08/20 24 Active Fluticasone Propionate 50 MCG/ACT Nasal Suspension (Flonase)Indicati ons:Seasonal allergies 2 sprays each nostril daily 48 g 1 09/05/19 24 2023 Disconti nued(Ref ill) Famotidine 20 MG Oral Tablet (Pepcid)Indicatio ns:GERD (gastroesophageal reflux disease) TAKE ONE TABLET BY MOUTH EVERY DAY 90 Tablet 1 09/05/19 24 2023 Disconti nued(Ref ill) documented as of this encounter (statuses as of 03/08/2024) Active Problems Problem Noted Date Diagnosed Date [...] and rinse after steroid. Test performed by [employer] PRODUCT ASSURANCE ENGINEER CPFT Diastolic dysfunction 08/01/2017 DIVERTICULOSIS OF COLON Family history of colon cancer Gastroesophageal reflux disease without esophagi tis GENERAL OSTEOARTHROSIS Sciatica Carpal tunnel syndrome documented as of this encounter (statuses as of 03/08/2024) Resolved Problems Problem Noted Date Diagnosed Date [...] as of this encounter (statuses as of 03/08/2024) Immunizations Name Administration Dates Next Due TDAP [...] No 09/06/2023 Does the household have a [facility] source [facility] income? 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 Authorizing Provider: MERLE PUGA Famotidine 20 MG Oral Tablet (Pepcid) 90 Tab*1 Sig: Take 1 Tablet by mouth in the morning. Authorizing Provider: MERLE PUGA * Telephone Encounter - Ricarda Perry CMA - 03/08/2024 10:14 AM EST Pending Prescriptions: Disp Refills Fluticasone Propionate 50 MCG/ACT Nasal Dominique*48 g 1 Sig: Administer 2 Sprays into each nostril in the morning. Famotidine 20 MG Oral Tablet (Pepcid) 90 Tab*1 Sig: Take 1 Tablet by mouth in the morning. * Telephone Encounter - Karen Pina OSA - 03/08/2024 9:20 AM EST Did you pend patient's preferred pharmacy and medication before forwarding?yes Pharmacy: [id number] [address] [facility] Pending Prescriptions: Disp Refills Fluticasone Propionate 50 MCG/ACT Nasal S*48 g 1 Sig: Administer 2 Sprays into each nostril in the morning. Famotidine 20 MG Oral Tablet (Pepcid) 90 Tab*1 Sig: Take 1 Tablet by mouth in the morning. Last Visit: 11/28/2023 (in office), 04/01/2021 (telemedicine) Next Visit: 07/16/2024 If no future appointments scheduled, and last appointment is greater than a year ago, please schedule patient for a follow-up appointment Last date the medication was ordered: 24 Is this request for a controlled substance?No [...] 03/11/2024 11:00 AM EST Office Visit Dermatology [address] [place] [address] Stacey Hathaway PA-C [address] [place] [address] [place] [phone] 03/27/2024 10:00 AM EST Anticoagulation Pharmacy, [address] [place] [address] [place] [address] 07/16/2024 8:50 AM EDT Office Visit Family Medicine [address] [place] [phone] Merle Puga, [address] [place] [address] 09/09/2024 10:30 AM EDT Nurse Only Ancillary [address] [place] [address] [place], Nurse Annual Wellness [address] [place] [address] [place] [address] 09/24/2024 2:00 PM EDT Office Visit Cardiology [address] [place] [address] Price De PA-Shanta [address] [place] [address] Scheduled Procedures Name Priority Associated Diagnoses Date/Ti me COLONOSCOPY FLEXIBLE PROXIMA L DIAGNOSTIC Recall Encounter for screening colonoscopy Health Maintenance Due Date Last Done Comments DXA Scan 1945 Pneumococcal Vaccine: 65+ Years (1 of 2 - PCV) 1951 Alpha-1 Antitrypsin 1965 Zoster Vaccines (1 of 2) 1997 COVID-19 Vaccine ( - season) 2023 Influenza Vaccine (FLU shot) (#1) 2023 CKD PHOS USE SMARTSET 79057 12/31/202312/10, 06/10/2019, 04/12/2018 Albumin/Creatinine Ratio 04/26/2024 024, 05/26/2022, 04/26/2021 GFR 08/06/2024 02/06/2024, 1011/2023, 11/28/2023, Additional history exists Adult Wellness Visit 09/05/2024 09/06/2023, 08/31/19 23 Depression Screening 09/05/2024 09/06/2023, 09/06/19 24 O2 ASSESSMENT COMPLETED IN PAST YEAR FOR COPD 11/27/2024 11/28/2023 TSH 01/15/2025 01/16/2024, 05/12, 04/26/2023, Additional history exists CKD HGB USE SMARTSET 41750 02/05/202502/05, 02/06/2024, 01/16/2024, Additional history exists DTap/Tdap [...] as of this encounter Visit Diagnoses Diagnosis Seasonal allergies Allergic rhinitis, cause unspecified GERD (gastroesophageal reflux disease) Esophageal reflux documented in this encounter Care Teams Vice Chancellor Relationship Specialty Start Date End Date Merle Puga DO [address] [place] [address] [place] [phone] PCP - General Internal Medicine 04/26/23 documented as of this encounter
--- OUTSIDE RECORDS SUMMARY | 2024-06-14 13:32 | External Medical Summary | Summary of Care ---
Author Name Unknown Organization [facility] Address [address] [place] [address] Phone [phone] Care Team Providers Care Wardrobe Supervisor Name Role Phone Agnes Saavedra Primary Care Provider Encounter Details Date Type Department Care Team (Latest Contact Info) Description 03/11/2024 11:11 AM EST - 03/11/2024 11:59 PM EST Hospital Encounter Radiology Film File [address] [place] [address] Arrived Discharge Disposition: Home - Self Care Allergies Active Allergy Reactions Criticality Noted Date Comments Amoxicillin 04/13/2022 Severe itching Sulfamethoxazole-Trimethopri m 06/26/2018 Affected Kidneys Cephalexin 07/22/2020 Redness and flushing, diarrhea documented as of this encounter (statuses as of 03/12/2024) Medications CYANOCOBALAMIN (VITAMIN B-12) 100 MCG Tablet [...] (HCC),Atrial fibrillation, unspecified type (HCC),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 18 g 3 01/16/20 24 Active Diclofenac Sodium 1 % External Gel (Voltaren) Apply topically to affected area 4 times a day as needed for Pain. Apply to left knee 100 g 5 01/16/20 24 Active Vitamin D3 1.25 MG (17511 UT) Oral Capsule Take 1 Capsule by mouth once a week. 12 Capsule 01/17/20 24 025 Active Potassium Chloride Bhavana ER 10 MEQ Oral Tablet Extended Release Take 1 Tablet by mouth in the morning. 90 Tablet 3 01/17/20 24 Active Anoro Ellipta 62.5-25 MCG/ACT Inhalation Aerosol Powder Breath Activated (umeclidinium-riccardo anterol)Indicatio ns:COPD, group B, by GOLD 2017 classification ([facility]) INHALE ONE PUFF BY MOUTH IN THE [...] if needed) 454 g 03/11/20 24 Active documented as of this encounter (statuses as of 03/12/2024) Active Problems Problem Noted Date Diagnosed Date [...] rinse after steroid. 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 Not on file Not on file documented as of this encounter Plan of Treatment Upcoming Encounters Date Type Department Care Team (Late st Contact Info) Description 03/27/2024 10:00 AM EST Anticoagulation Pharmacy, [address] [place] [address] [place] [address] 07/16/2024 8:50 AM EDT Office Visit Family Medicine [address] [place] [phone] Agnes Saavedra, [address] [place] [address] 09/09/2024 10:30 AM EDT Nurse Only Ancillary [address] [place] [address] [place], Nurse [address] [place] [address] 09/24/2024 2:00 PM EDT Office Visit Cardiology [address] [place] [address] Price De PA-C [address] [place] [address] 03/19/2025 2:20 PM EST Office Visit Dermatology [address] [place] [address] Stacey Hathaway PA-C [address] [place] [address] [place] [address] Scheduled Procedures Name Priority Associated Diagnoses Date/Ti me COLONOSCOPY FLEXIBLE PROXIMA L DIAGNOSTIC Recall Encounter for screening colonoscopy Health Maintenance Due Date Last Done Comments DXA Scan 1945 Pneumococcal Vaccine: 65+ Years (1 of 2 - PCV) 1951 Alpha-1 Antitrypsin 1965 Zoster Vaccines (1 of 2) 1997 COVID-19 Vaccine ( - season) 2023 Influenza Vaccine (FLU shot) (#1) 2023 CKD PHOS USE SMARTSET 11799 12/31/202312/10, 06/10/2019, 04/12/2018 Albumin/Creatinine Ratio 04/26/2024 024, 05/26/2022, 04/26/2021 GFR 08/06/2024 02/06/2024, 11/2023, 11/28/2023, Additional history exists Adult Wellness Visit 09/05/2024 09/06/2023, 08/31/19 23 Depression Screening 09/05/2024 09/06/2023, 09/06/19 24 O2 ASSESSMENT COMPLETED IN PAST YEAR FOR COPD 11/27/2024 11/28/2023 TSH 01/15/2025 01/16/2024, 05/12, 04/26/2023, Additional history exists CKD HGB USE SMARTSET 42543 02/05/202502/05, 02/06/2024, 01/16/2024, Additional history exists DTap/Tdap [...] interpreted or resulted by a [facility] or [facility] contracted radiologist. Stacey Hathaway PA-C RADIOLOGY (RAD GENERAL ) Final Result documented in this encounter Care Teams Wardrobe Supervisor Relationship Specialty Start Date End Date Agnes Saavedra DO [address] [place] [address] [place] [address] PCP - General Internal Medicine 04/26/23 documented as of this encounter
--- OUTSIDE RECORDS SUMMARY | 2024-06-14 13:32 | External Medical Summary | Summary of Care ---
Author Name Unknown Organization [facility] Address [address] [place] [address] Phone [phone] Care Team Providers Care Equipment Or Machinery Cleaner Name Role Phone Merle Puga Primary Care Provider Reason for Visit * Reason Comments eRx-Medication Refill Encounter Details Date Type Department Care Team (Late st Contact Info) Description 04/05/2024 Refill Family Medicine [address] [phone] Geo Mitchell MD [address] [place] [address] [place] [address] Gastroesophageal reflux disease without esophagitis Allergies Active Allergy Reactions Criticality Noted Date Comments Amoxicillin 04/13/2022 Severe itching Sulfamethoxazole-Trimethopri m 06/26/2018 Affected Kidneys Cephalexin 07/22/2020 Redness and flushing, diarrhea documented as of this encounter (statuses as of 04/05/2024) Medications CYANOCOBALAMIN (VITAMIN B-12) 100 MCG Tablet [...] (HCC),Atrial fibrillation, unspecified type (HCC),Anticoagul ation 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,[facility] current use of anticoagulant therapy,Atrial fibrillation (HCC) [...] left knee 100 g 5 024 Active Vitamin D3 1.25 MG (70455 UT) Oral Capsule Take 1 Capsule by [...] EVERY DAY 90 Capsule 1 024 Active Omeprazole 40 MG Oral Capsule Delayed Release (PriLOSEC)Indica tions:Gastroesop hageal reflux disease without esophagitis TAKE ONE CAPSULE BY MOUTH TWICE DAILY 180 Capsule 1 024 Active Omeprazole 40 MG Oral Capsule Delayed Release (PriLOSEC)Indica tions:Gastroesop hageal reflux disease without esophagitis TAKE ONE CAPSULE BY MOUTH TWICE DAILY 180 Capsule 1 024 2023 Discontinued documented as of this encounter (statuses as of 04/05/2024) Active Problems Problem Noted Date Diagnosed Date [...] rinse after steroid. 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 Not on file Not on file documented as of this encounter Miscellaneous Notes * Telephone Encounter - Aram Hardwick RPh - 04/05/2024 8:49 PM EST Signed Prescriptions: Disp Refills Omeprazole 40 MG Oral Capsule Delayed Rele*180 Ca*1 Sig: TAKE ONE CAPSULE BY MOUTH TWICE DAILYAuthorizing Provider: MERLE PUGA User: ARAM HARDWICK documented in this encounter Plan of Treatment Upcoming Encounters Date Type Department Care Team (Late st Contact Info) Description 05/08/2024 10:30 AM EST Anticoagulation Pharmacy, [address] [place] [address] [place] [address] 07/16/2024 8:50 AM EDT Office Visit Family Medicine [address] [place] [phone] Merle Puga, [address] [place] [address] 09/09/2024 10:30 AM EDT Nurse Only Ancillary [address] [place] [address] [place], Nurse Annual [address] [place] [address] 09/24/2024 2:00 PM EDT Office Visit Cardiology [address] [place] [address] Price De PA-C [address] [place] [address] 03/19/2025 2:20 PM EST Office Visit Dermatology [address] [place] [address] Stacey Hathaway PA-C [address] [place] [address] [place] [address] Scheduled Procedures Name Priority Associated Diagnoses Date/Ti me COLONOSCOPY FLEXIBLE PROXIMA L DIAGNOSTIC Recall Encounter for screening colonoscopy Health Maintenance Due Date Last Done Comments DXA Scan 1945 Alpha-1 Antitrypsin 1965 Pneumococcal Vaccine: 50+ Years (1 of 2 - PCV) 1966 Zoster Vaccines (1 of 2) 1997 COVID-19 Vaccine ( season) 2023 Influenza Vaccine (FLU shot) (#1) 2023 CKD PHOS USE SMARTSET 66810 12/31/202312/10, 06/10/2019, 04/12/2018 Albumin/Creatinine Ratio 04/26/2024 024, 05/26/2022, 04/26/2021 GFR 08/06/2024 02/06/2024, 11/2023, 11/28/2023, Additional history exists Adult Wellness Visit 09/05/2024 09/06/2023, 08/31/19 23 Depression Screening 09/05/2024 09/06/2023, 09/06/19 24 O2 ASSESSMENT COMPLETED IN PAST YEAR FOR COPD 11/27/2024 11/28/2023 TSH 01/15/2025 01/16/2024, 05/12, 04/26/2023, Additional history exists CKD HGB USE SMARTSET 86381 02/05/202502/05, 02/06/2024, 01/16/2024, Additional history exists DTap/Tdap [...] as of this encounter Visit Diagnoses Diagnosis Gastroesophageal reflux disease without esophagitis Esophageal reflux documented in this encounter Care Teams Equipment Or Machinery Cleaner Relationship Specialty Start Date End Date Merle Puga DO [address] [place] [address] [place] [phone] PCP - General Internal Medicine 04/26/23 documented as of this encounter
--- OUTSIDE RECORDS SUMMARY | 2024-06-14 13:32 | External Medical Summary | Summary of Care ---
Author Name Unknown Organization [facility] Address [address] [facility] [place] [address] Phone [phone] Care Team Providers Care Motor Vehicle Escort Driver Name Role Phone Agnes Saavedra Primary Care Provider Reason for Visit * Reason Comments eRx-Medication Refill Encounter Details Date Type Department Care Team (Late st Contact Info) Description 04/05/2024 Refill [address] [place] [address] Inocencia Jeffers PA-C [address] [place] [address] PAF (paroxysmal atrial fibrillation) ([facility]) Allergies Active Allergy Reactions Criticality Noted Date Comments Amoxicillin 04/13/2022 Severe itching Sulfamethoxazole-Trimethopri m 06/26/2018 Affected Kidneys Cephalexin 07/22/2020 Redness and flushing, diarrhea documented as of this encounter (statuses as of 04/06/2024) Medications CYANOCOBALAMIN (VITAMIN B-12) 100 MCG Tablet Take 1 Tablet by mouth in the morning. Active Vitamin C 500 MG Oral Tablet (Ascorbic Acid) Take 1 Tablet by mouth every other day. Active oxygen IN GASIndications:C hronic diastolic congestive heart failure (HCC),COPD, group B, by GOLD 2017 classification ([facility]) Use as directed 2 L/min(Oxygen) at bedtime as needed for Shortness of Breath. 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 48 g 1 Active Famotidine 20 MG Oral Tablet (Pepcid)Indicati ons:GERD (gastroesophagea l reflux disease) Take 1 Tablet by mouth in the morning. 90 Tablet 1 024 Active Clindamycin Phosphate 1 % External GelIndications:F olliculitis Apply to each open areas on body and scalp 2x daily (or more when itchy instead of rubbing/picking/s cratching at areas) 60 g 3 Active Ketoconazole 2 % External Shampoo (Nizoral)Indicat [...] TWICE DAILY 180 Capsule 1 024 Active Metoprolol Succinate ER 25 MG Oral Tablet Extended Release 24 Hour (toPROL XL)Indications:P AF (paroxysmal atrial fibrillation) (HCC) TAKE ONE TABLET BY MOUTH EVERY DAY 90 Tablet 3 023 2023 Discontinued documented as of this encounter (statuses as of 04/06/2024) Active Problems Problem Noted Date Diagnosed Date [...] rinse after steroid. 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 Not on file Not on file documented as of this encounter Miscellaneous Notes * Telephone Encounter - Jb Arroyo RPh - 04/06/2024 9:56 AM ESTSigned Prescriptions: Disp Refills Metoprolol Succinate ER 25 MG Oral Tablet *90 Tab*3 Sig: TAKE ONE TABLET BY MOUTH EVERY DAYAuthorizing Provider: INOCENCIA JEFFERS User: JB ARROYO------- documented in this encounter Plan of Treatment Upcoming Encounters Date Type Department Care Team (Late st Contact Info) Description 05/08/2024 10:30 AM EST Anticoagulation Pharmacy, [address] [place] [address] [place] [address] 07/16/2024 8:50 AM EDT Office Visit Family Medicine [address] [place] [phone] Agnes Saavedra, [address] [place] [address] 09/09/2024 10:30 AM EDT Nurse Only Ancillary [address] [place] [phone] [place], Nurse Annual [address] [place] [address] 09/24/2024 2:00 PM EDT Office Visit Cardiology [address] [place] [address] Inocencia Jeffers PA-C [address] [place] [address] 03/19/2025 2:20 PM EST Office Visit Dermatology [address] [place] [address] Stacey Hathaway PA-C [address] [place] [address] [place] [address] Scheduled Procedures Name Priority Associated Diagnoses Date/Ti [...] shot) (#1) 2023 CKD PHOS USE SMARTSET 41751 12/31/202312/10, 06/10/2019, 04/12/2018 Albumin/Creatinine Ratio 04/26/2024 024, 05/26/2022, 04/26/2021 GFR 08/06/2024 02/06/2024, 11/2023, 11/28/2023, Additional history exists Adult Wellness Visit 09/05/2024 09/06/2023, 08/31/19 23 Depression Screening 09/05/2024 09/06/2023, 09/06/19 24 O2 ASSESSMENT COMPLETED IN PAST YEAR FOR COPD 11/27/2024 11/28/2023 TSH 01/15/2025 01/16/2024, 05/12, 04/26/2023, Additional history exists CKD HGB USE SMARTSET 97849 02/05/202502/05, 02/06/2024, 01/16/2024, Additional history exists DTap/Tdap [...] as of this encounter Visit Diagnoses Diagnosis PAF (paroxysmal atrial fibrillation) (HCC) Atrial fibrillation documented in this encounter Care Teams Motor Vehicle Escort Driver Relationship Specialty Start Date End Date Agnes Saavedra DO [address] [place] [address] [place] [phone] PCP - General Internal Medicine 04/26/23 documented as of this encounter
--- OUTSIDE RECORDS SUMMARY | 2024-06-14 13:32 | External Medical Summary | Summary of Care ---
Author Name Unknown Organization [facility] Address [address] [place] [address] Phone [phone] Care Team Providers Care Hvac Controls Technician Name Role Phone Agnes Saavedra DO Primary Care Provider Reason for Visit * Reason Onset Date Comments Medication Refill 04/15/2024 Encounter Details Date Type Department Care Team (Late st Contact Info) Description 04/15/2024 Refill Family Medicine [address] [place] [phone] Agnes Saavedra DO [address] [place] [address] [place] [address] Allergies Active Allergy Reactions Criticality Noted Date Comments Amoxicillin 04/13/2022 Severe itching Sulfamethoxazole-Trimethopri m 06/26/2018 Affected Kidneys Cephalexin 07/22/2020 Redness and flushing, diarrhea documented as of this encounter (statuses as of 04/15/2024) Medications CYANOCOBALAMIN (VITAMIN B-12) 100 MCG Tablet [...] (HCC),Atrial fibrillation, unspecified type (HCC),Anticoagula tion 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,[facility]PC current use of anticoagulant therapy,Atrial fibrillation (HCC) [...] ns:COPD, group B, by GOLD 2017 classification ([facility]) INHALE 2 PUFFS EVERY 4 [...] ns:COPD, group B, by GOLD 2017 classification ([facility]) INHALE ONE PUFF BY MOUTH [...] mouth in the morning. 04/15/19 25 Active Vitamin D3 1.25 MG (50022 UT) Oral Capsule Take 1 Capsule by mouth once a week. 12 Capsule 01/17/20 24 2024 Disconti nued(Pat ient preferen ce/disco ntinuati on) documented as of this encounter (statuses as of 04/15/2024) Active Problems Problem Noted Date Diagnosed Date [...] rinse after steroid. 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 Start OTC vitamin D, 2000 units daily. Notify pt. * Telephone Encounter - Melani Santiago CMA - 04/15/2024 8:43 AM ESTPending Prescriptions: Disp Refills Vitamin D3 1.25 MG (59169 UT) Oral Capsule 12 Cap*0 Sig: Take 1 Capsule by mouth once a week. * Telephone Encounter - Karen Pina OSA - 04/15/2024 8:36 AM EST Did you pend patient's preferred pharmacy and medication before forwarding?yes Pharmacy: [id number] [address] [facility] Pending Prescriptions: Disp Refills Vitamin D3 1.25 MG (59916 UT) Oral [id number] Cap*0 Sig: Take 1 Capsule by mouth once a week. Last Visit: 11/28/2023 (in office), 04/01/2021 (telemedicine) Next Visit: 07/16/2024 If no future appointments scheduled, and last appointment is greater than a year ago, please schedule patient for a follow-up appointment Last date the medication was ordered: 01.17.24 Is this request for a controlled substance?No [...] Description 05/08/2024 10:30 AM EST Anticoagulation Pharmacy, [address] [place] [address] [place] [address] 07/16/2024 8:50 AM EDT Office Visit Family Medicine [address] [place] [phone] Agnes Saavedra [address] [place] [address] 09/09/2024 10:30 AM EDT Nurse Only Ancillary [address] [place] [address] [place], Nurse Annual [address] [place] [address] 09/24/2024 2:00 PM EDT Office Visit Cardiology [address] [place] [address] Price De PA-C [address] [place] [address] 03/19/2025 2:20 PM EST Office Visit Dermatology [address] [place] [address] Stacey Hathaway PA-C [address] [place] [address] [place] [address] Scheduled Procedures Name Priority Associated Diagnoses Date/Ti me COLONOSCOPY FLEXIBLE PROXIMA L DIAGNOSTIC Recall Encounter for screening colonoscopy Health Maintenance Due Date Last Done Comments DXA Scan 1945 Alpha-1 Antitrypsin 1965 Pneumococcal Vaccine: 50+ Years (1 of 2 - PCV) 1966 Zoster Vaccines (1 of 2) 1997 COVID-19 Vaccine (1 - season) 2023 Influenza Vaccine (FLU shot) (#1) 2023 CKD PHOS USE SMARTSET 42366 12/31/202312/10, 06/10/2019, 04/12/2018 Albumin/Creatinine Ratio 04/26/2024 024, 05/26/2022, 04/26/2021 GFR 08/06/2024 02/06/2024, 1011/2023, 11/28/2023, Additional history exists Adult Wellness Visit 09/05/2024 09/06/2023, 08/31/19 23 Depression Screening 09/05/2024 09/06/2023, 09/06/19 24 O2 ASSESSMENT COMPLETED IN PAST YEAR FOR COPD 11/27/2024 11/28/2023 TSH 01/15/2025 01/16/2024, 05/12, 04/26/2023, Additional history exists CKD HGB USE SMARTSET 29791 02/05/202502/05, 02/06/2024, 01/16/2024, Additional history exists DTap/Tdap [...] filedocumented as of this encounter Care Teams Hvac Controls Technician Relationship Specialty Start Date End Date Agnes Saavedra DO [address] [place] [address] [place] [address] PCP - General Internal Medicine 04/26/23 documented as of this encounter
--- OUTSIDE RECORDS SUMMARY | 2024-06-14 13:32 | External Medical Summary | Summary of Care ---
Author Name Unknown Organization [facility] Address [address] [place] [address] Phone [phone] Care Team Providers Care Glory Hole Tender Name Role Phone Agnes Saavedra DO Primary Care Provider Reason for Visit * Reason Onset Date Comments Medication Refill 04/15/2024 Encounter Details Date Type Department Care Team (Late st Contact Info) Description 04/15/2024 Refill Family Medicine [address] [place] [phone] Agnes Saavedra DO [address] [place] [address] [place] [address] Allergies Active Allergy Reactions Criticality Noted Date [...] ns:COPD, group B, by GOLD 2017 classification ([facility]) INHALE 2 PUFFS EVERY 4 HOURS [...] ns:COPD, group B, by GOLD 2017 classification ([facility]) INHALE ONE PUFF BY MOUTH IN [...] 04/15/19 25 Active Vitamin D3 1.25 MG (03380 UT) Oral Capsule Take 1 Capsule by [...] rinse after steroid. 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 * Telephone Encounter - Karen Pina OSA - 04/15/2024 8:36 AM EST Did you pend patient's preferred pharmacy and medication before forwarding?yes Pharmacy: [id number] [address] [facility] Pending Prescriptions: Disp Refills Vitamin D3 1.25 MG (27683 UT) Oral [id number] Cap*0 Sig: Take 1 Capsule by mouth [...] Description 05/08/2024 10:30 AM EST Anticoagulation Pharmacy, [address] [place] [address] [place] [address] 07/16/2024 8:50 AM EDT Office Visit Family Medicine [address] [place] [phone] Agnes Saavedra [address] [place] [address] 09/09/2024 10:30 AM EDT Nurse Only Ancillary [address] [place] [address] [place], Nurse Annual [address] [place] [address] 09/24/2024 2:00 PM EDT Office Visit Cardiology [address] [place] [address] Price De PA-C [address] [place] [address] 03/19/2025 2:20 PM EST Office Visit Dermatology [address] [place] [address] Stacey Hathaway PA-C [address] [place] [address] [place] [address] Scheduled Procedures Name Priority Associated Diagnoses Date/Ti me COLONOSCOPY FLEXIBLE PROXIMA L DIAGNOSTIC Recall Encounter for screening colonoscopy Health Maintenance Due Date Last Done Comments DXA Scan 1945 Alpha-1 Antitrypsin 1965 Pneumococcal Vaccine: 50+ Years (1 of 2 - PCV) 1966 Zoster Vaccines (1 of 2) 1997 COVID-19 Vaccine (1 - season) 2023 Influenza Vaccine (FLU shot) (#1) 2023 CKD PHOS USE SMARTSET 56394 12/31/202312/10, 06/10/2019, 04/12/2018 Albumin/Creatinine Ratio 04/26/2024 024, 05/26/2022, 04/26/2021 GFR 08/06/2024 02/06/2024, 1011/2023, 11/28/2023, Additional history exists Adult Wellness Visit 09/05/2024 09/06/2023, 08/31/19 23 Depression Screening 09/05/2024 09/06/2023, 09/06/19 24 O2 ASSESSMENT COMPLETED IN PAST YEAR FOR COPD 11/27/2024 11/28/2023 TSH 01/15/2025 01/16/2024, 05/12, 04/26/2023, Additional history exists CKD HGB USE SMARTSET 53277 02/05/202502/05, 02/06/2024, 01/16/2024, Additional history exists DTap/Tdap [...] filedocumented as of this encounter Care Teams Glory Hole Tender Relationship Specialty Start Date End Date Agnes Saavedra DO [address] [place] [address] [place] [address] PCP - General Internal Medicine 04/26/23 documented as of this encounter
--- OUTSIDE RECORDS SUMMARY | 2024-06-14 13:32 | External Medical Summary | Summary of Care ---
Author Name Unknown Organization [facility] Address [address] [place] [address] Phone [phone] Care Team Providers Care Cloth Weaver Name Role Phone Agnes Saavedra DO Primary Care Provider Reason for Visit * Reason Onset Date Comments Test Results 01/17/2024 Encounter Details Date Type Department Care Team (Late st Contact Info) Description 01/17/2024 Telephone Cardiology, [facility] [address] [facility] [place] [address] Price De PA-C [address] [place] [address] Test Results Allergies Active Allergy Reactions Criticality Noted Date Comments Amoxicillin 04/13/2022 Severe itching Sulfamethoxazole-Trimethopri m 06/26/2018 Affected Kidneys Cephalexin 07/22/2020 Redness and flushing, diarrhea documented as of this encounter (statuses as of 04/17/2024) Medications CYANOCOBALAMIN (VITAMIN B-12) 100 MCG Tablet [...] bedtime as needed and directed 1 Each 04/13/2 022 Active Additional Information Patient taking differently: [...] (HCC),Atrial fibrillation, unspecified type (HCC),Anticoagul ation 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,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 90 Tablet 3 024 Active Ketoconazole 2 % External Shampoo (Nizoral)Indicat ions:Seborrheic dermatitis of scalp Massage into scalp and rinse out after 5 minutes--do 3 times weekly Strength: 2 % 120 mL 3 022 2023 Discontinued( Refill) Clindamycin Phosphate 1 % External GelIndications:H /O folliculitis Apply to each open areas on body and scalp 2x daily (or more when itchy instead of rubbing/picking/s cratching at areas) 60 g 3 022 2023 Discontinued( Refill) Triamcinolone Acetonide 0.1 % External Ointment (Aristocort)Chel cations:Pruritus Apply to open and itchy areas instead of scratching at them (2x daily or more if needed) 454 g 022 2023 Discontinued( Refill) Metoprolol Succinate ER 25 MG Oral Tablet Extended Release 24 Hour (toPROL XL)Indications:P AF (paroxysmal atrial fibrillation) ([facility]) TAKE ONE TABLET BY MOUTH EVERY DAY 90 Tablet 3 023 2023 Discontinued Levothyroxine Sodium 75 MCG Oral Tablet (Levoxyl)Indicat ions:Acquired hypothyroidism take 1 tablet in the morning at least 30 minutes before breakfast or other medications. 90 Tablet 3 024 2023 Discontinued Anoro Ellipta 62.5-25 MCG/ACT Inhalation Aerosol Powder Breath Activated (umeclidinium-vi lanterol)Indicat ions:COPD, group B, by GOLD 2017 classification ([facility]) INHALE ONE PUFF BY MOUTH IN THE MORNING 180 Each 1 024 2023 Discontinued( Refill) Potassium Chloride Bhavana ER 10 MEQ Oral Tablet Extended Release Take one tablet by mouth on days taking 40 mg of furosemide and take two tablets by mouth on days taking 60 mg of furosemide. 180 Tablet 1 024 2023 Discontinued( Refill) Fluticasone Propionate 50 MCG/ACT Nasal Suspension (Flonase)Indicat ions:Seasonal allergies 2 sprays each nostril daily 48 g 1 024 2023 Discontinued( Refill) Famotidine 20 MG Oral Tablet (Pepcid)Indicati ons:GERD (gastroesophagea l reflux disease) TAKE ONE TABLET BY MOUTH EVERY DAY 90 Tablet 1 024 2023 Discontinued( Refill) Sertraline HCl 50 MG Oral Tablet (Zoloft) Take 1 Tablet by mouth in the morning. 30 Tablet 5 024 2023 Discontinued Omeprazole 40 MG Oral Capsule Delayed Release (PriLOSEC)Indica tions:Gastroesop hageal reflux disease without esophagitis TAKE ONE CAPSULE BY MOUTH TWICE DAILY 180 Capsule 1 024 2023 Discontinued Ramipril 2.5 MG Oral Capsule (Altace)Indicati ons:Stage 3a chronic kidney disease (HCC) TAKE ONE CAPSULE BY MOUTH EVERY DAY 90 Capsule 1 024 2023 Discontinued Vitamin D3 1.25 MG (86180 UT) Oral Capsule Take 1 Capsule by mouth once a week. 12 Capsule 024 2024 Discontinued( Patient preference/di scontinuation ) documented as of this encounter (statuses as of 04/17/2024) Active Problems Problem Noted Date Diagnosed Date [...] rinse after steroid. Test performed by Trudy CAMERA PROTOTYPING ENGINEER CPFT Diastolic dysfunction 08/01/2017 DIVERTICULOSIS OF COLON Family history of colon cancer Gastroesophageal reflux disease without esophagi tis GENERAL OSTEOARTHROSIS Sciatica Carpal tunnel syndrome documented as of this encounter (statuses as of 04/17/2024) Resolved Problems Problem Noted Date Diagnosed Date [...] as of this encounter (statuses as of 04/17/2024) Immunizations Name Administration Dates Next Due TDAP [...] No 09/06/2023 Does the household have a [facility] source [facility] income? 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 Informed of Price's message. Patient verbalized understanding. Labs ordered. Prescription pended. ----- Message from Price De sent at 01/17/2024 3:33 PM EDT ----- Potassium is high normal. Decrease potassium chloride to 10 mEq daily Recurrent mildly elevated white blood cell count. Patient seemingly well when evaluated on January 16, 2024. Check CMP and CBC with differential in 3 weeks documented in this encounter Plan of Treatment Upcoming Encounters Date Type Department Care Team (Late st Contact Info) Description 05/08/2024 10:30 AM EST Anticoagulation Pharmacy, [address] [place] [address] [place] [address] 07/16/2024 8:50 AM EDT Office Visit Family Medicine [address] [place] [phone] Agnes Saavedra [address] [place] [address] 09/09/2024 10:30 AM EDT Nurse Only Ancillary [address] [place] [address] [place], Nurse [address] [place] [address] 09/24/2024 2:00 PM EDT Office Visit Cardiology [address] [place] [address] Price De PA-C [address] [place] [address] 03/19/2025 2:20 PM EST Office Visit Dermatology [address] [place] [address] Stacey Hathaway PA-C [address] [place] [address] [place] [address] Scheduled Procedures Name Priority Associated Diagnoses Date/Ti me COLONOSCOPY FLEXIBLE PROXIMA L DIAGNOSTIC Recall Encounter for screening colonoscopy Health Maintenance Due Date Last Done Comments DXA Scan 1945 Alpha-1 Antitrypsin 1965 Pneumococcal Vaccine: 50+ Years (1 of 2 - PCV) 1966 Zoster Vaccines (1 of 2) 1997 COVID-19 Vaccine (1 - season) 2023 Influenza Vaccine (FLU shot) (#1) 2023 CKD PHOS USE SMARTSET 04473 12/31/202312/10, 06/10/2019, 04/12/2018 Albumin/Creatinine Ratio 04/26/2024 024, 05/26/2022, 04/26/2021 GFR 08/06/2024 02/06/2024, 11/2023, 11/28/2023, Additional history exists Adult Wellness Visit 09/05/2024 09/06/2023, 08/31/19 23 Depression Screening 09/05/2024 09/06/2023, 09/06/19 24 O2 ASSESSMENT COMPLETED IN PAST YEAR FOR COPD 11/27/2024 11/28/2023 TSH 01/15/2025 01/16/2024, 05/12, 04/26/2023, Additional history exists CKD HGB USE SMARTSET 78116 02/05/202502/05, 02/06/2024, 01/16/2024, Additional history exists DTap/Tdap [...] Not on filedocumented as of this encounter Results * (ABNORMAL) COMPREHENSIVE METABOLIC PANEL (02/06/2024 11:49 AM EDT) BUN 23(H) 6 - 20 mg/dL 02/07/2024 1:28 AM EDT [facility] CREATININE 1.2(H) 0.5 - 1.0 mg/dL 02/07/2024 1:28 AM EDT [facility] EGFR 47(L) >=60 mL/min 02/07/2024 1:28 AM EDT [facility] Comment:eGFR is calculated b ased on the CKD-EPI 2020 equation. SODIUM 139 135 - 146 mmol/L 02/07/2024 1:28 AM EDT [facility] POTASSIUM 4.8 3.5 - 5.1 mmol/L 02/07/2024 1:28 AM EDT [facility] CHLORIDE 102 98 - 107 mmol/L 02/07/2024 1:28 AM EDT [facility] CO2 24 22 - 32 mmol/L 02/07/2024 1:28 AM EDT [facility] ANION GAP 13 7 - 15 mmol/L 02/07/2024 1:28 AM EDT [facility] GLUCOSE 103 70 - 120 mg/dL 02/07/2024 1:28 AM EDT [facility] Albumin 3.9 3.8 - 5.0 g/dL 02/07/2024 1:28 AM EDT [facility] AST 40(H) 10 - 35 U/L 02/07/2024 1:28 AM EDT [facility] Alkaline Phosphatase 191(H) 35 - 130 U/L 02/07/2024 1:28 AM EDT [facility] Bilirubin, Total 0.4 <=1.2 mg/dL 02/07/2024 1:28 AM EDT [facility] CALCIUM 9.7 8.4 - 10.2 mg/dL 02/07/2024 1:28 AM EDT [facility] Protein 6.7 6.0 - 8.3 g/dL 02/07/2024 1:28 AM EDT [facility] ALT 34 10 - 35 U/L 02/07/2024 1:28 AM EDT [facility] Blood Venous blood specimen / Unknown Venipuncture / Unknown 02/06/2024 11:49 AM EDT 02/06/2024 11:50 AM EDT Price De PA-C LAB BLOOD ORDERABLES Final Result [facility]ATORY [facility] [address] [facility] [place] [address] documented in this encounter Visit Diagnoses Diagnosis Elevated WBC count- Primary Leukocytosis, unspecified Encounter for monitoring diuretic therapy Encounter for therapeutic drug monitoring documented in this encounter Care Teams Cloth Weaver Relationship Specialty Start Date End Date Agnes Saavedra DO [address] [place] [address] [place] [phone] PCP - General Internal Medicine 04/26/23 documented as of this encounter
--- OUTSIDE RECORDS SUMMARY | 2024-06-14 13:33 | External Medical Summary | Summary of Care ---
Author Name Unknown Organization [facility] Address [address] [place] [address] Phone [phone] Care Team Providers Care Trade Analyst Name Role Phone SaavedraAgnes matthew Primary Care Provider Reason for Visit * Reason Comments Dosage Adjustment In Person (Anticoag Cl inic) Encounter Details Date Type Department Care Team (Latest Contact Info) Description 02/13/2024 9:40 AM EST Anticoagulation Pharmacy, [address] [place] [address] [place] [address] Anticoagulation 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*; Paroxysmal atrial fibrillation (HCC) Allergies Active Allergy Reactions Criticality Noted Date Comments Amoxicillin 04/13/2022 Severe itching Sulfamethoxazole-Trimethopri m 06/26/2018 Affected Kidneys Cephalexin 07/22/2020 Redness and flushing, diarrhea documented as of this encounter (statuses as of 02/13/2024) Medications Medication Sig Dispensed Refills Start Date End Date Status CYANOCOBALAMIN (VITAMIN B-12) 100 MCG Tablet Take 1 Tablet by mouth in the morning. Active Vitamin C 500 MG Oral Tablet (Ascorbic Acid) Take 1 Tablet by mouth every other day. Active oxygen IN GASIndications:Iap Displays Analyst anabelle diastolic congestive heart failure (HCC),COPD, group B, by GOLD 2017 classification ([facility]) Use as directed 2 L/min(Oxygen) at bedtime as needed for Shortness of Breath. Use at bedtime as needed and directed 1 Each 2 Active Additional Information Patient taking differently: 4 L/min(Oxygen)Nasal cannula HS PRN, Shortness of Breath, Use at bedtime as needed and directed, Reported on 09/06/2023 Ketoconazole 2 % External Shampoo (Nizoral)Indication s:Seborrheic dermatitis of scalp Massage into scalp and rinse out after 5 minutes--do 3 times weekly Strength: 2 % 120 mL 3 2 Active Clindamycin Phosphate 1 % External GelIndications:H/O folliculitis Apply to each open areas on body and scalp 2x daily (or more when itchy instead of rubbing/picking/scra tching at areas) 60 g 3 2 Active Triamcinolone Acetonide 0.1 % External Ointment (Aristocort)Indicat ions:Pruritus Apply to open and itchy areas instead of scratching at them (2x daily or more if needed) 454 g 2 Active Metoprolol Succinate ER 25 MG Oral Tablet Extended Release 24 Hour (toPROL XL)Indications:PAF (paroxysmal atrial fibrillation) (HCC) TAKE ONE TABLET BY MOUTH EVERY DAY 90 Tablet 3 3 Active Amiodarone HCl 200 MG Oral Tablet (Cordarone)Indicati ons:Paroxysmal atrial fibrillation (HCC) TAKE ONE TABLET BY MOUTH EVERY DAY 90 Tablet 3 4 Active Furosemide 20 MG Oral Tablet (Lasix)Indications: Bilateral lower extremity edema Take 2 Tablets by mouth once a day on Monday, , Monday, and Monday only AND 3 Tablets once a day on Monday, Monday, and Monday only. 4 Active Levothyroxine Sodium 75 MCG Oral Tablet (Levoxyl)Indication s:Acquired hypothyroidism take 1 tablet in the morning at least 30 minutes before breakfast or other medications. 90 Tablet 3 4 Active Warfarin Sodium 2 MG Oral Tablet (Coumadin)Indicatio ns:Paroxysmal atrial fibrillation (HCC),Atrial fibrillation, unspecified type (HCC),Anticoagulati on 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,senior living current use of anticoagulant therapy,Atrial fibrillation (HCC) Take 1-2 tablet by mouth daily as directed by anticoagulation clinic 90 Tablet 1 4 Active Fluticasone Propionate 50 MCG/ACT Nasal Suspension (Flonase)Indication s:Seasonal allergies 2 sprays each nostril daily 48 g 1 4 Active Famotidine 20 MG Oral Tablet (Pepcid)Indications :GERD (gastroesophageal reflux disease) TAKE ONE TABLET BY MOUTH EVERY DAY 90 Tablet 1 4 Active Sertraline HCl 50 MG Oral Tablet (Zoloft) Take 1 Tablet by mouth in the morning. 30 Tablet 5 4 Active Omeprazole 40 MG Oral Capsule Delayed Release (PriLOSEC)Indicatio ns:Gastroesophageal reflux disease without esophagitis TAKE ONE CAPSULE BY MOUTH TWICE DAILY 180 Capsule 1 4 Active Ramipril 2.5 MG Oral Capsule (Altace)Indications :Stage 3a chronic kidney disease (HCC) TAKE ONE CAPSULE BY MOUTH EVERY DAY 90 Capsule 1 4 Active Gabapentin 100 MG Oral Capsule (Neurontin)Indicati ons:Post herpetic neuralgia take 1 capsule in the morning 90 Capsule 1 4 Active Gabapentin 300 MG Oral Capsule (Neurontin)Indicati ons:Post herpetic neuralgia Take 1 Capsule by mouth at bedtime. 90 Capsule 1 4 Active Atorvastatin Calcium 10 MG Oral Tablet (Lipitor)Indication s:Dyslipidemia TAKE ONE TABLET BY MOUTH IN THE MORNING 90 Tablet 3 4 Active Albuterol Sulfate HFA 108 (90 Base) MCG/ACT Inhalation Aerosol SolutionIndications :COPD, group B, by GOLD 2017 classification ([facility]) INHALE 2 PUFFS EVERY 4 HOURS NEEDED SHORTNESS OF BREATH OR WHEEZING. 18 g 3 4 Active Diclofenac Sodium 1 % External Gel (Voltaren) Apply topically to affected area 4 times a day as needed for Pain. Apply to left knee 100 g 5 4 Active Vitamin D3 1.25 MG (62520 UT) Oral Capsule Take 1 Capsule by mouth once a week. 12 Capsule 4 04/16/19 25 Active Potassium Chloride Bhavana ER 10 MEQ Oral Tablet Extended Release Take 1 Tablet by mouth in the morning. 90 Tablet 3 4 Active Anoro Ellipta 62.5-25 MCG/ACT Inhalation Aerosol Powder Breath Activated (umeclidinium-vilan terol)Indications:C OPD, group B, by GOLD 2017 classification ([facility]) INHALE ONE PUFF BY MOUTH IN THE MORNING 180 Each 1 4 Active documented as of this encounter (statuses as of 02/13/2024) Active Problems Problem Noted Date Diagnosed Date [...] Per COPD GOLD Classification Acquired hypothyroidism 10/15/2018 Overview: TSH 17 Anticoagulant long-term use 06/21/2018 Chronic diastolic congestive heart failure 01/04 Presence of cardiac pacemaker 10/13/2017 Tachy-silvestre syndrome 10/10/2017 Pulmonary emphysema 09/11/2017 Overview: In Check dial performed to assess inhaler technique: 04/17/19. Name of inhaler Anoro Elliptical Pass: Yes at 35L/min. Encouraged to take deep breath and rinse after steroid. Test performed by Trudy GANG TAILER CPFT Diastolic dysfunction 08/01/2017 DIVERTICULOSIS OF COLON Family history of colon cancer Gastroesophageal reflux disease without esophagi tis GENERAL OSTEOARTHROSIS Sciatica Carpal tunnel syndrome documented as of this encounter (statuses as of 02/13/2024) Resolved Problems Problem Noted Date Diagnosed Date Resolved Date Atrial fibrillation, unspecified type 01/18/2022 04/26/2023 CKD (chronic kidney disease), stage II 04/08/2021 03/24/2022 Overview: EGFR 69 Kidney disease, chronic, sta ge III (GFR 30-59 ml/min) 01/04/2018 11/23/2020 Prediabetes 07/18/2017 12/24/2020 Overview: Per Prediabetes protocol #1 Atrial fibrillation 07/13/2017 04/26/19 24 BENIGN NEOPLASM SKIN NOS 11/27/2002 BENIGN NEOPLASM LG BOWEL documented as of this encounter (statuses as of 02/13/2024) Immunizations Name Administration Dates Next Due TDAP [...] Answer Date Recorded PHQ Adult Total Score 2 08/30/2022 Hunger Vital Sign Answer Date Recorded Worried About Running Out of Food in the Last Ye ar Never true 08/09/2019 Ran Out of Food in the Last Year Never true 08/09/2019 Sex and Gender Information Value Date Recorded Sex Assigned at Female 08/30/2022 1:19 PM EDT Gender Identity Female 08/30/2022 1:19 PM EDT Sexual Orientation Straight 08/30/2022 1: 19 PM EDT Job Start Date Occupation Industry Not on file Not on file Not on file documented as of this encounter Progress Notes * Elizabeth Macdonald, Former[facility] - 02/13/2024 9:43 AM EST Medication Therapy Disease Management - Anticoagulation Patient: Gali Moreno Iris | : 1945 Subjective Contacts Contact Date/Time Type Contact Phone/Fax 02/06/2024 05:13 AM EDT Vendor (Outgoing) Gali Simmons [phone] 02/10/2024 05:09 AM EDT Vendor (Outgoing) Gali Simmons [phone] 02/12/2024 05:15 AM EST Vendor (Outgoing) Gali Simmons [phone] Patient-Reported Symptoms: Patient Findings Negatives: Signs/symptoms of thrombosis, Signs/symptoms of bleeding, Change in health, Change in alcohol use, Change in activity, Upcoming invasive procedure, Missed doses, Extra doses, Change in medications, Change in diet/appetite, Bruising Objective Current Warfarin Dose As of 02/13/2024 Warfarin maintenance plan: 2 mg (2 mg x 1) every Tue; 1 mg (2 mg x 0.5) all other days INR Result As of 02/13/2024 INR goal: 2.0-3.0 INR used for dosin.4 (02/13/2024) Assessment & Plan Warfarin Plan As of 02/13/2024 Full warfarin instructions: 2 mg every Tue; 1 mg all other days No change documented: Elizabeth Macdonald RPh Next INR check: 03/27/2024 Repeat PT/INR in 6 week(s) Weekly dose: [...] time spent by another provider/QHP. Elizabeth Macdonald RP Clinical Pharmacist 02/13/2024, 9:43 AM documented in this encounter Plan of Treatment Upcoming Encounters Date Type Department Care Team (Late st Contact Info) Description 02/15/2024 10:30 AM EST Cardiac Studies Cardiac Studies [address] [place] [address] 02/16/2024 12:30 PM EST Imaging Radiology [address] [place] [address] 03/11/2024 11:00 AM EST Office Visit Dermatology [address] [place] Stacey Hathaway PA-C [address] [place] [address] [place] [address] 03/27/2024 10:00 AM EST Anticoagulation Pharmacy, [address] [place] [phone] [place] 07/16/2024 8:50 AM EDT Office Visit Family Medicine [address] [place] [phone] Agnes Saavedra, [address] [place] [address] 09/09/2024 10:30 AM EDT Nurse Only Ancillary [address] [place] [address] [place], Nurse Annual Wellness [address] [place] [address] [place] [address] 09/24/2024 2:00 PM EDT Office Visit Cardiology [address] [place] [address] Price De PA-C [address] [place] [address] Scheduled Procedures Name Priority Associated Diagnoses Date/Ti me COLONOSCOPY FLEXIBLE PROXIMA L DIAGNOSTIC Recall Encounter for screening colonoscopy Health Maintenance Due Date Last Done Comments DXA Scan 1945 Pneumococcal Vaccine: 65+ Years (1 of 2 - PCV) 1951 Alpha-1 Antitrypsin 1965 Zoster Vaccines (1 of 2) 1997 COVID-19 Vaccine ( - season) 2023 Influenza Vaccine (FLU shot) (#1) 2023 CKD PHOS USE SMARTSET 66962 12/31/202312/10, 06/10/2019, 04/12/2018 Albumin/Creatinine Ratio 04/26/2024 024, 05/26/2022, 04/26/2021 GFR 08/06/2024 02/06/2024, 10/0 11/2023, 11/28/2023, Additional history exists Adult Wellness Visit 09/05/2024 09/06/2023, 08/31/19 23 Depression Screening 09/05/2024 09/06/2023, 09/06/19 24 O2 ASSESSMENT COMPLETED IN PAST YEAR FOR COPD 11/27/2024 11/28/2023 TSH 01/15/2025 01/16/2024, 02/2 11/2023, 04/26/2023, Additional history exists CKD HGB USE SMARTSET 32301 02/05/202502/05, 02/06/2024, 01/16/2024, Additional history exists DTap/Tdap Vaccines (3 - Td or Tdap) 04/05/2032 04/05/2022, 04/21/2016 Colonoscopy Discontinued 09/24/2015, 09/24/2015 Colorectal Cancer Screening Discontinued Fecal Occult Blood Test Discontinued 12/09/2020, 10/20 Lung Cancer Screening Completed 04/15/2022 Cologuard Discontinued HPV (Gardasil) Vaccine Aged Out [...] Comments INR FINGERSTICK, POINT OF CARE STAT 02/13/2024 9:46 AM EST Paroxysmal atrial fibrillation (HCC) Anticoagulation 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 documented in this encounter Results * INR FINGERSTICK, POINT OF CARE (02/13/2024 9:46 AM EST) Fingerstick INR 2.4 INR 10:23 AM EST [facility] Blood 02/13/2024 9:46 AM EST 02/13/2024 10:23 AM EST Narrative [facility] - 02/13/2024 10:23 AM EST Therapeutic ranges for non-operative patients: Prophylaxsis/treatment of DVT: (Range:2.0-3.0) Treatment of pulmonary embolism:(Range:2.0-3.0) Prevention of systemic embolism from: -tissue heart valves -acute myocardial infarction -valvular heart disease -atrial fibrillation (Range: 2.0-3.0) Mechanical prosthetic valves: (Range: 2.5-3.5) Elizabeth Macdonald [facility] POINT OF CARE TEST DOCKED DEVICE UNSOLICITED RESULTS [facility] [place] [address] [place] [address] documented in this encounter Visit Diagnoses Diagnosis Anticoagulation 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- Primary Encounter for therapeutic drug monitoring Paroxysmal atrial fibrillation (HCC) Atrial fibrillation documented in this encounter Care Teams Trade Analyst Relationship Specialty Start Date End Date Agnes Saavedra DO [address] [place] [address] [place] [address] PCP - General Internal Medicine 04/26/23 documented as of this encounter"
--- OUTSIDE RECORDS SUMMARY | 2024-06-14 13:33 | External Medical Summary | Summary of Care ---
Author Name Unknown Organization [facility] Address [address] [place] [address] Phone [phone] Care Team Providers Care Roller Hand Name Role Phone Jammie Saavedrathony Gonsalez Primary Care Provider Reason for Visit * Reason Comments Outpatient Testing Encounter Details Date Type Department Care Team (Late st Contact Info) Description 02/13/2024 10:10 AM EST Laboratory Laboratory [address] [place] [phone] [address] [place] [address] Dysuria; Leukocytosis, unspecified type Allergies Active Allergy Reactions Criticality Noted Date [...] mouth every other day. Active oxygen IN GASIndications:Teacher Aide anabelle diastolic congestive heart failure (HCC),COPD, group [...] (HCC),Atrial fibrillation, unspecified type (HCC),Anticoagulati on 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,intermodal customer service current use of anticoagulant therapy,Atrial fibrillation (HCC) [...] :COPD, group B, by GOLD 2017 classification ([facility]) INHALE 2 PUFFS EVERY 4 HOURS NEEDED SHORTNESS OF BREATH OR WHEEZING. 18 g 3 4 Active Diclofenac Sodium 1 % External Gel (Voltaren) Apply topically to affected area 4 times a day as needed for Pain. Apply to left knee 100 g 5 4 Active Vitamin D3 1.25 MG (15791 UT) Oral Capsule Take 1 Capsule by mouth once a week. 12 Capsule 4 04/16/19 25 Active Potassium Chloride Bhavana ER 10 MEQ Oral Tablet Extended Release Take 1 Tablet by mouth in the morning. 90 Tablet 3 4 Active Anoro Ellipta 62.5-25 MCG/ACT Inhalation Aerosol Powder Breath Activated (umeclidinium-vilan terol)Indications:C OPD, group B, by GOLD 2017 classification ([facility]) INHALE ONE PUFF BY MOUTH [...] rinse after steroid. Test performed by Trudy ORTHOPEDICS TEACHER CPFT Diastolic dysfunction 08/01/2017 DIVERTICULOSIS OF COLON [...] 10:30 AM EST Cardiac Studies Cardiac Studies [address] [place] [address] 02/16/2024 12:30 PM EST Imaging Radiology [address] [place] [address] 03/11/2024 11:00 AM EST Office Visit Dermatology [address] [place] [address] Stacey Hathaway PA-C [address] [place] [address] [place] [address] 03/27/2024 10:00 AM EST Anticoagulation Pharmacy, [address] [place] [address] [place] [address] 07/16/2024 8:50 AM EDT Office Visit Family Medicine [address] [place] [phone] Agnes Saavedra, [address] [place] [address] 09/09/2024 10:30 AM EDT Nurse Only Ancillary [address] [place] [address] [place], Nurse Annual [address] [place] [address] 09/24/2024 2:00 PM EDT Office Visit Cardiology [address] [place] [address] Price De PA-C [address] [place] [address] Pending Results Name Type Priority Associated Diagnoses Date /Time CRP (INFLAMMATORY MARKER) Lab Routine Leukocytosis, unspecified type 02/13/2024 9:57 AM EST ERYTHROCYTE SEDIMENTATION RATE (ESR) Lab Routine Leukocytosis, unspecified type 02/13/2024 9:57 AM EST Scheduled Procedures Name Priority Associated Diagnoses [...] shot) (#1) 2023 CKD PHOS USE SMARTSET 24816 12/31/202312/10, 06/10/2019, 04/12/2018 Albumin/Creatinine Ratio 04/26/2024 024, 05/26/2022, 04/26/2021 GFR 08/06/2024 02/06/2024, 10/0 11/2023, 11/28/2023, Additional history exists Adult Wellness Visit 09/05/2024 09/06/2023, 08/31/19 23 Depression Screening 09/05/2024 09/06/2023, 09/06/19 24 O2 ASSESSMENT COMPLETED IN PAST YEAR FOR COPD 11/27/2024 11/28/2023 TSH 01/15/2025 01/16/2024, /11/2023, 04/26/2023, Additional history exists CKD HGB USE SMARTSET 02505 02/05/202502/05, 02/06/2024, 01/16/2024, Additional history exists DTap/Tdap [...] as of this encounter Visit Diagnoses Diagnosis Dysuria Leukocytosis, unspecified type documented in this encounter Care Teams Roller Hand Relationship Specialty Start Date End Date Agnes Saavedra DO [address] [place] [address] [place] [address] PCP - General Internal Medicine 04/26/23 documented as of this encounter
--- OUTSIDE RECORDS SUMMARY | 2024-06-14 13:33 | External Medical Summary | Summary of Care ---
Author Name Unknown Organization [facility] Address [address] [place] [address] Phone [phone] Care Team Providers Care Relish Maker Name Role Phone Agnes Saavedra DO Primary Care Provider [phone] Reason for Visit * Reason Onset Date Comments Test Results 02/16/2024 Encounter Details Date Type Department Care Team (Late st Contact Info) Description 02/16/2024 Telephone Cardiology, [facility] [address] [place] [address] Price De PA-C [address] [facility] [place] [address] Test Results Allergies Active Allergy Reactions Criticality Noted Date Comments Amoxicillin 04/13/2022 Severe itching Sulfamethoxazole-Trimethopri m 06/26/2018 Affected Kidneys Cephalexin 07/22/2020 Redness and flushing, diarrhea documented as of this encounter (statuses as of 02/16/2024) Medications CYANOCOBALAMIN (VITAMIN B-12) 100 MCG Tablet [...] Monday, and Monday only. 06/16/19 24 Active Levothyroxine Sodium 75 MCG Oral Tablet (Levoxyl)Indicati ons:Acquired hypothyroidism take 1 tablet in the morning at least 30 minutes before breakfast or other medications. 90 Tablet 3 07/06/19 24 Active Warfarin Sodium 2 MG Oral Tablet (Coumadin)Indicat ions:Paroxysmal atrial fibrillation (HCC),Atrial fibrillation, unspecified type (HCC),Anticoagula tion 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,intermediate current use of anticoagulant therapy,Atrial fibrillation (HCC) Take 1-2 tablet by mouth daily as directed by anticoagulation clinic 90 Tablet 1 07/20/19 24 Active Fluticasone Propionate 50 MCG/ACT Nasal Suspension (Flonase)Indicati ons:Seasonal allergies 2 sprays each nostril daily 48 g 1 09/05/19 24 Active Famotidine 20 MG Oral Tablet (Pepcid)Indicatio ns:GERD (gastroesophageal reflux disease) TAKE ONE TABLET BY MOUTH EVERY DAY 90 Tablet 1 09/05/19 24 Active Sertraline HCl 50 MG Oral Tablet (Zoloft) Take 1 Tablet by mouth in the morning. 30 Tablet 5 09/06/19 24 Active Omeprazole 40 MG Oral Capsule [...] B, by GOLD 2017 classification ([facility]) INHALE 2 PUFFS EVERY 4 HOURS NEEDED SHORTNESS OF BREATH OR WHEEZING. 18 g 3 01/16/20 24 Active Diclofenac Sodium 1 % External Gel (Voltaren) Apply topically to affected area 4 times a day as needed for Pain. Apply to left knee 100 g 5 01/16/20 24 Active Vitamin D3 1.25 MG (71678 UT) Oral Capsule Take 1 Capsule by mouth once a week. 12 Capsule 01/17/20 24 025 Active Potassium Chloride Bhavana ER 10 MEQ Oral Tablet Extended Release Take 1 Tablet by mouth in the morning. 90 Tablet 3 01/17/20 24 Active Anoro Ellipta 62.5-25 MCG/ACT Inhalation Aerosol Powder Breath Activated (umeclidinium-riccardo anterol)Indicatio ns:COPD, group B, by GOLD 2017 classification ([facility]) INHALE ONE PUFF BY MOUTH IN THE MORNING 180 Each 1 02/06/20 24 Active documented as of this encounter (statuses as of 02/16/2024) Active Problems Problem Noted Date Diagnosed Date [...] rinse after steroid. Test performed by Trudy SOFTLINES SUPERVISOR CPFT Diastolic dysfunction 08/01/2017 DIVERTICULOSIS OF COLON Family history of colon cancer Gastroesophageal reflux disease without esophagi tis GENERAL OSTEOARTHROSIS Sciatica Carpal tunnel syndrome documented as of this encounter (statuses as of 02/16/2024) Resolved Problems Problem Noted Date Diagnosed Date [...] as of this encounter (statuses as of 02/16/2024) Immunizations Name Administration Dates Next Due TDAP [...] in the Last Year Never true 08/09/2019 Comments No Sex and Gender Information Value Date Recorded Sex Assigned at Female 08/30/2022 1:19 PM EDT Legal Sex Female 7:15 AM EST Gender Identity Female 08/30/2022 1:19 PM EDT Sexual Orientation Straight 08/30/2022 1: 19 PM EDT 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 Almeida): The LV wall thickness is mildly increased (concentric). The left ventricular wall motion is normal. The qualitative LV ejection fraction is 55-59% (normal). The left atrium is moderately enlarged. The left ventricular diastolic function is moderately abnormal (grade II). Mild aortic valve stenosis is present. Mild tricuspid regurgitation is present. Mild pulmonary hypertension is present. The estimated pulmonary artery systolic pressure is 48 mm Hg. Compared to the report of the previous study dated 08/26/2021, grade 2 diastolic dysfunction is noted. The aortic valve stenosis is relatively unchanged. The pulmonary artery systolic pressure is relatively unchanged. ECHO results are similar to prior. Will be continuing routine surveillance monitoring. Continue as prescribed. Follow-up as scheduled, or as needed. documented in this encounter Plan of Treatment Upcoming Encounters Date Type Department Care Team (Late st Contact Info) Description 02/16/2024 12:30 PM EST Imaging Radiology [address] [place] [address] 03/11/2024 11:00 AM EST Office Visit Dermatology [address] [place] [address] Stacey Hathaway PA-C [address] [place] [address] [place] [address] 03/27/2024 10:00 AM EST Anticoagulation Pharmacy, [address] [place] [address] [place] [address] 07/16/2024 8:50 AM EDT Office Visit Family Medicine [address] [place] [phone] Agnes Saavedra, [address] [place] [address] 09/09/2024 10:30 AM EDT Nurse Only Ancillary [address] [place] [address] [place], Nurse Annual Wellness [address] [place] [address] [place] [address] 09/24/2024 2:00 PM EDT Office Visit Cardiology [address] [place] [address] Price De PA-C [address] [place] [address] Scheduled Procedures Name Priority Associated Diagnoses Date/Ti me COLONOSCOPY FLEXIBLE PROXIMA L DIAGNOSTIC Recall Encounter for screening colonoscopy Health Maintenance Due Date Last Done Comments DXA Scan 1945 Pneumococcal Vaccine: 65+ Years (1 of 2 - PCV) 1951 Alpha-1 Antitrypsin 1965 Zoster Vaccines (1 of 2) 1997 COVID-19 Vaccine (1 - season) 2023 Influenza Vaccine (FLU shot) (#1) 2023 CKD PHOS USE SMARTSET 15331 12/31/202312/10, 06/10/2019, 04/12/2018 Albumin/Creatinine Ratio 04/26/2024 024, 05/26/2022, 04/26/2021 GFR 08/06/2024 02/06/2024, 1011/2023, 11/28/2023, Additional history exists Adult Wellness Visit 09/05/2024 09/06/2023, 08/31/19 23 Depression Screening 09/05/2024 09/06/2023, 09/06/19 24 O2 ASSESSMENT COMPLETED IN PAST YEAR FOR COPD 11/27/2024 11/28/2023 TSH 01/15/2025 01/16/2024, 02/11/2023, 04/26/2023, Additional history exists CKD HGB USE SMARTSET 96727 02/05/202502/05, 02/06/2024, 01/16/2024, Additional history exists DTap/Tdap [...] filedocumented as of this encounter Care Teams Relish Maker Relationship Specialty Start Date End Date Agnes Saavedra DO [address] [place] [address] [place] [phone] PCP - General Internal Medicine 04/26/23 documented as of this encounter
--- OUTSIDE RECORDS SUMMARY | 2024-06-14 13:33 | External Medical Summary | Summary of Care ---
Author Name Unknown Organization [facility] Address [address] [place] [address] Phone [phone] Care Team Providers Care Food Expeditor Name Role Phone Jammie Saavedrathony Gonsalez Primary Care Provider [phone] Reason for Visit * Reason Comments Outpatient Testing Encounter Details Date Type Department Care Team (Late st Contact Info) Description 02/13/2024 10:10 AM EST Laboratory Laboratory [address] [place] [phone] [address] [place] [address] Dysuria; Leukocytosis, unspecified type Allergies Active Allergy [...] mouth every other day. 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 18 g 3 4 Active Diclofenac Sodium 1 % External Gel (Voltaren) Apply topically to affected area 4 times a day as needed for Pain. Apply to left knee 100 g 5 4 Active Vitamin D3 1.25 MG (01323 UT) Oral Capsule Take 1 Capsule by mouth once a week. 12 Capsule 4 04/16/19 25 Active Potassium Chloride Bhavana ER 10 MEQ Oral Tablet Extended Release Take 1 Tablet by mouth in the morning. 90 Tablet 3 4 Active Anoro Ellipta 62.5-25 MCG/ACT Inhalation Aerosol Powder Breath Activated (umeclidinium-vilan terol)Indications:C OPD, group B, by GOLD 2017 classification ([facility]) INHALE ONE PUFF BY MOUTH IN [...] rinse after steroid. Test performed by Trudy MALTED MILK MIXER CPFT Diastolic dysfunction 08/01/2017 DIVERTICULOSIS OF COLON [...] 10:30 AM EST Cardiac Studies Cardiac Studies [address] [place] [address] 02/16/2024 12:30 PM EST Imaging Radiology [address] [place] [address] 03/11/2024 11:00 AM EST Office Visit Dermatology [address] [place] [address] Stacey Hathaway PA-C [address] [place] [address] [place] [address] 03/27/2024 10:00 AM EST Anticoagulation Pharmacy, [address] [place] [address] [place] [address] 07/16/2024 8:50 AM EDT Office Visit Family Medicine [address] [place] [phone] Agnes Saavedra, [address] [place] [address] 09/09/2024 10:30 AM EDT Nurse Only Ancillary [address] [place] [address] [place], Nurse Annual [address] [place] [address] 09/24/2024 2:00 PM EDT Office Visit Cardiology [address] [place] [address] Price De PA-C [address] [place] [address] Pending Results Name Type Priority Associated Diagnoses Date /Time URINALYSIS, REFLEX TO MICROSCOPIC Lab Routine Dysuria 02/13/2024 9:57 AM EST CRP (INFLAMMATORY MARKER) Lab Routine Leukocytosis, unspecified [...] of 2) 1997 COVID-19 Vaccine ( - 2023- season) 2023 Influenza Vaccine (FLU shot) (#1) 2023 CKD PHOS USE SMARTSET 15127 12/31/202312/10, 06/10/2019, 04/12/2018 Albumin/Creatinine Ratio 04/26/2024 024, 05/26/2022, 04/26/2021 GFR 08/06/2024 02/06/2024, 10/0 11/2023, 11/28/2023, Additional history exists Adult Wellness Visit 09/05/2024 09/06/2023, 08/31/19 23 Depression Screening 09/05/2024 09/06/2023, 09/06/19 24 O2 ASSESSMENT COMPLETED IN PAST YEAR FOR COPD 11/27/2024 11/28/2023 TSH 01/15/2025 01/16/2024, 02/2 11/2023, 04/26/2023, Additional history exists CKD HGB USE SMARTSET 54042 02/05/202502/05, 02/06/2024, 01/16/2024, Additional history exists DTap/Tdap [...] type documented in this encounter Care Teams Food Expeditor Relationship Specialty Start Date End Date Agnes Saavedra DO [address] [place] [address] [place] [phone] PCP - General Internal Medicine 04/26/23 documented as of this encounter
--- OUTSIDE RECORDS SUMMARY | 2024-06-14 13:33 | External Medical Summary ---
Author Name Unknown Address Unknown Organization K01:[facility] [place] [address] [place] [address] Laboratory Report Ordering Provider Test Date Status ZEYAD PRO 02/13/2024 09:57:06 Final Observation Date Value Abnormality Reference (Units ) Status CRP, low-sensitivity 02/13/2024 09:57:06 13 Above high normal <=5 (mg/L) Final Performing Location LABORATORY C - [address] [place] [address]
--- OUTSIDE RECORDS SUMMARY | 2024-06-14 13:33 | External Medical Summary | Summary of Care ---
Author Name Unknown Organization [facility] Address [address] [place] [address] Phone [phone] Care Team Providers Care Casino Porter Name Role Phone Merle Puga Primary Care Provider Reason for Visit * Reason Comments eRx-Medication Refill Encounter Details Date Type Department Care Team (Late st Contact Info) Description 03/05/2024 Refill Family Medicine [address] [phone] Geo Mitchell MD [address] [place], [place] [address] [address] Allergies Active Allergy Reactions Criticality Noted Date Comments Amoxicillin 04/13/2022 Severe itching Sulfamethoxazole-Trimethopri m 06/26/2018 Affected Kidneys Cephalexin 07/22/2020 Redness and flushing, diarrhea documented as of this encounter (statuses as of 03/06/2024) Medications CYANOCOBALAMIN (VITAMIN B-12) 100 MCG Tablet [...] on 09/06/2023 Ketoconazole 2 % External Shampoo (Nizoral)Indicat ions:Seborrheic dermatitis of scalp Massage into scalp and rinse out after 5 minutes--do 3 times weekly Strength: 2 % 120 mL 3 022 Active Clindamycin Phosphate 1 % External GelIndications:H /O folliculitis Apply to each open areas on body and scalp 2x daily (or more when itchy instead of rubbing/picking/s cratching at areas) 60 g 3 022 Active Triamcinolone Acetonide 0.1 % External Ointment (Aristocort)Chel cations:Pruritus Apply to open and itchy areas instead of scratching at them (2x daily or more if needed) 454 g 022 Active Metoprolol Succinate ER 25 MG Oral [...] (HCC),Atrial fibrillation, unspecified type (HCC),Anticoagul 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,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,Atrial fibrillation (HCC) Take 1-2 tablet by mouth daily as directed by anticoagulation clinic 90 Tablet 1 024 Active Fluticasone Propionate 50 MCG/ACT Nasal Suspension (Flonase)Indicat ions:Seasonal allergies 2 sprays each nostril daily 48 g 1 024 Active Famotidine 20 MG Oral Tablet (Pepcid)Indicati ons:GERD (gastroesophagea l reflux disease) TAKE ONE TABLET BY MOUTH EVERY DAY 90 Tablet 1 024 Active Omeprazole 40 MG Oral Capsule Delayed Release (PriLOSEC)Indica tions:Gastroesop hageal reflux disease without esophagitis TAKE ONE CAPSULE BY MOUTH TWICE DAILY 180 Capsule 1 024 Active Ramipril 2.5 MG Oral Capsule (Altace)Indicati ons:Stage 3a chronic kidney disease (HCC) TAKE ONE CAPSULE BY MOUTH EVERY DAY 90 Capsule 1 024 Active Gabapentin 100 MG [...] ons:COPD, group B, by GOLD 2017 classification ([facility]) INHALE 2 PUFFS EVERY 4 HOURS NEEDED SHORTNESS OF BREATH OR WHEEZING. 18 g 3 024 Active Diclofenac Sodium 1 % External Gel (Voltaren) Apply topically to affected area 4 times a day as needed for Pain. Apply to left knee 100 g 5 024 Active Vitamin D3 1.25 MG (45834 UT) Oral Capsule Take 1 Capsule by mouth once a week. 12 Capsule 024 2024 Active Potassium Chloride Bhavana ER 10 MEQ Oral Tablet Extended Release Take 1 Tablet by mouth in the morning. 90 Tablet 3 024 Active Anoro Ellipta 62.5-25 MCG/ACT Inhalation Aerosol Powder Breath Activated (umeclidinium-vi lanterol)Indicat ions:COPD, group B, by GOLD 2017 classification ([facility]) INHALE ONE PUFF BY MOUTH IN THE [...] IN THE MORNING 90 Tablet 1 Active Sertraline HCl 50 MG Oral Tablet (Zoloft) Take 1 Tablet by mouth in the morning. 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 Not on file Not on file documented as of this encounter Miscellaneous Notes * Telephone Encounter - Abdullahi Mccoy RP - 03/06/2024 8:09 AM EST Signed Prescriptions: Disp Refills Sertraline HCl 50 MG Oral Tablet (Zoloft) 90 Tab*1 Sig: TAKE ONETABLET BY MOUTH IN THE MORNINGAuthorizing Provider: MERLE PUGA User: ABDULLAHI MCCOY documented in this encounter Plan of Treatment Upcoming Encounters Date Type Department Care Team (Late st Contact Info) Description 03/11/2024 11:00 AM EST Office Visit Dermatology [address] [place] [address] Stacey Hathaway PA-C [address] [place] [address] [place] [address] 03/27/2024 10:00 AM EST Anticoagulation Pharmacy, [address] [place] [address] [place] [address] 07/16/2024 8:50 AM EDT Office Visit Family Medicine [address] [place] [phone] Merle Puga [address] [place] [address] 09/09/2024 10:30 AM EDT Nurse Only Ancillary [address] [place] [address] [place], Nurse Annual [address] [place] [address] 09/24/2024 2:00 PM EDT Office Visit Cardiology [address] [place] [address] Price De PA-C [address] [place] [address] Scheduled Procedures Name Priority Associated Diagnoses Date/Ti [...] shot) (#1) 2023 CKD PHOS USE SMARTSET 38007 12/31/202312/10, 06/10/2019, 04/12/2018 Albumin/Creatinine Ratio 04/26/2024 024, 05/26/2022, 04/26/2021 GFR 08/06/2024 02/06/2024, 1011/2023, 11/28/2023, Additional history exists Adult Wellness Visit 09/05/2024 09/06/2023, 08/31/19 23 Depression Screening 09/05/2024 09/06/2023, 09/06/19 24 O2 ASSESSMENT COMPLETED IN PAST YEAR FOR COPD 11/27/2024 11/28/2023 TSH 01/15/2025 01/16/2024, 05/12, 04/26/2023, Additional history exists CKD HGB USE SMARTSET 12232 02/05/202502/05, 02/06/2024, 01/16/2024, Additional history exists DTap/Tdap [...] filedocumented as of this encounter Care Teams Casino Porter Relationship Specialty Start Date End Date Merle Puga DO [address] [place] [address] [place] [address] PCP - General Internal Medicine 04/26/23 documented as of this encounter
--- OUTSIDE RECORDS SUMMARY | 2024-06-14 13:33 | External Medical Summary ---
Author Name Unknown Address Unknown Organization K01:LABORATORY [facility] [place] - [address] [facility] [address] Laboratory Report Ordering Provider Test Date Status ZEYAD PRO 02/15/2024 10:51:34 Final <10,000 colonies/ml mixed no rmal varsha Observation Date Value Abnormality Reference (Units ) Status Bacteria identified in Specimen by Culture 02/15/2024 10:51:34 [id number]^ESCHE RICHIA COLI Abnormal Final >100,000 colonies/mL Escheri abraham coli Performing Location LABORATORY [facility] [place] - [address] [facility] [address] Ordering Provider Test Date Status ZEYAD PRO 02/15/2024 10:51:34 Final Observation Date Value Abnormality Reference (Units ) Status Ampicillin 02/15/2024 10:51:34 4 Susceptible Final Cefazolin 02/15/2024 10:51:34 <=4 Susceptible Final Cefepime susceptibility 02/15/2024 10:51:34 <=1 Susceptible Final Ceftriaxone suceptibility 02/15/2024 10:51:34 <=1 Susceptible Final Ciprofloxacin 02/15/2024 10:51:34 <=0.25 Susceptible Final Due to serious side effects, the FDA has advised against using Ciprofloxacin to treat uncomplicated UTIs and respiratory tract infections unless there are no alternative treatment options. Gentamicin susceptibility 02/15/2024 10:51:34 <=1 Susc eptible Final Nitrofurantoin susceptibility 02/15/2024 10:51:34 <=16 Susceptible Final Piperacillin + Tazobactamsusceptibility 02/15/2024 10:51:34 <=4 Susceptible Final TMP-SMZ susceptibility 02/15/2024 10:51:34 <=20 Suscept ible Final Test: Culture, Urine, Quanti tative
Specimen Source: Urine, Clean Catch
Specimen Type: Urine
Specimen Date: 02/15/2024 1051
Result Date: 02/17/2024 1036
Result Status: Final result
Abnormal: Yes
Resulting Lab: LAB[facility]ATORY [facility] [place]
[address]
[place] [address]

CULTURE

>100,000 colonies/mL Escherichia coli (Abnormal)

<10,000 colonies/ml mixed normal varsha

SUSCEPTIBILITY

Escherichia coli
METHOD MICROBROTH
DILUTIONS

AMPICILLIN 4 Susceptible
CEFAZOLIN <=4 Susceptible
CEFEPIME <=1 Susceptible
CEFTRIAXONE <=1 Susceptible
CIPROFLOXACIN <=0.25 Susceptible
[1]
GENTAMICIN <=1 Susceptible
NITROFURANTOIN <=16 Susceptible
PIPERACILLIN TAZOBACTAM <=4 Susceptible
TRIMETH/SULFAMETHOXAZOLE <=20 Susceptible

[1] Due to serious side effects, the FDA has advised against using
Ciprofloxacin to treat uncomplicated UTIs and respiratory tract infections
unless there are no alternative treatment options.

null Performing Location LABORATORY [facility] [place] - [address] [facility] [address]
--- OUTSIDE RECORDS SUMMARY | 2024-06-14 13:33 | External Medical Summary | Summary of Care ---
Author Name Unknown Organization [facility] Address [address] [place] [address] Phone [phone] Care Team Providers Care Ripsaw Operator Name Role Phone Jammie Saavedrathony Gonsalez Primary Care Provider Reason for Visit * Reason Comments Outpatient Testing Encounter Details Date Type Department Care Team (Late st Contact Info) Description 02/13/2024 10:10 AM EST Laboratory Laboratory [address] [place] [phone] [address] [place] [address] Dysuria; Leukocytosis, unspecified type Allergies Active Allergy [...] mouth every other day. 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 18 g 3 4 Active Diclofenac Sodium 1 % External Gel (Voltaren) Apply topically to affected area 4 times a day as needed for Pain. Apply to left knee 100 g 5 4 Active Vitamin D3 1.25 MG (98943 UT) Oral Capsule Take 1 Capsule by mouth once a week. 12 Capsule 4 04/16/19 25 Active Potassium Chloride Bhavana ER 10 MEQ Oral Tablet Extended Release Take 1 Tablet by mouth in the morning. 90 Tablet 3 4 Active Anoro Ellipta 62.5-25 MCG/ACT Inhalation Aerosol Powder Breath Activated (umeclidinium-vilan terol)Indications:C OPD, group B, by GOLD 2017 classification ([facility] [...] rinse after steroid. Test performed by Trudy SPECIAL FORCES SPECIALIST CPFT Diastolic dysfunction 08/01/2017 DIVERTICULOSIS OF [...] 10:30 AM EST Cardiac Studies Cardiac Studies [address] [place] [address] 02/16/2024 12:30 PM EST Imaging Radiology [address] [place] [address] 03/11/2024 11:00 AM EST Office Visit Dermatology [address] [place] [address] Stacey Hathaway PA-C [address] [place] [address] [place] [address] 03/27/2024 10:00 AM EST Anticoagulation Pharmacy, [address] [place] [address] [place] [address] 07/16/2024 8:50 AM EDT Office Visit Family Medicine [address] [place] [phone] Agnes Saavedra, [address] [place] [address] 09/09/2024 10:30 AM EDT Nurse Only Ancillary [address] [place] [address] [place], Nurse Annual [address] [place] [address] 09/24/2024 2:00 PM EDT Office Visit Cardiology [address] [place] [address] Price De PA-C [address] [place] [address] Pending Results Name Type Priority Associated Diagnoses Date /Time URINALYSIS, REFLEX TO MICROSCOPIC Lab Routine Dysuria 02/13/2024 9:57 AM EST CULTURE, URINE, QUANTITATIVE Lab Routine Dysuria 02/13/2024 9:57 AM EST [...] shot) (#1) 2023 CKD PHOS USE SMARTSET 00858 12/31/20232 05/2022, 06/10/2019, 04/12/2018 Albumin/Creatinine Ratio 04/26/2024 024, 05/26/2022, 04/26/2021 GFR 08/06/2024 02/06/2024, 1011/2023, 11/28/2023, Additional history exists Adult Wellness Visit 09/05/2024 09/06/2023, 08/31/19 23 Depression Screening 09/05/2024 09/06/2023, 09/06/19 24 O2 ASSESSMENT COMPLETED IN PAST YEAR FOR COPD 11/27/2024 11/28/2023 TSH 01/15/2025 01/16/2024, 05/12, 04/26/2023, Additional history exists CKD HGB USE SMARTSET 03174 02/05/202502/05, 02/06/2024, 01/16/2024, Additional history exists DTap/Tdap [...] type documented in this encounter Care Teams Ripsaw Operator Relationship Specialty Start Date End Date Agnes Saavedra DO [address] [place] [address] [place] [phone] PCP - General Internal Medicine 04/26/23 documented as of this encounter
--- OUTSIDE RECORDS SUMMARY | 2024-06-14 13:33 | External Medical Summary ---
Author Name Unknown Address Unknown Organization : Laboratory Report Ordering Provider Test Date Status KAYLEE CHIU 02/13/2024 09:46:29 Final Therapeutic ranges for non-o perative patients:
Prophylaxsis/treatment of DVT: (Range:2.0-3.0)
Treatment of pulmonary embolism:(Range:2.0-3.0)
Prevention of systemic embolism from:
-tissue heart valves
-acute myocardial infarction
-valvular heart disease
-atrial fibrillation
(Range: 2.0-3.0)
Mechanical prosthetic valves: (Range: 2.5-3.5) Observation Date Value Abnormality Reference (Units ) Status INR in Capillary blood by Coagulation assay 02/13/2024 09:46:29 2.4 (INR) Final Performing Location
--- OUTSIDE RECORDS SUMMARY | 2024-06-14 13:33 | External Medical Summary | Summary of Care ---
Author Name Unknown Organization [facility] Address [address] [place] [facility] [place] [address] Phone [phone] Care Team Providers Care Manager Channel Name Role Phone Agnes Saavedra DO Primary Care Provider Reason for Visit * Reason Onset Date Comments Test Results 02/19/2024 Encounter Details Date Type Department Care Team (Late st Contact Info) Description 02/19/2024 Telephone Cardiology, [facility] [address] [facility] [place] [address] Price De PA-C [address] [facility] [place] [address] Test Results Allergies Active Allergy Reactions Criticality Noted Date Comments Amoxicillin 04/13/2022 Severe itching Sulfamethoxazole-Trimethopri m 06/26/2018 Affected Kidneys Cephalexin 07/22/2020 Redness and flushing, diarrhea documented as of this encounter (statuses as of 02/19/2024) Medications CYANOCOBALAMIN (VITAMIN B-12) 100 MCG Tablet Take 1 Tablet by mouth in the morning. Active Vitamin C 500 MG Oral Tablet (Ascorbic Acid) Take 1 Tablet by mouth every other day. 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 Prescription pended. ----- Message from Price De sent at 02/16/2024 4:35 PM EST ----- Stable. Results unchanged dating back to 2017. OK. * Telephone Encounter - Jose A Beltre LPN - 02/19/2024 9:54 AM EST ----- Message from Price De sent at 02/17/2024 8:54 AM EST ----- E. coli UTI Listed as having allergies to amoxicillin, Bactrim, and Cephalexin. On Amiodarone. Estimated CrCl 42.2 mL/min. Recommend nitrofurantoin 100 mg twice a day x 5 days. documented in this encounter Plan of Treatment Upcoming Encounters Date Type Department Care Team (Late st Contact Info) Description 03/11/2024 11:00 AM EST Office Visit Dermatology [address] [place] [address] Stacey Hathaway PA-C [address] [place] [address] [place] [address] 03/27/2024 10:00 AM EST Anticoagulation Pharmacy, [address] [place] [address] [place] [address] 07/16/2024 8:50 AM EDT Office Visit Family Medicine [address] [place] [phone] Agnes Saavedra [address] [place] [address] 09/09/2024 10:30 AM EDT Nurse Only Ancillary [address] [place] [address] [place], Nurse [address] [place] [address] 09/24/2024 2:00 PM EDT Office Visit Cardiology [address] [place] [address] Price De PA-C [address] [place] [address] Scheduled Procedures Name Priority Associated Diagnoses Date/Ti me COLONOSCOPY FLEXIBLE PROXIMA L DIAGNOSTIC Recall Encounter for screening colonoscopy Health Maintenance Due Date Last Done Comments DXA Scan 1945 Pneumococcal Vaccine: 65+ Years (1 of 2 - PCV) 1951 Alpha-1 Antitrypsin 1965 Zoster Vaccines (1 of 2) 1997 COVID-19 Vaccine (1 - season) 2023 Influenza Vaccine (FLU shot) (#1) 2023 CKD PHOS USE SMARTSET 02053 12/31/202312/10, 06/10/2019, 04/12/2018 Albumin/Creatinine Ratio 04/26/2024 024, 05/26/2022, 04/26/2021 GFR 08/06/2024 02/06/2024, 11/2023, 11/28/2023, Additional history exists Adult Wellness Visit 09/05/2024 09/06/2023, 08/31/19 23 Depression Screening 09/05/2024 09/06/2023, 09/06/19 24 O2 ASSESSMENT COMPLETED IN PAST YEAR FOR COPD 11/27/2024 11/28/2023 TSH 01/15/2025 01/16/2024, 05/12, 04/26/2023, Additional history exists CKD HGB USE SMARTSET 59904 02/05/202502/05, 02/06/2024, 01/16/2024, Additional history exists DTap/Tdap [...] filedocumented as of this encounter Care Teams Manager Channel Relationship Specialty Start Date End Date Agnes Saavedra DO [address] [place] [address] [place] [address] PCP - General Internal Medicine 04/26/23 documented as of this encounter
--- OUTSIDE RECORDS SUMMARY | 2024-06-14 13:33 | External Medical Summary | Summary of Care ---
Author Name Unknown Organization [facility] Address [address] [place] [address] Phone [phone] Care Team Providers Care Registered Dietitian Name Role Phone Agnes Saavedra Primary Care Provider Reason for Visit * Reason Comments eRx-Medication Refill Encounter Details Date Type Department Care Team (Late st Contact Info) Description 02/16/2024 Refill Cardiology, [facility] [address] [place] [address] Inocencia Jeffers PA-C [address] [place] [address] Acquired hypothyroidism Allergies Active Allergy Reactions Criticality Noted Date Comments Amoxicillin 04/13/2022 Severe itching Sulfamethoxazole-Trimethopri m 06/26/2018 Affected Kidneys Cephalexin 07/22/2020 Redness and flushing, diarrhea documented as of this encounter (statuses as of 02/18/2024) Medications CYANOCOBALAMIN (VITAMIN B-12) 100 MCG Tablet [...] (HCC),Atrial fibrillation, unspecified type (HCC),Anticoagul ation 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,penitentiary current use of anticoagulant therapy,Atrial fibrillation (HCC) [...] EVERY DAY 90 Tablet 1 024 Active Sertraline HCl 50 MG Oral Tablet (Zoloft) Take 1 Tablet by mouth in the morning. 30 Tablet 5 Active Omeprazole 40 MG Oral Capsule Delayed [...] MOUTH IN THE MORNING 90 Tablet 3 Active Albuterol Sulfate HFA 108 (90 Base) MCG/ACT Inhalation Aerosol SolutionIndicati ons:COPD, group B, by GOLD 2017 classification ([facility]) INHALE 2 PUFFS EVERY 4 HOURS NEEDED SHORTNESS OF BREATH OR WHEEZING. 18 g 3 Active Diclofenac Sodium 1 % External Gel (Voltaren) Apply topically to affected area 4 times a day as needed for Pain. Apply to left knee 100 g 5 Active Vitamin D3 1.25 MG (87825 UT) Oral Capsule Take 1 Capsule by mouth once a week. 12 Capsule 024 2024 Active Potassium Chloride Bhavana ER 10 MEQ Oral Tablet Extended Release Take 1 Tablet by mouth in the morning. 90 Tablet 3 024 Active Anoro Ellipta 62.5-25 MCG/ACT Inhalation Aerosol Powder Breath Activated (umeclidinium-vi lanterol)Indicat ions:COPD, group B, by GOLD 2017 classification ([facility]) INHALE ONE PUFF BY MOUTH IN THE MORNING 180 Each 1 Active Levothyroxine Sodium 75 MCG Oral Tablet (Levoxyl)Indicat ions:Acquired hypothyroidism take 1 tablet in the morning at least 30 minutes before breakfast or other medications. 90 Tablet 1 Active Levothyroxine Sodium 75 MCG Oral Tablet (Levoxyl)Indicat ions:Acquired hypothyroidism take 1 tablet in the morning at least 30 minutes before breakfast or other medications. 90 Tablet 3 024 2023 Discontinued documented as of this encounter (statuses as of 02/18/2024) Active Problems Problem Noted Date Diagnosed Date [...] rinse after steroid. 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 Reissuing balance of refills on current script. Thank you, Kameron Khan, PharmD Clinical Pharmacist [facility] [phone] 02/18/2024, 6:29 PM * Telephone Encounter - Interface, [facility] Inbound - 02/18/2024 9:41 AM EST Pending Prescriptions: Disp Refills Levothyroxine Sodium 75 MCG Oral Tablet [P*90 Tab*0 Sig: take 1tablet in the morning at least 30 minutes before breakfast or other medications. documented in this encounter Plan of Treatment Upcoming Encounters Date Type Department Care Team (Late st Contact Info) Description 03/11/2024 11:00 AM EST Office Visit Dermatology [address] [place] [address] Stacey Hathaway PA-C [address] [place] [address] [place] [address] 03/27/2024 10:00 AM EST Anticoagulation Pharmacy, [address] [place] [address] [place] [address] 07/16/2024 8:50 AM EDT Office Visit Family Medicine [address] [place] [phone] Agnes Saavedra [address] [place] [address] 09/09/2024 10:30 AM EDT Nurse Only Ancillary [address] [place] [address] [place], Nurse Annual Wellness [address] [place] [address] [place] [address] 09/24/2024 2:00 PM EDT Office Visit Cardiology [address] [place] [address] Inocencia Jeffers PA-Shanta [address] [place] [address] Scheduled Procedures Name Priority Associated Diagnoses Date/Ti me COLONOSCOPY FLEXIBLE PROXIMA L DIAGNOSTIC Recall Encounter for screening colonoscopy Health Maintenance Due Date Last Done Comments DXA Scan 1945 Pneumococcal Vaccine: 65+ Years (1 of 2 - PCV) 1953 Alpha-1 Antitrypsin 1965 Zoster Vaccines (1 of 2) 1997 COVID-19 Vaccine (1 - season) 2023 Influenza Vaccine (FLU shot) (#1) 2023 CKD PHOS USE SMARTSET 04229 12/31/202312/10, 06/10/2019, 04/12/2018 Albumin/Creatinine Ratio 04/26/2024 024, 05/26/2022, 04/26/2021 GFR 08/06/2024 02/06/2024, 11/2023, 11/28/2023, Additional history exists Adult Wellness Visit 09/05/2024 09/06/2023, 08/31/19 23 Depression Screening 09/05/2024 09/06/2023, 09/06/19 24 O2 ASSESSMENT COMPLETED IN PAST YEAR FOR COPD 11/27/2024 11/28/2023 TSH 01/15/2025 01/16/2024, 05/12, 04/26/2023, Additional history exists CKD HGB USE SMARTSET 26851 02/05/202502/05, 02/06/2024, 01/16/2024, Additional history exists DTap/Tdap [...] as of this encounter Visit Diagnoses Diagnosis Acquired hypothyroidism Unspecified hypothyroidism documented in this encounter Care Teams Registered Dietitian Relationship Specialty Start Date End Date Agnes Saavedra DO [address] [place] [address] [place] [address] PCP - General Internal Medicine 04/26/23 documented as of this encounter
--- OUTSIDE RECORDS SUMMARY | 2024-06-14 13:33 | External Medical Summary | Summary of Care ---
Author Name Unknown Organization [facility] Address [address] [place] [address] Phone [phone] Care Team Providers Care Tank Insulator Rubber Name Role Phone Agnes Saavedra DO Primary Care Provider [phone] Reason for Visit * Reason Onset Date Comments Advice 11/27/2023 Encounter Details Date Type Department Care Team (Late st Contact Info) Description 11/27/2023 Telephone Family Medicine [address] [phone] Agnse Saavedra [address] [place] [address] Advice Allergies Active Allergy Reactions Criticality Noted Date Comments Amoxicillin 04/13/2022 Severe itching Sulfamethoxazole-Trimethopri m 06/26/2018 Affected Kidneys Cephalexin 07/22/2020 Redness and flushing, diarrhea documented as of this encounter (statuses as of 02/26/2024) Medications CYANOCOBALAMIN (VITAMIN B-12) 100 MCG Tablet [...] DAY 90 Capsule 1 10/05/19 24 Active documented as of this encounter (statuses as of 02/26/2024) Active Problems Problem Noted Date Diagnosed Date [...] and rinse after steroid. 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 Not on file Not on file documented as of this encounter Plan of Treatment Upcoming Encounters Date Type Department Care Team (Late st Contact Info) Description 03/11/2024 11:00 AM EST Office Visit Dermatology [address] [place] [address] Stacey Hathaway PA-C [address] [place] [address] [place] [address] 03/27/2024 10:00 AM EST Anticoagulation Pharmacy, [address] [place] [address] [place] [address] 07/16/2024 8:50 AM EDT Office Visit Family Medicine [address] [place] [phone] Agnes Saavedra, [address] [place] [address] 09/09/2024 10:30 AM EDT Nurse Only Ancillary [address] [place] [address] [place], Nurse Annual Wellness [address] [place] [address] [place] [address] 09/24/2024 2:00 PM EDT Office Visit Cardiology [address] [place] [address] Price De PA-C [address] [place] [address] Scheduled Procedures Name Priority Associated Diagnoses Date/Ti me COLONOSCOPY FLEXIBLE PROXIMA L DIAGNOSTIC Recall Encounter for screening colonoscopy Health Maintenance Due Date Last Done Comments DXA Scan 1945 Pneumococcal Vaccine: 65+ Years (1 of 2 - PCV) 1953 Alpha-1 Antitrypsin 1965 Zoster Vaccines (1 of 2) 1997 COVID-19 Vaccine (1 - season) 2023 Influenza Vaccine (FLU shot) (#1) 2023 CKD PHOS USE SMARTSET 81510 12/31/202312/10, 06/10/2019, 04/12/2018 Albumin/Creatinine Ratio 04/26/2024 024, 05/26/2022, 04/26/2021 GFR 08/06/2024 02/06/2024, 1011/2023, 11/28/2023, Additional history exists Adult Wellness Visit 09/05/2024 09/06/2023, 08/31/19 23 Depression Screening 09/05/2024 09/06/2023, 09/06/19 24 O2 ASSESSMENT COMPLETED IN PAST YEAR FOR COPD 11/27/2024 11/28/2023 TSH 01/15/2025 01/16/2024, 05/12, 04/26/2023, Additional history exists CKD HGB USE SMARTSET 99323 02/05/202502/05, 02/06/2024, 01/16/2024, Additional history exists DTap/Tdap [...] filedocumented as of this encounter Care Teams Tank Insulator Rubber Relationship Specialty Start Date End Date Agnes Saavedra DO [address] [place] [address] [place] [phone] PCP - General Internal Medicine 04/26/23 documented as of this encounter
--- OUTSIDE RECORDS SUMMARY | 2024-06-14 13:33 | External Medical Summary | Summary of Care ---
Author Name Unknown Organization [facility] Address [address] [place] [address] Phone [phone] Care Team Providers Care Psychologist Research Assistant Name Role Phone Jammie Saavedrathony Gonsalez Primary Care Provider [phone] Reason for Visit * Reason Comments Outpatient Testing Encounter Details Date Type Department Care Team (Late st Contact Info) Description 02/15/2024 11:30 AM EST Laboratory Laboratory [address] [place] [phone] , Specimen Drop Off [address] [place] [address] Arrived Allergies Active Allergy Reactions Criticality Noted Date Comments Amoxicillin 04/13/2022 Severe itching Sulfamethoxazole-Trimethopri m 06/26/2018 Affected Kidneys Cephalexin 07/22/2020 Redness and flushing, diarrhea documented as of this encounter (statuses as of 02/15/2024) Medications Medication Sig Dispensed Refills Start Date End Date Status CYANOCOBALAMIN (VITAMIN B-12) 100 MCG Tablet Take 1 Tablet by mouth in the morning. Active Vitamin C 500 MG Oral Tablet (Ascorbic Acid) Take 1 Tablet by mouth every other day. Active oxygen IN GASIndications:Block Machine Operator anabelle diastolic congestive heart failure (HCC),COPD, group [...] (HCC),Atrial fibrillation, unspecified type (HCC),Anticoagulati on 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,retirement current use of anticoagulant therapy,Atrial fibrillation (HCC) [...] B, by GOLD 2017 classification ([facility]) INHALE 2 PUFFS EVERY 4 HOURS NEEDED SHORTNESS OF BREATH OR WHEEZING. 18 g 3 4 Active Diclofenac Sodium 1 % External Gel (Voltaren) Apply topically to affected area 4 times a day as needed for Pain. Apply to left knee 100 g 5 4 Active Vitamin D3 1.25 MG (86304 UT) Oral Capsule Take 1 Capsule by mouth once a week. 12 Capsule 4 04/16/19 25 Active Potassium Chloride Bhavana ER 10 MEQ Oral Tablet Extended Release Take 1 Tablet by mouth in the morning. 90 Tablet 3 4 Active Anoro Ellipta 62.5-25 MCG/ACT Inhalation Aerosol Powder Breath Activated (umeclidinium-vilan terol)Indications:C OPD, group B, by GOLD 2017 classification ([facility]) INHALE ONE PUFF BY MOUTH IN THE MORNING 180 Each 1 4 Active documented as of this encounter (statuses as of 02/15/2024) Active Problems Problem Noted Date Diagnosed Date [...] rinse after steroid. Test performed by Trudy CELLO TEACHER CPFT Diastolic dysfunction 08/01/2017 DIVERTICULOSIS OF COLON Family history of colon cancer Gastroesophageal reflux disease without esophagi tis GENERAL OSTEOARTHROSIS Sciatica Carpal tunnel syndrome documented as of this encounter (statuses as of 02/15/2024) Resolved Problems Problem Noted Date Diagnosed Date [...] as of this encounter (statuses as of 02/15/2024) Immunizations Name Administration Dates Next Due TDAP [...] Description 02/16/2024 12:30 PM EST Imaging Radiology [address] [place] [address] 03/11/2024 11:00 AM EST Office Visit Dermatology [address] [place] [address] Stacey Hathaway PA-C [address] [place] [address] [place] [address] 03/27/2024 10:00 AM EST Anticoagulation Pharmacy, [address] [place] [address] [place] [address] 07/16/2024 8:50 AM EDT Office Visit Family Medicine [address] [place] [phone] Agnes Saavedra, [address] [place] [address] 09/09/2024 10:30 AM EDT Nurse Only Ancillary [address] [place] [address] [place], Nurse Annual Wellness [address] [place] [address] [place] [address] 09/24/2024 2:00 PM EDT Office Visit Cardiology [address] [place] [address] Price De PA-C [address] [place] [address] Scheduled Procedures Name Priority Associated Diagnoses Date/Ti me COLONOSCOPY FLEXIBLE PROXIMA L DIAGNOSTIC Recall Encounter for screening colonoscopy Health Maintenance Due Date Last Done Comments DXA Scan 1945 Pneumococcal Vaccine: 65+ Years (1 of 2 - PCV) 1951 Alpha-1 Antitrypsin 1965 Zoster Vaccines (1 of 2) 1997 COVID-19 Vaccine (1 - season) 2023 Influenza Vaccine (FLU shot) (#1) 2023 CKD PHOS USE SMARTSET 86535 12/31/202312/10, 06/10/2019, 04/12/2018 Albumin/Creatinine Ratio 04/26/2024 024, 05/26/2022, 04/26/2021 GFR 08/06/2024 02/06/2024, 1011/2023, 11/28/2023, Additional history exists Adult Wellness Visit 09/05/2024 09/06/2023, 08/31/19 23 Depression Screening 09/05/2024 09/06/2023, 09/06/19 24 O2 ASSESSMENT COMPLETED IN PAST YEAR FOR COPD 11/27/2024 11/28/2023 TSH 01/15/2025 01/16/2024, 05/12, 04/26/2023, Additional history exists CKD HGB USE SMARTSET 29491 02/05/202502/05, 02/06/2024, 01/16/2024, Additional history exists DTap/Tdap [...] filedocumented as of this encounter Care Teams Psychologist Research Assistant Relationship Specialty Start Date End Date Agnes Saavedra DO [address] [place] [address] [place] [address] PCP - General Internal Medicine 04/26/23 documented as of this encounter
--- OUTSIDE RECORDS SUMMARY | 2024-06-14 13:33 | External Medical Summary ---
Author Name Unknown Address Unknown Organization K01:LABORATORY [facility] - [address] [facility] [address] Laboratory Report Ordering Provider Test Date Status ZEYAD PRO 02/15/2024 10:51:34 Final Observation Date Value Abnormality Reference (Units ) Status Color of Urine by Auto 02/15/2024 10:51:34 Yellow Colorless, Light Yellow, Yellow, Dark Yellow Final Clarity, Urine 02/15/2024 10:51:34 Slightly Cloudy Abnormal Clear Final Glucose [Mass/volume] in Urine by Automated test strip 02/15/2024 10:51:34 Negative Negative (mg/dL) Final Bilirubin.total [Presence] in Urine by Automated test strip 02/15/2024 10:51:34 Negative Negative Final Ketones [Mass/volume] in Urine by Automated test strip 02/15/2024 10:51:34 Negative Negative (mg/dL) Final Specific gravity, Urine 02/15/2024 10:51:34 1.019 1.003-1.030 Final Hemoglobin [Presence] in Urine by Automated test strip 02/15/2024 10:51:34 Negative Negative Final pH, Urine 02/15/2024 10:51:34 6.0 5.0-7.5 (Units) Final Protein [Mass/volume] in Urine by Automated test strip 02/15/2024 10:51:34 Trace Abnormal Negative (mg/dL) Final Urobilinogen [Mass/volume] in Urine by Automated test strip 02/15/2024 10:51:34 Normal Normal (mg/dL) Final Nitrite [Presence] in Urine by Automated test strip 02/15/2024 10:51:34 Negative Negative Final Leukocyte esterase [Presence] in Urine by Automated test strip 02/15/2024 10:51:34 Large Abnormal Negative Final RBC, Urine 02/15/2024 10:51:34 6-9 Abnormal 0-2 (/HPF) Final WBC, Urine 02/15/2024 10:51:34 50+ Abnormal 0-2 (/HPF) Final Bacteria [#/area] in Urine sediment by Microscopy high power field 02/15/2024 10:51:34 151-200 Abnormal 0-25 (/HPF) Final Performing Location LABORATORY [facility] - [facility] [address] [facility] [address]
--- OUTSIDE RECORDS SUMMARY | 2024-06-14 13:33 | External Medical Summary ---
Author Name Unknown Address Unknown Organization K01:[facility] [place] - [address] [place] [address] Laboratory Report Ordering Provider Test Date Status ZEYAD PRO 02/13/2024 09:57:06 Final Observation Date Value Abnormality Reference (Units ) Status Erythrocyte sedimentation rate by Photometric method 02/13/2024 09:57:06 26 <30 (mm/hour) Final Performing Location LAB[facility] [place] - [address] [place] [address]
--- OUTSIDE RECORDS SUMMARY | 2024-06-14 13:34 | External Medical Summary | Summary of Care ---
Author Name Unknown Organization [facility] Address [address] [place] [facility] [place] [address] Phone [phone] Care Team Providers Care Program Manager Rn Name Role Phone Jammie Saavedrathony Gonsalez Primary Care Provider Reason for Visit * Reason Comments Outpatient Testing Encounter Details Date Type Department Care Team (Late st Contact Info) Description 02/06/2024 11:50 AM EDT Laboratory Laboratory [address] [place] [phone] [place] [address] Elevated WBC count; Encounter for monitoring diuretic therapy Allergies Active Allergy Reactions Criticality Noted Date Comments Amoxicillin 04/13/2022 Severe itching Sulfamethoxazole-Trimethopri m 06/26/2018 Affected Kidneys Cephalexin 07/22/2020 Redness and flushing, diarrhea documented as of this encounter (statuses as of 02/06/2024) Medications Medication Sig Dispensed Refills Start Date End Date Status CYANOCOBALAMIN (VITAMIN B-12) 100 MCG Tablet Take 1 Tablet by mouth in the morning. Active Vitamin C 500 MG Oral Tablet (Ascorbic Acid) Take 1 Tablet by mouth every other day. 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) INHALE ONE PUFF BY MOUTH IN THE MORNING 180 Each 1 4 Active Fluticasone Propionate 50 MCG/ACT [...] :COPD, group B, by GOLD 2017 classification ([facility]) INHALE 2 PUFFS EVERY 4 HOURS NEEDED SHORTNESS OF BREATH OR WHEEZING. 18 g 3 4 Active Diclofenac Sodium 1 % External Gel (Voltaren) Apply topically to affected area 4 times a day as needed for Pain. Apply to left knee 100 g 5 4 Active Vitamin D3 1.25 MG (61191 UT) Oral Capsule Take 1 Capsule by mouth once a week. 12 Capsule 4 04/16/19 25 Active Potassium Chloride Bhavana ER 10 MEQ Oral Tablet Extended Release Take 1 Tablet by mouth in the morning. 90 Tablet 3 4 Active documented as of this encounter (statuses as of 02/06/2024) Active Problems Problem Noted Date Diagnosed Date [...] rinse after steroid. Test performed by Trudy VALUE ADVISOR CPFT Diastolic dysfunction 08/01/2017 DIVERTICULOSIS OF COLON Family history of colon cancer Gastroesophageal reflux disease without esophagi tis GENERAL OSTEOARTHROSIS Sciatica Carpal tunnel syndrome documented as of this encounter (statuses as of 02/06/2024) Resolved Problems Problem Noted Date Diagnosed Date [...] as of this encounter (statuses as of 02/06/2024) Immunizations Name Administration Dates Next Due TDAP [...] Care Team (Late st Contact Info) Description 02/12/2024 11:15 AM EST Imaging Radiology [address] [place] [address] 02/13/2024 9:40 AM EST Anticoagulation Pharmacy, [address] [place] [address] [place] [address] 02/15/2024 10:30 AM EST Cardiac Studies Cardiac Studies [address] [place] [address] 02/16/2024 12:30 PM EST Imaging Radiology [address] [place] [address] 03/11/2024 11:00 AM EST Office Visit Dermatology [address] [place] [address] Stacey Hathaway PA-C [address] [place] [address] [place] [address] 07/16/2024 8:50 AM EDT Office Visit Family Medicine [address] [place] [phone] Agnes Saavedra DO [address] [place] [address] [place] [address] 09/09/2024 10:30 AM EDT Nurse Only Ancillary [address] [place] [address] Kristen, Nurse [address] [place] [address] 09/24/2024 2:00 PM EDT Office Visit Cardiology [address] [place] [address] Price De PA-C [address] [place] [address] Pending Results Name Type Priority Associated Diagnoses Date /Time COMPREHENSIVE METABOLIC PANEL Lab Routine Elevated WBC count Encounter for monitoring diuretic therapy 02/06/2024 11:49 AM EDT CBC WITH WBC DIFFERENTIAL Lab Routine Elevated WBC count 02/06/2024 11:49 AM EDT CBC Lab Routine Elevated WBC count 02/06/2024 11:49 AM EDT DIFFERENTIAL, AUTOMATED Lab Routine Elevated WBC count 02/06/2024 11:49 AM EDT Scheduled Procedures Name Priority Associated Diagnoses Date/Ti me COLONOSCOPY FLEXIBLE PROXIMA L DIAGNOSTIC Recall Encounter for screening colonoscopy Health Maintenance Due Date Last Done Comments DXA Scan 1945 Pneumococcal Vaccine: 65+ Years (1 of 2 - PCV) 1951 Alpha-1 Antitrypsin 1965 Zoster Vaccines (1 of 2) 1997 COVID-19 Vaccine (1 - season) 2023 Influenza Vaccine (FLU shot) (#1) 2023 CKD PHOS USE SMARTSET 60233 12/31/202312/10, 06/10/2019, 04/12/2018 Albumin/Creatinine Ratio 04/26/2024 024, 05/26/2022, 04/26/2021 GFR 07/16/2024 01/16/2024, 11/09, 06/07/2023, Additional history exists Adult Wellness Visit 09/05/2024 09/06/2023, 08/31/19 23 Depression Screening 09/05/2024 09/06/2023, 09/06/19 24 O2 ASSESSMENT COMPLETED IN PAST YEAR FOR COPD 11/27/2024 11/28/2023 CKD HGB USE SMARTSET 85119 01/15/202501/15, 04/26/2023, 04/26/2023, Additional history exists TSH 01/15/2025 01/16/2024, 05/12, 04/26/2023, Additional history exists DTap/Tdap Vaccines (3 - [...] as of this encounter Visit Diagnoses Diagnosis Elevated WBC count Leukocytosis, unspecified Encounter for monitoring diuretic therapy Encounter for therapeutic drug monitoring documented in this encounter Care Teams Program Manager Rn Relationship Specialty Start Date End Date Agnes Saavedra DO [address] [place] [address] [place] [address] PCP - General Internal Medicine 04/26/23 documented as of this encounter
--- OUTSIDE RECORDS SUMMARY | 2024-06-14 13:34 | External Medical Summary ---
Author Name Unknown Address Unknown Organization K01:[facility] [place] [address] [facility] [address] Laboratory Report Ordering Provider Test Date Status ZEYAD PRO 02/06/2024 11:49:58 Final Observation Date Value Abnormality Reference (Units ) Status SYNC LEUKOCYTES IN BLOOD BY AUTOMATED COUNT 02/06/2024 11:49:58 12.29 Above high normal 4.00-10.80 (K/uL) Final Segs 02/06/2024 11:49:58 70.8 40.0-75.0 (%) Final Lymphs % 02/06/2024 11:49:58 16.4 Below low normal 18.0-42.0 (%) Final Monos 02/06/2024 11:49:58 8.1 1.0-11.0 (%) Final Eosinophils 02/06/2024 11:49:58 2.6 0.0-6.0 (%) Final Basos 02/06/2024 11:49:58 0.6 0.0-2.0 (%) Final Immature Granulocyte, Percent 02/06/2024 11:49:58 1.5 0.0-2.0 (%) Final Absolute Segs 02/06/2024 11:49:58 8.71 Above high normal 1.80-7.70 (K/uL) Final Lymphs, absolute 02/06/2024 11:49:58 2.02 1.00-4.80 (K/ul) Final Monos, Abs 02/06/2024 11:49:58 0.99 0.00-1.10 (K/uL) Final Eos, Abs 02/06/2024 11:49:58 0.32 0.00-0.70 (K/uL) Final Basos, Abs 02/06/2024 11:49:58 0.07 0.00-0.20 (K/uL) Final Immature Granulocytes, Number 02/06/2024 11:49:58 0.18 0.00-0.20 (K/uL) Final Performing Location [facility] [place] [address] [facility] [address]
--- OUTSIDE RECORDS SUMMARY | 2024-06-14 13:34 | External Medical Summary | Summary of Care ---
Author Name Unknown Organization [facility] Address [address] [place] [address] Phone [phone] Care Team Providers Care White Lead Grinder Name Role Phone Jammie Saavedraanda Sunshine MCCOY Primary Care Provider [phone] Reason for Visit * Reason Comments Outpatient Testing Encounter Details Date Type Department Care Team (Late st Contact Info) Description 01/16/2024 9:10 AM EDT Laboratory Laboratory [address] [place] [phone] [facility] [address] [place] [address] Vitamin D deficiency; Chronic kidney disease, stage 3a ([facility]); Elevated parathyroid hormone; Encounter for monitoring diuretic therapy; Nonrheumatic aortic valve stenosis; Chronic diastolic congestive heart failure ([facility]); Encounter for monitoring amiodarone therapy; PAF (paroxysmal atrial fibrillation) ([facility]) Allergies Active Allergy Reactions Criticality Noted Date Comments Amoxicillin 04/13/2022 Severe itching Sulfamethoxazole-Trimethopri m 06/26/2018 Affected Kidneys Cephalexin 07/22/2020 Redness and flushing, diarrhea documented as of this encounter (statuses as of 01/16/2024) Medications Medication Sig Dispensed Refills Start Date End Date Status CYANOCOBALAMIN (VITAMIN B-12) 100 MCG Tablet Take 1 Tablet by mouth in the morning. Active Vitamin C 500 MG Oral Tablet (Ascorbic Acid) Take 1 Tablet by mouth every other day. 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 (HCC),COPD, group B, by GOLD 2017 classification ([facility]) Use as directed 2 L/min(Oxygen) at bedtime [...] (HCC),Atrial fibrillation, unspecified type (HCC),Anticoagulati on 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,halfway current use of anticoagulant therapy,Atrial fibrillation (HCC) Take 1-2 tablet by mouth daily as directed by anticoagulation clinic 90 Tablet 1 4 Active Anoro Ellipta 62.5-25 MCG/ACT Inhalation Aerosol Powder Breath Activated (umeclidinium-vilan terol)Indications:C OPD, group B, by GOLD 2017 classification ([facility]) INHALE ONE PUFF BY MOUTH IN THE MORNING 180 Each 1 4 Active Potassium Chloride Bhavana ER 10 MEQ Oral Tablet Extended Release Take one tablet by mouth on days taking 40 mg of furosemide and take two tablets by mouth on days taking 60 mg of furosemide. 180 Tablet 1 4 Active Fluticasone Propionate 50 [...] :COPD, group B, by GOLD 2017 classification ([facility]) INHALE 2 PUFFS EVERY 4 HOURS NEEDED SHORTNESS OF BREATH OR WHEEZING. 18 g 3 4 Active Diclofenac Sodium 1 % External Gel (Voltaren) Apply topically to affected area 4 times a day as needed for Pain. Apply to left knee 100 g 5 Active documented as of this encounter (statuses as of 01/16/2024) Active Problems Problem Noted Date Diagnosed Date [...] rinse after steroid. 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 Diastolic dysfunction 08/01/2017 DIVERTICULOSIS OF COLON Family history of colon cancer Gastroesophageal reflux disease without esophagi tis GENERAL OSTEOARTHROSIS Sciatica Carpal tunnel syndrome documented as of this encounter (statuses as of 01/16/2024) Resolved Problems Problem Noted Date Diagnosed Date [...] as of this encounter (statuses as of 01/16/2024) Immunizations Name Administration Dates Next Due TDAP [...] Team (Late st Contact Info) Description 02/13/2024 9:40 AM EST Anticoagulation Pharmacy, [address] [place] [address] [place] [address] 02/15/2024 10:30 AM EST Cardiac Studies Cardiac Studies [address] [place] [address] 02/15/2024 12:30 PM EST Imaging Radiology [address] [place] [address] 03/11/2024 11:00 AM EST Office Visit Dermatology [address] [place] [address] Stacey Hathaway PA-C [address] [place] [address] [place] [address] 07/16/2024 8:50 AM EDT Office Visit Family Medicine [address] [place] [phone] Agnes Saavedra DO [address] [place] [address] [place] [address] 09/09/2024 10:30 AM EDT Nurse Only Ancillary [address] [place] [address] [place], Nurse Annual [address] [place] [address] 09/24/2024 2:00 PM EDT Office Visit Cardiology [address] [place] [address] Price De PA-C [address] [place] [address] Pending Results Name Type Priority Associated Diagnoses Date /Time 25-HYDROXY VITAMIN D Lab Routine Vitamin D deficiency Chronic kidney disease, stage 3a (HCC) Elevated parathyroid hormone 01/16/2024 9:03 AM EDT PTH Lab Routine Vitamin D deficiency Chronic kidney disease, stage 3a (HCC) Elevated parathyroid hormone 01/16/2024 9:03 AM EDT TSH Lab Routine Encounter for monitoring amiodarone therapy 01/16/2024 9:03 AM EDT COMPREHENSIVE METABOLIC PANEL Lab Routine Encounter for monitoring amiodarone therapy 01/16/2024 9:03 AM EDT CBC Lab Routine PAF (paroxysmal atrial fibrillation) (HCC) 01/16/2024 9:03 AM EDT Scheduled Procedures Name Priority Associated [...] shot) (#1) 2023 CKD PHOS USE SMARTSET 20345 12/31/202312/10, 06/10/2019, 04/12/2018 Albumin/Creatinine Ratio 04/26/2024 024, 05/26/2022, 04/26/2021 CKD HGB USE SMARTSET 81112 04/26/202404/26, 04/26/2023, 12/30/2022, Additional history exists GFR 2024 11/28/2023, 05/12, 04/26/2023, Additional history exists TSH 06/07/2024 06/07/2023, 04/10, 12/30/2022, Additional history exists Adult Wellness Visit 09/05/2024 09/06/2023, 08/31/19 23 Depression Screening 09/05/2024 09/06/2023, 09/06/19 24 O2 ASSESSMENT COMPLETED IN PAST YEAR FOR COPD 11/27/2024 11/28/2023 DTap/Tdap Vaccines (3 - Td or Tdap) [...] as of this encounter Visit Diagnoses Diagnosis Vitamin D deficiency Unspecified vitamin D deficiency Chronic kidney disease, stage 3a (HCC) Elevated parathyroid hormone Unspecified endocrine disorder Encounter for monitoring diuretic therapy Encounter for therapeutic drug monitoring Nonrheumatic aortic valve stenosis Aortic valve disorders Chronic diastolic congestive heart failure (HCC) Chronic diastolic heart failure Encounter for monitoring amiodarone therapy Encounter for therapeutic drug monitoring PAF (paroxysmal atrial fibrillation) (HCC) Atrial fibrillation documented in this encounter Care Teams White Lead Grinder Relationship Specialty Start Date End Date Agnes Saavedra DO [address] [place] [address] [place] [address] PCP - General Internal Medicine 04/26/23 documented as of this encounter
--- OUTSIDE RECORDS SUMMARY | 2024-06-14 13:34 | External Medical Summary ---
Author Name Unknown Address Unknown Organization K01:LAB[facility]ATORY [facility] [place] - [address] [place] [address] Laboratory Report Ordering Provider Test Date Status ZEYAD PRO 02/06/2024 11:49:58 Final Observation Date Value Abnormality Reference (Units ) Status BUN 02/06/2024 11:49:58 23 Above high normal 6-20 (mg/dL) Final Creatinine 02/06/2024 11:49:58 1.2 Above high normal 0.5-1.0 (mg/dL) Final Glomerular filtration rate/1.73 sq M.predicted [Volume Rate/Area] in Serum, Plasma or Blood by Creatinine-based formula (CKD-EPI) 02/06/2024 11:49:58 47 Below low normal >=60 (mL/min) Final eGFR is calculated based on the CKD-EPI 2020 equation. Sodium 02/06/2024 11:49:58 139 135-146 (m mol/L) Final Potassium 02/06/2024 11:49:58 4.8 3.5-5.1 (m mol/L) Final Cl 02/06/2024 11:49:58 102 98-107 (mm ol/L) Final CO2 02/06/2024 11:49:58 24 22-32 (mmo l/L) Final Anion gap 02/06/2024 11:49:58 13 7-15 (mmol /L) Final Glucose 02/06/2024 11:49:58 103 70-120 (mg /dL) Final Albumin 02/06/2024 11:49:58 3.9 3.8-5.0 (g /dL) Final AST (Aspartate aminotransferase) 02/06/2024 11:49:58 40 Above high normal 10-35 (U/L) Final Alk Phos 02/06/2024 11:49:58 191 Above high normal 35 -130 (U/L) Final Bilirubin, Total 02/06/2024 11:49:58 0.4 <=1 .2 (mg/dL) Final Calcium 02/06/2024 11:49:58 9.7 8.4-10.2 ( mg/dL) Final Protein 02/06/2024 11:49:58 6.7 6.0-8.3 (g /dL) Final ALT (Alanine aminotransferase) 02/06/2024 11:49:58 34 10-35 (U/L) Wagner quick Performing Location LABORATORY [facility] [place] - [address] [facility] [address]
--- OUTSIDE RECORDS SUMMARY | 2024-06-14 13:34 | External Medical Summary ---
Author Name Unknown Address Unknown Organization K01:[facility]ATORY [facility] [place] - [address] [place] [address] Laboratory Report Ordering Provider Test Date Status ZEYAD PRO 01/16/2024 09:03:00 Final Observation Date Value Abnormality Reference (Units ) Status WBC, Total 01/16/2024 09:03:00 12.80 Above high normal 4.00-10.80 (K/uL) Final RBC 01/16/2024 09:03:00 4.28 3.85-5.15 (M/uL) Final Hemoglobin 01/16/2024 09:03:00 12.7 12.0-15.3 (g/dL) Final HCT 01/16/2024 09:03:00 42.3 36.0-45.2 (%) Final MCV 01/16/2024 09:03:00 98.8 81.5-97.5 (fL) Final MCH 01/16/2024 09:03:00 29.7 27.0-34.0 (pg) Final MCHC 01/16/2024 09:03:00 30.0 32.0-36.0 (g/dL) Final RDW 01/16/2024 09:03:00 14.7 11.5-15.5 (%) Final Platelets 01/16/2024 09:03:00 265 140-400 (K/uL) Final MPV 01/16/2024 09:03:00 12.0 6.6-11.1 (fL) Final Nucleated erythrocytes/100 leukocytes [Ratio] in Blood by Automated count 01/16/2024 09:03:00 0 <=0 (/100 WBCs) Final Performing Location LAB[facility]ATORY [facility] [place] - [address] [place] [address]
--- OUTSIDE RECORDS SUMMARY | 2024-06-14 13:34 | External Medical Summary | Summary of Care ---
Author Name Unknown Organization [facility] Address [address] [place] [address] Phone [phone] Care Team Providers Care Dining Car Waiter/Waitress Name Role Phone Agnes Saavedra DO Primary Care Provider Reason for Visit * Reason Onset Date Comments Test Results 01/17/2024 Encounter Details Date Type Department Care Team (Late st Contact Info) Description 01/17/2024 Telephone Family Medicine [address] [phone] Agnes Saavedra DO [address] [place], [place] [address] [id number] Test Results Allergies Active Allergy Reactions Criticality Noted Date Comments Amoxicillin 04/13/2022 Severe itching Sulfamethoxazole-Trimethopri m 06/26/2018 Affected Kidneys Cephalexin 07/22/2020 Redness and flushing, diarrhea documented as of this encounter (statuses as of 01/19/2024) Medications Medication Sig Dispensed Refills Start Date End Date Status CYANOCOBALAMIN (VITAMIN B-12) 100 MCG Tablet Take 1 Tablet by mouth in the morning. Active Vitamin C 500 MG Oral Tablet (Ascorbic Acid) Take 1 Tablet by mouth every other day. Active oxygen IN GASIndications:Chr onic diastolic congestive heart failure (HCC),COPD, group B, [...] on 09/06/2023 Ketoconazole 2 % External Shampoo (Nizoral)Indicatio ns:Seborrheic dermatitis of scalp Massage into scalp and rinse out after 5 minutes--do 3 times weekly Strength: 2 % 120 mL 3 2 Active Clindamycin Phosphate 1 % External GelIndications:H/O folliculitis Apply to each open areas on body and scalp 2x daily (or more when itchy instead of rubbing/picking/scr atching at areas) 60 g 3 2 Active Triamcinolone Acetonide 0.1 % External Ointment (Aristocort)Indica tions:Pruritus Apply to open and itchy areas instead of scratching at them (2x daily or more if needed) 454 g 2 Active Metoprolol Succinate ER 25 MG Oral Tablet Extended Release 24 Hour (toPROL XL)Indications:PAF (paroxysmal atrial fibrillation) (HCC) TAKE ONE TABLET BY MOUTH EVERY DAY 90 Tablet 3 3 Active Amiodarone HCl 200 MG Oral Tablet (Cordarone)Indicat ions:Paroxysmal atrial fibrillation (HCC) TAKE ONE TABLET BY MOUTH EVERY DAY 90 Tablet 3 4 Active Furosemide 20 MG Oral Tablet (Lasix)Indications :Bilateral lower extremity edema Take 2 Tablets by mouth once a day on Monday, , Monday, and Monday only AND 3 Tablets once a day on Monday, Monday, and Monday only. 4 Active Levothyroxine Sodium 75 MCG Oral Tablet (Levoxyl)Indicatio ns:Acquired hypothyroidism take 1 tablet in the morning at least 30 minutes before breakfast or other medications. 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,Atrial fibrillation (HCC) Take 1-2 tablet by mouth daily as directed by anticoagulation clinic 90 Tablet 1 4 Active Anoro Ellipta 62.5-25 MCG/ACT Inhalation Aerosol Powder Breath Activated (umeclidinium-solitario nterol)Indications :COPD, group B, by GOLD 2017 classification ([facility]) INHALE ONE PUFF BY MOUTH IN THE MORNING 180 Each 1 4 Active Fluticasone Propionate 50 MCG/ACT Nasal Suspension (Flonase)Indicatio ns:Seasonal allergies 2 sprays each nostril daily 48 g 1 4 Active Famotidine 20 MG Oral Tablet (Pepcid)Indication s:GERD (gastroesophageal reflux disease) TAKE ONE TABLET BY MOUTH EVERY DAY 90 Tablet 1 4 Active Sertraline HCl 50 MG Oral Tablet (Zoloft) Take 1 Tablet by mouth in the morning. 30 Tablet 5 4 Active Omeprazole 40 MG Oral Capsule Delayed Release (PriLOSEC)Indicati ons:Gastroesophage al reflux disease without esophagitis TAKE ONE CAPSULE BY MOUTH TWICE DAILY 180 Capsule 1 4 Active Ramipril 2.5 MG Oral Capsule (Altace)Indication s:Stage 3a chronic kidney disease ([facility]) TAKE ONE CAPSULE BY MOUTH EVERY DAY 90 Capsule 1 4 Active Gabapentin 100 MG Oral Capsule (Neurontin)Indicat ions:Post herpetic neuralgia take 1 capsule in the morning 90 Capsule 1 4 Active Gabapentin 300 MG Oral Capsule (Neurontin)Indicat ions:Post herpetic neuralgia Take 1 Capsule by mouth at bedtime. 90 Capsule 1 4 Active Atorvastatin Calcium 10 MG Oral Tablet (Lipitor)Indicatio ns:Dyslipidemia TAKE ONE TABLET BY MOUTH IN THE MORNING 90 Tablet 3 4 Active Albuterol Sulfate HFA 108 (90 Base) MCG/ACT Inhalation Aerosol SolutionIndication s:COPD, group B, by GOLD 2017 classification ([facility]) INHALE 2 PUFFS EVERY 4 HOURS NEEDED SHORTNESS OF BREATH OR WHEEZING. 18 g 3 4 Active Diclofenac Sodium 1 % External Gel (Voltaren) Apply topically to affected area 4 times a day as needed for Pain. Apply to left knee 100 g 5 4 Active Vitamin D3 1.25 MG (56453 UT) Oral Capsule Take 1 Capsule by mouth once a week. 12 Capsule 4 04/16/19 25 Active Potassium Chloride Bhavana ER 10 MEQ Oral Tablet Extended Release Take one tablet by mouth on days taking 40 mg of furosemide and take two tablets by mouth on days taking 60 mg of furosemide. 180 Tablet 1 4 01/17/20 24 Discontinu ed(Refill) documented as of this encounter (statuses as of 01/19/2024) Active Problems Problem Noted Date Diagnosed Date [...] rinse after steroid. 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 * Telephone Encounter - Agnes Saavedra DO - 01/17/2024 1:44 PM EDT Please call patient: Her vitamin D level remains low. I am sending in a prescription for vitamin D that she will take once week to help bring her levels back up. I will send her a letter with the remainder of her results. documented in this encounter Plan of Treatment Upcoming Encounters Date Type Department Care Team (Late st Contact Info) Description 02/13/2024 9:40 AM EST Anticoagulation Pharmacy, [address] [place] [address] [place] [address] 02/15/2024 10:30 AM EST Cardiac Studies Cardiac Studies [address] [place] [address] 02/15/2024 12:30 PM EST Imaging Radiology [address] [place] [address] 03/11/2024 11:00 AM EST Office Visit Dermatology [address] [place] [address] Stacey Hathaway PA-C [address] [place] [address] [place] [address] 07/16/2024 8:50 AM EDT Office Visit Family Medicine [address] [place] [phone] Agnes Saavedra [address] [place] [address] 09/09/2024 10:30 AM EDT Nurse Only Ancillary [address] [place] [address] [place], Nurse Annual [address] [place] [address] 09/24/2024 2:00 PM EDT Office Visit Cardiology [address] [place] [address] Price De PA-C [address] [place] [address] Scheduled Procedures Name Priority Associated Diagnoses Date/Ti me COLONOSCOPY FLEXIBLE PROXIMA L DIAGNOSTIC Recall Encounter for screening colonoscopy [facility] Maintenance Due Date Last Done Comments DXA Scan 1945 Pneumococcal Vaccine: 65+ Years (1 of 2 - PCV) 1951 Alpha-1 Antitrypsin 1965 Zoster Vaccines (1 of 2) 1997 COVID-19 Vaccine (1 - season) 2023 Influenza Vaccine (FLU shot) (#1) 2023 CKD PHOS USE SMARTSET 34174 12/31/202312/10, 06/10/2019, 04/12/2018 Albumin/Creatinine Ratio 04/26/2024 024, 05/26/2022, 04/26/2021 GFR 07/16/2024 01/16/2024, 11/09, 06/07/2023, Additional history exists Adult Wellness Visit 09/05/2024 09/06/2023, 08/31/19 23 Depression Screening 09/05/2024 09/06/2023, 09/06/19 24 O2 ASSESSMENT COMPLETED IN PAST YEAR FOR COPD 11/27/2024 11/28/2023 CKD HGB USE SMARTSET 85310 01/15/202501/15, 04/26/2023, 04/26/2023, Additional history exists TSH [...] filedocumented as of this encounter Care Teams Dining Car Waiter/Waitress Relationship Specialty Start Date End Date Agnes Saavedra DO [address] [place] [address] [place] [phone] PCP - General Internal Medicine 04/26/23 documented as of this encounter
--- OUTSIDE RECORDS SUMMARY | 2024-06-14 13:34 | External Medical Summary ---
Author Name Unknown Address Unknown Organization K01:LABORATORY [facility] [place] - [address] [facility] [address] Laboratory Report Ordering Provider Test Date Status ZEYAD PRO 01/16/2024 09:03:00 Final Observation Date Value Abnormality Reference (Units ) Status BUN 01/16/2024 09:03:00 15 6-20 (mg/dL) Final Creatinine 01/16/2024 09:03:00 1.3 Above high normal 0.5-1.0 (mg/dL) Final Glomerular filtration rate/1.73 sq M.predicted [Volume Rate/Area] in Serum, Plasma or Blood by Creatinine-based formula (CKD-EPI) 01/16/2024 09:03:00 44 Below low normal >=60 (mL/min) Final eGFR is calculated based on the CKD-EPI 2020 equation. Sodium 01/16/2024 09:03:00 139 135-146 (m mol/L) Final Potassium 01/16/2024 09:03:00 5.0 3.5-5.1 (m mol/L) Final Cl 01/16/2024 09:03:00 102 98-107 (mm ol/L) Final CO2 01/16/2024 09:03:00 26 22-32 (mmo l/L) Final Anion gap 01/16/2024 09:03:00 11 7-15 (mmol /L) Final Glucose 01/16/2024 09:03:00 99 70-120 (mg /dL) Final Albumin 01/16/2024 09:03:00 4.0 3.8-5.0 (g /dL) Final AST (Aspartate aminotransferase) 01/16/2024 09:03:00 39 Above high normal 10-35 (U/L) Final Results may be falsely eleva melissa due to hemolysis. Alk Phos 01/16/2024 09:03:00 188 Above high normal 35 -130 (U/L) Final Bilirubin, Total 01/16/2024 09:03:00 0.7 <=1 .2 (mg/dL) Final Calcium 01/16/2024 09:03:00 9.7 8.4-10.2 ( mg/dL) Final Protein 01/16/2024 09:03:00 6.6 6.0-8.3 (g /dL) Final ALT (Alanine aminotransferase) 01/16/2024 09:03:00 31 10-35 (U/L) Wagner quick Performing Location LABORATORY [facility] [place] - [address] [facility] [address]
--- OUTSIDE RECORDS SUMMARY | 2024-06-14 13:34 | External Medical Summary | Summary of Care ---
Author Name Unknown Organization [facility] Address [address] [facility] [place] [address] Phone [phone] Care Team Providers Care Research Program Internship Name Role Phone SaavedraAgnes matthew Primary Care Provider [phone] Reason for Referral * Precert (Within 10 days (routine)) - Authorized Specialty Diagnoses / Procedures Referred By Contkia t Referred To Contact Radiology Diagnoses History of tobacco abuse Procedures CT CHEST LOW DOSE SCAN LUNG CANCER SCREEN INITIAL LUNG CANCER SCREENING PROGRAM REFERRAL Price De PA-C [address] [place] [address] Referral ID Status Reason Start Date Expiration Date V isits Requested Visits Authorized [id number] Authorized 01/16/2024 999 999 Reason for Visit * Reason Onset Date Comments Order Request 01/16/2024 Enroll pt in [facility] cancer screen program Encounter Details Date Type Department Care Team (Late st Contact Info) Description 01/16/2024 Telephone Cardiology [address] [place] [address] Price De PA-C [address] [place] [address] Order Request (Enroll pt in lung cancer sc... Allergies Active Allergy Reactions Criticality Noted Date [...] mouth every other day. 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 Test performed by Trudy WARPING MACHINE OPERATOR CPFT Diastolic dysfunction 08/01/2017 DIVERTICULOSIS OF [...] this encounter Patient Instructions * Patient Instructions* Jose A Beltre LPN - 01/16/2024 12:58 PM EDT Gali Simmons [id number] Benefits of Quitting Smoking Why should I quit smoking? Smoking is bad for you and bad for others around you. Smoking causes cancer, heart attacks, hardening of the arteries, bronchitis, emphysema, cough, shortness of breath, wrinkles, and premature aging. It stains teeth and fingers, irritates the eyes, furs the tongue, and causes bad breath. People are living longer today than their parents did, so it makes sense to work on staying healthy and independent. One of the best ways to do this is to quit smoking. Benefits of quitting smoking It takes time to reverse many years' worth of smoking damage to your body, but some benefits of quitting smoking begin immediately. For example, you're financially better off on day one. Your health starts to improve right away, too, because you remove a former constant source of irritation from your lungs. People may comment that you no longer cough. Your blood circulation is likely to improve, so your hands and feet may feel warmer. Your teeth, breath, and fingers are no longer a turn-off. Benefits that you're less aware of also begin to occur. These include better resistance to colds and respiratory infections, less likelihood of major heart and circulation problems, less risk of high blood pressure or stroke, and less risk of developing cancer. The following arguments are often presented by smokers as justifications for their continuing to smoke: "I have to sometime, so I might as well enjoy life until then." True, but as a smoker you're much more likely to of a heart attack or cancer - neither of whichare very pleasant ways to go. "I'm only hurting myself." True, if you don't count the heartache and grief you may cause your loved ones by your early or permanent disability, or the damage of your smoke to others. "Lots of people who smoke live to ripe old ages in perfect health." True, but this is rare. Nearly all smokers have significant health problems. "Smoking is one of my pleasures. I don't want to quit." Smoking is associated with pleasure because the nicotine in tobacco is an addictive drug. Your bodywill continue to crave a regular supply until you can overcome the habit. Smoking is always a disadvantage to your health and that of your loved ones. "It's my choice and I choose to smoke." True. It is your choice. In a survey of older former smokers, more than 90% quit on their own because they decided to do so. The main reasons they gave for quitting were wanting to stay healthy, following health care provider's advice, regaining control of their lives, and making a loved one happy . [place] Department of Health Quit Line [employer] Free Quitline 3-740 QUIT NOW ( ) Your insurance company may also have more information and helpful programs to help you quit. Some may even help cover some of the costs. For example, [facility] members can call to find out about their smoking cessation program and medication coverage. Developed by Lizeth Kulkarni MD, for [employer]. Published by [employer]. Last modified: 2005-08-19 Last reviewed: 2005-06-08 This content is reviewed periodically and is subject to change as new health information becomes available. The information is intended to inform and educate and is not a replacement for medical evaluation, advice, diagnosis or treatment by a healthcare professional. Adult Health Advisor 2006.4 Index Adult Health Advisor 2006.4 Credits Copyright 2006 [employer] and/or one of its subsidiaries. All Rights Reserved. documented in this encounter Miscellaneous Notes * Telephone Encounter - Jose A Beltre LPN - 01/16/2024 12:58 PM EDT Referral placed. * Telephone Encounter - Jose A Beltre LPN - 01/16/2024 12:58 PM EDT The following information was reviewed/discussed with the patient: Benefits & harms of screening Potential indications for follow-up testing, if/when necessary Risk of over-diagnosis, false positive findings, and radiation exposure Importance of cigarette smoking abstinence, if applicable Annual adherence to lung cancer screening Impact of comorbidities and ability or willingness to undergo diagnostic testing and/or treatment if something concerning is identified during screening. * Telephone Encounter - Mauro Weldon OSA - 01/16/2024 9:24 AM EDT I don't know if an order or something needs placed for this pt to get that scheduled? There is a specific person I believe that schedules these from an order. documented in this encounter Plan of Treatment Upcoming Encounters Date Type Department Care Team (Late st Contact Info) Description 02/13/2024 9:40 AM EST Anticoagulation Pharmacy, [address] [place] [address] [place] [address] 02/15/2024 10:30 AM EST Cardiac Studies Cardiac Studies [address] [place] [address] 02/15/2024 12:30 PM EST Imaging Radiology [address] [place] [address] 03/11/2024 11:00 AM EST Office Visit Dermatology [address] [place] [address] Stacey Hathaway PA-C [address] [place] [address] [place] [address] 07/16/2024 8:50 AM EDT Office Visit Family Medicine [address] [place] [phone] Agnes Saavedra DO [address] [place] [address] [place] [address] 09/09/2024 10:30 AM EDT Nurse Only Ancillary [address] [place] [address] Kristen, Nurse [address] [place] [address] 09/24/2024 2:00 PM EDT Office Visit Cardiology [address] [place] [address] Price De PA-C [address] [place] [address] Scheduled Orders Name Type Priority Associated Diagnoses Orde r Schedule CT CHEST LOW DOSE SCAN LUNG CANCER SCREEN INITIAL Medical Imaging Routine History of tobacco abuse Expected: 01/16/2024, Expires: 01/15/2026 Scheduled Procedures Name Priority Associated Diagnoses Date/Ti me COLONOSCOPY FLEXIBLE PROXIMA L DIAGNOSTIC Recall Encounter for screening colonoscopy Health Maintenance Due Date Last Done Comments DXA Scan 1945 Pneumococcal Vaccine: 65+ Years (1 of 2 - PCV) 1951 Alpha-1 Antitrypsin 1965 Zoster Vaccines (1 of 2) 1997 COVID-19 Vaccine (1 - season) 2023 Influenza Vaccine (FLU shot) (#1) 2023 CKD PHOS USE SMARTSET 58955 12/31/202312/10, 06/10/2019, 04/12/2018 Albumin/Creatinine Ratio 04/26/2024 024, 05/26/2022, 04/26/2021 CKD HGB USE SMARTSET 37017 04/26/202404/26, 04/26/2023, 12/30/2022, Additional history exists GFR [...] as of this encounter Visit Diagnoses Diagnosis History of tobacco abuse- Primary Personal history of tobacco use, presenting hazards to health documented in this encounter Care Teams Research Program Internship Relationship Specialty Start Date End Date Agnes Saavedra DO [address] [place] [address] [place] [address] PCP - General Internal Medicine 04/26/23 documented as of this encounter
--- OUTSIDE RECORDS SUMMARY | 2024-06-14 13:34 | External Medical Summary | Summary of Care ---
Author Name Unknown Organization [facility] Address [address] [facility] [place] [address] Phone [phone] Care Team Providers Care Addressing Machine Operator Name Role Phone Jammie Saavedrathony Gonsalez Primary Care Provider [phone] Encounter Details Date Type Department Care Team (Late st Contact Info) Description 02/07/2024 Orders Only Cardiology, [facility] [address] [place] [address] Price De PA-C [address] [facility] [place] [address] Allergies Active Allergy Reactions Criticality Noted Date Comments Amoxicillin 04/13/2022 Severe itching Sulfamethoxazole-Trimethopri m 06/26/2018 Affected Kidneys Cephalexin 07/22/2020 Redness and flushing, diarrhea documented as of this encounter (statuses as of 02/07/2024) Medications Medication Sig Dispensed Refills Start Date End Date Status CYANOCOBALAMIN (VITAMIN B-12) 100 MCG Tablet Take 1 Tablet by mouth in the morning. Active Vitamin C 500 MG Oral Tablet (Ascorbic Acid) Take 1 Tablet by mouth every other day. 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 12 Capsule 4 04/16/19 25 Active Potassium Chloride Bhavana ER 10 MEQ Oral Tablet Extended Release Take 1 Tablet by mouth in the morning. 90 Tablet 3 4 Active Anoro Ellipta 62.5-25 MCG/ACT Inhalation Aerosol Powder Breath Activated (umeclidinium-vilan terol)Indications:C OPD, group B, by GOLD 2017 classification ([facility]) INHALE ONE PUFF BY MOUTH IN THE MORNING 180 Each 1 4 Active documented as of this encounter (statuses as of 02/07/2024) Active Problems Problem Noted Date Diagnosed Date [...] rinse after steroid. Test performed by Trudy DINING HOST CPFT Diastolic dysfunction 08/01/2017 DIVERTICULOSIS OF COLON Family history of colon cancer Gastroesophageal reflux disease without esophagi tis GENERAL OSTEOARTHROSIS Sciatica Carpal tunnel syndrome documented as of this encounter (statuses as of 02/07/2024) Resolved Problems Problem Noted Date Diagnosed Date [...] as of this encounter (statuses as of 02/07/2024) Immunizations Name Administration Dates Next Due TDAP [...] Description 02/12/2024 11:15 AM EST Imaging Radiology [address] [place] [address] 02/13/2024 9:40 AM EST Anticoagulation Pharmacy, [address] [place] [address] [place] [address] 02/15/2024 10:30 AM EST Cardiac Studies Cardiac Studies [address] [place] [address] 02/16/2024 12:30 PM EST Imaging Radiology [address] [place] [address] 03/11/2024 11:00 AM EST Office Visit Dermatology [address] [place] [address] Stacey Hathaway PA-C [address] [place] [address] [place] [address] 07/16/2024 8:50 AM EDT Office Visit Family Medicine [address] [place] [phone] Agnes Saavedra DO [address] [place] [address] [place] [address] 09/09/2024 10:30 AM EDT Nurse Only Ancillary [address] [place] [address] [place], Nurse Annual Wellness [address] [place] [address] [place] [address] 09/24/2024 2:00 PM EDT Office Visit Cardiology [address] [place] [address] Price De PA-C [address] [place] [address] Scheduled Procedures Name Priority Associated Diagnoses Date/Ti [...] shot) (#1) 2023 CKD PHOS USE SMARTSET 26274 12/31/202312/10, 06/10/2019, 04/12/2018 Albumin/Creatinine Ratio 04/26/2024 024, 05/26/2022, 04/26/2021 GFR 08/06/2024 02/06/2024, 10/0 11/2023, 11/28/2023, Additional history exists Adult Wellness Visit 09/05/2024 09/06/2023, 08/31/19 23 Depression Screening 09/05/2024 09/06/2023, 09/06/19 24 O2 ASSESSMENT COMPLETED IN PAST YEAR FOR COPD 11/27/2024 11/28/2023 TSH 01/15/2025 01/16/2024, 02/11/2023, 04/26/2023, Additional history exists CKD HGB USE SMARTSET 58203 02/05/202502/05, 02/06/2024, 01/16/2024, Additional history exists DTap/Tdap [...] filedocumented as of this encounter Care Teams Addressing Machine Operator Relationship Specialty Start Date End Date Agnes Saavedra DO [address] [place] [address] [place] [address] PCP - General Internal Medicine 04/26/23 documented as of this encounter
--- OUTSIDE RECORDS SUMMARY | 2024-06-14 13:34 | External Medical Summary | Summary of Care ---
Author Name Unknown Organization [facility] Address [address] [facility] [place] [address] Phone [phone] Care Team Providers Care Warehouse Stocker Name Role Phone Jammie Saavedrathony Barrientosstiven MCCOY Primary Care Provider [phone] Reason for Visit * Reason Comments Follow Up 7 1/2 month follow u p. Dizziness when looking up a few times for about 20 seconds. SOB ongoing but no worse then prior. Denies chest pain, edema and palpitations. Encounter Details Date Type Department Care Team (Latest Contact Info) Description 01/16/2024 8:30 AM EDT Office Visit Cardiology [address] [place] [address] Price De PA-C [address] [place] [address] Chronic diastolic congestive heart failure (HCC)*; COPD, group B, by GOLD 2017 classification (HCC); PAF (paroxysmal atrial fibrillation) (HCC); Tachy-joão syndrome (HCC); Encounter for monitoring amiodarone therapy; Bilateral carotid bruits Allergies Active Allergy Reactions Criticality Noted Date [...] (HCC),COPD, group B, by GOLD 2017 classification ([facility]) Use as directed 2 L/min(Oxygen) at bedtime [...] 24 Hour (toPROL XL)Indications:PAF (paroxysmal atrial fibrillation) ([facility]) TAKE ONE TABLET [...] (HCC),Atrial fibrillation, unspecified type (HCC),Anticoagulat ion 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,[facility] current use of anticoagulant therapy,Atrial fibrillation (HCC) Take 1-2 tablet by mouth daily as directed by anticoagulation clinic 90 Tablet 1 4 Active Anoro Ellipta 62.5-25 MCG/ACT Inhalation Aerosol Powder Breath Activated (umeclidinium-solitario nterol)Indications :COPD, group B, by GOLD 2017 classification ([facility]) [...] Capsule (Altace)Indication s:Stage 3a chronic kidney disease (HCC) TAKE ONE [...] s:COPD, group B, by GOLD 2017 classification ([facility]) INHALE 2 PUFFS EVERY 4 HOURS NEEDED SHORTNESS OF BREATH OR WHEEZING. 18 g 3 4 Active Diclofenac Sodium 1 % External Gel (Voltaren) Apply topically to affected area 4 times a day as needed for Pain. Apply to left knee 100 g 5 4 Active Diclofenac Sodium 1 % External Gel (Voltaren) Apply topically to affected area 4 times a day as needed for Pain. Apply to left knee 100 g 5 1 01/16/20 24 Discontinu ed(Refill) Albuterol Sulfate HFA 108 (90 Base) MCG/ACT Inhalation Aerosol SolutionIndication s:COPD, group B, by GOLD 2017 classification ([facility]) INHALE 2 PUFFS EVERY 4 HOURS NEEDED SHORTNESS OF BREATH OR WHEEZING. 18 g 3 3 01/16/20 24 Discontinu ed(Refill) documented as of this [...] failure 01/04 Presence of cardiac pacemaker 10/13/2017 Tachy-joão syndrome 10/10/2017 Pulmonary emphysema 09/11/2017 Overview: In Check dial performed to assess inhaler technique: 04/17/19. Name of inhaler Anoro Elliptical Pass: Yes at 35L/min. Encouraged to take deep breath and rinse after steroid. Test performed by Trudy DRAPERY SEWER HAND CPFT Diastolic dysfunction 08/01/2017 DIVERTICULOSIS OF COLON [...] on file documented as of this encounter Last Filed Vital Signs Vital Sign Reading Time Taken Comments Blood Pressure 110/66 01/16/2024 8:24 AM EDT Pulse 68 01/16/2024 8:24 AM EDT Temperature - - Respiratory Rate 16 01/16/2024 8:24 AM EDT Oxygen Saturation - - Inhaled Oxygen Concentration - - Weight 92.5 kg (203 lb 14.4 oz) 01/16/2024 8:24 AM EDT Height - - Body Mass Index 37.29 09/06/2023 11:41 AM EDT documented in this encounter Progress Notes * Price De PA-C - 01/16/2024 8:30 AM EDT History of Present Illness: Gali Simmons is a 78 year old female here today for cardiology follow-up evaluation. Feeling OK Over did it yesterday doing chores around the house. Requests a refill of albuterol which definitely helps the dyspnea and wheezing and a refill of the diclofenac gel for the knee pain. 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 Supplemental oxygen utilized at night, sometimes during the day she feels as though she needs it. Chronic stable cough since she quit smoking in March 2021. No hemoptysis. Elected not to undergo left knee replacement and thus did not proceed with the requested preoperative cardiac testing. No chest pain. No tachypalpitations. Stable two pillow orthopnea. No PND. No peripheral edema. Weight is down 3 pounds from last evaluation in this office Dizziness occurs only when looking up a certain way. No near syncope or syncope. No epistaxis, melena, hematochezia, or hematuria. 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 GERD. Hiatal hernia Sciatica Vertigo Carpal tunnel syndrome Tubal ligation Hospitalized at [facility] March 13, 2021 to March 26, 2021 with COVID pneumonia. Unvaccinated. Amlodipine 2.5 mg/day discontinued due to hypotension on discharge. Hospitalized at [facility] in April 2021 with respiratory insufficiency secondary to COVID 19 infectionand acute decompensated diastolic heart failure. Family History: Mother had a history of colon cancer, passing at the age of 81 with a myocardial infarction. Father with an HI at 69. Brother with an HI 53. Sister status post mitral valve surgery. Social History: Reformed smoker, quitting in March 2021 after smoking since the of 16. No significant alcohol use. No illegal drug use. . Two children. Daughter with Retired, working for [employer] in [place] in the [employer] department. Resides in [place] Complete review of systems: Glasses. Status post cataract extractions. Floaters. GERD. Reflux. Hiatal hernia. History of colonic polyps. Partial colectomy for diverticulitis. Sciatica. Osteoarthritis. Knee pain. Diverticulosis. Carpal tunnel status post release. Complete review of systems is otherwise as stated above, negative, noncontributory. Review of patient's allergies indicates: Allergen Reactions Amoxicillin Severe itching Bactrim [Sulfamethoxazole-Trimethoprim] Affected Kidneys Cephalexin Redness and flushing, diarrhea Current Outpatient Medications Medication Sig Dispense Refill [...] day on Monday, Monday, and Monday only. Levothyroxine Sodium 75 MCG Oral Tablet (Levoxyl) take 1 tablet in the morning at least 30 minutes before breakfast or other medications. 90 Tablet 3 Warfarin Sodium 2 MG Oral Tablet (Coumadin) Take 1-2 tablet by mouth daily as directed by anticoagulation clinic 90 Tablet 1 Anoro Ellipta 62.5-25 MCG/ACT Inhalation Aerosol Powder Breath Activated (umeclidinium-vilanterol) INHALE ONE PUFF BY MOUTH IN THE MORNING 180 Each 1 Potassium Chloride Bhavana ER 10 MEQ Oral Tablet Extended Release Take one tablet by mouth on days taking 40 mg of furosemide and take two tablets by mouth on days taking 60 mg of furosemide. 180 Tablet1 Fluticasone Propionate 50 MCG/ACT Nasal Suspension (Flonase) 2 sprays each nostril daily 48 g 1 Famotidine 20 MG Oral Tablet (Pepcid) TAKE ONE TABLET BY MOUTH EVERY DAY 90 Tablet 1 Sertraline HCl 50 MG Oral Tablet (Zoloft) Take 1 Tablet by mouth in the morning. 30 Tablet 5 Omeprazole 40 MG Oral Capsule Delayed Release [...] Apply to left knee 100 g 5 No current facility-administered medications for this visit. OBJECTIVE/PHYSICAL EXAMINATION: BP 110/66 | Pulse 68 | Resp 16 | Wt 92.5 kg (203 lb 14.4 oz) | BMI 37.29 kg/m | BSA 2.01 m General: A&Ox3. HENT: Normocephalic. Atraumatic. Eyes: PER. Conjunctiva pink, sclera clear. Neck: Bilateral carotid bruits (versus transmitted systolic murmur). No JVD. Heart: Distant heart sounds. RRR, 66 bpm. Grade II/ systolic ejection murmur of aortic stenosis. Lungs: Diminished. Decreased. Diffuse expiratory wheezing. Abdomen: +BS. Soft. Nontender. No masses or organomegaly. Extremities: No edema. No clubbing. No cyanosis. Limited neurological examination is without focal deficits. Pulses: radial=2/4 on the right and 0/4 on the left, posterior tibial=0/4. Data: September 2017 Lexiscan ([facility], Dr. Arenas): Lexiscan nuclear stress test negative for inducible ischemia. Normal left ventricular systolic function with a calculated ejection fraction of 60%. Uncontrolled hypertension. November 2019 Carotid Duplex: Right carotid artery duplex examination indicates evidence of less than50% stenosis of the internal carotid artery. Left carotid artery duplex examination indicates evidence of less than 50% stenosis of the internal carotid artery. August 26, 2021 TTE Interpretation Summary (as per Dr. Arenas): The qualitative LV ejection fractionis 60-64% (normal). The LV wall thickness is mildly increased (concentric). The left atrium is moderately enlarged (42-48 ml/m^2). The left ventricular diastolic function is severely abnormal (grade III). The aortic valve has three leaflets. The aortic valve is mildly calcified. Mild aortic valve stenosis is present. Moderate tricuspid regurgitation is present. The estimated pulmonary artery systolic pressure is 40 mm Hg. Compared to study dated August 20, 2020, aortic valve indices are stable, mild pulmonary hypertension now present. April [address]: Emphysema. No acute abnormality. January 04, 2023 CXR: Left-sided dual lead cardiac pacer is stable. The lungs are clear. There isno pleural effusion or pneumothorax. The cardiomediastinal silhouette is within normal limits. November 02, 2023 device interrogation Appropriate function Remaining longevity: 7.4 years Time in AT / AF: 0 Atrial paced: 99.2% Ventricular paced: Less than 0.1% Results for orders placed or performed in visit on 11/28/23 LIPID PANEL WITH DIRECT LDL IF TG IS HIGH Result Value Ref Range Triglycerides 90 <=174 mg/dL Cholesterol 125 <200 mg/dL HDL Cholesterol 44 (L) >49 mg/dL Non-HDL Cholesterol 81 <=159 mg/dL LDL Cholesterol 63 <=129 mg/dL ASSESSMENT: Diastolic congestive heart failure. Volume status: Compensated. 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 Plan as outlined below. RECOMMENDATIONS/PLAN: Laboratory work to recheck potassium, and for the monitoring of chronic amiodarone therapy. Refer for resting echocardiography, RE: aortic stenosis Refer for bilateral carotid duplex, RE: bruits, mild disease observed in 2019. Patient to remain tobacco free Recommend enrollment in the [employer] low dose CT lung cancer screening program. ? Future addition of nebulizer treatments Cardiology follow-up with the above, routinely in 6 months, or as needed. ER with emergencies. Price De PA-C Department of Cardiology I spent a total of 30-39 minutes (exact time 31 mins) on the date of service in preparation, delivery, and documentation of the care provided to Gali Simmons excluding any time spent in the performance of separately billed services. This visit involved medical care services related to at least one serious condition or complex condition requiring ongoing care. This chart was completed in part utilizing [employer] Speech Voice Recognition Software. Grammatical errors, random word insertions, prounoun errors, and incomplete sentences are an occasional consequence of this system due to software l imitations, ambient noise, and hardware issues. Any formal questions or concerns about the content,text, or information contained within the body of this dictation should be directly addressed to the provider for clarification. documented in this encounter Nursing Notes * Jose A Beltre LPN - 01/16/2024 8:23 AM EDT Patient identified by full name and date of Chief Complaint Patient presents with Follow Up 7 1/2 month follow up. Dizziness when looking up a few times for about 20 seconds. SOB ongoing but no worse then prior. Denies chest pain, edema and palpitations. Examination Room: 4 Name: Gali Simmons Date of : (1945). Reason for Visit: Follow up Interim Hospitalization(s): Denies Problems/Concerns: See chief complaint Chest Pain/SOB: See chief complaint [facility] Discussed: Not applicable [facility] is a way you can talk to your provider online through e-mail. Would you like to sign up? I can activate it for you? DECLINES Patient was instructed to not get up on the exam table until directed and assisted by their provider; patient is to remain seated in the chair/ wheelchair/ exam table for fall prevention and safety reasons. Patient is aware to have assistance to step down off exam table with personnel. Patient voiced full comprehension of instructions. documented in this encounter Plan of Treatment Upcoming Encounters Date Type Department Care Team (Late st Contact Info) Description 02/13/2024 9:40 AM EST Anticoagulation Pharmacy, [address] [place] [address] [place] [address] 02/15/2024 10:30 AM EST Cardiac Studies Cardiac Studies [address] [place] [address] 02/15/2024 12:30 PM EST Imaging Radiology [address] [place] [address] 03/11/2024 11:00 AM EST Office Visit Dermatology [address] [place] [address] Stacey Hathaway PA-C [address] [place] [address] [place] [address] 07/16/2024 8:50 AM EDT Office Visit Family Medicine [address] [place] [phone] Agnes Saavedra [address] [place] [address] 09/09/2024 10:30 AM EDT Nurse Only Ancillary [address] [place] [address] [place], Nurse Annual [address] [place] [address] 09/24/2024 2:00 PM EDT Office Visit Cardiology [address] [place] [address] Price De PA-C [address] [place] [address] Pending Results Name Type Priority Associated Diagnoses Date /Time TSH Lab Routine Encounter for monitoring amiodarone therapy 01/16/2024 9:03 AM EDT COMPREHENSIVE METABOLIC PANEL Lab Routine Encounter for monitoring amiodarone therapy 01/16/2024 9:03 AM EDT CBC Lab Routine PAF (paroxysmal atrial fibrillation) (HCC) 01/16/2024 9:03 AM EDT Scheduled Orders Name Type Priority Associated Diagnoses Orde r Schedule TSH Lab Routine Encounter for monitoring amiodarone therapy Expected: 01/16/2024, Expires: 01/15/2025 COMPREHENSIVE METABOLIC PANEL Lab Routine Encounter for monitoring amiodarone therapy Expected: 01/16/2024, Expires: 01/15/2025 CBC Lab Routine PAF (paroxysmal atrial fibrillation) (HCC) Expected: 01/16/2024, Expires: 01/15/2025 VASC DUPLEX CAROTID BILAT Medical Imaging Routine Bilateral carotid bruits Expected: 01/23/2024, Expires: 02/15/2025 Scheduled Procedures Name Priority Associated Diagnoses Date/Ti me COLONOSCOPY FLEXIBLE PROXIMA L DIAGNOSTIC Recall Encounter for screening colonoscopy Health Maintenance Due Date Last Done Comments DXA Scan 1945 Pneumococcal Vaccine: 65+ Years (1 of 2 - PCV) 1951 Alpha-1 Antitrypsin 1965 Zoster Vaccines (1 of 2) 1997 COVID-19 Vaccine ( - season) 2023 Influenza Vaccine (FLU shot) (#1) 2023 CKD PHOS USE SMARTSET 68362 12/31/202312/10, 06/10/2019, 04/12/2018 Albumin/Creatinine Ratio 04/26/2024 024, 05/26/2022, 04/26/2021 CKD HGB USE SMARTSET 34866 04/26/202404/26, 04/26/2023, 12/30/2022, Additional history exists GFR [...] as of this encounter Visit Diagnoses Diagnosis Chronic diastolic congestive heart failure (HCC)- Primary Chronic diastolic heart failure COPD, group B, by GOLD 2017 classification (HCC) PAF (paroxysmal atrial fibrillation) (HCC) Atrial fibrillation Tachy-joão syndrome (HCC) Sinoatrial node dysfunction Encounter for monitoring amiodarone therapy Encounter for therapeutic drug monitoring Bilateral carotid bruits documented in this encounter Care Teams Warehouse Stocker Relationship Specialty Start Date End Date Agnes Saavedra DO [address] [place] [address] [place] [address] PCP - General Internal Medicine 04/26/23 documented as of this encounter"
--- OUTSIDE RECORDS SUMMARY | 2024-06-14 13:34 | External Medical Summary ---
Author Name Unknown Address Unknown Organization [id number]:LABORATORY [facility] [place] - [address] [place] [address] Laboratory Report Ordering Provider Test Date Status MERLEVIVIEN 01/16/2024 09:03:00 Final Observation Date Value Abnormality Reference (Units ) Status Parathyrin.intact [Mass/volume] in Serum or Plasma 01/16/2024 09:03:00 98 Above high normal 15-65 (pg/mL) Final Performing Location [facility] [place] - [address] [place] [address]
--- OUTSIDE RECORDS SUMMARY | 2024-06-14 13:34 | External Medical Summary ---
Author Name Unknown Address Unknown Organization [id number]:[facility]ORATORY [facility] [place] - [address] [place] [address] Laboratory Report Ordering Provider Test Date Status ZEYAD PRO 01/16/2024 09:03:00 Final Observation Date Value Abnormality Reference (Units ) Status TSH 01/16/2024 09:03:00 1.12 0.27-4.20 (uIU/mL) Final Performing Location LABORATORY [facility] - [address] [place] [address]
--- OUTSIDE RECORDS SUMMARY | 2024-06-14 13:34 | External Medical Summary | Summary of Care ---
Author Name Unknown Organization [facility] Address [address] [place] [address] Phone [phone] Care Team Providers Care President Name Role Phone Agnes Saavedra DO Primary Care Provider Reason for Visit * Reason Onset Date Comments Medication Refill 02/06/2024 Encounter Details Date Type Department Care Team (Late st Contact Info) Description 02/06/2024 Refill Family Medicine [address] [place] [phone] Agnes Saavedra DO [address] [place] [address] [place] [address] COPD, group B, by GOLD 2017 classification ([facility]) Allergies Active Allergy [...] (HCC),Atrial fibrillation, unspecified type (HCC),Anticoagulat ion 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,[facility] current use of anticoagulant therapy,Atrial fibrillation (HCC) [...] s:COPD, group B, by GOLD 2017 classification ([facility]) INHALE 2 PUFFS EVERY 4 HOURS NEEDED SHORTNESS OF BREATH OR WHEEZING. 18 g 3 4 Active Diclofenac Sodium 1 % External Gel (Voltaren) Apply topically to affected area 4 times a day as needed for Pain. Apply to left knee 100 g 5 4 Active Vitamin D3 1.25 MG (41004 UT) Oral Capsule Take 1 Capsule by [...] THE MORNING 180 Each 1 4 Active Anoro Ellipta 62.5-25 MCG/ACT Inhalation Aerosol Powder Breath Activated (umeclidinium-solitario nterol)Indications :COPD, group B, by GOLD 2017 classification (HCC) INHALE ONE PUFF BY MOUTH IN THE MORNING 180 Each 1 4 02/06/20 24 Discontinu ed(Refill) documented as of this [...] rinse after steroid. Test performed by Trudy CORRESPONDENCE REPRESENTATIVE CPFT Diastolic dysfunction 08/01/2017 DIVERTICULOSIS OF COLON [...] encounter Miscellaneous Notes * Telephone Encounter - Darcy Roberts CRNP - 02/06/2024 1:45 PM EDT Signed Prescriptions: Disp Refills Anoro Ellipta 62.5-25 MCG/ACT Inhalation A*180 Ea*1 Sig: INHALE ONE PUFF BY MOUTH IN THE MORNING Authorizing Provider: DARCY ROBERTS * Telephone Encounter - Soumya Cardona RN - 02/06/2024 1:42 PM EDTPending Prescriptions: Disp Refills Anoro Ellipta 62.5-25 MCG/ACT Inhalation A*180 Ea*1 Sig: INHALE ONE PUFF BY MOUTH IN THE MORNING * Telephone Encounter - Sunshine Taylor OSA - 02/06/2024 10:35 AM EDT Did you pend patient's preferred pharmacy and medication before forwarding?yes Pharmacy: [id number] [address] [facility] Pending Prescriptions: Disp Refills Anoro Ellipta 62.5-25 MCG/ACT Inhalation *180 Ea*1 Sig: INHALE ONE PUFF BY MOUTH IN THE MORNING Last Visit: 11/28/2023 (in office), 04/01/2021 (telemedicine) Next Visit: 07/16/2024 If no future appointments scheduled, and last appointment is greater than a year ago, please schedule patient for a follow-up appointment Last date the medication was ordered: 08.10.23 Is this request for a controlled substance?No Urine Drug Screen:No results found. However, due to the size of the patient record, not all encounters were searched. Please check Results Review for a complete set of results. Patient Phone Numbers mobile [phone] Labs: Lab Results Component Value Date/Time CREAT 1.3 (H) 01/16/2024 09:03 AM CREAT 1.00 03/13/2021 12:00 AM CREAT 0.9 08/14/2019 10:21 AM POTASSIUM 5.0 01/16/2024 09:03 AM POTASSIUM 4.0 03/13/2021 12:00 AM POTASSIUM 3.9 08/14/2019 10:21 AM TSH 1.12 01/16/2024 09:03 AM TSH 1.190 03/13/2021 12:00 AM TSH 6.32 (H) 10/14/2019 04:21 PM TSH 1.13 06/20/1996 03:09 PM LDL 63 11/28/2023 03:45 PM LDL 95 10/14/2019 04:21 PM LDL NOT APPLICABLE 10/14/2019 04:21 PM ALT 31 01/16/2024 09:03 AM ALT 14 08/14/2019 10:21 AM HGBA1C 5.9 (H) 07/22/2020 03:28 PM HGBA1C 6.0 (H) 06/10/2019 01:27 PM documented in this encounter Plan of Treatment Upcoming Encounters Date Type Department Care Team (Late st Contact Info) Description 02/12/2024 11:15 AM EST Imaging Radiology [address] [place] [address] 02/13/2024 9:40 AM EST Anticoagulation Pharmacy, [address] [place] [address] [place] [address] 02/15/2024 10:30 AM EST Cardiac Studies Cardiac Studies [address] [place] [address] 02/16/2024 12:30 PM EST Imaging Radiology [address] [place] [address] 03/11/2024 11:00 AM EST Office Visit Dermatology [address] [place] [address] Stacey Hathaway PA-C [address] [place] [address] [place] [address] 07/16/2024 8:50 AM EDT Office Visit Family Medicine [address] [place] [phone] Agnes Saavedra, [address] [place] [address] 09/09/2024 10:30 AM EDT Nurse Only Ancillary [address] [place] [address] [place], Nurse Annual Wellness [address] [place] [address] [place] [address] 09/24/2024 2:00 PM EDT Office Visit Cardiology [address] [place] [address] Price De PA-C [address] [place] [address] Scheduled Procedures Name Priority Associated Diagnoses Date/Ti me COLONOSCOPY FLEXIBLE PROXIMA L DIAGNOSTIC Recall Encounter for screening colonoscopy Health Maintenance Due Date Last Done Comments DXA Scan 1945 Pneumococcal Vaccine: 65+ Years (1 of 2 - PCV) 1951 Alpha-1 Antitrypsin 1965 Zoster Vaccines (1 of 2) 1997 COVID-19 Vaccine (1 - season) 2023 Influenza Vaccine (FLU shot) (#1) 2023 CKD PHOS USE SMARTSET 40000 12/31/202312/10, 06/10/2019, 04/12/2018 Albumin/Creatinine Ratio 04/26/2024 024, 05/26/2022, 04/26/2021 GFR 07/16/2024 01/16/2024, 11/09, 06/07/2023, Additional history exists Adult Wellness Visit 09/05/2024 09/06/2023, 08/31/19 23 Depression Screening 09/05/2024 09/06/2023, 09/06/19 24 O2 ASSESSMENT COMPLETED IN PAST YEAR FOR COPD 11/27/2024 11/28/2023 CKD HGB USE SMARTSET 80959 01/15/202501/15, 04/26/2023, 04/26/2023, Additional history exists TSH [...] as of this encounter Visit Diagnoses Diagnosis COPD, group B, by GOLD 2017 classification (HCC) documented in this encounter Care Teams President Relationship Specialty Start Date End Date Agnes Saavedra DO [address] [place] [address] [place] [address] PCP - General Internal Medicine 04/26/23 documented as of this encounter
--- OUTSIDE RECORDS SUMMARY | 2024-06-14 13:34 | External Medical Summary ---
Author Name Unknown Address Unknown Organization K01:[place] [place] [facility] [place] [address] Laboratory Report Ordering Provider Test Date Status ZEYAD PRO 02/06/2024 11:49:58 Final Observation Date Value Abnormality Reference (Units ) Status WBC, Total 02/06/2024 11:49:58 12.29 Above high normal 4.00-10.80 (K/uL) Final RBC 02/06/2024 11:49:58 4.25 3.85-5.15 (M/uL) Final Hemoglobin 02/06/2024 11:49:58 12.6 12.0-15.3 (g/dL) Final HCT 02/06/2024 11:49:58 42.0 36.0-45.2 (%) Final MCV 02/06/2024 11:49:58 98.8 81.5-97.5 (fL) Final MCH 02/06/2024 11:49:58 29.6 27.0-34.0 (pg) Final MCHC 02/06/2024 11:49:58 30.0 32.0-36.0 (g/dL) Final RDW 02/06/2024 11:49:58 14.7 11.5-15.5 (%) Final Platelets 02/06/2024 11:49:58 311 140-400 (K/uL) Final MPV 02/06/2024 11:49:58 11.6 6.6-11.1 (fL) Final Nucleated erythrocytes/100 leukocytes [Ratio] in Blood by Automated count 02/06/2024 11:49:58 0 <=0 (/100 WBCs) Final Performing Location [facility] [place] [address] [place] [address]
--- OUTSIDE RECORDS SUMMARY | 2024-06-14 13:34 | External Medical Summary | Summary of Care ---
Author Name Unknown Organization [facility] Address [address] [place] [address] Phone [phone] Care Team Providers Care Lead Systems Architect Name Role Phone SaavedraAgnes matthew Primary Care Provider [phone] Encounter Details Date Type Department Care Team (Late st Contact Info) Description 01/22/2024 Orders Only PATIENT PORTAL DO NOT DELETE THIS DEPT USED BY [place] [place] [id number] Allergies Active Allergy Reactions Criticality Noted Date Comments Amoxicillin 04/13/2022 Severe itching Sulfamethoxazole-Trimethopri m 06/26/2018 Affected Kidneys Cephalexin 07/22/2020 Redness and flushing, diarrhea documented as of this encounter (statuses as of 01/22/2024) Medications Medication Sig Dispensed Refills Start Date End Date Status CYANOCOBALAMIN (VITAMIN B-12) 100 MCG Tablet Take 1 Tablet by mouth in the morning. Active Vitamin C 500 MG Oral Tablet (Ascorbic Acid) Take 1 Tablet by mouth every other day. 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 12 Capsule 4 04/16/19 25 Active Potassium Chloride Bhavana ER 10 MEQ Oral Tablet Extended Release Take 1 Tablet by mouth in the morning. 90 Tablet 3 4 Active documented as of this encounter (statuses as of 01/22/2024) Active Problems Problem Noted Date Diagnosed Date [...] failure 01/04 Presence of cardiac pacemaker 10/13/2017 Tachy-sivlestre syndrome 10/10/2017 Pulmonary emphysema 09/11/2017 Overview: In Check dial performed to assess inhaler technique: 04/17/19. Name of inhaler Anoro Elliptical Pass: Yes at 35L/min. Encouraged to take deep breath and rinse after steroid. Test performed by Trudy VESSEL ENGINEER CPFT Diastolic dysfunction 08/01/2017 DIVERTICULOSIS OF COLON Family history of colon cancer Gastroesophageal reflux disease without esophagi tis GENERAL OSTEOARTHROSIS Sciatica Carpal tunnel syndrome documented as of this encounter (statuses as of 01/22/2024) Resolved Problems Problem Noted Date Diagnosed Date [...] as of this encounter (statuses as of 01/22/2024) Immunizations Name Administration Dates Next Due TDAP [...] Description 02/12/2024 11:15 AM EST Imaging Radiology [address] [place] [address] 02/13/2024 9:40 AM EST Anticoagulation Pharmacy, [address] [place] [address] [place] [address] 02/15/2024 10:30 AM EST Cardiac Studies Cardiac Studies [address] [place] [address] 02/15/2024 12:30 PM EST Imaging Radiology [address] [place] [address] 03/11/2024 11:00 AM EST Office Visit Dermatology [address] [place] [address] Stacey Hathaway PA-C [address] [place] [address] [place] [address] 07/16/2024 8:50 AM EDT Office Visit Family Medicine [address] [place] [phone] Agnes Saavedra, [address] [place] [address] 09/09/2024 10:30 AM EDT Nurse Only Ancillary [address] [place] [address] [place], Nurse Annual Wellness [address] [place] [address] [place] [address] 09/24/2024 2:00 PM EDT Office Visit Cardiology [address] [place] [address] Price De PA-C [address] [place] [address] Scheduled Procedures Name Priority Associated Diagnoses Date/Ti me COLONOSCOPY FLEXIBLE PROXIMA L DIAGNOSTIC Recall Encounter for screening colonoscopy Health Maintenance Due Date Last Done Comments DXA Scan 1945 Pneumococcal Vaccine: 65+ Years (1 of 2 - PCV) 1951 Alpha-1 Antitrypsin 1965 Zoster Vaccines (1 of 2) 1997 COVID-19 Vaccine ( - season) 2023 Influenza Vaccine (FLU shot) (#1) 2023 CKD PHOS USE SMARTSET 83282 12/31/202312/10, 06/10/2019, 04/12/2018 Albumin/Creatinine Ratio 04/26/2024 024, 05/26/2022, 04/26/2021 GFR 07/16/2024 01/16/2024, 11/09, 06/07/2023, Additional history exists Adult Wellness Visit 09/05/2024 09/06/2023, 08/31/19 23 Depression Screening 09/05/2024 09/06/2023, 09/06/19 24 O2 ASSESSMENT COMPLETED IN PAST YEAR FOR COPD 11/27/2024 11/28/2023 CKD HGB USE SMARTSET 55146 01/15/202501/15, 04/26/2023, 04/26/2023, Additional history exists TSH [...] filedocumented as of this encounter Care Teams Lead Systems Architect Relationship Specialty Start Date End Date Agnes Saavedra DO [address] [place] [address] [place] [phone] PCP - General Internal Medicine 04/26/23 documented as of this encounter
--- OUTSIDE RECORDS SUMMARY | 2024-06-14 13:35 | External Medical Summary ---
Author Name Unknown Address Unknown Organization : Laboratory Report Ordering Provider Test Date Status KAYLEE CHIU 01/02/2024 14:28:56 Final Therapeutic ranges for non-o perative patients:
Prophylaxsis/treatment of DVT: (Range:2.0-3.0)
Treatment of pulmonary embolism:(Range:2.0-3.0)
Prevention of systemic embolism from:
-tissue heart valves
-acute myocardial infarction
-valvular heart disease
-atrial fibrillation
(Range: 2.0-3.0)
Mechanical prosthetic valves: (Range: 2.5-3.5) Observation Date Value Abnormality Reference (Units ) Status INR in Capillary blood by Coagulation assay 01/02/2024 14:28:56 2.2 (INR) Final Performing Location
--- OUTSIDE RECORDS SUMMARY | 2024-06-14 13:35 | External Medical Summary | Summary of Care ---
Author Name Unknown Organization [facility] Address [address] [place] [address] Phone [phone] Care Team Providers Care Manager Rail Name Role Phone SaavedraAgnes amtthew Primary Care Provider Reason for Visit * Reason Comments eRx-Medication Refill Encounter Details Date Type Department Care Team (Late st Contact Info) Description 01/04/2024 Refill Cardiology, [facility] [address] [place] [address] Price De PA-C [address] [place] [address] Acquired hypothyroidism Allergies Active Allergy Reactions Criticality Noted Date Comments Amoxicillin 04/13/2022 Severe itching Sulfamethoxazole-Trimethopri m 06/26/2018 Affected Kidneys Cephalexin 07/22/2020 Redness and flushing, diarrhea documented as of this encounter (statuses as of 01/05/2024) Medications Medication Sig Dispensed Refills Start Date End Date Status CYANOCOBALAMIN (VITAMIN B-12) 100 MCG Tablet Take 1 Tablet by mouth in the morning. Active Vitamin C 500 MG Oral Tablet (Ascorbic Acid) Take 1 Tablet by mouth every other day. Active Diclofenac Sodium 1 % External Gel (Voltaren) Apply topically to affected area 4 times a day as needed for Pain. 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) Use as directed 2 L/min(Oxygen) at bedtime [...] more if needed) 454 g 2 Active Albuterol Sulfate HFA 108 (90 Base) MCG/ACT Inhalation Aerosol SolutionIndications :COPD, group B, by GOLD 2017 classification ([facility]) INHALE 2 PUFFS EVERY 4 HOURS NEEDED SHORTNESS OF BREATH OR WHEEZING. 18 g 3 3 Active Metoprolol Succinate ER 25 MG Oral [...] ns:Paroxysmal atrial fibrillation (HCC),Atrial fibrillation, unspecified type ([facility]),Anticoagulati on 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,[facility] current use of anticoagulant therapy,Atrial fibrillation (HCC) Take 1-2 tablet by mouth daily as directed by anticoagulation clinic 90 Tablet 1 4 Active Anoro Ellipta 62.5-25 MCG/ACT Inhalation Aerosol Powder Breath Activated (umeclidinium-vilan terol)Indications:C OPD, group B, by GOLD 2017 classification ([facility]) INHALE ONE PUFF BY MOUTH IN THE [...] THE MORNING 90 Tablet 3 4 Active documented as of this encounter (statuses as of 01/05/2024) Active Problems Problem Noted Date Diagnosed Date [...] rinse after steroid. Test performed by Trudy SIGNAL FITTER CPFT Diastolic dysfunction 08/01/2017 DIVERTICULOSIS OF COLON Family history of colon cancer Gastroesophageal reflux disease without esophagi tis GENERAL OSTEOARTHROSIS Sciatica Carpal tunnel syndrome documented as of this encounter (statuses as of 01/05/2024) Resolved Problems Problem Noted Date Diagnosed Date [...] as of this encounter (statuses as of 01/05/2024) Immunizations Name Administration Dates Next Due TDAP [...] encounter Miscellaneous Notes * Telephone Encounter - Gypsy Gaytan RPh - 01/05/2024 11:08 AM EDTRefused Prescriptions: Disp Refills Levothyroxine Sodium 75 MCG Oral Tablet (L*90 Tab*0 Sig: take 1tablet in the morning at least 30 minutes before breakfast or other medications.Refused By: Bc GAYTAN for Refusal: Too soonReason for Refusal Comment: Year supply sent on 07/06/23--------- * Telephone Encounter - Gypsy Gaytan RPh - 01/05/2024 11:05 AM EDT Medication sent on 07/06/23 for 90 day supply with 3 refills Gypsy Rader, PharmD Clinical Pharmacist [facility] 01/05/2024, 11:07 AM documented in this encounter Plan of Treatment Upcoming Encounters Date Type Department Care Team (Late st Contact Info) Description 01/16/2024 8:30 AM EDT Office Visit Cardiology [address] [place] [address] Price De PA-C [address] [place] [address] 02/13/2024 9:40 AM EST Anticoagulation Pharmacy, [address] [place] [address] [place] [address] 03/11/2024 11:00 AM EST Office Visit Dermatology [address] [place] [address] Stacey Hathaway PA-C [address] [place] [address] [place] [address] 07/16/2024 8:50 AM EDT Office Visit Family Medicine [address] [place] [phone] Agnes Saavedra, [address] [place] [address] 09/09/2024 10:30 AM EDT Nurse Only Ancillary [address] [place] [address] [place], Nurse [address] [place] [address] Scheduled Procedures Name Priority Associated Diagnoses Date/Ti me COLONOSCOPY FLEXIBLE PROXIMA L DIAGNOSTIC Recall Encounter for screening colonoscopy Health Maintenance Due Date Last Done Comments DXA Scan 1945 Pneumococcal Vaccine: 65+ Years (1 of 2 - PCV) 1951 Alpha-1 Antitrypsin 1965 Zoster Vaccines (1 of 2) 1997 COVID-19 Vaccine (1 - season) 2023 Influenza Vaccine (FLU shot) (#1) 2023 CKD PHOS USE SMARTSET 96995 12/31/202312/10, 06/10/2019, 04/12/2018 Albumin/Creatinine Ratio 04/26/2024 024, 05/26/2022, 04/26/2021 CKD HGB USE SMARTSET 44110 04/26/202404/26, 04/26/2023, 12/30/2022, Additional history exists GFR [...] hypothyroidism documented in this encounter Care Teams Manager Rail Relationship Specialty Start Date End Date Agnes Saavdera DO [address] [place] [address] [place] [phone] PCP - General Internal Medicine 04/26/23 documented as of this encounter
--- OUTSIDE RECORDS SUMMARY | 2024-06-14 13:35 | External Medical Summary | Summary of Care ---
Author Name Unknown Organization [facility] Address [address] [place] [address] Phone [phone] Care Team Providers Care Leather Carver Name Role Phone SaavedraAgnes matthew Primary Care Provider [phone] Reason for Visit * Reason Comments Dosage Adjustment In Person (Anticoag Cl inic) Encounter Details Date Type Department Care Team (Latest Contact Info) Description 01/02/2024 2:30 PM EDT Anticoagulation Pharmacy, [address] [place] [address] [place] [address] Anticoagulation 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*; Paroxysmal atrial fibrillation (HCC) Allergies Active Allergy Reactions Criticality Noted Date Comments Amoxicillin 04/13/2022 Severe itching Sulfamethoxazole-Trimethopri m 06/26/2018 Affected Kidneys Cephalexin 07/22/2020 Redness and flushing, diarrhea documented as of this encounter (statuses as of 01/02/2024) Medications Medication Sig Dispensed Refills Start Date [...] 100 g 5 1 Active oxygen IN GASIndications:Clinical Rn anabelle diastolic congestive heart failure (HCC),COPD, group B, by GOLD 2017 classification ([facility]) Use as directed 2 L/min(Oxygen) [...] :COPD, group B, by GOLD 2017 classification ([facility]) INHALE 2 PUFFS EVERY 4 HOURS NEEDED SHORTNESS OF BREATH OR WHEEZING. 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 of anticoagulant therapy,Atrial fibrillation (HCC) Take 1-2 tablet by mouth daily as directed by anticoagulation clinic 90 Tablet 1 4 Active Anoro Ellipta 62.5-25 MCG/ACT Inhalation Aerosol Powder Breath Activated (umeclidinium-vilan terol)Indications:C OPD, group B, by GOLD 2017 classification ([facility]) INHALE ONE PUFF BY [...] Capsule (Altace)Indications :Stage 3a chronic kidney disease ([facility]) TAKE ONE CAPSULE BY MOUTH EVERY DAY [...] as of this encounter (statuses as of 01/02/2024) Active Problems Problem Noted Date Diagnosed Date [...] rinse after steroid. Test performed by Trudy DAMPENER CPFT Diastolic dysfunction 08/01/2017 DIVERTICULOSIS OF COLON Family history of colon cancer Gastroesophageal reflux disease without esophagi tis GENERAL OSTEOARTHROSIS Sciatica Carpal tunnel syndrome documented as of this encounter (statuses as of 01/02/2024) Resolved Problems Problem Noted Date Diagnosed Date Resolved Date Atrial fibrillation, unspecified type 01/18/2022 04/26/2023 CKD (chronic kidney disease), stage II 04/08/2021 03/24/2022 Overview: EGFR 69 Kidney disease, chronic, sta ge III (GFR 30-59 ml/min) 01/04/2018 11/23/2020 Prediabetes 07/18/2017 12/24/2020 Overview: Per Prediabetes protocol #1 Atrial fibrillation 07/13/2017 04/26/19 24 BENIGN NEOPLASM SKIN NOS 11/27/2002 08/ BENIGN NEOPLASM LG BOWEL documented as of this encounter (statuses as of 01/02/2024) Immunizations Name Administration Dates Next Due TDAP [...] this encounter Progress Notes * Elizabeth Macdonald, [facility] - 01/02/2024 2:24 PM EDT Medication Therapy Disease Management - Anticoagulation Patient: Gali Simmons | : 1945 Subjective Contacts Contact Date/Time Type Contact Phone/Fax 12/26/2023 05:13 AM EDT Vendor (Outgoing) Gali Simmons [phone] 12/30/2023 05:08 AM EDT Vendor (Outgoing) Gali Simmons [phone] 01/01/2024 05:13 AM EDT Vendor (Outgoing) Gali Simmons [phone] Patient-Reported Symptoms: Patient Findings Negatives: Signs/symptoms of thrombosis, Signs/symptoms of bleeding, Change in health, Change in alcohol use, Change in activity, Upcoming invasive procedure, Missed doses, Extra doses, Change in medications, Change in diet/appetite, Bruising Objective Current Warfarin Dose As of 01/02/2024 Warfarin maintenance plan: 2 mg (2 mg x 1) every Tue; 1 mg (2 mg x 0.5) all other days INR Result As of 01/02/2024 INR goal: 2.0-3.0 INR used for dosin.2 (01/02/2024) Assessment & Plan Warfarin Plan As of 01/02/2024 Full warfarin instructions: 2 mg every Tue; 1 mg all other days No change documented: Elizabeth Macdonald RPh Next INR check: 02/13/2024 Repeat PT/INR in 6 week(s) Weekly dose: [...] time spent by another provider/QHP. Elizabeth Macdonald RPh Clinical Pharmacist 01/02/2024, 2:24 PM documented in this encounter Plan of Treatment Upcoming Encounters Date Type Department Care Team (Late st Contact Info) Description 01/16/2024 8:30 AM EDT Office Visit Cardiology [address] [place] [address] Price De PA-C [address] [place] [address] 02/13/2024 9:40 AM EST Anticoagulation Pharmacy, [address] [place] [address] [place] [address] 03/11/2024 11:00 AM EST Office Visit Dermatology [address] [place] [address] Stacey Hathaway PA-C [address] [place] [address] [place] [address] 07/16/2024 8:50 AM EDT Office Visit Family Medicine [address] [place] [phone] Agnes Saavedra, [address] [place] [address] 09/09/2024 10:30 AM EDT Nurse Only Ancillary [address] [place] [address] [place], Nurse Annual Wellness [address] [place] [address] [place] [address] Scheduled Procedures Name Priority Associated Diagnoses Date/Ti me COLONOSCOPY FLEXIBLE PROXIMA L DIAGNOSTIC Recall Encounter for screening colonoscopy Health Maintenance Due Date Last Done Comments DXA Scan 1945 Pneumococcal Vaccine: 65+ Years (1 of 2 - PCV) 1951 Alpha-1 Antitrypsin 1965 Zoster Vaccines (1 of 2) 1997 COVID-19 Vaccine ( - season) 2023 Influenza Vaccine (FLU shot) (#1) 2023 CKD PHOS USE SMARTSET 17719 12/31/202312/10, 06/10/2019, 04/12/2018 Albumin/Creatinine Ratio 04/26/2024 024, 05/26/2022, 04/26/2021 CKD HGB USE SMARTSET 51197 04/26/202404/26, 04/26/2023, 12/30/2022, Additional history exists GFR [...] Comments INR FINGERSTICK, POINT OF CARE STAT 01/02/2024 2:28 PM EDT Paroxysmal atrial fibrillation (HCC) Anticoagulation 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 documented in this encounter Results * INR FINGERSTICK, POINT OF CARE (01/02/2024 2:28 PM EDT) Fingerstick INR 2.2 INR 2:30 PM EDT [facility] [place] [address] Blood 01/02/2024 2:28 PM EDT 01/02/2024 2:30 PM EDT Narrative [facility] [place] [id number] - 01/02/2024 2:30 PM EDT Therapeutic ranges for non-operative patients: Prophylaxsis/treatment of DVT: (Range:2.0-3.0) Treatment of pulmonary embolism:(Range:2.0-3.0) Prevention of systemic embolism from: -tissue heart valves -acute myocardial infarction -valvular heart disease -atrial fibrillation (Range: 2.0-3.0) Mechanical prosthetic valves: (Range: 2.5-3.5) [facility] POINT OF CARE TEST DOCKED DEVICE UNSOLICITED RESULTS [facility] [place] [id number] [address] [place] [id number] documented in this encounter Visit Diagnoses Diagnosis Anticoagulation 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- Primary Encounter for therapeutic drug monitoring Paroxysmal atrial fibrillation (HCC) Atrial fibrillation documented in this encounter Care Teams Leather Carver Relationship Specialty Start Date End Date Agnes Saavedra DO [address] [place] [address] [place] [address] PCP - General Internal Medicine 04/26/23 documented as of this encounter"
--- OUTSIDE RECORDS SUMMARY | 2024-06-14 13:35 | External Medical Summary ---
Author Name Unknown Address Unknown Organization K01:[facility]ATORY [facility] [place] [address] [place] [address] Laboratory Report Ordering Provider Test Date Status VIVIEN BLOOM 01/16/2024 09:03:00 Final Deficient: <20 ng/mL
Ins ufficient: 20-29 ng/mL
Recommended/Optimum:30-50 ng/mL

Vitamin D intoxication is rare. If suspicious of Vitamin D toxicity, evaluation of serum Calcium and PTH is recommended. Observation Date Value Abnormality Reference (Units ) Status 25-OH Vitamin D total 01/16/2024 09:03:00 20 >19 (ng/mL) Final Performing Location LAB[facility]ATORY [facility] - [address] [place] [address]
[2024-06-14] MEDS ORDERED: ALBUT/IPRATROP 3MG/0.5MG NEB 3 ML VIAL NEB PRN (14:22)
--- NOTE | 2024-06-14 14:24 | Pulmonary Consultation ---
Date of Consultation June 14, 2024 Assessment & Plan (1) Diastolic heart failure: (2) COPD exacerbation: Plan Impression: 79-year-old female with extensive history of tobacco abuse. CT of the chest performed 2018 did show some apical emphysematous changes but the patient has never had pulmonary function testing performed previously. She presents with shortness of breath. Her chest x-ray appears to be more consistent with mild vascular congestion which would be consistent with her significant diastolic dysfunction as well. Recommendations: 1. Dyspnea: Recommend continued attempts at diuretics. Would maintain good blood pressure control as well as heart rate control for her diastolic heart failure. Rechecking BNP and low threshold for repeat echocardiogram depending on clinical course. 2. Emphysema: Severity unknown. Seems reasonable to continue with prednisone at a much lower dose. Will decrease her down to 20 mg a day and plan for 5 days. Given potential acute exacerbation of COPD, will place on doxycycline as well. Continue Anoro. Can continue DuoNebs on an as needed basis. Most of her wheezing appears to emanate from an upper respiratory/vocal cord source. Vocal cord dysfunction could certainly be contributing. Would recommend PFTs in the outpatient setting. 3. Hypoxemia: Would continue oxygen titrated to keep saturations at or above 88%. Patient may require oxygen on a more regular basis moving forward. Recommend incentive spirometry, out of bed to chair as tolerated, and ambulate in the hallway is much as possible. Will require formal two-step prior to discharge Anticipate the patient should continue to respond and be eligible for discharge and relative short order. Thanks for the opportunity to participate in care of this patient. Feel free to contact us with questions or concerns History of Present Illness Attending Physician: Gordo White, History of Present Illness Asked by hospitalist to assist in evaluation management this patient with hypoxemia wheezing and respiratory symptoms. History is obtained from discussion with the patient as well as review the electronic medical record. Patient is a 79-year-old female with about a 55-[id number]-[id number] history of tobacco abuse who quit smoking about 3 years ago. She states she has been diagnosed with COPD/emphysema by her resident care aid but has never had formal pulmonary function testing performed previously. She has oxygen which she uses at home on a nightly basis but does not really need it during the day. She has a history of significant diastolic dysfunction as well as atrial fibrillation and chronic kidney disease. She presented to the emergency room yesterday with complaints of significant shortness of breath. She has had symptoms for 3 to 4 days including cough and congestion. She was hypoxemic in the emergency room and had an elevated white blood cell count. Chest x-ray demonstrated pulmonary vascular congestion without overt pulmonary edema. She was wheezing and was treated with steroids and bronchodilators and admitted to the hospitalist service. Her BNP was elevated. The patient reports that today she is feeling better. She continues to have a low oxygen requirement. She is not really moving around much. She does not report chest pain or palpitations. She has not had significant lower extremity edema. Allergies Allergy/AdvReac Type Severity Reaction Status Date / Time ciprofloxacin Allergy Severe Itching Verified 10/24/22 19:40 sulfamethoxazole AdvReac Severe CAUSED Verified 10/24/22 19:40 [From Bactrim] KIDNEY PROBLEMS trimethoprim [From Bactrim] AdvReac Severe CAUSED Verified 10/24/22 19:40 KIDNEY PROBLEMS adhesive AdvReac Mild BLISTERS Verified 10/24/22 19:40 Home Medications Medication Instructions Recorded Confirmed Type warfarin 2 mg tablet (Jantoven) 2 mg PO WK 12/12/17 06/14/24 History albuterol sulfate 90 mcg/actuation 2 puff inhalation Q4 PRN Shortness 07/13/20 06/13/24 History aerosol inhaler (Ventolin HFA) Of Breath Or Wheezing amiodarone 200 mg tablet 200 mg PO HS 07/13/20 06/14/24 History famotidine 20 mg tablet 20 mg PO QAM 07/13/20 06/13/24 History fluticasone propionate 50 2 spray intranasal QAM Nasal 07/13/20 06/13/24 History mcg/actuation nasal Congestion spray,suspension metoprolol succinate 25 mg 37.5 mg PO QAM 07/13/20 06/14/24 History tablet,extended release 24 hr umeclidinium 62.5 mcg-vilanterol 1 inh inhalation QAM 07/13/20 06/13/24 History 25 mcg/actuation powdr for inhalation (Anoro Ellipta) Oxygen Home #1 ea 03/26/21 06/14/24 Rx omeprazole 40 mg capsule,delayed 40 mg PO BID 04/14/21 06/13/24 History release warfarin 1 mg tablet 1 mg PO 6XWK 10/24/22 06/14/24 History ascorbic acid (vitamin C) 500 mg 500 mg PO Q OTHER DAY 06/13/24 06/13/24 History tablet (Vitamin C) atorvastatin 10 mg tablet 10 mg PO QAM 06/13/24 06/13/24 History cholecalciferol (vitamin D3) 50 50 mcg PO QAM 06/13/24 06/13/24 History mcg (2,000 unit) tablet (Vitamin D3) cyanocobalamin (vitamin B-12) 100 100 mcg PO QAM 06/13/24 06/13/24 History mcg tablet furosemide 20 mg tablet See Rx Instructions .Route .COMPLEX 06/13/24 06/13/24 History gabapentin 100 mg capsule 100 mg PO QAM 06/13/24 06/14/24 History gabapentin 300 mg capsule 300 mg PO HS 06/13/24 06/14/24 History ketoconazole 2 % shampoo 1 applic topical 3XWK 06/13/24 06/13/24 History levothyroxine 75 mcg tablet 75 mcg PO DAILYBB 06/13/24 06/13/24 History potassium chloride 10 mEq 10 meq PO QAM 06/13/24 06/13/24 History tablet,extended release(part/cryst) Patient History Medical History Abdominal aneurysm Anticoagulated on warfarin Atrial fibrillation Chronic diastolic CHF (congestive heart failure) Chronic respiratory failure with hypoxia CKD (chronic kidney disease) stage 3, GFR 30-59 ml/min COPD (chronic obstructive pulmonary disease) Diverticulosis GERD (gastroesophageal reflux disease) Hypertension Pneumonia due to COVID-19 virus Tachy-silvestre syndrome Tobacco abuse Surgical History H/O tubal ligation History of cardiac pacemaker "10/04/17 Dr. De" History of colonoscopy with polypectomy History of lumpectomy of left breast History of partial colectomy "secondary to diverticulitis" History of tubal ligation Family History Mother Colorectal cancer Myocardial infarction Diabetes Father Diabetes Sister Skin cancer Social History Smoking Status: Former smoker Tobacco Type: Cigarettes Cigarettes Per Day: 10; Second Hand Exposure: Yes; Do You Dip or Chew Tobacco: No; Hx Alcohol Use: Yes Hx Substance Use: No Preferred Language: Nepali Communication Ability: Effective Shell Fisherman Required: No Beliefs That Will Affect Care: None marital status: Current Living Situation: Family Current Living Situation Comment: pt's son lives with her Other Information That Helps Us Care for You: No Feels Safe at Home: Yes Safety Concerns: Feels Safe At This Time Assistive Devices: Cane and Walker Assistive Devices Comment: pt wears O2 2 to 4 LPM at bedtime at home Review of Systems Review of Systems: Please refer to admission H&P. No additions or deletions Physical Exam Constitutional: WD/WN, vitals as above Neck: trachea midline, no thyromegaly Respiratory: no respiratory distress, no labored breathing, no cough and not tachypneic Auscultation: + rhonchi Wheezing is primarily located in the throat and transmitted to the lower respiratory hardy. No crackles Cardiovascular: RRR, no murmur, no edema Gastrointestinal (Abdomen): normal bowel sounds, soft, nontender, no hepatosplenomegaly Musculoskeletal: Extremities: extremities normal to inspection Skin: no rashes, warm and dry Neurologic: Nonfocal exam Lymphatic: no cervical lymphadenopathy Results & Data Results & Data Vital Signs (Past 12 Hours) Vital Signs Temp Pulse Pulse Resp BP Pulse Ox O2 Del Method 06/14/24 11:02 68 18 98 Nasal Cannula 06/14/24 10:37 36.6 C 56 L 19 107/67 98 Nasal Cannula 06/14/24 10:23 Nasal Cannula 06/14/24 07:40 36.4 C L 62 16 115/68 98 Nasal Cannula 06/14/24 07:33 64 18 99 Nasal Cannula 06/14/24 02:33 36.6 C 65 18 114/67 97 Nasal Cannula O2 Flow Rate 06/14/24 11:02 2 06/14/24 10:37 2 06/14/24 10:23 2 06/14/24 07:40 2 06/14/24 07:33 2 06/14/24 02:33 Laboratory Results BNP elevated at 247 [employer] PCR unremarkable Diagnostic Findings Patient's last echocardiogram from April 2021 showed an EF of 6065% with moderate to severe tricuspid regurgitation and severe diastolic dysfunction with an E to E prime ratio of 33 Critical Care Results & Data Vital Signs (Past 12 Hours) Vital Signs Temp Pulse Pulse Resp BP Pulse Ox O2 Del Method 06/14/24 11:02 68 18 98 Nasal Cannula 06/14/24 10:37 36.6 C 56 L 19 107/67 98 Nasal Cannula 06/14/24 10:23 Nasal Cannula 06/14/24 07:40 36.4 C L 62 16 115/68 98 Nasal Cannula 06/14/24 07:33 64 18 99 Nasal Cannula 06/14/24 02:33 36.6 C 65 18 114/67 97 Nasal Cannula O2 Flow Rate 06/14/24 11:02 2 06/14/24 10:37 2 06/14/24 10:23 2 06/14/24 07:40 2 06/14/24 07:33 2 06/14/24 02:33 Lab & Micro Results (Past 24 Hours) RBC 3.87 M/uL (4.20-5.40) L 06/14/24 WBC 9.56 K/ul (4.8-10.8) 06/14/24 Hgb 11.3 g/dl (12.0-16.0) L 06/14/24 Hct 35.6 % (37.0-47.0) L 06/14/24 MCV 92.0 fL (80.0-100.0) 06/14/24 MCH 29.2 pg (25.0-34.0) 06/14/24 MCHC 31.7 g/dL (32.0-36.0) L 06/14/24 RDW Standard Deviation 49.9 fL (36.4-46.3) H 06/14/24 RDW Coefficient of Variation 15.0 % (11.5-14.5) H 06/14/24 Plt Count 247 K/uL (130-400) 06/14/24 MPV 10.9 fL (9.4-12.4) 06/14/24 Neutrophils (%) (Auto) 68.9 % 06/13/24 Lymphocytes (%) (Auto) 19.3 % 06/13/24 Monocytes # (Auto) 0.87 K/uL (0.11-0.59) H 06/13/24 Eosinophils # (Auto) 0.35 K/uL (0.00-0.50) 06/13/24 Immature Granulocyte % (Auto) 0.4 % 06/13/24 Neutrophils # (Auto) 7.72 K/uL (1.40-6.50) H 06/13/24 Lymphocytes # (Auto) 2.17 K/uL (1.20-3.40) 06/13/24 Monocytes # (Auto) 0.87 K/uL (0.11-0.59) H 06/13/24 Eosinophils # (Auto) 0.35 K/uL (0.00-0.50) 06/13/24 Basophils # (Auto) 0.06 K/uL (0.00-0.20) 06/13/24 Immature Granulocyte # (Auto) 0.05 K/uL (0.01-0.20) 5 Na 141 mmol/L (136-145) 06/14/24 K 4.7 mmol/L (3.5-5.1) 06/14/24 Cl 107 mmol/L (98-107) 06/14/24 CO2 26 mmol/L (21-32) 06/14/24 Anion Gap 8 (3-11) 06/14/24 BUN 18 mg/dl (6-23) 06/14/24 Creatinine 1.45 mg/dl (0.6-1.2) H 06/14/24 BUN/Creatinine Ratio 12.4 (10-20) 06/14/24 Glu 176 mg/dl (70-99(Fasting)) H 06/14/24 Ca 8.8 mg/dl (8.6-10.3) 06/14/24 Total Bilirubin 0.7 mg/dl (0.2-1.0) 06/13/24 AST 26 U/L (13-39) 06/13/24 ALT 22 U/L (7-52) 06/13/24 Alkaline Phosphatase 155 U/L (34-104) H 06/13/24 TP 6.8 gm/dl (6.0-8.3) 06/13/24 Albumin 3.5 gm/dl (3.4-5.0) 06/13/24 Globulin 3.3 gm/dl (2.5-4.0) 06/13/24 Albumin/Globulin Ratio 1.1 (0.9-2) 06/13/24 Calcium Level 8.8 mg/dl (8.6-10.3) 06/14/24 06:13 Prothromb Time International Ratio 1.8 (0.9-1.1) H 06/14/24 06 :13 Diagnostic Findings (Past 24 Hours) Chest X-Ray 06/13/24 20:40 Exam(s): XR CXR 1 VIEW EXAM: XR Chest, 1 View CLINICAL HISTORY: Reason for exam: Chest pain, nonspecific. TECHNIQUE: Frontal view of the chest. COMPARISON: Chest radiograph on 04/19/2021 FINDINGS: Hardware: None. Lungs/pleura: Prominence lung markings and hazy opacities. No pleural effusion or pneumothorax. Heart/mediastinum: Borderline size of the cardiac silhouette. Atherosclerotic changes in the aorta. Left-sided pacemaker Soft tissues: Unremarkable. Bones: No acute fracture. Upper abdomen: Normal. IMPRESSION: Prominent lung markings and hazy opacities raise concern for pulmonary vasculature congestion/edema. Electronically signed by: Angel Douglass M.D. 06/14/24 01:14 AM I & O Totals 24 Hours 06/13/24 06/14/24 06/15/24 06:59 06:59 06:59 Intake Total 120 / 120 Balance 120 / 120 Cumulative 06/13/24 19:45 thru 06/14/24 05:56 Intake Total 120 Balance 120 RT Ventilator Mngmt (Last Documented) Ventilator Ordered Settings Respiratory Rate 18 06/14/24 11:02 Ventilator - PT Measurements Respiratory Rate 18 PG Care Time/CCT Total # of Minutes Spent Total Time Spent with Patient: Total time spent is greater than 50% in coordination of care (as documented) at patient's floor/unit and/or counseling patient: Coding Level of Care Code 55765 INT INP/OBS CARE 2/55MIN Diagnoses Diastolic heart failure I50.30 COPD exacerbation J44.1
--- NOTE | 2024-06-14 14:57 | Hospitalist Progress Note ---
Date of Service June 14, 2024 Assessment & Plan (1) Acute on chronic diastolic CHF (congestive heart failure): (2) Acute on chronic respiratory failure with hypoxia: (3) COPD exacerbation: (4) Paroxysmal atrial fibrillation: (5) Anticoagulated on warfarin: (6) CKD (chronic kidney disease) stage 3, GFR 30-59 ml/min: Plan Patient still requiring oxygen. Seems that this may be more decompensated heart failure with a mild exacerbation of COPD Continue to titrate oxygen as able Give additional diuretics today Reviewed pulmonary consultation, agree with recommendations Continue warfarin dosing and monitor INR Rates controlled with atrial fibrillation at this time Continue to monitor renal function with additional diuresis Admission and Anticipated Discharge Date Admission Date: June 14, 2024 Subjective Patient still feels a bit tight across her chest with some shortness of breath. Physical Exam Physical Exam: Constitutional: Alert, nontoxic, no acute distress HEENT: Mucous membranes moist. Lungs: Decreased breath sounds, fine crackles throughout, expiratory wheezes, focused more in the upper airway CV: S1-S2, irregular Abdomen: Soft, nontender, nondistended Extremities: Trace edema Neuro: No focal deficits Psych: Cooperative, normal mood Results & Data Results & Data Vital Signs (Past 12 Hours) Vital Signs Temp Pulse Resp BP Pulse Ox O2 Del Method O2 Flow Rate 06/14/24 11:02 68 18 98 Nasal Cannula 2 06/14/24 10:37 36.6 C 56 L 19 107/67 98 Nasal Cannula 2 06/14/24 10:23 Nasal Cannula 2 06/14/24 07:40 36.4 C L 62 16 115/68 98 Nasal Cannula 2 06/14/24 07:33 64 18 99 Nasal Cannula 2 Diagnostic Findings Reviewed imaging, laboratory and diagnostic studies. Pertinent findings as below. WBCs 9.5 Hemoglobin Clay 0.3 Electrolytes stable Creatinine 1.45 BNP 247 Personally reviewed chest x-ray consistent with pulmonary congestion
[2024-06-14] MEDS ORDERED: CARBOHYDRATES FOR HYPOGLYCEMIA PO PRN (15:01)
[2024-06-14] MEDS ORDERED: GLUCAGON FOR INJ 1 MG VIAL SQ PRN (15:01)
[2024-06-14] MEDS ORDERED: GLUCOSE 10 TAB/TUBE PO PRN (15:01)
[2024-06-14] MEDS ORDERED: DEXTROSE 50% 50 ML SYRINGE IV PRN (15:01)
[2024-06-14] MEDS ORDERED: GLUCOSE 40% GEL 15 GM TUBE PO PRN (15:01)
[2024-06-14] MEDS ORDERED: WARFARIN SOD 1 MG TAB PO SCH (16:00)
[2024-06-14] MEDS: FUROSEMIDE 40 MG/4 ML VIAL IV ONE (16:38)
[2024-06-14] MEDS: INSULIN ASPART PER UNIT CHARGE SC SCH (17:17)
[2024-06-14] MEDS: METOPROLOL SUCC 25MG EXT REL TAB PO SCH (20:34)
[2024-06-14] MEDS: AMIODARONE 200 MG TAB PO SCH (20:36)
[2024-06-14] MEDS: DOXYCYCLINE HYCLATE 100 MG CAP PO SCH (20:36)
[2024-06-14] MEDS: GABAPENTIN 300 MG CAP PO SCH (20:36)
[2024-06-14] MEDS ORDERED: GABAPENTIN 300 MG CAP PO SCH (21:00)
[2024-06-14] MEDS ORDERED: AMIODARONE 200 MG TAB PO SCH (21:00)
[2024-06-15 07:40] LABS: BUN Creatinine Ratio 20.6 (10-20); Calcium 9.6 mg/dl (8.6-10.3); Creatinine Clr Calc Pharmacy 31.1 ml/min; Magnesium 2.1 mg/dl (1.7-2.4); Potassium 4.8 mmol/L (3.5-5.1)
[2024-06-15 07:55] LABS: Thyroid Stimulating Hormone 0.657 uIu/ml (0.300-4.500)
[2024-06-15 08:00] LABS: INR 2.1 (0.9-1.1); Prothrombin Time 21.4 Seconds (9.0-12.0)
--- NOTE | 2024-06-15 08:10 | Pulmonology Progress Note ---
Date of Service June 15, 2024 Assessment & Plan (1) Diastolic heart failure: (2) COPD exacerbation: Plan Impression: 79-year-old female with extensive history of tobacco abuse. CT of the chest performed 2018 did show some apical emphysematous changes but the patient has never had pulmonary function testing performed previously. She presents with shortness of breath. Her shortness of breath is likely multifactorial. Recommendations: 1. Dyspnea: Multifactorial. Potential vocal cord dysfunction. Outpatient speech therapy evaluation may be warranted. Patient is anticoagulated which makes PE much less likely. Do not think this needs to be investigated currently. May consider repeating her echocardiogram as the prior echo was done about 3 years ago. 2. Emphysema: Severity unknown. Short course of steroids and doxycycline. Continue Anoro. Can continue DuoNebs on an as needed basis. Most of her wheezing appears to emanate from an upper respiratory/vocal cord source. Vocal cord dysfunction could certainly be contributing. Would recommend PFTs in the outpatient setting. 3. Hypoxemia: Would continue oxygen titrated to keep saturations at or above 88%. Patient may require oxygen on a more regular basis moving forward. Recommend incentive spirometry, out of bed to chair as tolerated, and ambulate in the hallway is much as possible. Will require formal two-step prior to discharge Patient appears relatively stable currently. Unclear how much of this evaluation can be conducted as an outpatient. Admission and Anticipated Discharge Date Admission Date: June 14, 2024 Subjective Patient seen and examined. EMR reviewed. The patient has been urinating frequently. She is unclear if her breathing is significantly better not. She is able to complete full sentences with no conversational dyspnea. The patient's "wheezing" is emanating from her vocal cords. Her lungs are actually clear. She is not coughing or expectorating phlegm Review of Systems Review of Systems: All systems reviewed & are unremarkable except as noted in Subjective Physical Exam Constitutional: WD/WN, vitals as above Neck: trachea midline, no thyromegaly With deep inspirations the patient has significant expiratory wheezing at the level of the vocal cords over the neck. Lungs are clear Respiratory: no respiratory distress, no labored breathing, no cough and not tachypneic Auscultation: lungs clear to auscultation bilaterally Cardiovascular: RRR, no murmur, no edema Gastrointestinal (Abdomen): normal bowel sounds, soft, nontender, no hepatosplenomegaly Musculoskeletal: Extremities: extremities normal to inspection Skin: no rashes, warm and dry Lymphatic: no cervical lymphadenopathy Results & Data Results & Data Vital Signs (Past 12 Hours) Vital Signs Temp Pulse Pulse Resp BP Pulse Ox O2 Del Method 06/15/24 06:51 60 06/15/24 03:43 36.5 C 62 16 100/64 97 Nasal Cannula 06/14/24 23:09 36.4 C L 62 16 91/54 L 97 Nasal Cannula 06/14/24 21:42 62 06/14/24 20:32 71 133/71 O2 Flow Rate 06/15/24 06:51 06/15/24 03:43 2 06/14/24 23:09 2 06/14/24 21:42 06/14/24 20:32 PG Care Time/CCT Total # of Minutes Spent Total Time Spent with Patient: Total time spent is greater than 50% in coordination of care (as documented) at patient's floor/unit and/or counseling patient: Coding Level of Care Code 15838 SUB INP/OBS CARE 2/35MIN Diagnoses Diastolic heart failure I50.30 COPD exacerbation J44.1
[2024-06-15] MEDS: predniSONE 20 MG TAB PO SCH (08:14)
[2024-06-15 08:16] LABS: Estimated Average Glucose 128 mg/dl; Hemoglobin A1C 6.1 % (4.5-5.6)
[2024-06-15] MEDS: FUROSEMIDE 40 MG TAB PO SCH (08:20)
--- NOTE | 2024-06-15 12:52 | Hospitalist Progress Note ---
Date of Service June 15, 2024 Assessment & Plan (1) Acute on chronic diastolic CHF (congestive heart failure): (2) Acute on chronic respiratory failure with hypoxia: (3) COPD exacerbation: (4) Paroxysmal atrial fibrillation: (5) Anticoagulated on warfarin: (6) CKD (chronic kidney disease) stage 3, GFR 30-59 ml/min: (7) Acute renal failure superimposed on stage 3 chronic kidney disease: (8) Prediabetes: Plan Patient overall improving. Outside echocardiogram confirms diastolic dysfunction Creatinine slightly increasing over baseline. Will continue to monitor. Lasix orally twice daily today. Patient may need oxygen [id number]. Possible discharge tomorrow. Continue diet control for prediabetes. Admission and Anticipated Discharge Date Admission Date: June 14, 2024 Subjective Patient doing a little bit better. Still on oxygen. Physical Exam Physical Exam: Constitutional: Alert, no acute distress HEENT: Mucous membranes moist. Lungs: Decreased breath sounds, Rales improved, few upper airway wheezing. CV: S1-S2, regular Abdomen: Soft, nontender, nondistended Extremities: No significant edema Neuro: No focal deficits Psych: Cooperative, normal mood Results & Data Results & Data Vital Signs (Past 12 Hours) Vital Signs Temp Pulse Pulse Resp BP Pulse Ox O2 Del Method 06/15/24 12:09 36.5 C 86 20 118/74 93 Nasal Cannula 06/15/24 08:33 Nasal Cannula 06/15/24 08:09 36.4 C L 65 18 112/70 100 Nasal Cannula 06/15/24 06:51 60 06/15/24 03:43 36.5 C 62 16 100/64 97 Nasal Cannula O2 Flow Rate 06/15/24 12:09 2 06/15/24 08:33 2 06/15/24 08:09 2 06/15/24 06:51 06/15/24 03:43 2 Diagnostic Findings Reviewed imaging, laboratory and diagnostic studies. Pertinent findings as below. INR 2.1 Creatinine 1.6 Hemoglobin A1c 6.1% TSH 0.65 Reviewed outside EMR: Echocardiogram from February 2024 shows ejection fraction 55 to 60% with grade 2 diastolic dysfunction, mild pulmonary hypertension, pulmonary artery pressure 48 mmHg. Mild valvular disorder. Reviewed baseline creatinine, appears to be around 1.3.
[2024-06-16 06:22] LABS: INR 2.3 (0.9-1.1); Prothrombin Time 22.9 Seconds (9.0-12.0)
[2024-06-16 07:55] LABS: BUN Creatinine Ratio 30.7 (10-20); Calcium 9.6 mg/dl (8.6-10.3); Creatinine Clr Calc Pharmacy 32.9 ml/min; Potassium 4.4 mmol/L (3.5-5.1)
--- NOTE | 2024-06-16 10:47 | Pulmonology Progress Note ---
Date of Service June 16, 2024 Assessment & Plan (1) Diastolic heart failure: (2) COPD exacerbation: Plan Impression: 79-year-old female with extensive history of tobacco abuse. CT of the chest performed 2018 did show some apical emphysematous changes but the patient has never had pulmonary function testing performed previously. She presents with shortness of breath. Her shortness of breath is likely multifactorial. Recommendations: 1. Dyspnea: Multifactorial. Potential vocal cord dysfunction. Outpatient speech therapy evaluation may be warranted. Patient is anticoagulated which makes PE much less likely. Do not think this needs to be investigated currently. May consider repeating her echocardiogram as the prior echo was done about 3 years ago. 2. Emphysema: Severity unknown. Short course of steroids and doxycycline. Continue Anoro. Can continue DuoNebs on an as needed basis. Most of her wheezing appears to emanate from an upper respiratory/vocal cord source. Vocal cord dysfunction could certainly be contributing. Would recommend PFTs in the outpatient setting. 3. Hypoxemia: Would continue oxygen titrated to keep saturations at or above 88%. Patient may require oxygen on a more regular basis moving forward. Recommend incentive spirometry, out of bed to chair as tolerated, and ambulate in the hallway is much as possible. Will require formal two-step prior to discharge Patient appears to be appropriate for discharge. Outpatient pulmonary follow-up to [facility] pulmonary recommended. Pulmonary will sign off. Feel free to contact us with questions or concerns Admission and Anticipated Discharge Date Admission Date: June 14, 2024 Subjective Patient seen and examined. EMR reviewed. The patient is awake alert and conversant. She is on room air at rest and states she only needs oxygen with ambulation. She is coughing less. She overall feels improved. She has no new respiratory concerns today Review of Systems 2 Review of Systems: All systems reviewed & are unremarkable except as noted in Subjective Physical Exam 2 Constitutional: WD/WN, vitals as above Neck: trachea midline, no thyromegaly Respiratory: no respiratory distress, no labored breathing, no cough and not tachypneic Auscultation: lungs clear to auscultation bilaterally and + rhonchi Cardiovascular: RRR, no murmur, no edema Gastrointestinal (Abdomen): normal bowel sounds, soft, nontender, no hepatosplenomegaly Musculoskeletal: Extremities: extremities normal to inspection Skin: no rashes, warm and dry Lymphatic: no cervical lymphadenopathy Results & Data Results & Data Vital Signs (Past 12 Hours) Vital Signs Temp Pulse Pulse Pulse Pulse Pulse Resp 06/16/24 09:32 88 88 66 06/16/24 07:59 06/16/24 07:54 36.5 C 60 20 06/16/24 07:09 61 06/16/24 06:51 66 06/16/24 04:20 36.4 C L 67 16 06/15/24 23:46 36.5 C 62 18 06/15/24 22:19 36.4 C L 66 18 06/15/24 21:47 61 Resp Resp Resp BP Pulse Ox Pulse Ox Pulse Ox 06/16/24 09:32 20 24 14 90 86 L 06/16/24 07:59 06/16/24 07:54 120/67 94 06/16/24 07:09 06/16/24 06:51 105/68 06/16/24 04:20 95/61 L 96 06/15/24 23:46 116/71 95 06/15/24 22:19 90/49 L 96 06/15/24 21:47 Pulse Ox O2 Del Method O2 Flow Rate O2 Flow Rate 06/16/24 09:32 98 2 06/16/24 07:59 Room Air 06/16/24 07:54 Room Air 06/16/24 07:09 06/16/24 06:51 06/16/24 04:20 Nasal Cannula 2 06/15/24 23:46 Nasal Cannula 2 06/15/24 22:19 Nasal Cannula 2 06/15/24 21:47 Laboratory Results 06/14/24 06:13 06/16/24 05:20 Diagnostic Findings No new imaging PG Care Time/CCT Total # of Minutes Spent Total Time Spent with Patient: Total time spent is greater than 50% in coordination of care (as documented) at patient's floor/unit and/or counseling patient: Coding Level of Care Code 65364 SUB INP/OBS CARE 2/35MIN Diagnoses Diastolic heart failure I50.30 COPD exacerbation J44.1
[2024-06-16 11:44] VITALS: BP 113/57; PULSE 62; RESP 19; TEMP 97.3; O2SAT 92
--- NOTE | 2024-06-16 12:30 | Discharge Summary ---
Discharge Summary Date of Service June 16, 2024 Principal Dx & Hospital Course #1 = Principal Diagnosis (1) Acute on chronic diastolic CHF (congestive heart failure): (2) Acute on chronic respiratory failure with hypoxia: (3) COPD exacerbation: (4) Paroxysmal atrial fibrillation: (5) Anticoagulated on warfarin: (6) CKD (chronic kidney disease) stage 3, GFR 30-59 ml/min: (7) Acute renal failure superimposed on stage 3 chronic kidney disease: (8) Prediabetes: Plan Patient is a 79-year-old female who presented to the emergency room with increasing shortness of breath on exertion. Also had increasing cough and congestion. In the emergency room she was noted to be hypoxic even while awake and some evidence of worsening heart failure. Patient was admitted to the hospital. She was treated for an exacerbation of COPD. She was also given some additional diuretics. With these interventions she rapidly improved. Her cough and congestion improved and her dyspnea on exertion improved. She does have some evidence of chronic renal failure, did worsen slightly with the diuresis but then returned to baseline. On the day of discharge two-step oxygen testing was performed. It did indicate that she would need oxygen with activity of 2 L. She had adequate O2 sat at rest. She already has oxygen at home that she wears at night. She will be discharged home with some adjustments in her diuretic regimen. Completed course of steroids and doxycycline for exacerbation of COPD and follow-up with her outpatient providers. Notes For Next Care Provider May need additional evaluation for prediabetes, hemoglobin A1c 6.1% Consider checking BMP in 10 to 14 days in the setting of diuretic use Medication Changes From Visit Doxycycline prednisone for COPD exacerbation Lasix dose increased to 60 mg daily. Potassium dosing adjusted Admission HPI Per Admitting Provider Gali hollins is a 79-year-old female with a past medical history significant for paroxysmal A-fib anticoagulated on warfarin, chronic diastolic heart failure, COPD on O2 at at bedtime, GERD, tobacco abuse disorder, hypertension and CKD stage III. She presents to the ED this evening with severe dyspnea on exertion. Her symptoms began approximately 3 to 4 days ago and consisted of cough and congestion. She cannot walk without becoming significantly short of breath. Patient required 2 L of O2 in the ED due to hypoxia. She has a mildly elevated white count. Chest x-ray does not show any obvious infiltrative process. She is wheezing profusely. She was given multiple neb treatments in the ED without relief of her wheezing and shortness of breath. Patient is referred for admission. Admission Exam Per Admitting Provider See H&P Discharge Exam Constitutional: Alert, no acute distress HEENT: Mucous membranes moist. Lungs: Decreased breath sounds, prolonged expiratory phase, overall improved airflow from admission CV: S1-S2, regular Abdomen: Soft, nontender, nondistended Extremities: No significant edema Neuro: No focal deficits Psych: Cooperative, normal mood Updated Medication List Medication Instructions Recorded Confirmed Type warfarin 2 mg tablet (Jantoven) 2 mg PO WK 12/12/17 06/14/24 History albuterol sulfate 90 mcg/actuation 2 puff inhalation Q4 PRN Shortness 07/13/20 06/13/24 History aerosol inhaler (Ventolin HFA) Of Breath Or Wheezing amiodarone 200 mg tablet 200 mg PO HS 07/13/20 06/14/24 History famotidine 20 mg tablet 20 mg PO QAM 07/13/20 06/13/24 History fluticasone propionate 50 2 spray intranasal QAM Nasal 07/13/20 06/13/24 History mcg/actuation nasal Congestion spray,suspension metoprolol succinate 25 mg 37.5 mg PO QAM 07/13/20 06/14/24 History tablet,extended release 24 hr umeclidinium 62.5 mcg-vilanterol 1 inh inhalation QA 07/13/20 06/13/24 History 25 mcg/actuation powdr for inhalation (Anoro Ellipta) Oxygen Home #1 ea 03/26/21 06/14/24 Rx omeprazole 40 mg capsule,delayed 40 mg PO BID 04/14/21 06/13/24 History release warfarin 1 mg tablet 1 mg PO 6XWK 10/24/22 06/14/24 History ascorbic acid (vitamin C) 500 mg 500 mg PO Q OTHER DAY 06/13/24 06/13/24 History tablet (Vitamin C) atorvastatin 10 mg tablet 10 mg PO QAM 06/13/24 06/13/24 History cholecalciferol (vitamin D3) 50 50 mcg PO QAM 06/13/24 06/13/24 History mcg (2,000 unit) tablet (Vitamin D3) cyanocobalamin (vitamin B-12) 100 100 mcg PO QAM 06/13/24 06/13/24 History mcg tablet furosemide 20 mg tablet See Rx Instructions .Route .COMPLEX 06/13/24 06/13/24 History gabapentin 100 mg capsule 100 mg PO QAM 06/13/24 06/14/24 History gabapentin 300 mg capsule 300 mg PO HS 06/13/24 06/14/24 History ketoconazole 2 % shampoo 1 applic topical 3XWK 06/13/24 06/13/24 History levothyroxine 75 mcg tablet 75 mcg PO DAILYBB 06/13/24 06/13/24 History potassium chloride 10 mEq 10 meq PO QAM 06/13/24 06/13/24 History tablet,extended release(part/cryst) doxycycline hyclate 100 mg capsule 100 mg PO BID #4 caps 06/16/24 Rx furosemide 40 mg tablet 60 mg (1.5 x 40 mg) PO DAILY #60 06/16/24 Rx tabs guaifenesin 600 mg tablet, 600 mg PO BID #60 tabs 06/16/24 Rx extended release 12 hr (Mucinex) prednisone 20 mg tablet 20 mg PO DAILY #2 tabs 06/16/24 Rx Hospital Stay Data Consultations 06/13/24 22:35 ED Decision to Admit Stat 06/13/24 23:49 Consult Pulmonology Routine Diagnostic Imagining Performed Reviewed imaging, laboratory and diagnostic studies. Pertinent findings as below. WBCs 9.5 Hemoglobin 11.3 INR 2.3 and has been therapeutic BMP stable Creatinine 1.50 stable Hemoglobin A1c 6.1% TSH 0.65 Pending Results Patient Have Any Pending Studies at Discharge: No Discharge Instructions Given to Patient (Per Discharging Provider) Recommend that you wear your oxygen with activity at 2 L. Continue your oxygen at nighttime. Follow-up with your outpatient providers Get a PT/INR checked per usual process on Monday Total Time Total Time Spent Total Time Spent (In Minutes): 35
== END 2024-06-16 14:43 | disposition home or self-care (01) | DRG 190 ==
LOC: EDINP 19:55 → ED 19:55 → SUATTDRO 23:21 → 2S 23:49 → 2N 06-14 18:31

== ENCOUNTER 2025-02-10 20:56 | Inpatient (IN) ==
[2025-02-10 21:31] LABS: Hematocrit (blood only) 41.4 % (37.0-47.0); Hemoglobin 13.5 g/dl (12.0-16.0); Immature Granulocytes # (auto) 0.03 K/uL (0.01-0.20); Immature Granulocytes % (auto) 0.3 %; Mean Corpuscular Hemoglobin 29.7 pg (25.0-34.0); Mean Corpuscular Volume 91.0 fL (80.0-100.0); Platelet Count 228 K/uL (130-400); RDW Standard Deviation 52.1 fL (36.4-46.3); Red Blood Count 4.55 M/uL (4.20-5.40); White Blood Count 10.50 K/ul (4.8-10.8)
--- NOTE | 2025-02-10 21:33 | Emergency Department Note ---
Impression & Plan SOB (shortness of breath), COPD exacerbation, Bronchitis, Elevated brain natriuretic peptide (BNP) level ED Provider Note NAME: MARLEE GALLOWAY AGE: 79 SEX: F : 1945 ARRIVES VIA: Ambulance INFORMANT: [Patient] ED PROVIDER(S): [Mayank Johnson MD] CHIEF COMPLAINT: Illness HISTORY OF PRESENT ILLNESS: The patient is a 79-year-old female with a history of COPD and pacemaker placement. She is on warfarin chronically. The patient states that for 5 days, she has had increased cough, the cough has been productive of yellow to green sputum. She has been increasing short of breath and is now short of breath just at rest. She has had chills and fever and, she is concerned about a lung infection. The patient denies any vomiting or diarrhea. She does not have chest pain. The patient states that she wears oxygen at nighttime, sometimes during the day if needed. She is using her Trelegy and albuterol inhaler. PMHx/PSHx/Social Hx: See Below PHYSICAL EXAM: GENERAL: Patient is in no acute distress. HEENT: No acute trauma, normocephalic atraumatic, mucous membranes moist, no nasal congestion. NECK: No stridor, no adenopathy, no meningismus, trachea is midline. LUNGS: Wheezing bilaterally, diminished breath sounds bilaterally, no respiratory distress. HEART: Subtle systolic murmur with a regular rhythm and an occasional extra beat. Regular rate. ABDOMEN: Soft, nontender, no peritonitis. EXTREMITIES: No cyanosis, full range of motion of all the joints without pain or difficulty. NEUROLOGIC: Oriented x 3, no acute motor or sensory deficits, no focal weakness. SKIN: No jaundice, no diaphoresis. DIFFERENTIAL DIAGNOSIS: Bronchitis or pneumonia, COPD flare, CHF, anemia, cardiac ischemia, among others. EMERGENCY DEPARTMENT PROCEDURES: MEDICAL DECISION MAKING: There is no leukocytosis or concerning anemia. There is a normal platelet count. No bandemia. INR is 2.0, consistent with her warfarin use. There is no renal failure or significant electrolyte abnormality. Lactic acid level was not elevated making severe sepsis less likely. There were a few subtle liver enzymes elevations. ECG shows atrial fibrillation with some T wave inversions, no ST elevation. Cardiac enzyme testing x 1 was not consistent with acute cardiac injury. Chest x-ray did not show pneumonia or worrisome CHF. Respiratory BioFire was negative. BNP was elevated consistent with potential fluid overload/CHF. On exam, the patient was wheezing. She was not febrile. Patient was given a DuoNeb, she was given IV Solu-Medrol. She received IV ceftriaxone as antibiotic coverage. She was given a dose of IV Lasix for potential fluid overload, 60 mg. An external Mistry catheter was ordered. The patient requires a hospital stay. She has severe COPD and presents with dyspnea even at rest. She is feeling poorly despite using her Trelegy and albuterol. She has had issues similar to this in the past. Her dyspnea and COPD flare is likely multifactorial, I do think there is a bronchitis present, I suspect some subtle fluid overload. I did speak with the patient and case management, the on-call hospitalist was consulted. Prior/Outside records/notes reviewed: Today's EMS notes describing her presentation and transport to this hospital. ECG per my interpretation: Indication was shortness of breath. The ECG shows what appears to be atrial fibrillation with a rate of 80. There are inverted T waves seen across the inferior and lateral leads. There is no acute ST elevation, no PVCs but the QTc is 456. Compared to an ECG from 13 June 2024, pacemaker function is currently not present. Continuous Cardiac Monitoring per my interpretation: An order was placed for continuous cardiac monitoring. The monitor shows a rate of 81 with ventricular pacing. Imaging/x-ray results per my interpretation: Chest x-ray shows some chronic change, no focal pneumonia or concerning CHF. Chronic Medical/Social conditions affecting care: Advanced age. History of COPD. Care/Management discussed with: Case management and the on-call hospitalist. Level of care consideration(s): After review of the information above and other included data: --I believe the patient requires escalation of care to admission DISPOSITION: Admission Past Med/Surg History Problem List (Updated 02/10/25 @ 22:39 by Mayank Johnson MD) Elevated brain natriuretic peptide (BNP) level (Acute) Bronchitis (Acute) COPD exacerbation (Acute) SOB (shortness of breath) (Acute) Prediabetes Acute renal failure superimposed on stage 3 chronic kidney disease Diastolic heart failure Leukocytosis (Acute) COPD exacerbation (Acute) Paroxysmal atrial fibrillation DVT prophylaxis History of COVID-19 Hematoma of leg Acute on chronic respiratory failure with hypoxia (Acute) Acute on chronic diastolic CHF (congestive heart failure) Elevated INR (Acute) Diverticulosis (Chronic) Medical History Chronic respiratory failure with hypoxia Chronic diastolic CHF (congestive heart failure) Pneumonia due to COVID-19 virus CKD (chronic kidney disease) stage 3, GFR 30-59 ml/min Anticoagulated on warfarin Tachy-silvestre syndrome Atrial fibrillation COPD (chronic obstructive pulmonary disease) Hypertension GERD (gastroesophageal reflux disease) Tobacco abuse Abdominal aneurysm Surgical History H/O tubal ligation History of cardiac pacemaker "10/04/17 Dr. De" History of colonoscopy with polypectomy History of lumpectomy of left breast History of partial colectomy "secondary to diverticulitis" History of tubal ligation Family History Mother Colorectal cancer Myocardial infarction Diabetes Father Diabetes Sister Skin cancer Social History Smoking Status: Former smoker Tobacco Type: Cigarettes Cigarettes Per Day: 10; Second Hand Exposure: Yes; Do You Dip or Chew Tobacco: No; Hx Alcohol Use: Yes Hx Substance Use: No Preferred Language: Wolof Communication Ability: Effective Nursery Worker Required: No Beliefs That Will Affect Care: None marital status: Current Living Situation: Family Current Living Situation Comment: pt's son lives with her Feels Safe at Home: Yes Assistive Devices: Cane and Walker Allergies Allergies Allergy/AdvReac Type Severity Reaction Status Date / Time amoxicillin Allergy Severe Itching Verified 02/10/25 22:18 ciprofloxacin Allergy Severe Itching Verified 02/10/25 22:18 adhesive Allergy Intermediate BLISTERS Verified 02/10/25 22:18 sulfamethoxazole AdvReac Severe CAUSED Verified 02/10/25 22:18 [From Bactrim] KIDNEY PROBLEMS trimethoprim [From Bactrim] AdvReac Severe CAUSED Verified 02/10/25 22:18 KIDNEY PROBLEMS cephalexin AdvReac Intermediate REDNESS, Verified 02/10/25 22:18 FLUSHING, DIARRHEA Home Meds Home Medications Medication Instructions Recorded Confirmed warfarin 2 mg tablet (Jantoven) 2 mg PO WK 12/12/17 06/14/24 albuterol sulfate 90 mcg/actuation 2 puff inhalation Q4 PRN Shortness 07/13/20 06/13/24 aerosol inhaler (Ventolin HFA) Of Breath Or Wheezing amiodarone 200 mg tablet 200 mg PO HS 07/13/20 06/14/24 famotidine 20 mg tablet 20 mg PO QAM 07/13/20 06/13/24 fluticasone propionate 50 2 spray intranasal QAM Nasal 07/13/20 06/13/24 mcg/actuation nasal Congestion spray,suspension metoprolol succinate 25 mg 37.5 mg PO QAM 07/13/20 06/14/24 tablet,extended release 24 hr umeclidinium 62.5 mcg-vilanterol 1 inh inhalation QA 07/13/20 06/13/24 25 mcg/actuation powdr for inhalation (Anoro Ellipta) omeprazole 40 mg capsule,delayed 40 mg PO BID 04/14/21 06/13/24 release warfarin 1 mg tablet 1 mg PO 6XWK 10/24/22 06/14/24 ascorbic acid (vitamin C) 500 mg 500 mg PO Q OTHER DAY 06/13/24 06/13/24 tablet (Vitamin C) atorvastatin 10 mg tablet 10 mg PO QAM 06/13/24 06/13/24 cholecalciferol (vitamin D3) 50 50 mcg PO QAM 06/13/24 06/13/24 mcg (2,000 unit) tablet (Vitamin D3) cyanocobalamin (vitamin B-12) 100 100 mcg PO QAM 06/13/24 06/13/24 mcg tablet gabapentin 100 mg capsule 100 mg PO QAM 06/13/24 06/14/24 gabapentin 300 mg capsule 300 mg PO HS 06/13/24 06/14/24 ketoconazole 2 % shampoo 1 applic topical 3XWK 06/13/24 06/13/24 levothyroxine 75 mcg tablet 75 mcg PO DAILYBB 06/13/24 06/13/24 Previous Rx's Medication Instructions Recorded Oxygen Home #1 ea 03/26/21 doxycycline hyclate 100 mg capsule 100 mg PO BID #4 caps 06/16/24 furosemide 40 mg tablet 60 mg (1.5 x 40 mg) PO DAILY #60 06/16/24 tabs guaifenesin 600 mg tablet, 600 mg PO BID #60 tabs 06/16/24 extended release 12 hr (Mucinex) potassium chloride 10 mEq 20 meq (2 x 10 mEq) PO QAM #60 tabs 06/16/24 tablet,extended release(part/cryst) prednisone 20 mg tablet 20 mg PO DAILY #2 tabs 06/16/24 Results & Data (ED) Vital Signs Vital Signs - 24 hr 02/10/25 21:07 02/10/25 21:07 02/10/25 21:17 Pulse Rate 76 81 Pulse Rate [Apical] 82 Pulse Rhythm Regular Regular Pulse Rhythm [Apical] Regular Pulse Strength Normal Pulse Strength [Apical] Normal Respiratory Rate 18 18 21 Respiratory Effort / Characteristics Non-Labored Non-Labored Respiratory Depth Normal Normal Respiratory Pattern Regular Blood Pressure 120/63 Blood Pressure [Right Arm] 120/63 Blood Pressure Mean 82 Blood Pressure Mean [Right Arm] 82 Blood Pressure Position Lying Blood Pressure Position [Right Arm] Lying Pulse Oximetry 92 100 100 Oxygen Delivery Method Nasal Cannula Room Air Nasal Cannula Oxygen Flow Rate 3 3 Sepsis Recent Fever Within 48 Hours Yes Sepsis New/Unexplained Change in Mental Status No Sepsis Action Taken by Nursing No Action Required 02/10/25 21:44 Pulse Rate 98 H Pulse Rate [Apical] Pulse Rhythm Pulse Rhythm [Apical] Pulse Strength Pulse Strength [Apical] Respiratory Rate Respiratory Effort / Characteristics Respiratory Depth Respiratory Pattern Blood Pressure Blood Pressure [Right Arm] Blood Pressure Mean Blood Pressure Mean [Right Arm] Blood Pressure Position Blood Pressure Position [Right Arm] Pulse Oximetry Oxygen Delivery Method Oxygen Flow Rate Sepsis Recent Fever Within 48 Hours Sepsis New/Unexplained Change in Mental Status Sepsis Action Taken by [facility] Medications Current Medication List: was personally reviewed by me Laboratory Data Attestation: I reviewed the patient's lab results. 02/10/25 21:15 02/10/25 21:15 Lab Results 02/10/25 02/10/25 Range/Units 21:15 21:44 WBC 10.50 (4.8-10.8) K/ul RBC 4.55 (4.20-5.40) M/uL Hgb 13.5 (12.0-16.0) g/dl Hct 41.4 (37.0-47.0) % MCV 91.0 (80.0-100.0) fL MCH 29.7 (25.0-34.0) pg MCHC 32.6 (32.0-36.0) g/dL RDW Std Deviation 52.1 H (36.4-46.3) fL RDW Coeff of Cindy 15.6 H (11.5-14.5) % Plt Count 228 (130-400) K/uL MPV 10.8 (9.4-12.4) fL Immature Gran % (Auto) 0.3 % Neut % (Auto) 66.6 % Lymph % (Auto) 19.7 % [place] % (Auto) 10.3 % Eos % (Auto) 2.5 % Baso % (Auto) 0.6 % Neut # (Auto) 7.00 H (1.40-6.50) K/uL Lymph # (Auto) 2.07 (1.20-3.40) K/uL [place] # (Auto) 1.08 H (0.11-0.59) K/uL Eos # (Auto) 0.26 (0.00-0.50) K/uL Baso # (Auto) 0.06 (0.00-0.20) K/uL Immature Gran # (Auto) 0.03 (0.01-0.20) K/uL PT 20.7 H (9.0-12.0) Seconds INR 2.0 H (0.9-1.1) APTT 35 H (21-31) Seconds PTT Ratio 1.3 Sodium 140 (136-145) mmol/L Potassium 3.6 (3.5-5.1) mmol/L Chloride 104 (98-107) mmol/L Carbon Dioxide 25 (21-32) mmol/L Anion Gap 11 (3-11) BUN 27 H (6-23) mg/dl Creatinine 1.20 (0.6-1.2) mg/dl Est Cr Clr Drug Dosing 42.2 ml/min eGFR 46.62 BUN/Creatinine Ratio 22.5 H (10-20) Glucose 117 H (70-99(Fasting)) mg/dl Lactate 1.1 (0.4-2.0) mmol/L Calcium 9.7 (8.6-10.3) mg/dl Magnesium 1.9 (1.7-2.4) mg/dl Total Bilirubin 1.9 H (0.2-1.0) mg/dl AST 38 (13-39) U/L ALT 27 (7-52) U/L Alkaline Phosphatase 215 H (34-104) U/L Troponin I High Sens 12.2 (0-14) pg/ml B-Natriuretic Peptide 412 H (0-100) pg/ml Total Protein 7.8 (6.0-8.3) gm/dl Albumin 3.8 (3.4-5.0) gm/dl Globulin 4.0 (2.5-4.0) gm/dl Albumin/Globulin Ratio 1.0 (0.9-2) Adenovirus (PCR) Not Detected (NotDetected) B. pertussis DNA (PCR) Not Detected (NotDetected) B.parapertussis DNA PCR Not Detected (NotDetected) C. pneumoniae DNA (PCR) Not Detected (NotDetected) Coronavirus OC43 (PCR) Not Detected (NotDetected) Coronavirus HKU1 (PCR) Not Detected (NotDetected) Coronavirus 229E (PCR) Not Detected (NotDetected) SARS-CoV-2 (PCR) Not Detected (NotDetected) Coronavirus NL63 (PCR) Not Detected (NotDetected) Human Metapneumovir PCR Not Detected (NotDetected) Influenza Type A (PCR) Not Detected (NotDetected) Influenza Type B (PCR) Not Detected (NotDetected) M. pneumoniae (PCR) Not Detected (NotDetected) Parainfluenza 1 (PCR) Not Detected (NotDetected) Parainfluenza 2 (PCR) Not Detected (NotDetected) Parainfluenza 3 (PCR) Not Detected (NotDetected) Parainfluenza 4 (PCR) Not Detected (NotDetected) RSV (PCR) Not Detected (NotDetected) Entero/Rhino (PCR) Not Detected (NotDetected) Administered Medications Discontinued Medications Albuterol (Albut/Ipratrop 3mg/0.5mg Neb 3 Ml Vial) 3 ml NEB NOW STA; Protocol Stop: 02/10/25 21:22 Last Admin: 02/10/25 21:48 Dose: 3 ml Documented By: ANGELA Ceftriaxone Sodium (Rocephin) 2,000 mg in 50 mls @ 100 mls/hr IV NOW STA Stop: 02/10/25 22:29 Last Admin: 02/10/25 22:11 Dose: 100 mls/hr Documented By: vgr Methylprednisolone (Methylprednisolone 125 Mg/2 Ml Vial) 60 mg IV NOW STA Stop: 02/10/25 21:22 Last Admin: 02/10/25 21:48 Dose: 60 mg Documented By: ANGELA Imaging Data Radiologist's Impression: Chest X-Ray 02/10/25 21:09 Exam(s): XR CXR 1 VIEW EXAM: XR Chest, 1 View CLINICAL HISTORY: Dyspnea. TECHNIQUE: Frontal view of the chest. COMPARISON: Chest single view 06/13/2024 FINDINGS: Lungs: No focal airspace consolidation. No radiographic evidence for florid CHF. Similar somewhat coarse presumed chronic interstitial markings, not significantly altered. Pleural space: Unremarkable. No pneumothorax. No large pleural effusion. Heart: Cardiac silhouette is within normal limits, accounting for portable technique. Mediastinum: No significant abnormality identified. The trachea is midline. Bones/joints: Unremarkable. No acute fracture. Tubes, lines and devices: Left subclavian approach dual lead pacer. IMPRESSION: No acute cardiopulmonary process or significant alteration from the prior examination. Electronically signed by: Corona Franklin MD 02/10/25 22:31 PM Discharge Plan Visit Data Chief Complaint: Illness Stated Complaint: illness ED Provider: Mayank Johnson Discharge Problem: SOB (shortness of breath), COPD exacerbation, Bronchitis, Elevated brain natriuretic peptide (BNP) level Patient Disposition: Admitted As Inpatient Condition: Fair Forms Stand Alone Forms: My [facility] Prescriptions Prescriptions: No Action warfarin [Jantoven] 2 mg Tablet 2 mg PO WK Rx Instructions: Tu @ 4:00pm amiodarone 200 mg tablet 200 mg PO HS famotidine 20 mg tablet 20 mg PO QAM metoprolol succinate 25 mg tablet extended release 24 hr 37.5 mg PO QAM albuterol sulfate [Ventolin HFA] 90 mcg/actuation HFA aerosol inhaler 2 puff INHALATION Q4 PRN (Reason: Shortness Of Breath Or Wheezing) fluticasone propionate 50 mcg/actuation [place],Suspension 2 spray INTRANASAL QAM Anoro Ellipta 62.5-25 mcg/actuation blister with device 1 inh INHALATION QAM omeprazole 40 mg capsule,delayed release(DR/EC) 40 mg PO BID (DME) Oxygen Home Liters Per Minute See Rx Instructions .Route Qty: 1 0RF Rx Instructions: 2LPM with ambulation warfarin 1 mg Tablet 1 mg PO 6XWK Rx Instructions: Sun/Mon/Mon//FRI/SAT at 4:00pm ketoconazole 2 % shampoo 1 applic TOPICAL 3XWK levothyroxine 75 mcg tablet 75 mcg PO DAILYBB gabapentin 300 mg capsule 300 mg PO HS gabapentin 100 mg capsule 100 mg PO QAM Rx Instructions: PT STATES SHE ADJUSTED HER DOSE HERSELF TO 200 MG IN MORNINGS atorvastatin 10 mg tablet 10 mg PO QAM cholecalciferol (vitamin D3) [Vitamin D3] 50 mcg (2,000 unit) Tablet 50 mcg PO QAM cyanocobalamin (vitamin B-12) 100 mcg Tablet 100 mcg PO QAM ascorbic acid (vitamin C) [Vitamin C] 500 mg Tablet 500 mg PO Q OTHER DAY doxycycline hyclate 100 mg Capsule 100 mg PO BID Qty: 4 0RF furosemide 40 mg Tablet 60 mg PO DAILY Qty: 60 0RF prednisone 20 mg Tablet 20 mg PO DAILY Qty: 2 0RF guaifenesin [Mucinex] 600 mg tablet extended release 12hr 600 mg PO BID Qty: 60 0RF potassium chloride 10 mEq tablet,ER particles/crystals 20 meq PO QAM Qty: 60 0RF Referrals Referrals: Agnes Saavedra DO [Primary Care Provider] -
[2025-02-10] MEDS: ALBUT/IPRATROP 3MG/0.5MG NEB 3 ML VIAL NEB STA (21:48)
[2025-02-10 21:49] LABS: Alanine Aminotransferase 27.0 U/L (7-52); Albumin Globulin Ratio 1.0 (0.9-2); Albumin Level 3.8 gm/dl (3.4-5.0); Alkaline Phosphatase 215.0 U/L (34-104); Anion Gap 11.0 (3-11); Bilirubin,Total 1.9 mg/dl (0.2-1.0); Blood Urea Nitrogen 27.0 mg/dl (6-23); Calcium 9.7 mg/dl (8.6-10.3); Carbon Dioxide 25.0 mmol/L (21-32); Chloride 104.0 mmol/L (98-107); Creatinine Clr Calc Pharmacy 42.2 ml/min; Globulin 4.0 gm/dl (2.5-4.0); Glucose 117.0 mg/dl (70-99(Fasting)); Magnesium 1.9 mg/dl (1.7-2.4); Potassium 3.6 mmol/L (3.5-5.1); Sodium 140.0 mmol/L (136-145); Total Protein 7.8 gm/dl (6.0-8.3)
[2025-02-10 22:01] LABS: INR 2.0 (0.9-1.1); Partial Thromboplastin Time 35 Seconds (21-31); Prothrombin Time 20.7 Seconds (9.0-12.0)
[2025-02-10] MEDS: cefTRIAXone SODIUM 2,000 MG/50 ML BAG IV STA (22:11)
[2025-02-10 22:19] LABS: Chlamydia pneumoniae PCR Not Detected (NotDetected); Coronavirus 229E PCR Not Detected (NotDetected); Coronavirus CoV-2 (COVID19)PCR Not Detected (NotDetected); Coronavirus HKU1 PCR Not Detected (NotDetected); Coronavirus NL63 PCR Not Detected (NotDetected); Coronavirus OC43PCR Not Detected (NotDetected); Human Metapneumovirus PCR Not Detected (NotDetected); Parainfluenza Virus 1 PCR Not Detected (NotDetected); Parainfluenza Virus 2 PCR Not Detected (NotDetected); Parainfluenza Virus 3 PCR Not Detected (NotDetected); Parainfluenza Virus 4 PCR Not Detected (NotDetected); Respiratory Syncytial VirusPCR Not Detected (NotDetected); Rhinovirus/Enterovirus PCR Not Detected (NotDetected)
--- NOTE | 2025-02-10 22:32 | XRay Report ---
Exam(s): XR CXR 1 VIEW EXAM: XR Chest, 1 View CLINICAL HISTORY: Dyspnea. TECHNIQUE: Frontal view of the chest. COMPARISON: Chest single view 06/13/2024 FINDINGS: Lungs: No focal airspace consolidation. No radiographic evidence for florid CHF. Similar somewhat coarse presumed chronic interstitial markings, not significantly altered. Pleural space: Unremarkable. No pneumothorax. No large pleural effusion. Heart: Cardiac silhouette is within normal limits, accounting for portable technique. Mediastinum: No significant abnormality identified. The trachea is midline. Bones/joints: Unremarkable. No acute fracture. Tubes, lines and devices: Left subclavian approach dual lead pacer. IMPRESSION: No acute cardiopulmonary process or significant alteration from the prior examination. Electronically signed by: Corona Franklin MD 02/10/25 22:31 PM
[2025-02-10] MEDS: FUROSEMIDE 40 MG/4 ML VIAL IV ONE (22:47)
[2025-02-10] MEDS: MAGNESIUM SULFATE / D5W 1 GM/100 ML BAG IV ONE (22:49)
--- NOTE | 2025-02-10 23:47 | History & Physical Report ---
Date of Service February 10, 2025 Assessment & Plan (1) COPD exacerbation: Plan: Assessment and plan below following discussion of case with ED provider and reviewing patient history/pertinent normal/abnormal diagnostic test results. COPD exacerbation/complicated bronchitis hx chronic respiratory failure secondary to COPD on home O2/pulmonary hypertension No sepsis for now chronic diastolic heart failure (EF 60%, TTE 2024), patient euvolemic to dry valvular heart disease (mild AR/MR/TR) SSS status post PPM on Coumadin, patient currently A-fib, rate controlled, INR therapeutic hypertension, stable hypothyroidism, euthyroid as of recent outpatient TSH prediabetes, hemoglobin A1c 6.1 last June 2024 Chronic anemia, hemoglobin better than baseline past tobacco abuse OBS Admit to med/tele Doxycycline, nebs RTC, prednisone course Pulmonology consult if without improvement DVT prophylaxis. Coumadin INR goal between 2 and 3 Full code Text document was generated using [employer] voice recognition software. It may contain grammatical or spelling errors. Kindly contact undersigned for clarification of any documentation item in question. History of Present Illness Chief Complaint: Worsening cough, shortness of breath Primary Care Provider: Agnes Saavedra, History obtained from patient and records. Medical history significant for chronic diastolic heart failure (EF 60%, TTE 2024), valvular heart disease (mild AR/MR/TR), SSS status post PPM on Coumadin, hypertension, chronic respiratory failure secondary to COPD on home O2, pulmonary hypertension, hypothyroidism, prediabetes, chronic anemia (baseline hemoglobin 11), GERD, past tobacco abuse. Last confinement June 2024 for decompensated heart failure/COPD exacerbation. 5 days history of junky cough symptoms with worsening SOB. Denies chest pain. Denies aspiration. Not sure about sick contacts. Denies fluid retention. No fever, no chills. Ceftriaxone, neb treatment, Solu-Medrol administered at the ER. 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 Allergies Allergy/AdvReac Type Severity Reaction Status Date / Time amoxicillin Allergy Severe Itching Verified 02/10/25 22:18 ciprofloxacin Allergy Severe Itching Verified 02/10/25 22:18 adhesive Allergy Intermediate BLISTERS Verified 02/10/25 22:18 sulfamethoxazole AdvReac Severe CAUSED Verified 02/10/25 22:18 [From Bactrim] KIDNEY PROBLEMS trimethoprim [From Bactrim] AdvReac Severe CAUSED Verified 02/10/25 22:18 KIDNEY PROBLEMS cephalexin AdvReac Intermediate REDNESS, Verified 02/10/25 22:18 FLUSHING, DIARRHEA Home Medications Medication Instructions Recorded Confirmed Type warfarin 2 mg tablet (Jantoven) 2 mg PO 3XWK 12/12/17 02/10/25 History albuterol sulfate 90 mcg/actuation 2 puff inhalation Q4 PRN Shortness 07/13/20 02/10/25 History aerosol inhaler (Ventolin HFA) Of Breath Or Wheezing famotidine 20 mg tablet 20 mg PO QAM 07/13/20 02/10/25 History fluticasone propionate 50 2 spray intranasal QAM 07/13/20 02/10/25 History mcg/actuation nasal spray,suspension metoprolol succinate 25 mg 50 mg PO QAM 07/13/20 02/10/25 History tablet,extended release 24 hr Oxygen Home #1 ea 03/26/21 06/14/24 Rx omeprazole 40 mg capsule,delayed 40 mg PO BID 04/14/21 02/10/25 History release ascorbic acid (vitamin C) 500 mg 500 mg PO Q OTHER DAY 06/13/24 02/10/25 History tablet (Vitamin C) cholecalciferol (vitamin D3) 50 50 mcg PO QAM 06/13/24 02/10/25 History mcg (2,000 unit) tablet (Vitamin D3) cyanocobalamin (vitamin B-12) 100 100 mcg PO QAM 06/13/24 02/10/25 History mcg tablet gabapentin 300 mg capsule 300 mg PO BID 06/13/24 02/10/25 History ketoconazole 2 % shampoo 1 applic topical DIRECTED 06/13/24 02/10/25 History levothyroxine 75 mcg tablet 75 mcg PO DAILYBB 06/13/24 02/10/25 History benzonatate 100 mg capsule 100 mg PO TID PRN Cough 02/10/25 02/10/25 History clindamycin phosphate 1 % topical 1 applic topical BID PRN ITCHY 02/10/25 02/10/25 History gel AREAS NEEDED diclofenac sodium 1 % topical gel 2 g topical QID PRN JOINT PAIN 02/10/25 02/10/25 History fluticasone fur. 100 mcg-umeclid 1 inh inhalation DAILY 02/10/25 02/10/25 History 62.5 mcg-vilant 25 mcg inhalat.powder (Trelegy Ellipta) furosemide 20 mg tablet 40 mg PO 4XWK 02/10/25 02/10/25 History furosemide 20 mg tablet 60 mg PO 3XWK 02/10/25 02/10/25 History potassium chloride 10 mEq 10 meq PO QAM 02/10/25 02/10/25 History tablet,extended release(part/cryst) triamcinolone acetonide 0.1 % 1 applic topical BID PRN NEEDED 02/10/25 02/10/25 History topical ointment warfarin 2 mg tablet 1 mg PO 4XWK 02/10/25 02/10/25 History Past Med/Surg History Problem List (Updated 02/10/25 @ 22:39 by Mayank Johnson MD) Elevated brain natriuretic peptide (BNP) level (Acute) Bronchitis (Acute) COPD exacerbation (Acute) SOB (shortness of breath) (Acute) Prediabetes Acute renal failure superimposed on stage 3 chronic kidney disease Diastolic heart failure Leukocytosis (Acute) COPD exacerbation (Acute) Paroxysmal atrial fibrillation DVT prophylaxis History of COVID-19 Hematoma of leg Acute on chronic respiratory failure with hypoxia (Acute) Acute on chronic diastolic CHF (congestive heart failure) Elevated INR (Acute) Diverticulosis (Chronic) Medical History Chronic respiratory failure with hypoxia Chronic diastolic CHF (congestive heart failure) Pneumonia due to COVID-19 virus CKD (chronic kidney disease) stage 3, GFR 30-59 ml/min Anticoagulated on warfarin Tachy-silvestre syndrome Atrial fibrillation COPD (chronic obstructive pulmonary disease) Hypertension GERD (gastroesophageal reflux disease) Tobacco abuse Abdominal aneurysm Surgical History H/O tubal ligation History of cardiac pacemaker "10/04/17 Dr. De" History of colonoscopy with polypectomy History of lumpectomy of left breast History of partial colectomy "secondary to diverticulitis" History of tubal ligation Family History Mother Colorectal cancer Myocardial infarction Diabetes Father Diabetes Sister Skin cancer Social History Smoking Status: Former smoker Tobacco Type: Cigarettes Cigarettes Per Day: 10; Second Hand Exposure: No; Do You Dip or Chew Tobacco: No; Tobacco Cessation Education Requested by Patient: No Hx Alcohol Use: No Hx Substance Use: No Preferred Language: Andorran Communication Ability: Effective Premium Note Interest Calculator Clerk Required: No Beliefs That Will Affect Care: None marital status: Current Living Situation: Family Current Living Situation Comment: lives with son Other Information That Helps Us Care for You: No Feels Safe at Home: Yes Safety Concerns: Feels Safe At This Time Assistive Devices: Cane, Glasses, Oxygen - Continuous and Walker Assistive Devices Comment: raised shower seat Review of Systems Review of Systems: As per HPI, all other systems reviewed and negative Physical Exam Physical Exam: GENERAL: Comfortable, pleasant, obese, no respiratory distress SKIN: Normal color, warm HEENT: Bespectacled, pink palpebral conjunctivae, no ptosis, dry buccal mucosa, nasal cannula in place NECK : Supple, no tenderness CHEST : Decreased breath sounds, diffuse expiratory wheezes,, no tenderness HEART : Irregular, no obvious murmurs ABDOMEN: Some distention, nontender EXTREMITIES : Minimal LE swelling, no LE tenderness, palpable pulses, no other conspicuous deformities noted NEUROLOGIC : Coherent, no facial asymmetry, no other gross focality Results & Data Results & Data Vital Signs (Past 12 Hours) Vital Signs Pulse Pulse Resp BP BP Pulse Ox O2 Del Method 02/10/25 23:15 83 18 120/63 98 Room Air 02/10/25 21:44 98 H 02/10/25 21:17 81 21 100 Nasal Cannula 02/10/25 21:07 82 18 120/63 100 Room Air 02/10/25 21:07 76 18 120/63 92 Nasal Cannula O2 Flow Rate 02/10/25 23:15 02/10/25 21:44 02/10/25 21:17 3 02/10/25 21:07 02/10/25 21:07 3 Laboratory Results Laboratory Results WBC 10.50 K/ul (4.8-10.8) 02/10/25 21:15 RBC 4.55 M/uL (4.20-5.40) 02/10/25 21:15 Hgb 13.5 g/dl (12.0-16.0) 02/10/25 21:15 Hct 41.4 % (37.0-47.0) 02/10/25 21:15 MCV 91.0 fL (80.0-100.0) 02/10/25 21:15 MCH 29.7 pg (25.0-34.0) 02/10/25 21:15 MCHC 32.6 g/dL (32.0-36.0) 02/10/25 21:15 RDW Std Deviation 52.1 fL (36.4-46.3) H 02/10/25 21:15 RDW Coeff of Cindy 15.6 % (11.5-14.5) H 02/10/25 21:15 Plt Count 228 K/uL (130-400) 02/10/25 21:15 MPV 10.8 fL (9.4-12.4) 02/10/25 21:15 Immature Gran % (Auto) 0.3 % 02/10/25 21:15 Neut % (Auto) 66.6 % 02/10/25 21:15 Lymph % (Auto) 19.7 % 02/10/25 21:15 [place] % (Auto) 10.3 % 02/10/25 21:15 Eos % (Auto) 2.5 % 02/10/25 21:15 Baso % (Auto) 0.6 % 02/10/25 21:15 Neut # (Auto) 7.00 K/uL (1.40-6.50) H 02/10/25 21:15 Lymph # (Auto) 2.07 K/uL (1.20-3.40) 02/10/25 21:15 [place] # (Auto) 1.08 K/uL (0.11-0.59) H 02/10/25 21:15 Eos # (Auto) 0.26 K/uL (0.00-0.50) 02/10/25 21:15 Baso # (Auto) 0.06 K/uL (0.00-0.20) 02/10/25 21:15 Immature Gran # (Auto) 0.03 K/uL (0.01-0.20) 02/10/25 21:15 PT 20.7 Seconds (9.0-12.0) H 02/10/25 21:15 INR 2.0 (0.9-1.1) H 02/10/25 21:15 APTT 35 Seconds (21-31) H 02/10/25 21:15 PTT Ratio 1.3 02/10/25 21:15 Sodium 140 mmol/L (136-145) 02/10/25 21:15 Potassium 3.6 mmol/L (3.5-5.1) 02/10/25 21:15 Chloride 104 mmol/L (98-107) 02/10/25 21:15 Carbon Dioxide 25 mmol/L (21-32) 02/10/25 21:15 Anion Gap 11 (3-11) 02/10/25 21:15 BUN 27 mg/dl (6-23) H 02/10/25 21:15 Creatinine 1.20 mg/dl (0.6-1.2) 02/10/25 21:15 Est Cr Clr Drug Dosing 42.2 ml/min 02/10/25 21:15 eGFR 46.62 02/10/25 21:15 BUN/Creatinine Ratio 22.5 (10-20) H 02/10/25 21:15 Glucose 117 mg/dl (70-99(Fasting)) H 02/10/25 21:15 Lactate 1.1 mmol/L (0.4-2.0) 02/10/25 21:44 Calcium 9.7 mg/dl (8.6-10.3) 02/10/25 21:15 Magnesium 1.9 mg/dl (1.7-2.4) 02/10/25 21:15 Total Bilirubin 1.9 mg/dl (0.2-1.0) H 02/10/25 21:15 AST 38 U/L (13-39) 02/10/25 21:15 ALT 27 U/L (7-52) 02/10/25 21:15 Alkaline Phosphatase 215 U/L (34-104) H 02/10/25 21:15 Troponin I High Sens 12.2 pg/ml (0-14) 02/10/25 21:15 B-Natriuretic Peptide 412 pg/ml (0-100) H 02/10/25 21:44 Total Protein 7.8 gm/dl (6.0-8.3) 02/10/25 21:15 Albumin 3.8 gm/dl (3.4-5.0) 02/10/25 21:15 Globulin 4.0 gm/dl (2.5-4.0) 02/10/25 21:15 Albumin/Globulin Ratio 1.0 (0.9-2) 02/10/25 21:15 Adenovirus (PCR) Not Detected (NotDetected) 02/10/25 21:15 B. pertussis DNA (PCR) Not Detected (NotDetected) 02/10/25 21:15 B.parapertussis DNA PCR Not Detected (NotDetected) 02/10/25 21:15 C. pneumoniae DNA (PCR) Not Detected (NotDetected) 02/10/25 21:15 Coronavirus OC43 (PCR) Not Detected (NotDetected) 02/10/25 21:15 Coronavirus HKU1 (PCR) Not Detected (NotDetected) 02/10/25 21:15 Coronavirus 229E (PCR) Not Detected (NotDetected) 02/10/25 21:15 SARS-CoV-2 (PCR) Not Detected (NotDetected) 02/10/25 21:15 Coronavirus NL63 (PCR) Not Detected (NotDetected) 02/10/25 21:15 Human Metapneumovir PCR Not Detected (NotDetected) 02/10/25 21:15 Influenza Type A (PCR) Not Detected (NotDetected) 02/10/25 21:15 Influenza Type B (PCR) Not Detected (NotDetected) 02/10/25 21:15 M. pneumoniae (PCR) Not Detected (NotDetected) 02/10/25 21:15 Parainfluenza 1 (PCR) Not Detected (NotDetected) 02/10/25 21:15 Parainfluenza 2 (PCR) Not Detected (NotDetected) 02/10/25 21:15 Parainfluenza 3 (PCR) Not Detected (NotDetected) 02/10/25 21:15 Parainfluenza 4 (PCR) Not Detected (NotDetected) 02/10/25 21:15 RSV (PCR) Not Detected (NotDetected) 02/10/25 21:15 Entero/Rhino (PCR) Not Detected (NotDetected) 02/10/25 21:15 Impressions Chest X-Ray 02/10/25 21:09 Exam(s): XR CXR 1 VIEW EXAM: XR Chest, 1 View CLINICAL HISTORY: Dyspnea. TECHNIQUE: Frontal view of the chest. COMPARISON: Chest single view 06/13/2024 FINDINGS: Lungs: No focal airspace consolidation. No radiographic evidence for florid CHF. Similar somewhat coarse presumed chronic interstitial markings, not significantly altered. Pleural space: Unremarkable. No pneumothorax. No large pleural effusion. Heart: Cardiac silhouette is within normal limits, accounting for portable technique. Mediastinum: No significant abnormality identified. The trachea is midline. Bones/joints: Unremarkable. No acute fracture. Tubes, lines and devices: Left subclavian approach dual lead pacer. IMPRESSION: No acute cardiopulmonary process or significant alteration from the prior examination. Electronically signed by: Corona Franklin MD 02/10/25 22:31 PM Diagnostic Findings EKG as per my interpretation :Rate 80, A-fib, normal axis, T wave inversion inferior and anterolateral leads
[2025-02-11] MEDS: DOXYCYCLINE HYCLATE 100 MG in DEXTROSE 5% MINI-B 100 ML IV STA (00:09)
[2025-02-11] MEDS ORDERED: DICLOFENAC SOD 1% GEL 100 GM TUBE EXT PRN (00:14)
[2025-02-11] MEDS ORDERED: PROMETHAZINE 6.25 MG/50.25 ML BAG IV PRN (00:15)
[2025-02-11] MEDS: ALBUMIN 25% 25 GM/100 ML VIAL IV ONE (00:26)
[2025-02-11 04:54] LABS: Hematocrit (blood only) 37.9 % (37.0-47.0); Hemoglobin 11.9 g/dl (12.0-16.0); Mean Corpuscular Hemoglobin 28.1 pg (25.0-34.0); Mean Corpuscular Volume 89.6 fL (80.0-100.0); Platelet Count 192 K/uL (130-400); RDW Standard Deviation 51.8 fL (36.4-46.3); Red Blood Count 4.23 M/uL (4.20-5.40); White Blood Count 9.14 K/ul (4.8-10.8)
[2025-02-11 05:08] LABS: Anion Gap 10.0 (3-11); Blood Urea Nitrogen 24.0 mg/dl (6-23); Calcium 9.4 mg/dl (8.6-10.3); Carbon Dioxide 23.0 mmol/L (21-32); Chloride 106.0 mmol/L (98-107); Creatinine Clr Calc Pharmacy 53.3 ml/min; Glucose 180.0 mg/dl (70-99(Fasting)); Potassium 4.3 mmol/L (3.5-5.1); Sodium 139.0 mmol/L (136-145)
[2025-02-11 05:17] LABS: Immature Granulocytes # (auto) 0.04 K/uL (0.01-0.20); Immature Granulocytes % (auto) 0.4 %; Ovalocytes 1+; Polychromasia 1+
[2025-02-11 06:05] LABS: INR 2.2 (0.9-1.1); Prothrombin Time 21.9 Seconds (9.0-12.0)
[2025-02-11] MEDS: LEVOTHYROXINE SODIUM 75 MCG TABLET PO SCH (06:16)
[2025-02-11 06:39] LABS: Appearance Urine Cloudy (Clear); Bacteria Urine Automated 4+ (None Seen); Cast Urine Automated 0-2 /lpf (0-2); Glucose Urine UA Negative (Negative); RBC Urine Automated 0-2 /hpf (0-2); WBC Urine Automated 21-50 /hpf (0-5)
[2025-02-11] MEDS: LEVALBUTEROL 1.25 MG/3 ML NEB NEB SCH (06:52)
[2025-02-11] MEDS: IPRATROPIUM BROMIDE NEB SOLN 0.02% 0.5MG/2.5ML VIAL INH SCH (06:52)
[2025-02-11] MEDS: CHOLECALCIFEROL 25 MCG (1000 UNITS) TAB PO SCH (08:11)
[2025-02-11] MEDS: FLUTICASONE PROPIONATE NA SPR 16 GM BTL SCH (08:12)
[2025-02-11] MEDS: CYANOCOBALAMIN (B-12) 100 MCG TABLET PO SCH (08:12)
[2025-02-11] MEDS: GABAPENTIN 300 MG CAP PO SCH (08:12)
[2025-02-11] MEDS: LORATADINE 10 MG TAB PO ONE (08:12)
[2025-02-11] MEDS: predniSONE 20 MG TAB PO SCH (08:12)
[2025-02-11] MEDS: METOPROLOL SUCC 50MG EXT REL TAB PO SCH (08:12)
[2025-02-11] MEDS: FAMOTIDINE 20 MG TAB PO SCH (08:13)
--- NOTE | 2025-02-11 12:02 | Electrocardiogram Report ---
Test Reason : Blood Pressure : */* mmHG Vent. Rate : 80 BPM Atrial Rate : * BPM P-R Int : * ms QRS Dur : 78 ms QT Int : 396 ms P-R-T Axes : * 39 -73 degrees QTcB Int : 456 ms Atrial fibrillation Abnormal ECG When compared with ECG of 13-Jun-2024 20:03, Significant changes have occurred Confirmed by Darshan Beaver ([id number]) on 02/11/2025 12:02:11 PM Referred By: REFERRED SELF Confirmed By: Darshan Beaver
--- NOTE | 2025-02-11 16:00 | Hospitalist Progress Note ---
Date of Service February 11, 2025 Assessment & Plan (1) COPD exacerbation: Plan: Per admitting provider w/ addendum: COPD exacerbation/complicated bronchitis hx chronic respiratory failure secondary to COPD on home O2/pulmonary hyperte nsion (on 4L) UTI No sepsis for now Received Rocephin and doxy in ED/ on admission, will continue nebs RTC, prednisone course Follow blood cultx, urine cultx, obtain sputum cultx Pulmonology consult if without improvement 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) SSS status post PPM on Coumadin, patient currently A-fib, rate controlled, INR therapeutic hypertension, stable hypothyroidism, euthyroid as of recent outpatient TSH prediabetes, hemoglobin A1c 6.1 last June 2024 Chronic anemia, hemoglobin better than baseline past tobacco abuse DVT prophylaxis. Coumadin INR goal between 2 and 3 Full code Admission and Anticipated Discharge Date Admission Date: February 10, 2025 Subjective Pt seen in follow up Presents w/ cough, also found to have UTI Was given Rocephin and doxy in ED Currently lying in bed in NAD, confirms she uses 4L of suppl. O2 at baseline Also reports dysuria for several days No abd. pain, n/v, + cough Review of Systems Review of Systems: All systems reviewed & are unremarkable except as noted in Subjective Physical Exam Physical Exam: GENERAL: Comfortable, pleasant, obese, no respiratory distress, on suppl. O2 4L (baseline) SKIN: Normal color, warm HEENT: NC/AT. Bespectacled, nasal cannula in place NECK : Supple, no tenderness CHEST : Decreased breath sounds HEART : Irregular, no obvious murmurs ABDOMEN: Some distention, nontender EXTREMITIES : Minimal LE swelling, no LE tenderness, moves extremities NEUROLOGIC : Coherent, no facial asymmetry, answers appropriately, speech is clear, moves extremities Results & Data Results & Data Vital Signs (Past 12 Hours) Vital Signs Temp Pulse Pulse Resp BP Pulse Ox Pulse Ox 02/11/25 15:09 80 18 127/79 97 02/11/25 12:36 36.6 C 76 16 142/86 H 98 02/11/25 12:35 36.6 C 76 16 142/86 H 98 02/11/25 10:12 94 H 14 99 02/11/25 08:46 87 02/11/25 07:33 02/11/25 07:33 02/11/25 07:33 97 02/11/25 07:33 36.0 C L 96 H 18 125/76 97 02/11/25 06:52 80 16 97 O2 Del Method O2 Del Method O2 Flow Rate O2 Flow Rate 02/11/25 15:09 Nasal Cannula 4 02/11/25 12:36 Nasal Cannula 4 02/11/25 12:35 Nasal Cannula 4 02/11/25 10:12 Nasal Cannula 4 02/11/25 08:46 02/11/25 07:33 Nasal Cannula 4 02/11/25 07:33 Nasal Cannula 4 02/11/25 07:33 Nasal Cannula 4 02/11/25 07:33 Nasal Cannula 4 02/11/25 06:52 Nasal Cannula 4 Laboratory Results 02/11/25 02/11/25 02/10/25 Range/Units 06:20 04:18 21:44 WBC 9.14 (4.8-10.8) K/ul RBC 4.23 (4.20-5.40) M/uL Hgb 11.9 L (12.0-16.0) g/dl Hct 37.9 (37.0-47.0) % MCV 89.6 (80.0-100.0) fL MCH 28.1 (25.0-34.0) pg MCHC 31.4 L (32.0-36.0) g/dL RDW Std Deviation 51.8 H (36.4-46.3) fL RDW Coeff of Cindy 15.6 H (11.5-14.5) % Plt Count 192 (130-400) K/uL MPV 10.8 (9.4-12.4) fL Immature Gran % (Auto) 0.4 % Neut % (Auto) 90.6 % Lymph % (Auto) 6.8 % [place] % (Auto) 1.9 % Eos % (Auto) 0.1 % Baso % (Auto) 0.2 % Neut # (Auto) 8.28 H (1.40-6.50) K/uL Lymph # (Auto) 0.62 L (1.20-3.40) K/uL [place] # (Auto) 0.17 (0.11-0.59) K/uL Eos # (Auto) 0.01 (0.00-0.50) K/uL Baso # (Auto) 0.02 (0.00-0.20) K/uL Immature Gran # (Auto) 0.04 (0.01-0.20) K/uL Polychromasia 1+ Ovalocytes 1+ PT 21.9 H (9.0-12.0) Seconds INR 2.2 H (0.9-1.1) APTT (21-31) Seconds PTT Ratio Sodium 139 (136-145) mmol/L Potassium 4.3 (3.5-5.1) mmol/L Chloride 106 (98-107) mmol/L Carbon Dioxide 23 (21-32) mmol/L Anion Gap 10 (3-11) BUN 24 H (6-23) mg/dl Creatinine 0.95 (0.6-1.2) mg/dl Est Cr Clr Drug Dosing 53.3 ml/min eGFR 61.71 BUN/Creatinine Ratio 25.3 H (10-20) Glucose 180 H (70-99(Fasting)) mg/dl Lactate 1.1 (0.4-2.0) mmol/L Calcium 9.4 (8.6-10.3) mg/dl Magnesium (1.7-2.4) mg/dl Total Bilirubin (0.2-1.0) mg/dl AST (13-39) U/L ALT (7-52) U/L Alkaline Phosphatase (34-104) U/L Troponin I High Sens (0-14) pg/ml B-Natriuretic Peptide 412 H (0-100) pg/ml Total Protein (6.0-8.3) gm/dl Albumin (3.4-5.0) gm/dl Globulin (2.5-4.0) gm/dl Albumin/Globulin Ratio (0.9-2) Urine Color Dark Yellow Urine Appearance Cloudy A (Clear) Urine pH 5.0 (4.5-7.5) Ur Specific [place] 1.030 (1.000-1.030) Urine Protein Trace H (Negative) Urine Glucose (UA) Negative (Negative) Urine Ketones Trace H (Negative) Urine Blood Negative (Negative) Urine Nitrite Positive A (Negative) Urine Bilirubin 1+ H (Negative) Urine Urobilinogen Negative (Negative) Ur Leukocyte Esterase 2+ H (Negative) Urine WBC (Auto) 21-50 H (0-5) /hpf Urine RBC (Auto) 0-2 (0-2) /hpf U Hyaline Cast (Auto) 0-2 (0-2) /lpf U Epithel Cells (Auto) 3-5 H (0-2) /hpf Urine Bacteria (Auto) 4+ H (None Seen) Urine Comment Adenovirus (PCR) (NotDetected) B. pertussis DNA (PCR) (NotDetected) B.parapertussis DNA PCR (NotDetected) C. pneumoniae DNA (PCR) (NotDetected) Coronavirus OC43 (PCR) (NotDetected) Coronavirus HKU1 (PCR) (NotDetected) Coronavirus 229E (PCR) (NotDetected) SARS-CoV-2 (PCR) (NotDetected) Coronavirus NL63 (PCR) (NotDetected) Human Metapneumovir PCR (NotDetected) Influenza Type A (PCR) (NotDetected) Influenza Type B (PCR) (NotDetected) M. pneumoniae (PCR) (NotDetected) Parainfluenza 1 (PCR) (NotDetected) Parainfluenza 2 (PCR) (NotDetected) Parainfluenza 3 (PCR) (NotDetected) Parainfluenza 4 (PCR) (NotDetected) RSV (PCR) (NotDetected) Entero/Rhino (PCR) (NotDetected) 02/10/25 Range/Units 21:15 WBC 10.50 (4.8-10.8) K/ul RBC 4.55 (4.20-5.40) M/uL Hgb 13.5 (12.0-16.0) g/dl Hct 41.4 (37.0-47.0) % MCV 91.0 (80.0-100.0) fL MCH 29.7 (25.0-34.0) pg MCHC 32.6 (32.0-36.0) g/dL RDW Std Deviation 52.1 H (36.4-46.3) fL RDW Coeff of Cindy 15.6 H (11.5-14.5) % Plt Count 228 (130-400) K/uL MPV 10.8 (9.4-12.4) fL Immature Gran % (Auto) 0.3 % Neut % (Auto) 66.6 % Lymph % (Auto) 19.7 % [place] % (Auto) 10.3 % Eos % (Auto) 2.5 % Baso % (Auto) 0.6 % Neut # (Auto) 7.00 H (1.40-6.50) K/uL Lymph # (Auto) 2.07 (1.20-3.40) K/uL [place] # (Auto) 1.08 H (0.11-0.59) K/uL Eos # (Auto) 0.26 (0.00-0.50) K/uL Baso # (Auto) 0.06 (0.00-0.20) K/uL Immature Gran # (Auto) 0.03 (0.01-0.20) K/uL Polychromasia Ovalocytes PT 20.7 H (9.0-12.0) Seconds INR 2.0 H (0.9-1.1) APTT 35 H (21-31) Seconds PTT Ratio 1.3 Sodium 140 (136-145) mmol/L Potassium 3.6 (3.5-5.1) mmol/L Chloride 104 (98-107) mmol/L Carbon Dioxide 25 (21-32) mmol/L Anion Gap 11 (3-11) BUN 27 H (6-23) mg/dl Creatinine 1.20 (0.6-1.2) mg/dl Est Cr Clr Drug Dosing 42.2 ml/min eGFR 46.62 BUN/Creatinine Ratio 22.5 H (10-20) Glucose 117 H (70-99(Fasting)) mg/dl Lactate (0.4-2.0) mmol/L Calcium 9.7 (8.6-10.3) mg/dl Magnesium 1.9 (1.7-2.4) mg/dl Total Bilirubin 1.9 H (0.2-1.0) mg/dl AST 38 (13-39) U/L ALT 27 (7-52) U/L Alkaline Phosphatase 215 H (34-104) U/L Troponin I High Sens 12.2 (0-14) pg/ml B-Natriuretic Peptide (0-100) pg/ml Total Protein 7.8 (6.0-8.3) gm/dl Albumin 3.8 (3.4-5.0) gm/dl Globulin 4.0 (2.5-4.0) gm/dl Albumin/Globulin Ratio 1.0 (0.9-2) Urine Color Urine Appearance (Clear) Urine pH (4.5-7.5) Ur Specific [place] (1.000-1.030) Urine Protein (Negative) Urine Glucose (UA) (Negative) Urine Ketones (Negative) Urine Blood (Negative) Urine Nitrite (Negative) Urine Bilirubin (Negative) Urine Urobilinogen (Negative) Ur Leukocyte Esterase (Negative) Urine WBC (Auto) (0-5) /hpf Urine RBC (Auto) (0-2) /hpf U Hyaline Cast (Auto) (0-2) /lpf U Epithel Cells (Auto) (0-2) /hpf Urine Bacteria (Auto) (None Seen) Urine Comment Adenovirus (PCR) Not Detected (NotDetected) B. pertussis DNA (PCR) Not Detected (NotDetected) B.parapertussis DNA PCR Not Detected (NotDetected) C. pneumoniae DNA (PCR) Not Detected (NotDetected) Coronavirus OC43 (PCR) Not Detected (NotDetected) Coronavirus HKU1 (PCR) Not Detected (NotDetected) Coronavirus 229E (PCR) Not Detected (NotDetected) SARS-CoV-2 (PCR) Not Detected (NotDetected) Coronavirus NL63 (PCR) Not Detected (NotDetected) Human Metapneumovir PCR Not Detected (NotDetected) Influenza Type A (PCR) Not Detected (NotDetected) Influenza Type B (PCR) Not Detected (NotDetected) M. pneumoniae (PCR) Not Detected (NotDetected) Parainfluenza 1 (PCR) Not Detected (NotDetected) Parainfluenza 2 (PCR) Not Detected (NotDetected) Parainfluenza 3 (PCR) Not Detected (NotDetected) Parainfluenza 4 (PCR) Not Detected (NotDetected) RSV (PCR) Not Detected (NotDetected) Entero/Rhino (PCR) Not Detected (NotDetected) Medications Administered Current Inpatient Medications Acetaminophen (Acetaminophen 325 Mg Tab) 650 mg PO QID PRN PRN Reason: pain/fever Stop: 03/13/25 00:14 Benzonatate (Benzonatate 100 Mg Capsule) 100 mg PO TID PRN PRN Reason: Cough Stop: 03/13/25 00:13 Cyanocobalamin (Cyanocobalamin (B-12) 100 Mcg Tablet) 100 mcg PO QAM [facility] Stop: 03/13/25 08:59 Last Admin: 02/11/25 08:12 Dose: 100 mcg Diclofenac Sodium (Diclofenac Sod 1% Gel 100 Gm Tube) 2 gm EXT QID PRN; Protocol PRN Reason: JOINT PAIN Stop: 03/13/25 00:13 Doxycycline Hyclate (Doxycycline Hyclate 100 Mg Cap) 100 mg PO BID [facility] Stop: 02/16/25 20:59 Famotidine ([facility]idine 20 Mg Tab) [facility] [place]: 03/13/25 08:59 Last Admin: 02/11/25 08:13 Dose: 20 mg Fluticasone Propionate (Fluticasone Propionate Na Spr 16 Gm Btl) [address] [facility] Stop: 03/13/25 08:59 Last Admin: 02/11/25 08:12 Dose: 2 sprays Gabapentin (Gabapentin 300 Mg Cap) 300 mg PO BID [facility] Stop: 03/13/25 08:59 Last Admin: 02/11/25 08:12 Dose: 300 mg Promethazine HCl (Phenergan) 6.25 mg in 50.25 mls @ 201 mls/hr IV Q6H PRN PRN Reason: Nausea And Vomiting Stop: 03/13/25 00:14 Ceftriaxone Sodium (Rocephin) 2,000 mg in 50 mls @ 100 mls/hr IV Q24H [facility] Stop: 02/16/25 19:59 Ipratropium [place] (Ipratropium [place] Neb Soln 0.02% 0.5mg/2.5ml Vial) 0.5 mg INH QIDR [facility] Stop: 03/13/25 06:59 Last Admin: 02/11/25 15:18 Dose: 0.5 mg Levalbuterol HCl (Levalbuterol 1.25 Mg/3 Ml Neb) 1.25 mg NEB QIDR [facility] Stop: 03/13/25 06:59 Last Admin: 02/11/25 15:18 Dose: 1.25 mg Levothyroxine Sodium (Levothyroxine Sodium 75 Mcg Tablet) 75 mcg PO DAILYBB [facility] Stop: 03/13/25 06:29 Last Admin: 02/11/25 06:16 Dose: 75 mcg Metoprolol Succinate (Metoprolol Succ 50mg Ext Rel Tab) 50 mg PO QAM [facility] Stop: 03/13/25 08:59 Last Admin: 02/11/25 08:12 Dose: 50 mg Oxycodone HCl (Oxycodone Hcl Ir 5 Mg Tab (Immediate Release)) 5 mg PO Q4H PRN PRN Reason: Pain Stop: 02/25/25 00:14 Pantoprazole Sodium (Pantoprazole 40 Mg Tab) 40 mg PO BID [facility] Stop: 03/13/25 08:59 Last Admin: 02/11/25 08:12 Dose: 40 mg Prednisone (Prednisone 20 Mg Tab) 40 mg PO DAILY [facility] Stop: 02/15/25 08:59 Last Admin: 02/11/25 08:12 Dose: 40 mg Vitamin D (Cholecalciferol 25 Mcg (1000 Units) Tab) 50 mcg PO QAM [facility] Stop: 03/13/25 08:59 Last Admin: 02/11/25 08:11 Dose: 50 mcg
[2025-02-11] MEDS: DOXYCYCLINE HYCLATE 100 MG CAP PO SCH (20:31)
[2025-02-11] MEDS: cefTRIAXone SODIUM 2,000 MG/50 ML BAG IV SCH (21:41)
[2025-02-12 06:41] LABS: Hematocrit (blood only) 37.6 % (37.0-47.0); Hemoglobin 11.9 g/dl (12.0-16.0); Mean Corpuscular Hemoglobin 28.8 pg (25.0-34.0); Mean Corpuscular Volume 91.0 fL (80.0-100.0); Platelet Count 201 K/uL (130-400); RDW Standard Deviation 51.9 fL (36.4-46.3); Red Blood Count 4.13 M/uL (4.20-5.40); White Blood Count 12.03 K/ul (4.8-10.8)
[2025-02-12 07:10] LABS: Anion Gap 8.0 (3-11); Blood Urea Nitrogen 27.0 mg/dl (6-23); Calcium 9.5 mg/dl (8.6-10.3); Carbon Dioxide 24.0 mmol/L (21-32); Chloride 107.0 mmol/L (98-107); Creatinine Clr Calc Pharmacy 56.3 ml/min; Glucose 161.0 mg/dl (70-99(Fasting)); Magnesium 2.1 mg/dl (1.7-2.4); Potassium 4.5 mmol/L (3.5-5.1); Sodium 139.0 mmol/L (136-145)
[2025-02-12 07:19] LABS: INR 2.6 (0.9-1.1); Prothrombin Time 25.6 Seconds (9.0-12.0)
--- NOTE | 2025-02-12 07:43 | Hospitalist Progress Note ---
Date of Service February 12, 2025 Assessment & Plan (1) COPD exacerbation: Plan: Per admitting provider w/ addendum: COPD exacerbation/complicated bronchitis hx chronic respiratory failure secondary to COPD on home O2/pulmonary hyperte nsion UTI No sepsis for now Received Rocephin and doxy in ED/ on admission, will continue nebs RTC, prednisone course Follow blood cultx, urine cultx, obtain sputum cultx Pulmonology consult if without improvement 02/12 Yesterday pt was on 4L, today on RA. Per her outpt pulmonology note - uses 4L of suppl. 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 Coumadin INR goal between 2 and 3 Full code Admission and Anticipated Discharge Date Admission Date: February 10, 2025 Subjective Pt seen in follow up Presents w/ cough, also found to have UTI Was given Rocephin and doxy in ED Currently sitting up in bed in NAD, on RA and saturating 93% - checked with RN at the bedside Pt ate the whole lunch Coughed up thick sputum --> sent to lab Yesterday pt was on 4L of suppl. O2 and she confirmed she uses 4L of suppl. O2 at baseline --> but now on RA and she says she uses 4L at night and then when she needs she uses 4L during the day, will investigate what her "official script is" Also reports had dysuria for several days, now much improved after getting abx No abd. pain, n/v, + cough Review of Systems Review of Systems: All systems reviewed & are unremarkable except as noted in Subjective Physical Exam Physical Exam: GENERAL: Comfortable, pleasant, obese, no respiratory distress, on RA SKIN: Normal color, warm HEENT: NC/AT. Bespectacled, nasal cannula in place NECK : Supple, no tenderness CHEST : Decreased breath sounds, minimal swelling HEART : Irregular, no obvious murmurs ABDOMEN: Some distention, nontender EXTREMITIES : Minimal LE swelling, no LE tenderness, moves extremities NEUROLOGIC : Coherent, no facial asymmetry, answers appropriately, speech is clear, moves extremities Results & Data Results & Data Vital Signs (Past 12 Hours) Vital Signs Temp Pulse Pulse Resp BP Pulse Ox O2 Del Method 02/12/25 07:23 88 02/12/25 07:11 80 16 100 Nasal Cannula 02/12/25 03:56 36.3 C L 98 H 16 103/69 99 Nasal Cannula 02/11/25 23:17 36.4 C L 89 18 113/75 99 Nasal Cannula 02/11/25 21:54 80 02/11/25 20:00 Nasal Cannula 02/11/25 19:55 36.3 C L 80 18 112/70 96 Nasal Cannula O2 Flow Rate 02/12/25 07:23 02/12/25 07:11 4 02/12/25 03:56 4.0 02/11/25 23:17 4.0 02/11/25 21:54 02/11/25 20:00 4 02/11/25 19:55 4.0 Laboratory Results 02/12/25 Range/Units 06:14 WBC 12.03 H (4.8-10.8) K/ul RBC 4.13 L (4.20-5.40) M/uL Hgb 11.9 L (12.0-16.0) g/dl Hct 37.6 (37.0-47.0) % MCV 91.0 (80.0-100.0) fL MCH 28.8 (25.0-34.0) pg MCHC 31.6 L (32.0-36.0) g/dL RDW Std Deviation 51.9 H (36.4-46.3) fL RDW Coeff of Cindy 15.6 H (11.5-14.5) % Plt Count 201 (130-400) K/uL MPV 10.8 (9.4-12.4) fL PT 25.6 H (9.0-12.0) Seconds INR 2.6 H (0.9-1.1) Sodium 139 (136-145) mmol/L Potassium 4.5 (3.5-5.1) mmol/L Chloride 107 (98-107) mmol/L Carbon Dioxide 24 (21-32) mmol/L Anion Gap 8 (3-11) BUN 27 H (6-23) mg/dl Creatinine 0.90 (0.6-1.2) mg/dl Est Cr Clr Drug Dosing 56.3 ml/min eGFR 65.84 BUN/Creatinine Ratio 30.0 H (10-20) Glucose 161 H (70-99(Fasting)) mg/dl Calcium 9.5 (8.6-10.3) mg/dl Phosphorus 3.3 (2.5-4.9) mg/dl Magnesium 2.1 (1.7-2.4) mg/dl Medications Administered Current Inpatient Medications Acetaminophen (Acetaminophen 325 Mg Tab) 650 mg PO QID PRN PRN Reason: pain/fever Stop: 03/13/25 00:14 Benzonatate (Benzonatate 100 Mg Capsule) 100 mg PO TID PRN PRN Reason: Cough Stop: 03/13/25 00:13 Cyanocobalamin (Cyanocobalamin (B-12) 100 Mcg Tablet) 100 mcg PO [facility] Stop: 03/13/25 08:59 Last Admin: 02/11/25 08:12 Dose: 100 mcg Diclofenac Sodium (Diclofenac Sod 1% Gel 100 Gm Tube) 2 gm EXT QID PRN; Protocol PRN Reason: JOINT PAIN Stop: 03/13/25 00:13 Doxycycline Hyclate (Doxycycline Hyclate 100 Mg Cap) 100 mg PO BID [facility] Stop: 02/16/25 20:59 Last Admin: 02/11/25 20:31 Dose: 100 mg Famotidine (Famotidine 20 Mg Tab) 20 mg PO [facility] Stop: 03/13/25 08:59 Last Admin: 02/11/25 08:13 Dose: 20 mg Fluticasone Propionate (Fluticasone Propionate Na Spr 16 Gm Btl) [facility]ays [facility] Stop: 03/13/25 08:59 Last Admin: 02/11/25 08:12 Dose: 2 sprays Gabapentin (Gabapentin 300 Mg Cap) 300 mg PO BID [facility] Stop: 03/13/25 08:59 Last Admin: 02/11/25 20:30 Dose: 300 mg Promethazine HCl (Phenergan) 6.25 mg in 50.25 mls @ 201 mls/hr IV Q6H PRN PRN Reason: Nausea And Vomiting Stop: 03/13/25 00:14 Ceftriaxone Sodium (Rocephin) 2,000 mg in 50 mls @ 100 mls/hr IV Q24H [facility] Stop: 02/16/25 19:59 Last Infusion: 02/11/25 22:13 Dose: Infused Ipratropium Flanagan (Ipratropium Flanagan Neb Soln 0.02% 0.5mg/2.5ml Vial) 0.5 mg INH QIDR [facility] Stop: 03/13/25 06:59 Last Admin: 02/12/25 07:11 Dose: 0.5 mg Levalbuterol HCl (Levalbuterol 1.25 Mg/3 Ml Neb) 1.25 mg NEB QIDR [facility] Stop: 03/13/25 06:59 Last Admin: 02/12/25 07:11 Dose: 1.25 mg Levothyroxine Sodium (Levothyroxine Sodium 75 Mcg Tablet) 75 mcg PO DAILYBB [facility] Stop: 03/13/25 06:29 Last Admin: 02/12/25 06:25 Dose: 75 mcg Metoprolol Succinate (Metoprolol Succ 50mg Ext Rel Tab) 50 mg PO QAM [facility] Stop: 03/13/25 08:59 Last Admin: 02/11/25 08:12 Dose: 50 mg Oxycodone HCl (Oxycodone Hcl Ir 5 Mg Tab (Immediate Release)) 5 mg PO Q4H PRN PRN Reason: Pain Stop: 02/25/25 00:14 Pantoprazole Sodium (Pantoprazole 40 Mg Tab) 40 mg PO BID [facility] Stop: 03/13/25 08:59 Last Admin: 02/11/25 20:31 Dose: 40 mg Prednisone (Prednisone 20 Mg Tab) 40 mg PO DAILY [facility] Stop: 02/15/25 08:59 Last Admin: 02/11/25 08:12 Dose: 40 mg Vitamin D (Cholecalciferol 25 Mcg (1000 Units) Tab) 50 mcg PO QAM [facility] Stop: 03/13/25 08:59 Last Admin: 02/11/25 08:11 Dose: 50 mcg
[2025-02-12] MEDS: BENZONATATE 100 MG CAPSULE PO PRN (21:24)
[2025-02-12] MEDS: ACETAMINOPHEN 325 MG TAB PO PRN (21:24)
[2025-02-13 06:50] LABS: Hematocrit (blood only) 36.9 % (37.0-47.0); Hemoglobin 12.0 g/dl (12.0-16.0); Mean Corpuscular Hemoglobin 29.6 pg (25.0-34.0); Mean Corpuscular Volume 90.9 fL (80.0-100.0); Platelet Count 211 K/uL (130-400); RDW Standard Deviation 51.8 fL (36.4-46.3); Red Blood Count 4.06 M/uL (4.20-5.40); White Blood Count 11.04 K/ul (4.8-10.8)
[2025-02-13 07:14] LABS: Anion Gap 7.0 (3-11); Blood Urea Nitrogen 29.0 mg/dl (6-23); Calcium 9.4 mg/dl (8.6-10.3); Carbon Dioxide 26.0 mmol/L (21-32); Chloride 107.0 mmol/L (98-107); Creatinine Clr Calc Pharmacy 44.7 ml/min; Glucose 128.0 mg/dl (70-99(Fasting)); Magnesium 2.1 mg/dl (1.7-2.4); Potassium 4.9 mmol/L (3.5-5.1); Sodium 140.0 mmol/L (136-145)
[2025-02-13 07:29] LABS: INR 1.9 (0.9-1.1); Prothrombin Time 19.5 Seconds (9.0-12.0)
--- NOTE | 2025-02-13 10:49 | Hospitalist Progress Note ---
Date of Service February 13, 2025 Assessment & Plan (1) COPD exacerbation: Plan: Per admitting provider w/ addendum: COPD exacerbation/complicated bronchitis hx chronic respiratory failure secondary to COPD on home O2/pulmonary hyperte nsion UTI No sepsis for now Received Rocephin and doxy in ED/ on admission, will continue nebs RTC, prednisone course Follow blood cultx, urine cultx, obtain sputum cultx - results pending Pulmonology consult if without improvement 02/12 Yesterday pt was on 4L, today on RA. Per her outpt pulmonology note - uses 4L of suppl. 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 Coumadin INR goal between 2 and 3 Full code Admission and Anticipated Discharge Date Admission Date: February 12, 2025 Subjective Pt seen in follow up Presents w/ cough, also found to have UTI Was given Rocephin and doxy in ED Currently sitting up in bed in [facility], on RA Yesterday coughed up thick sputum --> was sent to lab, results pending Says she was having a bad coughing spell last Also reports dysuria is now much improved No abd. pain, n/v, + cough Review of Systems Review of Systems: All systems reviewed & are unremarkable except as noted in Subjective Physical Exam Physical Exam: GENERAL: Comfortable, pleasant, obese, no respiratory distress, on RA SKIN: Normal color, warm HEENT: NC/AT. Bespectacled, nasal cannula in place NECK : Supple, no tenderness CHEST : Decreased breath sounds, minimal swelling HEART : Irregular, no obvious murmurs ABDOMEN: Some distention, nontender EXTREMITIES : Minimal LE swelling, no LE tenderness, moves extremities NEUROLOGIC : Coherent, no facial asymmetry, answers appropriately, speech is clear, moves extremities Results & Data Results & Data Vital Signs (Past 12 Hours) Vital Signs Temp Pulse Pulse Resp BP BP Pulse Ox 02/13/25 09:24 02/13/25 07:54 36.3 C L 80 18 119/81 100 02/13/25 06:13 80 18 94 02/13/25 05:20 78 02/13/25 03:40 36.3 C L 80 20 122/77 92 02/13/25 00:16 36.3 C L 79 20 108/69 98 02/12/25 23:21 O2 Del Method O2 Flow Rate 02/13/25 09:24 Room Air 02/13/25 07:54 Nasal Cannula 4 02/13/25 06:13 Nasal Cannula 4 02/13/25 05:20 02/13/25 03:40 Nasal Cannula 2 02/13/25 00:16 Nasal Cannula 2 02/12/25 23:21 Nasal Cannula 4 Laboratory Results 02/13/25 Range/Units 06:29 WBC 11.04 H (4.8-10.8) K/ul RBC 4.06 L (4.20-5.40) M/uL Hgb 12.0 (12.0-16.0) g/dl Hct 36.9 L (37.0-47.0) % MCV 90.9 (80.0-100.0) fL MCH 29.6 (25.0-34.0) pg MCHC 32.5 (32.0-36.0) g/dL RDW Std Deviation 51.8 H (36.4-46.3) fL RDW Coeff of Cindy 15.5 H (11.5-14.5) % Plt Count 211 (130-400) K/uL MPV 10.7 (9.4-12.4) fL PT 19.5 H (9.0-12.0) Seconds INR 1.9 H (0.9-1.1) Sodium 140 (136-145) mmol/L Potassium 4.9 (3.5-5.1) mmol/L Chloride 107 (98-107) mmol/L Carbon Dioxide 26 (21-32) mmol/L Anion Gap 7 (3-11) BUN 29 H (6-23) mg/dl Creatinine 1.10 (0.6-1.2) mg/dl Est Cr Clr Drug Dosing 44.7 ml/min eGFR 51.75 BUN/Creatinine Ratio 26.4 H (10-20) Glucose 128 H (70-99(Fasting)) mg/dl Calcium 9.4 (8.6-10.3) mg/dl Phosphorus 3.4 (2.5-4.9) mg/dl Magnesium 2.1 (1.7-2.4) mg/dl Medications Administered Current Inpatient Medications Acetaminophen (Acetaminophen 325 Mg Tab) 650 mg PO QID PRN PRN Reason: pain/fever Stop: 03/13/25 00:14 Last Admin: 02/12/25 21:24 Dose: 650 mg Benzonatate (Benzonatate 100 Mg Capsule) 100 mg PO TID PRN PRN Reason: Cough Stop: 03/13/25 00:13 Last Admin: 02/12/25 21:24 Dose: 100 mg Cyanocobalamin (Cyanocobalamin (B-12) 100 Mcg Tablet) [facility] Stop: 03/13/25 08:59 Last Admin: 02/13/25 08:58 Dose: 100 mcg Diclofenac Sodium (Diclofenac Sod 1% Gel 100 Gm Tube) 2 gm EXT QID PRN; Protocol PRN Reason: JOINT PAIN Stop: 03/13/25 00:13 Doxycycline Hyclate (Doxycycline Hyclate 100 Mg Cap) 100 mg PO BID [facility] Stop: 02/16/25 20:59 Last Admin: 02/13/25 08:58 Dose: 100 mg Famotidine (Famotidine 20 Mg Tab) 20 mg PO QAM [facility] Stop: 03/13/25 08:59 Last Admin: 02/13/25 08:59 Dose: 20 mg Fluticasone Propionate (Fluticasone Propionate Na Spr 16 Gm Btl) 2 sprays NA QAM [facility] Stop: 03/13/25 08:59 Last Admin: 02/13/25 08:55 Dose: Not Given Gabapentin (Gabapentin 300 Mg Cap) 300 mg PO BID [facility] Stop: 03/13/25 08:59 Last Admin: 02/13/25 08:58 Dose: 300 mg Promethazine HCl (Phenergan) 6.25 mg in 50.25 mls @ 201 mls/hr IV Q6H PRN PRN Reason: Nausea And Vomiting Stop: 03/13/25 00:14 Ceftriaxone Sodium (Rocephin) 2,000 mg in 50 mls @ 100 mls/hr IV Q24H [facility] Stop: 02/16/25 19:59 Last Infusion: 02/12/25 21:55 Dose: Infused Ipratropium Pray (Ipratropium Pray Neb Soln 0.02% 0.5mg/2.5ml Vial) 0.5 mg INH QIDR [facility] Stop: 03/13/25 06:59 Last Admin: 02/13/25 06:13 Dose: 0.5 mg Levalbuterol HCl (Levalbuterol 1.25 Mg/3 Ml Neb) 1.25 mg NEB QIDR [facility] Stop: 03/13/25 06:59 Last Admin: 02/13/25 06:13 Dose: 1.25 mg Levothyroxine Sodium (Levothyroxine Sodium 75 Mcg Tablet) 75 mcg PO DAILYBB [facility] Stop: 03/13/25 06:29 Last Admin: 02/13/25 05:16 Dose: 75 mcg Metoprolol Succinate (Metoprolol Succ 50mg Ext Rel Tab) [facility] Stop: 03/13/25 08:59 Last Admin: 02/13/25 08:58 Dose: 50 mg Oxycodone HCl (Oxycodone Hcl Ir 5 Mg Tab (Immediate Release)) 5 mg PO Q4H PRN PRN Reason: Pain Stop: 02/25/25 00:14 Pantoprazole Sodium (Pantoprazole 40 Mg Tab) 40 mg PO BID [facility] Stop: 03/13/25 08:59 Last Admin: 02/13/25 08:58 Dose: 40 mg Prednisone (Prednisone 20 Mg Tab) 40 mg PO DAILY [facility] Stop: 02/15/25 08:59 Last Admin: 02/13/25 08:58 Dose: 40 mg Vitamin D (Cholecalciferol 25 Mcg (1000 Units) Tab) 50 mcg PO QAM [facility] Stop: 03/13/25 08:59 Last Admin: 02/13/25 08:58 Dose: 50 mcg
[2025-02-14 07:59] LABS: Hematocrit (blood only) 39.1 % (37.0-47.0); Hemoglobin 12.4 g/dl (12.0-16.0); Mean Corpuscular Hemoglobin 28.7 pg (25.0-34.0); Mean Corpuscular Volume 90.5 fL (80.0-100.0); Platelet Count 211 K/uL (130-400); RDW Standard Deviation 51.7 fL (36.4-46.3); Red Blood Count 4.32 M/uL (4.20-5.40); White Blood Count 11.57 K/ul (4.8-10.8)
[2025-02-14 08:24] LABS: INR 1.7 (0.9-1.1); Prothrombin Time 17.5 Seconds (9.0-12.0)
[2025-02-14 08:34] LABS: Anion Gap 8.0 (3-11); Blood Urea Nitrogen 31.0 mg/dl (6-23); Calcium 9.6 mg/dl (8.6-10.3); Carbon Dioxide 25.0 mmol/L (21-32); Chloride 107.0 mmol/L (98-107); Creatinine Clr Calc Pharmacy 44.9 ml/min; Glucose 122.0 mg/dl (70-99(Fasting)); Potassium 4.7 mmol/L (3.5-5.1); Sodium 140.0 mmol/L (136-145)
[2025-02-14 09:02] LABS: Magnesium 2.1 mg/dl (1.7-2.4)
[2025-02-14 11:15] VITALS: BP 125/80; PULSE 81; RESP 18; TEMP 97.9; O2SAT 98
--- NOTE | 2025-02-14 13:31 | Discharge Summary ---
Date of Service February 14, 2025 Admission HPI Per Admitting Provider History obtained from patient and records. Medical history significant for chronic diastolic heart failure (EF 60%, TTE 2024), valvular heart disease (mild AR/MR/TR), SSS status post PPM on Coumadin, hypertension, chronic respiratory failure secondary to COPD on home O2, pulmonary hypertension, hypothyroidism, prediabetes, chronic anemia (baseline hemoglobin 11), GERD, past tobacco abuse. Last confinement June 2024 for decompensated heart failure/COPD exacerbation. 5 days history of junky cough symptoms with worsening SOB. Denies chest pain. Denies aspiration. Not sure about sick contacts. Denies fluid retention. No fever, no chills. Ceftriaxone, neb treatment, Solu-Medrol administered at the ER. 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 Admission Exam Per Admitting Provider GENERAL: Comfortable, pleasant, obese, no respiratory distress SKIN: Normal color, warm HEENT: Bespectacled, pink palpebral conjunctivae, no ptosis, dry buccal mucosa, nasal cannula in place NECK : Supple, no tenderness CHEST : Decreased breath sounds, diffuse expiratory wheezes,, no tenderness HEART : Irregular, no obvious murmurs ABDOMEN: Some distention, nontender EXTREMITIES : Minimal LE swelling, no LE tenderness, palpable pulses, no other conspicuous deformities noted NEUROLOGIC : Coherent, no facial asymmetry, no other gross focality Principal Diagnosis Complicated bronchitis, COPD exacerbation UTI Discharge Exam GENERAL: Comfortable, pleasant, obese, no respiratory distress, on RA SKIN: Normal color, warm HEENT: NC/AT. Bespectacled, nasal cannula in place NECK : Supple, no tenderness CHEST : Decreased breath sounds, minimal swelling HEART : Irregular, no obvious murmurs ABDOMEN: Some distention, nontender EXTREMITIES : Minimal LE swelling, no LE tenderness, moves extremities NEUROLOGIC : Coherent, no facial asymmetry, answers appropriately, speech is clear, moves extremities Discharge Data Allergies Allergy/AdvReac Type Severity Reaction Status Date / Time amoxicillin Allergy Severe Itching Verified 02/10/25 22:18 ciprofloxacin Allergy Severe Itching Verified 02/10/25 22:18 adhesive Allergy Intermediate BLISTERS Verified 02/10/25 22:18 sulfamethoxazole AdvReac Severe CAUSED Verified 02/10/25 22:18 [From Bactrim] KIDNEY PROBLEMS trimethoprim [From Bactrim] AdvReac Severe CAUSED Verified 02/10/25 22:18 KIDNEY PROBLEMS cephalexin AdvReac Intermediate REDNESS, Verified 02/10/25 22:18 FLUSHING, DIARRHEA Consultations 02/10/25 22:10 ED Decision to Admit Stat Hospital Course (1) COPD exacerbation: COPD exacerbation /complicated bronchitis hx chronic respiratory failure secondary to COPD on home O2/pulmonary hypertension UTI No sepsis Received Rocephin and doxy in ED/ on admission, continued while inpt nebs RTC, prednisone course Follow blood cultx - negat. in 48 hrs, urine cultx - repeated (as first one not conclusive) and negative, sputum cultx - light normal varsha Pt is doing well, currently on RA. On admission, pt was on 4L of suppl. O2. Cough much improved. Pt also had dysuria on admission, which has now all resolved. Pt would like to be discharged home. Pt will follow up with PCP. 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) SSS status post PPM on Coumadin, patient currently A-fib, rate controlled, INR therapeutic hypertension, stable hypothyroidism, euthyroid as of recent outpatient TSH prediabetes, hemoglobin A1c 6.1 last June 2024 Chronic anemia, hemoglobin better than baseline past tobacco abuse Total Time Total Time Spent Total Time Spent (In Minutes): 40 Discharge Plan Discharge Items Patient Disposition: Home - Self-Care Reason For Visit: SOB Discharge Diagnosis: Complicated bronchitis, COPD exacerbation UTI Condition on Discharge: Fair Activity: Per Instructions section Non-emergency contact: Primary Care Provider Call non-emergency contact if: you have any medication questions and your symptoms worsen Follow-up/Referrals: Price De [Physician Prison Warden] - (Date & Time 02/25/2025 8:00 AM Provider: Price De, [facility] Agnes Saavedra DO [Primary Care Provider] - (Date & Time 02/19/2025 11:50 AM Provider: Agnes Saavedra DO Family Medicine [facility]) Diet: Heart Healthy Addtl Attending Provider Instructions: Follow up with your primary care provider within 1 week. The appointment was scheduled for you for 02/19/2025. Finish antibiotic course as prescribed and finish prednisone course. Continue taking guaifenesin (mucinex). Pending Studies at Discharge: Yes Studies:: repeat urine cultx results, final blood cultx results Stand-Alone Forms: My [facility] [employer], Smoking Cessation Medications and DC Order Prescriptions: New cefuroxime axetil 500 mg tablet 500 mg PO BID Qty: 5 0RF doxycycline hyclate 100 mg Capsule 100 mg PO BID 2 Days Qty: 4 0RF prednisone 20 mg Tablet 40 mg PO DAILY 2 Days Qty: 4 0RF Continued warfarin [Jantoven] 2 mg Tablet 2 mg PO 3XWK Rx Instructions: TAKES 2 MG ON MONDAY, MONDAY, & MONDAY AFTERNOONS famotidine 20 mg tablet 20 mg PO QAM metoprolol succinate 25 mg tablet extended release 24 hr 50 mg PO QAM albuterol sulfate [Ventolin HFA] 90 mcg/actuation HFA aerosol inhaler 2 puff INHALATION Q4 PRN (Reason: Shortness Of Breath Or Wheezing) fluticasone propionate 50 mcg/actuation [place],Suspension 2 spray INTRANASAL QAM omeprazole 40 mg capsule,delayed release(DR/EC) 40 mg PO BID (DME) Oxygen Home Liters Per Minute See Rx Instructions .Route Qty: 1 0RF Rx Instructions: 2LPM with ambulation ketoconazole 2 % shampoo 1 applic TOPICAL DIRECTED levothyroxine 75 mcg tablet 75 mcg PO DAILYBB gabapentin 300 mg capsule 300 mg PO BID cholecalciferol (vitamin D3) [Vitamin D3] 50 mcg (2,000 unit) Tablet 50 mcg PO QAM cyanocobalamin (vitamin B-12) 100 mcg Tablet 100 mcg PO QAM ascorbic acid (vitamin C) [Vitamin C] 500 mg Tablet 500 mg PO Q OTHER DAY clindamycin phosphate 1 % gel 1 applic TOPICAL BID PRN (Reason: ITCHY AREAS NEEDED) benzonatate [Tessalon Perles] 100 mg Capsule 100 mg PO TID PRN (Reason: Cough) triamcinolone acetonide 0.1 % ointment 1 applic TOPICAL BID PRN (Reason: NEEDED) warfarin 2 mg Tablet 1 mg PO 4XWK Rx Instructions: TAKES 1 MG ON MONDAY, MONDAY, MONDAY & MONDAY AFTERNOONS. furosemide 20 mg tablet 40 mg PO 4XWK Rx Instructions: SUN, , , & SAT furosemide 20 mg tablet 60 mg PO 3XWK Rx Instructions: MON, MON, & MON. diclofenac sodium [Voltaren] 1 % Gel 2 g TOPICAL QID PRN (Reason: JOINT PAIN) Trelegy Ellipta 100-62.5-25 mcg blister with device 1 inh INHALATION DAILY potassium chloride 10 mEq tablet,ER particles/crystals 10 meq PO QAM Discharge Orders: Discharge Order (Routine); Ordered 02/14/25 Ordered By: Aj Forman Admission Data Admit Date/Time: 02/12/25 12:49 Attending Provider: Aj Forman Admit Provider: Aj Forman Primary Care Provider: Agnes Saavedra Other Providers: Praful Brunner
== END 2025-02-14 14:59 | disposition home or self-care (01) | DRG 191 ==
LOC: ED 20:56 → EDINP 20:56 → 2N 02-11 01:43